=== PATIENT | female | born 1940 | race Caucasian/White ===

== ENCOUNTER → 2016-08-01 | Outpatient (CLI) | payer OTHER ==
[~2016-08-01] MED LIST: ALBINS/ INH; ALBU0.08 INH; ALBU1AER9 INH; AMOX500C3 PO; AMT10 PO; APR25 PO; APR50 PO; ASPI81TA28 PO; CALC-323 PO; CARV25TA2 PO; CINN1CAP2 PO; CRG25 PO; DOCU100C PO; DOXY100C76 PO; FLNIN/ NAE; GLGKIT PO; INSUINJ13 SC; ISOS120T5 PO; ISOS60TA25 PO; LPT40 PO; LSX20 PO; LSX40 PO; LVQ750 PO; MULT-506 PO; NRV5 PO; NTRGSL/4 UT; NVLGI7030 SC; PLV75 PO; POLY335025 PO; TRAM-10 PO; VNTHFA/IN INH
--- NOTE | 2016-08-01 16:00 | DIAGNOSTIC IMAGING REPORT ---
MRI OF THE LUMBAR SPINE WITHOUT IV CONTRAST CLINICAL HISTORY: Chronic low back pain. Lumbar radiculopathy. COMPARISON STUDY: MRI of the lumbar spine dated 01/18/2010. CT scan of the lumbar spine dated 02/07/2010. TECHNIQUE: MRI of the lumbar spine is performed utilizing various T1 and T2-weighted sequences in the axial and sagittal planes. IV contrast was not administered for this examination. FINDINGS: Lumbar spine: Vertebral body height is maintained throughout the lumbar spine. There is evidence of laminectomy and posterior fusion at L4-L5. There is minimal anterolisthesis at L4-L5. Alignment is otherwise preserved. Small anterior osteophytes are seen throughout. Chronic degenerative endplate sclerosis is noted at L2-L3. Milder chronic endplate change is seen at L1-L2, and L5-S1. The transverse processes are intact as imaged. There is no evidence of spondylolysis. Intervertebral discs: There is evidence of discectomy at L4-L5. Degenerative disc desiccation and mild loss of height is seen in the remaining lumbar levels. Loss of height is greatest at L5-S1. Spinal cord: The visualized spinal cord is normal in morphology and signal intensity. The conus medullaris terminates at the level of L1. There is clumping and tethering of the nerve roots of the cauda equina at the level of L4-L5. T12-L1: There is a small posterior disc herniation with an inferiorly extruded fragment. This measures at least 10 mm. This causes only mild acquired compromise of the central canal with a minimum AP diameter of 11 mm. L1-L2: There is a small posterior disc bulge eccentric to the left. The central canal is clear. In conjunction with facet arthropathy and lateral marginal osteophytes, this causes left-sided neural foraminal stenosis and may impinge on the exiting left L1 nerve root. The right neural foramen appears clear. L2-L3: Unremarkable. L3-L4: There is hypertrophy of the ligamentum flavum. The central canal appears clear. The neural foramina are patent. Mild facet arthropathy is of no consequence. L4-L5: Postsurgical scarring is suggested around the thecal sac. There is minimal narrowing of the central canal which measures a minimum AP diameter of 10 mm. The neural foramina are grossly clear, but not well assessed. L5-S1: There is a posterior disc bulge eccentric to the left with annular fissure. There is no significant acquired compromise of the central canal at this level. The central canal is mildly narrowed, likely on a congenital basis. This measures up to 10 mm. There is bilateral subarticular stenosis with possible impingement on the exiting bilateral L5 nerve roots. Sacrum: The visualized sacrum is normal in morphology and signal intensity. Soft tissues: There is fatty atrophy of the paraspinous musculature. A postoperative fluid collection is seen posteriorly at the L4-L5 level. This measures 4.4 x 1.1 x 2.8 cm and is similar appearance to the 01/18/2010 examination. This does not cause mass effect on the posterior thecal sac. A left adrenal nodule is only partially visualized. This was also seen in 2010. IMPRESSION: 1. There are postoperative changes at L4-L5 as above. 2. There is circumferential scarring around the thecal sac at L4-L5. The nerve roots of the cauda equina are clumped and tethered at this level, consistent with adhesions/chronic arachnoiditis. This is similar in appearance to the 2010 examination. 3. Lumbosacral spondylosis at additional levels as above. See discussion for detailed level by level analysis. 4. There is a disc herniation posteriorly at T12-L1 with an inferiorly extruded fragment. This causes only mild acquired compromise of the central canal. 5. No destructive bony lesion is seen. Degenerative endplate change as above. 6. A small postoperative fluid collection posteriorly at L4-L5 likely represents a seroma and this is unchanged from 2010. This is of doubtful significance. Dictated: 08/01/2016 3:25 PM Transcribed: 08/01/2016 4:00 PM Ej Electronically signed by: Clinton Henson M.D. 08/01/2016 4:22 PM Dictated Date/Time: 08/01/2016 3:25 PM
== END | disposition home or self-care (01) ==
LOC: C.MRIBC 13:47
PROVIDERS: ATTEND Pain Medicine Interventional Pain Medicine
DX: M47.27 Other spondylosis with radiculopathy, lumbosacral region (principal); M51.25 Other intervertebral disc displacement, thoracolumbar region; R90.89 Other abnormal findings on diagnostic imaging of central nervous system

== ENCOUNTER → 2016-09-05 | Outpatient (CLI) | payer OTHER ==
[2016-09-05 12:43] LABS: URINE APPEARANCE CLEAR (CLEAR); URINE BILIRUBIN NEG (NEG); URINE COLOR YELLOW; URINE EPITHELIAL CELL AUTO >30 /lpf (0-5); URINE NITRITE NEG (NEG); URINE SPECIFIC GRAVITY 1.014 (1.000-1.030); UROBILINOGEN NEG (NEG)
[2016-09-05 12:44] LABS: HEMATOCRIT 35.2 % (37-47); MEAN CELL VOLUME 94.4 fL (80-100); MEAN CORPUSCULAR HGB CONC 31.8 g/dl (32-36); MEAN PLATELET VOLUME 11.2 fL (7.4-10.4); PLATELET COUNT 152 K/uL (130-400); RED BLOOD COUNT 3.73 M/uL (4.2-5.4); WHITE BLOOD COUNT 6.87 K/uL (4.8-10.8)
[2016-09-05 12:55] LABS: MANUAL MICROSCOPIC REQUIRED? NO; REVIEW REQ? NO
[2016-09-05 13:05] LABS: BLOOD UREA NITROGEN 24 mg/dl (7-18); BUN/CREATININE RATIO 20.1 (10-20); CALCIUM 8.9 mg/dl (8.5-10.1); CARBON DIOXIDE 29 mmol/L (21-32); CHLORIDE 108 mmol/L (98-107); GLUCOSE 98 mg/dl (70-99); POTASSIUM 4.3 mmol/L (3.5-5.1); SODIUM 143 mmol/L (136-145)
[2016-09-05 13:17] LABS: ALKALINE PHOSPHATASE 37 U/L (45-117); ALT/SGPT 28 U/L (12-78); AST/SGOT 16 U/L (15-37); PHOSPHORUS 3.6 mg/dl (2.5-4.9)
[2016-09-05 14:12] LABS: ESTIMATED AVERAGE GLUCOSE 157 mg/dl; HA1C FLAG Normal (Normal)
[2016-09-05 14:32] LABS: URINE PROTIEN/CREAT RATIO 1.3 (0-0.2); URINE TOTAL PROTEIN 72.5 mg/dl (0-11.9)
== END | disposition home or self-care (01) ==
LOC: C.LABBFT 09:06
PROVIDERS: ATTEND Internal Medicine Nephrology
DX: I12.9 Hypertensive chronic kidney disease with stage 1 through stage 4 chronic kidney disease, or unspecified chronic kidney disease (principal); N18.3 Chronic kidney disease, stage 3 (moderate); R80.9 Proteinuria, unspecified; D64.9 Anemia, unspecified; N25.81 Secondary hyperparathyroidism of renal origin; E11.22 Type 2 diabetes mellitus with diabetic chronic kidney disease; R53.83 Other fatigue; E78.00 Pure hypercholesterolemia, unspecified

== ENCOUNTER 2017-01-12 12:43 | Emergency (ER) | payer OTHER ==
[~2017-01-12] VITALS: Ht 154.9 cm; Wt 102.4 kg
[~2017-01-12 12:43] MED LIST changes: -ALBINS/ INH; -AMOX500C3 PO; -AMT10 PO; -APR25 PO; -ASPI81TA28 PO; -CRG25 PO; -DOCU100C PO; -DOXY100C76 PO; -FLNIN/ NAE; -INSUINJ13 SC; -ISOS120T5 PO; -LPT40 PO; -LSX40 PO; -LVQ750 PO; -MULT-506 PO; -NRV5 PO; -NTRGSL/4 UT; -PLV75 PO; -POLY335025 PO; -TRAM-10 PO; -VNTHFA/IN INH
[2017-01-12 12:47] VITALS: TEMP 36.8; Ht 154.9 cm; Wt 102.4 kg
[2017-01-12] MEDS ORDERED: TRAMADOL HCL 50 MG TAB PO STA (13:26)
--- NOTE | 2017-01-12 13:26 | EMERGENCY ROOM VISIT NOTE ---
History First contact with patient: 13:04 Chief Complaint: LEG PAIN,LEG INJURY Stated Complaint: L LOWER LEG RED & SORE History of Present Illness The patient is a 76 year old female who presents to the Emergency Room with complaints of left leg pain and redness that started 2 days ago. The patient denies any injury to the leg. She has tried tramadol with minimal relief. She denies any fever or chills. She denies any history of blood clots. She does admit to mild shortness of breath particularly with exertion. She does have a history of asthma. She is also complaining of a mild productive cough with green sputum. The cough has been intermittent over the last few weeks. She denies any chest pain or pressure. Review of Systems 10 system review performed and negative unless noted in HPI or below Past Medical/Surgical History Medical Problems: (1) Cellulitis of face (2) Chest pain (3) Chronic diastolic (congestive) heart failure (4) Diabetes (5) Heart disease (6) Hypertension (7) Kidney disease (8) Parotitis not due to mumps Surgical Problems: (1) H/O heart bypass surgery (2) History of heart artery stent (3) Left femoral psuedoanerysm repair Family History Diabetes mellitus Gallbladder disease Heart disease Hypertension Kidney disease Kidney stones Social History Smoking Status: Never Smoker Alcohol Use: none Marital Status: Housing Status: lives alone Occupation Status: retired Current/Historical Medications Scheduled Amitriptyline HCl (Amitriptyline HCl), 30 MG PO HS Aspirin (Aspirin Ec), 81 MG PO QAM Atorvastatin (Atorvastatin Calcium), 80 MG PO HS Carvedilol (Coreg), 37.5 MG PO BID Cinnamon (Cinnamon), 1,000 MG PO HS Clopidogrel Bisulfate (Clopidogrel), 75 MG PO QAM Docusate Sodium (Stool Softener), 100 MG PO HS Doxycycline Monohydrate (Monodox), 100 MG PO BID Furosemide (Furosemide), 20 MG PO QAM Hydralazine HCl (Hydralazine HCl), 50 MG PO TID Insulin Aspart Protamine & Asp (Novolog Mix 70/30 Prefill), 40 UNITS SC QAM Insulin Aspart Protamine & Asp (Novolog Mix 70/30), 90 UNITS SC QPM Isosorbide Mononitrate Ext Rel (Imdur Ext Rel), 120 MG PO BID Multivitamin (Multivitamin), 1 TAB PO QAM Tramadol (Ultram), 100 MG PO BID Scheduled PRN Fluticasone Propionate (Fluticasone Propionate), 2 SPRAYS ZANE DAILY PRN for Allergies Nitroglycerin (Nitrostat), 0.4 MG UT UD PRN for Chest Pain Polyethylene Glycol 3350 (Miralax), 1 PACK PO DAILY PRN for Constipation Physical Exam Vital Signs Date Time Temp Pulse Resp B/P (MAP) Pulse Ox O2 Delivery O2 Flow Rate FiO2 01/12/17 17:15 73 18 205/78 98 01/12/17 16:55 73 221/85 01/12/17 16:45 80 18 221/88 98 Room Air 01/12/17 15:30 76 18 199/118 97 Room Air 01/12/17 14:12 71 18 215/96 98 Room Air 01/12/17 12:47 36.8 77 18 185/71 96 Room Air Physical Exam VITALS: Vitals are noted on the nurse's note and reviewed by myself. Vital signs stable. GENERAL: 76-year-old female, in no acute distress, nondiaphoretic, well- developed well-nourished. SKIN: Mild erythema noted to the anterior aspect of the left bull. There is no erythematous streaking. The skin is intact. No significant warmth appreciated. HEAD: Normocephalic atraumatic. MOUTH: Mucous membranes slightly dry . NECK: No JVD.well-healed incisional scars bilaterally HEART: Regular rate and rhythm without murmurs gallops or rubs. LUNGS: Clear to auscultation bilaterally without wheezes, rales or rhonchi. No accessory muscle use. ABDOMEN: Positive bowel sounds x 4.Soft, nontender, without organomegaly. No guarding or rebound tenderness. MUSCULOSKELETAL: Trace pitting edema in the lower extremities bilaterally. Skin as noted above. Negative Homans sign. No significant calf tenderness. Strength 5/5 throughout. NEURO: Patient was alert and oriented to person place and time. Normal sensation to touch. No focal neurological deficits. Medical Decision & Procedures ER Provider Diagnostic Interpretation: LEFT VENOUS DOPP LOWER EXT UNILAT CLINICAL HISTORY: 76 years-old Female presenting with LLE redness swelling. TECHNIQUE: Real-time grayscale and color and spectral Doppler ultrasound imaging of the veins of the left lower extremity was performed. Compression and augmentation were also utilized. COMPARISON: 05/30/2015. FINDINGS: Left: Common femoral vein: Patent. Femoral vein: Patent. Greater saphenous vein: Patent. Popliteal vein: Patent. Calf veins: Limited visualization. Other: Heterogeneously hypoechoic 1.9 x 3.3 x 1.0 cm collection in the popliteal fossa likely represents a popliteal cyst. IMPRESSION: No evidence of deep venous thrombosis. Electronically signed by: Dusty Askew M.D. 01/12/2017 2:50 PM Dictated Date/Time: 01/12/2017 2:49 PM The status of this report is Signed. Draft = Not yet reviewed or approved by Radiologist. Signed = Reviewed and approved by Radiologist. CHEST 2 VIEWS ROUTINE CLINICAL HISTORY: 76 years-old Female presenting with mild SOB and cough. TECHNIQUE: PA and lateral views of the chest were obtained. COMPARISON: 03/28/2016. FINDINGS: Median sternotomy wires and bypass graft rings noted. Atherosclerosis of aortic arch. Mild prominence of the cardiac silhouette unchanged. The main pulmonary artery may also be slightly enlarged. Increased prominence of the lateral laura, likely representing prominent vasculature. Retrocardiac opacity suggested. No large effusion or pneumothorax. Degenerative changes of the spine. Cholecystectomy clips noted. IMPRESSION: 1. Left lower lobe opacity. Infectious etiology cannot be excluded. 2. Cardiomegaly with increased prominence of pulmonary vasculature. No david pulmonary edema. Electronically signed by: Dusty Askew M.D. 01/12/2017 2:40 PM Dictated Date/Time: 01/12/2017 2:37 PM The status of this report is Signed. Draft = Not yet reviewed or approved by Radiologist. Signed = Reviewed and approved by Radiologist. Laboratory Results 01/12/17 13:55 Red Blood Count 3.78, Mean Corpuscular Volume 90.7, Mean Corpuscular Hemoglobin 29.6, Mean Corpuscular Hemoglobin Concent 32.7, Mean Platelet Volume 10.9, Neutrophils (%) (Auto) 70.4, Lymphocytes (%) (Auto) 16.8, Monocytes (%) (Auto) 9.6, Eosinophils (%) (Auto) 2.6, Basophils (%) (Auto) 0.3, Neutrophils # (Auto) 6.72, Lymphocytes # (Auto) 1.61, Monocytes # (Auto) 0.92, Eosinophils # (Auto) 0.25, Basophils # (Auto) 0.03 01/12/17 13:55 Test 01/12/17 13:55 White Blood Count 9.56 K/uL (4.8-10.8) Red Blood Count 3.78 M/uL (4.2-5.4) Hemoglobin 11.2 g/dL (12.0-16.0) Hematocrit 34.3 % (37-47) Mean Corpuscular Volume 90.7 fL (80-100) Mean Corpuscular Hemoglobin 29.6 pg (25-34) Mean Corpuscular Hemoglobin Concent 32.7 g/dl (32-36) Platelet Count 152 K/uL (130-400) Mean Platelet Volume 10.9 fL (7.4-10.4) Neutrophils (%) (Auto) 70.4 % Lymphocytes (%) (Auto) 16.8 % Monocytes (%) (Auto) 9.6 % Eosinophils (%) (Auto) 2.6 % Basophils (%) (Auto) 0.3 % Neutrophils # (Auto) 6.72 K/uL (1.4-6.5) Lymphocytes # (Auto) 1.61 K/uL (1.2-3.4) Monocytes # (Auto) 0.92 K/uL (0.11-0.59) Eosinophils # (Auto) 0.25 K/uL (0-0.5) Basophils # (Auto) 0.03 K/uL (0-0.2) RDW Standard Deviation 45.8 fL (36.4-46.3) RDW Coefficient of Variation 14.0 % (11.5-14.5) Immature Granulocyte % (Auto) 0.3 % Immature Granulocyte # (Auto) 0.03 K/uL (0.00-0.02) Anion Gap 6.0 mmol/L (3-11) Est Creatinine Clear Calc Drug Dose 41.1 ml/min Estimated GFR () 46.5 Estimated GFR (Non- 40.1 BUN/Creatinine Ratio 20.0 (10-20) Calcium Level 9.3 mg/dl (8.5-10.1) Chemistry Specimen Hemolysis Medications Administered Medications (Trade) Dose Ordered Sig/Nick Route Start Time Stop Time Status Last Admin Dose Admin Tramadol HCl (Ultram Tab) 50 mg NOW STAT PO 01/12/17 13:26 01/12/17 13:27 DC 01/12/17 13:55 50 MG Albuterol/ Ipratropium (Duoneb) 3 ml STK-MED ONCE .ROUTE 01/12/17 13:54 01/12/17 13:55 DC 01/12/17 13:57 3 ML Ceftriaxone Sodium 1 gm/ Dextrose 50 ml @ 100 mls/hr TODAY@1530 IV 01/12/17 15:30 01/12/17 17:00 DC 01/12/17 15:30 100 MLS/HR Hydralazine HCl (HydrALAZINE INJ) 10 mg NOW STAT IV. 01/12/17 15:10 01/12/17 15:11 DC 01/12/17 15:34 10 MG Metoprolol Tartrate (Lopressor Iv) 5 mg NOW STAT IV 01/12/17 16:48 01/12/17 16:49 DC 01/12/17 16:55 5 MG ED Course Patient was seen and examined Vital signs including blood pressure were reviewed medications list was verified with patient Labs were obtained, and a saline lock was established The patient was given 1 Ultram 50 mg by mouth for pain Imaging was performed and reviewed The patient was reassessed and resting comfortably. Her blood pressure was noted to still be high. She was given 1 dose of hydralazine 10 mg IV. Upon reevaluation, the patient still had an elevated blood pressure. She was given 1 dose of metoprolol 5 mg IV. We discussed at length the patient's blood pressure. She denied any symptoms. She was advised to follow-up with her primary care physician for a recheck. I reviewed discharge instructions the patient. They voiced understanding and had no further questions. Medical Decision Differential diagnosis: DVT, cellulitis, PE, asthma exacerbation, pneumonia, bronchitis, CHF exacerbation This patient is a 76-year-old female that presented to the emergency department with left lower extremity redness and pain for approximately 2 days. No known injury. My main concerns were possibly a DVT or mild cellulitis. The patient is afebrile. There is no leukocytosis. There was no DVT. Believe she likely has a mild cellulitis. She has also had a cough with a questionable opacity on the x-ray. She was put on doxycycline, which should cover both a pneumonia and cellulitis. She was not hypoxic and had good symptomatic relief with the DuoNeb. She will continue her nebulizer treatments as well at home. Of note, the patient's blood pressure was elevated in the emergency department. She did miss her dose of hydralazine at home. She denied any symptoms such as dizziness, headache, chest pain or pressure. She also informed me that she gets white coat hypertension. I advised her to follow-up with her PCP as soon as possible for this. She was educated on symptoms of hypertensive urgency, for which she agrees to return to emergency department Medication Reconcilliation Current Medication List: was personally reviewed by me Blood Pressure Screening Patient's blood pressure: Elevated blood pressure Blood pressure disposition: Elevated BP felt to be situational Impression Primary Impression: Left leg cellulitis Additional Impression: Hypertension Departure Information Dispostion Home / Self-Care Condition GOOD Prescriptions Doxycycline Monohydrate (Monodox) 100 Mg Cap 100 MG PO BID for 7 Days, #14 CAP Prov: Mariely Pinzon PA-C 01/12/17 Referrals Nicolette Marquez M.D. (PCP) Patient Instructions Cellulitis Dc, My [facility] Additional Instructions You were treated in the emergency department today for cellulitis of your left leg and a respiratory tract infection. Please finish the entire course of antibiotics Please use your nebulizer every 6 hours for the next 48 hours Please follow-up with your primary care physician within the next 2-3 days for a recheck of your leg Ibuprofen 400 mg and/or Tylenol 1000 mg every 8 hours as needed for pain or fever You may also alternate these medications for more effective pain relief: Ibuprofen --4 HRS--> Tylenol --4 HRS--> ibuprofen --4 HRS--> Tylenol .... Return to the emergency department if you have any of the following symptoms: -Fever of 102F or greater -Persistent vomiting - Persistent diarrhea -Lethargy -Chest pain -Shortness of breath -Increasing redness, swelling or pain of the leg Problem Qualifiers
[2017-01-12] MEDS ORDERED: ALBUT/IPRATROP 3MG/0.5MG NEB 3 ML VIAL INH STA (13:46)
[2017-01-12] MEDS ORDERED: ALBUT/IPRATROP 3MG/0.5MG NEB 3 ML VIAL ONE (13:54)
[2017-01-12 14:07] LABS: BASO % 0.3 %; BASO ABS # 0.03 K/uL (0-0.2); COMPLETE YES; EOS % 2.6 %; HEMATOCRIT 34.3 % (37-47); IG% 0.3 %; LYMPH % 16.8 %; LYMPH ABS # 1.61 K/uL (1.2-3.4); MEAN CELL VOLUME 90.7 fL (80-100); MEAN CORPUSCULAR HEMOGLOBIN 29.6 pg (25-34); MEAN CORPUSCULAR HGB CONC 32.7 g/dl (32-36); MEAN PLATELET VOLUME 10.9 fL (7.4-10.4); MONO % 9.6 %; NEUT % 70.4 %; PLATELET COUNT 152 K/uL (130-400); RED BLOOD COUNT 3.78 M/uL (4.2-5.4); WHITE BLOOD COUNT 9.56 K/uL (4.8-10.8)
[2017-01-12 14:31] LABS: CALCIUM 9.3 mg/dl (8.5-10.1); CREATININE 1.3 mg/dl (0.60-1.20); POTASSIUM 4.4 mmol/L (3.5-5.1)
--- NOTE | 2017-01-12 14:41 | DIAGNOSTIC IMAGING REPORT ---
CHEST 2 VIEWS ROUTINE CLINICAL HISTORY: 76 years-old Female presenting with mild SOB and cough. TECHNIQUE: PA and lateral views of the chest were obtained. COMPARISON: 03/28/2016. FINDINGS: Median sternotomy wires and bypass graft rings noted. Atherosclerosis of aortic arch. Mild prominence of the cardiac silhouette unchanged. The main pulmonary artery may also be slightly enlarged. Increased prominence of the lateral laura, likely representing prominent vasculature. Retrocardiac opacity suggested. No large effusion or pneumothorax. Degenerative changes of the spine. Cholecystectomy clips noted. IMPRESSION: 1. Left lower lobe opacity. Infectious etiology cannot be excluded. 2. Cardiomegaly with increased prominence of pulmonary vasculature. No david pulmonary edema. Electronically signed by: Dusty Askew M.D. 01/12/2017 2:40 PM Dictated Date/Time: 01/12/2017 2:37 PM
--- NOTE | 2017-01-12 14:51 | DIAGNOSTIC IMAGING REPORT ---
LEFT VENOUS DOPP LOWER EXT UNILAT CLINICAL HISTORY: 76 years-old Female presenting with LLE redness swelling. TECHNIQUE: Real-time grayscale and color and spectral Doppler ultrasound imaging of the veins of the left lower extremity was performed. Compression and augmentation were also utilized. COMPARISON: 05/30/2015. FINDINGS: Left: Common femoral vein: Patent. Femoral vein: Patent. Greater saphenous vein: Patent. Popliteal vein: Patent. Calf veins: Limited visualization. Other: Heterogeneously hypoechoic 1.9 x 3.3 x 1.0 cm collection in the popliteal fossa likely represents a popliteal cyst. IMPRESSION: No evidence of deep venous thrombosis. Electronically signed by: Dusty Askew M.D. 01/12/2017 2:50 PM Dictated Date/Time: 01/12/2017 2:49 PM
--- NOTE | 2017-01-12 15:03 | EMERGENCY ROOM VISIT NOTE ---
ED Visit Note First contact with patient: 13:04 I have seen and examined this patient with Mariely Pinzon and generally agree with the treatment plan as discussed. Problem List Medical Problems: (1) Diabetes Status: Chronic (2) Heart disease Status: Chronic (3) Hypertension Status: Chronic (4) Kidney disease Status: Chronic Surgical Problems: (1) H/O heart bypass surgery Status: Resolved (2) History of heart artery stent Status: Resolved (3) Left femoral psuedoanerysm repair Status: Resolved Current/Historical Medications Scheduled Amitriptyline HCl (Amitriptyline HCl), 30 MG PO HS Aspirin (Aspirin Ec), 81 MG PO QAM Atorvastatin (Atorvastatin Calcium), 80 MG PO HS Carvedilol (Coreg), 37.5 MG PO BID Cinnamon (Cinnamon), 1,000 MG PO HS Clopidogrel Bisulfate (Clopidogrel), 75 MG PO QAM Docusate Sodium (Stool Softener), 100 MG PO HS Furosemide (Furosemide), 20 MG PO QAM Hydralazine HCl (Hydralazine HCl), 50 MG PO TID Insulin Aspart Protamine & Asp (Novolog Mix 70/30 Prefill), 40 UNITS SC QAM Insulin Aspart Protamine & Asp (Novolog Mix 70/30), 90 UNITS SC QPM Isosorbide Mononitrate Ext Rel (Imdur Ext Rel), 120 MG PO BID Multivitamin (Multivitamin), 1 TAB PO QAM Tramadol (Ultram), 100 MG PO BID Scheduled PRN Fluticasone Propionate (Fluticasone Propionate), 2 SPRAYS ZANE DAILY PRN for Allergies Nitroglycerin (Nitrostat), 0.4 MG UT UD PRN for Chest Pain Polyethylene Glycol 3350 (Miralax), 1 PACK PO DAILY PRN for Constipation Allergies Coded Allergies: Sulfa Antibiotics (Verified Allergy, Intermediate, RASH/PRURITIS, 03/28/16) Omeprazole (Verified Adverse Reaction, Intermediate, interacts w/ clopidigrol, 03/28/16) Chlorpropamide (Verified Adverse Reaction, Mild, N/V, 03/28/16) ARI Inhibitors (Verified Adverse Reaction, Unknown, AVOIDS SECONDARY TO "OTHER MEDICATIONS" PER PT, 03/28/16) Vital Signs Date Time Temp Pulse Resp B/P (MAP) Pulse Ox O2 Delivery O2 Flow Rate FiO2 01/12/17 14:12 71 18 215/96 98 Room Air 01/12/17 12:47 36.8 77 18 185/71 96 Room Air Laboratory Results 01/12/17 13:55 Red Blood Count 3.78, Mean Corpuscular Volume 90.7, Mean Corpuscular Hemoglobin 29.6, Mean Corpuscular Hemoglobin Concent 32.7, Mean Platelet Volume 10.9, Neutrophils (%) (Auto) 70.4, Lymphocytes (%) (Auto) 16.8, Monocytes (%) (Auto) 9.6, Eosinophils (%) (Auto) 2.6, Basophils (%) (Auto) 0.3, Neutrophils # (Auto) 6.72, Lymphocytes # (Auto) 1.61, Monocytes # (Auto) 0.92, Eosinophils # (Auto) 0.25, Basophils # (Auto) 0.03 01/12/17 13:55 Test 01/12/17 13:55 White Blood Count 9.56 K/uL (4.8-10.8) Red Blood Count 3.78 M/uL (4.2-5.4) Hemoglobin 11.2 g/dL (12.0-16.0) Hematocrit 34.3 % (37-47) Mean Corpuscular Volume 90.7 fL (80-100) Mean Corpuscular Hemoglobin 29.6 pg (25-34) Mean Corpuscular Hemoglobin Concent 32.7 g/dl (32-36) Platelet Count 152 K/uL (130-400) Mean Platelet Volume 10.9 fL (7.4-10.4) Neutrophils (%) (Auto) 70.4 % Lymphocytes (%) (Auto) 16.8 % Monocytes (%) (Auto) 9.6 % Eosinophils (%) (Auto) 2.6 % Basophils (%) (Auto) 0.3 % Neutrophils # (Auto) 6.72 K/uL (1.4-6.5) Lymphocytes # (Auto) 1.61 K/uL (1.2-3.4) Monocytes # (Auto) 0.92 K/uL (0.11-0.59) Eosinophils # (Auto) 0.25 K/uL (0-0.5) Basophils # (Auto) 0.03 K/uL (0-0.2) RDW Standard Deviation 45.8 fL (36.4-46.3) RDW Coefficient of Variation 14.0 % (11.5-14.5) Immature Granulocyte % (Auto) 0.3 % Immature Granulocyte # (Auto) 0.03 K/uL (0.00-0.02) Anion Gap 6.0 mmol/L (3-11) Est Creatinine Clear Calc Drug Dose 41.1 ml/min Estimated GFR () 46.5 Estimated GFR (Non- 40.1 BUN/Creatinine Ratio 20.0 (10-20) Calcium Level 9.3 mg/dl (8.5-10.1) Chemistry Specimen Hemolysis Medications Administered Medications (Trade) Dose Ordered Sig/Nick Route Start Time Stop Time Status Last Admin Dose Admin Tramadol HCl (Ultram Tab) 50 mg NOW STAT PO 01/12/17 13:26 01/12/17 13:27 DC 01/12/17 13:55 50 MG Albuterol/ Ipratropium (Duoneb) 3 ml STK-MED ONCE .ROUTE 01/12/17 13:54 01/12/17 13:55 DC 01/12/17 13:57 3 ML Departure Information Referrals Nicolette Marquez M.D. (PCP) Patient Instructions [facility]
[2017-01-12] MEDS ORDERED: HydrALAZINE HCL 20 MG/ML VIAL IV. STA (15:10)
[2017-01-12] MEDS ORDERED: CEFTRIAXONE SOD INJ 1 GM in DEXTROSE 5% ADD-VANTAGE 50ML 50 ML IV SCH (15:30)
[2017-01-12] MEDS ORDERED: CEFTRIAXONE SOD INJ 1 GM ADDVIAL ONE (15:32)
[2017-01-12] MEDS ORDERED: DOXY100C76 PO (15:49)
[2017-01-12] MEDS ORDERED: METOPROLOL TARTRATE 1 MG/ML VIAL IV STA (16:48)
[2017-01-12 17:15] VITALS: BP 205/78; PULSE 73; O2SAT 98
[2017-02-17] MEDS ORDERED: MULT-506 PO (02:20)
[2017-02-17] MEDS ORDERED: AMT10 PO (09:55)
[2017-02-17] MEDS ORDERED: TRAM-10 PO (11:50)
[2017-02-17] MEDS ORDERED: ISOS120T5 PO (13:04)
[2017-02-17] MEDS ORDERED: INSUINJ13 SC (13:04)
[2017-02-17] MEDS ORDERED: NVLGI7030 SC (13:04)
[2017-02-17] MEDS ORDERED: POLY335025 PO (15:19)
== END 2017-01-12 17:15 | disposition home or self-care (01) ==
LOC: C.EDB 12:44
DX: L03.116 Cellulitis of left lower limb (principal); I11.0 Hypertensive heart disease with heart failure; J45.909 Unspecified asthma, uncomplicated; E11.9 Type 2 diabetes mellitus without complications; N28.9 Disorder of kidney and ureter, unspecified; Z95.1 Presence of aortocoronary bypass graft; Z83.3 Family history of diabetes mellitus; Z83.79 Family history of other diseases of the digestive system; Z82.49 Family history of ischemic heart disease and other diseases of the circulatory system; Z84.1 Family history of disorders of kidney and ureter; Z79.82 Long term (current) use of aspirin; Z79.4 Long term (current) use of insulin; Z79.899 Other long term (current) drug therapy

== ENCOUNTER 2017-02-17 20:23 | Inpatient (IN) | payer OTHER ==
[~2017-02-17] VITALS: Ht 157.5 cm; Wt 103.9 kg
[~2017-02-17 20:23] MED LIST changes: -ALBU0.08 INH; -ALBU1AER9 INH; +AMT10 PO; -CALC-323 PO; -GLGKIT PO; +INSUINJ13 SC; +ISOS120T5 PO; -ISOS60TA25 PO; +MULT-506 PO; +POLY335025 PO; +TRAM-10 PO
[2017-02-17] MEDS ORDERED: PLV75 PO (20:25)
[2017-02-17] MEDS ORDERED: LPT40 PO (20:26)
[2017-02-17] MEDS ORDERED: NTRGSL/4 UT (20:28)
[2017-02-17] MEDS ORDERED: ASPI81TA28 PO (20:28)
[2017-02-17] MEDS ORDERED: FLNIN/ NAE (20:30)
[2017-02-17] MEDS ORDERED: ASPIRIN 81 MG CHEW PO STA (20:30)
[2017-02-17] MEDS ORDERED: ONDANSETRON INJ 2 MG/ML 2 ML VIAL IV STA (20:33)
[2017-02-17] MEDS ORDERED: DOCU100C PO (20:35)
[2017-02-17] MEDS ORDERED: MoRPHine SULFATE 4 MG/ML 1 ML CARP\\VIAL IV PRN (20:45)
[2017-02-17] MEDS: NITROGLYCERIN 0.4 MG SL PER TAB CHARGE SL PRN ×2 (20:55→21:03)
[2017-02-17 21:03] LABS: BASO % 0.3 %; BASO ABS # 0.02 K/uL (0-0.2); COMPLETE YES; EOS % 1.8 %; IG% 0.4 %; LYMPH % 20.7 %; LYMPH ABS # 1.51 K/uL (1.2-3.4); MEAN CELL VOLUME 91.4 fL (80-100); MEAN CORPUSCULAR HEMOGLOBIN 29.4 pg (25-34); MEAN CORPUSCULAR HGB CONC 32.1 g/dl (32-36); MEAN PLATELET VOLUME 10.8 fL (7.4-10.4); NEUT % 69.8 %; PLATELET COUNT 165 K/uL (130-400); RED BLOOD COUNT 3.61 M/uL (4.2-5.4); WHITE BLOOD COUNT 7.28 K/uL (4.8-10.8)
[2017-02-17 21:20] LABS: BUN/CREATININE RATIO 17.1 (10-20); CALCIUM 8.9 mg/dl (8.5-10.1); CREATININE 1.6 mg/dl (0.60-1.20); POTASSIUM 4.2 mmol/L (3.5-5.1)
[2017-02-17 21:21] LABS: INR 1.1 (0.9-1.1); PROTHROMBIN TIME (PATIENT) 11.6 SECONDS (9.0-12.0)
[2017-02-17 21:25] LABS: CKMB/CK RATIO 2.2 (0-3.0)
--- NOTE | 2017-02-17 21:40 | EMERGENCY ROOM VISIT NOTE ---
History Report prepared by Linda: Loli Hoover Under the Supervision of: Dr. Mamadou Sosa D.O. First contact with patient: 20:26 Chief Complaint: CHEST PAIN Stated Complaint: SOB,FEEL LIKE BEING CHOKED,CHEST PAIN History of Present Illness The patient is a 76 year old female who presents to the Emergency Room with complaints of constant chest pain for the past hour. She reports shortness of breath and states that it feels like she is being choked. Her symptoms are worsened with exertion. Her chest pain radiates into her upper back. The patient rates her pain as a 5/10 in severity. She has a history of cardiac issues and states that these symptoms feel similar. She has been feeling short of breath for a few weeks. She was recently at her PCP office a few weeks ago and diagnosed with pneumonia. The patient denies fevers, cough, nausea, abdominal pain, and any worsening leg swelling. She takes aspirin and Plavix. She did not take any nitro today. She denies any personal history of blood clots. Source of History: patient Onset: 1 hour ago Position: chest Symptom Intensity: 5/10 Quality: other (choking) Timing: constant Modifying Factors (Worsening): exertion Associated Symptoms: + SOB, + back pain (upper), No cough, No nausea, No abdominal pain Review of Systems See HPI for pertinent positives & negatives. A total of 10 systems reviewed and were otherwise negative. Past Medical & Surgical Medical Problems: (1) Cellulitis of face (2) Chest pain (3) Chronic diastolic (congestive) heart failure (4) Diabetes (5) Heart disease (6) Hypertension (7) Kidney disease (8) Parotitis not due to mumps Surgical Problems: (1) H/O heart bypass surgery (2) History of heart artery stent (3) Left femoral psuedoanerysm repair Family History Diabetes mellitus Gallbladder disease Heart disease Hypertension Kidney disease Kidney stones Social History Smoking Status: Never Smoker Alcohol Use: none Marital Status: Housing Status: lives alone Occupation Status: retired Current/Historical Medications Scheduled Amitriptyline HCl (Amitriptyline HCl), 30 MG PO HS Amoxicillin (Amoxil), 500 MG PO TID Aspirin (Aspirin Ec), 81 MG PO QAM Atorvastatin (Atorvastatin Calcium), 80 MG PO HS Carvedilol (Carvedilol), 37.5 MG PO BID Clopidogrel Bisulfate (Clopidogrel), 75 MG PO QAM Docusate Sodium (Stool Softener), 100 MG PO HS Furosemide (Furosemide), 20 MG PO DAILY Hydralazine Hcl (Apresoline), 25 MG PO TID Insulin Aspart Protamine & Asp (Novolog Mix 70/30 Prefill), 40 UNITS SC QAM Insulin Aspart Protamine & Asp (Novolog Mix 70/30), 90 UNITS SC QPM Isosorbide Mononitrate Ext Rel (Imdur Ext Rel), 120 MG PO BID Multivitamin (Multivitamin), 1 TAB PO QAM Tramadol (Ultram), 100 MG PO BID Scheduled PRN Albuterol Hfa (Ventolin Hfa), 2 PUFF INH Q6H PRN for Shortness of Breath Albuterol Sulf (Proventil 0.083% 2.5MG/3ML), 2.5 MG INH TID PRN for Shortness of Breath Cinnamon (Cinnamon), 2 CAP PO DAILY PRN for HIGH BP Fluticasone Propionate (Fluticasone Propionate), 2 SPRAYS ZANE DAILY PRN for Allergies Nitroglycerin (Nitrostat), 0.4 MG UT UD PRN for Chest Pain Polyethylene Glycol 3350 (Miralax), 1 PACK PO DAILY PRN for Constipation Allergies Coded Allergies: Sulfa Antibiotics (Verified Allergy, Intermediate, RASH/PRURITIS, 03/28/16) Omeprazole (Verified Adverse Reaction, Intermediate, interacts w/ clopidigrol, 03/28/16) Chlorpropamide (Verified Adverse Reaction, Mild, N/V, 03/28/16) ARI Inhibitors (Verified Adverse Reaction, Unknown, AVOIDS SECONDARY TO "OTHER MEDICATIONS" PER PT, 03/28/16) Physical Exam Vital Signs Date Time Temp Pulse Resp B/P (MAP) Pulse Ox O2 Delivery O2 Flow Rate FiO2 02/17/17 22:39 70 177/76 02/17/17 22:00 77 20 214/83 97 Nasal Cannula 3.0 02/17/17 21:15 76 20 196/84 97 Nasal Cannula 3.0 02/17/17 21:00 84 22 189/80 95 Nasal Cannula 3.0 02/17/17 20:55 86 24 198/109 95 Nasal Cannula 2.0 02/17/17 20:45 90 02/17/17 20:32 Room Air 02/17/17 20:32 36.9 89 22 202/114 94 Room Air 02/17/17 20:32 Room Air Physical Exam GENERAL: Patient is awake, alert, very anxious and uncomfortable appearing, appears to be in significant pain. EYES: The conjunctivae are clear. The pupils are round and reactive. EARS, NOSE, MOUTH AND THROAT: The nose is without any evidence of any deformity. Mucous membranes are moist tongue is midline NECK: The neck is nontender and supple. RESPIRATORY: Breath sounds diminished throughout with rales at each base, mild tachypnea. CARDIOVASCULAR: Regular rate and rhythm noted there no murmurs rubs or gallops normal S1 normal S2 GASTROINTESTINAL: The abdomen is soft. Bowel sounds are present in all quadrants. Abdomen is nontender MUSCULOSKELETAL/EXTREMITIES: There is no evidence of gross deformity full range of motion is noted in the hips and shoulders SKIN: Pedal edema bilaterally. There is no obvious evidence of any rash. There are no petechiae, pallor or cyanosis noted. NEUROLOGIC: Patient is awake alert and oriented x3 Medical Decision & Procedures ER Provider Diagnostic Interpretation: A repeat ECG reveals a NSR at 80, RBBB noted, improvement of previously noted ST segment depression. Radiology results as stated below per my review and radiologist interpretation: CHEST ONE VIEW PORTABLE HISTORY: 76 years-old Female EVALUATE RESPIRATORY DISTRESS.DYSPNEA acute respiratory distress with atypical chest pain. COMPARISON: Chest radiograph 01/12/2017 TECHNIQUE: Portable erect AP view of the chest. FINDINGS: Cardiac silhouette is mildly enlarged. Prior median sternotomy. There is mild pulmonary vascular congestion with persistent patchy bibasilar opacities. No overt pulmonary edema. The bones are grossly intact. There is fusion hardware of the lower cervical spine. IMPRESSION: 1. Cardiomegaly and pulmonary vascular congestion without overt pulmonary edema. 2. Persistent patchy bibasilar opacities suggest atelectasis with pneumonia thought to be less likely. The above report was generated using voice recognition software. It may contain grammatical, syntax or spelling errors. Electronically signed by: Colby White M.D. 02/17/2017 9:56 PM Dictated Date/Time: 02/17/2017 9:54 PM Laboratory Results Test 02/17/17 20:48 Immature Granulocyte % (Auto) 0.4 % White Blood Count 7.28 K/uL (4.8-10.8) Red Blood Count 3.61 M/uL (4.2-5.4) Hemoglobin 10.6 g/dL (12.0-16.0) Hematocrit 33.0 % (37-47) Mean Corpuscular Volume 91.4 fL (80-100) Mean Corpuscular Hemoglobin 29.4 pg (25-34) Mean Corpuscular Hemoglobin Concent 32.1 g/dl (32-36) Platelet Count 165 K/uL (130-400) Mean Platelet Volume 10.8 fL (7.4-10.4) Neutrophils (%) (Auto) 69.8 % Lymphocytes (%) (Auto) 20.7 % Monocytes (%) (Auto) 7.0 % Eosinophils (%) (Auto) 1.8 % Basophils (%) (Auto) 0.3 % Neutrophils # (Auto) 5.08 K/uL (1.4-6.5) Lymphocytes # (Auto) 1.51 K/uL (1.2-3.4) Monocytes # (Auto) 0.51 K/uL (0.11-0.59) Eosinophils # (Auto) 0.13 K/uL (0-0.5) Basophils # (Auto) 0.02 K/uL (0-0.2) Immature Granulocyte # (Auto) 0.03 K/uL (0.00-0.02) Prothrombin Time 11.6 SECONDS (9.0-12.0) Prothromb Time International Ratio 1.1 (0.9-1.1) Total Bilirubin 0.4 mg/dl (0.2-1) Aspartate Amino Transf (AST/SGOT) 28 U/L (15-37) Alanine Aminotransferase (ALT/SGPT) 33 U/L (12-78) Alkaline Phosphatase 50 U/L (45-117) Pro-B-Type Natriuretic Peptide 3378 pg/ml (0-900) Total Protein 6.7 gm/dl (6.4-8.2) Albumin 3.3 gm/dl (3.4-5.0) Globulin 3.4 gm/dl (2.5-4.0) Albumin/Globulin Ratio 1.0 (0.9-2) Laboratory results per my review. Medications Administered Medications (Trade) Dose Ordered Sig/Nick Route Start Time Stop Time Status Last Admin Dose Admin Aspirin (Aspirin Chew) 324 mg NOW STAT PO 02/17/17 20:30 02/17/17 20:31 DC 02/17/17 20:47 324 MG Nitroglycerin (Nitrostat Tab) 0.4 mg Q5M PRN SL 02/17/17 20:45 02/17/17 23:20 DC 02/17/17 21:03 0.4 MG Morphine Sulfate (MoRPHine SULFATE INJ) 4 mg Q15M PRN IV 02/17/17 20:45 02/17/17 23:20 DC 02/17/17 21:00 4 MG Ondansetron HCl (Zofran Inj) 4 mg NOW STAT IV 02/17/17 20:33 02/17/17 20:35 DC 02/17/17 20:52 4 MG Metoprolol Tartrate (Lopressor Iv) 5 mg ONE STAT IV 02/17/17 22:17 02/17/17 22:19 DC 02/17/17 22:39 5 MG Nitroglycerin (Nitroglycerin 2% Oint) 0.5 inch NOW ONCE EXT 02/17/17 22:30 02/17/17 22:31 DC 02/17/17 22:40 0.5 INCH ECG Indication: chest pain Rate (beats per minute): 95 Rhythm: normal sinus Findings: RBBB, ST depression (Lateral) Comparison ECG Date: 03/28/2016 Change: ST depressions are new. ED Course 2025: The patient was evaluated in room B4B. A complete history and physical examination were performed. 2030: Aspirin 324 mg PO 2032: Zofran 4 mg IV 2044: Morphine sulfate 4 mg IV - PRN, Nitroglycerin 0.4 mg SL - PRN 2208: I reassessed the patient at this time. She is feeling better and resting comfortably. I discussed the results and treatment plan with the patient. I answered all pertaining questions that she had. She expressed understanding and verbalized agreement. 2213: I spoke with Dr. Lock. We discussed the patient's case. The patient will be evaluated by the [facility] for further management. 2216: Lopressor 5 mg IV 0: Nitroglycerin 0.5 inch EXT Medical Decision Differential diagnosis: Etiologies such as cardiac ischemia, aortic dissection, pulmonary embolism, pneumonia, pneumothorax, musculoskeletal, infections, pericarditis, myocarditis , esophageal rupture, gastrointestinal, as well as others were entertained. Medication Reconcilliation Current Medication List: was personally reviewed by me Blood Pressure Screening Patient's blood pressure: Elevated blood pressure Blood pressure disposition: Referred to PCP Consults Time Called: 2211 Consulting Physician: Dr. Lock Returned Call: [address] Lock. We discussed the patient's case. The patient will be evaluated by the [facility] for further management. Impression Primary Impression: Precordial chest pain Additional Impression: Abnormal ECG Scribe Attestation The scribe's documentation has been prepared under my direction and personally reviewed by me in its entirety. I confirm that the note above accurately reflects all work, treatment, procedures, and medical decision making performed by me. Departure Information Dispostion Being Evaluated By Hospitalist Referrals Nicolette Marquez M.D. (PCP) Patient Instructions My [facility] Problem Qualifiers
[2017-02-17] MEDS ORDERED: APR25 PO (21:47)
[2017-02-17] MEDS ORDERED: CINN1CAP2 PO (21:47)
[2017-02-17] MEDS ORDERED: LSX40 PO (21:47)
[2017-02-17] MEDS ORDERED: VNTHFA/IN INH (21:47)
[2017-02-17] MEDS ORDERED: CRG25 PO (21:47)
[2017-02-17] MEDS ORDERED: AMOX500C3 PO (21:47)
--- NOTE | 2017-02-17 21:58 | DIAGNOSTIC IMAGING REPORT ---
CHEST ONE VIEW PORTABLE HISTORY: 76 years-old Female EVALUATE RESPIRATORY DISTRESS.DYSPNEA acute respiratory distress with atypical chest pain. COMPARISON: Chest radiograph 01/12/2017 TECHNIQUE: Portable erect AP view of the chest. FINDINGS: Cardiac silhouette is mildly enlarged. Prior median sternotomy. There is mild pulmonary vascular congestion with persistent patchy bibasilar opacities. No overt pulmonary edema. The bones are grossly intact. There is fusion hardware of the lower cervical spine. IMPRESSION: 1. Cardiomegaly and pulmonary vascular congestion without overt pulmonary edema. 2. Persistent patchy bibasilar opacities suggest atelectasis with pneumonia thought to be less likely. The above report was generated using voice recognition software. It may contain grammatical, syntax or spelling errors. Electronically signed by: Colby White M.D. 02/17/2017 9:56 PM Dictated Date/Time: 02/17/2017 9:54 PM
[2017-02-17] MEDS ORDERED: METOPROLOL TARTRATE 1 MG/ML VIAL IV STA (22:17)
[2017-02-17] MEDS ORDERED: NITROGLYCERIN OINT 2% 1GM PACKET EXT ONE (22:30)
[2017-02-17] MEDS ORDERED: ALBINS/ INH (22:31)
[2017-02-17] MEDS ORDERED: MAGNESIUM HYDROXIDE SUSP 30 ML UDC PO PRN (23:00)
[2017-02-17] MEDS ORDERED: POLYETHYLENE (MIRALAX) 17 GM PACK PO PRN ×2 (23:00)
[2017-02-17] MEDS ORDERED: ALUMINUM/MAGNESIUM/SIMETH (MAALOX MAX) 30 ML UDC PO PRN (23:00)
[2017-02-17] MEDS ORDERED: FLUTICASONE PROPIONATE NA SPR 16 GM BTL NAE PRN (23:00)
[2017-02-17] MEDS ORDERED: NITROGLYCERIN 0.4 MG SL PER TAB CHARGE SL PRN (23:00)
[2017-02-17] MEDS ORDERED: NITROGLYCERIN 0.4 MG SL PER TAB CHARGE UT PRN (23:00)
[2017-02-17] MEDS ORDERED: ONDANSETRON INJ 2 MG/ML 2 ML VIAL IV PRN (23:00)
[2017-02-17] MEDS ORDERED: MoRPHine SULFATE 2 MG/ML CARP IV PRN (23:00)
--- NOTE | 2017-02-17 23:29 | History and Physical ---
History & Physical Date & Time of Service: Feb 17, 2017 at 23:06 Chief Complaint: Sob,Feel Like Being Choked,Chest Pain Primary Care Physician: Nicolette Marquez M.D. History of Present Illness Source: patient (daughter and friend), family The patient is a pleasant 76 year old female with a past medical history of CAD with CABG and stenting x 2, HTN, HLD, Type 2 Diabetes, Asthma, CKD and chronic OA, who presents with precordial chest pain. The patient states that she was out shopping with her friend. She notes that she has short of breath with any exertion for the past 2 weeks, including today when she had to walk in the mall. After they were finished shopping she was going to get in the car, when she felt a central pressure-type pain in the chest , which she rates 8/10. It did radiate the left jaw and both arms. It did not radiate to the back. She was brought to the ED as a result where she got nitro and notes that it helped her with her pain and now she is chest pain free. She denies palpitations, presyncope/syncope, orthopnea, or worsening lower extremity edema. She states her shortness of breath has been progressing for the past 2 weeks and is getting worse. She denies shortness of breath at rest. She has a cough that is occasionally productive. It was green initially but is more yellow now. She notes that she has asthma and her nebulizer has been giving her some relief. She had seen her PCP, who gave her a prescription for Amoxicillin. She has taken 5 days of this but does not feel it has helped. She has had fevers, but no chills or sweats. Her appetite has been slightly reduced. She has chronic constipation which is unchanged and denies abdominal pain, nausea, vomiting or diarrhea. She denies dysuria or urinary frequency. In the ED, initial troponin was negative but there were anterolateral ST depressions noted on her EKG compared to her EKG in 2016. Her x-ray also remarked early congestive findings, in addition to an elevated pro-BNP. As such , decision was made to admit for further cardiac evaluation. Past Medical/Surgical History Medical Problems: (1) Diabetes Status: Chronic (2) Heart disease Status: Chronic (3) Hypertension Status: Chronic HLD Asthma (4) Kidney disease Status: Chronic Surgical Problems: (1) H/O heart bypass surgery Status: Resolved (2) History of heart artery stent Status: Resolved History of bilateral carotid endarterectomy (3) Left femoral psuedoanerysm repair Status: Resolved Cholecystectomy Hysterectomy Family History Diabetes mellitus Gallbladder disease Heart disease Hypertension Kidney disease Kidney stones Social History Smoking Status: Never Smoker Smokeless Tobacco Use: No Alcohol Use: none Drug Use: none Marital Status: Housing status: lives alone Occupational Status: retired Immunizations History of Influenza Vaccine: Yes Influenza Vaccine Date: Mar 01, 2010 History of Tetanus Vaccine?: Yes Tetanus Immunization Date: Jul 02, 1996 History of Pneumococcal: Yes Pneumococcal Date: Jul 02, 2008 History of Hepatitis B Vaccine: Unknown Multi-Drug Resistant Organisms History of MDRO: No Allergies Coded Allergies: Sulfa Antibiotics (Verified Allergy, Intermediate, RASH/PRURITIS, 03/28/16) Omeprazole (Verified Adverse Reaction, Intermediate, interacts w/ clopidigrol, 03/28/16) Chlorpropamide (Verified Adverse Reaction, Mild, N/V, 03/28/16) ARI Inhibitors (Verified Adverse Reaction, Unknown, AVOIDS SECONDARY TO "OTHER MEDICATIONS" PER PT, 03/28/16) Home Medications Scheduled Amitriptyline HCl (Amitriptyline HCl), 30 MG PO HS Amoxicillin (Amoxil), 500 MG PO TID Aspirin (Aspirin Ec), 81 MG PO QAM Atorvastatin (Atorvastatin Calcium), 80 MG PO HS Carvedilol (Carvedilol), 37.5 MG PO BID Clopidogrel Bisulfate (Clopidogrel), 75 MG PO QAM Docusate Sodium (Stool Softener), 100 MG PO HS Furosemide (Furosemide), 20 MG PO DAILY Hydralazine Hcl (Apresoline), 25 MG PO TID Insulin Aspart Protamine & Asp (Novolog Mix 70/30 Prefill), 40 UNITS SC QAM Insulin Aspart Protamine & Asp (Novolog Mix 70/30), 90 UNITS SC QPM Isosorbide Mononitrate Ext Rel (Imdur Ext Rel), 120 MG PO BID Multivitamin (Multivitamin), 1 TAB PO QAM Tramadol (Ultram), 100 MG PO BID Scheduled PRN Albuterol Hfa (Ventolin Hfa), 2 PUFF INH Q6H PRN for Shortness of Breath Albuterol Sulf (Proventil 0.083% 2.5MG/3ML), 2.5 MG INH TID PRN for Shortness of Breath Cinnamon (Cinnamon), 2 CAP PO DAILY PRN for HIGH BP Fluticasone Propionate (Fluticasone Propionate), 2 SPRAYS ZANE DAILY PRN for Allergies Nitroglycerin (Nitrostat), 0.4 MG UT UD PRN for Chest Pain Polyethylene Glycol 3350 (Miralax), 1 PACK PO DAILY PRN for Constipation Review of Systems Constitutional: + chills, No fever, No sweats Eyes: No worsening of vision, No eye pain, No redness, No discharge ENT: No nasal symptoms, No sore throat, No tinnitus, No trouble swallowing Respiratory: + dyspnea on exertion, No dyspnea at rest, No hemoptysis Cardiovascular: No PND, No edema, No claudication, No palpitations Abdomen: No pain, No nausea, No vomiting, No diarrhea, No constipation Musculoskeletal: No joint pain, No muscle pain, No calf pain Genitourinary - Female: No dysuria, No urinary frequency, No urinary urgency Neurologic: No weakness, No numbness/tingling, No vertigo Psychiatric: No depression symptoms, No anxiety, No insomnia Hematologic / Lymphatic: No abnormal bleeding/bruising, No swollen lymph nodes , No night sweats Integumentary: No rash, No new/changing skin lesions, No color change Physical Exam Vital Signs Date Time Temp Pulse Resp B/P (MAP) Pulse Ox O2 Delivery O2 Flow Rate FiO2 02/17/17 22:39 70 177/76 02/17/17 22:00 77 20 214/83 97 Nasal Cannula 3.0 02/17/17 21:15 76 20 196/84 97 Nasal Cannula 3.0 02/17/17 21:00 84 22 189/80 95 Nasal Cannula 3.0 02/17/17 20:55 86 24 198/109 95 Nasal Cannula 2.0 02/17/17 20:45 90 02/17/17 20:32 Room Air 02/17/17 20:32 36.9 89 22 202/114 94 Room Air 02/17/17 20:32 Room Air General Appearance: WD/WN, no apparent distress, + obese Head: normocephalic, atraumatic Eyes: normal inspection, EOMI ENT: hearing grossly normal, pharynx normal Neck: supple, no adenopathy, no JVD, + pertinent finding (bilateral carotid endarterectomy scars) Respiratory/Chest: chest non-tender, lungs clear, no respiratory distress Cardiovascular: regular rate, rhythm, no gallop, no murmur, + pertinent finding (no obvious crackles at the bases) Abdomen/GI: normal bowel sounds, non tender, soft Back: no CVA tenderness, no muscle spasm Extremities/Musculoskelatal: no calf tenderness, + pertinent finding (1 + pitting edema) Neurologic/Psych: alert, normal mood/affect, oriented x 3 Skin: normal color, warm/dry, no rash Lymphatic: no adenopathy Diagnostics Laboratory Results Results Past 24 Hours Test 02/17/17 20:48 02/17/17 23:04 Range/Units White Blood Count 7.28 4.8-10.8 K/uL Red Blood Count 3.61 4.2-5.4 M/uL Hemoglobin 10.6 12.0-16.0 g/dL Hematocrit 33.0 37-47 % Mean Corpuscular Volume 91.4 80-100 fL Mean Corpuscular Hemoglobin 29.4 25-34 pg Mean Corpuscular Hemoglobin Concent 32.1 32-36 g/dl Platelet Count 165 130-400 K/uL Mean Platelet Volume 10.8 7.4-10.4 fL Neutrophils (%) (Auto) 69.8 % Lymphocytes (%) (Auto) 20.7 % Monocytes (%) (Auto) 7.0 % Eosinophils (%) (Auto) 1.8 % Basophils (%) (Auto) 0.3 % Neutrophils # (Auto) 5.08 1.4-6.5 K/uL Lymphocytes # (Auto) 1.51 1.2-3.4 K/uL Monocytes # (Auto) 0.51 0.11-0.59 K/uL Eosinophils # (Auto) 0.13 0-0.5 K/uL Basophils # (Auto) 0.02 0-0.2 K/uL RDW Standard Deviation 49.5 36.4-46.3 fL RDW Coefficient of Variation 14.9 11.5-14.5 % Immature Granulocyte % (Auto) 0.4 % Immature Granulocyte # (Auto) 0.03 0.00-0.02 K/uL Prothrombin Time 11.6 9.0-12.0 SECONDS Prothromb Time International Ratio 1.1 0.9-1.1 Activated Partial Thromboplast Time 25.5 21.0-31.0 SECONDS Partial Thromboplastin Ratio 1.0 Sodium Level 141 136-145 mmol/L Potassium Level 4.2 3.5-5.1 mmol/L Chloride Level 106 98-107 mmol/L Carbon Dioxide Level 27 21-32 mmol/L Anion Gap 8.0 3-11 mmol/L Blood Urea Nitrogen 27 7-18 mg/dl Creatinine 1.60 0.60-1.20 mg/dl Est Creatinine Clear Calc Drug Dose 35.2 ml/min Estimated GFR () 36.2 Estimated GFR (Non- 31.2 BUN/Creatinine Ratio 17.1 10-20 Random Glucose 238 70-99 mg/dl Calcium Level 8.9 8.5-10.1 mg/dl Total Bilirubin 0.4 0.2-1 mg/dl Aspartate Amino Transf (AST/SGOT) 28 15-37 U/L Alanine Aminotransferase (ALT/SGPT) 33 12-78 U/L Alkaline Phosphatase 50 45-117 U/L Total Creatine Kinase 168 26-192 U/L Creatine Kinase MB 3.7 0.5-3.6 ng/ml Creatine Kinase MB Ratio 2.2 0-3.0 Troponin I 0.018 0-0.045 ng/ml Pro-B-Type Natriuretic Peptide 3378 0-900 pg/ml Total Protein 6.7 6.4-8.2 gm/dl Albumin 3.3 3.4-5.0 gm/dl Globulin 3.4 2.5-4.0 gm/dl Albumin/Globulin Ratio 1.0 0.9-2 Diagnostic Radiology CHEST ONE VIEW PORTABLE HISTORY: 76 years-old Female EVALUATE RESPIRATORY DISTRESS.DYSPNEA acute respiratory distress with atypical chest pain. COMPARISON: Chest radiograph 01/12/2017 TECHNIQUE: Portable erect AP view of the chest. FINDINGS: Cardiac silhouette is mildly enlarged. Prior median sternotomy. There is mild pulmonary vascular congestion with persistent patchy bibasilar opacities. No overt pulmonary edema. The bones are grossly intact. There is fusion hardware of the lower cervical spine. IMPRESSION: 1. Cardiomegaly and pulmonary vascular congestion without overt pulmonary edema. 2. Persistent patchy bibasilar opacities suggest atelectasis with pneumonia thought to be less likely. The above report was generated using voice recognition software. It may contain grammatical, syntax or spelling errors. Electronically signed by: Colby White M.D. 02/17/2017 9:56 PM Dictated Date/Time: 02/17/2017 9:54 PM The status of this report is Signed. Draft = Not yet reviewed or approved by Radiologist. Signed = Reviewed and approved by Radiologist. EKG Anterolateral T wave inversions Impression Assessment and Plan 76 year old female with history of known coronary disease and multiple ongoing risk factors including HLD, T2DM, and HTN who presents with acute chest pain. Our plan for her is as follows: Acute Chest Pain on history of known CAD - Admit to telemetry - Initial cardiac enzymes negative; trend q6h - EKG with chest pain and q AM - Nitro patch and nitro SL PRN for chest pain - Consult cardiology recommendations in the setting of previous CABG and stenting - ASA 324 given in the ED; continue ASA 81 mg daily - Continue Plavix - Continue Carvedilol - Contine Atorvastatin - No ACEi as patient reports allergy Possible acute CHF on history of diastolic dysfunction - Most recent echo reviewed from 01/2016: Normal left ventricular size and systolic function. EF 60-65%. No regional wall motion abnormalities. Mild concentric left ventricular hypertrophy. Type 2 diastolic dysfunction. 2. The left atrium is mildly dilated. 3. There is mild mitral regurgitation. 4. Technically difficult study, enhanced with IV Definity. 5. No significant change from prior study on 06/02/2014. - Elevated Pro-BNP with congestive changes on X-ray - Clinical examination not impressive for acute CHF - Will check daily weights and intake/output measurements - Will administer 20 mg IV lasix; continue home lasix dosing and monitor clinically Acute on Chronic Kidney Disease - Baseline Cr 1.2; Cr 1.6 on arrival - Will avoid hydration in the setting of possible CHF - Monitor daily Acute Bronchitis vs CAP with failed outpatient treatment - Patient on Amoxicillin prior to arrival - Chest x-ray unremarkable for obvious consolidation - No WBC though patient has oxygen demand at 3 L NC - Will check procalcitonin for additional evidence of PNA - D/C Amoxicillin; Start Levaquin for empiric coverage Type 2 Diabetes with Hyperglycemia on admission - BSG 238 on arrival - Hold home meds - Insulin SSI - AC/HS checks Hyperlipidemia - Continue Atorvastatin Hypertension - Continue Hydralazine DVT Prophylaxis - SCD Knee, GINA Hose - Heparin 5000 U s.c. TID Code Status - Level V DNR Disposition - Telemetry - OT and PT evaluations Resident Physician Supervision Note: Pt seen/evaluated independently. I discussed the case with the resident and agree with the findings and plan as documented in the note. Any exceptions or clarifications are listed here: 76 y/o F w/Hx diffuse CAD - presenting with CP, exertional SOB - EKG changes and a negative troponin noted on admission - SBP > 180 on arrival AAO x 3 S1,2 R CTAB - no audible crackles / wheezing - had received Lasix NT, ND No CCE P: Pt had apparently been told that she is not a candidate for intervention Placed on telemetry - ASA, statin, Bblocker Pts plug assembler consulted for AM Will provide full dose anticoagulation if subsequent trop elevated Documented By: Reymundo Lock Level of Care Telemetry Resuscitation Status DO NOT RESUSCITATE VTE Prophylaxis VTE Risk Assessment Done? Y/N: Yes Risk Level: Moderate Given or contraindicated: Unfractionated heparin SQ
[2017-02-17] MEDS ORDERED: GLUCAGON FOR INJ 1 MG VIAL SQ PRN (23:30)
[2017-02-17] MEDS ORDERED: DEXTROSE 50% 50 ML SYR IV PRN (23:30)
[2017-02-17] MEDS ORDERED: GLUCOSE 10 TABS/TUBE PO PRN (23:30)
[2017-02-17] MEDS ORDERED: GLUCOSE 40% GEL 15 GM TUBE PO PRN (23:30)
[2017-02-18] VITALS (17 sets, daily range): BP systolic 167–209; BP diastolic 66–94; PULSE 70–90; TEMP 36.4–37.6; O2SAT 84–100; Ht 157.5 cm; Wt 103.9 kg
[2017-02-18] MEDS ORDERED: ISOSORBIDE MONONITRATE 60 MG TABCR PO ONE (01:15)
[2017-02-18] MEDS ORDERED: FUROSEMIDE INJ 20 MG in SYRINGE 0 ML IV ONE (01:15)
[2017-02-18] MEDS ORDERED: CARVEDILOL 25 MG TAB PO ONE (01:15)
[2017-02-18] MEDS: NITROGLYCERIN OINT 2% 1GM PACKET EXT SCH ×5 (01:15→23:44)
[2017-02-18] MEDS ORDERED: INSULIN ASPART 100 UNITS/ML 3 ML PEN SC ONE (01:15)
[2017-02-18 01:23] LABS: URINE APPEARANCE CLEAR (CLEAR); URINE BILIRUBIN NEG (NEG); URINE COLOR YELLOW; URINE EPITHELIAL CELL AUTO >30 /lpf (0-5); URINE NITRITE NEG (NEG); URINE PH 5.5 (4.5-7.5); URINE SPECIFIC GRAVITY 1.019 (1.000-1.030); UROBILINOGEN NEG (NEG)
[2017-02-18 01:26] LABS: MANUAL MICROSCOPIC REQUIRED? NO; REVIEW REQ? NO
[2017-02-18] MEDS ORDERED: LEVOFLOXACIN / D5W 750 MG in PREMIXED IN D5W 150 ML IV SCH (01:30)
[2017-02-18] MEDS ORDERED: LEVOFLOXACIN CONSULT ACTIVE PRN (02:30)
[2017-02-18 05:23] LABS: HEMATOCRIT 32.6 % (37-47); MEAN CELL VOLUME 93.7 fL (80-100); MEAN CORPUSCULAR HEMOGLOBIN 28.4 pg (25-34); MEAN CORPUSCULAR HGB CONC 30.4 g/dl (32-36); MEAN PLATELET VOLUME 10.2 fL (7.4-10.4); PLATELET COUNT 150 K/uL (130-400); RED BLOOD COUNT 3.48 M/uL (4.2-5.4)
[2017-02-18 05:55] LABS: BUN/CREATININE RATIO 23.3 (10-20); CALCIUM 8.2 mg/dl (8.5-10.1); CREATININE 1.3 mg/dl (0.60-1.20); POTASSIUM 4.3 mmol/L (3.5-5.1)
[2017-02-18] MEDS ORDERED: HEPARIN SOD 5000 UNIT/0.5 ML CARP SQ SCH (06:00)
[2017-02-18 06:07] LABS: CKMB/CK RATIO 3.3 (0-3.0)
[2017-02-18] MEDS ORDERED: HEPARIN 25,000 UNIT/500ML D5W 500 ML IV PRN (06:30)
[2017-02-18] MEDS: ALBUT/IPRATROP 3MG/0.5MG NEB 3 ML VIAL INH SCH ×4 (07:20→19:08)
[2017-02-18] MEDS: TRAMADOL HCL 50 MG TAB PO SCH ×2 (08:07→21:42)
[2017-02-18] MEDS: ASPIRIN 81 MG ECTAB PO SCH (08:07)
[2017-02-18] MEDS: MULTIVITAMIN TAB PO SCH (08:08)
[2017-02-18] MEDS: FUROSEMIDE 40 MG TAB PO SCH (08:08)
[2017-02-18] MEDS: CLOPIDOGREL BISULFATE 75 MG TAB PO SCH (08:08)
[2017-02-18] MEDS: ISOSORBIDE MONONITRATE 60 MG TABCR PO SCH ×2 (08:09→19:49)
[2017-02-18] MEDS ORDERED: CARVEDILOL 12.5 MG TAB PO SCH (09:00)
[2017-02-18] MEDS ORDERED: INSULIN GLARGINE SOLOSTAR 100 UNITS/ML 3 ML PEN SC SCH (09:00)
[2017-02-18] MEDS ORDERED: PERFLUTREN LIPID MICROSPHERE (DEFINITY) IV ONE (09:20)
[2017-02-18] MEDS: INSULIN ASPART 100 UNITS/ML 3 ML PEN SC SCH ×4 (09:56→21:00)
--- NOTE | 2017-02-18 11:37 | ECHOCARDIOGRAM REPORT ---
*NOTICE TO RECEIVING DEMOCRAT AGENCY This information is strictly Confidential and protected under [place] law. [place] law prohibits you from making any further disclosure of this information unless further disclosure is expressly permitted by the written consent of the person to whom it pertains or is authorized by law. A general authorization for the release of medical or other information is not sufficient for this purpose. Hospital accepts no responsibility if the information is made available to any other person, INCLUDING THE PATIENT. Interpretation Summary * Name: KENIA BUCIO Study Date: 02/18/2017 08:50 AM BP: 177/74 mmHg * Patient Location: C.2T\S\S238\S\2 HR: 75 * : 1940 (M/d/yyyy) Gender: Female Height: 62 in * Age: 76 yrs Ethnicity: CA Weight: 207 lb * Ordering Physician: Rohith Barlow * Referring Physician: Self, Referred * Performed By: Linda Crum RDCS * * Reason For Study: CHF, CAD * BSA: 1.9 m2 * Normal left ventricular systolic function and wall motion. * Moderate concentric left ventricular hypertrophy. * Class 2 left ventricular diastolic dysfunction. * Moderate left atrial dilatation. * [id number] mitral regurgitation. * Moderate tricuspid regurgitation. * Mildly elevated estimated right ventricular systolic pressure. * Normal estimated central venous pressure. * Compared to an echocardiogram of February 16, 2016 there has been no significant change in the left ventricular function. Tricuspid regurgitation has increased in the interim. The right ventricular size has increased and right ventricular systolic function has decreased in the interim. * -- Conclusions -- * Aortic valve sclerosis mild, without significant aortic valvular stenosis. Procedure Details * A complete two-dimensional transthoracic echocardiogram was performed (2D, M-mode, Doppler and color flow Doppler). * A contrast injection of Definity was performed to improve assessment of LV function. * Contrast was injected into an intravenous site in the left arm. * One vial of Definity ultrasound contrast was diluted in normal saline to a total volume of 10 ml. A total of '2' ml of solution was administered during imaging. * Lot # [id number] of Definity utilized for procedure. * Expiration date MAR 06. * The attending nurse who injected the contrast agent was Chen Delgado RN. Left Ventricle * The left ventricle is normal in size. * There is moderate concentric left ventricular hypertrophy. * Ejection Fraction = 55-60%. * Left ventricular systolic function is normal. * A full diastolic examination was done with clinical findings of Class II diastolic dysfunction. * The left ventricular wall motion is normal. Right Ventricle * The right ventricle is mildly dilated. * The right ventricular systolic function is mildly reduced. * The right ventricular systolic function is reduced as assessed by tricuspid annular plane systolic excursion (TAPSE) (TAPSE <1.6 cm). Atria * The left atrium is moderately dilated. * Right atrial size is normal. Mitral Valve * There is mild mitral annular calcification. * There is no mitral valve stenosis. * There is mild to moderate mitral regurgitation. Tricuspid Valve * Tricuspid leaflets are thickened. * There is no tricuspid stenosis. * There is moderate tricuspid regurgitation. * Right ventricular systolic pressure is elevated at 30-40mmHg. Aortic Valve * The aortic valve is trileaflet. * The aortic valve opens well. * Aortic valve sclerosis mild, without significant aortic valvular stenosis. * No hemodynamically significant valvular aortic stenosis. * No aortic regurgitation is present. Pulmonic Valve * The pulmonic valve is not well visualized. * The pulmonary valve is inadequately visualized, but the Doppler data is adequate for interpretation. * There is no pulmonic valvular stenosis. * There is no significant pulmonary regurgitation. Great Vessels * The aortic root is normal size. Pericardium/Pleural * There is no pericardial effusion. Great Vessels * Normal inferior vena cava diameter and respiratory variation suggests normal central venous pressure. MMode 2D Measurements and Calculations IVSd 1.6 cm LVIDd 4.5 cm LVIDs 3.1 cm LVPWd 1.6 cm IVS/LVPW 1.0 FS 30.3 % EDV(Teich) 90.5 ml ESV(Teich) 38.2 ml EF(Teich) 57.8 % EDV(cubed) 88.7 ml ESV(cubed) 30.1 ml EF(cubed) 66.1 % LV mass(C)d 293.3 grams LV mass(C)dI 151.2 grams/m\S\2 CO(Teich) 3.9 l/min CI(Teich) 2.0 l/min/m\S\2 SV(Teich) 52.3 ml SI(Teich) 27.0 ml/m\S\2 CO(cubed) 4.4 l/min CI(cubed) 2.3 l/min/m\S\2 SV(cubed) 58.6 ml SI(cubed) 30.2 ml/m\S\2 Ao root diam 2.5 cm Ao root area 4.8 cm\S\2 ACS 1.6 cm LA dimension 4.9 cm asc Aorta Diam 3.1 cm LA/Ao 2.0 LVAd ap4 40.5 cm\S\2 LVLd ap4 8.8 cm EDV(MOD-sp4) 152.0 ml LVAs ap4 23.8 cm\S\2 LVLs ap4 7.8 cm ESV(MOD-sp4) 59.5 ml EF(MOD-sp4) 60.9 % LVAd ap2 35.3 cm\S\2 LVLd ap2 8.5 cm EDV(MOD-sp2) 120.0 ml LVAs ap2 20.3 cm\S\2 LVLs ap2 7.2 cm ESV(MOD-sp2) 47.9 ml EF(MOD-sp2) 60.1 % CO(MOD-sp4) 6.9 l/min CI(MOD-sp4) 3.6 l/min/m\S\2 SV(MOD-sp4) 92.5 ml SI(MOD-sp4) 47.7 ml/m\S\2 CO(MOD-sp2) 5.4 l/min CI(MOD-sp2) 2.8 l/min/m\S\2 SV(MOD-sp2) 72.1 ml SI(MOD-sp2) 37.2 ml/m\S\2 Doppler Measurements and Calculations MV E max mina 148.9 cm/sec MV A max mina 98.0 cm/sec MV E/A 1.5 MV dec time 0.17 sec Ao V2 max 148.0 cm/sec Ao max PG 8.8 mmHg Ao max PG (full) 5.3 mmHg LV V1 max PG 3.4 mmHg LV V1 max 92.6 cm/sec PA V2 max 88.2 cm/sec PA max PG 3.1 mmHg PA acc slope 745.8 cm/sec\S\2 PA acc time 0.10 sec PI end-d mina 142.5 cm/sec TR max mina 260.6 cm/sec PA pr(Accel) 33.1 mmHg
[2017-02-18 13:01] LABS: PARTIAL THROMBOPLASTIN RATIO 1.6
--- NOTE | 2017-02-18 13:22 | CARDIOLOGY CONSULTATION ---
DATE OF CONSULTATION: 02/18/2017 PRIMARY PHYSICIAN: Nicolette Marquez M.D. ATTENDING AND REFERRING PHYSICIAN: Fabien Crawford D.O. CONSULTATION: Rohith Barlow M.D. HISTORY OF PRESENT ILLNESS: The patient is a 76-year-old white female with a longstanding history of coronary artery disease. Status post 3-vessel CABG 1999 at [facility]. Left intramammary artery, LAD, saphenous vein to RCA, radial artery graft from aorta to left circumflex. Cardiac catheterization in 2001 with occlusion of the radial and venous grafts. The left internal mammary artery graft was patent. Non-ST elevation myocardial infarction in 07/02/2010. Cardiac catheterization in [facility] with severe distal left main and ostial left circumflex marginal stenosis. Successful intervention to the left main and left circumflex stenoses with deployment of 3 x 18 mm drug-eluting stent. Post-dilated with a 3.25 mm noncompliant balloon. Total mid LAD occlusion. Mild to moderate atherosclerotic disease of the RCA. Patent left internal mammary artery graft to mid LAD. She also has a history of vascular disease. Status post bilateral iliac artery stents June 2010. Status post left SFA balloon angioplasty. Complicated by pseudoaneurysm formation in the left common femoral artery. Prior lower extremity arterial duplex scans have shown moderate stenosis in the right proximal SFA, severe stenosis in the right mid SFA, total proximal left SFA occlusion. She has cerebrovascular disease. Status post bilateral carotid endarterectomies. Status post right SFA MECH[employer]ICAL TEST ENGINEER 01/19/2015. Status post left SFA MECHANICAL TEST ENGINEER 07/13/2015. Lexiscan in 2016 revealed evidence of ischemia in the proximal and distal anterior wall, mid to distal anterolateral wall, apex, in the proximal distal inferior and inferolateral iqbal. These findings were felt to be consistent with her known coronary anatomy pathology. Medical therapy recommended. She has a history of diabetes mellitus, hypertension, and dyslipidemia. Also, history of chronic kidney disease. She is followed by Dr. Ludin Andrade for this. The patient states that since late December 2016, she has had a cough, increased dyspnea on exertion, and wheezing. She was treated for an upper respiratory infection with antibiotics therapy by her primary care provider. Her sputum has been yellow to green in color. She has not noted any recent worsening of orthopnea. She sleeps with 2 pillows. When she does get up to go to the bathroom at night, she does have dyspnea. This is frequently associated with wheezing. No definite fevers. She does have sensation of chills. She has been compliant with her medications and a low sodium diet. She does not weigh herself. She has had chronic and stable lower extremity edema. Yesterday afternoon after prolonged walking, the patient experienced dyspnea with a sensation of chest tightness. She had associated wheezing. The chest tightness radiating into her shoulders and arms. She came to the Emergency Department for evaluation. She says her subtotal nitroglycerin did help alleviate her symptoms. She was admitted to the telemetry unit. Since admission to the telemetry unit, she denies any further episodes of chest discomfort. She still has a sensation of dyspnea. She still complains of wheezing. In the Emergency Department, blood pressures of 202/114 and 198/109 were recorded. On arrival to telemetry unit, her blood pressure was 200/75 and then 209/94. Her pulse rates have been as high as 90 beats per minute. Her oxygen saturation via pulse oximetry has generally been in the low to mid 90s. There is one oxygen saturation for this morning of 84%. The patient has been treated with intravenous antibiotics, nebulizer, and topical nitrates. She has also started on intravenous heparin. The patient has been maintained on her carvedilol, hydralazine, and isosorbide mononitrate. It appears she also been maintained on her atorvastatin, aspirin, and clopidogrel. PAST MEDICAL HISTORY: 1. Coronary artery disease as above. 2. Cerebrovascular disease as above. 3. Peripheral vascular disease as above. 4. Echocardiogram in 2016 with normal LV size and systolic function. No regional wall motion abnormalities. Type 2 diastolic dysfunction. Mild LVH. Mild mitral regurgitation. 5. History of cellulitis. 6. History of chronic cystitis. 7. Chronic kidney disease. 8. Type 2 diabetes mellitus. 9. Hypertension. 10. Dyslipidemia. 11. Diabetic peripheral neuropathy. 12. GE reflux disease. 13. History of hypercalcemia and hyperkalemia. 14. Morbid obesity. 15. History of nephrolithiasis. 16. Osteoarthritis. 17. Proteinuria. 18. History of renal artery stenosis. 19. History of secondary hyperparathyroidism. 20. Vitamin D deficiency. 21. Asthma. PAST SURGICAL HISTORY: 1. Status post CABG surgery. 2. Status post back surgery. 3. Status post cataract surgery. 4. Status post cholecystectomy. 5. Status post median nerve neuroplasty decompression. 6. 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 7. Status post tonsillectomy. 8. Status post MARJ-BSO. SOCIAL HISTORY: The patient lives alone. She has never smoked cigarettes. She is a . She does not drink alcohol. MEDICATIONS: This morning were amitriptyline 30 mg at bedtime, atorvastatin 80 mg at bedtime, docusate sodium 100 mg at bedtime, carvedilol 37.5 mg b.i.d., hydralazine 25 mg t.i.d., aspirin 81 mg daily, clopidogrel 75 mg daily, furosemide 20 mg daily, isosorbide mononitrate 120 mg b.i.d., multivitamin 1 tab daily, intravenous heparin by weight base protocol, tramadol 100 mg b.i.d., Lantus insulin 10 units subQ b.i.d., DuoNeb 3 mL q.i.d., NovoLog sliding scale insulin, levofloxacin 750 mg IV q. 48 hours, nitroglycerin ointment 1 inch q. 6 hours, and several p.r.n. medications. ALLERGIES AND ADVERSE DRUG REACTIONS: SULFA DRUGS, ARI INHIBITORS, WHICH CAUSED HYPERKALEMIA; BACTRIM, OMEPRAZOLE, CHLORPROPAMIDE. REVIEW OF SYSTEMS: 1. As above. 2. No bleeding complaints. 3. No current urinary complaints. 4. No abdominal pain or nausea. No current GI complaints. 5. No focal motor weakness. 6. Chronic pain in her lower legs. 7. No skin rash complaints. 8. Dry mouth. PHYSICAL EXAMINATION: GENERAL: The patient was evaluated by me this morning at approximately 8:00 a.m. She is lying in bed. No distress. VITAL SIGNS: At 3:59 a.m. had revealed oral temperature is 36.9, pulse 74, pulse oximetry 95, blood pressure 172/76. HEAD: Normal. EYES: Pupils equal and round. Anicteric. Conjunctivae normal. MOUTH: Dry mucous membranes. NECK: No jugular venous distention. Bilateral carotid endarterectomy scars. Carotid pulses 2/2 bilaterally. Normal upstroke. No bruits heard. LUNGS: Normal respiratory effort. Decreased breath sounds at both bases. Expiratory wheezes in the mid and upper lung bagley. No rales. HEART: PMI not palpable. No lifts or heaves. Distant heart sounds. Regular rate and rhythm. No murmur, S3, or rub. ABDOMEN: Obese. Soft. Nontender. No palpable masses or organomegaly. No bruits. Normal bowel sounds. EXTREMITIES: No cyanosis or clubbing. No calf tenderness. Trace to 1+ pretibial edema bilaterally. PULSES: Radial pulses palpable bilaterally. Dorsalis pedis and posterior tibial pulses are weakly palpable. PSYCHIATRIC: Affect is normal. NEUROLOGIC: The patient is alert and oriented. She can move all extremities. DATA: Chest x-ray reviewed by me. Images appears to be underpenetrated. Pulmonary vascular congestion. Probable bibasilar atelectasis. LABORATORY DATA: At 5:14 a.m. this morning with WBC 5.80, hemoglobin 9.9, hematocrit 32.6, platelet count 150. PT last night 11.6 with INR of 1.1. PTT was 25.5. Metabolic profile this morning with sodium 143, potassium 4.3, chloride 107, carbon dioxide 28, BUN 30, creatinine 1.30, estimated creatinine clearance 39.9, random glucose 199. Troponin I's have been 0.018 and 0.872. CK totals have been 168 and 138 with respective MBs of 3.7 and 4.6. Serum albumin 3.3. Pro-B natriuretic peptide last the evening 3378. Procalcitonin was less than 0.05. AST 28, ALT 33, and total bilirubin 0.4. Electrocardiogram at 20:30, February 17 revealed sinus rhythm, right bundle branch block, left anterior fascicular block, anterolateral ST depressions suggestive of ischemia. Electrocardiogram at 21:08 on February 17 with normal sinus rhythm, left intrafascicular block, left axis deviation, nonspecific anterolateral ST abnormalities. Electrocardiogram this morning with normal sinus rhythm, normal QRS axis, right bundle branch block, T-wave inversions in V2-V6 consistent with ischemia. Shallow T inversions in leads II, III, and aVF. ASSESSMENT: 1. Longstanding history of diffuse coronary artery disease. Status post 3-vessel coronary artery bypass grafting surgery 1999. Occlusion of 2 autografts. She does have a patent left internal mammary graft to the left anterior descending artery on prior cardiac catheterization. Status post left main, left circumflex stent. 2. Most recent Lexiscan pharmacologic test performed in 2016 (February 16) revealed evidence of ischemia in the left anterior descending artery and right coronary artery territories. It was felt that the ischemia was consistent with her known coronary artery and bypass graft disease. 3. Echocardiogram last January with normal left ventricular systolic function, mild left ventricular hypertrophy, left ventricular diastolic dysfunction. 4. Admission with complaints of dyspnea, chest tightness, and wheezing. She certainly has a component of bronchospasm. She has had upper respiratory infection symptoms for the past month. She has had wheezing. The wheezing and dyspnea improved with nebulizer treatment administered in the hospital. She still has a significant expiratory wheezing on exam today. 5. Chest tightness. This could be a symptom from her bronchospasm. However, cannot exclude this is secondary to myocardial ischemia. She had a marked increase in myocardial oxygen demand yesterday. She had markedly elevated systolic blood pressures. She also had a markedly elevated diastolic pressure on arrival to the Emergency Department. This hypertension in the presence of her coronary artery disease and left ventricular hypertrophy would certainly predispose her to myocardial ischemia. She had a mild increase in her troponin I thus far. Suspect that the troponin I elevation is secondary to demand ischemia. Based on her history, do not suspect an acute coronary syndrome such as an acute coronary thrombus or ulcerative plaque. She is on chronic dual antiplatelet therapy with aspirin and clopidogrel. 6. Cannot exclude a component of acute left ventricular diastolic heart failure. She does have evidence of diastolic dysfunction on prior echocardiogram. The hypertension and myocardial ischemia could worsen her diastolic dysfunction. Her ProBNP was elevated. However, on exam she does not appear to be volume overloaded. 7. Severe hypertension. 8. Chronic kidney disease. 9. Adverse reactions to ARI inhibitors, manifested by hyperkalemia. This would contraindicate the use of an angiotensin receptor pamela also. 10. Diffuse vascular disease. She has cerebrovascular disease and peripheral vascular disease. 11. Her diabetes mellitus, chronic kidney disease, and diffuse vascular disease would increase the risk of any invasive cardiac procedures such as cardiac catheterization and percutaneous coronary intervention. 12. As the patient's troponin I was likely secondary to demand ischemia and that she has room with her blood pressure and heart rate for an increase in her medications, would recommend medical management of her underlying coronary artery disease at this time. It is felt at this time her risk from an invasive procedure would outweigh the benefits. 13. Dyslipidemia. Currently being treated with maximum dose of atorvastatin. 14. Chronic anemia. Hemoglobin now similar to that in 2016. No symptoms of bleeding. 15. Adequate platelet count. She is on dual antiplatelet therapy. RECOMMENDATIONS: 1. Increase hydralazine to 50 mg t.i.d. 2. Increase carvedilol to 50 mg b.i.d. 3. Continue isosorbide mononitrate, aspirin, clopidogrel, and maximum dose of atorvastatin. 4. Echocardiogram today to reassess left ventricular function and wall motion. 5. Continue nebulizer therapy for her bronchospasm. She is currently on intravenous antibiotics. If her bronchospasm does not resolve with current medications, may need to consider steroid therapy. 6. As stated above, at this time, I would not recommend a cardiac catheterization. If she develops clearly unstable anginal symptoms or evidence of an ST elevation myocardial infarction, then cardiac catheterization would be indicated. The risk of an invasive procedure at this time outweighs the benefits. This was thoroughly discussed with the patient by me. The risk and benefits of an invasive cardiac procedure were extensively discussed with her by me. At this time, she concurs with the decision to pursue conservative medical management of her underlying coronary artery disease. Thank you for asking me to see this patient in cardiology consultation.
[2017-02-18] MEDS ORDERED: HEPARIN IV BOLUS 3,000 UNIT in SYRINGE 0 ML IV ONE (13:45)
[2017-02-18] MEDS: ACETAMINOPHEN 325 MG TAB PO PRN (17:58)
--- NOTE | 2017-02-18 18:01 | Family Medicine Progress Note ---
Progress Note Date of Service Feb 18, 2017. Subjective Pt evaluation today including: conversation w/ patient, physical exam, chart review, lab review, review of inpatient medication list Pain: No pain reported PO Intake: Tolerating PO intake Voiding: no voiding problems Ryan Sosa reports that her chest pain is much better today, but that she is still experiencing a cough productive of phlegm. She also notes she is short of breath upon walking but not at rest. She denies PND, orthopnea, syncopal episodes, nausea, vomiting. Constitutional: No fever, No chills, No sweats Respiratory: + cough, + sputum, + dyspnea on exertion, No hemoptysis Cardiovascular: No chest pain, No orthopnea, No PND, No edema, No claudication, No palpitations Abdomen: No pain, No nausea, No vomiting, No diarrhea, No constipation All Other Systems: Reviewed and Negative Medications Current Inpatient Medications Medications (Trade) Dose Ordered Sig/Nick Route Start Time Stop Time Status Last Admin Dose Admin Heparin Sodium (Porcine) (Heparin Sq 5000 Unit/0.5ml) 5,000 unit Q8 SQ 02/18/17 06:00 03/20/17 05:59 Future Hold 02/18/17 05:38 5,000 UNIT Acetaminophen (Tylenol Tab) 650 mg Q4H PRN PO 02/17/17 23:00 03/19/17 22:59 Al Hydrox/Mg Hydrox/Simethicone (Maalox Max Susp) 15 ml Q4H PRN PO 02/17/17 23:00 03/19/17 22:59 Magnesium Hydroxide (Milk Of Magnesia Susp) 30 ml Q12H PRN PO 02/17/17 23:00 03/19/17 22:59 Ondansetron HCl (Zofran Inj) 4 mg Q6H PRN IV 02/17/17 23:00 03/19/17 22:59 Nitroglycerin (Nitrostat Tab) 0.4 mg UD PRN SL 02/17/17 23:00 03/19/17 22:59 Nitroglycerin (Nitroglycerin 2% Oint) 1 inch Q6 EXT 02/18/17 01:15 03/20/17 01:14 02/18/17 13:02 1 INCH Morphine Sulfate (MoRPHine SULFATE INJ) 2 mg Q30M PRN IV 02/17/17 23:00 03/03/17 22:59 Polyethylene (Miralax Powder Packet) 17 gm DAILY PRN PO 02/17/17 23:00 03/19/17 22:59 Amitriptyline HCl (Elavil Tab) 30 mg HS PO 02/18/17 21:00 03/20/17 20:59 Aspirin (Ecotrin Tab) 81 mg QAM PO 02/18/17 09:00 03/20/17 08:59 02/18/17 08:07 81 MG Atorvastatin Calcium (Lipitor Tab) 80 mg HS PO 02/18/17 21:00 03/20/17 20:59 Clopidogrel Bisulfate (plAVix TAB) 75 mg QAM PO 02/18/17 09:00 03/20/17 08:59 02/18/17 08:08 75 MG Docusate Sodium (coLACE CAP) 100 mg HS PO 02/18/17 21:00 03/20/17 20:59 Fluticasone Propionate (Flonase Nasal [place]) 2 sprays DAILY PRN ZANE 02/17/17 23:00 03/19/17 22:59 Furosemide (Lasix Tab) 20 mg DAILY PO 02/18/17 09:00 03/20/17 08:59 02/18/17 08:08 20 MG Isosorbide Mononitrate (Imdur Ext Rel Tab) 120 mg BID PO 02/18/17 09:00 03/20/17 08:59 02/18/17 08:09 120 MG Multivitamins (Multivitamin Tab) 1 tab QAM PO 02/18/17 09:00 03/20/17 08:59 02/18/17 08:08 1 TAB Tramadol HCl (Ultram Tab) 100 mg BID PO 02/18/17 09:00 03/20/17 08:59 02/18/17 08:07 100 MG Insulin Aspart (novoLOG ASPART) SLIDING SCALE G... ACHS SC 02/18/17 07:00 03/20/17 06:59 02/18/17 13:04 13 UNITS Albuterol/ Ipratropium (Duoneb) 3 ml QIDR INH 02/18/17 08:00 03/20/17 07:59 02/18/17 15:44 3 ML Glucose (Glucose 40% Gel) 15-30 GRAMS 15 GRAMS... UD PRN PO 02/17/17 23:30 03/19/17 23:29 Glucose (Glucose Chew Tab) 4-8 Tablets 4 Tabl... UD PRN PO 02/17/17 23:30 03/19/17 23:29 Dextrose (Dextrose 50% 50ML Syringe) 25-50ML OF 50% DW IV FOR... UD PRN IV 02/17/17 23:30 03/19/17 23:29 Glucagon (Glucagon Inj) 1 mg UD PRN SQ 02/17/17 23:30 03/19/17 23:29 Levofloxacin (Consult) 1 ea UD PRN N/A 02/18/17 02:30 03/20/17 02:29 Heparin Sodium/ Dextrose 500 ml @ 27 mls/hr [id number] PRN IV 02/18/17 06:30 03/20/17 06:29 02/18/17 06:40 24 MLS/HR Insulin Glargine (Lantus Solostar Pen) 10 units BID SC 02/18/17 09:00 03/20/17 08:59 02/18/17 09:57 10 UNITS Carvedilol (Coreg Tab) 50 mg BID PO 02/18/17 21:00 03/20/17 08:59 Hydralazine HCl (Apresoline Tab) 50 mg TID PO 02/18/17 14:00 03/20/17 08:59 02/18/17 13:02 50 MG Levofloxacin (Levaquin Tab) 750 mg Q2D@1100 PO 02/20/17 11:00 02/25/17 10:59 Objective Vital Signs Date Time Temp Pulse Resp B/P (MAP) Pulse Ox O2 Delivery O2 Flow Rate FiO2 02/18/17 16:26 36.8 78 18 167/74 (105) 95 Room Air 02/18/17 15:44 78 16 95 Nasal Cannula 3.0 02/18/17 12:00 Nasal Cannula 2.0 02/18/17 11:59 36.4 72 18 172/76 (108) 100 Nasal Cannula 02/18/17 11:37 72 16 93 Nasal Cannula 3.0 02/18/17 11:30 87 Room Air 02/18/17 08:22 93 Nasal Cannula 3.0 02/18/17 08:17 84 Room Air 02/18/17 08:15 36.4 73 18 177/74 (108) Nasal Cannula 02/18/17 07:20 70 16 93 Nasal Cannula 1.0 02/18/17 04:00 94 Nasal Cannula 2.0 02/18/17 03:59 36.9 74 18 172/76 (108) 95 Nasal Cannula 1.0 02/18/17 00:54 36.8 80 18 209/94 (132) 94 Nasal Cannula 02/18/17 00:51 75 18 200/75 (116) 94 Nasal Cannula 2.0 02/18/17 00:15 36.8 90 18 209/94 90 Room Air 02/17/17 23:23 79 20 180/73 96 Nasal Cannula 2.0 02/17/17 22:39 70 177/76 02/17/17 22:00 77 20 214/83 97 Nasal Cannula 3.0 02/17/17 21:15 76 20 196/84 97 Nasal Cannula 3.0 02/17/17 21:00 84 22 189/80 95 Nasal Cannula 3.0 02/17/17 20:55 86 24 198/109 95 Nasal Cannula 2.0 02/17/17 20:45 90 02/17/17 20:32 Room Air 02/17/17 20:32 36.9 89 22 202/114 94 Room Air 02/17/17 20:32 Room Air Physical Exam General Appearance: WD/WN, no apparent distress Respiratory/Chest: chest non-tender, no respiratory distress, no accessory muscle use, + pertinent finding (expiratory wheezes throughout lungs - disappeared after nebulizer treatment) Cardiovascular: regular rate, rhythm, no edema, no gallop, no JVD, no murmur Abdomen: normal bowel sounds, non tender, soft, no organomegaly, no pulsatile mass Laboratory Results Last 24 Hours Test 02/17/17 20:48 02/17/17 23:32 02/18/17 00:45 02/18/17 01:57 White Blood Count 7.28 K/uL Red Blood Count 3.61 M/uL Hemoglobin 10.6 g/dL Hematocrit 33.0 % Mean Corpuscular Volume 91.4 fL Mean Corpuscular Hemoglobin 29.4 pg Mean Corpuscular Hemoglobin Concent 32.1 g/dl Platelet Count 165 K/uL Mean Platelet Volume 10.8 fL Neutrophils (%) (Auto) 69.8 % Lymphocytes (%) (Auto) 20.7 % Monocytes (%) (Auto) 7.0 % Eosinophils (%) (Auto) 1.8 % Basophils (%) (Auto) 0.3 % Neutrophils # (Auto) 5.08 K/uL Lymphocytes # (Auto) 1.51 K/uL Monocytes # (Auto) 0.51 K/uL Eosinophils # (Auto) 0.13 K/uL Basophils # (Auto) 0.02 K/uL RDW Standard Deviation 49.5 fL RDW Coefficient of Variation 14.9 % Immature Granulocyte % (Auto) 0.4 % Immature Granulocyte # (Auto) 0.03 K/uL Prothrombin Time 11.6 SECONDS Prothromb Time International Ratio 1.1 Activated Partial Thromboplast Time 25.5 SECONDS Partial Thromboplastin Ratio 1.0 Sodium Level 141 mmol/L Potassium Level 4.2 mmol/L Chloride Level 106 mmol/L Carbon Dioxide Level 27 mmol/L Anion Gap 8.0 mmol/L Blood Urea Nitrogen 27 mg/dl Creatinine 1.60 mg/dl Est Creatinine Clear Calc Drug Dose 35.2 ml/min Estimated GFR () 36.2 Estimated GFR (Non- 31.2 BUN/Creatinine Ratio 17.1 Random Glucose 238 mg/dl Calcium Level 8.9 mg/dl Total Bilirubin 0.4 mg/dl Aspartate Amino Transf (AST/SGOT) 28 U/L Alanine Aminotransferase (ALT/SGPT) 33 U/L Alkaline Phosphatase 50 U/L Total Creatine Kinase 168 U/L Creatine Kinase MB 3.7 ng/ml Creatine Kinase MB Ratio 2.2 Troponin I 0.018 ng/ml Pro-B-Type Natriuretic Peptide 3378 pg/ml Total Protein 6.7 gm/dl Albumin 3.3 gm/dl Globulin 3.4 gm/dl Albumin/Globulin Ratio 1.0 Procalcitonin < 0.05 ng/ml Urine Color YELLOW Urine Appearance CLEAR Urine pH 5.5 Urine Specific Metter 1.019 Urine Protein 3+ Urine Glucose (UA) NEG Urine Ketones NEG Urine Occult Blood NEG Urine Nitrite NEG Urine Bilirubin NEG Urine Urobilinogen NEG Urine Leukocyte Esterase SMALL Urine WBC (Auto) >30 /hpf Urine RBC (Auto) 0-4 /hpf Urine Hyaline Casts (Auto) 1-5 /lpf Urine Epithelial Cells (Auto) >30 /lpf Urine Bacteria (Auto) NEG Bedside Glucose 230 mg/dl Test 02/18/17 05:14 02/18/17 06:49 02/18/17 10:43 02/18/17 11:18 White Blood Count 5.80 K/uL Red Blood Count 3.48 M/uL Hemoglobin 9.9 g/dL Hematocrit 32.6 % Mean Corpuscular Volume 93.7 fL Mean Corpuscular Hemoglobin 28.4 pg Mean Corpuscular Hemoglobin Concent 30.4 g/dl RDW Standard Deviation 51.6 fL RDW Coefficient of Variation 15.1 % Platelet Count 150 K/uL Mean Platelet Volume 10.2 fL Sodium Level 143 mmol/L Potassium Level 4.3 mmol/L Chloride Level 107 mmol/L Carbon Dioxide Level 28 mmol/L Anion Gap 8.0 mmol/L Blood Urea Nitrogen 30 mg/dl Creatinine 1.30 mg/dl Est Creatinine Clear Calc Drug Dose 39.9 ml/min Estimated GFR () 46.5 Estimated GFR (Non- 40.1 BUN/Creatinine Ratio 23.3 Random Glucose 199 mg/dl Calcium Level 8.2 mg/dl Total Creatine Kinase 138 U/L 112 U/L Creatine Kinase MB 4.6 ng/ml 3.4 ng/ml Creatine Kinase MB Ratio 3.3 3.0 Troponin I 0.872 ng/ml 0.860 ng/ml Bedside Glucose 187 mg/dl 246 mg/dl Estimated Average Glucose 154 mg/dl Hemoglobin A1c 7.0 % Test 02/18/17 12:39 02/18/17 17:06 Activated Partial Thromboplast Time 41.2 SECONDS Partial Thromboplastin Ratio 1.6 Assessment and Plan 76 year old female with history of known coronary disease and multiple ongoing risk factors including HLD, T2DM, and HTN who presents with acute chest pain on a background of 2 weeks of progressive shortness of breath on exertion and cough Acute Chest Pain on history of known CAD - Thank you to Dr. Barlow for cardiology input - likely due to supply/demand mismatch in the setting of an acute respiratory illness & hypertension - troponins slightly elevated at 0.872 and 0.86 - chest pain resolved - ASA 324 given in the ED; continue ASA 81 mg daily - Continue Plavix - Continue Atorvastatin - No ACEi as patient reports allergy Hypertension - uncontrolled with home dose of carvedilol 37.5mg BID and hydralazine 25mg TID - increased to carvedilol 50mg BID and hydralazine 50mg TID Possible acute CHF on history of diastolic dysfunction - Most recent echo reviewed from 01/2016: Normal left ventricular size and systolic function. EF 60-65%. No regional wall motion abnormalities. Mild concentric left ventricular hypertrophy. Type 2 diastolic dysfunction. 2. The left atrium is mildly dilated. 3. There is mild mitral regurgitation. 4. Technically difficult study, enhanced with IV Definity. 5. No significant change from prior study on 06/02/2014. - Elevated Pro-BNP with congestive changes on X-ray - Clinical examination does not demonstrate fluid overload - ECHO today to reassess - Will check daily weights and intake/output measurements - Continue home lasix dosing (20 mg PO) and monitor clinically Acute on Chronic Kidney Disease - Creatinine dropped from 1.6 to 1.3 (baseline is 1.2) - resolving - Will avoid excessive hydration in the setting of possible CHF - Monitor daily Acute Bronchitis vs atypical pneumonia with failed outpatient treatment - Patient on Amoxicillin prior to arrival - was discontinued and levaquin started - Chest x-ray shows possible right sided consolidation - continue nebs - procalcitonin negative Type 2 Diabetes with Hyperglycemia on admission - BSG 238 on arrival, continuing to run high - Hold home meds - Insulin SSI and lantus increased from 10 to 30 units BID - AC/HS checks Hyperlipidemia - Continue Atorvastatin DVT Prophylaxis - SCD Knee, GINA Hose - Heparin drip Code Status - Level V DNR Disposition - remains on telemetry Resident Physician Supervision Note: I interviewed and examined the patient. Discussed with Dr. Moreira and agree with findings and plan as documented in the note. Any exceptions or clarifications are listed here: None Documented By: Fabien Crawford feeling better breathing better. cardiology input appreciated vitals noted nad breathing unlabored no wheezing (i saw her at the end of getting a neb) no pallor or icterus chest tightness - bronchopneumonia > acute on chronic CHF w elements of both -treatment as above - improving elevated troponin -demand ischemia due to above creating supply-demand mismatch in the setting of known severe CAD DVT proph - heparin SQ (was on heparin gtt until clear situation w troponin) Resident Tracking Resident Involvement: Resident Care Provided Care Provided: Adult Hospital Medicine
[2017-02-18] MEDS: CARVEDILOL 25 MG TAB PO SCH (19:47)
[2017-02-18] MEDS: AMITRIPTYLINE HCL 10 MG TAB PO SCH (19:48)
[2017-02-18] MEDS: DOCUSATE SODIUM 100 MG CAP PO SCH (19:49)
[2017-02-18] MEDS: ATORVASTATIN 40 MG TAB PO SCH (19:49)
[2017-02-18] MEDS: INSULIN GLARGINE SOLOSTAR 100 UNITS/ML 3 ML PEN SC SCH (21:40)
[2017-02-18] MEDS: HEPARIN SOD 5000 UNIT/0.5 ML CARP SQ SCH (21:41)
[2017-02-18] MEDS ORDERED: LABETALOL HCL IV 5 MG/ML 20ML IV PRN (23:45)
[2017-02-19] VITALS (14 sets, daily range): BP systolic 149–200; BP diastolic 62–85; PULSE 61–82; TEMP 36.6–37.7; O2SAT 92–96
[2017-02-19] MEDS: NITROGLYCERIN OINT 2% 1GM PACKET EXT SCH ×4 (06:32→23:36)
[2017-02-19] MEDS: ALBUT/IPRATROP 3MG/0.5MG NEB 3 ML VIAL INH SCH ×4 (06:50→19:33)
[2017-02-19 07:12] LABS: HEMATOCRIT 31.7 % (37-47); MEAN CELL VOLUME 94.6 fL (80-100); MEAN CORPUSCULAR HEMOGLOBIN 27.8 pg (25-34); MEAN CORPUSCULAR HGB CONC 29.3 g/dl (32-36); MEAN PLATELET VOLUME 10.8 fL (7.4-10.4); PLATELET COUNT 159 K/uL (130-400); RED BLOOD COUNT 3.35 M/uL (4.2-5.4); WHITE BLOOD COUNT 6.97 K/uL (4.8-10.8)
[2017-02-19 07:39] LABS: BUN/CREATININE RATIO 22.6 (10-20); CALCIUM 8.5 mg/dl (8.5-10.1); CREATININE 1.4 mg/dl (0.60-1.20); POTASSIUM 4.3 mmol/L (3.5-5.1)
[2017-02-19] MEDS: ISOSORBIDE MONONITRATE 60 MG TABCR PO SCH ×2 (07:53→21:02)
[2017-02-19] MEDS: MULTIVITAMIN TAB PO SCH (07:53)
[2017-02-19] MEDS: CLOPIDOGREL BISULFATE 75 MG TAB PO SCH (07:54)
[2017-02-19] MEDS: FUROSEMIDE 40 MG TAB PO SCH (07:54)
[2017-02-19] MEDS: CARVEDILOL 25 MG TAB PO SCH ×2 (07:55→21:01)
[2017-02-19] MEDS: ASPIRIN 81 MG ECTAB PO SCH (07:55)
[2017-02-19] MEDS: TRAMADOL HCL 50 MG TAB PO SCH ×2 (07:57→20:47)
[2017-02-19] MEDS: INSULIN ASPART 100 UNITS/ML 3 ML PEN SC SCH ×4 (07:59→20:51)
[2017-02-19] MEDS: HEPARIN SOD 5000 UNIT/0.5 ML CARP SQ SCH ×2 (08:00→21:00)
[2017-02-19] MEDS: INSULIN GLARGINE SOLOSTAR 100 UNITS/ML 3 ML PEN SC SCH ×2 (08:00→21:00)
--- NOTE | 2017-02-19 09:10 | Family Medicine Progress Note ---
Progress Note Date of Service Feb 19, 2017. Subjective Pt evaluation today including: conversation w/ patient, physical exam, chart review, lab review, review of inpatient medication list Pain: No pain reported PO Intake: Tolerating PO intake Voiding: no voiding problems Ms. Sosa reports that she feels better today. She is not short of breath at rest, but reports that when she gets up to go to the washroom, she experiences some shortness of breath. She has been coughing less frequently, and her cough is nonproductive. She is eating and drinking well, denies any abdominal pain, nausea or vomiting. Medications Current Inpatient Medications Medications (Trade) Dose Ordered Sig/Nick Route Start Time Stop Time Status Last Admin Dose Admin Heparin Sodium (Porcine) (Heparin Sq 5000 Unit/0.5ml) 5,000 unit Q8 SQ 02/18/17 06:00 03/20/17 05:59 Future Hold 02/18/17 05:38 5,000 UNIT Acetaminophen (Tylenol Tab) 650 mg Q4H PRN PO 02/17/17 23:00 03/19/17 22:59 02/18/17 17:58 650 MG Al Hydrox/Mg Hydrox/Simethicone (Maalox Max Susp) 15 ml Q4H PRN PO 02/17/17 23:00 03/19/17 22:59 Magnesium Hydroxide (Milk Of Magnesia Susp) 30 ml Q12H PRN PO 02/17/17 23:00 03/19/17 22:59 Ondansetron HCl (Zofran Inj) 4 mg Q6H PRN IV 02/17/17 23:00 03/19/17 22:59 Nitroglycerin (Nitrostat Tab) 0.4 mg UD PRN SL 02/17/17 23:00 03/19/17 22:59 Nitroglycerin (Nitroglycerin 2% Oint) 1 inch Q6 EXT 02/18/17 01:15 03/20/17 01:14 02/19/17 06:32 1 INCH Morphine Sulfate (MoRPHine SULFATE INJ) 2 mg Q30M PRN IV 02/17/17 23:00 03/03/17 22:59 Polyethylene (Miralax Powder Packet) 17 gm DAILY PRN PO 02/17/17 23:00 03/19/17 22:59 Amitriptyline HCl (Elavil Tab) 30 mg HS PO 02/18/17 21:00 03/20/17 20:59 02/18/17 19:48 30 MG Aspirin (Ecotrin Tab) 81 mg QAM PO 02/18/17 09:00 03/20/17 08:59 02/19/17 07:55 81 MG Atorvastatin Calcium (Lipitor Tab) 80 mg HS PO 02/18/17 21:00 03/20/17 20:59 02/18/17 19:49 80 MG Clopidogrel Bisulfate (plAVix TAB) 75 mg QAM PO 02/18/17 09:00 03/20/17 08:59 02/19/17 07:54 75 MG Docusate Sodium (coLACE CAP) 100 mg HS PO 02/18/17 21:00 03/20/17 20:59 02/18/17 19:49 100 MG Fluticasone Propionate (Flonase Nasal [place]) 2 sprays DAILY PRN ZANE 02/17/17 23:00 03/19/17 22:59 Furosemide (Lasix Tab) 20 mg DAILY PO 02/18/17 09:00 03/20/17 08:59 02/19/17 07:54 20 MG Isosorbide Mononitrate (Imdur Ext Rel Tab) 120 mg BID PO 02/18/17 09:00 03/20/17 08:59 02/19/17 07:53 120 MG Multivitamins (Multivitamin Tab) 1 tab QAM PO 02/18/17 09:00 03/20/17 08:59 02/19/17 07:53 1 TAB Tramadol HCl (Ultram Tab) 100 mg BID PO 02/18/17 09:00 03/20/17 08:59 02/19/17 07:57 100 MG Insulin Aspart (novoLOG ASPART) SLIDING SCALE G... ACHS SC 02/18/17 07:00 03/20/17 06:59 02/19/17 07:59 8 UNITS Albuterol/ Ipratropium (Duoneb) 3 ml QIDR INH 02/18/17 08:00 03/20/17 07:59 02/19/17 11:11 3 ML Glucose (Glucose 40% Gel) 15-30 GRAMS 15 GRAMS... UD PRN PO 02/17/17 23:30 03/19/17 23:29 Glucose (Glucose Chew Tab) 4-8 Tablets 4 Tabl... UD PRN PO 02/17/17 23:30 03/19/17 23:29 Dextrose (Dextrose 50% 50ML Syringe) 25-50ML OF 50% DW IV FOR... UD PRN IV 02/17/17 23:30 03/19/17 23:29 Glucagon (Glucagon Inj) 1 mg UD PRN SQ 02/17/17 23:30 03/19/17 23:29 Levofloxacin (Consult) 1 ea UD PRN N/A 02/18/17 02:30 03/20/17 02:29 Carvedilol (Coreg Tab) 50 mg BID PO 02/18/17 21:00 03/20/17 08:59 02/19/17 07:55 50 MG Hydralazine HCl (Apresoline Tab) 50 mg TID PO 02/18/17 14:00 03/20/17 08:59 02/19/17 07:55 50 MG Levofloxacin (Levaquin Tab) 750 mg Q2D@1100 PO 02/20/17 11:00 02/25/17 10:59 Insulin Glargine (Lantus Solostar Pen) 30 units BID SC 02/18/17 21:00 03/20/17 08:59 02/19/17 08:00 30 UNITS Heparin Sodium (Porcine) (Heparin Sq 5000 Unit/0.5ml) 5,000 unit Q12 SQ 02/18/17 21:00 03/20/17 20:59 02/19/17 08:00 5,000 UNIT Labetalol HCl (Normodyne IV) 10 mg Q4H PRN IV 02/18/17 23:45 03/20/17 23:44 02/19/17 00:04 10 MG Amlodipine Besylate (Norvasc Tab) 2.5 mg QAM PO 02/20/17 08:00 03/22/17 08:59 Objective Vital Signs Date Time Temp Pulse Resp B/P (MAP) Pulse Ox O2 Delivery O2 Flow Rate FiO2 02/19/17 07:22 75 16 96 Nasal Cannula 2.0 02/19/17 04:05 37.7 77 20 179/65 (103) 94 Nasal Cannula 2.0 02/19/17 04:00 Nasal Cannula 2.0 02/19/17 00:43 Nasal Cannula 2.0 02/19/17 00:42 71 183/66 (105) 02/18/17 23:32 37.6 71 20 184/66 (105) 98 Nasal Cannula 2.0 02/18/17 20:00 Nasal Cannula 2.0 02/18/17 19:56 36.5 71 18 199/84 (122) 96 Nasal Cannula 2.0 02/18/17 19:09 73 16 94 Nasal Cannula 2.0 02/18/17 16:26 36.8 78 18 167/74 (105) 95 Room Air 02/18/17 15:44 78 16 95 Nasal Cannula 3.0 02/18/17 12:00 Nasal Cannula 2.0 02/18/17 11:59 36.4 72 18 172/76 (108) 100 Nasal Cannula 02/18/17 11:37 72 16 93 Nasal Cannula 3.0 02/18/17 11:30 87 Room Air 02/18/17 08:22 93 Nasal Cannula 3.0 02/18/17 08:17 84 Room Air 02/18/17 08:15 36.4 73 18 177/74 (108) Nasal Cannula Physical Exam General Appearance: WD/WN, no apparent distress Respiratory/Chest: chest non-tender, lungs clear, normal breath sounds, no respiratory distress, no accessory muscle use Cardiovascular: regular rate, rhythm, no edema, no gallop, no JVD, no murmur Abdomen: normal bowel sounds, non tender, soft, no organomegaly, no pulsatile mass Extremities: no pedal edema, no calf tenderness Laboratory Results Last 24 Hours Test 02/18/17 12:39 02/18/17 16:12 02/18/17 17:06 02/18/17 21:24 Activated Partial Thromboplast Time 41.2 SECONDS Partial Thromboplastin Ratio 1.6 Bedside Glucose 168 mg/dl 97 mg/dl Troponin I 0.695 ng/ml Test 02/18/17 22:26 02/19/17 06:35 02/19/17 06:49 02/19/17 11:13 Troponin I 0.453 ng/ml White Blood Count 6.97 K/uL Red Blood Count 3.35 M/uL Hemoglobin 9.3 g/dL Hematocrit 31.7 % Mean Corpuscular Volume 94.6 fL Mean Corpuscular Hemoglobin 27.8 pg Mean Corpuscular Hemoglobin Concent 29.3 g/dl RDW Standard Deviation 52.3 fL RDW Coefficient of Variation 15.1 % Platelet Count 159 K/uL Mean Platelet Volume 10.8 fL Sodium Level 141 mmol/L Potassium Level 4.3 mmol/L Chloride Level 107 mmol/L Carbon Dioxide Level 29 mmol/L Anion Gap 5.0 mmol/L Blood Urea Nitrogen 32 mg/dl Creatinine 1.40 mg/dl Est Creatinine Clear Calc Drug Dose 39.1 ml/min Estimated GFR () 42.5 Estimated GFR (Non- 36.7 BUN/Creatinine Ratio 22.6 Random Glucose 170 mg/dl Calcium Level 8.5 mg/dl Bedside Glucose 170 mg/dl 183 mg/dl Assessment and Plan 76 year old female with history of known coronary disease and multiple ongoing risk factors including HLD, T2DM, and HTN who presents with acute chest pain on a background of 2 weeks of progressive shortness of breath on exertion and cough CAD s/p CABG and stenting x2 - Thank you to Dr. Barlow for cardiology input - her previous chest pain was likely due to supply/demand mismatch in the setting of an acute respiratory illness & hypertension - chest pain resolved - continue ASA, Plavix and Atorvastatin - No ACEi as patient reports allergy Hypertension - uncontrolled with home dose of carvedilol 37.5mg BID and hydralazine 25mg TID - increased to carvedilol 50mg BID and hydralazine 50mg TID - continue nitrate 120mg BID - given 10mg labetalol last night as systolic >160 - added 2.5mg of amlodipine given BP still not well controlled with other 3 agents Possible acute CHF on history of diastolic dysfunction - ECHO yesterday - * Normal left ventricular systolic function and wall motion. * Moderate concentric left ventricular hypertrophy. * Class 2 left ventricular diastolic dysfunction. * [id number] mitral regurgitation. * Moderate tricuspid regurgitation. * Compared to an echocardiogram of February 16, 2016 there has been no significant change in the left ventricular function. - Elevated Pro-BNP with congestive changes on X-ray - Clinical examination does not demonstrate fluid overload - Will check daily weights and intake/output measurements - Continue home lasix dosing (20 mg PO) and monitor clinically Acute on Chronic Kidney Disease - Creatinine 1.4 (baseline is 1.2) - resolving - Will avoid excessive hydration in the setting of possible CHF - Monitor daily Acute Bronchitis vs atypical pneumonia with failed outpatient treatment - Continue levaquin q48h per renal dosing - Chest x-ray shows possible right sided consolidation - continue nebs - procalcitonin negative - increase activity to up and out of bed, walking around - hopefully decrease oxygen tomorrow & potential d/c tomorrow - if she can't tolerate the decrease in oxygen, may need to be discharged on short term oxygen therapy Type 2 Diabetes with Hyperglycemia on admission - BSG 238 on arrival, well controlled now - Hold home meds - Insulin SSI and lantus 30 units BID - AC/HS checks Hyperlipidemia - Continue Atorvastatin DVT Prophylaxis - SCD Knee, GINA Hose - 5,000 units heparin SQ Q12H Code Status - Level V DNR Disposition - step down to med/surg Resident Physician Supervision Note: I interviewed and examined the patient. Discussed with Dr. Moreira and agree with findings and plan as documented in the note. Any exceptions or clarifications are listed here: None Documented By: Fabien Crawford feeling better breathing better still needing O2 doesn't normally vitals noted nad breathing unlabored no pallor or icterus lungs clear demand ischemia due to pneumonia and acute on chronic diastolic CHF- all improving. continue current care, increase activity and wean O2. hopefully home tomorrow Resident Tracking Resident Involvement: Resident Care Provided Care Provided: Adult Hospital Medicine
--- NOTE | 2017-02-19 09:33 | Clinical Documentation Query ---
CLINICAL DOCUMENTATION QUERY QUERY 1 OF 3 A 76 year old female who presents to the Emergency Room with complaints of constant chest pain for the past hour. She reports shortness of breath and states that it feels like she is being choked. Her symptoms are worsened with exertion. Her chest pain radiates into her upper back. In your clinical opinion is this patient being managed for: ( ) Acute on chronic diastolic CHF ( ) Not Agree ( ) Other explanation of clinical findings (Please Explain) ( ) Unable to determine (Please Define) ( ) Need to Discuss The medical record reflects the following clinical findings, treatment, and risk factors. Clinical Indicators: Elevated Pro-BNP 3378, echo on02/17/17 EF = 55-60% and documented mild dilation of left atrium and class II diastolic dysfunction, SOB with exertion, cough Treatment: Daily wts, I&O, monitor, home lasix Risk Factors: Age, HTN, obesity CKD, Type II DM QUERY 2 OF 3 In your clinical opinion is this patient being managed for: ( ) Acute kidney failure, resolving ( ) Not Agree ( ) Other explanation of clinical findings (Please Explain) ( ) Unable to determine (Please Define) ( ) Need to Discuss The medical record reflects the following clinical findings, treatment, and risk factors. Clinical Indicators: Creatinine 1.60 (baseline 1.20), Treatment: I&O, telemetry, fluid monitoring, serial PRPs Risk Factors: CKD, HTN, obesity, age QUERY 3 OF 3 In your clinical opinion is this patient being managed for: ( ) Chronic kidney disease, stage 3 ( ) Not Agree ( ) Other explanation of clinical findings (Please Explain) ( ) Unable to determine (Please Define) ( ) Need to Discuss The medical record reflects the following clinical findings, treatment, and risk factors. Clinical Indicators: GFR ranges 31.2, 36.7, 40.1 Treatment: Telemetry, I&O, IV monitoring, serial PRPs Risk Factors: CKD, HTN, CAD, obesity, age Please clarify and document your clinical opinion in the progress notes and discharge summary. Terms such as "probable", "suspected", "likely", "questionable", "possible", or "still to be ruled out" are acceptable. IF IN AGREEMENT, YOU MUST DOCUMENT ABOVE DIAGNOSTIC STATEMENT IN DAILY PROGRESS NOTES AND DISCHARGE SUMMARY. This document is not part of the patient's record. Thank You, Jennifer Bennett RN [phone]
[2017-02-19] MEDS ORDERED: AMLODIPINE BESYLATE 5 MG TAB PO ONE (10:45)
[2017-02-19] MEDS ORDERED: HydrALAZINE HCL 20 MG/ML VIAL IV. PRN (18:45)
[2017-02-19] MEDS: AMITRIPTYLINE HCL 10 MG TAB PO SCH (20:46)
[2017-02-19] MEDS: ATORVASTATIN 40 MG TAB PO SCH (20:47)
[2017-02-19] MEDS: DOCUSATE SODIUM 100 MG CAP PO SCH (20:47)
[2017-02-19] MEDS: ACETAMINOPHEN 325 MG TAB PO PRN (21:07)
[2017-02-20] VITALS (8 sets, daily range): BP systolic 130–178; BP diastolic 62–69; PULSE 64–76; TEMP 36.6; O2SAT 92–96
[2017-02-20] MEDS: ALBUT/IPRATROP 3MG/0.5MG NEB 3 ML VIAL INH SCH ×3 (01:44→11:34)
[2017-02-20] MEDS ORDERED: SODIUM CHLORIDE 0.65% NA SOLN 45 ML (OCEAN) ONE (01:59)
[2017-02-20] MEDS ORDERED: NURSING DECISION MEDICATION ORDER SCH (02:00)
[2017-02-20] MEDS ORDERED: SODIUM CHLORIDE 0.65% NA SOLN 45 ML (OCEAN) PRN (02:15)
[2017-02-20] MEDS: NITROGLYCERIN OINT 2% 1GM PACKET EXT SCH (05:17)
[2017-02-20 06:07] LABS: HEMATOCRIT 30.1 % (37-47); MEAN CELL VOLUME 91.2 fL (80-100); MEAN CORPUSCULAR HEMOGLOBIN 29.1 pg (25-34); MEAN CORPUSCULAR HGB CONC 31.9 g/dl (32-36); MEAN PLATELET VOLUME 10.9 fL (7.4-10.4); PLATELET COUNT 154 K/uL (130-400); WHITE BLOOD COUNT 5.72 K/uL (4.8-10.8)
[2017-02-20 06:47] LABS: BUN/CREATININE RATIO 25.1 (10-20); CALCIUM 8.9 mg/dl (8.5-10.1); CREATININE 1.3 mg/dl (0.60-1.20); POTASSIUM 3.5 mmol/L (3.5-5.1)
[2017-02-20] MEDS: TRAMADOL HCL 50 MG TAB PO SCH (08:00)
[2017-02-20] MEDS ORDERED: AMLODIPINE BESYLATE 5 MG TAB PO SCH (08:00)
[2017-02-20] MEDS: FUROSEMIDE 40 MG TAB PO SCH (08:07)
[2017-02-20] MEDS: CARVEDILOL 25 MG TAB PO SCH (08:08)
[2017-02-20] MEDS: ISOSORBIDE MONONITRATE 60 MG TABCR PO SCH (08:09)
[2017-02-20] MEDS: CLOPIDOGREL BISULFATE 75 MG TAB PO SCH (08:10)
[2017-02-20] MEDS: ASPIRIN 81 MG ECTAB PO SCH (08:10)
[2017-02-20] MEDS: MULTIVITAMIN TAB PO SCH (08:10)
[2017-02-20] MEDS: HEPARIN SOD 5000 UNIT/0.5 ML CARP SQ SCH (08:13)
[2017-02-20] MEDS: INSULIN ASPART 100 UNITS/ML 3 ML PEN SC SCH (09:08)
[2017-02-20] MEDS ORDERED: INSULIN GLARGINE SOLOSTAR 100 UNITS/ML 3 ML PEN SC SCH (09:30)
[2017-02-20] MEDS ORDERED: APR50 PO (10:33)
[2017-02-20] MEDS ORDERED: LVQ750 PO (10:33)
[2017-02-20] MEDS ORDERED: CRG25 PO (10:33)
[2017-02-20] MEDS ORDERED: NRV5 PO (10:33)
--- NOTE | 2017-02-20 10:46 | Discharge Instructions ---
Discharge Instructions Date of Service Feb 20, 2017. Admission Reason for Admission: Precordial Chest Pain Discharge Discharge Diagnosis / Problem: Pneumonia Discharge Goals Goal(s): Decrease discomfort Activity Recommendations Activity Limitations: resume your previous activity . Instructions / Follow-Up Instructions / Follow-Up You were admitted to [facility] due to chest pain, difficulty breathing and a cough. Below are the medical problems that were addressed during your visit: 1) Pneumonia - there was evidence of pneumonia on your chest xray, and this was causing your trouble breathing and cough. We treated you with an antibiotic called Levaquin. You have one more dose left to take of this antibiotic on February 21 (tomorrow). After that, your antibiotic regimen will be finished 2) Chest pain - you had a small rise in your troponin levels, which measures damage to your heart. This was not a heart attack, but rather a strain on your heart because of your pneumonia. Your chest xray also showed that you were slightly overloaded with fluid, and this was treated with Lasix. 3) High blood pressure - your blood pressure was high while you were in the hospital, despite your usual home medications to lower it. We adjusted your medication regimen, and added in a small dose of a new medication to help achieve better control. Over the next few days, as you begin to get better, please take note of any fatigue, light headedness, or dizziness, particularly when going from lying down to standing. This might be a sign that your blood pressure levels are on the lower side, and your primary care physician can make adjustments. Please take all your other home medications as prescribed, and follow up with your primary care physician to ensure that your symptoms are resolving. Current Hospital Diet Patient's current hospital diet: AHA Diet (Heart Healthy), Diabetes Type 2 Diet Discharge Diet Recommended Diet: AHA Diet (Heart Healthy), Diabetes Type 2 Diet Pending Studies Studies pending at discharge: no Laboratory Results Hemoglobin A1c Test 02/18/17 10:43 Range/Units Estimated Average Glucose 154 mg/dl Hemoglobin A1c 7.0 H 4.5-5.6 % Medical Emergencies . Who to Call and When: Medical Emergencies: If at any time you feel your situation is an emergency, please call 911 immediately. . Non-Emergent Contact Non-Emergency issues call your: Primary Care Provider . . "Provider Documentation" section prepared by Krupa Moreira. . VTE Core Measure Inpt VTE Proph given/why not?: Unfractionated heparin SQ
[2017-02-20] MEDS ORDERED: LEVOFLOXACIN 750 MG TAB PO SCH (11:00)
--- NOTE | 2017-02-20 18:36 | Discharge Summary ---
Discharge Summary Date of Service Feb 20, 2017. (Krupa Moreira M.D.) Discharge Summary Admission Date: Feb 17, 2017 at 22:49 Discharge Date: Feb 20, 2017 Discharge Disposition: Home Principal Diagnosis: Pneumonia Immunizations: Have You Had Influenza Vaccine: Yes Influenza Vaccine Date: Mar 01, 2010 History of Tetanus Vaccine?: Yes Tetanus Immunization Date: Jul 02, 1996 History of Pneumococcal: Yes Pneumococcal Date: Jul 02, 2008 History of Hepatitis B Vaccine: Unknown (Krupa Moreira M.D.) Medication Reconciliation New Medications: Amlodipine Besylate (Amlodipine Besylate) 5 Mg Tab 2.5 MG PO QAM for 30 Days, #15 TAB Hydralazine HCl (Hydralazine HCl) 50 Mg Tab 50 MG PO TID for 30 Days, #90 TAB Levofloxacin (Levofloxacin) 750 Mg Tab 750 MG PO Q2D@1100 for 2 Days, #1 TAB Take ONE TABLET on 02/22/17 Changed Medications: Carvedilol (Carvedilol) 25 Mg Tab 50 MG PO BID for 30 Days, #60 TAB (Changed from: 37.5 MG) Continued Medications: Albuterol Hfa (Ventolin Hfa) 200 Puffs/76801 Mcg Aers 2 PUFF INH Q6H PRN for Shortness of Breath, #1 INHALER Albuterol Sulf (Proventil 0.083% 2.5MG/3ML) 2.5 Mg/3 Ml Nebu 2.5 MG INH TID PRN for Shortness of Breath, EA Amitriptyline HCl (Amitriptyline HCl) 10 Mg Tab 30 MG PO HS Aspirin (Aspirin Ec) 81 Mg Tab 81 MG PO QAM Atorvastatin (Atorvastatin Calcium) 40 Mg Tab 80 MG PO HS Cinnamon (Cinnamon) 500 Mg Cap 2 CAP PO DAILY PRN for HIGH BP Clopidogrel Bisulfate (Clopidogrel) 75 Mg Tab 75 MG PO QAM Docusate Sodium (Stool Softener) 100 Mg Cap 100 MG PO HS Fluticasone Propionate (Fluticasone Propionate) 120 Sprays/6000 Mcg Inha 2 SPRAYS ZANE DAILY PRN for Allergies Furosemide (Furosemide) 40 Mg Tab 20 MG PO DAILY Insulin Aspart Protamine & Asp (Novolog Mix 70/30 Prefill) 1 Inj Inj 40 UNITS SC QAM, #45 Insulin Aspart Protamine & Asp (Novolog Mix 70/30) 1 Inj Inj 90 UNITS SC QPM, BTL Isosorbide Mononitrate Ext Rel (Imdur Ext Rel) 120 Mg Ertab 120 MG PO BID, #60 Multivitamin (Multivitamin) Tab 1 TAB PO QAM, 0 Refills Nitroglycerin (Nitrostat) 0.4 Mg Tab 0.4 MG UT UD PRN for Chest Pain Polyethylene Glycol 3350 (Miralax) 1 Pow Pow 1 PACK PO DAILY PRN for Constipation Tramadol (Ultram) 50 Mg Tab 100 MG PO BID, TAB Discontinued Medications: Amoxicillin (Amoxil) 500 Mg Cap 500 MG PO TID Hydralazine Hcl (Apresoline) 25 Mg Tab 25 MG PO TID Discharge Exam Ms. Sosa appears well today. She states that her breathing is much improved, despite being off of the oxygen. She has been coughing a bit, but is less short of breath than yesterday. She denies chest pain, nausea, and vomiting. Review of Systems: Constitutional: No fever, No chills, No sweats Respiratory: + cough, No sputum, No wheezing, No shortness of breath Cardiovascular: No chest pain, No orthopnea, No PND Abdomen: No pain, No nausea, No vomiting Physical Exam: General Appearance: WD/WN, no apparent distress Respiratory/Chest: chest non-tender, lungs clear, normal breath sounds, no respiratory distress, no accessory muscle use Cardiovascular: regular rate, rhythm, no edema, no gallop, no JVD, no murmur Abdomen / GI: normal bowel sounds, non tender, soft, no organomegaly, no pulsatile mass (Krupa Moreira M.D.) Hospital Course Ms. Sosa was admitted to [facility] due to chest pain, difficulty breathing and a cough.Her symptoms were likely due to a combination of fluid overload and pneumonia. Pneumonia was treated with levaquin and she was dicharged with one more dose to take on Feb.21. Her troponins were found to be elevated on admission and this was likely due to supply/demand ischemia in the setting of her pneumonia. Her chest xray showed congestive changes and she was treated with Lasix. While she was in the hospital, her blood pressure was elevated despite her usual home medications. We increased her carvedilol and hydralazine and added in amlodipine to help achieve better control. She was counselled on following up with her PCP regarding these medication changes and reporting any fatigue, light headedness, or dizziness. Total Time Spent: Less than 30 minutes This includes examination of the patient, discharge planning, medication reconciliation, and communication with other providers. (Krupa Moreira M.D.) Resident Physician Supervision Note: I interviewed and examined the patient. Discussed with Dr. Moreira and agree with findings and plan as documented in the note. Any exceptions or clarifications are listed here: None Documented By: Fabien Crawford feeling better wants to go home. no new issues. vitals noted breathing unlabored no pallor or icterus demand ischemia from bronchopneumonia and acute on chronic diastolic CHF - improved acute hypoxia from above improved ELEAZAR on CKD3 - improved stable for home (Fabien Crawford, D.Yan.) Discharge Instructions Please refer to the electronic Patient Visit Report (Discharge Instructions) for additional information. (Krupa Moreira M.D.) Additional Copies To Nicolette Marquez M.D.
== END 2017-02-20 13:50 | disposition home or self-care (01) | DRG 291 ==
LOC: C.EDB 20:23 → C.2T 22:49 → ENRESERV 22:58 → C.MS4W 02-19 11:31
PROVIDERS: ADMIT Student in an Organized Health Care Education/Training Program; ATTEND Family Medicine
DX: I13.0 Hypertensive heart and chronic kidney disease with heart failure and stage 1 through stage 4 chronic kidney disease, or unspecified chronic kidney disease (principal); J18.0 Bronchopneumonia, unspecified organism; I50.33 Acute on chronic diastolic (congestive) heart failure; I25.810 Atherosclerosis of coronary artery bypass graft(s) without angina pectoris; I24.8 Other forms of acute ischemic heart disease; N17.9 Acute kidney failure, unspecified; E11.40 Type 2 diabetes mellitus with diabetic neuropathy, unspecified; N18.3 Chronic kidney disease, stage 3 (moderate); Z95.1 Presence of aortocoronary bypass graft; I25.82 Chronic total occlusion of coronary artery; I67.9 Cerebrovascular disease, unspecified; I73.9 Peripheral vascular disease, unspecified; K21.9 Gastro-esophageal reflux disease without esophagitis; E66.01 Morbid (severe) obesity due to excess calories; E55.9 Vitamin D deficiency, unspecified; Z95.5 Presence of coronary angioplasty implant and graft

== ENCOUNTER → 2017-03-07 | Outpatient (CLI) | payer OTHER ==
[~2017-03-07] MED LIST changes: +ALBINS/ INH; +ASPI81TA28 PO; -CARV25TA2 PO; +CRG25 PO; +DOCU100C PO; +FLNIN/ NAE; +LPT40 PO; -LSX20 PO; +LSX40 PO; +LVQ750 PO; +NRV5 PO; +NTRGSL/4 UT; +PLV75 PO; +VNTHFA/IN INH
[2017-03-07 12:30] LABS: HEMATOCRIT 30.5 % (37-47); MEAN CELL VOLUME 91.9 fL (80-100); MEAN CORPUSCULAR HEMOGLOBIN 30.1 pg (25-34); MEAN CORPUSCULAR HGB CONC 32.8 g/dl (32-36); MEAN PLATELET VOLUME 11.1 fL (7.4-10.4); PLATELET COUNT 157 K/uL (130-400); RED BLOOD COUNT 3.32 M/uL (4.2-5.4); WHITE BLOOD COUNT 6.17 K/uL (4.8-10.8)
[2017-03-07 12:32] LABS: URINE APPEARANCE CLEAR (CLEAR); URINE BILIRUBIN NEG (NEG); URINE COLOR YELLOW; URINE NITRITE NEG (NEG); URINE PH 6.5 (4.5-7.5); URINE SPECIFIC GRAVITY 1.013 (1.000-1.030); UROBILINOGEN NEG (NEG)
[2017-03-07 12:36] LABS: MANUAL MICROSCOPIC REQUIRED? NO; REVIEW REQ? NO
[2017-03-07 12:59] LABS: BLOOD UREA NITROGEN 28 mg/dl (7-18); BUN/CREATININE RATIO 24.4 (10-20); CALCIUM 8.7 mg/dl (8.5-10.1); CARBON DIOXIDE 28 mmol/L (21-32); CHLORIDE 106 mmol/L (98-107); CREATININE 1.15 mg/dl (0.60-1.20); GLUCOSE 114 mg/dl (70-99); PHOSPHORUS 3.8 mg/dl (2.5-4.9); POTASSIUM 4.3 mmol/L (3.5-5.1); SODIUM 140 mmol/L (136-145)
[2017-03-07 13:05] LABS: CREATININE, URINE 41.3 mg/dl; URINE PROTIEN/CREAT RATIO 2.3 (0-0.2)
== END | disposition home or self-care (01) ==
LOC: C.LABBFT 09:16
PROVIDERS: ATTEND Internal Medicine Nephrology
DX: I12.9 Hypertensive chronic kidney disease with stage 1 through stage 4 chronic kidney disease, or unspecified chronic kidney disease (principal); N18.3 Chronic kidney disease, stage 3 (moderate); R80.9 Proteinuria, unspecified; E55.9 Vitamin D deficiency, unspecified; D64.9 Anemia, unspecified; N25.81 Secondary hyperparathyroidism of renal origin

== ENCOUNTER 2017-04-20 19:38 | Emergency (ER) | payer OTHER ==
[~2017-04-20] VITALS: Ht 162.6 cm; Wt 100.0 kg
[2017-04-20] MEDS ORDERED: SODIUM CHLORIDE 0.9% 500ML 500 ML IV STA (19:44)
[2017-04-20 19:59] VITALS: TEMP 36.9; Ht 162.6 cm; Wt 100.0 kg
--- NOTE | 2017-04-20 20:04 | EMERGENCY ROOM VISIT NOTE ---
History Report prepared by Linda: Jayson Le Under the Supervision of: Dr. Clinton Herzog M.D. First contact with patient: 19:39 Stated Complaint: LOW SUGAR History of Present Illness The patient is a 76 year old female who presents to the Emergency Room with complaints of an episode of low blood sugar occurring today. The patient states that she felt like her blood sugar was low because she was abnormally sleepy today. She notes that she did not have dinner tonight but had lunch. She reports that she lives alone and is unsure how EMS was called, but states that she felt like she was dreaming. Per EMS, the grandson found the patient this evening, and called EMS. The patient also complains of diaphoresis. As per EMS initial blood sugar was in the 30's--this improved after IV D10. The patient had a small amount of food and also drank a soda on the way to the ER. Source of History: patient Onset: today Position: other (global) Quality: other (low blood sugar) Timing: other (an epsiode) Associated Symptoms: + diaphoresis Note: She also complains of diaphoresis Review of Systems See HPI for pertinent positives & negatives. A total of 10 systems reviewed and were otherwise negative. Past Medical & Surgical Medical Problems: (1) Cellulitis of face (2) Chest pain (3) Chronic diastolic (congestive) heart failure (4) Diabetes (5) Heart disease (6) Hypertension (7) Kidney disease (8) Parotitis not due to mumps Surgical Problems: (1) H/O heart bypass surgery (2) History of heart artery stent (3) Left femoral psuedoanerysm repair Family History Diabetes mellitus Gallbladder disease Heart disease Hypertension Kidney disease Kidney stones Social History Smoking Status: Never Smoker Alcohol Use: none Drug Use: none Marital Status: Housing Status: lives alone Occupation Status: retired Current/Historical Medications Scheduled Amitriptyline HCl (Amitriptyline HCl), 30 MG PO HS Amlodipine Besylate (Amlodipine Besylate), 2.5 MG PO QAM Aspirin (Aspirin Ec), 81 MG PO QAM Atorvastatin (Atorvastatin Calcium), 80 MG PO HS Carvedilol (Carvedilol), 50 MG PO BID Clopidogrel Bisulfate (Clopidogrel), 75 MG PO QAM Docusate Sodium (Stool Softener), 100 MG PO HS Furosemide (Furosemide), 20 MG PO DAILY Hydralazine HCl (Hydralazine HCl), 50 MG PO TID Insulin Aspart Protamine & Asp (Novolog Mix 70/30 Prefill), 30 UNITS SC QAM Insulin Aspart Protamine & Asp (Novolog Mix 70/30), 75 UNITS SC QPM Isosorbide Mononitrate Ext Rel (Imdur Ext Rel), 120 MG PO BID Multivitamin (Multivitamin), 1 TAB PO QAM Tramadol (Ultram), 100 MG PO BID Scheduled PRN Albuterol Hfa (Ventolin Hfa), 2 PUFF INH Q6H PRN for Shortness of Breath Albuterol Sulf (Proventil 0.083% 2.5MG/3ML), 2.5 MG INH TID PRN for Shortness of Breath Cinnamon (Cinnamon), 2 CAP PO DAILY PRN for HIGH BP Fluticasone Propionate (Fluticasone Propionate), 2 SPRAYS ZANE DAILY PRN for Allergies Nitroglycerin (Nitrostat), 0.4 MG UT UD PRN for Chest Pain Polyethylene Glycol 3350 (Miralax), 1 PACK PO DAILY PRN for Constipation Allergies Coded Allergies: Sulfa Antibiotics (Verified Allergy, Intermediate, RASH/PRURITIS, 04/20/17) Omeprazole (Verified Adverse Reaction, Intermediate, interacts w/ clopidigrol, 04/20/17) Chlorpropamide (Verified Adverse Reaction, Mild, N/V, 04/20/17) ARI Inhibitors (Verified Adverse Reaction, Unknown, AVOIDS SECONDARY TO "OTHER MEDICATIONS" PER PT, 04/20/17) Physical Exam Vital Signs Date Time Temp Pulse Resp B/P (MAP) Pulse Ox O2 Delivery O2 Flow Rate FiO2 04/20/17 23:09 59 16 169/74 97 04/20/17 21:38 56 16 97 04/20/17 21:01 175/70 04/20/17 20:38 64 18 04/20/17 20:08 57 17 04/20/17 20:02 214/90 04/20/17 19:59 36.9 59 20 96 Room Air 04/20/17 19:49 66 Physical Exam GENERAL: Patient is in no acute distress. HEENT: No acute trauma, normocephalic atraumatic, mucous membranes moist, no nasal congestion, no scleral icterus. NECK: No stridor, no adenopathy, no meningismus, trachea is midline. LUNGS: Clear to auscultation bilaterally, no wheeze, no rhonchi, breath sounds equal. HEART: Without murmurs gallops or rubs, regular rate and rhythm. ABDOMEN: Soft, nontender, bowel sounds positive, no hernias, no peritonitis. EXTREMITIES: No cyanosis, full range of motion of all the joints without pain or difficulty, no signs for acute trauma, mild bilateral pedal edema. NEUROLOGIC: Oriented x 3, no acute motor or sensory deficits, no focal weakness. SKIN: No jaundice, skin is cool to touch and pale. Medical Decision & Procedures ER Provider Diagnostic Interpretation: Radiology results as stated below per my review and radiologist interpretation: CHEST ONE VIEW PORTABLE FINDINGS: Cardiac silhouette is moderately enlarged, unchanged. Prior median sternotomy. The fourth sternotomy wires again seen offset to the left which is unchanged. No pneumothorax, pleural effusion, focal airspace consolidation or overt pulmonary edema. Minimal pulmonary vascular congestion persists. Linear subsegmental right perihilar opacity is unchanged suggesting scarring/atelectasis. Mild right hemidiaphragmatic elevation. Bibasilar reticular opacities are unchanged suggesting areas of scarring. Bones are grossly intact. There is fusion hardware of the lower cervical spine. Surgical clips project over the left lower neck. There is suggested rotator cuff calcific tendinosis on the left. IMPRESSION: Cardiomegaly without acute cardiopulmonary process. The above report was generated using voice recognition software. It may contain grammatical, syntax or spelling errors. Electronically signed by: Colby White M.D. 04/20/2017 8:16 PM Laboratory Results 04/20/17 19:50 Red Blood Count 4.11, Mean Corpuscular Volume 91.2, Mean Corpuscular Hemoglobin 29.2, Mean Corpuscular Hemoglobin Concent 32.0, Mean Platelet Volume 11.2, Neutrophils (%) (Auto) 76.1, Lymphocytes (%) (Auto) 15.1, Monocytes (%) (Auto) 6.5, Eosinophils (%) (Auto) 1.7, Basophils (%) (Auto) 0.3, Neutrophils # (Auto) 7.93, Lymphocytes # (Auto) 1.58, Monocytes # (Auto) 0.68, Eosinophils # (Auto) 0.18, Basophils # (Auto) 0.03 04/20/17 19:50 Test 04/20/17 19:50 04/20/17 22:10 White Blood Count 10.43 K/uL (4.8-10.8) Red Blood Count 4.11 M/uL (4.2-5.4) Hemoglobin 12.0 g/dL (12.0-16.0) Hematocrit 37.5 % (37-47) Mean Corpuscular Volume 91.2 fL (80-100) Mean Corpuscular Hemoglobin 29.2 pg (25-34) Mean Corpuscular Hemoglobin Concent 32.0 g/dl (32-36) Platelet Count 188 K/uL (130-400) Mean Platelet Volume 11.2 fL (7.4-10.4) Neutrophils (%) (Auto) 76.1 % Lymphocytes (%) (Auto) 15.1 % Monocytes (%) (Auto) 6.5 % Eosinophils (%) (Auto) 1.7 % Basophils (%) (Auto) 0.3 % Neutrophils # (Auto) 7.93 K/uL (1.4-6.5) Lymphocytes # (Auto) 1.58 K/uL (1.2-3.4) Monocytes # (Auto) 0.68 K/uL (0.11-0.59) Eosinophils # (Auto) 0.18 K/uL (0-0.5) Basophils # (Auto) 0.03 K/uL (0-0.2) RDW Standard Deviation 49.0 fL (36.4-46.3) RDW Coefficient of Variation 14.7 % (11.5-14.5) Immature Granulocyte % (Auto) 0.3 % Immature Granulocyte # (Auto) 0.03 K/uL (0.00-0.02) Anion Gap 6.0 mmol/L (3-11) Est Creatinine Clear Calc Drug Dose 49.5 ml/min Estimated GFR () 55.1 Estimated GFR (Non- 47.5 BUN/Creatinine Ratio 30.8 (10-20) Calcium Level 9.3 mg/dl (8.5-10.1) Total Bilirubin 0.3 mg/dl (0.2-1) Aspartate Amino Transf (AST/SGOT) 25 U/L (15-37) Alanine Aminotransferase (ALT/SGPT) 32 U/L (12-78) Alkaline Phosphatase 41 U/L (45-117) Total Protein 7.4 gm/dl (6.4-8.2) Albumin 3.7 gm/dl (3.4-5.0) Globulin 3.7 gm/dl (2.5-4.0) Albumin/Globulin Ratio 1.0 (0.9-2) Chemistry Specimen Hemolysis Urine Color YELLOW Urine Appearance CLEAR (CLEAR) Urine pH 5.5 (4.5-7.5) Urine Specific [place] 1.013 (1.000-1.030) Urine Protein 2+ (NEG) Urine Glucose (UA) NEG (NEG) Urine Ketones NEG (NEG) Urine Occult Blood NEG (NEG) Urine Nitrite NEG (NEG) Urine Bilirubin NEG (NEG) Urine Urobilinogen NEG (NEG) Urine Leukocyte Esterase NEG (NEG) Urine WBC (Auto) 1-5 /hpf (0-5) Urine RBC (Auto) 0-4 /hpf (0-4) Urine Hyaline Casts (Auto) 1-5 /lpf (0-5) Urine Epithelial Cells (Auto) 5-10 /lpf (0-5) Urine Bacteria (Auto) NEG (NEG) Laboratory results reviewed by me. Medications Administered Medications (Trade) Dose Ordered Sig/Nick Route Start Time Stop Time Status Last Admin Dose Admin Sodium Chloride 500 ml @ 999 mls/hr Q31M STAT IV 04/20/17 19:44 04/20/17 20:14 DC 04/20/17 20:06 999 MLS/HR ECG Indication: altered mental status Rate (beats per minute): 63 Rhythm: normal sinus Findings: RBBB, T-wave inversion (Anterior and Lateral), no acute ischemic change, no ectopy Comparison ECG Date: 02/19/2017 Change: no significant change ED Course 1938: The patient was evaluated in room B10. A complete history and physical exam was performed. 1943: Sodium Chloride 500 ml @ 999 mls/hr IV 2156: I reevaluated and updated the patient. She is doing fine and feels well. She is working on producing a urine sample. 2237: The urine dip shows trace glucose and no signs of infection. 2300: Reevaluated the patient. Discussed results and discharge instructions: She verbalized understanding and agreement. The patient is ready for discharge. Medical Decision Differential diagnoses include: hypoglycemia, electrolyte imbalance, anemia, dehydration, and infection. There is no leukocytosis or concerning anemia. No significant electrolyte abnormality, kidney failure or hepatitis. Urinalysis does not show infection. EKG shows a sinus rhythm, no acute ischemia. Chest x-ray does not show pneumonia or CHF. On exam, the patient was not febrile or toxic. She was mentating well. The patient's blood sugar had gone low at home. She had not eaten her dinner, she had fallen asleep instead. She received IV D10 in route and her sugar is now adequate. In the ED, she ate and her sugar has stayed above 100. She has no complaints, she is being discharged. Blood Pressure Screening Patient's blood pressure: Elevated blood pressure Blood pressure disposition: Referred to PCP Impression Primary Impression: Hypoglycemia Scribe Attestation The scribe's documentation has been prepared under my direction and personally reviewed by me in its entirety. I confirm that the note above accurately reflects all work, treatment, procedures, and medical decision making performed by me. Departure Information Dispostion Home / Self-Care Referrals Nicolette Marquez M.D. (PCP) Forms HOME CARE DOCUMENTATION FORM, IMPORTANT VISIT INFORMATION, WORK / SCHOOL INSTRUCTIONS Patient Instructions My [facility] [employer] Additional Instructions keep close watch on your blood sugar follow with your jean-claude md this upcoming week return if worsening lab testing today was all ok
[2017-04-20 20:06] LABS: BASO % 0.3 %; BASO ABS # 0.03 K/uL (0-0.2); COMPLETE YES; EOS % 1.7 %; HEMATOCRIT 37.5 % (37-47); IG% 0.3 %; LYMPH % 15.1 %; LYMPH ABS # 1.58 K/uL (1.2-3.4); MEAN CELL VOLUME 91.2 fL (80-100); MEAN CORPUSCULAR HEMOGLOBIN 29.2 pg (25-34); MEAN PLATELET VOLUME 11.2 fL (7.4-10.4); MONO % 6.5 %; NEUT % 76.1 %; PLATELET COUNT 188 K/uL (130-400); RED BLOOD COUNT 4.11 M/uL (4.2-5.4); WHITE BLOOD COUNT 10.43 K/uL (4.8-10.8)
--- NOTE | 2017-04-20 20:17 | DIAGNOSTIC IMAGING REPORT ---
CHEST ONE VIEW PORTABLE HISTORY: 76 years-old Female EVALUATE ALTERED MENTAL STATUS/WEAKNESS acute altered mental status COMPARISON: Chest radiograph 02/17/2017 TECHNIQUE: Portable upright AP view of the chest FINDINGS: Cardiac silhouette is moderately enlarged, unchanged. Prior median sternotomy. The fourth sternotomy wires again seen offset to the left which is unchanged. No pneumothorax, pleural effusion, focal airspace consolidation or overt pulmonary edema. Minimal pulmonary vascular congestion persists. Linear subsegmental right perihilar opacity is unchanged suggesting scarring/atelectasis. Mild right hemidiaphragmatic elevation. Bibasilar reticular opacities are unchanged suggesting areas of scarring. Bones are grossly intact. There is fusion hardware of the lower cervical spine. Surgical clips project over the left lower neck. There is suggested rotator cuff calcific tendinosis on the left. IMPRESSION: Cardiomegaly without acute cardiopulmonary process. The above report was generated using voice recognition software. It may contain grammatical, syntax or spelling errors. Electronically signed by: Colby White M.D. 04/20/2017 8:16 PM Dictated Date/Time: 04/20/2017 8:13 PM
[2017-04-20 20:31] LABS: BUN/CREATININE RATIO 30.8 (10-20); CALCIUM 9.3 mg/dl (8.5-10.1); CREATININE 1.13 mg/dl (0.60-1.20); POTASSIUM 3.8 mmol/L (3.5-5.1)
[2017-04-20 22:46] LABS: URINE APPEARANCE CLEAR (CLEAR); URINE BILIRUBIN NEG (NEG); URINE COLOR YELLOW; URINE NITRITE NEG (NEG); URINE PH 5.5 (4.5-7.5); URINE SPECIFIC GRAVITY 1.013 (1.000-1.030); UROBILINOGEN NEG (NEG); ZZUR CULT IF INDIC CLEAN CATCH NO
[2017-04-20 22:50] LABS: MANUAL MICROSCOPIC REQUIRED? NO; REVIEW REQ? NO
[2017-04-20 23:09] VITALS: BP 169/74; PULSE 59; O2SAT 97
== END 2017-04-20 23:09 | disposition home or self-care (01) ==
LOC: EDBD 19:38 → C.EDB 19:39
DX: E11.649 Type 2 diabetes mellitus with hypoglycemia without coma (principal); R61 Generalized hyperhidrosis; I50.32 Chronic diastolic (congestive) heart failure; E11.22 Type 2 diabetes mellitus with diabetic chronic kidney disease; I11.0 Hypertensive heart disease with heart failure; N18.9 Chronic kidney disease, unspecified; Z79.82 Long term (current) use of aspirin; Z79.4 Long term (current) use of insulin; Z83.3 Family history of diabetes mellitus; Z82.49 Family history of ischemic heart disease and other diseases of the circulatory system; Z84.1 Family history of disorders of kidney and ureter; Z83.79 Family history of other diseases of the digestive system

== ENCOUNTER → 2017-05-23 | Outpatient (CLI) | payer OTHER ==
[~2017-05-23] MED LIST changes: +ALBINSX INH; +AMLO5TAB2 PO; +BENZ100C7 PO; +BUME2TAB3 PO; +CARV25TA2 PO; +DILT-115 PO; +DLTCD/240 PO; +FORM1NEB INH; +GABA-112 PO; +HYDR-4717 PO; +HYDR100T12 PO; +INSDGIPEN SC; +IPRA-64 INH; +IPRA1AER2 INH; -LVQ750 PO; +METO5TAB2 PO; +NVLGI7030 SQ; +NVLGIPEN SC; +ONDA4TAB46 PO; +PANT40TA PO; +POTA10CA28 PO; +PRED10TA PO; +PRFINS INH; +SENN-61 PO; +SPIR100T PO; +SPIR25TA6 PO; +SPRN100 PO
[2017-05-23 12:35] LABS: HEMATOCRIT 33.1 % (37-47); HEMOGLOBIN 10.4 g/dL (12.0-16.0); MEAN CELL VOLUME 91.2 fL (80-100); MEAN CORPUSCULAR HEMOGLOBIN 28.7 pg (25-34); MEAN CORPUSCULAR HGB CONC 31.4 g/dl (32-36); MEAN PLATELET VOLUME 11.4 fL (7.4-10.4); PLATELET COUNT 180 K/uL (130-400); RED CELL DISTRIBUTION WIDTH CV 15.1 % (11.5-14.5); RED CELL DISTRIBUTION WIDTH SD 50.8 fL (36.4-46.3); WHITE BLOOD COUNT 8.68 K/uL (4.8-10.8)
[2017-05-23 14:41] LABS: ALBUMIN 3.1 gm/dl (3.4-5.0); BLOOD UREA NITROGEN 28 mg/dl (7-18); CALCIUM 9.2 mg/dl (8.5-10.1); CARBON DIOXIDE 31 mmol/L (21-32); CREATININE 1.17 mg/dl (0.60-1.20); GLUCOSE 95 mg/dl (70-99); POTASSIUM 4.1 mmol/L (3.5-5.1); SODIUM 140 mmol/L (136-145)
[2017-05-23 14:42] LABS: PHOSPHORUS 3.2 mg/dl (2.5-4.9)
== END | disposition home or self-care (01) ==
LOC: C.LABBFT 10:10
PROVIDERS: ATTEND Internal Medicine Nephrology
DX: I12.9 Hypertensive chronic kidney disease with stage 1 through stage 4 chronic kidney disease, or unspecified chronic kidney disease (principal); N18.3 Chronic kidney disease, stage 3 (moderate); N25.81 Secondary hyperparathyroidism of renal origin; D64.9 Anemia, unspecified; R80.9 Proteinuria, unspecified; E55.9 Vitamin D deficiency, unspecified

== ENCOUNTER → 2017-06-20 | Outpatient (CLI) | payer OTHER ==
[~2017-06-20] MED LIST changes: -ALBINSX INH; -AMLO5TAB2 PO; -BENZ100C7 PO; -BUME2TAB3 PO; -CARV25TA2 PO; -DILT-115 PO; -DLTCD/240 PO; -FORM1NEB INH; -GABA-112 PO; -HYDR-4717 PO; -HYDR100T12 PO; -INSDGIPEN SC; -IPRA-64 INH; -IPRA1AER2 INH; -METO5TAB2 PO; -NVLGI7030 SQ; -NVLGIPEN SC; -ONDA4TAB46 PO; -PANT40TA PO; -POTA10CA28 PO; -PRED10TA PO; -PRFINS INH; -SENN-61 PO; -SPIR100T PO; -SPIR25TA6 PO; -SPRN100 PO
== END | disposition home or self-care (01) ==
LOC: C.LABBFT 13:19
PROVIDERS: ATTEND Nurse Practitioner
DX: R35.0 Frequency of micturition (principal)

== ENCOUNTER → 2017-07-18 | Outpatient (CLI) | payer OTHER ==
--- NOTE | 2017-07-18 10:28 | DIAGNOSTIC IMAGING REPORT ---
CHEST 2 VIEWS ROUTINE HISTORY: 77 years-old Female J45.901 Asthma [id number] acute shortness of breath with chest congestion COMPARISON: Chest radiograph 04/20/2017 TECHNIQUE: PA and lateral views of the chest FINDINGS: Cardiac silhouette is mildly enlarged, unchanged. Prior median sternotomy. The sternotomy wires are noted in a sigmoidal distribution which is unchanged and may reflect remote partial dehiscence. Atherosclerosis of the aorta. Mild pulmonary vascular congestion without pneumothorax, pleural effusion, focal airspace consolidation or overt pulmonary edema. Mild right hemidiaphragmatic elevation. Bones of the chest appear grossly intact. Fusion hardware of the lower cervical spine is noted in addition to partially imaged fusion hardware of the lumbar spine. Cholecystectomy clips are present. IMPRESSION: Cardiomegaly with mild pulmonary vascular congestion The above report was generated using voice recognition software. It may contain grammatical, syntax or spelling errors. Electronically signed by: Colby White M.D. 07/18/2017 10:26 AM Dictated Date/Time: 07/18/2017 10:24 AM
== END | disposition home or self-care (01) ==
LOC: C.RAD1850 10:09
PROVIDERS: ATTEND Internal Medicine
DX: J45.901 Unspecified asthma with (acute) exacerbation (principal); I51.7 Cardiomegaly

== ENCOUNTER → 2017-09-09 | Outpatient (CLI) | payer OTHER ==
[2017-09-09 12:27] LABS: HEMATOCRIT 32.5 % (37-47); HEMOGLOBIN 10.5 g/dL (12.0-16.0); MEAN CELL VOLUME 94.2 fL (80-100); MEAN CORPUSCULAR HEMOGLOBIN 30.4 pg (25-34); MEAN CORPUSCULAR HGB CONC 32.3 g/dl (32-36); MEAN PLATELET VOLUME 11.4 fL (7.4-10.4); PLATELET COUNT 154 K/uL (130-400); RED CELL DISTRIBUTION WIDTH CV 15.5 % (11.5-14.5); RED CELL DISTRIBUTION WIDTH SD 52.5 fL (36.4-46.3); WHITE BLOOD COUNT 6.47 K/uL (4.8-10.8)
[2017-09-09 17:31] LABS: ALBUMIN 3.1 gm/dl (3.4-5.0); BLOOD UREA NITROGEN 32 mg/dl (7-18); CALCIUM 9.2 mg/dl (8.5-10.1); CARBON DIOXIDE 31 mmol/L (21-32); CREATININE 1.34 mg/dl (0.60-1.20); GLUCOSE 92 mg/dl (70-99); PHOSPHORUS 3.9 mg/dl (2.5-4.9); POTASSIUM 4.4 mmol/L (3.5-5.1); SODIUM 141 mmol/L (136-145)
== END ==
LOC: C.LABBFT 10:37
PROVIDERS: ATTEND Internal Medicine Nephrology
DX: I12.9 Hypertensive chronic kidney disease with stage 1 through stage 4 chronic kidney disease, or unspecified chronic kidney disease (principal); N18.3 Chronic kidney disease, stage 3 (moderate); N25.81 Secondary hyperparathyroidism of renal origin; D64.9 Anemia, unspecified; R80.9 Proteinuria, unspecified; E55.9 Vitamin D deficiency, unspecified

== ENCOUNTER → 2017-09-25 | Outpatient (CLI) | payer OTHER ==
[2017-09-25 15:23] LABS: TOTAL PROTEIN 6.1 gm/dl (6.4-8.2)
[2017-09-26 06:39] LABS: HEMOGLOBIN A1C 6.6 % (4.5-5.6)
== END | disposition home or self-care (01) ==
LOC: C.LAB1850 13:49
PROVIDERS: ATTEND Nurse Practitioner Adult Health
DX: Z00.00 Encounter for general adult medical examination without abnormal findings (principal); E66.01 Morbid (severe) obesity due to excess calories; R53.83 Other fatigue; E11.29 Type 2 diabetes mellitus with other diabetic kidney complication; E11.42 Type 2 diabetes mellitus with diabetic polyneuropathy; E78.00 Pure hypercholesterolemia, unspecified; R11.2 Nausea with vomiting, unspecified

== ENCOUNTER → 2017-12-09 | Outpatient (CLI) | payer OTHER ==
[~2017-12-09] MED LIST changes: -ALBINS/ INH; +ALBINSX INH; -AMT10 PO; -APR50 PO; +BUME2TAB3 PO; +CARV25TA2 PO; -CINN1CAP2 PO; -CRG25 PO; +DILT-115 PO; +FORM1NEB INH; +HYDR-4717 PO; -INSUINJ13 SC; -LSX40 PO; +METO5TAB2 PO; -NRV5 PO; -NVLGI7030 SC; +NVLGI7030 SQ; +ONDA4TAB46 PO; +PANT40TA PO; +POTA10CA28 PO; +SPIR100T PO
[2017-12-09 12:39] LABS: BLOOD UREA NITROGEN 57 mg/dl (7-18); CALCIUM 9.4 mg/dl (8.5-10.1); CARBON DIOXIDE 29 mmol/L (21-32); CREATININE 2.17 mg/dl (0.60-1.20); GLUCOSE 229 mg/dl (70-99); POTASSIUM 4.5 mmol/L (3.5-5.1); SODIUM 132 mmol/L (136-145)
== END | disposition home or self-care (01) ==
LOC: C.LABBFT 09:20
PROVIDERS: ATTEND Internal Medicine
DX: N18.3 Chronic kidney disease, stage 3 (moderate) (principal)

== ENCOUNTER → 2018-01-06 | Outpatient (CLI) | payer OTHER ==
[2018-01-06 17:33] LABS: HEMATOCRIT 34.7 % (37-47); HEMOGLOBIN 11.6 g/dL (12.0-16.0); MEAN CELL VOLUME 91.3 fL (80-100); MEAN CORPUSCULAR HEMOGLOBIN 30.5 pg (25-34); MEAN CORPUSCULAR HGB CONC 33.4 g/dl (32-36); MEAN PLATELET VOLUME 11.9 fL (7.4-10.4); PLATELET COUNT 175 K/uL (130-400); RED CELL DISTRIBUTION WIDTH CV 14.6 % (11.5-14.5); RED CELL DISTRIBUTION WIDTH SD 48.8 fL (36.4-46.3); WHITE BLOOD COUNT 8.79 K/uL (4.8-10.8)
[2018-01-06 17:40] LABS: ALBUMIN 3.6 gm/dl (3.4-5.0); BLOOD UREA NITROGEN 57 mg/dl (7-18); CALCIUM 9.4 mg/dl (8.5-10.1); CARBON DIOXIDE 30 mmol/L (21-32); CREATININE 1.87 mg/dl (0.60-1.20); GLUCOSE 221 mg/dl (70-99); PHOSPHORUS 3.7 mg/dl (2.5-4.9); POTASSIUM 3.9 mmol/L (3.5-5.1); SODIUM 133 mmol/L (136-145)
== END | disposition home or self-care (01) ==
LOC: C.LABBFT 13:25
PROVIDERS: ATTEND Internal Medicine Nephrology
DX: I12.9 Hypertensive chronic kidney disease with stage 1 through stage 4 chronic kidney disease, or unspecified chronic kidney disease (principal); N18.3 Chronic kidney disease, stage 3 (moderate); D64.9 Anemia, unspecified; I70.1 Atherosclerosis of renal artery; E55.9 Vitamin D deficiency, unspecified

== ENCOUNTER 2018-11-28 11:34 | Observation (INO) ==
[2018-11-28] MEDS ORDERED: SODIUM CHLORIDE 0.9% 1000ML 1,000 ML IV SCH ×2 (12:00→16:00)
[2018-11-28 12:11] LABS: Basophils # (auto) 0.02 K/uL (0-0.2); Basophils % (auto) 0.3 %; Eosinophils # (auto) 0.06 K/uL (0-0.5); Eosinophils % (auto) 0.9 %; Hematocrit (blood only) 31.5 % (37-47); Hemoglobin 10.4 g/dL (12.0-16.0); Immature Granulocytes # (auto) 0.02 K/uL (0.00-0.02); Immature Granulocytes % (auto) 0.3 %; Lymphocytes # (auto) 0.95 K/uL (1.2-3.4); Lymphocytes % (auto) 14.2 %; Mean Corpuscular Volume 95.7 fL (80-100); Mean Platelet Volume 11.6 fL (7.4-10.4); Monocytes # (auto) 0.51 K/uL (0.11-0.59); Monocytes % (auto) 7.6 %; Neutrophils # (auto) 5.14 K/uL (1.4-6.5); Neutrophils % (auto) 76.7 %; Platelet Count 154 K/uL (130-400); RDW Coefficient of Variation 13.3 % (11.5-14.5); RDW Standard Deviation 46.4 fL (36.4-46.3); Red Blood Count 3.29 M/uL (4.2-5.4)
--- NOTE | 2018-11-28 12:23 | XRay Report ---
XR chest 1V portable CLINICAL HISTORY: Chest pain and syncope. COMPARISON STUDY: Chest radiograph April 22, 2018. FINDINGS: There are median sternotomy wires. Mild cardiomegaly is noted without evidence for pulmonar y edema. There is no consolidation. No pneumothorax or pleural effusion is noted. Anterior cervical s pine fusion is incidentally noted. IMPRESSION: No acute cardiopulmonary findings. Electronically signed by: Zaheer Marquez M.D. 11/28/2018 12:21 PM
[2018-11-28 12:30] LABS: Alanine Aminotransferase 32 U/L (12-78); Albumin Globulin Ratio 1.2 (0.9-2); Albumin Level 3.4 gm/dl (3.4-5.0); Alkaline Phosphatase 43 U/L (45-117); BUN Creatinine Ratio 34.6 (10-20); Bilirubin,Total 0.4 mg/dl (0.2-1); Blood Urea Nitrogen 54 mg/dl (7-18); Calcium 9.1 mg/dl (8.5-10.1); Carbon Dioxide 28 mmol/L (21-32); Chloride 107 mmol/L (98-107); Creatinine Clr Calc Pharmacy 30.3 ml/min; Est GFR (African American) 36.5; Est GFR (Non-African American) 31.5; Globulin 2.8 gm/dl (2.5-4.0); Glucose 207 mg/dl (70-99); Sodium 139 mmol/L (136-145); Total Protein 6.2 gm/dl (6.4-8.2); Troponin I < 0.015 ng/ml (0-0.045)
--- NOTE | 2018-11-28 12:49 | CT Scan Report ---
CT OF THE HEAD WITHOUT CONTRAST CLINICAL HISTORY: syncope w [facility] COMPARISON STUDY: Head CT April 22, 2018. TECHNIQUE: Helical axial images of the head were obtained without IV contrast. Automated exposure con trol was utilized for the study. A dose lowering technique was utilized adhering to the principles o f ALARA. FINDINGS: No acute intracranial hemorrhage, midline shift or mass effect is present. The ventricular system is unremarkable. The basilar cisterns are patent. No extra-axial collections are present. Ther e are no findings to suggest acute dural sinus thrombosis or acute territorial infarct. No significan t calvarial abnormalities are present. Visualized portions of the sinuses and mastoid air cells are c lear. IMPRESSION: 1. No acute intracranial findings. 2. No calvarial fracture. Small posterior scalp contusion. Electronically signed by: Zaheer Marquez M.D. 11/28/2018 12:48 PM
--- NOTE | 2018-11-28 12:58 | CT Scan Report ---
CT cervical spine wo con CT DOSE: 1060.75 mGy.cm CLINICAL HISTORY: 78 years-old Female with syncope w [facility]. Acute sequelae with neck injury COMPARISON: CT head of same day TECHNIQUE: Multiple axial CT images of the cervical spine were obtained without contrast. A dose low ering technique was utilized adhering to the principles of ALARA. FINDINGS: Discectomy changes with anterior plate and screw fusion at C5-C6. Satisfactory alignment without evid ence of acute hardware complication. Mild multilevel intervertebral disc space narrowing. Moderate mu ltilevel spondylitic spurring with moderate facet arthrosis. 3 mm anterolisthesis C7 on T1 is likely on a degenerative basis. Partially calcified pannus posterior to the odontoid process. No acute fract ure or subluxation identified. Evaluation of the central canal and neuroforamina is better assessed b y MRI. Nonspecific sclerotic appearance of the left mastoid distribution. No pneumothorax. Calcified plaque of the carotid bulbs. IMPRESSION: No acute fracture or subluxation. The above report was generated using voice recognition software. It may contain grammatical, syntax o r spelling errors. Electronically signed by: Colby White M.D. 11/28/2018 12:56 PM
[2018-11-28 13:49] LABS: Appearance Urine Clear (Clear); Bilirubin Urine Negative (Negative); Blood Urine Negative (Negative); Color Urine Yellow; Glucose Urine UA Negative (Negative); Ketones Urine Negative (Negative); Leukocyte Esterase Urine Negative (Negative); Nitrite Urine Negative (Negative); Protein Urine Negative (Negative); Specific Gravity Urine 1.011 (1.000-1.030); Urobilinogen Urine Negative (Negative)
[2018-11-28 15:17] LABS: Potassium 4.3 mmol/L (3.5-5.1)
--- NOTE | 2018-11-28 15:43 | History & Physical Report ---
Date of Service November 28, 2018 Assessment & Plan (1) Syncope: - Admit to tele for obs - Check 2D echo - Troponin at 2200 - Takes Bumex and spironolactone for CHF, with normal dry weight 199lbs -follows with Dr. Fox as an outpatient - EKG reviewed and in NSR - Possibly that this was due to a vasovagal episode as the patient is on Bumex and spironolactone at home. Patient may be slightly dry. Patient got 1 L NSS in the ER. No more fluids with history of CHF, allow morning medications to turner. - PT/OT consults, walk with nurse - to assist with discharge, patient lives at home by herself. She will likely be able to return there tomorrow upon discharge. Patient was encouraged to use walker versus a cane. (2) CHI (closed head injury): -CT of the head is negative, no laceration -Tylenol and tramadol available for pain relief -Patient denies any headache, dizziness, blurred vision or other visual changes (3) CHF (congestive heart failure): -Chronic systolic and diastolic -Continue ASA 81 mg daily, Bumex 2 mg p.o. qam, spironolactone 25 mg QAM, carvedilol 25 mg BID, hydralazine 100 mg TID, Imdur at 120 mg p.o. BID -Check 2D echo (4) Renal artery stenosis: -Continue antihypertensives as above (5) Hyperlipidemia: -Continue atorvastatin 80 mg p.o. HS (6) Hypertension: -Continue antihypertensives as above (7) Chronic kidney disease, stage 3 (moderate): -Creatinine currently 1.57 with a baseline of 1.5-1.8 (8) CAD (coronary artery disease): -Continue medications as above -continue Plavix, aspirin and statin therapy (9) History of heart artery stent: (10) H/O heart bypass surgery: (11) Peripheral artery disease: - noted (12) Anemia: -Hemoglobin currently around 10, at baseline (13) Asthma: -Stable continue inhalers albuterol as needed (14) Diabetes: -Continue Lantus 30 units HS -ISS with Accu-Cheks ACHS (15) GERD (gastroesophageal reflux disease): -Continue Reglan ACHS, pantoprazole 40 mg nightly (16) Obesity (BMI 30-39.9): -Diet and exercise to be encouraged upon discharge -BMI 34.3 (17) Chronic knee pain: -May use tramadol for pain relief (18) DVT prophylaxis: -Teds, SCDs, Plavix and aspirin History of Present Illness Primary Care Provider: Nicolette Marquez MD This is a 78 yo F with PMHx of chronic diastolic CHF, sinus bradycardia, hx bypass surgery, anemia, renal artery stenosis, CKD stage III, asthma who presents after an episode of syncope. Patient was at home this morning and had gotten up from a sitting position to walk to a few steps to her telephone and while she was standing, she quickly got lightheaded, diaphoretic, dizzy and fell to the floor. She believes she was on the floor for about 20 minutes until her son came to get her, as her daughter had called him. She reports hitting the back of her head however has no open skin wound. She denies headache and believes LOC was only for a few seconds. She does feel sore in her back and her hips bilaterally but has chronic pain in these areas. She denies any headache. This event was unwitnessed as she lives at home alone. Patient typically uses a cane for ambulation assistance, however during this instance she was just holding onto the wall. Patient also has a walker with a seat at home. Patient reports taking all her morning medications today, ate breakfast and drank some water this morning. Allergies Allergy/AdvReac Type Severity Reaction Status Date / Time Sulfa (Sulfonamide Allergy Intermediate RASH/PRURIT Verified 11/28/18 11:58 Antibiotics) IS omeprazole AdvReac Intermediate interacts Verified 11/28/18 11:58 w/ clopidigrol chlorpropamide AdvReac Mild N/V Verified 11/28/18 11:58 ARI Inhibitors AdvReac Unknown AVOIDS Verified 11/28/18 11:58 SECONDARY TO "OTHER MEDICATIONS" PER PT Home Medications Home Medications Medication Instructions Recorded Confirmed Type Citracal Plus Magnesium 1 tab PO .Q OTHER HS 04/23/18 11/28/18 History Glucagon Emergency Kit (human) 1 dose SUBCUT UD PRN 04/23/18 11/28/18 History albuterol sulfate 2 puff INHALATION QID PRN 04/23/18 11/28/18 History albuterol sulfate 2.5 mg INHALATION TID PRN 04/23/18 11/28/18 History aspirin 81 mg PO QAM 04/23/18 11/28/18 History atorvastatin 80 mg PO HS 04/23/18 11/28/18 History cinnamon bark [Cinnamon] 1,000 mg PO DAILY PRN 04/23/18 11/28/18 History clopidogrel 75 mg PO QAM 04/23/18 11/28/18 History docusate sodium 100 mg PO HS 04/23/18 11/28/18 History fluticasone propionate [Flonase 1 spray INTRANASAL BID PRN 04/23/18 11/28/18 History Allergy Relief] gabapentin 200 mg PO HS 04/23/18 11/28/18 History hydralazine 100 mg PO TID 04/23/18 11/28/18 History isosorbide mononitrate 120 mg PO BID 04/23/18 11/28/18 History metoclopramide HCl 5 mg PO ACHS 04/23/18 11/28/18 History multivitamin [Multiple Vitamins] 1 tab PO QDL 04/23/18 11/28/18 History nitroglycerin [Nitrostat] 0.4 mg SUBLINGUAL UD PRN 04/23/18 11/28/18 History potassium chloride 10 meq PO QDL 04/23/18 11/28/18 History tramadol 50 - 100 mg PO BID PRN 04/23/18 11/28/18 History bumetanide 2 mg PO QAM 11/28/18 11/28/18 History carvedilol 25 mg PO BID 11/28/18 11/28/18 History insulin aspart U-100 [Novolog 7 unit SUBCUT TID 11/28/18 11/28/18 History Flexpen U-100 Insulin] insulin glargine [Basaglar KwikPen 30 unit SUBCUT HS 11/28/18 11/28/18 History U-100 Insulin] iron 18 mg PO QDL 11/28/18 11/28/18 History nystatin 1 applic TOPICAL BID 11/28/18 11/28/18 History pantoprazole 40 mg PO QAM 11/28/18 11/28/18 History psyllium husk [Metamucil] 1 tbsp PO HS 11/28/18 11/28/18 History spironolactone 50 mg PO QAM 11/28/18 11/28/18 History Past Med/Surg History Medical History Obesity (BMI 30-39.9) Syncope (Acute) Hyperlipidemia Peripheral artery disease Renal artery stenosis Anemia Asthma GERD (gastroesophageal reflux disease) CAD (coronary artery disease) Diabetes (Chronic) Hypertension (Chronic) CHF (congestive heart failure) Chronic kidney disease, stage 3 (moderate) Anemia Asthma CAD (coronary artery disease) CKD (chronic kidney disease) Diabetes mellitus GERD (gastroesophageal reflux disease) Hyperlipidemia Hypertension Surgical History H/O heart bypass surgery (Resolved) History of heart artery stent (Resolved) History of coronary artery bypass graft History of coronary artery stent placement Social History Communication Ability: Effective Beliefs That Will Affect Care: None Current Living Situation: Alone Feels Safe at Home: Yes Smoking Status: Never smoker Hx Alcohol Use: No Hx Substance Use: No Review of Systems Review of Systems: Constitutional: No fever, sweats or chills Eyes: No diplopia, no worsening or blurred vision ENT: normal hearing, no trouble swallowing Respiratory: No cough, sputum, dyspnea at rest or on exertion Cardiovascular: No chest pain, tightness or palpitations Abdomen: No pain, nausea, vomiting, diarrhea or constipation Musculoskeletal: + back pain and bilateraly hip pain, No other joint pain, calf pain, swelling Neurologic: No weakness, numbness/tingling, or balance problems Psychiatric: No anxiety or depression Skin: No rash or itch Physical Exam Physical Exam: General: awake, alert, no apparent distress, + obese Head: Normocephalic, atraumatic, + posterior cranial contusion, no laceration. ENT: PERRL, EOMI, no pharyngeal exudate, mucous membranes moist Chest: Clear to auscultation, on room air, no adventitious breath sounds Cardiac: Regular rate and rhythm, no murmur, no JVD, normal peripheral pulses, good capillary refill Abdominal: NABS x 4 quadrants, soft, nontender to palpation, no rebound, g uarding or tenderness Extremities: Normal inspection, no peripheral edema or erythema, calfs nontender to palpation Psych: Normal mood and affect Neuro: AAO x 3, strength intact bilaterally and related 5/5, no motor deficits, speech is clear, no peripheral sensory deficits Results & Data Vital Signs (Past 12 Hours) Vital Signs Temp Pulse Resp BP Pulse Ox 11/28/18 15:12 58 L 22 155/68 H 98 11/28/18 13:25 58 L 20 165/52 H 97 11/28/18 11:30 36.8 C 60 20 201/74 H [address] cervical spine wo con CT DOSE: 1060.75 mGy.cm CLINICAL HISTORY: 78 years-old Female with syncope w CHI. Acute sequelae with neck injury COMPARISON: CT head of same day TECHNIQUE: Multiple axial CT images of the cervical spine were obtained without contrast. A dose lowering technique was utilized adhering to the principles of ALARA. FINDINGS: Discectomy changes with anterior plate and screw fusion at C5-C6. Satisfactory alignment without evidence of acute hardware complication. Mild multilevel intervertebral disc space narrowing. Moderate multilevel spondylitic spurring with moderate facet arthrosis. 3 mm anterolisthesis C7 on T1 is likely on a degenerative basis. Partially calcified pannus posterior to the odontoid pr ocess. No acute fracture or subluxation identified. Evaluation of the central canal and neuroforamina is better assessed by MRI. Nonspecific sclerotic appearance of the left mastoid distribution. No pneumothorax. Calcified plaque of the carotid bulbs. IMPRESSION: No acute fracture or subluxation. CT OF THE HEAD WITHOUT CONTRAST CLINICAL HISTORY: syncope w CHI COMPARISON STUDY: Head CT April 22, 2018. TECHNIQUE: Helical axial images of the head were obtained without IV contrast. Automated exposure control was utilized for the study. A dose lowering technique was utilized adhering to the principles of ALARA. FINDINGS: No acute intracranial hemorrhage, midline shift or mass effect is present. The ventricular system is unremarkable. The basilar cisterns are patent. No extra-axial collections are present. There are no findings to suggest acute dural sinus thrombosis or acute territorial infarct. No significant calvarial abnormalities are present. Visualized portions of the sinuses and mastoid air cells are clear. IMPRESSION: 1. No acute intracranial findings. 2. No calvarial fracture. Small posterior scalp contusion. XR chest 1V portable CLINICAL HISTORY: Chest pain and syncope. COMPARISON STUDY: Chest radiograph April 22, 2018. FINDINGS: There are median sternotomy wires. Mild cardiomegaly is noted without evidence for pulmonary edema. There is no consolidation. No pneumothorax or pleural effusion is noted. Anterior cervical spine fusion is incidentally noted. IMPRESSION: No acute cardiopulmonary findings. ECG Additional Comments: 28-NOV-2018 11:42:03 [facility]-EDSTAT ROUTINE RETRIEVAL Poor data quality, interpretation may be adversely affected Normal sinus rhythm Right bundle branch block Abnormal ECG When compared with ECG of 22-APR-2018 22:25, NE interval has decreased Vent. rate has increased BY 22 BPM QRS duration has decreased Nonspecific T wave abnormality, improved in Anterior leads Nonspecific T wave abnormality now evident in Lateral leads 25mm/s 10mm/mV 150Hz 9.0.8 12SL 241 PRITI: 10 Unconfirmed Vent. rate 60 BPM NE interval 150 ms QRS duration 142 ms QT/QTc 492/492 ms P-R-T axes 26 -4 81 Code Status & VTE Plan Code Status DNR - discussed with pt and sons at bedside Supervising Physician Co-Signing Physician Notes I supervised Nuha Moss PA-C on this admission. I interviewed and examined the patient independently of her. The plan is as written in the PA's note except for any following changes/exceptions: 78yo M w/ hx of CAD who presents with syncopal episode. Patient reports she was on the phone with her daughter, felt chest pain, felt lightheaded, and fell to the ground. She may have lost consciousness, but she is not sure. She had another episode of chest pain that resolved with nitro in the ambulance on the way to the hospital. She had one other episode of this about 3 weeks ago that self-resolved within a few minutes. At that time, she felt somewhat short of breath and dizzy. - Will trend EKGs and troponins, get echo, and put on telemetry - Sees Dr. Barlow as outpatient. Would like to see cardiology while in the hospital which I think is appropriate. Question of stress testing (would have to be next week) and possibly arranging an event monitor. PG Care Time/CCT Total # of Minutes Spent Total Time Spent with Patient: Total time spent is greater than 50% in coordination of care (as documented) at patient's floor/unit and/or counseling patient: (1) CHI (closed head injury) Encounter type: initial encounter Qualified Code(s): S09.90XA - Unspecified injury of head, initial encounter (2) Syncope Syncope type: unspecified Qualified Code(s): R55 - Syncope and collapse
[2018-11-28] MEDS ORDERED: ONDANSETRON INJ 2 MG/ML 2 ML VIAL IV PRN (15:46)
[2018-11-28] MEDS ORDERED: ALBUTEROL HFA 8 GM INHALER INH PRN (15:51)
[2018-11-28] MEDS ORDERED: NITROGLYCERIN SL 0.4 MG/TAB TAB SL PRN (15:51)
[2018-11-28] MEDS ORDERED: TRAMADOL HCL 50 MG TABLET PO PRN (15:51)
[2018-11-28] MEDS ORDERED: ALBUTEROL 0.083% NEBU SOLN 3 ML VIAL INH PRN (15:51)
[2018-11-28] MEDS ORDERED: FLUTICASONE PROPIONATE NA SPR 16 GM BTL PRN (15:51)
[2018-11-28] MEDS ORDERED: NON-FORMULARY MEDICATION (Cinnamon Bark [Cinnamon] 1,000 MG) PO PRN (15:51)
[2018-11-28] MEDS ORDERED: GLUCOSE 10 TABS/TUBE PO PRN ×2 (16:15→18:11)
[2018-11-28] MEDS ORDERED: CARBOHYDRATES FOR HYPOGLYCEMIA PO PRN ×2 (16:15→18:11)
[2018-11-28] MEDS ORDERED: GLUCAGON FOR INJ 1 MG VIAL IM PRN (16:15)
[2018-11-28] MEDS ORDERED: DEXTROSE 50% 50 ML SYRINGE IV PRN ×2 (16:15→18:11)
[2018-11-28] MEDS ORDERED: GLUCOSE 40% GEL 15 GM TUBE PO PRN ×2 (16:15→18:11)
--- NOTE | 2018-11-28 16:39 | Emergency Department Note ---
Entered by Sunitha Tucker acting as a scribe for History of Present Illness General Chief complaint: Syncope Source: patient Mode of arrival: EMS Limitations: no limitations History of Present Illness Provider complaint: fall Onset (ago): hour(s) (this am) Location: head Pain Consistency: + other (episode) Quality: + other (fall) Associated symptoms: + chest pain and + syncope The patient is a 78 year old female who presents to the ER via EMS following a fall that occurred prior to arrival. The patient reports that this morning she woke up and was experiencing chest pain in the middle of her chest but denies it being severe. She states that shortly after she was standing talking to her daughter on her wall phone when she suddenly fell backwards and lost consciousness. She notes that she did injure her head during this episode and reports that she is currently on blood thinners. She states that she has a history of heart disease and was last evaluated in September. She notes that she did take her blood pressure medication this morning and that she did eat breakfast. She denies making any sudden movements prior to the fall. She reports that she does have a history of diabetes but denies being hyperglycemic this morning. She explains that she does have a monitor attached to keep track of her levels. Home Medications Home Medications Medication Instructions Recorded Confirmed Type Citracal Plus Magnesium 1 tab PO .Q OTHER HS 04/23/18 11/28/18 History Glucagon Emergency Kit (human) 1 dose SUBCUT UD PRN 04/23/18 11/28/18 History albuterol sulfate 2 puff INHALATION QID PRN 04/23/18 11/28/18 History albuterol sulfate 2.5 mg INHALATION TID PRN 04/23/18 11/28/18 History aspirin 81 mg PO QAM 04/23/18 11/28/18 History atorvastatin 80 mg PO HS 04/23/18 11/28/18 History cinnamon bark [Cinnamon] 1,000 mg PO DAILY PRN 04/23/18 11/28/18 History clopidogrel 75 mg PO QA 04/23/18 11/28/18 History docusate sodium 100 mg PO HS 04/23/18 11/28/18 History fluticasone propionate [Flonase 1 spray INTRANASAL BID PRN 04/23/18 11/28/18 History Allergy Relief] gabapentin 200 mg PO HS 04/23/18 11/28/18 History hydralazine 100 mg PO TID 04/23/18 11/28/18 History isosorbide mononitrate 120 mg PO BID 04/23/18 11/28/18 History metoclopramide HCl 5 mg PO ACHS 04/23/18 11/28/18 History multivitamin [Multiple Vitamins] 1 tab PO QDL 04/23/18 11/28/18 History nitroglycerin [Nitrostat] 0.4 mg SUBLINGUAL UD PRN 04/23/18 11/28/18 History potassium chloride 10 meq PO QDL 04/23/18 11/28/18 History tramadol 50 - 100 mg PO BID PRN 04/23/18 11/28/18 History Basaglar KwikPen U-100 Insulin 30 unit SUBCUT HS 11/28/18 11/28/18 History Metamucil 1 tbsp PO HS 11/28/18 11/28/18 History Novolog Flexpen U-100 Insulin 7 unit SUBCUT TID 11/28/18 11/28/18 History bumetanide 2 mg PO QAM 11/28/18 11/28/18 History carvedilol 25 mg PO BID 11/28/18 11/28/18 History iron 18 mg PO QDL 11/28/18 11/28/18 History nystatin 1 applic TOPICAL BID 11/28/18 11/28/18 History pantoprazole 40 mg PO QAM 11/28/18 11/28/18 History spironolactone 50 mg PO QAM 11/28/18 11/28/18 History Allergies Allergy/AdvReac Type Severity Reaction Status Date / Time Sulfa (Sulfonamide Allergy Intermediate RASH/PRURIT Verified 11/28/18 11:58 Antibiotics) IS omeprazole AdvReac Intermediate interacts Verified 11/28/18 11:58 w/ clopidigrol chlorpropamide AdvReac Mild N/V Verified 11/28/18 11:58 ARI Inhibitors AdvReac Unknown AVOIDS Verified 11/28/18 11:58 SECONDARY TO "OTHER MEDICATIONS" PER PT Past Med/Surg History Medical History Obesity (BMI 30-39.9) Syncope (Acute) Hyperlipidemia Peripheral artery disease Renal artery stenosis Anemia Asthma GERD (gastroesophageal reflux disease) CAD (coronary artery disease) Diabetes (Chronic) Hypertension (Chronic) CHF (congestive heart failure) Chronic kidney disease, stage 3 (moderate) Anemia Asthma CAD (coronary artery disease) CKD (chronic kidney disease) Diabetes mellitus GERD (gastroesophageal reflux disease) Hyperlipidemia Hypertension Surgical History H/O heart bypass surgery (Resolved) History of heart artery stent (Resolved) History of coronary artery bypass graft History of coronary artery stent placement Social History Communication Ability: Effective Beliefs That Will Affect Care: Rastafari Rastafari Beliefs: Yarsanism marital status: / Current Living Situation: Alone Feels Safe at Home: Yes Smoking Status: Never smoker Second Hand Exposure: No Hx Alcohol Use: No Hx Substance Use: No Review of Systems See HPI for pertinent positives & negatives. and A total of 10 systems reviewed and were otherwise negative Physical Exam Vital Signs Vital Signs - 24 hr 11/28/18 11:30 11/28/18 13:25 11/28/18 13:30 Temperature 36.8 C Temperature Source Oral Sepsis Recent Fever Within 48 Hours No Sepsis New/Unexplained Change in Mental Status No Sepsis Action Taken by Nursing No Action Required Pulse Rate - Lying 62 Pulse Rate - Sitting 63 Pulse Rate 60 58 L Pulse Rate from SpO2 Sensor 58 L Respiratory Rate 20 20 Respiratory Effort / Characteristics Non-Labored Respiratory Depth Normal Respiratory Pattern Regular Blood Pressure - Lying 168/56 H Blood Pressure - Sitting 165/52 H Blood Pressure 201/74 H 165/52 H Blood Pressure Mean 116 89 Blood Pressure Position Sitting Pulse Oximetry 97 97 Oxygen Delivery Method Room Air Room Air 11/28/18 15:12 11/28/18 16:00 Temperature Temperature Source Sepsis Recent Fever Within 48 Hours Sepsis New/Unexplained Change in Mental Status Sepsis Action Taken by Nursing Pulse Rate - Lying Pulse Rate - Sitting Pulse Rate 58 L 59 L Pulse Rate from SpO2 Sensor 59 L 58 L Respiratory Rate 22 17 Respiratory Effort / Characteristics Respiratory Depth Respiratory Pattern Blood Pressure - Lying Blood Pressure - Sitting Blood Pressure 155/68 H 179/81 H Blood Pressure Mean 97 113 Blood Pressure Position Pulse Oximetry 98 98 Oxygen Delivery Method Vital signs reviewed. General: Elderly, obese, generally well-appearing, in some distress. HEENT: No scleral icterus, PERRLA, neck supple. Atraumatic. Cardiovascular: Distant heart tones. Pulmonary: Clear to auscultation bilaterally, normal work of breathing. Abdomen: Soft, nontender, nondistended, positive bowel sounds. Musculoskeletal: Atraumatic, no peripheral edema. Tenderness along the cervical spine and to the base of the skull. Thoracic and lumbar spines are non-tender. Neurologic: Patient awake alert and oriented x 3, full strength in all 4 extremities. Cranial nerves 2 through 12 grossly intact. Skin: Warm, dry, no rash Course 1158: Past medical records reviewed. The patient was evaluated in room C6. A complete history and physical examination was performed. 1501; I updated the patient and her family. They are agreeable with the treatment plan. 1535: I discussed the patient's case with Nuha Moss PA-C - [facility] Hospitalist. She and her attending, Dr. Gonzalez, will evaluate the patient for further management. Administered Medications Discontinued Medications Acetaminophen (Tylenol) 650 mg PO Q4H PRN PRN Reason: Moderate Pain Stop: 12/28/18 15:45 Last Admin: 11/30/18 08:35 Dose: 650 mg Documented by: [id number] Admin: 11/29/18 11:40 Dose: 650 mg Documented by: [id number] Aspirin (Ecotrin Ectab) 81 mg PO QAM [facility] Stop: 12/29/18 08:59 Last Admin: 11/30/18 07:36 Dose: 81 mg Documented by: [id number] Admin: 11/29/18 08:21 Dose: 81 mg Documented by: [id number] Atorvastatin Calcium (Lipitor) 80 mg PO [facility] Stop: 12/28/18 20:59 Last Admin: 11/29/18 20:51 Dose: 80 mg Documented by: [id number] Admin: 11/28/18 19:34 Dose: 80 mg Documented by: [id number] Bumetanide (Bumex) 2 mg PO QAM [facility] Stop: 12/29/18 08:59 Last Admin: 11/30/18 07:38 Dose: 2 mg Documented by: [id number] Admin: 11/29/18 08:22 Dose: 2 mg Documented by: [id number] Calcium Citrate (Citracal) 950 mg PO Q2D@2100 [facility] Stop: 12/28/18 20:59 Last Admin: 11/28/18 19:34 Dose: 950 mg Documented by: [id number] Carvedilol (Coreg) 25 mg PO BID [facility] Stop: 12/28/18 20:59 Last Admin: 11/30/18 07:38 Dose: 25 mg Documented by: [id number] Admin: 11/29/18 20:49 Dose: 25 mg Documented by: [id number] Admin: 11/29/18 08:22 Dose: 25 mg Documented by: [id number] Admin: 11/28/18 19:35 Dose: 25 mg Documented by: [id number] Clopidogrel Bisulfate (Plavix) 75 mg PO QAM [facility] Stop: 12/29/18 08:59 Last Admin: 11/30/18 07:38 Dose: 75 mg Documented by: [id number] Admin: 11/29/18 08:22 Dose: 75 mg Documented by: [id number] Docusate Sodium (Colace) 100 mg PO [facility] Stop: 12/28/18 20:59 Last Admin: 11/29/18 20:51 Dose: 100 mg Documented by: [id number] Admin: 11/28/18 19:35 Dose: 100 mg Documented by: [id number] Ferrous Sulfate (Feosol) 325 mg PO QDL [facility] Stop: 12/29/18 11:29 Last Admin: 11/30/18 10:48 Dose: 325 mg Documented by: [id number] Admin: 11/29/18 11:35 Dose: 325 mg Documented by: [id number] Gabapentin (Neurontin) 200 mg PO [facility] Stop: 12/28/18 20:59 Last Admin: 11/29/18 20:48 Dose: 200 mg Documented by: [id number] Admin: 11/28/18 19:35 Dose: 200 mg Documented by: [id number] Hydralazine HCl (Apresoline) 100 mg PO TID [facility] Stop: 12/28/18 20:59 Last Admin: 11/30/18 07:37 Dose: 100 mg Documented by: [id number] Admin: 11/29/18 20:48 Dose: 100 mg Documented by: [id number] Admin: 11/29/18 12:55 Dose: 100 mg Documented by: [id number] Admin: 11/29/18 08:21 Dose: 100 mg Documented by: [id number] Admin: 11/28/18 19:35 Dose: 100 mg Documented by: [id number] Sodium Chloride (Nss 1000ml) 1,000 mls @ 100 mls/hr IV .Q10H [facility] Stop: 11/28/18 21:59 Last Infusion: 11/28/18 22:30 Dose: 0 mls/hr Documented by: [id number] Admin: 11/28/18 12:22 Dose: 100 mls/hr Documented by: [id number] Insulin Aspart (Novolog Flexpen) 0 units SC ACHS [facility] Stop: 12/28/18 20:59 Last Admin: 11/30/18 08:32 Dose: 4 units Documented by: [id number] Cosigned by: [id number] Admin: 11/29/18 20:47 Dose: 3 units Documented by: [id number] Cosigned by: [id number] Admin: 11/29/18 18:04 Dose: 6 units Documented by: [id number] Cosigned by: [id number] Admin: 11/29/18 12:52 Dose: 8 units Documented by: [id number] Cosigned by: [id number] Admin: 11/29/18 08:24 Dose: 6 units Documented by: [id number] Cosigned by: [id number] Admin: 11/28/18 20:46 Dose: 7 units Documented by: [id number] Cosigned by: [id number] Insulin Glargine (Lantus Solostar Pen) 30 units SQ HS [facility] Stop: 12/28/18 20:59 Last Admin: 11/29/18 20:46 Dose: 30 units Documented by: [id number] Cosigned by: [id number] Admin: 11/28/18 20:46 Dose: 30 units Documented by: [id number] Cosigned by: [id number] Isosorbide Mononitrate (Imdur Extended Rel) 120 mg PO BID [facility] Stop: 12/28/18 20:59 Last Admin: 11/30/18 07:38 Dose: 120 mg Documented by: [id number] Admin: 11/29/18 20:50 Dose: 120 mg Documented by: [id number] Admin: 11/29/18 08:20 Dose: 120 mg Documented by: [id number] Admin: 11/28/18 19:35 Dose: 120 mg Documented by: [id number] Metoclopramide HCl (Reglan) 5 mg PO ACHS [facility] Stop: 12/28/18 20:59 Last Admin: 11/30/18 10:49 Dose: 5 mg Documented by: [id number] Admin: 11/30/18 07:37 Dose: 5 mg Documented by: [id number] Admin: 11/29/18 20:47 Dose: 5 mg Documented by: [id number] Admin: 11/29/18 18:03 Dose: 5 mg Documented by: [id number] Admin: 11/29/18 12:51 Dose: 5 mg Documented by: [id number] Admin: 11/29/18 08:23 Dose: 5 mg Documented by: [id number] Admin: 11/28/18 19:35 Dose: 5 mg Documented by: [id number] Multivitamins (Multivitamin Tab) 1 tab PO QDL [facility] Stop: 12/29/18 11:29 Last Admin: 11/30/18 10:49 Dose: 1 tab Documented by: [id number] Admin: 11/29/18 11:36 Dose: 1 tab Documented by: [id number] Nystatin (Nystatin) 1 appln EXT BID [facility] Stop: 12/28/18 20:59 Last Admin: 11/30/18 07:39 Dose: Not Given Documented by: [id number] Admin: 11/29/18 20:50 Dose: 1 appln Documented by: [id number] Admin: 11/29/18 08:20 Dose: Not Given Documented by: [id number] Admin: 11/28/18 19:31 Dose: Not Given Documented by: [id number] Pantoprazole Sodium (Protonix) 40 mg PO QAM [facility] Stop: 12/29/18 08:59 Last Admin: 11/30/18 07:37 Dose: 40 mg Documented by: [id number] Admin: 11/29/18 08:22 Dose: 40 mg Documented by: [id number] Potassium Chloride (Klor-Con M10) 10 meq PO QDL [facility] Stop: 12/29/18 11:29 Last Admin: 11/30/18 10:48 Dose: 10 meq Documented by: [id number] Admin: 11/29/18 11:36 Dose: 10 meq Documented by: [id number] Psyllium Hydrophilic Mucilloid (Metamucil) 1 pkt PO HS [facility] Stop: 12/28/18 20:59 Last Admin: 11/29/18 20:48 Dose: 1 pkt Documented by: [id number] Admin: 11/28/18 19:35 Dose: 1 pkt Documented by: [id number] Spironolactone (Aldactone) 50 mg PO QAM [facility] Stop: 12/29/18 08:59 Last Admin: 11/30/18 07:37 Dose: 50 mg Documented by: [id number] Admin: 11/29/18 08:22 Dose: 50 mg Documented by: [id number] Medical Decision Making Differential Diagnosis Differential diagnosis includes: vasovagal event, infection, hypoglycemia, electrolyte abnormalities, cardiac sources, intracerebral event, toxicologic, neurologic, as well as others were entertained. Medical Records Attestation: I reviewed the patient's medical records. Home Medications Current Medication List: was personally reviewed by me Laboratory Data Attestation: I reviewed the patient's lab results. Result diagrams: 11/30/18 05:55 11/30/18 05:55 Lab Results 11/28/18 11/28/18 11/28/18 Range/Units 11:44 11:44 13:22 WBC 6.70 (4.8-10.8) K/uL RBC 3.29 L (4.2-5.4) M/uL Hgb 10.4 L (12.0-16.0) g/dL Hct 31.5 L (37-47) % MCV 95.7 (80-100) fL MCH 31.6 (25-34) pg MCHC 33.0 (32-36) g/dL RDW Std Deviation 46.4 H (36.4-46.3) fL RDW Coeff of Duy 13.3 (11.5-14.5) % Plt Count 154 (130-400) K/uL MPV 11.6 H (7.4-10.4) fL Immature Gran % (Auto) 0.3 % Neut % (Auto) 76.7 % Lymph % (Auto) 14.2 % [place] % (Auto) 7.6 % Eos % (Auto) 0.9 % Baso % (Auto) 0.3 % Immature Gran # (Auto) 0.02 (0.00-0.02) K/uL Neut # (Auto) 5.14 (1.4-6.5) K/uL Lymph # (Auto) 0.95 L (1.2-3.4) K/uL [place] # (Auto) 0.51 (0.11-0.59) K/uL Eos # (Auto) 0.06 (0-0.5) K/uL Baso # (Auto) 0.02 (0-0.2) K/uL Sodium 139 (136-145) mmol/L Potassium Cancelled (3.5-5.1) mmol/L Chloride 107 (98-107) mmol/L Carbon Dioxide 28 (21-32) mmol/L Anion Gap 4.0 (3-11) BUN 54 H (7-18) mg/dl Creatinine 1.57 H (0.6-1.2) mg/dl Est Cr Clr Drug Dosing 30.3 ml/min Est GFR ( Amer) 36.5 Est GFR (Non-Af Amer) 31.5 BUN/Creatinine Ratio 34.6 H (10-20) Glucose 207 H (70-99) mg/dl Calcium 9.1 (8.5-10.1) mg/dl Magnesium Cancelled (1.8-2.4) mg/dl Total Bilirubin 0.4 (0.2-1) mg/dl AST Cancelled (15-37) U/L ALT 32 (12-78) U/L Alkaline Phosphatase 43 L (45-117) U/L Troponin I < 0.015 (0-0.045) ng/ml Total Protein 6.2 L (6.4-8.2) gm/dl Albumin 3.4 (3.4-5.0) gm/dl Globulin 2.8 (2.5-4.0) gm/dl Albumin/Globulin Ratio 1.2 (0.9-2) TSH 0.843 (0.300-4.500) uIu/ml Urine Color Urine Appearance (Clear) Urine pH (4.5-7.5) Ur Specific [place] (1.000-1.030) Urine Protein (Negative) Urine Glucose (UA) (Negative) Urine Ketones (Negative) Urine Blood (Negative) Urine Nitrite (Negative) Urine Bilirubin (Negative) Urine Urobilinogen (Negative) Ur Leukocyte Esterase (Negative) 11/28/18 11/28/18 Range/Units 13:30 14:58 WBC (4.8-10.8) K/uL RBC (4.2-5.4) M/uL Hgb (12.0-16.0) g/dL Hct (37-47) % MCV (80-100) fL MCH (25-34) pg MCHC (32-36) g/dL RDW Std Deviation (36.4-46.3) fL RDW Coeff of Duy (11.5-14.5) % Plt Count (130-400) K/uL MPV (7.4-10.4) fL Immature Gran % (Auto) % Neut % (Auto) % Lymph % (Auto) % [place] % (Auto) % Eos % (Auto) % Baso % (Auto) % Immature Gran # (Auto) (0.00-0.02) K/uL Neut # (Auto) (1.4-6.5) K/uL Lymph # (Auto) (1.2-3.4) K/uL [place] # (Auto) (0.11-0.59) K/uL Eos # (Auto) (0-0.5) K/uL Baso # (Auto) (0-0.2) K/uL Sodium (136-145) mmol/L Potassium 4.3 (3.5-5.1) mmol/L Chloride (98-107) mmol/L Carbon Dioxide (21-32) mmol/L Anion Gap (3-11) BUN (7-18) mg/dl Creatinine (0.6-1.2) mg/dl Est Cr Clr Drug Dosing ml/min Est GFR ( Amer) Est GFR (Non-Af Amer) BUN/Creatinine Ratio (10-20) Glucose (70-99) mg/dl Calcium (8.5-10.1) mg/dl Magnesium 2.0 (1.8-2.4) mg/dl Total Bilirubin (0.2-1) mg/dl AST 19 (15-37) U/L ALT (12-78) U/L Alkaline Phosphatase (45-117) U/L Troponin I (0-0.045) ng/ml Total Protein (6.4-8.2) gm/dl Albumin (3.4-5.0) gm/dl Globulin (2.5-4.0) gm/dl Albumin/Globulin Ratio (0.9-2) TSH (0.300-4.500) uIu/ml Urine Color Yellow Urine Appearance Clear (Clear) Urine pH 7.0 (4.5-7.5) Ur Specific [place] 1.011 (1.000-1.030) Urine Protein Negative (Negative) Urine Glucose (UA) Negative (Negative) Urine Ketones Negative (Negative) Urine Blood Negative (Negative) Urine Nitrite Negative (Negative) Urine Bilirubin Negative (Negative) Urine Urobilinogen Negative (Negative) Ur Leukocyte Esterase Negative (Negative) Imaging Data Radiologist's Impression: Radiology results as stated below per my review and the radiologist's interpretation: CT cervical spine wo con CT DOSE: 1060.75 mGy.cm CLINICAL HISTORY: 78 years-old Female with syncope w [facility]. Acute sequelae with neck injury COMPARISON: CT head of same day TECHNIQUE: Multiple axial CT images of the cervical spine were obtained without contrast. A dose lowering technique was utilized adhering to the principles of ALARA. FINDINGS: Discectomy changes with anterior plate and screw fusion at C5-C6. Satisfactory alignment without evidence of acute hardware complication. Mild multilevel intervertebral disc space narrowing. Moderate multilevel spondylitic spurring with moderate facet arthrosis. 3 mm anterolisthesis C7 on T1 is likely on a degenerative basis. Partially calcified pannus posterior to the odontoid process. No acute fracture or subluxation identified. Evaluation of the central canal and neuroforamina is better assessed by MRI. Nonspecific sclerotic appearance of the left mastoid distribution. No pneumothorax. Calcified plaque of the carotid bulbs. IMPRESSION: No acute fracture or subluxation. The above report was generated using voice recognition software. It may contain grammatical, syntax or spelling errors. Electronically signed by: Colby White M.D. 11/28/2018 12:56 PM XR chest 1V portable CLINICAL HISTORY: Chest pain and syncope. COMPARISON STUDY: Chest radiograph April 22, 2018. FINDINGS: There are median sternotomy wires. Mild cardiomegaly is noted without evidence for pulmonary edema. There is no consolidation. No pneumothorax or pleural effusion is noted. Anterior cervical spine fusion is incidentally noted. IMPRESSION: No acute cardiopulmonary findings. Electronically signed by: Zaheer Marquez M.D. 11/28/2018 12:[address] OF THE HEAD WITHOUT CONTRAST CLINICAL HISTORY: syncope w [facility] COMPARISON STUDY: Head CT April 22, 2018. TECHNIQUE: Helical axial images of the head were obtained without IV contrast. Automated exposure control was utilized for the study. A dose lowering technique was utilized adhering to the principles of ALARA. FINDINGS: No acute intracranial hemorrhage, midline shift or mass effect is present. The ventricular system is unremarkable. The basilar cisterns are patent. No extra-axial collections are present. There are no findings to suggest acute dural sinus thrombosis or acute territorial infarct. No significant calvarial abnormalities are present. Visualized portions of the sinuses and mastoid air cells are clear. IMPRESSION: 1. No acute intracranial findings. 2. No calvarial fracture. Small posterior scalp contusion. Electronically signed by: Zaheer Marquez M.D. 11/28/2018 12:48 PM ECG Data Attestation: I personally reviewed and interpreted this ECG as follows: Indication: chest pain and syncope Rate (beats per minute): 60 Rhythm: normal sinus Findings: + nonspecific-ST abn (Lateral); no ectopy Comparison ECG Date: from (22-APR-2018) Change: the following changes noted (less pronounced ST abn) Blood Pressure Blood Pressure Findings: Elevated blood pressure MDM Narrative This pt was evaluated and appeared to be in no distress. IV access was obtained and lab work was drawn. Pt was placed on the engine monitor. IV access was obtained and lab work was drawn. PT was hydrated with NSS. CT head and cspine were obtained and are negative for acute process. EKG confirms a NSR with nonspecific ST abnl. Pt's lab work is reassuring. Given the nature of the unexplained syncope with CHI, pt will be evaluated by the hospitalist for further management. Impression & Plan Syncope, CHI (closed head injury) Discharge Plan Visit Data *Final* Discharge Date/Time: 11/28/18 17:30 Chief Complaint: Syncope Other Complaint: Chest Pain ED Provider: Jovita Leyva Discharge Problem: Syncope, CHI (closed head injury) Patient Disposition: Admitted As Inpatient Condition: Good Discharge Instructions Interventions: ED Discharge Assessment Last Done: 11/28/18 17:30 Discharge Problem: Syncope Qualifiers: Syncope type: unspecified Qualified Code(s): R55 - Syncope and collapse CHI (closed head injury) Qualifiers: Encounter type: initial encounter Qualified Code(s): S09.90XA - Unspecified inj ury of head, initial encounter The scribe's documentation has been prepared under my direction and personally reviewed by me in its entirety. I confirm that the note above accurately reflec ts all work, treatment, procedures, and medical decision making performed by me.
[2018-11-28] MEDS ORDERED: GLUCAGON FOR INJ 1 MG VIAL SQ PRN (18:11)
[2018-11-28] MEDS ORDERED: HydrALAZINE HCL 20 MG/ML VIAL IV PRN (18:25)
[2018-11-28] MEDS: NYSTATIN CR 15 GM TUBE EXT SCH (19:31)
[2018-11-28] MEDS: ATORVASTATIN 40 MG TAB PO SCH (19:34)
[2018-11-28] MEDS: METOCLOPRAMIDE HCL 5 MG TABLET PO SCH (19:35)
[2018-11-28] MEDS: ISOSORBIDE MONO EXTENDED REL 60 MG TABCR PO SCH (19:35)
[2018-11-28] MEDS: GABAPENTIN 100 MG CAP PO SCH (19:35)
[2018-11-28] MEDS: CARVEDILOL 25 MG TAB PO SCH (19:35)
[2018-11-28] MEDS: HydrALAZINE TAB 50 MG TAB PO SCH (19:35)
[2018-11-28] MEDS: DOCUSATE SODIUM 100 MG CAP PO SCH (19:35)
[2018-11-28] MEDS: PSYLLIUM 58.6% POWDER PACKET PO SCH (19:35)
[2018-11-28] MEDS: INSULIN GLARGINE SOLOSTAR 100 UNITS/ML 3 ML PEN SQ SCH (20:46)
[2018-11-28] MEDS: INSULIN ASPART 100 UNITS/ML 3 ML PEN SC SCH (20:46)
[2018-11-28] MEDS ORDERED: CALCIUM CITRATE 950 MG TAB PO SCH (21:00)
[2018-11-29] MEDS: ISOSORBIDE MONO EXTENDED REL 60 MG TABCR PO SCH ×2 (08:20→20:50)
[2018-11-29] MEDS: NYSTATIN CR 15 GM TUBE EXT SCH ×2 (08:20→20:50)
[2018-11-29] MEDS: HydrALAZINE TAB 50 MG TAB PO SCH ×3 (08:21→20:48)
[2018-11-29] MEDS: ASPIRIN 81 MG ECTAB PO SCH (08:21)
[2018-11-29] MEDS: SPIRONOLACTONE 25 MG TAB PO SCH (08:22)
[2018-11-29] MEDS: CLOPIDOGREL BISULFATE 75 MG TAB PO SCH (08:22)
[2018-11-29] MEDS: PANTOprazole 40 MG TAB PO SCH (08:22)
[2018-11-29] MEDS: BUMETANIDE 1 MG TAB PO SCH (08:22)
[2018-11-29] MEDS: CARVEDILOL 25 MG TAB PO SCH ×2 (08:22→20:49)
[2018-11-29] MEDS: METOCLOPRAMIDE HCL 5 MG TABLET PO SCH ×5 (08:23→20:47)
[2018-11-29] MEDS: INSULIN ASPART 100 UNITS/ML 3 ML PEN SC SCH ×4 (08:24→20:47)
[2018-11-29 08:34] LABS: Mean Corpuscular Hgb Conc 32.3 g/dL (32-36); Mean Corpuscular Volume 98.7 fL (80-100); Mean Platelet Volume 11.3 fL (7.4-10.4); Platelet Count 151 K/uL (130-400); RDW Coefficient of Variation 13.5 % (11.5-14.5); RDW Standard Deviation 48.3 fL (36.4-46.3); Red Blood Count 3.14 M/uL (4.2-5.4); White Blood Count 6.65 K/uL (4.8-10.8)
[2018-11-29 08:59] LABS: Albumin Level 3.2 gm/dl (3.4-5.0); BUN Creatinine Ratio 29.4 (10-20); Calcium 9.4 mg/dl (8.5-10.1); Creatinine Clr Calc Pharmacy 31.2 ml/min; Potassium 4.5 mmol/L (3.5-5.1)
[2018-11-29 09:02] LABS: Albumin Globulin Ratio 1.2 (0.9-2); Bilirubin,Total 0.3 mg/dl (0.2-1); Globulin 2.6 gm/dl (2.5-4.0); Total Protein 5.9 gm/dl (6.4-8.2)
[2018-11-29] MEDS: FERROUS SULFATE 325 MG TAB PO SCH (11:35)
[2018-11-29] MEDS: MULTIVITAMIN TAB PO SCH (11:36)
[2018-11-29] MEDS: POTASSIUM CHLORIDE 10 MEQ TABCR PO SCH (11:36)
[2018-11-29] MEDS: ACETAMINOPHEN 325 MG TAB PO PRN (11:40)
--- NOTE | 2018-11-29 12:29 | Cardiology Consultation ---
Date of Consultation November 29, 2018 Assessment & Plan (1) Syncope: The cause of her syncope is unknown although it does sound like an arrhythmia. It is possible it was simply hypotension from standing (such as a vagal event) but this is the first when she is ever had so that would be quite u nusual and she tells me she was not standing there a long time (a few minutes). I am concerned that this could be an arrhythmia, possibly bradycardia arrhythmia since she had bradycardia in April which was corrected by medication adjustments. I would keep her on telemetry while she is in the hospital, if she goes home in the near future without a diagnosis I would plan a 30-day event monitor as an outpatient. Since she had a similar event without syncope several weeks ago this may be fruitful. (2) Chest pain: Her chest discomfort sounds like angina to her, perhaps that is consistent with hypotension and poor myocardial perfusion. I suggested she may need a stress test, she does not want to have a stress test and perhaps we can leave that up to Dr. Barlow. History of Present Illness Attending Physician: Yonatan Gonzalez, History of Present Illness This is a 77-year-old woman who follows with Drs. Barlow in the office and has a history of coronary artery disease including bypass surgery in 1999, PCI in 2010, peripheral vascular disease including intervention in various peripheral vessels, carotid disease, diabetes mellitus, hyperlipidemia and bradycardia. She was hospitalized in April 2018 for bradycardia and her medications were adjusted. She presents now with chest discomfort and a fall. Evidently she awoke on the morning of November 28, 2018, had central chest discomfort and then while talking to her daughter on the telephone suddenly fell backwards and lost consciousness. In the emergency room but CT scan was negative, troponin is negative x3 and electrocardiogram showed no acute changes. At the time of my evaluation she describes the same sequence of events to me. She was standing by the phone, she developed substernal chest heaviness and discomfort that was not severe, she felt that she was sweaty and clammy and then she told her daughter that she was having chest discomfort who recommended she call somebody else and then the next thing she knew she was on the floor. She recalls having a similar episode several weeks ago without loss of consciousness. She does have exertional angina does not think it is changing, the chest discomfort with her angina feels similar. Allergies Allergy/AdvReac Type Severity Reaction Status Date / Time Sulfa (Sulfonamide Allergy Intermediate RASH/PRURIT Verified 11/28/18 11:58 Antibiotics) IS omeprazole AdvReac Intermediate interacts Verified 11/28/18 11:58 w/ clopidigrol chlorpropamide AdvReac Mild N/V Verified 11/28/18 11:58 ARI Inhibitors AdvReac Unknown AVOIDS Verified 11/28/18 11:58 SECONDARY TO "OTHER MEDICATIONS" PER PT Home Medications Home Medications Medication Instructions Recorded Confirmed Type Citracal Plus Magnesium 1 tab PO .Q OTHER HS 04/23/18 11/28/18 History Glucagon Emergency Kit (human) 1 dose SUBCUT UD PRN 04/23/18 11/28/18 History albuterol sulfate 2 puff INHALATION QID PRN 04/23/18 11/28/18 History albuterol sulfate 2.5 mg INHALATION TID PRN 04/23/18 11/28/18 History aspirin 81 mg PO QAM 04/23/18 11/28/18 History atorvastatin 80 mg PO HS 04/23/18 11/28/18 History cinnamon bark [Cinnamon] 1,000 mg PO DAILY PRN 04/23/18 11/28/18 History clopidogrel 75 mg PO QAM 04/23/18 11/28/18 History docusate sodium 100 mg PO HS 04/23/18 11/28/18 History fluticasone propionate [Flonase 1 spray INTRANASAL BID PRN 04/23/18 11/28/18 History Allergy Relief] gabapentin 200 mg PO HS 04/23/18 11/28/18 History hydralazine 100 mg PO TID 04/23/18 11/28/18 History isosorbide mononitrate 120 mg PO BID 04/23/18 11/28/18 History metoclopramide HCl 5 mg PO ACHS 04/23/18 11/28/18 History multivitamin [Multiple Vitamins] 1 tab PO QDL 04/23/18 11/28/18 History nitroglycerin [Nitrostat] 0.4 mg SUBLINGUAL UD PRN 04/23/18 11/28/18 History potassium chloride 10 meq PO QDL 04/23/18 11/28/18 History tramadol 50 - 100 mg PO BID PRN 04/23/18 11/28/18 History bumetanide 2 mg PO QAM 11/28/18 11/28/18 History carvedilol 25 mg PO BID 11/28/18 11/28/18 History insulin aspart U-100 [Novolog 7 unit SUBCUT TID 11/28/18 11/28/18 History Flexpen U-100 Insulin] insulin glargine [Basaglar KwikPen 30 unit SUBCUT HS 11/28/18 11/28/18 History U-100 Insulin] iron 18 mg PO QDL 11/28/18 11/28/18 History nystatin 1 applic TOPICAL BID 11/28/18 11/28/18 History pantoprazole 40 mg PO QAM 11/28/18 11/28/18 History psyllium husk [Metamucil] 1 tbsp PO HS 11/28/18 11/28/18 History spironolactone 50 mg PO QAM 11/28/18 11/28/18 History Patient History Medical History Obesity (BMI 30-39.9) Syncope (Acute) Hyperlipidemia Peripheral artery disease Renal artery stenosis Anemia Asthma GERD (gastroesophageal reflux disease) CAD (coronary artery disease) Diabetes (Chronic) Hypertension (Chronic) CHF (congestive heart failure) Chronic kidney disease, stage 3 (moderate) Anemia Asthma CAD (coronary artery disease) CKD (chronic kidney disease) Diabetes mellitus GERD (gastroesophageal reflux disease) Hyperlipidemia Hypertension Surgical History H/O heart bypass surgery (Resolved) History of heart artery stent (Resolved) History of coronary artery bypass graft History of coronary artery stent placement Social History Communication Ability: Effective Beliefs That Will Affect Care: Episcopal Episcopal Beliefs: Restorationist marital status: / Current Living Situation: Alone Feels Safe at Home: Yes Smoking Status: Never smoker Second Hand Exposure: No Hx Alcohol Use: No Hx Substance Use: No Physical Exam Physical Exam: Constitutional: Alert, cooperative and in no distress. HEENT: Unremarkable Neck: No jugular venous distention, carotid pulses are normal and equal bilaterally without bruits. Pulmonary: Clear to auscultation bilaterally. Cardiac: Regular rhythm with no murmur, gallop or rub. Abdomen: Soft, nontender with normal bowel sounds. Extremities: No edema. Distal pulses intact. Neurologic: No focal findings. Gait is steady. Skin: No rash, ecchymoses or petechiae. Results & Data Vital Signs (Past 12 Hours) Vital Signs Temp Pulse Resp BP Pulse Ox 11/29/18 10:51 36.7 C 94 H 16 121/70 94 11/29/18 07:25 36.8 C 60 16 151/64 H 97 11/29/18 04:39 36.7 C 64 22 141/61 H 96 Diagnostic Findings Electrocardiogram: Sinus rhythm, normal CO, right bundle branch block Telemetry: Normal sinus rhythm, no arrhythmia Echocardiogram: Pending (1) Syncope Syncope type: unspecified Qualified Code(s): R55 - Syncope and collapse
--- NOTE | 2018-11-29 13:58 | Hospitalist Progress Note ---
Date of Service November 29, 2018 Assessment & Plan (1) Syncope: no episodes while admitted, continue on tele, thus far is sinus rhythm, borderline sinu bradycardia in 50's follow up on echocardiogram results troponin negative x 3 sets, no evidence of ACS, no further chest pain check orthostatic vitals have patient ambulate in the martini if no syncope and no arrhythmias through tomorrow morning then will d/c home consider Holter monitor at home for 30 days to try to capture arrhythmia (2) CHI (closed head injury): -CT of the head is negative, no laceration -Tylenol and tramadol available for pain relief -Patient feels fine today, no headache (3) CHF (congestive heart failure): -Chronic systolic and diastolic -Continue ASA 81 mg daily, Bumex 2 mg p.o. qam, spironolactone 25 mg QAM, carvedilol 25 mg BID, hydralazine 100 mg TID, Imdur at 120 mg p.o. BID -Check 2D echo, results still pending examines euvolemic today (4) Renal artery stenosis: -Continue antihypertensives as above (5) Hyperlipidemia: -Continue atorvastatin 80 mg p.o. HS (6) Hypertension: -Continue antihypertensives as above (7) Chronic kidney disease, stage 3 (moderate): -Creatinine stable at 1.55 this morning (8) CAD (coronary artery disease): -Continue medications as above -continue Plavix, aspirin and statin therapy no evidence of ACS with chest pain yesterday (9) History of heart artery stent: (10) H/O heart bypass surgery: (11) Peripheral artery disease: - noted (12) Anemia: -Hemoglobin stable at 10 this morning (13) Asthma: -Stable continue inhalers albuterol as needed (14) Diabetes: -Continue Lantus 30 units HS -ISS with Accu-Cheks ACHS (15) GERD (gastroesophageal reflux disease): -Continue Reglan ACHS, pantoprazole 40 mg nightly (16) Obesity (BMI 30-39.9): -Diet and exercise to be encouraged upon discharge -BMI 34.3 (17) Chronic knee pain: -May use tramadol for pain relief (18) DVT prophylaxis: -Teds, SCDs, Plavix and aspirin Subjective patient feels well today, no issues over night, no further chest pain, no syncope reviewed labs, troponin negative, no signs of ACS discussed with Dr. Salinas, some concerns for arrhythmia causing syncope h/o bradycardia and so pauses or worsening bradycardia would be most plausible no episodes on the monitor as of now, however, no syncope or presyncope symptoms while here patient wanting to go home discussed with her that we should watch her rates and rhythm a little longer, she agrees discussed that if we find nothing then could arrange for Holter monitor reviewed labs, Cr is at baseline, electrolytes stable, Hb stable will have PT walk with her in the hallway updated family at the bedside Review of Systems Review of Systems: All systems reviewed & are unremarkable except as noted in HPI & below Constitutional: no fever and no sweats Respiratory: no cough and no dyspnea Cardiovascular: no chest pain, no syncope and no edema Gastrointestinal: no abdominal pain, no nausea, no vomiting, no constipation and no diarrhea/loose stools Physical Exam Constitutional: WD/WN, vitals as above Eyes: PERRL, conjunctivae normal, anicteric sclerae ENMT: external ear and nose normal, oropharynx normal Neck: trachea midline, no thyromegaly Respiratory: normal respiratory effort, lungs clear to auscultation Cardiovascular: RRR, no murmur, no edema Gastrointestinal (Abdomen): normal bowel sounds, soft, nontender, no hepatosplenomegaly Musculoskeletal: no cyanosis or clubbing, extremities motor strength 5/5 Skin: no rashes, warm and dry Neurologic: patellar DTR's 2+ bilat, sensation intact and PERRL, EOMI, accommodation nl, no face palsy, no dysarthria Psychiatric: A+Ox3, euthymic affect Lymphatic: no cervical or axillary lymphadenopathy Results & Data Vital Signs (Past 12 Hours) Vital Signs Temp Pulse Resp BP Pulse Ox 11/29/18 10:51 36.7 C 94 H 16 121/70 94 11/29/18 07:25 36.8 C 60 16 151/64 H 97 11/29/18 04:39 36.7 C 64 22 141/61 H 96 Laboratory Results Laboratory Results - last 24 hr 11/28/18 11/28/18 11/28/18 14:58 18:49 20:39 WBC RBC Hgb Hct MCV MCH MCHC RDW Std Deviation RDW Coeff of Duy Plt Count MPV Sodium Potassium 4.3 Chloride Carbon Dioxide Anion Gap BUN Creatinine Est Cr Clr Drug Dosing Est GFR ( Amer) Est GFR (Non-Af Amer) BUN/Creatinine Ratio Glucose POC Glucose 238 H 297 H Calcium Magnesium 2.0 Total Bilirubin AST 19 ALT Alkaline Phosphatase Troponin I Total Protein Albumin Globulin Albumin/Globulin Ratio 11/28/18 11/29/18 11/29/18 21:39 07:44 08:09 WBC 6.65 RBC 3.14 L Hgb 10.0 L Hct 31.0 L MCV 98.7 MCH 31.8 MCHC 32.3 RDW Std Deviation 48.3 H RDW Coeff of Duy 13.5 Plt Count 151 MPV 11.3 H Sodium Potassium Chloride Carbon Dioxide Anion Gap BUN Creatinine Est Cr Clr Drug Dosing Est GFR ( Amer) Est GFR (Non-Af Amer) BUN/Creatinine Ratio Glucose POC Glucose 125 H Calcium Magnesium Total Bilirubin AST ALT Alkaline Phosphatase Troponin I < 0.015 Total Protein Albumin Globulin Albumin/Globulin Ratio 11/29/18 11/29/18 11/29/18 08:09 11:18 12:59 WBC RBC Hgb Hct MCV MCH MCHC RDW Std Deviation RDW Coeff of Duy Plt Count MPV Sodium 143 Potassium 4.5 Chloride 110 H Carbon Dioxide 27 Anion Gap 6.0 BUN 46 H Creatinine 1.55 H Est Cr Clr Drug Dosing 31.2 Est GFR ( Amer) 37.0 Est GFR (Non-Af Amer) 32.0 BUN/Creatinine Ratio 29.4 H Glucose 128 H POC Glucose 270 H Calcium 9.4 Magnesium Total Bilirubin 0.3 AST 14 L ALT 27 Alkaline Phosphatase 39 L Troponin I < 0.015 Total Protein 5.9 L Albumin 3.2 L Globulin 2.6 Albumin/Globulin Ratio 1.2 Medications Administered Current Inpatient Medications Acetaminophen (Tylenol) 650 mg PO Q4H PRN PRN Reason: Moderate Pain Stop: 12/28/18 15:45 Last Admin: 11/29/18 11:40 Dose: 650 mg Documented by: Albuterol (Ventolin 0.083% 2.5mg/3ml) 2.5 mg INH TID PRN PRN Reason: Shortness Of Breath Stop: 12/28/18 15:50 Albuterol (Ventolin Hfa) 2 puffs INH QID PRN PRN Reason: Shortness Of Breath Or Wheezing Stop: 12/28/18 15:50 Aspirin ([facility]rin [facility]ab) [facility] Stop: 12/29/18 08:59 Last Admin: 11/29/18 08:21 Dose: 81 mg Documented by: Atorvastatin Calcium (Lipitor) 80 mg PO [facility] Stop: 12/28/18 20:59 Last Admin: 11/28/18 19:34 Dose: 80 mg Documented by: Bumetanide (Bumex) 2 mg PO QAM [facility] Stop: 12/29/18 08:59 Last Admin: 11/29/18 08:22 Dose: 2 mg Documented by: Calcium Citrate (Citracal) 950 mg PO Q2D@2100 [facility] Stop: 12/28/18 20:59 Last Admin: 11/28/18 19:34 Dose: 950 mg Documented by: Carvedilol (Coreg) 25 mg PO BID [facility] Stop: 12/28/18 20:59 Last Admin: 11/29/18 08:22 Dose: 25 mg Documented by: Clopidogrel Bisulfate (Plavix) [facility] Stop: 12/29/18 08:59 Last Admin: 11/29/18 08:22 Dose: 75 mg Documented by: Dextrose (Dextrose 50%) 25 - 50 ml IV UD PRN; Protocol PRN Reason: Hypoglycemia Protocol Stop: 12/28/18 18:10 Docusate Sodium (Colace) 100 mg PO [facility] Stop: 12/28/18 20:59 Last Admin: 11/28/18 19:35 Dose: 100 mg Documented by: Ferrous Sulfate (Feosol) 325 mg PO QDL [facility] Stop: 12/29/18 11:29 Last Admin: 11/29/18 11:35 Dose: 325 mg Documented by: Fluticasone Propionate (Flonase) 1 sprays NA BID PRN PRN Reason: NASAL SYMPTOMS Stop: 12/28/18 15:50 Gabapentin (Neurontin) 200 mg PO [facility] Stop: 12/28/18 20:59 Last Admin: 11/28/18 19:35 Dose: 200 mg Documented by: Glucagon (Glucagen) 1 mg SQ UD PRN; Protocol PRN Reason: Hypoglycemia Protocol Stop: 12/28/18 18:10 Glucose (Dex4 Glucose) 4 - 8 tabs PO UD PRN; Protocol PRN Reason: Hypoglycemia Protocol Stop: 12/28/18 18:10 Glucose (Glucose 40%) 15 - 30 gm PO UD PRN; Protocol PRN Reason: Hypoglycemia Protocol Stop: 12/28/18 18:10 Hydralazine HCl (Apresoline) 100 mg PO TID [facility] Stop: 12/28/18 20:59 Last Admin: 11/29/18 12:55 Dose: 100 mg Documented by: Hydralazine HCl (Hydralazine Hcl) 5 mg IV Q4H PRN PRN Reason: SBP > 180 or DBP > 110 Stop: 12/28/18 18:24 Insulin Aspart (Novolog Flexpen) 0 units SC ACHS [facility] Stop: 12/28/18 20:59 Last Admin: 11/29/18 12:52 Dose: 8 units Documented by: Insulin Glargine (Lantus Solostar Pen) 30 units SQ HS [facility] Stop: 12/28/18 20:59 Last Admin: 11/28/18 20:46 Dose: 30 units Documented by: Isosorbide Mononitrate (Imdur Extended Rel) 120 mg PO BID [facility] Stop: 12/28/18 20:59 Last Admin: 11/29/18 08:20 Dose: 120 mg Documented by: Metoclopramide HCl (Reglan) 5 mg PO ACHS [facility] Stop: 12/28/18 20:59 Last Admin: 11/29/18 12:51 Dose: 5 mg Documented by: Miscellaneous (Carbohydrates For Hypoglycemia) 15 - 30 gm PO UD PRN PRN Reason: Hypoglycemia Treatment Stop: 12/28/18 18:10 Multivitamins (Multivitamin Tab) 1 tab PO QDL [facility] Stop: 12/29/18 11:29 Last Admin: 11/29/18 11:36 Dose: 1 tab Documented by: Nitroglycerin (Nitrostat) 0.4 mg SL UD PRN PRN Reason: Chest Pain Stop: 12/28/18 15:50 Nystatin (Nystatin) 1 appln EXT BID [facility] Stop: 12/28/18 20:59 Last Admin: 11/29/18 08:20 Dose: Not Given Documented by: Ondansetron HCl (Zofran) 4 mg IV Q4H PRN PRN Reason: Nausea And Vomiting Stop: 12/28/18 15:45 Pantoprazole Sodium (Protonix) 40 mg PO QAM [facility] Stop: 12/29/18 08:59 Last Admin: 11/29/18 08:22 Dose: 40 mg Documented by: Potassium Chloride (Klor-Con M10) 10 meq PO QDL [facility] Stop: 12/29/18 11:29 Last Admin: 11/29/18 11:36 Dose: 10 meq Documented by: Psyllium Hydrophilic Mucilloid (Metamucil) 1 pkt PO HS [facility] Stop: 12/28/18 20:59 Last Admin: 11/28/18 19:35 Dose: 1 pkt Documented by: Spironolactone (Aldactone) 50 mg PO QAM [facility] Stop: 12/29/18 08:59 Last Admin: 11/29/18 08:22 Dose: 50 mg Documented by: Tramadol HCl (Ultram) 50 mg PO BID PRN PRN Reason: Pain Stop: 12/28/18 15:50 PG Care Time/CCT Total # of Minutes Spent Total Time Spent with Patient: Total time spent is greater than 50% in coordinat ion of care (as documented) at patient's floor/unit and/or counseling patient: (1) Syncope Syncope type: unspecified Qualified Code(s): R55 - Syncope and collapse (2) CHI (closed head injury) Encounter type: initial encounter Qualified Code(s): S09.90XA - Unspecified injury of head, initial encounter
[2018-11-29] MEDS: INSULIN GLARGINE SOLOSTAR 100 UNITS/ML 3 ML PEN SQ SCH (20:46)
[2018-11-29] MEDS: PSYLLIUM 58.6% POWDER PACKET PO SCH (20:48)
[2018-11-29] MEDS: GABAPENTIN 100 MG CAP PO SCH (20:48)
[2018-11-29] MEDS: DOCUSATE SODIUM 100 MG CAP PO SCH (20:51)
[2018-11-29] MEDS: ATORVASTATIN 40 MG TAB PO SCH (20:51)
[2018-11-30 06:23] LABS: Hematocrit (blood only) 30.4 % (37-47); Hemoglobin 9.8 g/dL (12.0-16.0); Mean Corpuscular Hgb Conc 32.2 g/dL (32-36); Mean Corpuscular Volume 98.1 fL (80-100); Mean Platelet Volume 11.4 fL (7.4-10.4); Platelet Count 137 K/uL (130-400); RDW Coefficient of Variation 13.4 % (11.5-14.5); RDW Standard Deviation 47.7 fL (36.4-46.3); White Blood Count 6.58 K/uL (4.8-10.8)
[2018-11-30 06:53] LABS: Albumin Level 3.2 gm/dl (3.4-5.0); BUN Creatinine Ratio 34.6 (10-20); Calcium 9.2 mg/dl (8.5-10.1); Creatinine Clr Calc Pharmacy 33.5 ml/min; Est GFR (African American) 39.5; Est GFR (Non-African American) 34.1; Potassium 4.2 mmol/L (3.5-5.1)
[2018-11-30 06:56] LABS: Albumin Globulin Ratio 1.2 (0.9-2); Bilirubin,Total 0.3 mg/dl (0.2-1); Globulin 2.7 gm/dl (2.5-4.0); Total Protein 5.9 gm/dl (6.4-8.2)
[2018-11-30] MEDS: ASPIRIN 81 MG ECTAB PO SCH (07:36)
[2018-11-30] MEDS: PANTOprazole 40 MG TAB PO SCH (07:37)
[2018-11-30] MEDS: HydrALAZINE TAB 50 MG TAB PO SCH (07:37)
[2018-11-30] MEDS: METOCLOPRAMIDE HCL 5 MG TABLET PO SCH ×2 (07:37→10:49)
[2018-11-30] MEDS: SPIRONOLACTONE 25 MG TAB PO SCH (07:37)
[2018-11-30] MEDS: BUMETANIDE 1 MG TAB PO SCH (07:38)
[2018-11-30] MEDS: ISOSORBIDE MONO EXTENDED REL 60 MG TABCR PO SCH (07:38)
[2018-11-30] MEDS: CLOPIDOGREL BISULFATE 75 MG TAB PO SCH (07:38)
[2018-11-30] MEDS: CARVEDILOL 25 MG TAB PO SCH (07:38)
[2018-11-30] MEDS: NYSTATIN CR 15 GM TUBE EXT SCH (07:39)
[2018-11-30] MEDS: INSULIN ASPART 100 UNITS/ML 3 ML PEN SC SCH (08:32)
[2018-11-30] MEDS: ACETAMINOPHEN 325 MG TAB PO PRN (08:35)
--- NOTE | 2018-11-30 09:13 | Discharge Summary ---
Date of Service November 30, 2018 Admission HPI Per Admitting Provider This is a 78 yo F with PMHx of chronic diastolic CHF, sinus bradycardia, hx bypass surgery, anemia, renal artery stenosis, CKD stage III, asthma who presents after an episode of syncope. Patient was at home this morning and had gotten up from a sitting position to walk to a few steps to her telephone and while she was standing, she quickly got lightheaded, diaphoretic, dizzy and fell to the floor. She believes she was on the floor for about 20 minutes until her son came to get her, as her daughter had called him. She reports hitting the back of her head however has no open skin wound. She denies headache and believes LOC was only for a few seconds. She does feel sore in her back and her hips bilaterally but has chronic pain in these areas. She denies any headache. This event was unwitnessed as she lives at home alone. Patient typically uses a cane for ambulation assistance, however during this instance she was just holding onto the wall. Patient also has a walker with a seat at home. Patient reports taking all her morning medications today, ate breakfast and drank some water this morning. Admission Exam Per Admitting Provider General: awake, alert, no apparent distress, + obese Head: Normocephalic, atraumatic, + posterior cranial contusion, no laceration. ENT: PERRL, EOMI, no pharyngeal exudate, mucous membranes moist Chest: Clear to auscultation, on room air, no adventitious breath sounds Cardiac: Regular rate and rhythm, no murmur, no JVD, normal peripheral pulses, good capillary refill Abdominal: NABS x 4 quadrants, soft, nontender to palpation, no rebound, guarding or tenderness Extremities: Normal inspection, no peripheral edema or erythema, calfs nontender to palpation Psych: Normal mood and affect Neuro: AAO x 3, strength intact bilaterally and related 5/5, no motor deficits, speech is clear, no peripheral sensory deficits Principal Diagnosis Syncope Discharge Exam Constitutional WD/WN, vitals as above Eyes PERRL, conjunctivae normal, anicteric sclerae ENMT external ear and nose normal, oropharynx normal Neck trachea midline, no thyromegaly Respiratory normal respiratory effort, lungs clear to auscultation Cardiovascular RRR, no murmur, no edema Gastrointestinal (Abdomen) normal bowel sounds, soft, nontender, no hepatosplenomegaly Musculoskeletal no cyanosis or clubbing, extremities motor strength 5/5 Skin no rashes, warm and dry Neurologic patellar DTR's 2+ bilat, sensation intact and PERRL, EOMI, accommodation nl, no face palsy, no dysarthria Psychiatric A+Ox3, euthymic affect Lymphatic no cervical or axillary lymphadenopathy Discharge Data Allergies Allergy/AdvReac Type Severity Reaction Status Date / Time Sulfa (Sulfonamide Allergy Intermediate RASH/PRURIT Verified 11/28/18 11:58 Antibiotics) IS omeprazole AdvReac Intermediate interacts Verified 11/28/18 11:58 w/ clopidigrol chlorpropamide AdvReac Mild N/V Verified 11/28/18 11:58 ARI Inhibitors AdvReac Unknown AVOIDS Verified 11/28/18 11:58 SECONDARY TO "OTHER MEDICATIONS" PER PT Consultations 11/28/18 15:37 ED Decision to Admit Stat 11/28/18 15:49 Consult Case Management - Discharge Planning Routine 11/28/18 18:11 Consult Cardiology Routine 11/30/18 09:07 Consult [facility]uler Routine Ordered Studies 11/28/18 11:59 CT cervical spine wo con Stat 11/28/18 12:00 CT head/brain wo con Stat Hospital Course (1) Syncope: no episodes while admitted, continue on tele, no arrhythmias while a dmitted, borderline sinus bradycardia in 50's when sleeping normal echocardiogram, no valve disease, preserved EF troponin negative x 3 sets, no evidence of ACS, no further chest pain have patient ambulate in the martini, did well with therapy plan for Holter monitor at home for 30 days to try to capture arrhythmia follow up with cardiology after a month (2) CHI (closed head injury): -CT of the head is negative, no laceration -Tylenol and tramadol available for pain relief -Patient feels fine for two days, no headache (3) CHF (congestive heart failure): -Chronic systolic and diastolic -Continue ASA 81 mg daily, Bumex 2 mg p.o. qam, spironolactone 25 mg QAM, carvedilol 25 mg BID, hydralazine 100 mg TID, Imdur at 120 mg p.o. BID - echo is same as prior examines euvolemic (4) Renal artery stenosis: -Continue antihypertensives as above (5) Hyperlipidemia: -Continue atorvastatin 80 mg p.o. HS (6) Hypertension: -Continue antihypertensives as above (7) Chronic kidney disease, stage 3 (moderate): -Creatinine stable during stay (8) CAD (coronary artery disease): -Continue medications as above -continue Plavix, aspirin and statin therapy no evidence of ACS with chest pain yesterday (9) History of heart artery stent: (10) H/O heart bypass surgery: (11) Peripheral artery disease: - noted (12) Anemia: -Hemoglobin stable at 10 (13) Asthma: -Stable continue inhalers albuterol as needed (14) Diabetes: -Continue Lantus 30 units HS -ISS with Accu-Cheks ACHS (15) GERD (gastroesophageal reflux disease): -Continue Reglan ACHS, pantoprazole 40 mg nightly (16) Obesity (BMI 30-39.9): -Diet and exercise to be encouraged upon discharge -BMI 34.3 (17) Chronic knee pain: -May use tramadol for pain relief (18) DVT prophylaxis: -Teds, SCDs, Plavix and aspirin Total Time Total Time Spent Total Time Spent (In Minutes): 31 minutes Total Time Includes: Examination of the Patient, Discharge Planning, Medication Reconciliation and Communication With Other Providers (Dr. Salinas) Discharge Plan Discharge Items Patient Disposition: Home - Self-Care Reason For Visit: SYNCOPE Discharge Diagnosis: syncope Condition: Good Discharge Goals: Diagnostic testing and Improve function Activity: Resume your previous activity Non-emergency contact: Primary Care Provider and Physiognomist Call non-emergency contact if: you have any medication questions, your symptoms worsen and you have a fever Follow-up/Referrals: Nicolette Marquez MD [Primary Care Provider] - Diet: Carb Consistent or DM2 and Heart Healthy Addtl Provider Instructions: Medications: no changes Syncope no events while here, vitals stable no arrhythmias or pauses while on the monitor still feel that most likely etiology would be an arrhythmia, will arrange for 30 day monitor at home, my nurse navigator will call you no evidence of heart attack echocardiogram showed normal ejection fraction, no valve disease go home, no restrictions, arrange for the 30 day monitor and follow up with cardiology in one month FOLLOW UP - Dr. Marquez in one week, call for appt - Dr. Barlow or cardiology PA in one month, call [phone] for appt Prescriptions: Continued carvedilol 25 mg tablet 25 mg PO BID RF: 0 bumetanide 2 mg tablet 2 mg PO QAM RF: 0 nystatin 100,000 unit/gram cream 1 applic topical BID RF: 0 spironolactone 50 mg tablet 50 mg PO QAM RF: 0 iron 18 mg Tablet 18 mg PO QDL RF: 0 Novolog Flexpen U-100 Insulin 100 unit/mL (3 mL) insulin pen 7 unit subcut TID RF: 0 Basaglar KwikPen U-100 Insulin 100 unit/mL (3 mL) insulin pen 30 unit subcut HS RF: 0 Metamucil 3.4 gram/5.4 gram Powder 1 tbsp PO HS RF: 0 pantoprazole 40 mg tablet,delayed release (DR/EC) 40 mg PO QAM RF: 0 multivitamin [Multiple Vitamins] Tablet 1 tab PO QDL RF: 0 atorvastatin 80 mg tablet 80 mg PO HS RF: 0 albuterol sulfate 2.5 mg /3 mL (0.083 %) Solution For Nebulization 2.5 mg INHALATION TID PRN (Reason: Shortness Of Breath) RF: 0 potassium chloride 10 mEq tablet extended release 10 meq PO QDL RF: 0 clopidogrel 75 mg tablet 75 mg PO QAM RF: 0 aspirin 81 mg Tablet,Delayed Release (Dr/Ec) 81 mg PO QAM RF: 0 tramadol 50 mg Tablet 50 - 100 mg PO BID PRN (Reason: Pain) RF: 0 isosorbide mononitrate 120 mg tablet extended release 24 hr 120 mg PO BID RF: 0 metoclopramide HCl 5 mg Tablet 5 mg PO ACHS RF: 0 hydralazine 100 mg tablet 100 mg PO TID RF: 0 nitroglycerin [Nitrostat] 0.4 mg Tablet, Sublingual 0.4 mg Sublingual UD PRN (Reason: Chest Pain) RF: 0 Glucagon Emergency Kit (human) 1 mg Recon Soln 1 dose subcut UD PRN (Reason: Hypoglycemia) RF: 0 docusate sodium 100 mg Capsule 100 mg PO HS RF: 0 gabapentin 100 mg capsule 200 mg PO HS RF: 0 albuterol sulfate 90 mcg/actuation HFA aerosol inhaler 2 puff Inhalation QID PRN (Reason: Shortness Of Breath Or Wheezing) RF: 0 fluticasone propionate [Flonase Allergy Relief] 50 mcg/actuation [place],Suspension 1 spray INTRANASAL BID PRN (Reason: Unknown) RF: 0 cinnamon bark [Cinnamon] 500 mg Capsule 1,000 mg PO DAILY PRN (Reason: Hyperglycemia) RF: 0 Citracal Plus Magnesium 250-40-125 mg-mg-unit Tablet 1 tab PO .Q OTHER HS RF: 0 Stand-Alone Forms: [facility] Discharge Orders: Discharge Order (Routine); Ordered 11/30/18 Ordered By: Yonatan Gonzalez Admission Data Admit Date/Time: 11/28/18 15:47 Attending Provider: Yonatan Gonzalez Admit Provider: Jett Holland Primary Care Provider: Nicolette Marquez Other Providers: Amilcar Salinas ; Yonatan Gonzalez Service: Telemetry Medical Other Interventions: Discharge Summary Assessment (RN) Last Done: 11/30/18 09:37 Pending Studies at Discharge: No DC Date/Time DO NOT enter until pt leaves facility: 11/30/18 11:56
[2018-11-30] MEDS: FERROUS SULFATE 325 MG TAB PO SCH (10:48)
[2018-11-30] MEDS: POTASSIUM CHLORIDE 10 MEQ TABCR PO SCH (10:48)
[2018-11-30] MEDS: MULTIVITAMIN TAB PO SCH (10:49)
== END 2018-11-30 11:56 | disposition home or self-care (01) ==
LOC: 2N 11:34 → ED 11:34 → SUATTDRO 15:47 → 2N 17:30

== ENCOUNTER 2020-06-13 13:28 | Inpatient (IN) ==
--- NOTE | 2020-06-13 14:03 | XRay Report ---
XR chest 1V portable HISTORY: 79 years-old Female SOB acute shortness of breath COMPARISON: Chest radiograph 11/28/2018 TECHNIQUE: Portable AP view of the chest FINDINGS: Cardiac silhouette is enlarged, unchanged. Prior median sternotomy. No pneumothorax. Blunting of the costophrenic angles. Pulmonary vascular congestion with interstitial coarsening and patchy bilateral airspace opacities. Degenerative changes of the shoulders and spine. Cervical spinal fusion hardware. IMPRESSION: 1. Cardiomegaly with pulmonary vascular congestion, interstitial coarsening and ill-defined left grea ter than right airspace opacities suggestive of pulmonary edema versus multifocal pneumonia. 2. Trace pleural effusions. ACT 112: Negative or not required by law. The above report was generated using voice recognition software. It may contain grammatical, syntax o r spelling errors. Electronically signed by: Colby White M.D. 06/13/2020 2:01 PM
[2020-06-13 14:04] LABS: Basophils # (auto) 0.02 K/uL (0-0.2); Basophils % (auto) 0.2 %; Eosinophils # (auto) 0.05 K/uL (0-0.5); Eosinophils % (auto) 0.4 %; Hematocrit (blood only) 33.9 % (37-47); Hemoglobin 10.9 g/dL (12.0-16.0); Immature Granulocytes # (auto) 0.06 K/uL (0.00-0.02); Immature Granulocytes % (auto) 0.5 %; Lymphocytes # (auto) 0.32 K/uL (1.2-3.4); Lymphocytes % (auto) 2.7 %; Mean Corpuscular Hemoglobin 30.8 pg (25-34); Mean Corpuscular Hgb Conc 32.2 g/dL (32-36); Mean Corpuscular Volume 95.8 fL (80-100); Mean Platelet Volume 11.3 fL (7.4-10.4); Monocytes # (auto) 0.64 K/uL (0.11-0.59); Monocytes % (auto) 5.4 %; Neutrophils % (auto) 90.8 %; Platelet Count 162 K/uL (130-400); RDW Coefficient of Variation 14.7 % (11.5-14.5); RDW Standard Deviation 51.9 fL (36.4-46.3); Red Blood Count 3.54 M/uL (4.2-5.4); White Blood Count 11.79 K/uL (4.8-10.8)
[2020-06-13 14:21] LABS: BUN Creatinine Ratio 30.1 (10-20); Calcium 9.3 mg/dl (8.5-10.1); Creatinine Clr Calc Pharmacy 25.3 ml/min; Est GFR (African American) 25.3; Est GFR (Non-African American) 21.9; Potassium 4.2 mmol/L (3.5-5.1)
[2020-06-13 14:25] LABS: INR 1.1 (0.9-1.1); Partial Thromboplastin Ratio 0.9; Partial Thromboplastin Time 25.4 Seconds (21.0-31.0); Prothrombin Time 11.8 Seconds (9.0-12.0)
[2020-06-13 14:26] LABS: Albumin Globulin Ratio 0.8 (0.9-2); Bilirubin,Total 0.5 mg/dl (0.2-1); Globulin 3.9 gm/dl (2.5-4.0); Total Protein 6.9 gm/dl (6.4-8.2); Troponin I 3.05 ng/ml (0-0.045)
[2020-06-13] MEDS ORDERED: FUROSEMIDE 40 MG/4 ML VIAL IV STA (14:38)
--- NOTE | 2020-06-13 14:56 | Emergency Department Note ---
History of Present Illness General Chief complaint: Shortness of Breath/Dyspnea Time Seen by Provider: 06/13/20 13:58 History of Present Illness Provider complaint: Shortness of breath Onset (ago): day(s) 1 Associated symptoms: + cough and + shortness of breath; no chest pain, no fever/chills, no headaches and no nausea/vomiting 71-year-old female presents emergency department from PCP office for shortness of breath. Patient reports shortness of breath began last night. She states she was having difficulty lying down flat when going to bed. She reports she having to use multiple pillows to prop herself up to help her with her breathing. She states she went to her doctor today who referred her to the emergency department for changes in her EKG. Patient denies any chest pain. Denies any cough. No hemoptysis. No fever. No loss of taste or smell. Home Medications Medication Instructions Recorded Confirmed Type Glucagon Emergency Kit (human) 1 dose SUBCUT UD PRN 04/23/18 06/13/20 History aspirin 81 mg PO QAM 04/23/18 06/13/20 History cinnamon bark [Cinnamon] 1,000 mg PO DAILY PRN 04/23/18 06/13/20 History docusate sodium 100 mg PO HS 04/23/18 06/13/20 History fluticasone propionate [Flonase 1 spray INTRANASAL BID PRN 04/23/18 06/13/20 History Allergy Relief] multivitamin [Multiple Vitamins] 1 tab PO QDL 04/23/18 06/13/20 History Metamucil 1 tbsp PO HS 11/28/18 06/13/20 History iron 18 mg PO QDL 11/28/18 06/13/20 History calcium 1 tab PO Q OTHER DAY tab 01/21/19 06/13/20 History sdn-awa-[id number]-flqpug-Rn-boron 250 mg-40 mg-125 unit tablet albuterol sulfate 90 mcg/actuation 2 puff INHALATION QID PRN #8.5 gm 05/22/19 06/13/20 Rx aerosol inhaler albuterol sulfate 2.5 mg INHALATION Q4H PRN #75 ml 06/03/19 06/13/20 Rx spironolactone 50 mg tablet 50 mg PO QAM #90 tab 08/03/19 06/13/20 Rx hydralazine 100 mg tablet 100 mg PO TID #270 tab 08/17/19 06/13/20 Rx atorvastatin 80 mg tablet 80 mg PO HS #90 tab 08/24/19 06/01/20 Rx pantoprazole 40 mg tablet,delayed 40 mg PO QAM #90 tab 10/28/19 06/13/20 Rx release BD Ultra-Fine Short Pen Needle 31 #400 ea NS 11/16/19 06/13/20 Rx gauge x 5/16" nitroglycerin 0.4 mg sublingual 0.4 mg SUBLINGUAL UD PRN #25 tab 11/18/19 06/13/20 Rx tablet tramadol 50 mg tablet See Rx Instructions .ROUTE 02/17/20 06/13/20 Rx .COMPLEX #120 tablet metoclopramide HCl 5 mg tablet 5 mg PO .COMPLEX #360 tab 03/01/20 06/13/20 Rx insulin aspart U-100 100 unit/mL See Rx Instructions SQ TID 90 Days 03/08/20 06/13/20 Rx (3 mL) subcutaneous pen #45 ml Basaglar KwikPen U-100 Insulin 100 30 unit SUBCUT HS 90 Days #30 ml NS 03/23/20 06/13/20 Rx unit/mL (3 mL) subcutaneous clopidogrel 75 mg tablet 75 mg PO DAILY #90 tab 03/28/20 06/13/20 Rx gabapentin 100 mg capsule 100 mg PO TID #270 cap 03/28/20 06/13/20 Rx blood-glucose meter #1 ea 04/05/20 06/13/20 History blood sugar diagnostic #100 ea 04/06/20 06/13/20 Rx lancets 33 gauge #100 ea 04/06/20 06/13/20 Rx isosorbide mononitrate 120 mg 120 mg PO BID #180 tab 05/09/20 06/13/20 Rx tablet,extended release 24 hr bumetanide 2 mg tablet 1 mg PO QAM #90 tab 05/18/20 06/13/20 Rx carvedilol 25 mg tablet 25 mg PO BID #180 tab 06/01/20 06/13/20 Rx cefuroxime axetil 250 mg tablet 250 mg PO BID 10 Days #20 tab 06/03/20 06/13/20 Rx Allergies Allergy/AdvReac Type Severity Reaction Status Date / Time Sulfa (Sulfonamide Allergy Intermediate RASH/PRURIT Verified 06/13/20 12:03 Antibiotics) IS sulfamethoxazole Allergy Unverified 06/13/20 12:03 [From Bactrim] trimethoprim [From Bactrim] Allergy Unverified 06/13/20 12:03 omeprazole AdvReac Intermediate interacts Verified 06/13/20 12:03 w/ clopidigrol chlorpropamide AdvReac Mild N/V Verified 06/13/20 12:03 ARI Inhibitors AdvReac Unknown AVOIDS Verified 06/13/20 12:03 SECONDARY TO "OTHER MEDICATIONS" PER PT Past Med/Surg History Medical History (Updated 06/13/20 @ 14:56 by Jacky Jolley) Acute asthmatic bronchitis Anemia Asthma CAD (coronary artery disease) Chronic diastolic (congestive) heart failure Diabetic neuropathy Gastroparesis GERD (gastroesophageal reflux disease) Hyperlipidemia Hypertension Lumbar canal stenosis Osteoarthritis of knee Osteopenia Peripheral artery disease Renal artery stenosis Secondary hyperparathyroidism Sinusitis Type 2 diabetes mellitus with kidney complication, 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, with long-term current use of insulin Vitamin D deficiency Surgical History History of back surgery History of cataract surgery History of cholecystectomy History of coronary artery bypass graft History of coronary artery stent placement History of hysterectomy History of tonsillectomy S/P carpal tunnel release Family History Unknown Coronary heart disease Diabetes Brain cancer Father Kidney disease Brother COPD (chronic obstructive pulmonary disease) Prostate cancer Myocardial infarction Hypertension Heart disease Sister Lung cancer Denies family history of Rheumatoid arthritis Sudden SIDS (sudden syndrome) Ovarian cancer Deep vein thrombosis Osteoporosis Dyslipidemia Cerebral aneurysm Alzheimer disease Bipolar disorder Clotting disorder Crohn's disease Dementia Depression Osteoarthritis Breast cancer Schizophrenia Congenital kidney disease Gestational diabetes Colorectal cancer Pulmonary embolism Lung disease Cancer Ulcerative colitis Colonic polyp Stroke Asthma Cystic kidney disease Social History Smoking Status: Never smoker Second Hand Exposure: No; Hx Alcohol Use: No Hx Substance Use: No Preferred Language: [place] Communication Ability: Effective Visual Impairment: No Limitations Hearing Ability: Normal Endoscopy Specialty Technician Required: No Beliefs That Will Affect Care: Faith Faith Beliefs: Jehovah'S Witness marital status: / Current Living Situation: Alone current occupational status: retired and disabled 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, 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 How many Children do You have: 3 Feels Safe at Home: Yes Childhood Exposure to Second-Hand Smoke: Yes caffeine: Yes (coffee in AM, rarely a soda) during the past year weight has: remained stable Dental Care, Regularly: No Physical Activity Frequency: 1-2 Times per Week Seatbelt Use: always Sunscreen Use: Yes Assistive Devices: Walker Review of Systems A total of 10 systems reviewed and were otherwise negative Physical Exam Vital Signs Vital Signs - 24 hr 06/13/20 13:37 06/13/20 13:50 Temperature 36.7 C Temperature Source Oral Pulse Rate 86 Pulse Rhythm Regular Pulse Strength Normal Respiratory Rate 24 Respiratory Effort / Characteristics Labored Respiratory Depth Normal Respiratory Pattern Regular Blood Pressure 193/107 H Blood Pressure Mean 135 Blood Pressure Position Sitting Pulse Oximetry 96 99 Oxygen Delivery Method Room Air Nasal Cannula Oxygen Flow Rate 2 Sepsis Recent Fever Within 48 Hours No Sepsis New/Unexplained Change in Mental Status No Sepsis Action Taken by Nursing No Action Required Physical Exam GENERAL: She is oriented to person, place, and time. She appears well-developed and well-nourished. She does not appear distressed. HENT: Exam performed. -Head: Normocephalic and atraumatic. -Right Ear: External ear normal. No mastoid tenderness. -Left Ear: External ear normal. No mastoid tenderness. -Mouth/Throat: The oropharynx is clear and moist. No trismus in the jaw. No dental abscesses or uvula swelling. No oropharyngeal exudate or tonsillar ab scesses. EYES: Conjunctivae and EOM are normal. Pupils are equal, round, and reactive to light. Right eye exhibits no discharge. Left eye exhibits no discharge. No scleral icterus. NECK: Normal range of motion. Neck supple. No JVD present. No spinous process tenderness present. No carotid bruit present. No rigidity. No tracheal deviation and normal range of motion present. No Brudzinski's sign and no Kernig's sign noted. CV: Normal rate, regular rhythm, normal heart sounds and intact distal pulses. Palpable radial pulses bue. PULM/CHEST: Rales at the bases bilaterally. -Chest Wall: She exhibits no tenderness. ABD: The abdomen is soft. Bowel sounds are normal. She has no distension. No mas s is present. There is no tenderness. There is no rebound, no guarding, no Hughes's sign and no tenderness at McBurney's point. Rovsig negative MUSC/SKEL: Normal range of motion. 1+ pitting edema of the bilateral lower extremities. NEURO: She is alert and oriented to person, place, and time. She has normal strength. No cranial nerve deficit or sensory deficit. Coordination and gait normal. GCS eye subscore is 4. GCS verbal subscore is 5. GCS motor subscore is 6. Cerebellar tests wnl. SKIN: Skin is warm and dry. She is not diaphoretic. PSYCH: She has a normal mood and affect. Behavior is normal. Judgment and thought content normal. Course Course 1358: The patient was evaluated in room C2. A complete history and physical exam was performed. Cardiac monitoring: An order was placed for continuous cardiac monitoring. The monitor shows a rate of 80 with sinus rhythm 1452: Vital signs stable on room air. Patient reports no chest pain at this time. Patient's chest x-ray shows cardiomegaly with fluid overloaded. Troponin and proBNP elevated at 3.05 and 22,424 respectively. Patient denies any chest pain at this time. Is thought that the troponin elevation could be due to the patient's congestive heart failure. Patient will be admitted to the [facility] any hospitalist team. Discussed with Sher tsai PA-C who stated to admit to Dr. Swift. [facility] any hospitalist team recommends Lasix 40 mg IVP. They will trend the troponins. Note chest pain during her entire emergency department stay, thus will hold on anticoagulation at this time. Discussed with the patient's daughter Ana Luisa [phone] and let her know the patient will be admitted. She is in agreement also. Medical Decision Making Laboratory Data Result diagrams: 06/13/20 13:51 06/13/20 13:51 Lab Results 06/13/20 06/13/20 06/13/20 Range/Units 13:51 13:51 13:51 WBC 11.79 H (4.8-10.8) K/uL RBC 3.54 L (4.2-5.4) M/uL Hgb 10.9 L (12.0-16.0) g/dL Hct 33.9 L (37-47) % MCV 95.8 (80-100) fL MCH 30.8 (25-34) pg MCHC 32.2 (32-36) g/dL RDW Std Deviation 51.9 H (36.4-46.3) fL RDW Coeff of Duy 14.7 H (11.5-14.5) % Plt Count 162 (130-400) K/uL MPV 11.3 H (7.4-10.4) fL Immature Gran % (Auto) 0.5 % Neut % (Auto) 90.8 % Lymph % (Auto) 2.7 % Harmon % (Auto) 5.4 % Eos % (Auto) 0.4 % Baso % (Auto) 0.2 % Neut # (Auto) 10.70 H (1.4-6.5) K/uL Lymph # (Auto) 0.32 L (1.2-3.4) K/uL Harmon # (Auto) 0.64 H (0.11-0.59) K/uL Eos # (Auto) 0.05 (0-0.5) K/uL Baso # (Auto) 0.02 (0-0.2) K/uL Immature Gran # (Auto) 0.06 H (0.00-0.02) K/uL PT 11.8 (9.0-12.0) Seconds INR 1.1 (0.9-1.1) APTT 25.4 (21.0-31.0) Seconds PTT Ratio 0.9 Sodium 137 (136-145) mmol/L Potassium 4.2 (3.5-5.1) mmol/L Chloride 105 (98-107) mmol/L Carbon Dioxide 27 (21-32) mmol/L Anion Gap 5.0 (3-11) BUN 64 H (7-18) mg/dl Creatinine 2.11 H (0.6-1.2) mg/dl Est Cr Clr Drug Dosing 25.3 ml/min Est GFR ( Amer) 25.3 Est GFR (Non-Af Amer) 21.9 BUN/Creatinine Ratio 30.1 H (10-20) Glucose 210 H (70-99) mg/dl Calcium 9.3 (8.5-10.1) mg/dl Total Bilirubin 0.5 (0.2-1) mg/dl AST 24 (15-37) U/L ALT 25 (12-78) U/L Alkaline Phosphatase 38 L (45-117) U/L Troponin I 3.050 H* (0-0.045) ng/ml NT-Pro-B Natriuret Pep (0-1800) pg/ml Total Protein 6.9 (6.4-8.2) gm/dl Albumin 3.0 L (3.4-5.0) gm/dl Globulin 3.9 (2.5-4.0) gm/dl Albumin/Globulin Ratio 0.8 L (0.9-2) COVID-19 Eval Order 06/13/20 06/13/20 Range/Units 13:51 14:15 WBC (4.8-10.8) K/uL RBC (4.2-5.4) M/uL Hgb (12.0-16.0) g/dL Hct (37-47) % MCV (80-100) fL MCH (25-34) pg MCHC (32-36) g/dL RDW Std Deviation (36.4-46.3) fL RDW Coeff of Duy (11.5-14.5) % Plt Count (130-400) K/uL MPV (7.4-10.4) fL Immature Gran % (Auto) % Neut % (Auto) % Lymph % (Auto) % Harmon % (Auto) % Eos % (Auto) % Baso % (Auto) % Neut # (Auto) (1.4-6.5) K/uL Lymph # (Auto) (1.2-3.4) K/uL Harmon # (Auto) (0.11-0.59) K/uL Eos # (Auto) (0-0.5) K/uL Baso # (Auto) (0-0.2) K/uL Immature Gran # (Auto) (0.00-0.02) K/uL PT (9.0-12.0) Seconds INR (0.9-1.1) APTT (21.0-31.0) Seconds PTT Ratio Sodium (136-145) mmol/L Potassium (3.5-5.1) mmol/L Chloride (98-107) mmol/L Carbon Dioxide (21-32) mmol/L Anion Gap (3-11) BUN (7-18) mg/dl Creatinine (0.6-1.2) mg/dl Est Cr Clr Drug Dosing ml/min Est GFR ( Amer) Est GFR (Non-Af Amer) BUN/Creatinine Ratio (10-20) Glucose (70-99) mg/dl Calcium (8.5-10.1) mg/dl Total Bilirubin (0.2-1) mg/dl AST (15-37) U/L ALT (12-78) U/L Alkaline Phosphatase (45-117) U/L Troponin I (0-0.045) ng/ml NT-Pro-B Natriuret Pep 38521 H (0-1800) pg/ml Total Protein (6.4-8.2) gm/dl Albumin (3.4-5.0) gm/dl Globulin (2.5-4.0) gm/dl Albumin/Globulin Ratio (0.9-2) COVID-19 Eval Order [facility]FluRsv at [facility] Imaging Data Radiologist's Impression: XR chest 1V portable HISTORY: 79 years-old Female SOB acute shortness of breath COMPARISON: Chest radiograph 11/28/2018 TECHNIQUE: Portable AP view of the chest FINDINGS: Cardiac silhouette is enlarged, unchanged. Prior median sternotomy. No pneumothorax. Blunting of the costophrenic angles. Pulmonary vascular congestion with interstitial coarsening and patchy bilateral airspace opacities. Degenerative changes of the shoulders and spine. Cervical spinal fusion hardware. IMPRESSION: 1. Cardiomegaly with pulmonary vascular congestion, interstitial coarsening and ill-defined left greater than right airspace opacities suggestive of pulmonary edema versus multifocal pneumonia. 2. Trace pleural effusions. ACT 112: Negative or not required by law. The above report was generated using voice recognition software. It may contain grammatical, syntax or spelling errors. Electronically signed by: Colby White M.D. 06/13/2020 2:01 PM Dictated: 06/13/20 1358 Transcribed: 06/13/20 1358 ECG Data Additional Comments: EKG #1 at 1342: Sinus rhythm with a rate of 85. DE 1 5 4 QRS [address] depression in leads I II V2 V3 V4 V5 V6. EKG #2 at 1433: Sinus rhythm with a rate of 82. DE 160 QRS [address] depression in leads I II V2 V3 V4 V5 V6 [facility] Narrative 1358: The patient was evaluated in room C2. A complete history and physical exam was performed. Cardiac monitoring: An order was placed for continuous cardiac monitoring. The monitor shows a rate of 80 with sinus rhythm 1452: Vital signs stable on room air. Patient reports no chest pain at this time. Patient's chest x-ray shows cardiomegaly with fluid overloaded. Troponin and proBNP elevated at 3.05 and 22,424 respectively. Patient denies any chest pain at this time. Is thought that the troponin elevation could be due to the patient's congestive heart failure. Patient will be admitted to the [facility] any hospitalist team. Discussed with Sher tsai PA-C who stated to admit to Dr. Swift. [facility] any hospitalist team recommends Lasix 40 mg IVP. They will tren d the troponins. Note chest pain during her entire emergency department stay, thus will hold on anticoagulation at this time. Discussed with the patient's daughter Ana Luisa [phone] and let her know the patient will be admitted. She is in agreement also. Impression & Plan Congestive heart failure, CKD (chronic kidney disease) stage 4, GFR 15-29 ml/min, Elevated troponin Discharge Plan Visit Data Chief Complaint: Shortness of Breath/Dyspnea ED Provider: Jacky Jolley Discharge Problem: Congestive heart failure, CKD (chronic kidney disease) stage 4, GFR 15-29 ml/min, Elevated troponin Patient Disposition: Admitted As Inpatient Forms Stand Alone Forms: [facility] Prescriptions Prescriptions: No Action albuterol sulfate 2.5 mg /3 mL (0.083 %) solution for nebulization 2.5 mg INHALATION Q4H PRN (Reason: Shortness Of Breath) Qty: 75 RF: 3 spironolactone 50 mg tablet 50 mg PO QAM Qty: 90 RF: 3 hydralazine 100 mg tablet 100 mg PO TID Qty: 270 RF: 3 atorvastatin 80 mg tablet 80 mg PO HS Qty: 90 RF: 3 Hold Instructions: Myalgias pantoprazole 40 mg tablet,delayed release (DR/EC) 40 mg PO QAM Qty: 90 RF: 3 (DME) pen needle, diabetic [BD Ultra-Fine Short Pen Needle] 31 gauge x 5/16" needle See Dose Instructions .ROUTE .MEDSUPPLY Qty: 400 RF: 1 tramadol 50 mg tablet See Rx Instructions .ROUTE .COMPLEX Qty: 120 RF: 3 metoclopramide HCl 5 mg tablet 5 mg PO .COMPLEX Qty: 360 RF: 3 insulin aspart U-100 [Novolog Flexpen U-100 Insulin] 100 unit/mL (3 mL) insulin pen See Rx Instructions SQ TID 90 Days Qty: 45 RF: 3 Basaglar KwikPen U-100 Insulin 100 unit/mL (3 mL) insulin pen 30 unit subcut HS 90 Days Qty: 30 RF: 1 clopidogrel 75 mg tablet 75 mg PO DAILY Qty: 90 RF: 3 gabapentin 100 mg capsule 100 mg PO TID Qty: 270 RF: 3 (DME) OneTouch Verio test strips Strip See Rx Instructions .ROUTE .MEDSUPPLY Qty: 100 RF: 3 (DME) lancets [BD Ultra Fine Lancets] 33 gauge misc See Rx Instructions .ROUTE .MEDSUPPLY Qty: 100 RF: 3 isosorbide mononitrate 120 mg tablet extended release 24 hr 120 mg PO BID Qty: 180 RF: 3 bumetanide 2 mg tablet 1 mg PO QAM Qty: 90 RF: 3 cefuroxime axetil 250 mg tablet 250 mg PO BID 10 Days Qty: 20 RF: 0 nitroglycerin [Nitrostat] 0.4 mg tablet, sublingual 0.4 mg Sublingual UD PRN (Reason: Chest Pain) Qty: 25 RF: 5 carvedilol 25 mg tablet 25 mg PO BID Qty: 180 RF: 3 albuterol sulfate 90 mcg/actuation HFA aerosol inhaler 2 puff Inhalation QID PRN (Reason: Shortness Of Breath Or Wheezing) Qty: 8.5 RF: 1 (DME) blood-glucose meter [OneTouch Verio Flex Start] Kit See Rx Instructions .ROUTE .MEDSUPPLY Qty: 1 RF: 0 iron 18 mg Tablet 18 mg PO QDL RF: 0 Metamucil 3.4 gram/5.4 gram Powder 1 tbsp PO HS RF: 0 multivitamin [Multiple Vitamins] Tablet 1 tab PO QDL RF: 0 aspirin 81 mg Tablet,Delayed Release (Dr/Ec) 81 mg PO QAM RF: 0 Glucagon Emergency Kit (human) 1 mg Recon Soln 1 dose subcut UD PRN (Reason: Hypoglycemia) RF: 0 docusate sodium 100 mg Capsule 100 mg PO HS RF: 0 fluticasone propionate [Flonase Allergy Relief] 50 mcg/actuation Carmichael,Suspension 1 spray INTRANASAL BID PRN (Reason: Unknown) RF: 0 cinnamon bark [Cinnamon] 500 mg Capsule 1,000 mg PO DAILY PRN (Reason: Hyperglycemia) RF: 0 Citracal-D3 Plus Magnesium 250-40-125 mg-mg-unit tablet 1 tab PO Q OTHER DAY RF: 0 Referrals Referrals: Nicolette Marquez MD [Primary Care Provider] - Discharge Problem: Congestive heart failure Qualifiers: Heart failure type: unspecified Heart failure chronicity: acute Qualified Code(s): I50.9 - Heart failure, unspecified
[2020-06-13 15:23] LABS: Influenza A virus by PCR Negative (Neg); Influenza B virus by PCR Negative (Neg); RSV by PCR Negative (Neg)
[2020-06-13 15:43] LABS: SARS CoV2 RNA(COVID-19) InHosp POSITIVE (Negative)
--- NOTE | 2020-06-13 16:46 | Electrocardiogram Report ---
Test Reason : Blood Pressure : / mmHG Vent. Rate : 085 BPM Atrial Rate : 085 BPM P-R Int : 154 ms QRS Dur : 134 ms QT Int : 362 ms P-R-T Axes : 053 -18 167 degrees QTc Int : 430 ms Poor data quality, interpretation may be adversely affected Normal sinus rhythm with sinus arrhythmia Right bundle branch block T wave abnormality, consider inferolateral ischemia Abnormal ECG When compared with ECG of 29-NOV-2018 12:57, T wave inversion now evident in Inferior leads T wave inversion now evident in Anterolateral leads QT has shortened Confirmed by Heriberto Jauregui ([id number]) on 06/13/2020 4:45:42 PM Referred By: Confirmed By:Marcus Jauregui
--- NOTE | 2020-06-13 16:47 | Electrocardiogram Report ---
Test Reason : Blood Pressure : / mmHG Vent. Rate : 082 BPM Atrial Rate : 082 BPM P-R Int : 160 ms QRS Dur : 138 ms QT Int : 426 ms P-R-T Axes : 065 -11 121 degrees QTc Int : 497 ms Sinus rhythm with Premature atrial complexes Right bundle branch block T wave abnormality, consider inferolateral ischemia Abnormal ECG When compared with ECG of 13-JUN-2020 13:42, (unconfirmed) Premature atrial complexes are now Present QT has lengthened Confirmed by Heriberto Jauregui ([id number]) on 06/13/2020 4:47:35 PM Referred By: REFERRED SELF Confirmed By:Marcus Jauregui
--- NOTE | 2020-06-13 17:35 | History & Physical Report ---
Date of Service June 13, 2020 Assessment & Plan (1) Congestive heart failure: Mrs Sosa is a 79 year old female with a history of Multivessel CAD s/p CABG x 3 Vessels 1999, s/p Intracoronary Stents (including LMCA stent), Hypertension, Insulin Requiring Type 2 Diabetes Mellitus, Dyslipidemia, Carotid Stenoses s/p Bilateral CEA's, Cerebrovascular Disease, PAD s/p Peripheral Interventions, Renal Artery Stenosis s/p Left Renal Artery Stent, Chronic Diastolic CHF, Asthma, Anemia, CKD, Secondary Hyperparathyroidism, Obesity, and Diabetic Neuropathy who presents to [facility] ER today with CHF, Elevated Troponin I Level following 10 minutes of chest pressure earlier today, and a positive SARS CoV2 PCR test. She was referred to [facility] ER from her PCP's office earlier after she presented with SOB/EASLEY over the preceding 12 hours followed by an episode of chest discomfort and changes on her EKG as described below. She states that she received her first COVID vaccine yesterday around 1:10 pm at [facility]. She says she started to not feel well around 9 or 10 pm. She spilled some water on the floor, tried to wipe it up and got short of breath. SOB persisted. She subsequently went to bed and hard a hard time lying flat because it made her shortness of breath worse. She denied any chest pain last evening or overnight. Although she admits to having some central chest pressure this morning lasting approximately 10 minutes, it did not radiate, nor did she have any associated diaphoresis or worsening of her breathing status with the chest discomfort. "It may have been a little bit like my angina". She had some nausea but did not vomit this morning. She denies diarrhea or focal abdominal pain. She denies fever or new cough. She denies sore throat, loss of taste or smell, or any recent COVID exposures. Recommend the following: -- Admit to telemetry. -- Continue IV Bumex 2mg b.i.d.. -- Begin KCl 10 mEq b.i.d.. -- Monitor daily body weights, I&O's. -- Monitor daily BMP. -- Continue Spironolactone 50 mg daily. -- Continue beta pamela, nitrate, and other usual cardiac medications. (2) Elevated troponin: -- Multivessel CAD s/p CABG x 3 Vessels 1999, s/p Intracoronary Stents (including LMCA stent). -- Suspect elevated Troponin level secondary to demand ischemia related to CHF and hypertension. -- This does not appear to be an ACS. (3) CAD (coronary artery disease): -- Continue Coreg 25 mg b.i.d.. -- Continue Aspirin 81 mg daily. -- Continue Plavix 75 mg daily. -- Continue Imdur 120 mg b.i.d.. (4) Hypertension: -- BP elevated on admission. -- Diuresing her should help. -- Continue medications as ordered. (5) Type 2 diabetes mellitus with kidney complication, with long-term current use of insulin: -- Continue long acting insulin. -- Glycemic pharmacy consult placed. (6) COVID-19: -- No typical symptoms of SARS CoV-2/infectious process except for SOB. -- CXR showed infiltrates that appear to be pulmonary edema, recommend non- contrast CT scan of the chest to further evaluate. -- Received her 1st COVID vaccine yesterday. -- Isolation, COVID precautions. -- Closely follow clinical course. History of Present Illness Chief Complaint: -- SOB/EASLEY. -- Chest pain. Primary Care Provider: Nicolette Marquez MD Mrs Sosa is a 79 year old female with a history of Multivessel CAD s/p CABG x 3 Vessels 1999, s/p Intracoronary Stents (including LMCA stent), Hypertension, Insulin Requiring Type 2 Diabetes Mellitus, Dyslipidemia, Carotid Stenoses s/p Bilateral CEA's, Cerebrovascular Disease, PAD s/p Peripheral Interventions, Renal Artery Stenosis s/p Left Renal Artery Stent, Chronic Diastolic CHF, Asthma, Anemia, CKD, Secondary Hyperparathyroidism, Obesity, and Diabetic Neuropathy who was referred to [facility] ER from her PCP's office earlier after she presented with SOB/EASLEY over the preceding 12 hours followed by an episode of chest discomfort and changes on her EKG (ST and T depressions in leads II, aVR, and V2 through V6). She states that she received her first COVID vaccine yesterday around 1:10 pm at [facility]. She says she started to not feel well around 9 or 10 pm. She spilled some water on the floor, tried to wipe it up and got short of breath. SOB persisted. She subsequently went to bed and hard a hard time lying flat because it made her shortness of breath worse. She denied any chest pain last evening or overnight. Although she admits to having some central chest pressure this morning lasting approximately 10 minutes, it did not radiate, nor did she have any associated diaphoresis or worsening of her breathing status with the chest discomfort. "It may have been a little bit like my angina". She had some nausea but did not vomit this morning. She denies diarrhea or focal abdominal pain. She denies fever or new cough. She denies sore throat, loss of taste or smell, or any recent COVID exposures. Patient states that she has gained some weight in recent days. She states that Dr. Andrade reduced her Bumex about one month ago. She tried to use her hand-held inhaler but it is out of date so she used her nebulizer. She does't think this helped much. HISTORICAL BACKGROUND: Long-standing history of CAD s/p CABG x 3 Vessels in 1999 at [facility] (ARGUETA to LAD, SVG to RCA, Radial Artery Graft to LCx). Cardiac catheterization 2001 at [facility] with occlusion of the radial and venous grafts. The left internal mammary artery graft was patent. Non-ST elevation myocardial infarction July 02, 2010. Cardiac catheterization at [facility] with severe distal left main and ostial left circumflex marginal stenoses. Successful intervention to distal left main and left circumflex with deployment of 3.0 x 18 mm drug eluting stent. Post dilated with 3.25 mm noncompliant balloon. Total mid LAD occlusion. Mild to moderate atherosclerotic disease of right coronary artery. Patent ARGUETA graft to the mid LAD. Echocardiography with mild inferior wall hypokinesis. Trace mitral and tricuspid regurgitation. LV ejection fraction 50%-60%. History of type 2 diabetes mellitus, hypertension, and dyslipidemia. Peripheral vascular disease s/p bilateral iliac artery stents June 2010 at [facility]. Status post left SFA balloon angioplasty. Complicated by pseudoaneurysm formation and left common femoral artery. Lower extremity arterial duplex scan 12/01/2014 with 50%-74% stenosis and right proximal SFA. 75%-99% stenosis right mid SFA. 100% proximal left SFA occlusion. Reconstitution of the mid and distal SFA. DOMINIQUE on right 0.94. On left 0.55. Cerebrovascular disease s/p bilateral carotid endarterectomies. Family history of premature coronary artery disease in her brothers. She does not smoke cigarettes. S/P right SFA WRITING MANAGER on 01/19/[address] Ziegler. Complicated by a left femoral artery pseudoaneurysm requiring surgical repair. Status post left SFA WRITING MANAGER 07/13/2015. Performed via right femoral artery access. Admission to [facility] February 15, 2016-February 19, 2016 for cellulitis of face and parotitis. During the admission she was seen in Cardiology consultation. She had complained of increased dyspnea and fatigue prior to admission. The symptoms subsequently resolved. Troponin I were negative for myocardial infarction. The electrocardiograms revealed no ischemic changes. Echocardiogram on February 16, 2016 with normal LV size and systolic function. No regional wall motion abnormalities. Mild concentric LVH. LV ejection fraction 60%-65%. Type 2 diastolic dysfunction. Mild mitral regurgitation. Mild left atrial dilatation. No significant change from prior study of May 2014. Lexiscan pharmacologic stress test performed during admission revealed evidence suggesting ischemia in the proximal and distal anterior wall, mid to distal anterolateral wall, apex, proximal to distal inferior and inferoseptal iqbal. These findings were compared to her known angiographic findings on cardiac catheterization in 2010. It was felt that her multivessel coronary artery disease could account for all of the findings on the pharmacologic stress test. She was not experiencing any anginal symptoms by the time of discharge. Her cardiac enzymes were negative for myocardial injury. There was no evidence of an acute coronary syndrome. It was felt best by me that continued maximal medical therapy be pursued. Admission to admission to [facility] February 17, 2017-February 20, 2017 for pneumonia, asthma exacerbation, hypertension, and mildly elevated troponin I. She presented with dyspnea and bronchospasm. Blood pressure on admission as high as 202/114 millimeters Hg. Troponin I 0.872. Electrocardiogram with anterolateral ST T-wave changes consistent with ischemia. No definite anginal type symptoms. Sensation of chest tightness with bronchospasm. Echocardiogram with normal left ventricular systolic function, moderate LVH, class 2 LV diastolic dysfunction, [id number] mitral regurgitation, moderate tricuspid regurgitation, normal estimated central venous pressure, mildly elevated estimated right ventricular systolic pressure 30-40 millimeters of mercury. Treated for pneumonia and bronchospasm. For blood pressure control hydralazine increased to 50 milligrams t.i.d., carvedilol to 50 milligrams b.i.d., and amlodipine 2.5 milligrams daily started. Carotid ultrasound February 27, 2017 with greater than 70 percent right internal carotid artery stenosis. She was referred to vascular surgery. She desired to be seen by vascular surgery at the [facility]. She underwent a CT angiogram of her carotid arteries on April 02, 2017. 75 percent bilateral subclavian artery stenoses. Segmental occlusion in the proximal left vertebral artery. Greater than 75 percent stenosis in the right internal carotid artery. Less than 50% left internal carotid artery proximal stenosis. Greater than 50% left internal carotid artery stenosis at the level of the cavernous segment. It was recommended by vascular surgery that she continued to be monitored. Was planned for her to undergo a repeat carotid ultrasound in [address] [facility] October 22, 2017-November 04, 2017 for acute respiratory failure secondary to combination of COPD exacerbation and left ventricular diastolic dysfunction. She also had hypertensive urgency, demand myocardial ischemia, acute on chronic kidney injury, and fluid overload. An echocardiogram performed October 22, 2017 revealed LV ejection fraction greater than 70 percent, grade 2 LV diastolic dysfunction, mild mitral regurgitation, mild tricuspid regurgitation, and estimated right ventricular systolic pressure 40-50 millimeters of mercury. Labs on November 04, 2017 revealed hemoglobin of 10.1, platelet count 148, WBC 16.5, BUN 63, creatinine 1.91, potassium 4.3. For her COPD exacerbation she was treated with steroids and antibiotics. She also received nebulizer treatments. For her heart failure she received intravenous diuretic therapy. Her spironolactone dose was increased. During admission her amlodipine was di scontinued and she was placed on diltiazem. This was in light of her LV diastolic dysfunction. During the admission a CT scan with angiography was performed of her abdomen. This revealed a severe stenosis at origin of left renal artery. Calcified atherosclerotic plaque. Moderate to severe stenosis at origin of right renal artery. Extensive atherosclerotic plaque of the abdominal branch vessels. Moderate stenosis at the origin of the celiac axis and superior mesenteric artery. Patent inferior mesenteric artery. She was seen by vascular surgery who felt that intervention to renal artery stenoses would not be beneficial. Her case was discussed with vascular surgery at [facility]. It was planned for her to go there a few weeks following discharge for a second opinion regarding her renal artery stenoses. This was recommended by Nephrology consultation. Following discharge she was admitted to [facility]. Prior to her admission she had undergone a gastric emptying study on October 16, 2017. This had been performed for post prandial nausea. This revealed evidence of delayed gastric emptying of solids. She was subsequently referred to [facility] where she underwent stenting of her left renal artery on January 29, 2018. This was performed via a right femoral arterial access. Complicated by a retroperitoneal bleed r esulting in hypotension and severe anemia. She was hospitalized for 5 days. Admission in April [address] [facility] for hypoglycemia which resulted in episode of loss of consciousness. Admission November 28, 2018 after episode of syncope. She has been sitting in her home. She got up to talk on the phone. Within several seconds of standing she felt lightheaded, diaphoretic, and had sensation of chest discomfort. She lost consciousness. She struck her head. She did not know how long she was unconscious. The episode was not witnessed. She did contact her son when she regained consciousness. She was brought by EMS to the emergency department. When she had awakened the chest discomfort had resolved. In the ambulance she stated she had an episode of chest discomfort relieved within a few minutes with sublingual nitroglycerin. She described the chest discomfort as a chest pressure. She was discharged November 30. Cardiac enzymes during the admission were normal. An echocardiogram revealed normal LV systolic function. Grade 1 LV diastolic dysfunction. Moderate aortic valve sclerosis. Trace mitral regurgitation. After discharge she had a cardiac event monitor from December 05- January 03, 2019. It revealed sinus rhythm, borderline first-degree AV block, IVCD, occasional PAC, occasional PVC. No inappropriate pauses. No significant AV block. No sustained or nonsustained arrhythmias. During the November admission CT scan of her head was unremarkable. No evidence of an acute process. Allergies Allergy/AdvReac Type Severity Reaction Status Date / Time Sulfa (Sulfonamide Allergy Intermediate RASH/PRURIT Verified 06/13/20 12:03 Antibiotics) IS sulfamethoxazole Allergy Unverified 06/13/20 12:03 [From Bactrim] trimethoprim [From Bactrim] Allergy Unverified 06/13/20 12:03 omeprazole AdvReac Intermediate interacts Verified 06/13/20 12:03 w/ clopidigrol chlorpropamide AdvReac Mild N/V Verified 06/13/20 12:03 ARI Inhibitors AdvReac Unknown AVOIDS Verified 06/13/20 12:03 SECONDARY TO "OTHER MEDICATIONS" PER PT Home Medications Medication Instructions Recorded Confirmed Type Glucagon Emergency Kit (human) 1 dose SUBCUT UD PRN 04/23/18 06/13/20 History aspirin 81 mg PO QAM 04/23/18 06/13/20 History cinnamon bark [Cinnamon] 1,000 mg PO DAILY PRN 04/23/18 06/13/20 History docusate sodium 100 mg PO HS 04/23/18 06/13/20 History fluticasone propionate [Flonase 1 spray INTRANASAL BID PRN 04/23/18 06/13/20 History Allergy Relief] multivitamin [Multiple Vitamins] 1 tab PO QDL 04/23/18 06/13/20 History Metamucil 1 tbsp PO HS 11/28/18 06/13/20 History iron 18 mg PO QDL 11/28/18 06/13/20 History calcium 1 tab PO Q OTHER DAY tab 01/21/19 06/13/20 History [id number]-[id number]-[id number]-[id number]-Vq-boron 250 mg-40 mg-125 unit tablet albuterol sulfate 90 mcg/actuation 2 puff INHALATION QID PRN #8.5 gm 05/22/19 06/13/20 Rx aerosol inhaler albuterol sulfate 2.5 mg INHALATION Q4H PRN #75 ml 06/03/19 06/13/20 Rx spironolactone 50 mg tablet 50 mg PO QAM #90 tab 08/03/19 06/13/20 Rx hydralazine 100 mg tablet 100 mg PO TID #270 tab 08/17/19 06/13/20 Rx pantoprazole 40 mg tablet,delayed 40 mg PO QAM #90 tab 10/28/19 06/13/20 Rx release BD Ultra-Fine Short Pen Needle 31 #400 ea NS 11/16/19 06/13/20 Rx gauge x 5/16" nitroglycerin 0.4 mg sublingual 0.4 mg SUBLINGUAL UD PRN #25 tab 11/18/19 06/13/20 Rx tablet tramadol 50 mg tablet See Rx Instructions .ROUTE 02/17/20 06/13/20 Rx .COMPLEX #120 tablet metoclopramide HCl 5 mg tablet 5 mg PO .COMPLEX #360 tab 03/01/20 06/13/20 Rx insulin aspart U-100 100 unit/mL See Rx Instructions SQ TID 90 Days 03/08/20 06/13/20 Rx (3 mL) subcutaneous pen #45 ml Ebonyaglar TerencePen U-100 Insulin 100 30 unit SUBCUT HS 90 Days #30 ml NS 03/23/20 06/13/20 Rx unit/mL (3 mL) subcutaneous clopidogrel 75 mg tablet 75 mg PO DAILY #90 tab 03/28/20 06/13/20 Rx gabapentin 100 mg capsule 100 mg PO TID #270 cap 03/28/20 06/13/20 Rx blood-glucose meter #1 ea 04/05/20 06/13/20 History blood sugar diagnostic #100 ea 04/06/20 06/13/20 Rx lancets 33 gauge #100 ea 04/06/20 06/13/20 Rx isosorbide mononitrate 120 mg 120 mg PO BID #180 tab 05/09/20 06/13/20 Rx tablet,extended release 24 hr bumetanide 2 mg tablet 1 mg PO QAM #90 tab 05/18/20 06/13/20 Rx carvedilol 25 mg tablet 25 mg PO BID #180 tab 06/01/20 06/13/20 Rx cefuroxime axetil 250 mg tablet 250 mg PO BID 10 Days #20 tab 06/03/20 06/13/20 Rx Past Med/Surg History Medical History (Updated 06/13/20 @ 17:34 by Sher Pack PA-C) Acute asthmatic bronchitis Anemia Asthma CAD (coronary artery disease) Chronic diastolic (congestive) heart failure Diabetic neuropathy Gastroparesis GERD (gastroesophageal reflux disease) Hyperlipidemia Hypertension Lumbar canal stenosis Osteoarthritis of knee Osteopenia Peripheral artery disease Renal artery stenosis Secondary hyperparathyroidism Sinusitis Type 2 diabetes mellitus with kidney complication, 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, with long-term current use of insulin Vitamin D deficiency Surgical History History of back surgery History of cataract surgery History of cholecystectomy History of coronary artery bypass graft History of coronary artery stent placement History of hysterectomy History of tonsillectomy S/P carpal tunnel release Family History Unknown Coronary heart disease Diabetes Brain cancer Father Kidney disease Brother COPD (chronic obstructive pulmonary disease) Prostate cancer Myocardial infarction Hypertension Heart disease Sister Lung cancer Denies family history of Rheumatoid arthritis Sudden SIDS (sudden infant syndrome) Ovarian cancer Deep vein thrombosis Osteoporosis Dyslipidemia Cerebral aneurysm Alzheimer disease Bipolar disorder Clotting disorder Crohn's disease Dementia Depression Osteoarthritis Breast cancer Schizophrenia Congenital kidney disease Gestational diabetes Colorectal cancer Pulmonary embolism Lung disease Cancer Ulcerative colitis Colonic polyp Stroke Asthma Cystic kidney disease Social History Smoking Status: Never smoker Second Hand Exposure: No; Hx Alcohol Use: No Hx Substance Use: No Preferred Language: Amharic Communication Ability: Effective Visual Impairment: No Limitations Hearing Ability: Normal Sales Promotion Officer Required: No Beliefs That Will Affect Care: Adventism Adventism Beliefs: Sikhism marital status: / Current Living Situation: Alone current occupational status: retired and disabled 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 HEENT: Head is atraumatic, normocephalic. EOM's intact. Facies symmetric. No perioral cyanosis. NECK: No JVD. JVP appears to be elevated. Carotids +2 bilaterally. CHEST/LUNGS: Bibasilar crackles. No wheezes. CVS: S1 and S2 are regular with a grade 2/6 basal systolic murmur, and a grade 1/6 apical holosystolic murmur. No gallops or rubs. PMI is nonpalpable. No lifts, heaves, or thrills. No abdominal aortic or renal bruits. ABDOMINAL EXAM: Bowel sounds are present. No masses, organomegaly, or tenderness. EXTREMITIES: No clubbing or cyanosis. No leg edema. Extremities appear to be well perfused. NEUROLOGIC EXAM: Patient is awake, alert, and oriented. Pleasant and cooperative. Answers questions appropriately. Speech is clear. Normal movement in all 4 extremities. 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 EKG 06/13/2020 at 13:42 shows: -- NSR at 85 bpm with an RBBB and T wave inversions in the inferolateral leads. -- When compared with ECG of 29-NOV-2018 12:57: -- T wave inversion now evident in inferior leads. -- T wave inversion now evident in Anterolateral leads. -- QT has shortened. EKG 06/13/2020 AT 14:33: -- Sinus rhythm with premature atrial complexes. -- Right bundle branch block. -- T wave abnormality, consider inferolateral ischemia. -- Abnormal EKG. -- When compared with EKG of 13-JUN-2020 13:42, premature atrial complexes are now present and QT has lengthened. Constitutional: WD/WN, vitals as above Eyes: normal visual bagley by confrontation and + anicteric sclerae Neck: normal visual inspection and trachea midline Respiratory: normal respiratory effort; no respiratory distress Auscultation: + crackles; no wheezes Cardiovascular: Rate/Rhythm: regular rate and regular rhythm Gastrointestinal (Abdomen): Inspection/Auscultation: abdomen not distended Percussion/Palpation: abdomen soft; abdomen nontender Musculoskeletal: Head/Neck/Chest: normocephalic and head atraumatic Neg for peripheral LE edema, + pedal pulses Skin: no rashes, warm and dry Neurologic: awake; not confused Speech / Cognition: normal speech Psychiatric: A+Ox3, euthymic affect Lymphatic: Exam as done by Staci Swift DO Results & Data Results & Data ([facility]) Vital Signs (Past 12 Hours) Vital Signs Temp Pulse Resp BP Pulse Ox 06/13/20 13:50 99 06/13/20 13:37 36.7 C 86 24 193/107 H 96 Laboratory Results Laboratory Results - last 24 hr 06/13/20 06/13/20 06/13/20 13:51 13:51 13:51 WBC 11.79 H RBC 3.54 L Hgb 10.9 L Hct 33.9 L MCV 95.8 MCH 30.8 MCHC 32.2 RDW Std Deviation 51.9 H RDW Coeff of Duy 14.7 H Plt Count 162 MPV 11.3 H Immature Gran % (Auto) 0.5 Neut % (Auto) 90.8 Lymph % (Auto) 2.7 Toombs % (Auto) 5.4 Eos % (Auto) 0.4 Baso % (Auto) 0.2 Neut # (Auto) 10.70 H Lymph # (Auto) 0.32 L Toombs # (Auto) 0.64 H Eos # (Auto) 0.05 Baso # (Auto) 0.02 Immature Gran # (Auto) 0.06 H PT 11.8 INR 1.1 APTT 25.4 PTT Ratio 0.9 Sodium 137 Potassium 4.2 Chloride 105 Carbon Dioxide 27 Anion Gap 5.0 BUN 64 H Creatinine 2.11 H Est Cr Clr Drug Dosing 25.3 Est GFR ( Amer) 25.3 Est GFR (Non-Af Amer) 21.9 BUN/Creatinine Ratio 30.1 H Glucose 210 H Calcium 9.3 Total Bilirubin 0.5 AST 24 ALT 25 Alkaline Phosphatase 38 L Troponin I 3.050 H* NT-Pro-B Natriuret Pep Total Protein 6.9 Albumin 3.0 L Globulin 3.9 Albumin/Globulin Ratio 0.8 L Urine Color Urine Appearance Urine pH Ur Specific Molena Urine Protein Urine Glucose (UA) Urine Ketones Urine Blood Urine Nitrite Urine Bilirubin Urine Urobilinogen Ur Leukocyte Esterase COVID-19 Eval Order SARS-CoV-2 (PCR) Influenza Type A (PCR) Influenza Type B (PCR) RSV (RT-PCR) 06/13/20 06/13/20 06/13/20 13:51 14:15 14:15 WBC RBC Hgb Hct MCV MCH MCHC RDW Std Deviation RDW Coeff of Duy Plt Count MPV Immature Gran % (Auto) Neut % (Auto) Lymph % (Auto) Toombs % (Auto) Eos % (Auto) Baso % (Auto) Neut # (Auto) Lymph # (Auto) Toombs # (Auto) Eos # (Auto) Baso # (Auto) Immature Gran # (Auto) PT INR APTT PTT Ratio Sodium Potassium Chloride Carbon Dioxide Anion Gap BUN Creatinine Est Cr Clr Drug Dosing Est GFR ( Amer) Est GFR (Non-Af Amer) BUN/Creatinine Ratio Glucose Calcium Total Bilirubin AST ALT Alkaline Phosphatase Troponin I NT-Pro-B Natriuret Pep 60819 H Total Protein Albumin Globulin Albumin/Globulin Ratio Urine Color Urine Appearance Urine pH Ur Specific Molena Urine Protein Urine Glucose (UA) Urine Ketones Urine Blood Urine Nitrite Urine Bilirubin Urine Urobilinogen Ur Leukocyte Esterase COVID-19 Eval Order CovFluRsv at [facility] SARS-CoV-2 (PCR) POSITIVE A* Influenza Type A (PCR) Negative Influenza Type B (PCR) Negative RSV (RT-PCR) Negative 06/13/20 16:46 WBC RBC Hgb Hct MCV MCH MCHC RDW Std Deviation RDW Coeff of Duy Plt Count MPV Immature Gran % (Auto) Neut % (Auto) Lymph % (Auto) [place] % (Auto) Eos % (Auto) Baso % (Auto) Neut # (Auto) Lymph # (Auto) [place] # (Auto) Eos # (Auto) Baso # (Auto) Immature Gran # (Auto) PT INR APTT PTT Ratio Sodium Potassium Chloride Carbon Dioxide Anion Gap BUN Creatinine Est Cr Clr Drug Dosing Est GFR ( Amer) Est GFR (Non-Af Amer) BUN/Creatinine Ratio Glucose Calcium Total Bilirubin AST ALT Alkaline Phosphatase Troponin I NT-Pro-B Natriuret Pep Total Protein Albumin Globulin Albumin/Globulin Ratio Urine Color Pending Urine Appearance Pending Urine pH Pending Ur Specific [place] Pending Urine Protein Pending Urine Glucose (UA) Pending Urine Ketones Pending Urine Blood Pending Urine Nitrite Pending Urine Bilirubin Pending Urine Urobilinogen Pending Ur Leukocyte Esterase Pending COVID-19 Eval Order SARS-CoV-2 (PCR) Influenza Type A (PCR) Influenza Type B (PCR) RSV (RT-PCR) Diagnostic Findings CXR 06/13/2020: FINDINGS: Cardiac silhouette is enlarged, unchanged. Prior median sternotomy. No pneumothorax. Blunting of the costophrenic angles. Pulmonary vascular congestion with interstitial coarsening and patchy bilateral airspace opacities. Degenerative changes of the shoulders and spine. Cervical spinal fusion hardware. IMPRESSION: 1. Cardiomegaly with pulmonary vascular congestion, interstitial coarsening and ill-defined left greater than right airspace opacities suggestive of pulmonary edema versus multifocal pneumonia. 2. Trace pleural effusions. Medications Administered Discontinued Medications Furosemide (Furosemide 40 Mg/4 Ml Vial) 40 mg IV NOW STA Stop: 06/13/20 14:39 Last Admin: 06/13/20 14:57 Dose: 40 mg Documented by: [id number] Code Status & VTE Plan Code Status DNR/DNI VTE Prophylaxis Plan VTE Prophylaxis will be ordered: Yes Supervising Physician Co-Signing Physician Notes Pt seen and examined by me. States she is no longer SOB at rest since being put on O2 an given lasix in the ED. Denies chest pain. Tolerating PO without issue. Agree with HPI/ROS as noted by PA See above for my exam in PE section Agree with plan as outlined above PNA vs pulmonary edema on CXR Elevated WBC, BNP COVID +, pt with 1st dose of vaccine yesterday Cr is around baseline, monitor Elevated trop, serials pending EKG with RBBB Likely demand ischemia Baseline plavix, aspirin use PG Care Time/CCT Total # of Minutes Spent Total Time Spent with Patient: Total time spent is greater than 50% in coordination of care (as documented) at patient's floor/unit and/or counseling patient:50 Coding Level of Care Code 33949 Initial Inpt Care Lvl 3 Diagnoses Congestive heart failure I50.9 Heart failure chronicity: acute Heart failure type: unspecified Elevated troponin R77.8 CAD (coronary artery disease) I25.10 Hypertension I10 Type 2 diabetes mellitus with kidney complication, with long-term current use of insulin E11.29; Z79.4 COVID-19 U07.1 Time Spent (min) 70 (1) Congestive heart failure Heart failure chronicity: acute Heart failure type: unspecified Qualified C ode(s): I50.9 - Heart failure, unspecified
[2020-06-13 17:38] LABS: Appearance Urine Clear (Clear); Bacteria Urine Automated 4+ (Negative); Bilirubin Urine Negative (Negative); Blood Urine Negative (Negative); Color Urine Yellow; Epithelial Cell Urine Auto 0-5 /lpf (0-5); Glucose Urine UA Negative (Negative); Ketones Urine Negative (Negative); Leukocyte Esterase Urine Negative (Negative); Nitrite Urine Negative (Negative); Protein Urine 2+ (Negative); RBC Urine Automated 0-4 /hpf (0-4); Specific Gravity Urine 1.012 (1.000-1.030); Urobilinogen Urine Negative (Negative); WBC Urine Automated >30 /hpf (0-5)
--- NOTE | 2020-06-13 18:07 | CT Scan Report ---
CT OF THE CHEST WITHOUT IV CONTRAST CLINICAL HISTORY: Infiltrates on CXR, +COVID COMPARISON STUDY: Chest radiograph June 13, 2020. CT DOSE: 621.55 mGycm TECHNIQUE: Axial images of the chest were obtained without IV contrast. Images were reviewed in the axial, sagittal, and coronal planes. IV contrast was not administered for this examination. Automat ed exposure control was utilized for the study. A dose lowering technique was utilized adhering to t he principles of ALARA. FINDINGS: There are median sternotomy wires. Moderate cardiomegaly is noted. There is extensive [place] artery calcification. No pericardial effusion is noted. Small left and trace right pleural effus ions are noted. There is no pneumothorax. Central airways are patent. The lungs are suboptimally asse ssed due to respiratory motion. Moderate multifocal groundglass opacities are noted within the lungs with additional small nodular irregular opacities within the lungs. There is no lobar consolidation. There is no cavitation. No thoracic lymphadenopathy is present. A small hiatal hernia is present. The gallbladder is surgically absent. Extensive vascular calcification within the upper abdomen is incid entally noted. IMPRESSION: 1. Moderate multifocal groundglass and small nodular irregular opacities within the lungs suggestive of an infectious process. Lungs suboptimally assessed given respiratory motion. A follow up chest CT in 3 months to ensure resolution is recommended. 2. Small left and trace right pleural effusions. 3. Moderate cardiomegaly. Extensive coronary artery calcification. ACT 112: Negative or not required by law. Electronically signed by: Zaheer Marquez M.D. 06/13/2020 6:06 PM
[2020-06-13] MEDS ORDERED: ONDANSETRON INJ 2 MG/ML 2 ML VIAL IV PRN (19:53)
[2020-06-13] MEDS ORDERED: ZOLPIDEM TARTRATE 5 MG TAB PO PRN (19:53)
[2020-06-13] MEDS ORDERED: ALUMINUM/MAGNESIUM SUSP 30 ML UDC PO PRN (19:53)
[2020-06-13] MEDS ORDERED: NITROGLYCERIN SL 0.4 MG/TAB TAB SL PRN ×2 (19:53)
[2020-06-13] MEDS ORDERED: MAGNESIUM HYDROXIDE SUSP 30 ML UDC PO PRN (19:53)
[2020-06-13] MEDS ORDERED: POLYETHYLENE (MIRALAX) 17 GM PACK PO PRN (19:53)
[2020-06-13] MEDS ORDERED: FLUTICASONE PROPIONATE NA SPR 16 GM BTL PRN (20:05)
[2020-06-13] MEDS ORDERED: ALBUTEROL HFA 8 GM INHALER INH PRN (20:05)
[2020-06-13] MEDS ORDERED: ALBUTEROL 0.083% NEBU SOLN 3 ML VIAL INH PRN (20:05)
[2020-06-13] MEDS ORDERED: PHARMACY GLYCEMIC MGMT CONSULT PRN (20:10)
[2020-06-13] MEDS ORDERED: GLUCOSE 10 TABS/TUBE PO PRN (20:15)
[2020-06-13] MEDS ORDERED: GLUCAGON FOR INJ 1 MG VIAL IM PRN (20:15)
[2020-06-13] MEDS ORDERED: DEXTROSE 50% 50 ML SYRINGE IV PRN (20:15)
[2020-06-13] MEDS ORDERED: GLUCOSE 40% GEL 15 GM TUBE PO PRN (20:15)
[2020-06-13] MEDS ORDERED: CARBOHYDRATES FOR HYPOGLYCEMIA PO PRN (20:15)
[2020-06-13] MEDS: ISOSORBIDE MONO EXTENDED REL 60 MG TABCR PO SCH (21:00)
[2020-06-13] MEDS: DOCUSATE SODIUM 100 MG CAP PO SCH (21:41)
[2020-06-13] MEDS: POTASSIUM CHLORIDE 10 MEQ TABCR PO SCH (21:42)
[2020-06-13] MEDS: METOCLOPRAMIDE HCL 5 MG TABLET PO SCH (21:42)
[2020-06-13] MEDS: GABAPENTIN 100 MG CAP PO SCH (21:42)
[2020-06-13] MEDS: PSYLLIUM 58.6% POWDER PACKET PO SCH (21:43)
[2020-06-13] MEDS: hydrALAZINE TAB 50 MG TAB PO SCH (21:44)
[2020-06-13] MEDS: HEPARIN SOD 5,000 UNIT/0.5 ML VIAL SQ SCH (21:45)
[2020-06-13] MEDS: carvediloL 25 MG TAB PO SCH (21:46)
[2020-06-13] MEDS: BUMETANIDE 2 MG in SYRINGE 0 ML IV SCH (21:47)
[2020-06-13] MEDS: INSULIN ASPART 100 UNITS/ML 3 ML PEN SC SCH (21:47)
[2020-06-13] MEDS: INSULIN GLARGINE SOLOSTAR 100 UNITS/ML 3 ML PEN SQ SCH (22:43)
[2020-06-14] MEDS: INSULIN ASPART 100 UNITS/ML 3 ML PEN SC SCH ×6 (00:01→20:42)
[2020-06-14] MEDS: ACETAMINOPHEN 325 MG TAB PO PRN ×3 (04:21→20:47)
[2020-06-14 06:26] LABS: Basophils # (auto) 0.03 K/uL (0-0.2); Basophils % (auto) 0.6 %; Eosinophils # (auto) 0.11 K/uL (0-0.5); Eosinophils % (auto) 2.2 %; Hematocrit (blood only) 30.7 % (37-47); Hemoglobin 9.8 g/dL (12.0-16.0); Immature Granulocytes # (auto) 0.01 K/uL (0.00-0.02); Immature Granulocytes % (auto) 0.2 %; Lymphocytes # (auto) 0.59 K/uL (1.2-3.4); Mean Corpuscular Hemoglobin 30.7 pg (25-34); Mean Corpuscular Hgb Conc 31.9 g/dL (32-36); Mean Corpuscular Volume 96.2 fL (80-100); Mean Platelet Volume 11.5 fL (7.4-10.4); Monocytes # (auto) 0.36 K/uL (0.11-0.59); Monocytes % (auto) 7.3 %; Neutrophils % (auto) 77.7 %; Platelet Count 158 K/uL (130-400); RDW Coefficient of Variation 14.9 % (11.5-14.5); Red Blood Count 3.19 M/uL (4.2-5.4)
[2020-06-14] MEDS: HEPARIN SOD 5,000 UNIT/0.5 ML VIAL SQ SCH ×2 (06:35→12:40)
[2020-06-14 06:39] LABS: BUN Creatinine Ratio 31.9 (10-20); Calcium 9.3 mg/dl (8.5-10.1); Creatinine Clr Calc Pharmacy 25.6 ml/min; Est GFR (African American) 26.4; Est GFR (Non-African American) 22.8; Potassium 3.5 mmol/L (3.5-5.1)
[2020-06-14 07:25] LABS: Estimated Average Glucose 171 mg/dl; Hemoglobin A1C 7.6 % (4.5-5.6)
[2020-06-14] MEDS: BUMETANIDE 2 MG in SYRINGE 0 ML IV SCH ×2 (07:25→18:28)
[2020-06-14] MEDS: CALCIUM 600MG + VIT D 400 IU TAB PO SCH (07:26)
[2020-06-14] MEDS: carvediloL 25 MG TAB PO SCH ×2 (07:26→20:40)
[2020-06-14] MEDS: SPIRONOLACTONE 25 MG TAB PO SCH (07:26)
[2020-06-14] MEDS: CLOPIDOGREL BISULFATE 75 MG TAB PO SCH (07:27)
[2020-06-14] MEDS: PANTOprazole 40 MG TAB PO SCH (07:27)
[2020-06-14] MEDS: ISOSORBIDE MONO EXTENDED REL 60 MG TABCR PO SCH ×2 (07:27→20:40)
[2020-06-14] MEDS: hydrALAZINE TAB 50 MG TAB PO SCH ×3 (07:27→20:39)
[2020-06-14] MEDS: METOCLOPRAMIDE HCL 5 MG TABLET PO SCH ×4 (07:28→20:42)
[2020-06-14] MEDS: ASPIRIN 81 MG ECTAB PO SCH (07:28)
[2020-06-14] MEDS: GABAPENTIN 100 MG CAP PO SCH ×3 (07:28→20:39)
[2020-06-14] MEDS: POTASSIUM CHLORIDE 10 MEQ TABCR PO SCH ×2 (07:28→20:40)
[2020-06-14] MEDS: MULTIVITAMIN TAB PO SCH (11:06)
[2020-06-14] MEDS: FERROUS SULFATE 325 MG TAB PO SCH (11:06)
--- NOTE | 2020-06-14 12:18 | Hospitalist Progress Note ---
Date of Service June 14, 2020 Assessment & Plan (1) Congestive heart failure: Acute exacerbation of diastolic heart failure. Likely due to change in home Bumex. - Monitor daily body weights, I&O's. - Continue Spironolactone 50 mg daily. - Continue beta pamela, nitrate, and other usual cardiac medications. - Continue IV Bumex 2mg b.i.d. -> Improving today. Less shortness of breath and edema. - Cardiology consulted. 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 Troponin was 3.0 on admission. - Unclear whether this is ACS vs. demand ischemia. Troponin quite high and EKG clearly shows new ST depressions and TWI in lateral leads compared to the prior I see from 2019. - Continue ASA, Plavix, Coreg, & Imdur - Cardiology consulted (3) COVID-19: Some shortness of breath, but also explained by cardiac issues. CT chest with multifocal ground-glass and small nodular irregular opacities within the lungs suggestive of an infectious process. - Get repeat CT in 3 months. - Received her 1st COVID vaccine on 06/12/2020. - Given she is comfortable on room air, will defer steroids or remdesivir at this time. (4) Hypertension: BP up to 170/70 today. - Continue Coreg, hydralazine, Imdur, spironolactone - Continue diuresis (5) Type 2 diabetes mellitus with kidney complication, with long-term current use of insulin: A1c was 7.5%. - Continue long acting insulin - Presently on glargine 30 units HS. - Sliding scale insulin - Glycemic pharmacy consult placed - Will watch sugars. Did drop slightly overnight. (6) DVT prophylaxis: Presently on heparin 7,500 units SQ Q12h -> May switch to heparin gtt if cardiology feels appropriate. Admission and Anticipated Discharge Date Admission Date: June 13, 2020 Subjective Feeling much better today. Less shortness of breath. Minimal swelling in the legs. Reports no fevers/chills, chest pain, abdominal pain, nausea, or vomiting. Physical Exam Constitutional: WD/WN, vitals as above Eyes: EOM intact bilaterally; no conjunctival abnormality ENMT: external ear and nose normal, oropharynx normal Neck: trachea midline, no thyromegaly normal visual inspection Respiratory: normal respiratory effort, lungs clear to auscultation no respiratory distress Cardiovascular: Rate/Rhythm: regular rate and regular rhythm Heart Sounds: normal S1 and normal S2 Vessels: no JVD Extremities: + edema (Trace on both legs.) Gastrointestinal (Abdomen): Inspection/Auscultation: abdomen normal to inspection; abdomen not distended Musculoskeletal: no cyanosis or clubbing, extremities motor strength 5/5 Skin: no rashes, warm and dry Neurologic: moves all extremities and awake Psychiatric: Orientation: alert, oriented to person and cooperative Results & Data Results & Data ([facility]) Vital Signs (Past 12 Hours) Vital Signs Temp Pulse Pulse Resp BP Pulse Ox 06/14/20 11:26 36.4 C L 80 19 171/72 H 94 06/14/20 09:00 78 06/14/20 07:23 36.9 C 86 18 144/72 H 99 06/14/20 04:26 37 C 89 15 143/90 H 97 PG Care Time/CCT Total # of Minutes Spent Total Time Spent with Patient: Total time spent is greater than 50% in coordination of care (as documented) at patient's floor/unit and/or counseling patient: Coding Level of Care Code 03204 Subseq Hosp Care Lvl 3 Diagnoses Congestive heart failure I50.9 Heart failure chronicity: acute Heart failure type: unspecified Elevated troponin R77.8 COVID-19 U07.1 Hypertension I10 Type 2 diabetes mellitus with kidney complication, with long-term current use of insulin E11.29; Z79.4 DVT prophylaxis Z29.9 (1) Congestive heart failure Heart failure chronicity: acute Heart failure type: unspecified Qualified Code(s): I50.9 - Heart failure, unspecified
--- NOTE | 2020-06-14 13:17 | Pharmacy Report ---
Pharmacy Glycemic Short Note 2 - Date of Service June 14, 2020 - Glycemic Short BSG Results (Last 24 hours): 06/13/20 06/13/20 06/13/20 13:51 21:39 23:57 Glucose 210 H POC Glucose 191 H 151 H 06/14/20 06/14/20 06/14/20 04:18 05:28 07:46 Glucose 72 POC Glucose 97 103 H 06/14/20 11:35 Glucose POC Glucose 210 H OUTPATIENT ANTIDIABETIC REGIMEN: * Basaglar 30 units HS + Novolog 13 units TIDM + SSI * A1c 7.6% 06/14 ASSESSMENT: * HH admitted with SOB, CHF and was also COVID+, although without typical symptoms other than SOB * BSG trended down overnight with a fasting of 103 mg/dL- will continue current 30 units of lantus in the evening (this is home dose) * Lunch BSG slightly elevated, however AM insulin was given 0900, therefore will continue current novolog parameters, dosed at weight based stress of 3. Will continue to monitor for changes PLAN FOR INPATIENT GLYCEMIC CONTROL: * Hold outpatient oral diabetes medications * Basal insulin * [id number] units HS * Bolus insulin * NovoLog per scale ACHS or Q6hrs while NPO * Goal Range: Low 110 mg/dL - High 140 mg/dL * Correction Factor: 15 mg/dL/unit * Nutritional / Prandial insulin per carb ratio of 1 unit per 5 grams CHO consumed
--- NOTE | 2020-06-14 16:00 | Cardiology Consultation ---
Date of Consultation June 14, 2020 Assessment & Plan (1) Congestive heart failure: Her breathing difficulty is likely related both to pulmonary vascular congestion and a viral pneumonia. Her significant improvement in breathing is likely secondary to diuresis suggesting that a lot of her difficulty was related to pulmonary edema. This is likely related to known diastolic heart failure although in the setting of an elevated troponin, there is the possibility of systolic heart failure as well. I will continue her diuresis with bumetanide and monitor her electrolytes and renal function closely. (2) Elevated troponin: Her biomarkers are significantly elevated. This could be related to an acute coronary syndrome, demand ischemia or even the myopathic effect of coronavirus. Most concerning etiology would be an acute coronary syndrome. She did describe some transient chest pain although the duration appeared quite brief. The sudden nature of her breathing difficulty would be concerning for an acute coronary syndrome. I think would be reasonable to provide systemic anticoagulation for least 24 hours. For most patients, we would likely advocate early invasive strategy given her known history of coronary disease and elevated biomarkers. However, she has significant renal impairment which places her at significant risk of contrast nephropathy. She also has a history of surgical revascularization and evaluation of her bypass grafts and [place] coronaries would put her at additional risk of contrast nephropathy. She is not currently in favor of an invasive strategy. I think in the absence of recurrent symptoms of chest discomfort or pulmonary congestion we can attempt to manage her conservatively. I will start her on systemic anticoagulation at this time. Continue dual anti- platelet therapy. (3) CAD (coronary artery disease): She had surgical revascularization in 1999. She had her last percutaneous intervention in 2010. This involved stenting of the distal left main and circumflex artery. She is known to have occlusion of a radial graft and 2 vein grafts. Reportedly the ARGUETA to LAD is patent. She has been maintained on dual anti-platelet therapy, beta blockade and until recently high-dose atorvastatin. (4) Hyperlipidemia: Her atorvastatin was recently discontinued over concerns of myalgias. However, given her current event and extensive history of coronary disease I would advocate Re initiating therapy. (5) Hypertension: Her blood pressure continues to be elevated. This alone could have contributed to some decompensation of known diastolic heart failure. I think she would benefit from more aggressive blood pressure control perhaps with addition of amlodipine. History of Present Illness Reason for Consultation: Elevated troponin, congestive heart failure Requesting Physician: Skyler Attending Physician: Jett Holland MD History of Present Illness The patient is a 71-year-old woman with an extensive history of cardiovascular disease including peripheral arterial disease who recently received her 1st COVID-19 vaccination. Patient states that shortly after receiving the vaccination she began to experience some symptoms of dyspnea. This became quite severe when she was performing some mild housework at home. During this activ ity she also noticed the presence of some chest discomfort. She recognizes this as her typical angina but was mild in severity. The symptoms lasted a few minutes and then resolved with discontinuation of the activity. However, her dyspnea persisted and she presented for evaluation. In the outpatient setting she was noted to be quite short of breath and had an EKG that was abnormal. She was subsequently sent to the emergency room and admitted to the hospital for treatment. The patient was treated for decompensated congestive heart failure and was also discovered to have evidence of active COVID-19 infection. She did undergo diuresis at the time of my interview her breathing is much better. She states she occasionally will have symptoms of her typical angina. These occur fairly randomly and not always associated with activity. The overall pattern is not seem to have changed recently. She has not had any severe symptoms. She is very sedentary individual who appears to be limited by lower extremity discomfort and instability. She ambulates with a walker. She does not endorse symptoms of orthopnea or paroxysmal nocturnal dyspnea. She does not weigh herself regularly at home and has not noticed any lower extremity edema. She did have some dizziness associated with the recent breathing difficulty, but generally does not have dizziness, lightheadedness, palpitations. She did suffer an episode of syncope in 2019. No recent recurrence. Allergies Allergy/AdvReac Type Severity Reaction Status Date / Time Sulfa (Sulfonamide Allergy Intermediate RASH/PRURIT Verified 06/13/20 12:03 Antibiotics) IS sulfamethoxazole Allergy Unverified 06/13/20 12:03 [From Bactrim] trimethoprim [From Bactrim] Allergy Unverified 06/13/20 12:03 omeprazole AdvReac Intermediate interacts Verified 06/13/20 12:03 w/ clopidigrol chlorpropamide AdvReac Mild N/V Verified 06/13/20 12:03 ARI Inhibitors AdvReac Unknown AVOIDS Verified 06/13/20 12:03 SECONDARY TO "OTHER MEDICATIONS" PER PT Home Medications Medication Instructions Recorded Confirmed Type Glucagon Emergency Kit (human) 1 dose SUBCUT UD PRN 04/23/18 06/13/20 History aspirin 81 mg PO QAM 04/23/18 06/13/20 History cinnamon bark [Cinnamon] 1,000 mg PO DAILY PRN 04/23/18 06/13/20 History docusate sodium 100 mg PO HS 04/23/18 06/13/20 History fluticasone propionate [Flonase 1 spray INTRANASAL BID PRN 04/23/18 06/13/20 History Allergy Relief] multivitamin [Multiple Vitamins] 1 tab PO QDL 04/23/18 06/13/20 History Metamucil 1 tbsp PO HS 11/28/18 06/13/20 History iron 18 mg PO QDL 11/28/18 06/13/20 History calcium 1 tab PO Q OTHER DAY tab 01/21/19 06/13/20 History [id number]-Wg-boron 250 mg-40 mg-125 unit tablet albuterol sulfate 90 mcg/actuation 2 puff INHALATION QID PRN #8.5 gm 05/22/19 06/13/20 Rx aerosol inhaler albuterol sulfate 2.5 mg INHALATION Q4H PRN #75 ml 06/03/19 06/13/20 Rx spironolactone 50 mg tablet 50 mg PO QAM #90 tab 08/03/19 06/13/20 Rx hydralazine 100 mg tablet 100 mg PO TID #270 tab 08/17/19 06/13/20 Rx pantoprazole 40 mg tablet,delayed 40 mg PO QAM #90 tab 10/28/19 06/13/20 Rx release BD Ultra-Fine Short Pen Needle 31 #400 ea NS 11/16/19 06/13/20 Rx gauge x 5/16" nitroglycerin 0.4 mg sublingual 0.4 mg SUBLINGUAL UD PRN #25 tab 11/18/19 06/13/20 Rx tablet tramadol 50 mg tablet See Rx Instructions .ROUTE 02/17/20 06/13/20 Rx .COMPLEX #120 tablet metoclopramide HCl 5 mg tablet 5 mg PO .COMPLEX #360 tab 03/01/20 06/13/20 Rx insulin aspart U-100 100 unit/mL See Rx Instructions SQ TID 90 Days 03/08/20 06/13/20 Rx (3 mL) subcutaneous pen #45 ml Basaglar Harpal U-100 Insulin 100 30 unit SUBCUT HS 90 Days #30 ml NS 03/23/20 06/13/20 Rx unit/mL (3 mL) subcutaneous clopidogrel 75 mg tablet 75 mg PO DAILY #90 tab 03/28/20 06/13/20 Rx gabapentin 100 mg capsule 100 mg PO TID #270 cap 03/28/20 06/13/20 Rx blood-glucose meter #1 ea 04/05/20 06/13/20 History blood sugar diagnostic #100 ea 04/06/20 06/13/20 Rx lancets 33 gauge #100 ea 04/06/20 06/13/20 Rx isosorbide mononitrate 120 mg 120 mg PO BID #180 tab 05/09/20 06/13/20 Rx tablet,extended release 24 hr bumetanide 2 mg tablet 1 mg PO QAM #90 tab 05/18/20 06/13/20 Rx carvedilol 25 mg tablet 25 mg PO BID #180 tab 06/01/20 06/13/20 Rx cefuroxime axetil 250 mg tablet 250 mg PO BID 10 Days #20 tab 06/03/20 06/13/20 Rx Patient History Medical History Acute asthmatic bronchitis Anemia Asthma CAD (coronary artery disease) Chronic diastolic (congestive) heart failure Diabetic neuropathy Gastroparesis GERD (gastroesophageal reflux disease) Hyperlipidemia Hypertension Lumbar canal stenosis Osteoarthritis of knee Osteopenia Peripheral artery disease Renal artery stenosis Secondary hyperparathyroidism Sinusitis Type 2 diabetes mellitus with kidney complication, 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, with long-term current use of insulin Vitamin D deficiency Surgical History History of back surgery History of cataract surgery History of cholecystectomy History of coronary artery bypass graft History of coronary artery stent placement History of hysterectomy History of tonsillectomy S/P carpal tunnel release Family History Unknown Coronary heart disease Diabetes Brain cancer Father Kidney disease Brother COPD (chronic obstructive pulmonary disease) Prostate cancer Myocardial infarction Hypertension Heart disease Sister Lung cancer Denies family history of Rheumatoid arthritis Sudden SIDS (sudden infant syndrome) Ovarian cancer Deep vein thrombosis Osteoporosis Dyslipidemia Cerebral aneurysm Alzheimer disease Bipolar disorder Clotting disorder Crohn's disease Dementia Depression Osteoarthritis Breast cancer Schizophrenia Congenital kidney disease Gestational diabetes Colorectal cancer Pulmonary embolism Lung disease Cancer Ulcerative colitis Colonic polyp Stroke Asthma Cystic kidney disease Social History Smoking Status: Never smoker Second Hand Exposure: No; Hx Alcohol Use: No Hx Substance Use: No Preferred Language: Swedish Communication Ability: Effective Visual Impairment: No Limitations Hearing Ability: Normal [employer] Required: No Beliefs That Will Affect Care: None marital status: / Current Living Situation: Alone current occupational status: retired and disabled 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[employer], 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 Physical Exam Physical Exam: She is alert and oriented x3. Mood affect appear normal. She answered all questions appropriately. HEENT: Sclerae are anicteric. Pupils are equal and reactive to light and accommodation. Extraocular movements were intact. Neuro: Cranial nerves intact Neck: Examination of the submandibular region did not reveal any significant lymphadenopathy. Carotids are palpable bilaterally and free of bruits on auscultation. There was no evidence of jugular venous distention. The thyroid was not enlarged. Lungs: Lungs are clear to auscultation bilaterally. There are no rales wheezes or rhonchi. She has normal respiratory effort without use of accessory muscles. There is normal pulmonary excursion. Cardiac: The rhythm was regular with occasional ectopy. S1 and S2 were normal. There are no murmurs on examination. The PMI was not markedly displaced on palpation. Abdomen: The abdomen was soft and nontender. Extremities: Patient has bilateral radial pulses that are equal in intensity. There is no evidence cyanosis or clubbing. There was no evidence of significant peripheral edema bilaterally. Skin: There are no rashes noted on examination today. Results & Data ([facility]) Vital Signs (Past 12 Hours) Vital Signs Temp Pulse Pulse Resp BP BP Pulse Ox 06/14/20 15:36 36.9 C 78 16 176/67 H 96 06/14/20 11:26 36.4 C L 80 19 171/72 H 94 06/14/20 09:00 78 06/14/20 07:23 36.9 C 86 18 144/72 H 99 06/14/20 04:26 37 C 89 15 143/90 H 97 Laboratory Results Abnormal Lab Results 06/13/20 06/13/20 06/13/20 16:46 20:12 21:39 WBC RBC Hgb Hct MCV MCH MCHC RDW Std Deviation RDW Coeff of Duy Plt Count MPV Immature Gran % (Auto) Neut % (Auto) Lymph % (Auto) [place] % (Auto) Eos % (Auto) Baso % (Auto) Neut # (Auto) Lymph # (Auto) [place] # (Auto) Eos # (Auto) Baso # (Auto) Immature Gran # (Auto) Sodium Potassium Chloride Carbon Dioxide Anion Gap BUN Creatinine Est Cr Clr Drug Dosing Est GFR ( Amer) Est GFR (Non-Af Amer) BUN/Creatinine Ratio Glucose POC Glucose 191 H Estimat Average Glucose Hemoglobin A1c Calcium Troponin I 2.760 H* Urine Color Yellow Urine Appearance Clear Urine pH 5.0 Ur Specific [place] 1.012 Urine Protein 2+ H Urine Glucose (UA) Negative Urine Ketones Negative Urine Blood Negative Urine Nitrite Negative Urine Bilirubin Negative Urine Urobilinogen Negative Ur Leukocyte Esterase Negative Urine WBC (Auto) >30 H Urine RBC (Auto) 0-4 U Hyaline Cast (Auto) 1-5 U Epithel Cells (Auto) 0-5 Urine Bacteria (Auto) 4+ H 06/13/20 06/14/20 06/14/20 23:57 04:18 05:28 WBC 4.90 D RBC 3.19 L Hgb 9.8 L Hct 30.7 L MCV 96.2 MCH 30.7 MCHC 31.9 L RDW Std Deviation 53.0 H RDW Coeff of Duy 14.9 H Plt Count 158 MPV 11.5 H Immature Gran % (Auto) 0.2 Neut % (Auto) 77.7 Lymph % (Auto) 12.0 [place] % (Auto) 7.3 Eos % (Auto) 2.2 Baso % (Auto) 0.6 Neut # (Auto) 3.80 Lymph # (Auto) 0.59 L [place] # (Auto) 0.36 Eos # (Auto) 0.11 Baso # (Auto) 0.03 Immature Gran # (Auto) 0.01 Sodium Potassium Chloride Carbon Dioxide Anion Gap BUN Creatinine Est Cr Clr Drug Dosing Est GFR ( Amer) Est GFR (Non-Af Amer) BUN/Creatinine Ratio Glucose POC Glucose 151 H 97 Estimat Average Glucose Hemoglobin A1c Calcium Troponin I Urine Color Urine Appearance Urine pH Ur Specific [place] Urine Protein Urine Glucose (UA) Urine Ketones Urine Blood Urine Nitrite Urine Bilirubin Urine Urobilinogen Ur Leukocyte Esterase Urine WBC (Auto) Urine RBC (Auto) U Hyaline Cast (Auto) U Epithel Cells (Auto) Urine Bacteria (Auto) 06/14/20 06/14/20 06/14/20 05:28 05:28 07:46 WBC RBC Hgb Hct MCV MCH MCHC RDW Std Deviation RDW Coeff of Duy Plt Count MPV Immature Gran % (Auto) Neut % (Auto) Lymph % (Auto) [place] % (Auto) Eos % (Auto) Baso % (Auto) Neut # (Auto) Lymph # (Auto) [place] # (Auto) Eos # (Auto) Baso # (Auto) Immature Gran # (Auto) Sodium 140 Potassium 3.5 D Chloride 105 Carbon Dioxide 28 Anion Gap 7.0 BUN 65 H Creatinine 2.04 H Est Cr Clr Drug Dosing 25.6 Est GFR ( Amer) 26.4 Est GFR (Non-Af Amer) 22.8 BUN/Creatinine Ratio 31.9 H Glucose 72 POC Glucose 103 H Estimat Average Glucose 171 Hemoglobin A1c 7.6 H Calcium 9.3 Troponin I Urine Color Urine Appearance Urine pH Ur Specific [place] Urine Protein Urine Glucose (UA) Urine Ketones Urine Blood Urine Nitrite Urine Bilirubin Urine Urobilinogen Ur Leukocyte Esterase Urine WBC (Auto) Urine RBC (Auto) U Hyaline Cast (Auto) U Epithel Cells (Auto) Urine Bacteria (Auto) 06/14/20 06/14/20 11:35 13:53 WBC RBC Hgb Hct MCV MCH MCHC RDW Std Deviation RDW Coeff of Duy Plt Count MPV Immature Gran % (Auto) Neut % (Auto) Lymph % (Auto) [place] % (Auto) Eos % (Auto) Baso % (Auto) Neut # (Auto) Lymph # (Auto) [place] # (Auto) Eos # (Auto) Baso # (Auto) Immature Gran # (Auto) Sodium Potassium Chloride Carbon Dioxide Anion Gap BUN Creatinine Est Cr Clr Drug Dosing Est GFR ( Amer) Est GFR (Non-Af Amer) BUN/Creatinine Ratio Glucose POC Glucose 210 H Estimat Average Glucose Hemoglobin A1c Calcium Troponin I 0.831 H* Urine Color Urine Appearance Urine pH Ur Specific [place] Urine Protein Urine Glucose (UA) Urine Ketones Urine Blood Urine Nitrite Urine Bilirubin Urine Urobilinogen Ur Leukocyte Esterase Urine WBC (Auto) Urine RBC (Auto) U Hyaline Cast (Auto) U Epithel Cells (Auto) Urine Bacteria (Auto) PG Care Time/CCT Total # of Minutes Spent Total Time Spent with Patient: Total time spent is greater than 50% in coordination of care (as documented) at patient's floor/unit and/or counseling patient: Coding Level of Care Code 07493 Initial Inpt Care Lvl 3 Diagnoses Congestive heart failure I50.9 Heart failure chronicity: acute Heart failure type: unspecified Elevated troponin R77.8 CAD (coronary artery disease) I25.10 Hyperlipidemia E78.5 Hypertension I10 (1) Congestive heart failure Heart failure chronicity: acute Heart failure type: unspecified Qualified Code(s): I50.9 - Heart failure, unspecified
[2020-06-14] MEDS ORDERED: HEPARIN IV BOLUS 6,000 UNITS in SYRINGE 0 ML IV ONE (18:00)
[2020-06-14] MEDS: amLODIPine BESYLATE 5 MG TAB PO SCH (18:27)
[2020-06-14 19:32] LABS: INR 1.1 (0.9-1.1); Partial Thromboplastin Ratio 0.9; Partial Thromboplastin Time 26.4 Seconds (21.0-31.0); Prothrombin Time 11.6 Seconds (9.0-12.0)
[2020-06-14] MEDS: HEPARIN SODIUM/DEXTROSE 25,000 UNITS/500 ML BAG IV SCH (20:35)
[2020-06-14] MEDS: PSYLLIUM 58.6% POWDER PACKET PO SCH (20:39)
[2020-06-14] MEDS: DOCUSATE SODIUM 100 MG CAP PO SCH (20:40)
[2020-06-14] MEDS: INSULIN GLARGINE SOLOSTAR 100 UNITS/ML 3 ML PEN SQ SCH (20:41)
[2020-06-14] MEDS ORDERED: HEPARIN SOD 5,000 UNIT/0.5 ML VIAL SQ SCH (21:00)
[2020-06-15 03:05] LABS: Basophils # (auto) 0.03 K/uL (0-0.2); Basophils % (auto) 0.5 %; Eosinophils # (auto) 0.19 K/uL (0-0.5); Eosinophils % (auto) 3.3 %; Hematocrit (blood only) 30.3 % (37-47); Hemoglobin 9.9 g/dL (12.0-16.0); Immature Granulocytes # (auto) 0.04 K/uL (0.00-0.02); Immature Granulocytes % (auto) 0.7 %; Lymphocytes # (auto) 1.38 K/uL (1.2-3.4); Lymphocytes % (auto) 23.9 %; Mean Corpuscular Hemoglobin 30.9 pg (25-34); Mean Corpuscular Hgb Conc 32.7 g/dL (32-36); Mean Corpuscular Volume 94.7 fL (80-100); Mean Platelet Volume 11.7 fL (7.4-10.4); Monocytes % (auto) 10.4 %; Neutrophils # (auto) 3.53 K/uL (1.4-6.5); Neutrophils % (auto) 61.2 %; Platelet Count 162 K/uL (130-400); RDW Coefficient of Variation 14.8 % (11.5-14.5); RDW Standard Deviation 51.5 fL (36.4-46.3); White Blood Count 5.77 K/uL (4.8-10.8)
[2020-06-15 03:22] LABS: Calcium 8.6 mg/dl (8.5-10.1); Creatinine Clr Calc Pharmacy 20.5 ml/min; Est GFR (African American) 20.2; Est GFR (Non-African American) 17.4; Potassium 3.8 mmol/L (3.5-5.1)
[2020-06-15 04:05] LABS: Partial Thromboplastin Ratio > 5.0
[2020-06-15 04:06] LABS: Partial Thromboplastin Time > 139.0 Seconds (21.0-31.0)
[2020-06-15 06:28] LABS: Partial Thromboplastin Ratio 4.4
[2020-06-15 06:37] LABS: Partial Thromboplastin Time 123.2 Seconds (21.0-31.0)
[2020-06-15] MEDS: METOCLOPRAMIDE HCL 5 MG TABLET PO SCH ×4 (08:14→21:21)
[2020-06-15] MEDS: BUMETANIDE 2 MG in SYRINGE 0 ML IV SCH (08:14)
[2020-06-15] MEDS: amLODIPine BESYLATE 5 MG TAB PO SCH (08:14)
[2020-06-15] MEDS: ASPIRIN 81 MG ECTAB PO SCH (08:15)
[2020-06-15] MEDS: PANTOprazole 40 MG TAB PO SCH (08:15)
[2020-06-15] MEDS: SPIRONOLACTONE 25 MG TAB PO SCH (08:15)
[2020-06-15] MEDS: GABAPENTIN 100 MG CAP PO SCH ×3 (08:16→21:22)
[2020-06-15] MEDS: CLOPIDOGREL BISULFATE 75 MG TAB PO SCH (08:16)
[2020-06-15] MEDS: POTASSIUM CHLORIDE 10 MEQ TABCR PO SCH ×2 (08:16→21:22)
[2020-06-15] MEDS: carvediloL 25 MG TAB PO SCH ×2 (08:17→21:34)
[2020-06-15] MEDS: ISOSORBIDE MONO EXTENDED REL 60 MG TABCR PO SCH ×2 (08:17→21:22)
[2020-06-15] MEDS: hydrALAZINE TAB 50 MG TAB PO SCH ×3 (08:17→21:33)
[2020-06-15] MEDS: traMADol HCL 50 MG TABLET PO PRN ×2 (08:33→15:04)
[2020-06-15] MEDS: INSULIN ASPART 100 UNITS/ML 3 ML PEN SC SCH ×4 (08:35→21:34)
[2020-06-15] MEDS: HEPARIN SODIUM/DEXTROSE 25,000 UNITS/500 ML BAG IV SCH ×2 (08:42→18:22)
--- NOTE | 2020-06-15 09:54 | Electrocardiogram Report ---
Test Reason : Blood Pressure : / mmHG Vent. Rate : 097 BPM Atrial Rate : 097 BPM P-R Int : 126 ms QRS Dur : 128 ms QT Int : 402 ms P-R-T Axes : 104 -45 113 degrees QTc Int : 510 ms Poor data quality, interpretation may be adversely affected Normal sinus rhythm Left axis deviation Right bundle branch block T wave abnormality, consider inferolateral ischemia Abnormal ECG When compared with ECG of 13-JUN-2020 14:33, Premature atrial complexes are no longer Present QRS axis Shifted left Confirmed by Heriberto Jauregui ([id number]) on 06/15/2020 9:54:28 AM Referred By: REFERRED SELF Confirmed By:Marcus Jauregui
--- NOTE | 2020-06-15 09:59 | Electrocardiogram Report ---
Test Reason : Blood Pressure : / mmHG Vent. Rate : 071 BPM Atrial Rate : 071 BPM P-R Int : 174 ms QRS Dur : 136 ms QT Int : 434 ms P-R-T Axes : 044 -08 187 degrees QTc Int : 471 ms Normal sinus rhythm Right bundle branch block T wave abnormality, consider inferolateral ischemia Abnormal ECG When compared with ECG of 14-JUN-2020 18:09, (unconfirmed) No significant change was found Confirmed by Heriberto Jauregui ([id number]) on 06/15/2020 9:58:50 AM Referred By: REFERRED SELF Confirmed By:Marcus Jauregui
[2020-06-15] MEDS: FERROUS SULFATE 325 MG TAB PO SCH (10:58)
[2020-06-15] MEDS: MULTIVITAMIN TAB PO SCH (10:58)
--- NOTE | 2020-06-15 13:20 | Pharmacy Report ---
Pharmacy Glycemic Short Note 2 - Date of Service June 15, 2020 - Glycemic Short BSG Results (Last 24 hours): 06/14/20 06/14/20 06/15/20 16:53 20:32 02:37 Glucose 126 H POC Glucose 247 H 201 H 06/15/20 06/15/20 06/15/20 08:32 12:25 12:29 Glucose POC Glucose 131 H 326 H* 329 H* OUTPATIENT ANTIDIABETIC REGIMEN: * Basaglar 30 units HS + Novolog 13 units TIDM + SSI * A1c 7.6% 06/14 ASSESSMENT: 06/15 * Patient received 67 units of insulin yesterday, 30 of basal, 37 of prandial/correctional * Prandial BSGs remained elevated yesterday throughout the day and lunch BSG elevated despite tightened carb ratio this morning, will tighten correction factor and carb ratio further today. * Fasting BSG 131 mg/dL is within goal range, will continue with current basal dosing, however, may need increased if fasting trends upward. * Patient is on a heparin infusion that is mixed in dextrose. 06/14 * HH admitted with SOB, CHF and was also COVID+, although without typical symptoms other than SOB * BSG trended down overnight with a fasting of 103 mg/dL- will continue current 30 units of lantus in the evening (this is home dose) * Lunch BSG slightly elevated, however AM insulin was given 0900, therefore will continue current novolog parameters, dosed at weight based stress of 3. Will continue to monitor for changes PLAN FOR INPATIENT GLYCEMIC CONTROL: * Hold outpatient oral diabetes medications * Basal insulin * Lantus 30 units HS * Bolus insulin * NovoLog per scale ACHS or Q6hrs while NPO * Goal Range: Low 110 mg/dL - High 140 mg/dL * Correction Factor: 12 mg/dL/unit * Nutritional / Prandial insulin per carb ratio of 1 unit per 3.5 grams CHO consumed
[2020-06-15] MEDS ORDERED: INSULIN HUMAN REGULAR PER UNIT 9 UNITS in SYRINGE 8.91 ML IV ONE (13:45)
[2020-06-15 15:25] LABS: Partial Thromboplastin Ratio 1.5
--- NOTE | 2020-06-15 15:59 | Cardiology Progress Note ---
Date of Service June 15, 2020 Assessment & Plan (1) Congestive heart failure: Her breathing difficulty is likely related both to pulmonary vascular congestion and a viral pneumonia. She appears have affected a good diuresis. In fact, she may be intravascularly depleted with notable rise in both BUN and creatinine. Diuretics currently on hold. We will need to monitor her renal function and volume status closely before resuming diuresis. (2) Elevated troponin: Her biomarkers are significantly elevated. They have trended downward. The trajectory is consistent with a coronary syndrome. She is not currently having symptoms of angina ischemia. Her EKG is notably abnormal, but do not think there is any urgent indication for angiography. In fact, after discussion with the patient we have elected to pursue a conservative management of what could be a coronary syndrome due to renal insufficiency and risk of contrast nephropathy. We will continue her heparin currently. Will continue her dual anti-platelet therapy. Continue beta blockade. Tomorrow afternoon we can consider discontinuing the heparin. If she is ambulatory and feeling well will continue with a conservative strategy. (3) CAD (coronary artery disease): She had surgical revascularization in 1999. She had her last percutaneous intervention in 2010. This involved stenting of the distal left main and circumflex artery. She is known to have occlusion of a radial graft and 2 vein grafts. Reportedly the ARGUETA to LAD is patent. She has been maintained on dual anti-platelet therapy, beta blockade and until recently high-dose atorvastatin. (4) Hyperlipidemia: Her atorvastatin was recently discontinued over concerns of myalgias. I will resume her atorvastatin. (5) Hypertension: Started on amlodipine yesterday. Admission and Anticipated Discharge Date Admission Date: June 13, 2020 Subjective This afternoon the patient claims to be feeling quite well. She had some generalized aches and pains in felt it was difficult to get comfortable in a chair, but did not report specific chest discomfort. She states that her breathing is back to baseline. She was able to ambulate with a walker around her room briefly. She does not describe dizziness or lightheadedness. Review of Systems Review of Systems: Per HPI Physical Exam Physical Exam: She is alert and oriented x3. Mood affect appear normal. She answered all questions appropriately. HEENT: Sclerae are anicteric. Pupils are equal and reactive to light and accommodation. Extraocular movements were intact. Neuro: Cranial nerves intact Neck: Examination of the submandibular region did not reveal any significant lymphadenopathy. Carotids are palpable bilaterally and free of bruits on auscultation. Lungs: Normal respiratory effort. Some expiratory wheezing. No rales. Cardiac: The rhythm was regular with occasional ectopy. S1 and S2 were normal. Holosystolic murmur The PMI was not markedly displaced on palpation. Extremities: Patient has bilateral radial pulses that are equal in intensity. There is no evidence cyanosis or clubbing. There was no evidence of significant peripheral edema bilaterally. Skin: There are no rashes noted on examination today. Results & Data ([facility]) Vital Signs (Past 12 Hours) Vital Signs Temp Pulse Resp BP Pulse Ox 06/15/20 15:22 36.6 C 82 20 148/79 H 96 06/15/20 14:04 139/79 06/15/20 10:55 36.8 C 80 20 140/72 95 06/15/20 07:20 36.9 C 80 20 110/79 94 Laboratory Results Abnormal Lab Results 06/14/20 06/14/20 06/14/20 16:53 19:05 20:32 WBC RBC Hgb Hct MCV MCH MCHC RDW Std Deviation RDW Coeff of Duy Plt Count MPV Immature Gran % (Auto) Neut % (Auto) Lymph % (Auto) [place] % (Auto) Eos % (Auto) Baso % (Auto) Neut # (Auto) Lymph # (Auto) [place] # (Auto) Eos # (Auto) Baso # (Auto) Immature Gran # (Auto) PT 11.6 INR 1.1 APTT 26.4 PTT Ratio 0.9 Sodium Potassium Chloride Carbon Dioxide Anion Gap BUN Creatinine Est Cr Clr Drug Dosing Est GFR ( Amer) Est GFR (Non-Af Amer) BUN/Creatinine Ratio Glucose POC Glucose 247 H 201 H Calcium 06/15/20 06/15/20 06/15/20 02:37 02:37 02:37 WBC 5.77 RBC 3.20 L Hgb 9.9 L Hct 30.3 L MCV 94.7 MCH 30.9 MCHC 32.7 RDW Std Deviation 51.5 H RDW Coeff of Duy 14.8 H Plt Count 162 MPV 11.7 H Immature Gran % (Auto) 0.7 Neut % (Auto) 61.2 Lymph % (Auto) 23.9 [place] % (Auto) 10.4 Eos % (Auto) 3.3 Baso % (Auto) 0.5 Neut # (Auto) 3.53 Lymph # (Auto) 1.38 [place] # (Auto) 0.60 H Eos # (Auto) 0.19 Baso # (Auto) 0.03 Immature Gran # (Auto) 0.04 H PT INR APTT > 139.0 H* PTT Ratio > 5.0 Sodium 139 Potassium 3.8 Chloride 104 Carbon Dioxide 30 Anion Gap 5.0 BUN 77 H Creatinine 2.55 H D Est Cr Clr Drug Dosing 20.5 Est GFR ( Amer) 20.2 Est GFR (Non-Af Amer) 17.4 BUN/Creatinine Ratio 30.0 H Glucose 126 H POC Glucose Calcium 8.6 06/15/20 06/15/20 06/15/20 05:34 08:32 12:25 WBC RBC Hgb Hct MCV MCH MCHC RDW Std Deviation RDW Coeff of Duy Plt Count MPV Immature Gran % (Auto) Neut % (Auto) Lymph % (Auto) [place] % (Auto) Eos % (Auto) Baso % (Auto) Neut # (Auto) Lymph # (Auto) [place] # (Auto) Eos # (Auto) Baso # (Auto) Immature Gran # (Auto) PT INR APTT 123.2 H* PTT Ratio 4.4 Sodium Potassium Chloride Carbon Dioxide Anion Gap BUN Creatinine Est Cr Clr Drug Dosing Est GFR ( Amer) Est GFR (Non-Af Amer) BUN/Creatinine Ratio Glucose POC Glucose 131 H 326 H* Calcium 06/15/20 06/15/20 06/15/20 12:29 13:21 13:23 WBC RBC Hgb Hct MCV MCH MCHC RDW Std Deviation RDW Coeff of Duy Plt Count MPV Immature Gran % (Auto) Neut % (Auto) Lymph % (Auto) [place] % (Auto) Eos % (Auto) Baso % (Auto) Neut # (Auto) Lymph # (Auto) [place] # (Auto) Eos # (Auto) Baso # (Auto) Immature Gran # (Auto) PT INR APTT PTT Ratio Sodium Potassium Chloride Carbon Dioxide Anion Gap BUN Creatinine Est Cr Clr Drug Dosing Est GFR ( Amer) Est GFR (Non-Af Amer) BUN/Creatinine Ratio Glucose POC Glucose 329 H* 397 H* 434 H* Calcium 06/15/20 15:01 WBC RBC Hgb Hct MCV MCH MCHC RDW Std Deviation RDW Coeff of Duy Plt Count MPV Immature Gran % (Auto) Neut % (Auto) Lymph % (Auto) [place] % (Auto) Eos % (Auto) Baso % (Auto) Neut # (Auto) Lymph # (Auto) [place] # (Auto) Eos # (Auto) Baso # (Auto) Immature Gran # (Auto) PT INR APTT 41.0 H PTT Ratio 1.5 Sodium Potassium Chloride Carbon Dioxide Anion Gap BUN Creatinine Est Cr Clr Drug Dosing Est GFR ( Amer) Est GFR (Non-Af Amer) BUN/Creatinine Ratio Glucose POC Glucose Calcium PG Care Time/CCT Total # of Minutes Spent Total Time Spent with Patient: Total time spent is greater than 50% in coordination of care (as documented) at patient's floor/unit and/or counseling patient: Coding Level of Care Code 20490 Subseq Hosp Care Lvl 2 Diagnoses Congestive heart failure I50.9 Heart failure chronicity: acute Heart failure type: unspecified Elevated troponin R77.8 CAD (coronary artery disease) I25.10 Hyperlipidemia E78.5 Hypertension I10 (1) Congestive heart failure Heart failure chronicity: acute Heart failure type: unspecified Qualified Code(s): I50.9 - Heart failure, unspecified
[2020-06-15] MEDS: DOCUSATE SODIUM 100 MG CAP PO SCH (21:24)
[2020-06-15] MEDS: PSYLLIUM 58.6% POWDER PACKET PO SCH (21:24)
[2020-06-15] MEDS: INSULIN GLARGINE SOLOSTAR 100 UNITS/ML 3 ML PEN SQ SCH (21:25)
[2020-06-15 22:05] LABS: Partial Thromboplastin Ratio 1.9
[2020-06-15 22:35] LABS: Partial Thromboplastin Time 53.1 Seconds (21.0-31.0)
--- NOTE | 2020-06-15 22:36 | Hospitalist Progress Note ---
Date of Service June 15, 2020 Assessment & Plan (1) Congestive heart failure: Acute exacerbation of diastolic heart failure. Likely due to change in home Bumex. - Monitor daily body weights, I&O's. - Continue Spironolactone 50 mg daily. - Continue beta pamela, nitrate, and other usual cardiac medications. - Improving today. Less shortness of breath and edema. -concern over creatinine rising, will hold diuretics today. -Patient already received AM dose of diuretic. will monitor. -Appreciate input from Cardio (2) Elevated troponin: Multivessel CAD s/p CABG x 3 Vessels 1999, s/p Intracoronary Stents (including LMCA stent). Troponin was 3.0 on admission. - Unclear whether this is ACS vs. demand ischemia. Troponin quite high and EKG clearly shows new ST depressions and TWI in lateral leads compared to the prior I see from 2019. - Continue ASA, Plavix, Coreg, & Imdur - Cardiology consulted (3) COVID-19: Some shortness of breath, but also explained by cardiac issues. CT chest with multifocal ground-glass and small nodular irregular opacities within the lungs suggestive of an infectious process. - Get repeat CT in 3 months. - Received her 1st COVID vaccine on 06/12/2020. - Given she is comfortable on room air, will defer steroids or remdesivir at this time. (4) Hypertension: BP up to 170/70 today. - Continue Coreg, hydralazine, Imdur, spironolactone - Continue diuresis (5) Type 2 diabetes mellitus with kidney complication, with long-term current use of insulin: A1c was 7.5%. - Continue long acting insulin - Presently on glargine 30 units HS. - Sliding scale insulin - Glycemic pharmacy consult placed - Will watch sugars. Did drop slightly overnight. (6) DVT prophylaxis: Presently on heparin 7,500 units SQ Q12h -> May switch to heparin gtt if cardiology feels appropriate. Admission and Anticipated Discharge Date Admission Date: June 13, 2020 Subjective 79 yo female reports feeling well. She has no new complaints. She reports she is breathing well. Review of Systems Review of Systems: All systems reviewed & are unremarkable except as noted in HPI & below Physical Exam Physical Exam: Constitutional: WD/WN, vitals as above Eyes: EOM intact bilaterally; no conjunctival abnormality ENMT: external ear and nose normal, oropharynx normal Neck: trachea midline, no thyromegaly normal visual inspection Respiratory: normal respiratory effort, lungs clear to auscultation no respiratory distress Cardiovascular: Rate/Rhythm: regular rate and regular rhythm Heart Sounds: normal S1 and normal S2 Vessels: no JVD Extremities: + edema (Trace on both legs.) Gastrointestinal (Abdomen): Inspection/Auscultation: abdomen normal to inspection; abdomen not distended Musculoskeletal: no cyanosis or clubbing, extremities motor strength 5/5 Skin: no rashes, warm and dry Neurologic: moves all extremities and awake Psychiatric: Orientation: alert, oriented to person and cooperative Results & Data Results & Data ([facility]) Vital Signs (Past 12 Hours) Vital Signs Temp Pulse Resp BP Pulse Ox 06/15/20 20:15 36.6 C 71 20 156/68 H 97 06/15/20 15:22 36.6 C 82 20 148/79 H 96 06/15/20 14:04 139/79 06/15/20 10:55 36.8 C 80 20 140/72 95 PG Care Time/CCT Total # of Minutes Spent Total Time Spent with Patient: Total time spent is greater than 50% in coordination of care (as documented) at patient's floor/unit and/or counseling patient: Coding Level of Care Code 57665 Subseq Hosp Care Lvl 3 Diagnoses Congestive heart failure I50.9 Heart failure chronicity: acute Heart failure type: unspecified Elevated troponin R77.8 COVID-19 U07.1 Hypertension I10 Type 2 diabetes mellitus with kidney complication, with long-term current use of insulin E11.29; Z79.4 DVT prophylaxis Z29.9 Time Spent (min) 35 (1) Congestive heart failure Heart failure chronicity: acute Heart failure type: unspecified Qualified Code(s): I50.9 - Heart failure, unspecified
[2020-06-16] MEDS: HEPARIN SODIUM/DEXTROSE 25,000 UNITS/500 ML BAG IV SCH (00:04)
[2020-06-16] MEDS: INSULIN ASPART 100 UNITS/ML 3 ML PEN SC SCH ×6 (00:15→21:19)
[2020-06-16] MEDS: traMADol HCL 50 MG TABLET PO PRN ×2 (02:10→22:40)
[2020-06-16 07:15] LABS: Basophils # (auto) 0.04 K/uL (0-0.2); Basophils % (auto) 0.4 %; Eosinophils # (auto) 0.28 K/uL (0-0.5); Eosinophils % (auto) 2.9 %; Hematocrit (blood only) 32.8 % (37-47); Hemoglobin 10.5 g/dL (12.0-16.0); Immature Granulocytes # (auto) 0.04 K/uL (0.00-0.02); Immature Granulocytes % (auto) 0.4 %; Lymphocytes # (auto) 1.53 K/uL (1.2-3.4); Lymphocytes % (auto) 15.8 %; Mean Corpuscular Hemoglobin 30.4 pg (25-34); Mean Corpuscular Volume 95.1 fL (80-100); Mean Platelet Volume 11.9 fL (7.4-10.4); Monocytes # (auto) 1.16 K/uL (0.11-0.59); Neutrophils # (auto) 6.64 K/uL (1.4-6.5); Neutrophils % (auto) 68.5 %; Platelet Count 177 K/uL (130-400); RDW Coefficient of Variation 14.8 % (11.5-14.5); RDW Standard Deviation 51.2 fL (36.4-46.3); Red Blood Count 3.45 M/uL (4.2-5.4); White Blood Count 9.69 K/uL (4.8-10.8)
[2020-06-16] MEDS: METOCLOPRAMIDE HCL 5 MG TABLET PO SCH ×4 (07:26→21:07)
[2020-06-16 07:43] LABS: BUN Creatinine Ratio 30.8 (10-20); Calcium 9.5 mg/dl (8.5-10.1); Creatinine Clr Calc Pharmacy 23.5 ml/min; Est GFR (Non-African American) 20.7; Potassium 4.3 mmol/L (3.5-5.1)
[2020-06-16 07:49] LABS: Partial Thromboplastin Ratio 2.4
[2020-06-16 07:53] LABS: Partial Thromboplastin Time 68.3 Seconds (21.0-31.0)
[2020-06-16] MEDS: hydrALAZINE TAB 50 MG TAB PO SCH ×3 (08:16→21:05)
[2020-06-16] MEDS: ATORVASTATIN 40 MG TAB PO SCH (08:17)
[2020-06-16] MEDS: CLOPIDOGREL BISULFATE 75 MG TAB PO SCH (08:17)
[2020-06-16] MEDS: GABAPENTIN 100 MG CAP PO SCH ×3 (08:17→21:06)
[2020-06-16] MEDS: ASPIRIN 81 MG ECTAB PO SCH (08:17)
[2020-06-16] MEDS: PANTOprazole 40 MG TAB PO SCH (08:17)
[2020-06-16] MEDS: carvediloL 25 MG TAB PO SCH ×2 (08:18→21:06)
[2020-06-16] MEDS: ISOSORBIDE MONO EXTENDED REL 60 MG TABCR PO SCH ×2 (08:18→21:06)
[2020-06-16] MEDS: SPIRONOLACTONE 25 MG TAB PO SCH (08:18)
[2020-06-16] MEDS: amLODIPine BESYLATE 5 MG TAB PO SCH (08:18)
[2020-06-16] MEDS: CALCIUM 600MG + VIT D 400 IU TAB PO SCH (08:18)
[2020-06-16] MEDS: POTASSIUM CHLORIDE 10 MEQ TABCR PO SCH ×2 (08:19→21:06)
--- NOTE | 2020-06-16 11:01 | XRay Report ---
XR chest 1V portable CLINICAL HISTORY: bilateral infiltrates COMPARISON STUDY: Chest radiograph and chest CT June 13, 2020. FINDINGS: Incidental note is made of median sternotomy wires and anterior cervical spine fusion. Lung volumes are normal. Bilateral airspace opacities have improved since prior chest radiograph and ches t CT. There is a trace left pleural effusion. No pneumothorax is present. Cardiomegaly is again noted . IMPRESSION: Interval improvement in bilateral airspace opacities since prior exam. ACT 112: Negative or not required by law. Electronically signed by: Zaheer Marquez M.D. 06/16/2020 10:59 AM
[2020-06-16] MEDS: MULTIVITAMIN TAB PO SCH (12:13)
[2020-06-16] MEDS: FERROUS SULFATE 325 MG TAB PO SCH (12:13)
--- NOTE | 2020-06-16 12:59 | Cardiology Progress Note ---
Date of Service June 16, 2020 Assessment & Plan (1) Congestive heart failure: Her breathing difficulty is likely related both to pulmonary vascular congestion and a viral pneumonia. She appears have affected a good diuresis. Renal function BUN are improving. It may be worth holding her diuretics for another day. (2) Elevated troponin: Her biomarkers are significantly elevated. They have trended downward. No current symptoms of an acute coronary syndrome. She has been on heparin for nearly 48 hours and I will discontinue this this evening. Based on her renal dysfunction and her desire to avoid additional interventions I think will defer angiography at this time. (3) CAD (coronary artery disease): She had surgical revascularization in 1999. She had her last percutaneous intervention in 2010. This involved stenting of the distal left main and circumflex artery. She is known to have occlusion of a radial graft and 2 vein grafts. Reportedly the ARGUETA to LAD is patent. She has been maintained on dual anti-platelet therapy, beta blockade and until recently high-dose atorvastatin. (4) Hyperlipidemia: Atorvastatin restarted (5) Hypertension: Amlodipine started in addition to other medications. Blood pressure improved Admission and Anticipated Discharge Date Admission Date: June 13, 2020 Subjective This 71 the patient claimed he feeling well. She stated that her breathing was back to baseline. He has been minimally ambulatory around her room but did not report symptoms of dizziness. She did have 1 episode of very fleeting chest pain that she described as sharp in nature. No other symptoms of chest discomfort. No breathing difficulty last night. No orthopnea. Review of Systems Review of Systems: Per HPI Physical Exam Physical Exam: She is alert and oriented x3. Mood affect appear normal. She answered all questions appropriately. HEENT: Sclerae are anicteric. Pupils are equal and reactive to light and accommodation. Extraocular movements were intact. Neuro: Cranial nerves intact Neck: Examination of the submandibular region did not reveal any significant lymphadenopathy. Carotids are palpable bilaterally and free of bruits on auscultation. Lungs: Normal respiratory effort. No wheezing. No rales. Cardiac: The rhythm was regular with occasional ectopy. S1 and S2 were normal. Holosystolic murmur The PMI was not markedly displaced on palpation. Extremities: Patient has bilateral radial pulses that are equal in intensity. There is no evidence cyanosis or clubbing. There was no evidence of significant peripheral edema bilaterally. Skin: There are no rashes noted on examination today. Results & Data ([facility]) Vital Signs (Past 12 Hours) Vital Signs Temp Pulse Pulse Resp BP BP Pulse Ox 06/16/20 11:15 36.9 C 68 20 136/58 L 93 06/16/20 07:23 36.7 C 81 20 174/98 H 96 06/16/20 04:00 78 24 179/80 H 96 06/16/20 01:58 71 Laboratory Results Abnormal Lab Results 06/15/20 06/15/20 06/15/20 13:21 13:23 15:01 WBC RBC Hgb Hct MCV MCH MCHC RDW Std Deviation RDW Coeff of Duy Plt Count MPV Immature Gran % (Auto) Neut % (Auto) Lymph % (Auto) [place] % (Auto) Eos % (Auto) Baso % (Auto) Neut # (Auto) Lymph # (Auto) [place] # (Auto) Eos # (Auto) Baso # (Auto) Immature Gran # (Auto) APTT 41.0 H PTT Ratio 1.5 Sodium Potassium Chloride Carbon Dioxide Anion Gap BUN Creatinine Est Cr Clr Drug Dosing Est GFR ( Amer) Est GFR (Non-Af Amer) BUN/Creatinine Ratio Glucose POC Glucose 397 H* 434 H* Calcium Procalcitonin 06/15/20 06/15/20 06/15/20 18:06 20:26 21:21 WBC RBC Hgb Hct MCV MCH MCHC RDW Std Deviation RDW Coeff of Duy Plt Count MPV Immature Gran % (Auto) Neut % (Auto) Lymph % (Auto) [place] % (Auto) Eos % (Auto) Baso % (Auto) Neut # (Auto) Lymph # (Auto) [place] # (Auto) Eos # (Auto) Baso # (Auto) Immature Gran # (Auto) APTT 53.1 H* PTT Ratio 1.9 Sodium Potassium Chloride Carbon Dioxide Anion Gap BUN Creatinine Est Cr Clr Drug Dosing Est GFR ( Amer) Est GFR (Non-Af Amer) BUN/Creatinine Ratio Glucose POC Glucose 128 H 198 H Calcium Procalcitonin 06/16/20 06/16/20 06/16/20 00:12 04:38 05:54 WBC 9.69 RBC 3.45 L Hgb 10.5 L Hct 32.8 L MCV 95.1 MCH 30.4 MCHC 32.0 RDW Std Deviation 51.2 H RDW Coeff of Duy 14.8 H Plt Count 177 MPV 11.9 H Immature Gran % (Auto) 0.4 Neut % (Auto) 68.5 Lymph % (Auto) 15.8 [place] % (Auto) 12.0 Eos % (Auto) 2.9 Baso % (Auto) 0.4 Neut # (Auto) 6.64 H Lymph # (Auto) 1.53 [place] # (Auto) 1.16 H Eos # (Auto) 0.28 Baso # (Auto) 0.04 Immature Gran # (Auto) 0.04 H APTT PTT Ratio Sodium Potassium Chloride Carbon Dioxide Anion Gap BUN Creatinine Est Cr Clr Drug Dosing Est GFR ( Amer) Est GFR (Non-Af Amer) BUN/Creatinine Ratio Glucose POC Glucose 144 H 71 Calcium Procalcitonin 06/16/20 06/16/20 06/16/20 05:54 05:54 05:54 WBC RBC Hgb Hct MCV MCH MCHC RDW Std Deviation RDW Coeff of Duy Plt Count MPV Immature Gran % (Auto) Neut % (Auto) Lymph % (Auto) [place] % (Auto) Eos % (Auto) Baso % (Auto) Neut # (Auto) Lymph # (Auto) [place] # (Auto) Eos # (Auto) Baso # (Auto) Immature Gran # (Auto) APTT 68.3 H* PTT Ratio 2.4 Sodium 137 Potassium 4.3 Chloride 102 Carbon Dioxide 29 Anion Gap 6.0 BUN 68 H Creatinine 2.21 H D Est Cr Clr Drug Dosing 23.5 Est GFR ( Amer) 24.0 Est GFR (Non-Af Amer) 20.7 BUN/Creatinine Ratio 30.8 H Glucose 77 POC Glucose Calcium 9.5 Procalcitonin 0.19 06/16/20 06/16/20 06/16/20 08:07 11:24 11:26 WBC RBC Hgb Hct MCV MCH MCHC RDW Std Deviation RDW Coeff of Duy Plt Count MPV Immature Gran % (Auto) Neut % (Auto) Lymph % (Auto) [place] % (Auto) Eos % (Auto) Baso % (Auto) Neut # (Auto) Lymph # (Auto) [place] # (Auto) Eos # (Auto) Baso # (Auto) Immature Gran # (Auto) APTT PTT Ratio Sodium Potassium Chloride Carbon Dioxide Anion Gap BUN Creatinine Est Cr Clr Drug Dosing Est GFR ( Amer) Est GFR (Non-Af Amer) BUN/Creatinine Ratio Glucose POC Glucose 97 333 H* 329 H* Calcium Procalcitonin PG Care Time/CCT Total # of Minutes Spent Total Time Spent with Patient: Total time spent is greater than 50% in coordination of care (as documented) at patient's floor/unit and/or counseling patient: Coding Level of Care Code 09927 Subseq Hosp Care Lvl 2 Diagnoses Congestive heart failure I50.9 Heart failure chronicity: acute Heart failure type: unspecified Elevated troponin R77.8 CAD (coronary artery disease) I25.10 Hyperlipidemia E78.5 Hypertension I10 (1) Congestive heart failure Heart failure chronicity: acute Heart failure type: unspecified Qualified Code(s): I50.9 - Heart failure, unspecified
[2020-06-16] MEDS: BUMETANIDE 1 MG TAB PO SCH (14:25)
[2020-06-16 15:44] LABS: Partial Thromboplastin Time 56.2 Seconds (21.0-31.0)
--- NOTE | 2020-06-16 18:53 | Hospitalist Progress Note ---
Date of Service June 16, 2020 Assessment & Plan (1) Congestive heart failure: Acute exacerbation of diastolic heart failure. Likely due to change in home Bumex. - Monitor daily body weights, I&O's. - Continue Spironolactone 50 mg daily. - Continue beta pamela, nitrate, and other usual cardiac medications. - Improving today. Less shortness of breath and edema. -creatinine improved after holding diuretics. -will resume home dose, may recommend sliding scale at home for diuretics. -Appreciate input from Cardio -If patient continues to feel well tomorrow, patient will be discharged/ (2) Elevated troponin: Type 2 Myocardial Infarction Multivessel CAD s/p CABG x 3 Vessels 1999, s/p Intracoronary Stents (including LMCA stent). Troponin was 3.0 on admission. - Unclear whether this is ACS vs. demand ischemia. Troponin quite high and EKG clearly shows new ST depressions and TWI in lateral leads compared to the prior I see from 2019. - Continue ASA, Plavix, Coreg, & Imdur - Cardiology consulted -Patient on heparin iV drio for 48 hours. -Cardio recommends conservative management at this time. (3) COVID-19: Some shortness of breath, but also explained by cardiac issues. CT chest with multifocal ground-glass and small nodular irregular opacities within the lungs suggestive of an infectious process. - Get repeat CT in 3 months. - Received her 1st COVID vaccine on 06/12/2020. - Given she is comfortable on room air, will defer steroids or remdesivir at this time. (4) Hypertension: BP up to 170/70 today. - Continue Coreg, hydralazine, Imdur, spironolactone - Continue diuresis (5) Type 2 diabetes mellitus with kidney complication, with long-term current use of insulin: A1c was 7.5%. - Continue long acting insulin - Presently on glargine 30 units HS. - Sliding scale insulin - Glycemic pharmacy consult placed - Will watch sugars. Did drop slightly overnight. (6) DVT prophylaxis: Presently on heparin 7,500 units SQ Q12h -> May switch to heparin gtt if cardiology feels appropriate. Admission and Anticipated Discharge Date Admission Date: June 13, 2020 Subjective Patient reports feeling well. She ambulated in the room with no difficulty. Updated her daughter on the phone Review of Systems Review of Systems: All systems reviewed & are unremarkable except as noted in HPI & below Physical Exam Physical Exam: Constitutional: WD/WN, vitals as above Eyes: EOM intact bilaterally; no conjunctival abnormality ENMT: external ear and nose normal, oropharynx normal Neck: trachea midline, no thyromegaly normal visual inspection Respiratory: normal respiratory effort, lungs clear to auscultation no respiratory distress Cardiovascular: Rate/Rhythm: regular rate and regular rhythm Heart Sounds: normal S1 and normal S2 Vessels: no JVD Extremities: + edema (Trace on both legs.) Gastrointestinal (Abdomen): Inspection/Auscultation: abdomen normal to inspection; abdomen not distended Musculoskeletal: no cyanosis or clubbing, extremities motor strength 5/5 Skin: no rashes, warm and dry Neurologic: moves all extremities and awake Psychiatric: Orientation: alert, oriented to person and cooperative Results & Data Results & Data ([facility]) Vital Signs (Past 12 Hours) Vital Signs Temp Pulse Resp BP BP Pulse Ox 06/16/20 15:27 36.7 C 71 18 148/70 H 97 06/16/20 11:15 36.9 C 68 20 136/58 L 93 06/16/20 07:23 36.7 C 81 20 174/98 H 96 PG Care Time/CCT Total # of Minutes Spent Total Time Spent with Patient: Total time spent is greater than 50% in coordination of care (as documented) at patient's floor/unit and/or counseling patient: Coding Level of Care Code 61769 Subseq Hosp Care Lvl 3 Diagnoses Congestive heart failure I50.9 Heart failure chronicity: acute Heart failure type: unspecified Elevated troponin R77.8 COVID-19 U07.1 Hypertension I10 Type 2 diabetes mellitus with kidney complication, with long-term current use of insulin E11.29; Z79.4 DVT prophylaxis Z29.9 Time Spent (min) 35 (1) Congestive heart failure Heart failure chronicity: acute Heart failure type: unspecified Qualified Code(s): I50.9 - Heart failure, unspecified
[2020-06-16] MEDS: DOCUSATE SODIUM 100 MG CAP PO SCH (21:06)
[2020-06-16] MEDS: PSYLLIUM 58.6% POWDER PACKET PO SCH (21:06)
[2020-06-16] MEDS: INSULIN GLARGINE SOLOSTAR 100 UNITS/ML 3 ML PEN SQ SCH (21:07)
[2020-06-17] MEDS: HEPARIN SODIUM/DEXTROSE 25,000 UNITS/500 ML BAG IV SCH (00:57)
[2020-06-17] MEDS: METOCLOPRAMIDE HCL 5 MG TABLET PO SCH ×2 (07:25→11:33)
[2020-06-17 07:51] LABS: Basophils # (auto) 0.05 K/uL (0-0.2); Basophils % (auto) 0.8 %; Eosinophils # (auto) 0.21 K/uL (0-0.5); Eosinophils % (auto) 3.3 %; Hematocrit (blood only) 33.2 % (37-47); Hemoglobin 10.7 g/dL (12.0-16.0); Immature Granulocytes # (auto) 0.05 K/uL (0.00-0.02); Immature Granulocytes % (auto) 0.8 %; Lymphocytes # (auto) 2.08 K/uL (1.2-3.4); Mean Corpuscular Hemoglobin 30.5 pg (25-34); Mean Corpuscular Hgb Conc 32.2 g/dL (32-36); Mean Corpuscular Volume 94.6 fL (80-100); Mean Platelet Volume 11.7 fL (7.4-10.4); Monocytes # (auto) 0.62 K/uL (0.11-0.59); Monocytes % (auto) 9.8 %; Neutrophils # (auto) 3.29 K/uL (1.4-6.5); Neutrophils % (auto) 52.3 %; Platelet Count 182 K/uL (130-400); RDW Coefficient of Variation 14.6 % (11.5-14.5); RDW Standard Deviation 50.1 fL (36.4-46.3); Red Blood Count 3.51 M/uL (4.2-5.4)
[2020-06-17] MEDS: ASPIRIN 81 MG ECTAB PO SCH (08:08)
[2020-06-17] MEDS: POTASSIUM CHLORIDE 10 MEQ TABCR PO SCH (08:08)
[2020-06-17] MEDS: GABAPENTIN 100 MG CAP PO SCH (08:08)
[2020-06-17] MEDS: CLOPIDOGREL BISULFATE 75 MG TAB PO SCH (08:08)
[2020-06-17] MEDS: carvediloL 25 MG TAB PO SCH (08:08)
[2020-06-17] MEDS: ISOSORBIDE MONO EXTENDED REL 60 MG TABCR PO SCH (08:08)
[2020-06-17] MEDS: PANTOprazole 40 MG TAB PO SCH (08:08)
[2020-06-17] MEDS: BUMETANIDE 1 MG TAB PO SCH (08:08)
[2020-06-17] MEDS: SPIRONOLACTONE 25 MG TAB PO SCH (08:09)
[2020-06-17] MEDS: amLODIPine BESYLATE 5 MG TAB PO SCH (08:09)
[2020-06-17] MEDS: ATORVASTATIN 40 MG TAB PO SCH (08:09)
[2020-06-17] MEDS: hydrALAZINE TAB 50 MG TAB PO SCH (08:09)
[2020-06-17] MEDS: INSULIN ASPART 100 UNITS/ML 3 ML PEN SC SCH ×2 (08:12→12:18)
[2020-06-17 08:25] LABS: Calcium 9.6 mg/dl (8.5-10.1); Creatinine Clr Calc Pharmacy 20.6 ml/min; Est GFR (African American) 20.3; Est GFR (Non-African American) 17.6
[2020-06-17 11:28] VITALS: TEMP 98.1; O2SAT 96
[2020-06-17] MEDS: FERROUS SULFATE 325 MG TAB PO SCH (11:32)
[2020-06-17] MEDS: MULTIVITAMIN TAB PO SCH (11:33)
[2020-06-17] MEDS ORDERED: INSULIN HUMAN REGULAR PER UNIT 5 UNITS in SYRINGE 4.95 ML IV ONE (11:45)
[2020-06-17 13:28] VITALS: BP 157/72; PULSE 72
--- NOTE | 2020-06-17 15:09 | Pharmacy Report ---
Pharmacy Glycemic Short Note 2 - Date of Service June 17, 2020 - Glycemic Short BSG Results (Last 24 hours): 06/16/20 06/16/20 06/17/20 16:55 20:57 01:53 Glucose POC Glucose 223 H 172 H 58 L* 06/17/20 06/17/20 06/17/20 02:14 07:29 07:37 Glucose 143 H POC Glucose 72 153 H 06/17/20 11:25 Glucose POC Glucose 371 H* OUTPATIENT ANTIDIABETIC REGIMEN: * Basaglar 30 units HS + Novolog 13 units TIDM + SSI * A1c 7.6% 06/14 ASSESSMENT: 06/17 * Patient received 137 units of insulin yesterday, 30 of basal, 107 of prandial/correctional * Fasting blood sugars remain within goal, continue 30 units of basal, patient did trend down overnight last night after discussion with nursing will work to transition to AM administration. If discharged prior to this change patient can discuss with outpatient provider. * Lunch BSGs remain elevated, continued same carb ratio this morning as heparin drip had been discontinued and a ratio of 1:3.5 had been used the previous AM. Despite this, lunch BSG still within the the 300 range. Would plan to continue to tighten carb ratio. 06/15 * Patient received 67 units of insulin yesterday, 30 of basal, 37 of prandial/c orrectional * Prandial BSGs remained elevated yesterday throughout the day and lunch BSG elevated despite tightened carb ratio this morning, will tighten correction factor and carb ratio further today. * Fasting BSG 131 mg/dL is within goal range, will continue with current basal dosing, however, may need increased if fasting trends upward. * Patient is on a heparin infusion that is mixed in dextrose. 06/14 * HH admitted with SOB, CHF and was also COVID+, although without typical symptoms other than SOB * BSG trended down overnight with a fasting of 103 mg/dL- will continue current 30 units of lantus in the evening (this is home dose) * Lunch BSG slightly elevated, however AM insulin was given 0900, therefore will continue current novolog parameters, dosed at weight based stress of 3. Will continue to monitor for changes PLAN FOR INPATIENT GLYCEMIC CONTROL: * Hold outpatient oral diabetes medications * Basal insulin * Lantus 30 units @ 1800 today * Bolus insulin * NovoLog per scale ACHS or Q6hrs while NPO * Goal Range: Low 110 mg/dL - High 140 mg/dL * Correction Factor: 12 mg/dL/unit * Nutritional / Prandial insulin per carb ratio of 1 unit per 3 grams CHO consumed * RECOMMENDATIONS FOR DISCHARGE A1c 7.8% may be an acceptable A1c given patients age. Recommend close follow up with patient's outpatient provider as patient has been experiencing lunch hyperglycemia throughout her stay, patient may consider increasing novolog administration in the morning depending on trend.
[2020-06-17] MEDS ORDERED: INSULIN GLARGINE SOLOSTAR 100 UNITS/ML 3 ML PEN SQ SCH (18:00)
--- NOTE | 2020-06-19 08:48 | Discharge Summary ---
Date of Service June 17, 2020 Admission HPI Per Admitting Provider Mrs Sosa is a 79 year old female with a history of Multivessel CAD s/p CABG x 3 Vessels 1999, s/p Intracoronary Stents (including LMCA stent), Hypertension, Insulin Requiring Type 2 Diabetes Mellitus, Dyslipidemia, Carotid Stenoses s/p Bilateral CEA's, Cerebrovascular Disease, PAD s/p Peripheral Interventions, Renal Artery Stenosis s/p Left Renal Artery Stent, Chronic Diastolic CHF, Asthma, Anemia, CKD, Secondary Hyperparathyroidism, Obesity, and Diabetic Neuropathy who was referred to [facility] ER from her PCP's office earlier after she presented with SOB/EASLEY over the preceding 12 hours followed by an episode of chest discomfort and changes on her EKG (ST and T depressions in leads II, aVR, and V2 through V6). She states that she received her first COVID vaccine yesterday around 1:10 pm at [facility]. She says she started to not feel well around 9 or 10 pm. She spilled some water on the floor, tried to wipe it up and got short of breath. SOB persisted. She subsequently went to bed and hard a hard time lying flat because it made her shortness of breath worse. She denied any chest pain last evening or overnight. Although she admits to having some central chest pressure this morning lasting approximately 10 minutes, it did not radiate, nor did she have any associated diaphoresis or worsening of her breathing status with the chest discomfort. "It may have been a little bit like my angina". She had some nausea but did not vomit this morning. She denies diarrhea or focal abdominal pain. She denies fever or new cough. She denies sore throat, loss of taste or smell, or any recent COVID exposures. Patient states that she has gained some weight in recent days. She states that Dr. Andrade reduced her Bumex about one month ago. She tried to use her hand-held inhaler but it is out of date so she used her nebulizer. She does't think this helped much. HISTORICAL BACKGROUND: Long-standing history of CAD s/p CABG x 3 Vessels in 1999 at [facility] (ARGUETA to LAD, SVG to RCA, Radial Artery Graft to LCx). Cardiac catheterization 2001 at [facility] with occlusion of the radial and venous grafts. The left internal mammary artery graft was patent. Non-ST elevation myocardial infarction July 02, 2010. Cardiac catheterization at [facility] with severe distal left main and ostial left circumflex marginal stenoses. Successful intervention to distal left main and left circumflex with deployment of 3.0 x 18 mm drug eluting stent. Post dilated with 3.25 mm noncompliant balloon. Total mid LAD occlusion. Mild to moderate atherosclerotic disease of right coronary artery. Patent ARGUETA graft to the mid LAD. Echocardiography with mild inferior wall hypokinesis. Trace mitral and tricuspid regurgitation. LV ejection fraction 50%-60%. History of type 2 diabetes mellitus, hypertension, and dyslipidemia. Peripheral vascular disease s/p bilateral iliac artery stents June 2010 at [facility]. Status post left SFA balloon angioplasty. Complicated by pseudoaneurysm formation and left common femoral artery. Lower extremity arterial duplex scan 12/01/2014 with 50%-74% stenosis and right proximal SFA. 75%-99% stenosis right mid SFA. 100% proximal left SFA occlusion. Reconstitution of the mid and distal SFA. DOMINIQUE on right 0.94. On left 0.55. Cerebrovascular disease s/p bilateral carotid endarterectomies. Family history of premature coronary artery disease in her brothers. She does not smoke cigarettes. 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 Ziegler. Complicated by a left femoral artery pseudoaneurysm requiring surgical repair. Status post left SFA OCCUPATIONAL THERAPY TECHNICIAN 07/13/2015. Performed via right femoral artery access. Admission to [facility] February 15, 2016-February 19, 2016 for cellulitis of face and parotitis. During the admission she was seen in Cardiology consultation. She had complained of increased dyspnea and fatigue prior to admission. The symptoms subsequently resolved. Troponin I were negative for myocardial infarction. The electrocardiograms revealed no ischemic changes. Echocardiogram on February 16, 2016 with normal LV size and systolic function. No regional wall motion abnormalities. Mild concentric LVH. LV ejection fraction 60%-65%. Type 2 diastolic dysfunction. Mild mitral regurgitation. Mild left atrial dilatation. No significant change from prior study of May 2014. Lexiscan pharmacologic stress test performed during admission revealed evidence suggesting ischemia in the proximal and distal anterior wall, mid to distal anterolateral wall, apex, proximal to distal inferior and inferoseptal iqbal. These findings were compared to her known angiographic findings on cardiac catheterization in 2010. It was felt that her multivessel coronary artery disease could account for all of the findings on the pharmacologic stress test. She was not experiencing any anginal symptoms by the time of discharge. Her cardiac enzymes were negative for myocardial injury. There was no evidence of an acute coronary syndrome. It was felt best by me that continued maximal medical therapy be pursued. Admission to admission to [facility] February 17, 2017-February 20, 2017 for pneumonia, asthma exacerbation, hypertension, and mildly elevated troponin I. She presented with dyspnea and bronchospasm. Blood pressure on admission as high as 202/114 millimeters Hg. Troponin I 0.872. Electrocardiogram with anterolateral ST T-wave changes consistent with ischemia. No definite anginal type symptoms. Sensation of chest tightness with bronchospasm. Echocardiogram with normal left ventricular systolic function, moderate LVH, class 2 LV diastolic dysfunction, [id number] mitral regurgitation, moderate tricuspid regurgitation, normal estimated central venous pressure, mildly elevated estimated right ventricular systolic pressure 30-40 millimeters of mercury. Treated for pneumonia and bronchospasm. For blood pressure control hydralazine increased to 50 milligrams t.i.d., carvedilol to 50 milligrams b.i.d., and amlodipine 2.5 milligrams daily started. Carotid ultrasound February 27, 2017 with greater than 70 percent right internal carotid artery stenosis. She was referred to vascular surgery. She desired to be seen by vascular surgery at the [facility]. She underwent a CT angiogram of her carotid arteries on April 02, 2017. 75 percent bilateral subclavian artery stenoses. Segmental occlusion in the proximal left vertebral artery. Greater than 75 percent stenosis in the right internal carotid artery. Less than 50% left internal carotid artery proximal stenosis. Greater than 50% left internal carotid artery stenosis at the level of the cavernous segment. It was recommended by vascular surgery that she co ntinued to be monitored. Was planned for her to undergo a repeat carotid ultrasound in 6 months. Admission to [facility] October 22, 2017-November 04, 2017 for acute respiratory failure secondary to combination of COPD exacerbation and left ventricular diastolic dysfunction. She also had hypertensive urgency, demand myocardial ischemia, acute on chronic kidney injury, and fluid overload. An echocardiogram performed October 22, 2017 revealed LV ejection fraction greater than 70 percent, grade 2 LV diastolic dysfunction, mild mitral regurgitation, mild tricuspid regurgitation, and estimated right ventricular systolic pressure 40-50 millimeters of mercury. Labs on November 04, 2017 revealed hemoglobin of 10.1, platelet count 148, WBC 16.5, BUN 63, creatinine 1.91, potassium 4.3. For her COPD exacerbation she was treated with steroids and antibiotics. She also received nebulizer treatments. For her heart failure she received intravenous diuretic therapy. Her spironolactone dose was increased. During admission her amlodipine was discontinued and she was placed on diltiazem. This was in light of her LV diastolic dysfunction. During the admission a CT scan with angiography was performed of her abdomen. This revealed a severe stenosis at origin of left renal artery. Calcified atherosclerotic plaque. Moderate to severe stenosis at origin of right renal artery. Extensive atherosclerotic plaque of the abdominal branch vessels. Moderate stenosis at the origin of the celiac axis and superior mesenteric artery. Patent inferior mesenteric artery. She was seen by vascular surgery who felt that intervention to renal artery stenoses would not be beneficial. Her case was discussed with vascular surgery at [facility]. It was planned for her to go there a few weeks following discharge for a second opinion regarding her renal artery stenoses. This was recommended by Nephrology consultation. Following discharge she was admitted to [facility]. Prior to her admission she had undergone a gastric emptying study on October 16, 2017. This had been performed for post prandial nausea. This revealed evidence of delayed gastric emptying of solids. She was subsequently referred to [facility] where she underwent stenting of her left renal artery on January 29, 2018. This was performed via a right femoral arterial access. Complicated by a retroperitoneal bleed resulting in hypotension and severe anemia. She was hospitalized for 5 days. Admission in April 2018 to [facility] for hypoglycemia which resulted in episode of loss of consciousness. Admission November 28, 2018 after episode of syncope. She has been sitting in her home. She got up to talk on the phone. Within several seconds of standing she felt lightheaded, diaphoretic, and had sensation of chest discomfort. She lost consciousness. She struck her head. She did not know how long she was unconscious. The episode was not witnessed. She did contact her son when she regained consciousness. She was brought by EMS to the emergency department. When she had awakened the chest discomfort had resolved. In the ambulance she stated she had an episode of chest discomfort relieved within a few minutes with sublingual nitroglycerin. She described the chest discomfort as a chest pressure. She was discharged November 30. Cardiac enzymes during the admission were normal. An echocardiogram revealed normal LV systolic function. Grade 1 LV diastolic dysfunction. Moderate aortic valve sclerosis. Trace mitral regurgitation. After discharge she had a cardiac event monitor from December 05- January 03, 2019. It revealed sinus rhythm, borderline first-degree AV block, IVCD, occasional PAC, occasional PVC. No inappropriate pauses. No significant AV block. No s ustained or nonsustained arrhythmias. During the November admission CT scan of her head was unremarkable. No evidence of an acute process. Principal Diagnosis acute diastolic heart failure Discharge Exam Constitutional: WD/WN, vitals as above Eyes: EOM intact bilaterally; no conjunctival abnormality ENMT: external ear and nose normal, oropharynx normal Neck: trachea midline, no thyromegaly normal visual inspection Respiratory: normal respiratory effort, lungs clear to auscultation no r espiratory distress Cardiovascular: Rate/Rhythm: regular rate and regular rhythm Heart Sounds: normal S1 and normal S2 Vessels: no JVD Extremities: + edema (Trace on both legs.) Gastrointestinal (Abdomen): Inspection/Auscultation: abdomen normal to inspection; abdomen not distended Musculoskeletal: no cyanosis or clubbing, extremities motor strength 5/5 Skin: no rashes, warm and dry Neurologic: moves all extremities and awake Psychiatric: Orientation: alert, oriented to person and cooperative Discharge Data Allergies Allergy/AdvReac Type Severity Reaction Status Date / Time Sulfa (Sulfonamide Allergy Intermediate RASH/PRURIT Verified 06/13/20 12:03 Antibiotics) IS sulfamethoxazole Allergy Unverified 06/13/20 12:03 [From Bactrim] trimethoprim [From Bactrim] Allergy Unverified 06/13/20 12:03 omeprazole AdvReac Intermediate interacts Verified 06/13/20 12:03 w/ clopidigrol chlorpropamide AdvReac Mild N/V Verified 06/13/20 12:03 ARI Inhibitors AdvReac Unknown AVOIDS Verified 06/13/20 12:03 SECONDARY TO "OTHER MEDICATIONS" PER PT Consultations 06/13/20 14:38 ED Decision to Admit Stat 06/14/20 13:21 Consult Cardiology Routine 06/17/20 11:48 [facility] CHF Program Referral Routine Ordered Studies 06/13/20 16:27 CT chest diagnostic wo con Stat Hospital Course (1) Congestive heart failure: Acute exacerbation of diastolic heart failure. Likely due to change in home Bumex. - Monitor daily body weights, I&O's. - Continue Spironolactone 50 mg daily. - Continue beta pamela, nitrate, and other usual cardiac medications. - Improving today. Less shortness of breath and edema. -creatinine improved after holding diuretics. -will resume home dose, may recommend sliding scale at home for diuretics. -Appreciate input from Cardio -will hold diuretics tomorrow. -Patient will get a dry weight tomorrow and use sliding scale for diuretic. -will f/u CHF clinic (2) Elevated troponin: Type 2 Myocardial Infarction Multivessel CAD s/p CABG x 3 Vessels 1999, s/p Intracoronary Stents (including LMCA stent). Troponin was 3.0 on admission. - Unclear whether this is ACS vs. demand ischemia. Troponin quite high and EKG clearly shows new ST depressions and TWI in lateral leads compared to the prior I see from 2019. - Continue ASA, Plavix, Coreg, & Imdur - Cardiology consulted -Patient on heparin iV drio for 48 hours. -stopped this AM -Cardio recommends conservative management at this time. (3) COVID-19: Some shortness of breath, but also explained by cardiac issues. CT chest with multifocal ground-glass and small nodular irregular opacities within the lungs suggestive of an infectious process. - Get repeat CT in 3 months. - Received her 1st COVID vaccine on 06/12/2020. - Given she is comfortable on room air, will defer steroids or remdesivir at this time. (4) Hypertension: BP up to 170/70 today. - Continue Coreg, hydralazine, Imdur, spironolactone - Continue diuresis (5) Type 2 diabetes mellitus with kidney complication, with long-term current use of insulin: A1c was 7.5%. - Continue long acting insulin - Presently on glargine 30 units HS. - Sliding scale insulin - Glycemic pharmacy consult placed - Will watch sugars. Did drop slightly overnight. (6) DVT prophylaxis: Presently on heparin 7,500 units SQ Q12h Total Time Total Time Spent Total Time Spent (In Minutes): 32 Discharge Plan Discharge Items Patient Disposition: Home - Self-Care Reason For Visit: CHF, +COVID Discharge Diagnosis: COVID +, chf Activity: Resume your previous activity Non-emergency contact: Primary Care Provider Call non-emergency contact if: you have any medication questions Follow-up/Referrals: Nicolette Marquez MD [Primary Care Provider] - Caridad Herrera PA-C [Physician Real Estate Professional] - 06/21/20 1:30 pm (THIS IS A VIRTUAL VISIT) Diet: Carb Consistent or DM2 and Low Sodium (2gm) Addtl Attending Provider Instructions: as stated below Addtl Machine Try Out Setter Provider Instructions: Recommend you weigh yourself in the morning. This will be your dry weight. You will hold your dose of bumex tomorrow and restart on Saturday. Get your next weight the following day (with the same circumstance: example: before eating and after going to the bathroom): If your weight on Saturday is 2 pounds over your dry weight, then take regular dose of bumex. If above 4 pounds, then take 2 mg of bumex. Keep a diary of your doses and weight. Call your Primary Care doctor if any of the following symptoms or problems start or get worse: * Shortness of breath or difficulty breathing * Wake up at night short of breath * Chest pain * Cough * Swelling of your hands, feet, or legs * More fatigued or tired with your normal activity * Palpitations - sudden fast heart beats WEIGHT * Weigh yourself every morning after using the bathroom. * Use the same scale. * Wear the same amount of clothing. * Write your weight down on a chart. * Call your Primary Care doctor if you gain more than 2-3 pounds in 1-2 days. MEDICATIONS * Use this discharge instruction sheet for medication instructions. * Take your medications at the time your doctor ordered. * Do not skip a dose of your medicines. * If you miss a dose of medicine, take it as soon as possible, but DO NOT DOUBLE A DOSE. * Read your medicine information when you get home. * Know all of the side effects of your medicine. If in doubt, ask your pharmacist * Call your Primary Care doctor's office if you have any side effects. * Be sure all of your doctors know what medicine and herbs you take (including cold, flu, and herbal medicine). Take the following with you to your follow-up doctor appointments: * Weight Chart * Medication List * List of questions Do not drink excessive alcohol, beer or wine. Pending Studies at Discharge: No Stand-Alone Forms: My [employer], Smoking Cessation Medications and DC Order Prescriptions: New atorvastatin 40 mg Tablet 40 mg PO QAM Qty: 30 RF: 0 amlodipine [Norvasc] 5 mg Tablet 5 mg PO QAM Qty: 30 RF: 0 Continued albuterol sulfate 2.5 mg /3 mL (0.083 %) solution for nebulization 2.5 mg INHALATION Q4H PRN (Reason: Shortness Of Breath) Qty: 75 RF: 3 hydralazine 100 mg tablet 100 mg PO TID Qty: 270 RF: 3 pantoprazole 40 mg tablet,delayed release (DR/EC) 40 mg PO QAM Qty: 90 RF: 3 (DME) pen needle, diabetic [BD Ultra-Fine Short Pen Needle] 31 gauge x 5/16" needle See Dose Instructions .ROUTE .MEDSUPPLY Qty: 400 RF: 1 tramadol 50 mg tablet See Rx Instructions .ROUTE .COMPLEX Qty: 120 RF: 3 metoclopramide HCl 5 mg tablet 5 mg PO .COMPLEX Qty: 360 RF: 3 insulin aspart U-100 [Novolog Flexpen U-100 Insulin] 100 unit/mL (3 mL) insulin pen See Rx Instructions SQ TID 90 Days Qty: 45 RF: 3 Basaglar KwikPen U-100 Insulin 100 unit/mL (3 mL) insulin pen 30 unit subcut HS 90 Days Qty: 30 RF: 1 clopidogrel 75 mg tablet 75 mg PO DAILY Qty: 90 RF: 3 gabapentin 100 mg capsule 100 mg PO TID Qty: 270 RF: 3 (DME) OneTouch Verio test strips Strip See Rx Instructions .ROUTE .MEDSUPPLY Qty: 100 RF: 3 (DME) lancets [BD Ultra Fine Lancets] 33 gauge misc See Rx Instructions .ROUTE .MEDSUPPLY Qty: 100 RF: 3 isosorbide mononitrate 120 mg tablet extended release 24 hr 120 mg PO BID Qty: 180 RF: 3 bumetanide 2 mg tablet 1 mg PO QAM Qty: 90 RF: 3 nitroglycerin [Nitrostat] 0.4 mg tablet, sublingual 0.4 mg Sublingual UD PRN (Reason: Chest Pain) Qty: 25 RF: 5 carvedilol 25 mg tablet 25 mg PO BID Qty: 180 RF: 3 albuterol sulfate 90 mcg/actuation HFA aerosol inhaler 2 puff Inhalation QID PRN (Reason: Shortness Of Breath Or Wheezing) Qty: 8.5 RF: 1 (DME) blood-glucose meter [OneTouch Verio Flex Start] Kit See Rx Instructions .ROUTE .MEDSUPPLY Qty: 1 RF: 0 iron 18 mg Tablet 18 mg PO QDL RF: 0 Metamucil 3.4 gram/5.4 gram Powder 1 tbsp PO HS RF: 0 multivitamin [Multiple Vitamins] Tablet 1 tab PO QDL RF: 0 aspirin 81 mg Tablet,Delayed Release (Dr/Ec) 81 mg PO QAM RF: 0 Glucagon Emergency Kit (human) 1 mg Recon Soln 1 dose subcut UD PRN (Reason: Hypoglycemia) RF: 0 docusate sodium 100 mg Capsule 100 mg PO HS RF: 0 fluticasone propionate [Flonase Allergy Relief] 50 mcg/actuation [place],Suspension 1 spray INTRANASAL BID PRN (Reason: Unknown) RF: 0 cinnamon bark [Cinnamon] 500 mg Capsule 1,000 mg PO DAILY PRN (Reason: Hyperglycemia) RF: 0 Citracal-D3 Plus Magnesium 250-40-125 mg-mg-unit tablet 1 tab PO Q OTHER DAY RF: 0 Discontinued spironolactone 50 mg tablet 50 mg PO QAM Qty: 90 RF: 3 cefuroxime axetil 250 mg tablet 250 mg PO BID 10 Days Qty: 20 RF: 0 Discharge Orders: Discharge Order (Routine); Ordered 06/17/20 Ordered By: Jeffrey Musa/Other Patient Handouts: Managing Type 2 Diabetes Admission Data Admit Date/Time: 06/13/20 16:52 Attending Provider: Jeffrey Lyons Admit Provider: Staci Swift Primary Care Provider: Nicolette Marquez Other Providers: Jett Holland ; César Jauregui ; Caridad Herrera Other Interventions: Discharge Summary Assessment (RN) Last Done: 06/17/20 13:28 Coding Level of Care Code D/C Day Management >30 mins Diagnoses Congestive heart failure I50.9 Heart failure chronicity: acute Heart failure type: unspecified Elevated troponin R77.8 COVID-19 U07.1 Hypertension I10 Type 2 diabetes mellitus with kidney complication, with long-term current use of insulin E11.29; Z79.4 DVT prophylaxis Z29.9 Time Spent (min) 32
== END 2020-06-17 15:00 | disposition home or self-care (01) | DRG 280 ==
LOC: ED 13:28 → SUATTDRO 16:52 → 2E 16:52

== ENCOUNTER 2020-12-30 23:53 | Inpatient (IN) ==
[2020-12-31] MEDS ORDERED: ALBUT/IPRATROP 3MG/0.5MG NEB 3 ML VIAL INH STA (00:12)
[2020-12-31 00:44] LABS: Basophils # (auto) 0.02 K/uL (0-0.2); Basophils % (auto) 0.2 %; Eosinophils # (auto) 0.06 K/uL (0-0.5); Eosinophils % (auto) 0.5 %; Hematocrit (blood only) 29.7 % (37-47); Hemoglobin 9.9 g/dL (12.0-16.0); Immature Granulocytes # (auto) 0.05 K/uL (0.00-0.02); Immature Granulocytes % (auto) 0.4 %; Lymphocytes # (auto) 0.98 K/uL (1.2-3.4); Lymphocytes % (auto) 8.1 %; Mean Corpuscular Hemoglobin 31.1 pg (25-34); Mean Corpuscular Hgb Conc 33.3 g/dL (32-36); Mean Corpuscular Volume 93.4 fL (80-100); Mean Platelet Volume 11.2 fL (7.4-10.4); Monocytes # (auto) 0.61 K/uL (0.11-0.59); Neutrophils # (auto) 10.45 K/uL (1.4-6.5); Neutrophils % (auto) 85.8 %; Platelet Count 209 K/uL (130-400); RDW Coefficient of Variation 13.5 % (11.5-14.5); RDW Standard Deviation 46.5 fL (36.4-46.3); Red Blood Count 3.18 M/uL (4.2-5.4); White Blood Count 12.17 K/uL (4.8-10.8)
[2020-12-31 00:55] LABS: INR 1.1 (0.9-1.1); Partial Thromboplastin Time 25.7 Seconds (21.0-31.0)
[2020-12-31] MEDS ORDERED: PIPERACILLIN/TAZOBACTAM 4.5 GM/120 ML BAG IV ONE (01:09)
[2020-12-31] MEDS ORDERED: PIPERACILL/TAZOBAC CONSULT ACTIVE PRN (01:09)
[2020-12-31 01:10] LABS: Appearance Urine Cloudy (Clear); Bacteria Urine Automated 3+ (Negative); Bilirubin Urine Negative (Negative); Blood Urine Negative (Negative); Color Urine Yellow; Glucose Urine UA 2+ (Negative); Ketones Urine Negative (Negative); Leukocyte Esterase Urine 1+ (Negative); Nitrite Urine Positive (Negative); Protein Urine 3+ (Negative); RBC Urine Automated 0-4 /hpf (0-4); Specific Gravity Urine 1.016 (1.000-1.030); Urobilinogen Urine Negative (Negative); WBC Urine Automated >30 /hpf (0-5); pH Urine 5.5 (4.5-7.5)
[2020-12-31 01:11] LABS: Albumin Globulin Ratio 0.8 (0.9-2); Albumin Level 2.8 gm/dl (3.4-5.0); BUN Creatinine Ratio 30.2 (10-20); Bilirubin,Total 0.5 mg/dl (0.2-1); Calcium 8.7 mg/dl (8.5-10.1); Creatinine Clr Calc Pharmacy 15.9 ml/min; Est GFR (African American) 15.4 ml/min; Est GFR (Non-African American) 13.3 ml/min; Globulin 3.7 gm/dl (2.5-4.0); Magnesium 2.4 mg/dl (1.8-2.4); Potassium 3.9 mmol/L (3.5-5.1); Total Protein 6.5 gm/dl (6.4-8.2); Troponin I 0.258 ng/ml (0-0.045)
[2020-12-31 01:27] LABS: Beta-Hydroxybutyrate 3.36 mg/dl (0.2-2.81)
[2020-12-31] MEDS ORDERED: NovoLIN-R INSULIN PER UNIT CHARGE IV STA (02:00)
[2020-12-31] MEDS ORDERED: SODIUM CHLORIDE 0.9% 1000ML 500 ML IV ONE (02:00)
--- NOTE | 2020-12-31 02:04 | Emergency Department Note ---
History of Present Illness General Chief complaint: Respiratory Problems Stated complaint: DIFFICULTY BREATHING/FATIGUE Time Seen by Provider: 12/31/20 00:02 History of Present Illness Maximum Pain Intensity: 2 This 80-year-old presents to the ER complaining of cough shortness of breath and 2 pound weight gain over the past 2 days his oxygen sats are in the high 80s Location: Generalized Quality: Weak Severity: Moderate Duration: Past 2 days Timing: Started 2 days ago Context: Breathing got worse and patient came in Modifying factors: better with rest; worse with activity Patient states she could not sleep tonight because of her breathing and came in. She follows with cardiology. She has had heart failure before. She had Covid at the beginning of the year. She has had her Covid vaccine. Patient denies chest pain, fevers, abdominal pain, vomiting, diarrhea. Patient does not normally wear oxygen. Home Medications Medication Instructions Recorded Confirmed Type aspirin 81 mg tablet,delayed 81 mg PO QAM 04/23/18 12/31/20 History release cinnamon bark 500 mg capsule 1,000 mg PO DAILY PRN 04/23/18 12/31/20 History (Cinnamon) docusate sodium 100 mg capsule 100 mg PO HS 04/23/18 12/31/20 History fluticasone propionate 50 1 spray INTRANASAL BID PRN 04/23/18 12/31/20 History mcg/actuation nasal spray,suspension (Flonase Allergy Relief) glucagon (human recombinant) 1 mg 1 dose SUBCUT UD PRN 04/23/18 12/31/20 History solution for injection (Glucagon Emergency Kit) multivitamin (Multiple Vitamins) 1 tab PO QDL 04/23/18 12/31/20 History iron 18 mg tablet 18 mg PO QDL 11/28/18 12/31/20 History psyllium husk 3.4 gram/5.4 gram 1 tbsp PO HS 11/28/18 12/31/20 History oral powder (Metamucil) calcium 1 tab PO Q OTHER DAY tab 01/21/19 12/31/20 History sip-nye-X4-Qr-pjznop-Ju-boron 250 mg-40 mg-125 unit tablet (Citracal-D3 Plus Magnesium) albuterol sulfate 90 mcg/actuation 2 puff INHALATION QID PRN #8.5 gm 05/22/19 12/31/20 Rx aerosol inhaler albuterol sulfate 2.5 mg INHALATION Q4H PRN #75 ml 06/03/19 12/31/20 Rx insulin aspart U-100 100 unit/mL See Rx Instructions SQ TID 90 Days 03/08/20 12/31/20 Rx (3 mL) subcutaneous pen (Novolog #45 ml Flexpen U-100 Insulin aspart) clopidogrel 75 mg tablet 75 mg PO DAILY #90 tab 03/28/20 12/31/20 Rx gabapentin 100 mg capsule 100 mg PO TID #270 cap 03/28/20 12/31/20 Rx blood-glucose meter (OneTouch #1 ea 04/05/20 12/14/20 History Verio Flex Start) blood sugar diagnostic (OneTouch #100 ea 04/06/20 12/14/20 Rx Verio test strips) lancets 33 gauge (BD Ultra Fine #100 ea 04/06/20 12/14/20 Rx Lancets) isosorbide mononitrate 120 mg 120 mg PO BID #180 tab 05/09/20 12/31/20 Rx tablet,extended release 24 hr carvedilol 25 mg tablet 25 mg PO BID #180 tab 06/01/20 12/31/20 Rx amlodipine 5 mg tablet (Norvasc) 5 mg PO QAM #90 tab 08/08/20 12/31/20 Rx spironolactone 50 mg tablet 50 mg PO QAM #90 tab 08/09/20 12/31/20 Rx hydralazine 100 mg tablet 100 mg PO TID #270 tab 08/29/20 12/31/20 Rx tramadol 50 mg tablet See Rx Instructions .ROUTE 08/29/20 12/31/20 Rx .COMPLEX #120 tablet BD Ultra-Fine Short Pen Needle 31 #400 ea NS 08/30/20 12/14/20 Rx gauge x 5/16" (pen needle, diabetic) bumetanide 2 mg tablet 4 mg PO DAILY tab 10/21/20 12/31/20 History Basaglar KwikPen U-100 Insulin 100 30 unit SUBCUT HS 90 Days #30 ml NS 10/24/20 12/31/20 Rx unit/mL (3 mL) subcutaneous (insulin glargine) pantoprazole 40 mg tablet,delayed 40 mg PO DAILY #90 tab 11/01/20 12/31/20 Rx release nitroglycerin 0.4 mg sublingual 0.4 mg SUBLINGUAL UD PRN #25 tab 12/12/20 12/31/20 Rx tablet (Nitrostat) metoclopramide HCl 5 mg tablet 5 mg PO ACHS 12/31/20 12/31/20 History rosuvastatin 5 mg tablet 5 mg PO 2XWK 12/31/20 12/31/20 History Allergies Allergy/AdvReac Type Severity Reaction Status Date / Time Sulfa (Sulfonamide Allergy Intermediate RASH/PRURIT Verified 12/31/20 01:06 Antibiotics) IS sulfamethoxazole Allergy Intermediate RASH/PRURIT Verified 12/31/20 01:06 [From Bactrim] IS trimethoprim [From Bactrim] Allergy Intermediate RASH/PRURIT Verified 12/31/20 01:06 IS chlorpropamide AdvReac Intermediate N/V Verified 12/31/20 01:06 omeprazole AdvReac Intermediate interacts Verified 12/31/20 01:06 w/ clopidigrol ARI Inhibitors AdvReac Unknown AVOIDS Verified 12/31/20 01:06 SECONDARY TO "OTHER MEDICATIONS" PER PT Past Med/Surg History Medical History Acute asthmatic bronchitis Anemia Asthma CAD (coronary artery disease) Chronic diastolic (congestive) heart failure COVID-19 Diabetic neuropathy Elevated troponin Gastroparesis GERD (gastroesophageal reflux disease) Hyperlipidemia Hypertension Lumbar canal stenosis Osteoarthritis of knee Osteopenia Peripheral artery disease Renal artery stenosis Secondary hyperparathyroidism Sinusitis Type 2 diabetes mellitus with kidney complication, 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, with long-term current use of insulin Vitamin D deficiency Surgical History History of back surgery History of cataract surgery History of cholecystectomy History of coronary artery bypass graft History of coronary artery stent placement History of hysterectomy History of tonsillectomy S/P carpal tunnel release Family History Unknown Coronary heart disease Diabetes Brain cancer Father Kidney disease Brother COPD (chronic obstructive pulmonary disease) Prostate cancer Myocardial infarction Hypertension Heart disease Sister Lung cancer Denies family history of Rheumatoid arthritis Sudden SIDS (sudden infant syndrome) Ovarian cancer Deep vein thrombosis Osteoporosis Dyslipidemia Cerebral aneurysm Alzheimer disease Bipolar disorder Clotting disorder Crohn's disease Dementia Depression Osteoarthritis Breast cancer Schizophrenia Congenital kidney disease Gestational diabetes Colorectal cancer Pulmonary embolism Lung disease Cancer Ulcerative colitis Colonic polyp Stroke Asthma Cystic kidney disease Social History Smoking Status: Never smoker Second Hand Exposure: No; Hx Alcohol Use: No Hx Substance Use: No Preferred Language: German Communication Ability: Effective Visual Impairment: No Limitations Hearing Ability: Normal Combustion Engineer Required: No Beliefs That Will Affect Care: None marital status: / Current Living Situation: Alone current occupational status: retired and disabled 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, 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 How many Children do You have: 3 Feels Safe at Home: Yes Childhood Exposure to Second-Hand Smoke: Yes caffeine: Yes (coffee in AM, rarely a soda) during the past year weight has: remained stable Dental Care, Regularly: No Physical Activity Frequency: 1-2 Times per Week Seatbelt Use: always Sunscreen Use: Yes Assistive Devices: Walker Review of Systems A total of 10 systems reviewed and were otherwise negative Physical Exam Vital Signs Vital Signs - 24 hr 12/31/20 00:09 12/31/20 00:11 12/31/20 00:13 Temperature 36.6 C Temperature Source Oral Pulse Rate 81 Pulse Rate [Right Apical] Pulse Rhythm [Right Apical] Pulse Strength [Right Apical] Respiratory Rate 22 Respiratory Effort / Characteristics Non-Labored Respiratory Depth Normal Respiratory Pattern Blood Pressure 176/96 H Blood Pressure [Left Arm] Blood Pressure Mean 122 Blood Pressure Mean [Left Arm] Blood Pressure Position Sitting Blood Pressure Position [Left Arm] Pulse Oximetry 99 99 Oxygen Delivery Method Nasal Cannula Nasal Cannula Oxygen Flow Rate 4 4 Sepsis Recent Fever Within 48 Hours No Sepsis New/Unexplained Change in Mental Status N/A Sepsis Action Taken by Nursing No Action Required 12/31/20 00:15 12/31/20 00:22 12/31/20 00:39 Temperature Temperature Source Pulse Rate Pulse Rate [Right Apical] 79 76 Pulse Rhythm [Right Apical] Pulse Strength [Right Apical] Respiratory Rate 22 20 Respiratory Effort / Characteristics Spontaneous Respiratory Depth Respiratory Pattern Blood Pressure Blood Pressure [Left Arm] 163/99 H Blood Pressure Mean Blood Pressure Mean [Left Arm] 120 Blood Pressure Position Blood Pressure Position [Left Arm] Lying Pulse Oximetry 99 96 97 Oxygen Delivery Method Nasal Cannula Nasal Cannula Room Air Oxygen Flow Rate 4 3 Sepsis Recent Fever Within 48 Hours Sepsis New/Unexplained Change in Mental Status Sepsis Action Taken by Nursing 12/31/20 02:23 12/31/20 03:14 Temperature Temperature Source Pulse Rate Pulse Rate [Right Apical] 74 164 H Pulse Rhythm [Right Apical] Regular Pulse Strength [Right Apical] Normal Respiratory Rate 22 24 Respiratory Effort / Characteristics Non-Labored Spontaneous Respiratory Depth Normal Respiratory Pattern Regular Blood Pressure Blood Pressure [Left Arm] 179/115 H 164/83 H Blood Pressure Mean Blood Pressure Mean [Left Arm] 136 110 Blood Pressure Position Blood Pressure Position [Left Arm] Sitting Pulse Oximetry 96 95 Oxygen Delivery Method Nasal Cannula Room Air Oxygen Flow Rate 4 Sepsis Recent Fever Within 48 Hours Sepsis New/Unexplained Change in Mental Status Sepsis Action Taken by Nursing VITALS: Vitals are noted on the nurse's note and reviewed by myself. Vital signs hypoxic on room air. GENERAL: Elderly female working to breathe who appears unwell SKIN: The skin was without rashes, erythema, edema, or bruising. There is no tenting of the skin. Capillary reflex less than 2 seconds. HEAD: Normocephalic atraumatic. EARS: External auditory canals clear, tympanic membranes pearly garcia without erythema or effusion bilaterally. EYES: Pupils equal round and reactive to light and accommodation. Conjunctivae without injection, sclerae without icterus. Extraocular movements intact. NOSE: Patent, turbinates without inflammation or discharge. No sinus tenderness. MOUTH: Mucous membranes mildly dry. Pharynx without erythema or exudate. Uvula midline. Airway patent. Tongue does not deviate. NECK: Supple without nuchal rigidity. No lymphadenopathy. No thyromegaly. Cervical spine is nontender. No JVD. HEART: Regular rate and rhythm LUNGS: Bibasilar rales, mild end expiratory wheeze ABDOMEN: Positive bowel sounds x 4. Normal tympanic percussion. Soft, nontender, without masses or organomegaly. Hughes sign negative. No guarding or rebound tenderness. No CVA tenderness MUSCULOSKELETAL: No muscle atrophy, erythema, noted. Right leg is chronically bigger than the left leg per patient. This is unchanged. NEURO: Patient was alert and oriented to person place and time. Normal sensation to light and sharp touch. No focal neurological deficits. Course Administered Medications Azithromycin 500 mg/ Dextrose 255 mls @ 127.5 mls/hr IV NOW STA Stop: 12/31/20 04:21 Last Admin: 12/31/20 03:11 Dose: 127.5 mls/hr Documented by: [id number] Discontinued Medications Albuterol (Albut/Ipratrop 3mg/0.5mg Neb 3 Ml Vial) 3 ml INH NOW STA Stop: 12/31/20 00:13 Last Admin: 12/31/20 00:19 Dose: 3 ml Documented by: [id number] Piperacillin Sod/Tazobactam Sod (Zosyn) 4.5 gm in 120 mls @ 240 mls/hr IV NOW ONE Stop: 12/31/20 01:38 Last Infusion: 12/31/20 02:58 Dose: 0 mls/hr Documented by: [id number] Admin: 12/31/20 02:12 Dose: 240 mls/hr Documented by: [id number] Sodium Chloride (Nss 1000ml) 500 mls @ 999 mls/hr IV .Q31M ONE Stop: 12/31/20 02:30 Last Infusion: 12/31/20 03:11 Dose: 0 mls/hr Documented by: [id number] Admin: 12/31/20 02:30 Dose: 999 mls/hr Documented by: [id number] Insulin Human Regular (Novolin-R Insulin Per Unit Charge) 10 units IV NOW STA Stop: 12/31/20 02:01 Last Admin: 12/31/20 02:39 Dose: 10 units Documented by: [id number] Cosigned by: [id number] Medical Decision Making Medical Records Attestation: I reviewed the patient's medical records. Home Medications Current Medication List: was personally reviewed by me Laboratory Data Attestation: I reviewed the patient's lab results. Result diagrams: 12/31/20 00:35 12/31/20 00:35 Lab Results 12/31/20 12/31/20 12/31/20 Range/Units 00:35 00:35 00:35 WBC 12.17 H (4.8-10.8) K/uL RBC 3.18 L (4.2-5.4) M/uL Hgb 9.9 L (12.0-16.0) g/dL Hct 29.7 L (37-47) % MCV 93.4 (80-100) fL MCH 31.1 (25-34) pg MCHC 33.3 (32-36) g/dL RDW Std Deviation 46.5 H (36.4-46.3) fL RDW Coeff of Duy 13.5 (11.5-14.5) % Plt Count 209 (130-400) K/uL MPV 11.2 H (7.4-10.4) fL Immature Gran % (Auto) 0.4 % Neut % (Auto) 85.8 % Lymph % (Auto) 8.1 % Liberty % (Auto) 5.0 % Eos % (Auto) 0.5 % Baso % (Auto) 0.2 % Neut # (Auto) 10.45 H (1.4-6.5) K/uL Lymph # (Auto) 0.98 L (1.2-3.4) K/uL Liberty # (Auto) 0.61 H (0.11-0.59) K/uL Eos # (Auto) 0.06 (0-0.5) K/uL Baso # (Auto) 0.02 (0-0.2) K/uL Immature Gran # (Auto) 0.05 H (0.00-0.02) K/uL PT 11.0 (9.0-12.0) Seconds INR 1.1 (0.9-1.1) APTT 25.7 (21.0-31.0) Seconds PTT Ratio 1.0 Sodium 130 L (136-145) mmol/L Potassium 3.9 (3.5-5.1) mmol/L Chloride 94 L (98-107) mmol/L Carbon Dioxide 26 (21-32) mmol/L Anion Gap 10.0 (3-11) BUN 96 H (7-18) mg/dl Creatinine 3.16 H (0.6-1.2) mg/dl Est Cr Clr Drug Dosing 15.9 ml/min Est GFR ( Amer) 15.4 ml/min Est GFR (Non-Af Amer) 13.3 ml/min BUN/Creatinine Ratio 30.2 H (10-20) Glucose 403 H* (70-99) mg/dl Lactate (0.4-2.0) mmol/L Calcium 8.7 (8.5-10.1) mg/dl Magnesium 2.4 (1.8-2.4) mg/dl Total Bilirubin 0.5 (0.2-1) mg/dl AST 24 (15-37) U/L ALT 27 (12-78) U/L Alkaline Phosphatase 36 L (45-117) U/L Troponin I 0.258 H* (0-0.045) ng/ml NT-Pro-B Natriuret Pep 45659 H (0-1800) pg/ml Total Protein 6.5 (6.4-8.2) gm/dl Albumin 2.8 L (3.4-5.0) gm/dl Globulin 3.7 (2.5-4.0) gm/dl Albumin/Globulin Ratio 0.8 L (0.9-2) Beta-Hydroxybutyric Acd 3.36 H (0.2-2.81) mg/dl Urine Color Urine Appearance (Clear) Urine pH (4.5-7.5) Ur Specific [place] (1.000-1.030) Urine Protein (Negative) Urine Glucose (UA) (Negative) Urine Ketones (Negative) Urine Blood (Negative) Urine Nitrite (Negative) Urine Bilirubin (Negative) Urine Urobilinogen (Negative) Ur Leukocyte Esterase (Negative) Urine WBC (Auto) (0-5) /hpf Urine RBC (Auto) (0-4) /hpf U Hyaline Cast (Auto) (0-5) /lpf U Epithel Cells (Auto) (0-5) /lpf Urine Bacteria (Auto) (Negative) COVID-19 Eval Order SARS-CoV-2 (PCR) (Negative) 12/31/20 12/31/20 12/31/20 Range/Units 00:35 00:35 01:00 WBC (4.8-10.8) K/uL RBC (4.2-5.4) M/uL Hgb (12.0-16.0) g/dL Hct (37-47) % MCV (80-100) fL MCH (25-34) pg MCHC (32-36) g/dL RDW Std Deviation (36.4-46.3) fL RDW Coeff of Duy (11.5-14.5) % Plt Count (130-400) K/uL MPV (7.4-10.4) fL Immature Gran % (Auto) % Neut % (Auto) % Lymph % (Auto) % Liberty % (Auto) % Eos % (Auto) % Baso % (Auto) % Neut # (Auto) (1.4-6.5) K/uL Lymph # (Auto) (1.2-3.4) K/uL Liberty # (Auto) (0.11-0.59) K/uL Eos # (Auto) (0-0.5) K/uL Baso # (Auto) (0-0.2) K/uL Immature Gran # (Auto) (0.00-0.02) K/uL PT (9.0-12.0) Seconds INR (0.9-1.1) APTT (21.0-31.0) Seconds PTT Ratio Sodium (136-145) mmol/L Potassium (3.5-5.1) mmol/L Chloride (98-107) mmol/L Carbon Dioxide (21-32) mmol/L Anion Gap (3-11) BUN (7-18) mg/dl Creatinine (0.6-1.2) mg/dl Est Cr Clr Drug Dosing ml/min Est GFR ( Amer) ml/min Est GFR (Non-Af Amer) ml/min BUN/Creatinine Ratio (10-20) Glucose (70-99) mg/dl Lactate (0.4-2.0) mmol/L Calcium (8.5-10.1) mg/dl Magnesium (1.8-2.4) mg/dl Total Bilirubin (0.2-1) mg/dl AST (15-37) U/L ALT (12-78) U/L Alkaline Phosphatase (45-117) U/L Troponin I (0-0.045) ng/ml NT-Pro-B Natriuret Pep (0-1800) pg/ml Total Protein (6.4-8.2) gm/dl Albumin (3.4-5.0) gm/dl Globulin (2.5-4.0) gm/dl Albumin/Globulin Ratio (0.9-2) Beta-Hydroxybutyric Acd (0.2-2.81) mg/dl Urine Color Yellow Urine Appearance Cloudy A (Clear) Urine pH 5.5 (4.5-7.5) Ur Specific [place] 1.016 (1.000-1.030) Urine Protein 3+ H (Negative) Urine Glucose (UA) 2+ H (Negative) Urine Ketones Negative (Negative) Urine Blood Negative (Negative) Urine Nitrite Positive A (Negative) Urine Bilirubin Negative (Negative) Urine Urobilinogen Negative (Negative) Ur Leukocyte Esterase 1+ H (Negative) Urine WBC (Auto) >30 H (0-5) /hpf Urine RBC (Auto) 0-4 (0-4) /hpf U Hyaline Cast (Auto) 1-5 (0-5) /lpf U Epithel Cells (Auto) 5-10 H (0-5) /lpf Urine Bacteria (Auto) 3+ H (Negative) COVID-19 Eval Order Covid19 at [facility] SARS-CoV-2 (PCR) NEGATIVE (Negative) 12/31/20 Range/Units 01:47 WBC (4.8-10.8) K/uL RBC (4.2-5.4) M/uL Hgb (12.0-16.0) g/dL Hct (37-47) % MCV (80-100) fL MCH (25-34) pg MCHC (32-36) g/dL RDW Std Deviation (36.4-46.3) fL RDW Coeff of Duy (11.5-14.5) % Plt Count (130-400) K/uL MPV (7.4-10.4) fL Immature Gran % (Auto) % Neut % (Auto) % Lymph % (Auto) % Liberty % (Auto) % Eos % (Auto) % Baso % (Auto) % Neut # (Auto) (1.4-6.5) K/uL Lymph # (Auto) (1.2-3.4) K/uL Liberty # (Auto) (0.11-0.59) K/uL Eos # (Auto) (0-0.5) K/uL Baso # (Auto) (0-0.2) K/uL Immature Gran # (Auto) (0.00-0.02) K/uL PT (9.0-12.0) Seconds INR (0.9-1.1) APTT (21.0-31.0) Seconds PTT Ratio Sodium (136-145) mmol/L Potassium (3.5-5.1) mmol/L Chloride (98-107) mmol/L Carbon Dioxide (21-32) mmol/L Anion Gap (3-11) BUN (7-18) mg/dl Creatinine (0.6-1.2) mg/dl Est Cr Clr Drug Dosing ml/min Est GFR ( Amer) ml/min Est GFR (Non-Af Amer) ml/min BUN/Creatinine Ratio (10-20) Glucose (70-99) mg/dl Lactate 0.9 (0.4-2.0) mmol/L Calcium (8.5-10.1) mg/dl Magnesium (1.8-2.4) mg/dl Total Bilirubin (0.2-1) mg/dl AST (15-37) U/L ALT (12-78) U/L Alkaline Phosphatase (45-117) U/L Troponin I (0-0.045) ng/ml NT-Pro-B Natriuret Pep (0-1800) pg/ml Total Protein (6.4-8.2) gm/dl Albumin (3.4-5.0) gm/dl Globulin (2.5-4.0) gm/dl Albumin/Globulin Ratio (0.9-2) Beta-Hydroxybutyric Acd (0.2-2.81) mg/dl Urine Color Urine Appearance (Clear) Urine pH (4.5-7.5) Ur Specific [place] (1.000-1.030) Urine Protein (Negative) Urine Glucose (UA) (Negative) Urine Ketones (Negative) Urine Blood (Negative) Urine Nitrite (Negative) Urine Bilirubin (Negative) Urine Urobilinogen (Negative) Ur Leukocyte Esterase (Negative) Urine WBC (Auto) (0-5) /hpf Urine RBC (Auto) (0-4) /hpf U Hyaline Cast (Auto) (0-5) /lpf U Epithel Cells (Auto) (0-5) /lpf Urine Bacteria (Auto) (Negative) COVID-19 Eval Order SARS-CoV-2 (PCR) (Negative) Imaging Data Attestation: I personally reviewed and interpreted this imaging study as follows: MDM Narrative Prior records/ancillary studies reviewed. Triage Nursing notes reviewed. Additional history obtained from the family. The patient's history was concerning for respiratory difficulties. Differential diagnosis: Etiologies such as infections, reactive airway disease, pneumonia, pneumothorax, COPD, CHF, cardiac ischemia, pulmonary embolism, musculoskeletal, gastrointestinal, as well as others were entertained. Physical examination: As above. ER treatment provided: An order was placed for continuous cardiac monitoring. The monitor shows a rate of 60-1 20 with a sinus rhythm. Nebulizer, insulin, Zosyn On reassessment the patient felt better. Diagnostic interpretation by me: The electrocardiogram was ordered for dyspnea EKG: Normal sinus, left axis deviation, right bundle branch block, rate of 80. EKG compared to prior EKG with no acute changes noted. Impression normal sinus rhythm with a right bundle branch block and the left axis deviation unchanged from prior. Interpreted by myself. The labs revealed hyperglycemia without DKA, leukocytosis., Positive troponin which is trending down from prior Elevated creatinine slightly higher from baseline Elevated BNP [facility] [address] [place] [address] / Director: Dusty Mcneill M.D. Clinical Laboratory Report Name: KENIA BUCIO Acct: [id number] Status: DIS IN : 1940 [facility] [place] Date: 06/13/20 Age: 80 Sex: F Dis Date: 06/17/20 Loc: ICU Medical [address] [place] [address]/Bed: [facility] [place] Spec: [id number] Collected: 06/13/20 Received: 06/13/[address]: Jacky Jolley MD Source: Urine,Clean Catch OV Order: Ordered: Urine Culture Procedure Result Verified Site Urine Culture Final 06/15/20 Organism 1 Citrobacter freundii [place] Count >100,000 CFU/ml Sens Sensitivities to Follow C freundii RX M.I.C. --- --------- Cefepime S <=2 Ceftriaxone R >2 Ciprofloxacin R >2 Ertapenem S <=0.5 Gentamicin S <=4 Levofloxacin R 2 Meropenem S <=1 Nitrofurantoin S <=32 Tobramycin S <=4 Trimeth/Sulfa R >2/38 Pip/Tazo S <=16 S = SENSITIVE I = INTERMEDIATE R = RESISTANT Imaging studies: Chest x-ray multifocal consolidations concerning for possible pneumonia versus CHF per my interpretation. CT CHEST Without Contrast: Mild to moderate rounded patchyinfiltrates in the mid to lower lungs bilaterally, greater on the right than the left consistent with pneumonia. Small right and trace left pleural effusions measuring up to 3 cm. Previous CABG with moderate cardiomegalyand severe coronarycalcification. Consider mild CHF as well. The aorta is calcified but nondilated. There is calcified plaque filling the origin of the left subclavian artery. No mediastinal or axillarylymph adenopathyor mass is present. Limited images of the upper abdomen are unremarkable. Moderate to severe osteophytosis throughout the thoracic spine. No acute fracture or bone lesion is seen. Radiologist: Kaleb Gaston MD Consultation: A consultation was placed with the hospitalist. The case was discussed and diagnostics were reviewed. The patient was evaluated in the ER for further treatment. This appears to be consistent with pneumonia w/ CHF and UTI. Patient start antibiotics. She was given insulin. Medicine was consulted. She will be evaluated for admission. Patient was hypoxic on room air she improved with nasal cannula. She was given a nebulizer. By the evaluation outlined above emergent etiologies such as pulmonary embolism, reactive airway disease, pneumothorax, musculoskeletal, as well as others were deemed relatively unlikely. The pt informed about the findings as listed above. All questions were answered and pleased with the treatment. The chart was completed utilizing [employer] Speech voice recognition software. Grammatical errors, random word insertions, pronoun errors, and incomplete sentences are an occassional consequence of this system due to software limitations, ambient noise, and hardware issues. Any formal questions or concerns about the content, text, or information contained within the body of this dictation should be directly addressed to the physician senior office assistant for clarification. Impression & Plan Congestive heart failure, Acute UTI, Pneumonia, Diabetes mellitus with hyperglycemia Discharge Plan Visit Data Chief Complaint: Respiratory Problems Stated Complaint: DIFFICULTY BREATHING/FATIGUE ED Provider: Aby Hicks ED Midlevel Provider: Norma Garcia Discharge Problem: Congestive heart failure, Acute UTI, Pneumonia, Diabetes mellitus with hyperglycemia Patient Disposition: Admitted As Inpatient Condition: Fair Forms Stand Alone Forms: My [employer] Prescriptions Prescriptions: No Action albuterol sulfate 2.5 mg /3 mL (0.083 %) solution for nebulization 2.5 mg INHALATION Q4H PRN (Reason: Shortness Of Breath) Qty: 75 RF: 3 insulin aspart U-100 [Novolog Flexpen U-100 Insulin] 100 unit/mL (3 mL) insulin pen See Rx Instructions SQ TID 90 Days Qty: 45 RF: 3 clopidogrel 75 mg tablet 75 mg PO DAILY Qty: 90 RF: 3 gabapentin 100 mg capsule 100 mg PO TID Qty: 270 RF: 3 (DME) OneTouch Verio test strips Strip See Rx Instructions .ROUTE .MEDSUPPLY Qty: 100 RF: 3 (DME) lancets [BD Ultra Fine Lancets] 33 gauge misc See Rx Instructions .ROUTE .MEDSUPPLY Qty: 100 RF: 3 isosorbide mononitrate 120 mg tablet extended release 24 hr 120 mg PO BID Qty: 180 RF: 3 amlodipine [Norvasc] 5 mg tablet 5 mg PO QAM Qty: 90 RF: 3 spironolactone 50 mg tablet 50 mg PO QAM Qty: 90 RF: 3 hydralazine 100 mg tablet 100 mg PO TID Qty: 270 RF: 3 tramadol 50 mg tablet See Rx Instructions .ROUTE .COMPLEX Qty: 120 RF: 3 (DME) pen needle, diabetic [BD Ultra-Fine Short Pen Needle] 31 gauge x 5/16" needle See Dose Instructions .ROUTE .MEDSUPPLY Qty: 400 RF: 1 Basaglar KwikPen U-100 Insulin 100 unit/mL (3 mL) insulin pen 30 unit subcut HS 90 Days Qty: 30 RF: 3 pantoprazole 40 mg tablet,delayed release (DR/EC) 40 mg PO DAILY Qty: 90 RF: 3 bumetanide 2 mg tablet 4 mg PO DAILY RF: 0 carvedilol 25 mg tablet 25 mg PO BID Qty: 180 RF: 3 nitroglycerin [Nitrostat] 0.4 mg tablet, sublingual 0.4 mg Sublingual UD PRN (Reason: Chest Pain) Qty: 25 RF: 5 albuterol sulfate 90 mcg/actuation HFA aerosol inhaler 2 puff Inhalation QID PRN (Reason: Shortness Of Breath Or Wheezing) Qty: 8.5 RF: 1 (DME) blood-glucose meter [OneTouch Verio Flex Start] Kit See Rx Instructions .ROUTE .MEDSUPPLY Qty: 1 RF: 0 iron 18 mg Tablet 18 mg PO QDL RF: 0 Metamucil 3.4 gram/5.4 gram Powder 1 tbsp PO HS RF: 0 multivitamin [Multiple Vitamins] Tablet 1 tab PO QDL RF: 0 aspirin 81 mg Tablet,Delayed Release (Dr/Ec) 81 mg PO QAM RF: 0 Glucagon Emergency Kit (human) 1 mg Recon Soln 1 dose subcut UD PRN (Reason: Hypoglycemia) RF: 0 docusate sodium 100 mg Capsule 100 mg PO HS RF: 0 fluticasone propionate [Flonase Allergy Relief] 50 mcg/actuation [place],Suspension 1 spray INTRANASAL BID PRN (Reason: Congestion) RF: 0 cinnamon bark [Cinnamon] 500 mg Capsule 1,000 mg PO DAILY PRN (Reason: Hyperglycemia) RF: 0 Citracal-D3 Plus Magnesium 250-40-125 mg-mg-unit tablet 1 tab PO Q OTHER DAY RF: 0 metoclopramide HCl 5 mg tablet 5 mg PO ACHS RF: 0 rosuvastatin 5 mg tablet 5 mg PO 2XWK RF: 0 Referrals Referrals: Nicolette Marquez MD [Primary Care Provider] - Discharge Problem: Congestive heart failure Qualifiers: Heart failure type: unspecified Heart failure chronicity: unspecified Qualified Code(s): I50.9 - Heart failure, unspecified
[2020-12-31] MEDS ORDERED: AZITHROMYCIN 500 MG in DEXTROSE 5% 250 ML IV STA (02:22)
--- NOTE | 2020-12-31 02:23 | History & Physical Report ---
Date of Service December 31, 2020 Assessment & Plan (1) Pneumonia: Plan: 80yo female with multiple medical comorbidities presenting with SOB as well as productive cough, orthopnea, weight gain. Elevated WBC, CT findings concerning for infectious process. Covid-19 is negative -Admit to PCU -Check procalcitonin -Follow cultures -Supplemental O2 as needed to maintain saturations >92% -IV Ceftriaxone and Azithromycin for CAP coverage -Continue Albuterol PRN (2) Congestive heart failure: Plan: Patient with history of CHF. Dry weight estimated to be 200# - patient is >218# at present. Endorses worsening edema and orhtopnea. Has elevated BNP. She follows with Dr. Barlow, last seen 12/11/20 as well as Caridad Herrera in the Heart Failure clinic -Bumex 2mg IV x 1 ordered -Continue PO Bumex -Daily weights -Monitor I/Os -Continue home medications - Carvedilol, Hydralazine, Isosorbide moninitrate and spironolactone. (3) Diabetes mellitus with hyperglycemia: Plan: Elevated blood sugar today at 403. Patient reports it has been high today, >200. She has history of severe hypoglycemia requiring hospitalization. Will target higher blood sugar goal while inpatient. Has B-HB present but no anion gap - doubt DKA. BSG elevated. Was administered 10u of IV insulin in the ER. Repeat BSG = 277 -Lantus 15u BID, ISS. -Goal blood sugar 140 - 180 while inpatient -CC diet as tolerated -Continue Reglan (4) CKD (chronic kidney disease) stage 4, GFR 15-29 ml/min: Plan: Mild elevation in BUN and Cr from baseline. -Avoid nephrotoxic agents -Renal dosing where needed -Follow BUN, Cr, electrolytes and UOP (5) CAD (coronary artery disease): Plan: Patient with longstanding history of CAD with stable angina. She follows with Dr. Barlow -Continue ASA -Plavix reportedly on hold as she is to have an injection soon in her hip. Will continue to hold this -Continue Crestor -Continue Carvedilol -Repeat troponin x 1 (6) Hypertension: Plan: Blood pressure elevated -Continue home agents -Continue to monitor (7) Hyperlipidemia: Plan: Chronic -Continue Crestor (8) GERD (gastroesophageal reflux disease): Plan: Chronic -Continue Protonix Plan: F/E/N - Diuresis with Bumex IV as above, monitor electrolytes and replete as needed, CC/Na restriction diet as toleated Ppx - Heparin Code - DNR/DNI per discussion with patient Dispo - admit to PCU History of Present Illness Chief Complaint: SOB Primary Care Provider: Nicolette Marquez MD Treva Sosa is a pleasant 80yo female with multiple medical comorbidities presenting with SOB ongoing x 4 days. She reports feeling short of breath as well as orthopnea, EASLEY, weight gain of 2# today. She has a cough productive for dark yellow sputum as well as some sweating at night. She denies fever, chills, palpitations, abdominal pain, nausea, vomiting, diarrhea, dysuria Does have some feeling of "congestion" across her chest as well as chronic constipation. No additional complaints at this time. Patient had Covid-19 infection in May and has been vaccinated as well. ER Course: Albuterol, Zosyn Allergies Allergy/AdvReac Type Severity Reaction Status Date / Time Sulfa (Sulfonamide Allergy Intermediate RASH/PRURIT Verified 12/31/20 01:06 Antibiotics) IS sulfamethoxazole Allergy Intermediate RASH/PRURIT Verified 12/31/20 01:06 [From Bactrim] IS trimethoprim [From Bactrim] Allergy Intermediate RASH/PRURIT Verified 12/31/20 01:06 IS chlorpropamide AdvReac Intermediate N/V Verified 12/31/20 01:06 omeprazole AdvReac Intermediate interacts Verified 12/31/20 01:06 w/ clopidigrol ARI Inhibitors AdvReac Unknown AVOIDS Verified 12/31/20 01:06 SECONDARY TO "OTHER MEDICATIONS" PER PT Home Medications Medication Instructions Recorded Confirmed Type aspirin 81 mg tablet,delayed 81 mg PO QAM 04/23/18 12/31/20 History release cinnamon bark 500 mg capsule 1,000 mg PO DAILY PRN 04/23/18 12/31/20 History (Cinnamon) docusate sodium 100 mg capsule 100 mg PO HS 04/23/18 12/31/20 History fluticasone propionate 50 1 spray INTRANASAL BID PRN 04/23/18 12/31/20 History mcg/actuation nasal spray,suspension (Flonase Allergy Relief) glucagon (human recombinant) 1 mg 1 dose SUBCUT UD PRN 04/23/18 12/31/20 History solution for injection (Glucagon Emergency Kit) multivitamin (Multiple Vitamins) 1 tab PO QDL 04/23/18 12/31/20 History iron 18 mg tablet 18 mg PO QDL 11/28/18 12/31/20 History psyllium husk 3.4 gram/5.4 gram 1 tbsp PO HS 11/28/18 12/31/20 History oral powder (Metamucil) calcium 1 tab PO Q OTHER DAY tab 01/21/19 12/31/20 History [id number]-Ig-boron 250 mg-40 mg-125 unit tablet (Citracal-D3 Plus Magnesium) albuterol sulfate 90 mcg/actuation 2 puff INHALATION QID PRN #8.5 gm 05/22/19 12/31/20 Rx aerosol inhaler albuterol sulfate 2.5 mg INHALATION Q4H PRN #75 ml 06/03/19 12/31/20 Rx insulin aspart U-100 100 unit/mL See Rx Instructions SQ TID 90 Days 03/08/20 12/31/20 Rx (3 mL) subcutaneous pen (Novolog #45 ml Flexpen U-100 Insulin aspart) clopidogrel 75 mg tablet 75 mg PO DAILY #90 tab 03/28/20 12/31/20 Rx gabapentin 100 mg capsule 100 mg PO TID #270 cap 03/28/20 12/31/20 Rx blood-glucose meter (OneTouch #1 ea 04/05/20 12/14/20 History Verio Flex Start) blood sugar diagnostic (OneTouch #100 ea 04/06/20 12/14/20 Rx Verio test strips) lancets 33 gauge (BD Ultra Fine #100 ea 04/06/20 12/14/20 Rx Lancets) isosorbide mononitrate 120 mg 120 mg PO BID #180 tab 05/09/20 12/31/20 Rx tablet,extended release 24 hr carvedilol 25 mg tablet 25 mg PO BID #180 tab 06/01/20 12/31/20 Rx amlodipine 5 mg tablet (Norvasc) 5 mg PO QAM #90 tab 08/08/20 12/31/20 Rx spironolactone 50 mg tablet 50 mg PO QAM #90 tab 08/09/20 12/31/20 Rx hydralazine 100 mg tablet 100 mg PO TID #270 tab 08/29/20 12/31/20 Rx tramadol 50 mg tablet See Rx Instructions .ROUTE 08/29/20 12/31/20 Rx .COMPLEX #120 tablet BD Ultra-Fine Short Pen Needle 31 #400 ea NS 08/30/20 12/14/20 Rx gauge x 5/16" (pen needle, diabetic) bumetanide 2 mg tablet 4 mg PO DAILY tab 10/21/20 12/31/20 History Basaglar KwikPen U-100 Insulin 100 30 unit SUBCUT HS 90 Days #30 ml NS 10/24/20 12/31/20 Rx unit/mL (3 mL) subcutaneous (insulin glargine) pantoprazole 40 mg tablet,delayed 40 mg PO DAILY #90 tab 11/01/20 12/31/20 Rx release nitroglycerin 0.4 mg sublingual 0.4 mg SUBLINGUAL UD PRN #25 tab 12/12/20 12/31/20 Rx tablet (Nitrostat) metoclopramide HCl 5 mg tablet 5 mg PO ACHS 12/31/20 12/31/20 History rosuvastatin 5 mg tablet 5 mg PO 2XWK 12/31/20 12/31/20 History Past Med/Surg History Medical History Acute asthmatic bronchitis Anemia Asthma CAD (coronary artery disease) Chronic diastolic (congestive) heart failure COVID-19 Diabetic neuropathy Elevated troponin Gastroparesis GERD (gastroesophageal reflux disease) Hyperlipidemia Hypertension Lumbar canal stenosis Osteoarthritis of knee Osteopenia Peripheral artery disease Renal artery stenosis Secondary hyperparathyroidism Sinusitis Type 2 diabetes mellitus with kidney complication, 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, with long-term current use of insulin Vitamin D deficiency Surgical History History of back surgery History of cataract surgery History of cholecystectomy History of coronary artery bypass graft History of coronary artery stent placement History of hysterectomy History of tonsillectomy S/P carpal tunnel release Family History Unknown Coronary heart disease Diabetes Brain cancer Father Kidney disease Brother COPD (chronic obstructive pulmonary disease) Prostate cancer Myocardial infarction Hypertension Heart disease Sister Lung cancer Denies family history of Rheumatoid arthritis Sudden SIDS (sudden syndrome) Ovarian cancer Deep vein thrombosis Osteoporosis Dyslipidemia Cerebral aneurysm Alzheimer disease Bipolar disorder Clotting disorder Crohn's disease Dementia Depression Osteoarthritis Breast cancer Schizophrenia Congenital kidney disease Gestational diabetes Colorectal cancer Pulmonary embolism Lung disease Cancer Ulcerative colitis Colonic polyp Stroke Asthma Cystic kidney disease Social History Smoking Status: Never smoker Second Hand Exposure: No; Hx Alcohol Use: No Hx Substance Use: No Preferred Language: Lao Communication Ability: Effective Visual Impairment: No Limitations Hearing Ability: Normal Wardrobe Image Consultant Required: No Beliefs That Will Affect Care: None marital status: / Current Living Situation: Alone current occupational status: retired and disabled 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[employer], 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 How many Children do You have: 3 Feels Safe at Home: Yes Safety Concerns: Feels Safe At This Time Childhood Exposure to Second-Hand Smoke: Yes caffeine: Yes (coffee in AM, rarely a soda) during the past year weight has: remained stable Dental Care, Regularly: No Physical Activity Frequency: 1-2 Times per Week Seatbelt Use: always Sunscreen Use: Yes Assistive Devices: Walker Review of Systems Review of Systems: All systems reviewed & are unremarkable except as noted in HPI & below Physical Exam Physical Exam: General: patient resting comfortably, NAD, ill in appearance, AA&O x 4 Skin: warm, moist, intact, no rashes or lesions HEENT: NC/AT, PERRL, EOMI, anicteric sclera, conjunctiva without injection, external ear normal to inspection and nontender, nares patent, moist mucus membranes, dentition intact, no oropharyngeal lesions, neck supple, trachea midline, no LAD, no thyromegaly, no JVD Heart: +S1/S2, regular, no m/r/g Lungs: equal air entry bilaterally, +Crackles in mid-lung field noted on R, no wheezing, diminished breath sounds in bilateral bases Abd: +BS, soft, NT/ND, no masses/organomegaly/ascites Ext: warm, 2+ pulses in UE/LE bilaterally, no clubbing/cyanosis, 1+ edema of bilateral LEs Neuro: nonfocal, patient AA&O x 4, speech intact, no facial droop, moving all extremities on command with equal strength 5/5 Results & Data Results & Data ([place]) Vital Signs (Past 12 Hours) Vital Signs Temp Pulse Pulse Resp BP BP Pulse Ox 12/31/20 00:39 76 20 163/99 H 97 12/31/20 00:22 79 22 96 12/31/20 00:15 99 12/31/20 00:13 99 12/31/20 00:09 36.6 C 81 22 176/96 H 99 Laboratory Results Laboratory Results WBC 12.17 K/uL (4.8-10.8) H 12/31/20 00:35 RBC 3.18 M/uL (4.2-5.4) L 12/31/20 00:35 Hgb 9.9 g/dL (12.0-16.0) L 12/31/20 00:35 Hct 29.7 % (37-47) L 12/31/20 00:35 MCV 93.4 fL (80-100) 12/31/20 00:35 MCH 31.1 pg (25-34) 12/31/20 00:35 MCHC 33.3 g/dL (32-36) 12/31/20 00:35 RDW Std Deviation 46.5 fL (36.4-46.3) H 12/31/20 00:35 RDW Coeff of Duy 13.5 % (11.5-14.5) 12/31/20 00:35 Plt Count 209 K/uL (130-400) 12/31/20 00:35 MPV 11.2 fL (7.4-10.4) H 12/31/20 00:35 Immature Gran % (Auto) 0.4 % 12/31/20 00:35 Neut % (Auto) 85.8 % 12/31/20 00:35 Lymph % (Auto) 8.1 % 12/31/20 00:35 [place] % (Auto) 5.0 % 12/31/20 00:35 Eos % (Auto) 0.5 % 12/31/20 00:35 Baso % (Auto) 0.2 % 12/31/20 00:35 Neut # (Auto) 10.45 K/uL (1.4-6.5) H 12/31/20 00:35 Lymph # (Auto) 0.98 K/uL (1.2-3.4) L 12/31/20 00:35 [place] # (Auto) 0.61 K/uL (0.11-0.59) H 12/31/20 00:35 Eos # (Auto) 0.06 K/uL (0-0.5) 12/31/20 00:35 Baso # (Auto) 0.02 K/uL (0-0.2) 12/31/20 00:35 Immature Gran # (Auto) 0.05 K/uL (0.00-0.02) H 12/31/20 00:35 PT 11.0 Seconds (9.0-12.0) 12/31/20 00:35 INR 1.1 (0.9-1.1) 12/31/20 00:35 APTT 25.7 Seconds (21.0-31.0) 12/31/20 00:35 PTT Ratio 1.0 12/31/20 00:35 Sodium 130 mmol/L (136-145) L 12/31/20 00:35 Potassium 3.9 mmol/L (3.5-5.1) 12/31/20 00:35 Chloride 94 mmol/L (98-107) L 12/31/20 00:35 Carbon Dioxide 26 mmol/L (21-32) 12/31/20 00:35 Anion Gap 10.0 (3-11) 12/31/20 00:35 BUN 96 mg/dl (7-18) H 12/31/20 00:35 Creatinine 3.16 mg/dl (0.6-1.2) H 12/31/20 00:35 Est Cr Clr Drug Dosing 15.9 ml/min 12/31/20 00:35 Est GFR ( Amer) 15.4 ml/min 12/31/20 00:35 Est GFR (Non-Af Amer) 13.3 ml/min 12/31/20 00:35 BUN/Creatinine Ratio 30.2 (10-20) H 12/31/20 00:35 Glucose 403 mg/dl (70-99) H* 12/31/20 00:35 Lactate 0.9 mmol/L (0.4-2.0) 12/31/20 01:47 Calcium 8.7 mg/dl (8.5-10.1) 12/31/20 00:35 Magnesium 2.4 mg/dl (1.8-2.4) 12/31/20 00:35 Total Bilirubin 0.5 mg/dl (0.2-1) 12/31/20 00:35 AST 24 U/L (15-37) 12/31/20 00:35 ALT 27 U/L (12-78) 12/31/20 00:35 Alkaline Phosphatase 36 U/L (45-117) L 12/31/20 00:35 Troponin I 0.258 ng/ml (0-0.045) H* 12/31/20 00:35 NT-Pro-B Natriuret Pep 53180 pg/ml (0-1800) H 12/31/20 00:35 Total Protein 6.5 gm/dl (6.4-8.2) 12/31/20 00:35 Albumin 2.8 gm/dl (3.4-5.0) L 12/31/20 00:35 Globulin 3.7 gm/dl (2.5-4.0) 12/31/20 00:35 Albumin/Globulin Ratio 0.8 (0.9-2) L 12/31/20 00:35 Beta-Hydroxybutyric Acd 3.36 mg/dl (0.2-2.81) H 12/31/20 00:35 Urine Color Yellow 12/31/20 01:00 Urine Appearance Cloudy (Clear) A 12/31/20 01:00 Urine pH 5.5 (4.5-7.5) 12/31/20 01:00 Ur Specific Starlight 1.016 (1.000-1.030) 12/31/20 01:00 Urine Protein 3+ (Negative) H 12/31/20 01:00 Urine Glucose (UA) 2+ (Negative) H 12/31/20 01:00 Urine Ketones Negative (Negative) 12/31/20 01:00 Urine Blood Negative (Negative) 12/31/20 01:00 Urine Nitrite Positive (Negative) A 12/31/20 01:00 Urine Bilirubin Negative (Negative) 12/31/20 01:00 Urine Urobilinogen Negative (Negative) 12/31/20 01:00 Ur Leukocyte Esterase 1+ (Negative) H 12/31/20 01:00 Urine WBC (Auto) >30 /hpf (0-5) H 12/31/20 01:00 Urine RBC (Auto) 0-4 /hpf (0-4) 12/31/20 01:00 U Hyaline Cast (Auto) 1-5 /lpf (0-5) 12/31/20 01:00 U Epithel Cells (Auto) 5-10 /lpf (0-5) H 12/31/20 01:00 Urine Bacteria (Auto) 3+ (Negative) H 12/31/20 01:00 COVID-19 Eval Order Covid19 at [facility] 12/31/20 00:35 SARS-CoV-2 (PCR) NEGATIVE (Negative) 12/31/20 00:[address] Chest - by STAT rad - Mild to moderate rounded patchy infilatrates in the mid to lower lungs bilaterally, greater on the right than the left consistent with PNA. Small right and trace left pleural effusions measurin gup to 3cm. Previous CABG wtih moderate cardiomegaly and severe coronary calcification. Consider mild CHF as well. The aorta is calcified but nondilated. There is calcified plaque filling the origin of the left subclavian artery. No mediastinal or axillary LAD or mass is present. Limited images of the upper abdomen are unremarkable. MOderate to severe osteophytosis throughout the thoracic spine. No acute fracuture or bone lesion is seen. ECG Additional Comments: EKG wtih NSR at 80bpm, TJ=399, JTG=558, NRn=121, RBBB present, ST changes present in anterior leads - similar to prior study from May although appear slighlty more pronounced in V3-V5 Code Status & VTE Plan VTE Prophylaxis Plan VTE Prophylaxis will be ordered: Yes PG Care Time/CCT Total # of Minutes Spent Total Time Spent with Patient: Total time spent is greater than 50% in coordination of care (as documented) at patient's floor/unit and/or counseling patient: Coding Level of Care Code 17437 Initial Inpt Care Lvl 3 Diagnoses Congestive heart failure I50.9 Heart failure chronicity: unspecified Heart failure type: unspecified Pneumonia J18.9 Diabetes mellitus with hyperglycemia E11.65 CKD (chronic kidney disease) stage 4, GFR 15-29 ml/min N18.4 CAD (coronary artery disease) I25.10 Hypertension I10 Hyperlipidemia E78.5 GERD (gastroesophageal reflux disease) K21.9 (1) Congestive heart failure Heart failure chronicity: unspecified Heart failure type: unspecified Qualified Code(s): I50.9 - Heart failure, unspecified
[2020-12-31] MEDS ORDERED: ACETAMINOPHEN 1,000 MG/100 ML VIAL IV STA (03:37)
[2020-12-31] MEDS ORDERED: GLUCOSE 10 TABS/TUBE PO PRN (04:33)
[2020-12-31] MEDS ORDERED: ONDANSETRON INJ 2 MG/ML 2 ML VIAL IV PRN (04:33)
[2020-12-31] MEDS ORDERED: GLUCOSE 40% GEL 15 GM TUBE PO PRN (04:33)
[2020-12-31] MEDS ORDERED: DEXTROSE 50% 50 ML SYRINGE IV PRN (04:33)
[2020-12-31] MEDS ORDERED: GLUCAGON FOR INJ 1 MG VIAL SQ PRN (04:33)
[2020-12-31] MEDS ORDERED: BUMETANIDE 2 MG in SYRINGE 0 ML IV ONE (05:00)
[2020-12-31] MEDS: HEPARIN SOD 5,000 UNIT/0.5 ML VIAL SQ SCH ×3 (06:11→20:58)
[2020-12-31] MEDS ORDERED: Heparin IV Adult Wt-Based Standard WITH Bolus Protocol IV SCH (08:18)
[2020-12-31] MEDS ORDERED: CLOPIDOGREL BISULFATE 75 MG TAB PO ONE (08:20)
[2020-12-31] MEDS: METOCLOPRAMIDE HCL 5 MG TABLET PO SCH ×4 (08:23→20:46)
[2020-12-31] MEDS: ISOSORBIDE MONO EXTENDED REL 60 MG TABCR PO SCH ×2 (08:24→20:45)
[2020-12-31] MEDS: SPIRONOLACTONE 25 MG TAB PO SCH (08:26)
[2020-12-31] MEDS: GABAPENTIN 100 MG CAP PO SCH ×3 (08:26→20:45)
[2020-12-31] MEDS: PANTOprazole 40 MG TAB PO SCH (08:26)
[2020-12-31] MEDS: hydrALAZINE TAB 50 MG TAB PO SCH ×3 (08:26→20:47)
[2020-12-31] MEDS ORDERED: HEPARIN SOD (PORCINE) 1000 UNIT/ML IV ONE (08:27)
[2020-12-31] MEDS: BUMETANIDE 1 MG TAB PO SCH (08:28)
[2020-12-31] MEDS: ASPIRIN 81 MG ECTAB PO SCH (08:28)
[2020-12-31] MEDS: amLODIPine BESYLATE 5 MG TAB PO SCH (08:29)
[2020-12-31] MEDS: carvediloL 25 MG TAB PO SCH ×2 (08:29→20:46)
--- NOTE | 2020-12-31 08:29 | Hospitalist Progress Note ---
Date of Service December 31, 2020 Assessment & Plan (1) Pneumonia: Plan: 80yo female with multiple medical comorbidities presenting with SOB as well as productive cough, orthopnea, weight gain. Elevated WBC, CT findings concerning for infectious process. Covid-19 is negative Cough, shortness of breath 2/2 pneumonia with underlying CHF -Admit to PCU -Procal neg -BC ngtd -Supplemental O2 as needed to maintain saturations >92% -IV Ceftriaxone and Azithromycin for CAP coverage -Continue Albuterol PRN (2) Troponin level elevated: Plan: - Pt clinically asymptomatic, no chest pain at assessment - EKG on admission with lateral ST depressions - Troponin elevated from 0.258 to 5.420 - Repeat EKG with improvement in lateral ischemic changes, appears near prior baseline. - Discussed with cardiology. Likely demand in the setting of underlying cardiac disease with superimposed PNA. Will re-start plaavix (previously on hold pending ortho hip injection) and defer heparinization at this time. If develops symptoms of ACS or EKG worsens will initiate heparinization and consult. - TTE pending (3) Congestive heart failure: Plan: - Patient with history of CHF. Dry weight estimated to be 200# - patient is >218# at present. Endorses worsening edema and orhtopnea. - BNP elevated\\ - Follows with Dr. Barlow, last seen 12/11/20 as well as Caridad Herrera in the Heart Failure clinic - Last echo with EF ~45%, moderace concentric LVH, grade II diastolic dysfunction, mild LA/RA dilation. Repeat TTE pending. - Bumex 2mg IV x 1 on admit - Continue PO Bumex -Daily weights -Monitor I/Os -Continue home medications - Carvedilol, Hydralazine, Isosorbide moninitrate and spironolactone. (4) Diabetes mellitus with hyperglycemia: Plan: - Elevated blood sugar to 403 at admit. - History of severe hypoglycemia requiring hospitalization. - On admit B-HB present but no anion gap - doubt DKA. BSG elevated. Was administered 10u of IV insulin in the ER. Repeat BSG = 277 - Lantus 15u BID, ISS. - Goal blood sugar 140 - 180 while inpatient - CC diet as tolerated - Continue Reglan (5) CKD (chronic kidney disease) stage 4, GFR 15-29 ml/min: Plan: - Mild elevation in BUN and Cr from baseline. -Avoid nephrotoxic agents -Renal dosing where needed -Follow BUN, Cr, electrolytes and UOP (6) CAD (coronary artery disease): Plan: - Patient with longstanding history of CAD with stable angina. She follows with Dr. Barlow -Continue ASA -Plavix reportedly on hold as she is to have an injection soon in her hip. Restarted 2/2 elevated troponin, see troponin. -Continue Crestor -Continue Carvedilol - Trend troponins q6h to peak (7) Hypertension: Plan: Blood pressure elevated -Continue home agents -Continue to monitor (8) Hyperlipidemia: Plan: Chronic -Continue Crestor (9) GERD (gastroesophageal reflux disease): Plan: Chronic -Continue Protonix Plan: F/E/N - Diuresis with Bumex IV as above, monitor electrolytes and replete as needed, CC/Na restriction diet as toleated Ppx - Heparin Code - DNR/DNI per discussion with patient Dispo - admit to PCU Admission and Anticipated Discharge Date Admission Date: December 31, 2020 Beth Tilley is seen at the bedside this morning. She reports that she feels fatigued, and has had a productive cough but has not had any chest pain. She reports she has intermittent chest pain at baseline and follows with Dr. Kim. She has a history of CABG and PCI with her last cardiac procedure being PCI in 2013 and has subsequently been on aspirin and Plavix, but has had the Plavix held in the last week pending a hip injection. She reports she has not had any chest pain since developed in her cough and shortness of breath, and was "oh, definitely able to feel when I was having my heart attack ". She denies fever and chills this morning. She does not use tobacco products. Review of Systems Review of Systems: Constitutional: No fever/chills this morning Eyes: Denies vision change ENT: Denies ear pain, sore throat, sinus pain Cardiovascular: Denies Chest pain, chest pressure, palpitations. Endorses some weight gain and extremity swelling over the last week. Respiratory: See HPI Gastrointestinal: Denies abdominal pain, nausea, vomiting, constipation, diarrhea Genitourinary: Denies dysuria, urinary frequency Musculoskeletal: Denies acute focal weakness, Muscle aches Integumentary:Denies acute rash, lesions, bruising Neurological: Denies headache, numbness, tingling, focal weakness Physical Exam Physical Exam: General: A&Ox3. NAD. Cooperative. HEENT: Atraumatic, normocephalic. Pulm: Bibasilar crackles, right greater than left. Scattered mild wheezes, no rhonchi. Good air movement. Symmetrical chest rise. Cardiac: RRR, -mrg. Radial pulses intact and symmetrical. Abdominal: Nontender, nondistended, soft. BS present. Extremities: Pitting edema of the lower extremities left ankle bilaterally. No overlying warmth, erythema. Moving all extremities equally, sensation to soft touch intact in hands and feet. Results & Data Results & Data ([facility]) Vital Signs (Past 12 Hours) Vital Signs Temp Pulse Pulse Resp BP BP Pulse Ox 12/31/20 07:05 36.5 C 70 19 155/77 H 94 12/31/20 03:45 36.5 C 82 24 140/72 95 12/31/20 03:14 164 H 24 164/83 H 95 12/31/20 02:23 74 22 179/115 H 96 12/31/20 00:39 76 20 163/99 H 97 12/31/20 00:22 79 22 96 12/31/20 00:15 99 12/31/20 00:13 99 12/31/20 00:09 36.6 C 81 22 176/96 H 99 PG Care Time/CCT Total # of Minutes Spent Total Time Spent with Patient: Total time spent is greater than 50% in coordination of care (as documented) at patient's floor/unit and/or counseling patient: Coding Level of Care Code None Diagnoses Pneumonia J18.9 Congestive heart failure I50.9 Heart failure chronicity: unspecified Heart failure type: unspecified Diabetes mellitus with hyperglycemia E11.65 CKD (chronic kidney disease) stage 4, GFR 15-29 ml/min N18.4 CAD (coronary artery disease) I25.10 Hypertension I10 Hyperlipidemia E78.5 GERD (gastroesophageal reflux disease) K21.9 Troponin level elevated R77.8 (1) Congestive heart failure Heart failure chronicity: unspecified Heart failure type: unspecified Qualified Code(s): I50.9 - Heart failure, unspecified
[2020-12-31] MEDS ORDERED: HEPARIN SODIUM/DEXTROSE 25,000 UNITS/500 ML BAG IV SCH (08:30)
[2020-12-31] MEDS: INSULIN ASPART 100 UNITS/ML 3 ML PEN SC SCH ×4 (08:32→20:54)
[2020-12-31] MEDS: INSULIN GLARGINE SOLOSTAR 100 UNITS/ML 3 ML PEN SC SCH ×2 (08:33→20:57)
--- NOTE | 2020-12-31 08:38 | CT Scan Report ---
CT chest diagnostic wo con CT DOSE: 742.96 mGy.cm HISTORY: Shortness of breath. TECHNIQUE: Multiaxial CT images of the chest were performed without contrast. A dose lowering techni que was utilized adhering to the principles of ALARA. COMPARISON: Chest CT 06/13/2020. FINDINGS: No pneumothorax. Small bilateral pleural effusions. Scattered multifocal airspace opacities which have progressed in the interval. This most pronounced within the mid to lower lung zones. The heart remains mildly enlarged. The central airways are patent. There are poststernotomy changes. Part ially visualized cervical spinal fusion hardware is noted. Limited views of the upper abdomen demonst rate normal liver and spleen. There is a small hiatus hernia. Normal esophagus. No mediastinal or hil ar lymphadenopathy. Normal caliber thoracic aorta. IMPRESSION: 1. Multifocal scattered patchy airspace opacities likely representing a pneumonia. This could be due to a viral process. 2. Small bilateral pleural effusions. ACT 112: Negative or not required by law. Electronically signed by: Tung Grewal M.D. 12/31/2020 8:37 AM
[2020-12-31] MEDS ORDERED: CLOPIDOGREL BISULFATE 75 MG TAB PO SCH (09:00)
--- NOTE | 2020-12-31 10:16 | XRay Report ---
XR chest 1V portable HISTORY: Dyspnea COMPARISON: Chest 06/16/2020. FINDINGS: Interval development of multifocal bilateral airspace opacities consistent with a pneumonia . There are poststernotomy changes. The heart remains enlarged. No pneumothorax. Cervical spinal fusi on hardware is noted. Trace bilateral pleural effusions. IMPRESSION: Multifocal bilateral airspace opacities likely representing a viral pneumonia. ACT 112: Negative or not required by law. Electronically signed by: Tung Grewal M.D. 12/31/2020 10:14 AM
--- NOTE | 2020-12-31 11:52 | Electrocardiogram Report ---
Test Reason : Blood Pressure : / mmHG Vent. Rate : 080 BPM Atrial Rate : 080 BPM P-R Int : 194 ms QRS Dur : 152 ms QT Int : 456 ms P-R-T Axes : 048 -32 094 degrees QTc Int : 525 ms Normal sinus rhythm Left axis deviation Right bundle branch block with repolarization abnormality ST depression in Anterolateral leads , consider ischemia Abnormal ECG When compared with ECG of 15-JUN-2020 06:42, ST depression in Anterolateral leads more pronounced Confirmed by Jeancarlos Molina ([id number]) on 12/31/2020 11:52:31 AM Referred By: REFERRED SELF Confirmed By:Jeancarlos Molina
[2020-12-31] MEDS: traMADol HCL 50 MG TABLET PO PRN (12:09)
--- NOTE | 2020-12-31 12:09 | Electrocardiogram Report ---
Test Reason : Blood Pressure : / mmHG Vent. Rate : 076 BPM Atrial Rate : 076 BPM P-R Int : 182 ms QRS Dur : 162 ms QT Int : 474 ms P-R-T Axes : 072 -20 094 degrees QTc Int : 533 ms Normal sinus rhythm Right bundle branch block ST depression in Anterolateral leads , consider ischemia Abnormal ECG When compared with ECG of 31-DEC-2020 00:01, No significant change was found Confirmed by Jeancarlos Molina ([id number]) on 12/31/2020 12:09:33 PM Referred By: REFERRED SELF Confirmed By:Jeancarlos Molina
--- NOTE | 2020-12-31 13:20 | XCELERA ---
[id number]
[2020-12-31] MEDS: cefTRIAXone SODIUM 2,000 MG in DEXTROSE 5% 50 ML IV SCH (18:38)
[2020-12-31] MEDS: DOCUSATE SODIUM 100 MG CAP PO SCH (20:45)
[2020-12-31] MEDS: AZITHROMYCIN 250 MG in DEXTROSE 5% 250 ML IV SCH (20:47)
[2020-12-31] MEDS ORDERED: INSULIN GLARGINE SOLOSTAR 100 UNITS/ML 3 ML PEN SQ SCH (21:00)
[2021-01-01] MEDS: ALBUTEROL 0.083% NEBU SOLN 3 ML VIAL INH PRN (00:17)
[2021-01-01] MEDS: traMADol HCL 50 MG TABLET PO PRN ×3 (04:26→18:04)
[2021-01-01] MEDS: HEPARIN SOD 5,000 UNIT/0.5 ML VIAL SQ SCH ×3 (04:27→21:53)
[2021-01-01 06:01] LABS: Basophils # (auto) 0.02 K/uL (0-0.2); Basophils % (auto) 0.2 %; Eosinophils # (auto) 0.14 K/uL (0-0.5); Eosinophils % (auto) 1.5 %; Hematocrit (blood only) 27.7 % (37-47); Hemoglobin 9.3 g/dL (12.0-16.0); Immature Granulocytes # (auto) 0.04 K/uL (0.00-0.02); Immature Granulocytes % (auto) 0.4 %; Lymphocytes # (auto) 0.72 K/uL (1.2-3.4); Lymphocytes % (auto) 7.7 %; Mean Corpuscular Hemoglobin 30.9 pg (25-34); Mean Corpuscular Hgb Conc 33.6 g/dL (32-36); Mean Platelet Volume 10.9 fL (7.4-10.4); Monocytes # (auto) 0.88 K/uL (0.11-0.59); Monocytes % (auto) 9.5 %; Neutrophils % (auto) 80.7 %; Platelet Count 208 K/uL (130-400); RDW Coefficient of Variation 13.5 % (11.5-14.5); RDW Standard Deviation 45.4 fL (36.4-46.3); Red Blood Count 3.01 M/uL (4.2-5.4)
[2021-01-01 06:31] LABS: BUN Creatinine Ratio 31.4 (10-20); Creatinine Clr Calc Pharmacy 15.8 ml/min; Est GFR (African American) 15.6 ml/min; Est GFR (Non-African American) 13.5 ml/min; Potassium 3.6 mmol/L (3.5-5.1)
--- NOTE | 2021-01-01 07:04 | Hospitalist Progress Note ---
Date of Service January 01, 2021 Assessment & Plan (1) Pneumonia: Plan: 80yo female with multiple medical comorbidities presenting with SOB as well as productive cough, orthopnea, weight gain. Elevated WBC, CT findings concerning for infectious process. Covid-19 is negative Cough, shortness of breath 2/2 pneumonia with underlying CHF -Admit to PCU -Procal neg -BC ngtd -Supplemental O2 as needed to maintain saturations >92% -IV Ceftriaxone and Azithromycin for CAP coverage -Continue Albuterol PRN (2) Troponin level elevated: Plan: - Pt clinically asymptomatic, no chest pain at assessment - EKG on admission with lateral ST depressions - Troponin elevated from 0.258 to 5.420, downtrending on repeat - Repeat EKG with improvement in lateral ischemic changes, appears near prior baseline. - Discussed with cardiology. Likely demand in the setting of underlying cardiac disease with superimposed PNA. Will re-start plaavix (previously on hold pending ortho hip injection) and defer heparinization at this time. If develops symptoms of ACS or EKG worsens will initiate heparinization and consult. - TTE as noted in CHF (3) Congestive heart failure: Plan: - Patient with history of CHF. Dry weight estimated to be 200# - patient is >218# at present. Endorses worsening edema and orthopnea. - BNP elevated - Follows with Dr. Barlow, last seen 12/11/20 as well as Caridad Herrera in the Heart Failure clinic - Last echo with EF ~45%, moderace concentric LVH, grade II diastolic dysfunction, mild LA/RA dilation. Repeat TTE ef 60-65%, no wall motion abnormalities, - Continue PO Bumex. Cr slightly increased in the setting of acute illness, no tachycardia, will continue bumex at this time -Daily weights -Monitor I/Os -Continue home medications - Carvedilol, Hydralazine, Isosorbide moninitrate and spironolactone. (4) Diabetes mellitus with hyperglycemia: Plan: - Elevated blood sugar to 403 at admit. - History of severe hypoglycemia requiring hospitalization. - On admit B-HB present but no anion gap - Lantus 15u BID, ISS. - Goal blood sugar 140 - 180 while inpatient - CC diet as tolerated - Continue Reglan Blood sugars remained high this afternoon, carb ratio tightened and 1 dose of insulin regular 10 units given Pharmacy glycemic consult placed given patient's history of hypoglycemia and fluctuating requirements (5) CKD (chronic kidney disease) stage 4, GFR 15-29 ml/min: Plan: - Mild elevation in BUN and Cr from baseline. -Avoid nephrotoxic agents -Renal dosing where needed -Follow BUN, Cr, electrolytes and UOP Creatinine slightly increased today, patient clinically volume overloaded, continue Bumex (6) CAD (coronary artery disease): Plan: - Patient with longstanding history of CAD with stable angina. She follows with Dr. Barlow -Continue ASA -Plavix reportedly on hold as she is to have an injection soon in her hip. Restarted 2/2 elevated troponin per discussion with cardiology, continue until troponins down trended and patient no longer ill. Can reassess injection at that time -Continue Crestor -Continue Carvedilol -Opponent peaked, down trended (7) Hypertension: Plan: Blood pressure elevated -Continue home agents -Continue to monitor (8) Hyperlipidemia: Plan: Chronic -Continue Crestor (9) GERD (gastroesophageal reflux disease): Plan: Chronic -Continue Protonix Plan: In summary Treva is a 80-year-old female with a history of insulin-dependent diabetes with history of severe hypoglycemic episodes who admitted and being treated for acute pneumonia with additional CHF exacerbation. On admission her troponin was elevated and up trended, she was clinically without chest pain. Heparinization was deferred, troponin down trended and EKG depressions normalized with antibiotics and hydration. Currently continues to appear volume overloaded, continue antibiotics and careful diuresis as may be intravascularly depleted in the setting of infection. F/E/N - Diuresis with Bumex IV as above, monitor electrolytes and replete as needed, CC/Na restriction diet as toleated Ppx - Heparin Code - DNR/DNI per discussion with patient Dispo - admit to PCU Admission and Anticipated Discharge Date Admission Date: December 31, 2020 Beth Tilley is seen at the bedside this morning. She reports that she feels well, and "much better "than when she came in. She does not have any chest pain, chest pressure, palpitations, fevers, or chills today. She continues to endorse some shortness of breath with movement, intermittent cough productive for clear sputum Review of Systems Review of Systems: Constitutional: No fever/chills this morning Eyes: Denies vision change ENT: Denies ear pain, sore throat, sinus pain Cardiovascular: Denies Chest pain, chest pressure, palpitations. Endorses some weight gain, lower extremity swelling similar to prior Respiratory: See HPI Gastrointestinal: Denies abdominal pain, nausea, vomiting, constipation, diarrhea Genitourinary: Denies dysuria, urinary frequency Musculoskeletal: Denies acute focal weakness, Muscle aches Integumentary:Denies acute rash, lesions, bruising Neurological: Denies headache, numbness, tingling, focal weakness Physical Exam Physical Exam: General: A&Ox3. NAD. Cooperative. HEENT: Atraumatic, normocephalic. Pulm: Bibasilar crackles, right greater than left. No rhonchi, no wheezes on assessment this morning. Good air movement. Symmetrical chest rise. Cardiac: RRR, -mrg. Radial pulses intact and symmetrical. Abdominal: Nontender, nondistended, soft. BS present. Extremities: Pitting edema of the lower extremities bilaterally similar to prior. No overlying warmth, erythema. Moving all extremities equally, sensation to soft touch intact in hands and feet. Results & Data Results & Data ([facility]) Vital Signs (Past 12 Hours) Vital Signs Temp Pulse Resp BP Pulse Ox 01/01/21 04:00 36.8 C 82 19 162/85 H 94 01/01/21 00:17 80 18 91 12/31/20 23:34 36.8 C 78 20 136/63 91 12/31/20 19:49 36.5 C 85 19 175/91 H 93 PG Care Time/CCT Total # of Minutes Spent Total Time Spent with Patient: Total time spent is greater than 50% in coordination of care (as documented) at patient's floor/unit and/or counseling patient: Coding Level of Care Code 90648 Subseq Hosp Care Lvl 3 Diagnoses Pneumonia J18.9 Troponin level elevated R77.8 Congestive heart failure I50.9 Heart failure chronicity: unspecified Heart failure type: unspecified Diabetes mellitus with hyperglycemia E11.65 CKD (chronic kidney disease) stage 4, GFR 15-29 ml/min N18.4 CAD (coronary artery disease) I25.10 Hypertension I10 Hyperlipidemia E78.5 GERD (gastroesophageal reflux disease) K21.9 (1) Congestive heart failure Heart failure chronicity: unspecified Heart failure type: unspecified Qualified Code(s): I50.9 - Heart failure, unspecified
[2021-01-01] MEDS: PANTOprazole 40 MG TAB PO SCH (08:12)
[2021-01-01] MEDS: hydrALAZINE TAB 50 MG TAB PO SCH ×3 (08:13→21:52)
[2021-01-01] MEDS: SPIRONOLACTONE 25 MG TAB PO SCH (08:13)
[2021-01-01] MEDS: CLOPIDOGREL BISULFATE 75 MG TAB PO SCH (08:13)
[2021-01-01] MEDS: GABAPENTIN 100 MG CAP PO SCH ×3 (08:14→20:46)
[2021-01-01] MEDS: ISOSORBIDE MONO EXTENDED REL 60 MG TABCR PO SCH ×2 (08:14→20:47)
[2021-01-01] MEDS: ASPIRIN 81 MG ECTAB PO SCH (08:14)
[2021-01-01] MEDS: carvediloL 25 MG TAB PO SCH ×2 (08:14→20:46)
[2021-01-01] MEDS: METOCLOPRAMIDE HCL 5 MG TABLET PO SCH ×4 (08:14→20:46)
[2021-01-01] MEDS: BUMETANIDE 1 MG TAB PO SCH (08:15)
[2021-01-01] MEDS: amLODIPine BESYLATE 5 MG TAB PO SCH (08:15)
[2021-01-01] MEDS: INSULIN ASPART 100 UNITS/ML 3 ML PEN SC SCH ×4 (08:16→20:56)
[2021-01-01] MEDS: INSULIN GLARGINE SOLOSTAR 100 UNITS/ML 3 ML PEN SC SCH ×2 (08:17→20:57)
[2021-01-01] MEDS: cefTRIAXone SODIUM 2,000 MG in DEXTROSE 5% 50 ML IV SCH (17:22)
[2021-01-01] MEDS ORDERED: INSULIN HUMAN REGULAR PER UNIT 10 UNITS in SYRINGE 0 ML IV STA (20:00)
[2021-01-01] MEDS ORDERED: PHARMACY GLYCEMIC MGMT CONSULT PRN (20:04)
[2021-01-01] MEDS: AZITHROMYCIN 250 MG in DEXTROSE 5% 250 ML IV SCH (20:37)
[2021-01-01] MEDS: DOCUSATE SODIUM 100 MG CAP PO SCH (20:45)
--- NOTE | 2021-01-01 21:04 | Pharmacy Report ---
Pharmacy Glycemic Short Note 2 - Date of Service January 01, 2021 - Glycemic Short BSG Results (Last 24 hours): 01/01/21 01/01/21 01/01/21 05:47 07:12 11:20 Glucose 177 H POC Glucose 160 H 215 H 01/01/21 01/01/21 01/01/21 16:16 16:17 16:18 Glucose POC Glucose 314 H* 337 H* 340 H* 01/01/21 20:30 Glucose POC Glucose 230 H OUTPATIENT ANTIDIABETIC REGIMEN: * Basaglar 30 units SC HS * Novolog 13 units TIDM ASSESSMENT: * 80 yo F w hx severe hypoglycemia admitted 12/31 for hyperglycemia. Pharmacy consulted on 01/01 * Post-prandial BSG's significantly elevated >200 mg/dL for 5 of the last 6 checks. Will tighten CHO ratio. Will also slightly tighten correction factor * AM fasting BSG slightly above goal. Will increase Lantus slightly by 20% * One overnight check PLAN FOR INPATIENT GLYCEMIC CONTROL: * Hold outpatient oral diabetes medications * Basal insulin * Lantus 18 units SQ BID * Bolus insulin * NovoLog per scale ACHS or Q6hrs while NPO * Goal Range: Low 110 mg/dL - High 140 mg/dL * Correction Factor: 15 mg/dL/unit * Nutritional / Prandial insulin per carb ratio of 1 unit per 6 grams CHO consumed PLAN FOR DISCHARGE: * tbd
[2021-01-02] MEDS ORDERED: INSULIN ASPART 100 UNITS/ML 3 ML PEN SC ONE (02:00)
[2021-01-02] MEDS: HEPARIN SOD 5,000 UNIT/0.5 ML VIAL SQ SCH ×3 (05:43→20:59)
[2021-01-02 07:33] LABS: Estimated Average Glucose 169 mg/dl; Hemoglobin A1C 7.5 % (4.5-5.6)
[2021-01-02] MEDS: traMADol HCL 50 MG TABLET PO PRN ×2 (08:05→21:35)
[2021-01-02] MEDS: CLOPIDOGREL BISULFATE 75 MG TAB PO SCH (08:06)
[2021-01-02] MEDS: PANTOprazole 40 MG TAB PO SCH (08:06)
[2021-01-02] MEDS: METOCLOPRAMIDE HCL 5 MG TABLET PO SCH ×4 (08:06→20:08)
[2021-01-02] MEDS: carvediloL 25 MG TAB PO SCH ×2 (08:06→20:06)
[2021-01-02] MEDS: hydrALAZINE TAB 50 MG TAB PO SCH ×3 (08:06→20:06)
[2021-01-02] MEDS: ISOSORBIDE MONO EXTENDED REL 60 MG TABCR PO SCH ×2 (08:06→20:08)
[2021-01-02] MEDS: GABAPENTIN 100 MG CAP PO SCH ×3 (08:06→20:07)
[2021-01-02] MEDS: ASPIRIN 81 MG ECTAB PO SCH (08:07)
[2021-01-02] MEDS: INSULIN ASPART 100 UNITS/ML 3 ML PEN SC SCH ×4 (08:07→20:27)
[2021-01-02] MEDS: ROSUVASTATIN CALCIUM 5 MG TAB PO SCH (08:07)
[2021-01-02] MEDS: amLODIPine BESYLATE 5 MG TAB PO SCH (08:07)
[2021-01-02] MEDS: BUMETANIDE 1 MG TAB PO SCH (08:07)
[2021-01-02] MEDS: SPIRONOLACTONE 25 MG TAB PO SCH (08:08)
[2021-01-02] MEDS: INSULIN GLARGINE SOLOSTAR 100 UNITS/ML 3 ML PEN SC SCH ×2 (08:08→20:27)
--- NOTE | 2021-01-02 10:20 | Hospitalist Progress Note ---
Date of Service January 02, 2021 Assessment & Plan (1) Pneumonia: Plan: 80yo female with multiple medical comorbidities presenting with SOB as well as productive cough, orthopnea, weight gain. Elevated WBC, CT findings concerning for infectious process. Covid-19 is negative suspect viral pneumonia given findings on CT chest will complete 5 days of antibiotics only -Supplemental O2 as needed to maintain saturations >92% -Continue Albuterol PRN add flutter valve and incentive spirometer to get her expanding lungs PT/OT evaluations, she lives alone at home (2) Troponin level elevated: Plan: - Pt clinically asymptomatic, no chest pain at assessment - EKG on admission with lateral ST depressions - Troponin elevated from 0.258 to 5.420, downtrending on repeat - Repeat EKG with improvement in lateral ischemic changes, appears near prior baseline. - Discussed with cardiology. Likely demand in the setting of underlying cardiac disease with superimposed PNA. continue plavix (previously on hold pending ortho hip injection) - TTE as noted in CHF (3) Congestive heart failure: Plan: - Patient with history of CHF. Dry weight initially thought to be 200 but closer to 210-214lbs - BNP elevated - Follows with Dr. Barlow, last seen 12/11/20 as well as Caridad Herrera in the Heart Failure clinic - Last echo with EF ~45%, moderate concentric LVH, grade II diastolic dysfunction, mild LA/RA dilation. Repeat TTE ef 60-65%, no wall motion abnormalities, - Continue PO Bumex 4mg daily BMP tomorrow -Daily weights -Monitor I/Os -Continue home medications - Carvedilol, Hydralazine, Isosorbide mononitrate and spironolactone. (4) Diabetes mellitus with hyperglycemia: Plan: - Elevated blood sugar to 403 at admit. - On admit B-HB present but no anion gap - Lantus 15u BID, ISS. - Goal blood sugar 140 - 180 while inpatient - CC diet as tolerated - Continue Reglan Blood sugars remained high this afternoon, carb ratio tightened and 1 dose of insulin regular 10 units given Pharmacy glycemic consult placed given patient's history of hypoglycemia and f luctuating requirements sugars: 230 last night and 107 this morning, continue to monitor closely (5) CKD (chronic kidney disease) stage 4, GFR 15-29 ml/min: Plan: - Mild elevation in BUN and Cr from baseline on admission -Avoid nephrotoxic agents -Renal dosing where needed -Follow BUN, Cr, electrolytes and UOP Bumex daily check BMP tomorrow (6) CAD (coronary artery disease): Plan: - Patient with longstanding history of CAD with stable angina. She follows with Dr. Barlow -Continue ASA -Plavix reportedly on hold as she is to have an injection soon in her hip. Restarted 2/2 elevated troponin per discussion with cardiology, continue until troponins down trended and patient no longer ill. Can reassess injection at that time -Continue Crestor -Continue Carvedilol -Opponent peaked, down trended (7) Hypertension: Plan: Blood pressure elevated -Continue home agents -Continue to monitor (8) Hyperlipidemia: Plan: Chronic -Continue Crestor (9) GERD (gastroesophageal reflux disease): Plan: Chronic -Continue Protonix Plan: 5 days of antibiotics, wean oxygen as tolerated (ISB, flutter valve), labs in AM, PT/OT evaluations Ppx - Heparin Code - DNR/DNI per discussion with patient Dispo - continue PCU Admission and Anticipated Discharge Date Admission Date: December 31, 2020 Subjective patient doing reasonably well, says she feels better compared to time of admission we discussed the CT chest results, likely viral pneumonia, typically just suppor tive care, COVID negative she says she is making a normal amount of urine with her Bumex 4mg PO daily she says her baseline weight is NOT 200lbs, closer to 210-214lbs she has some edema in legs, gets better at night when laying down no fever/chills, no sweats, no diarrhea, no rash, no vomiting she lives alone, will get PT assessment to make sure she is strong enough to return home labs tomorrow Review of Systems Review of Systems: All systems reviewed & are unremarkable except as noted in Subjective Respiratory: + dyspnea and + dyspnea on exertion Cardiovascular: + edema; no chest pain Gastrointestinal: no abdominal pain, no nausea, no vomiting, no constipation and no diarrhea/loose stools Physical Exam Constitutional: well developed, + obese and comfortable; no acute distress Neck: trachea midline, no thyromegaly Respiratory: normal respiratory effort, lungs clear to auscultation Cardiovascular: Rate/Rhythm: regular rate and regular rhythm Heart Sounds: normal S1 and normal S2; no murmur Extremities: normal capillary refill and + edema (1+ bilaterally) Gastrointestinal (Abdomen): normal bowel sounds, soft, nontender, no hepatosplenomegaly Musculoskeletal: no cyanosis or clubbing, extremities motor strength 5/5 Skin: no rashes, warm and dry Neurologic: normal touch/pain/proprioception, CN's II-XI intact bilaterally, moves all extremities and awake; no focal motor deficits and not confused Psychiatric: A+Ox3, euthymic affect Results & Data Results & Data ([facility]) Vital Signs (Past 12 Hours) Vital Signs Temp Pulse Pulse Resp BP Pulse Ox 01/02/21 08:00 75 01/02/21 07:10 37.0 C 80 20 166/70 H 94 01/02/21 03:02 36.6 C 71 18 155/72 H 96 01/01/21 23:26 36.3 C L 70 18 153/70 H 97 Laboratory Results Laboratory Results - last 24 hr 01/01/21 01/01/21 01/01/21 05:47 11:20 16:16 POC Glucose 215 H 314 H* Estimat Average Glucose 169 Hemoglobin A1c 7.5 H 01/01/21 01/01/21 01/01/21 16:17 16:18 20:30 POC Glucose 337 H* 340 H* 230 H Estimat Average Glucose Hemoglobin A1c 01/02/21 01/02/21 02:13 07:10 POC Glucose 129 H 107 H Estimat Average Glucose Hemoglobin A1c Medications Administered Current Inpatient Medications Acetaminophen (Acetaminophen 325 Mg Tab) 650 mg PO Q4H PRN PRN Reason: Pain or Fever Stop: 01/30/21 04:32 Albuterol (Albuterol 0.083% Nebu Soln 3 Ml Vial) 2.5 mg INH Q4H PRN PRN Reason: Shortness Of Breath Stop: 01/30/21 04:32 Last Admin: 01/01/21 00:17 Dose: 2.5 mg Documented by: Amlodipine Besylate (Amlodipine Besylate 5 Mg Tab) [facility] Stop: 01/30/21 08:59 Last Admin: 01/02/21 08:07 Dose: 5 mg Documented by: Aspirin (Aspirin 81 Mg Ectab) 81 [facility] Stop: 01/30/21 08:59 Last Admin: 01/02/21 08:07 Dose: 81 mg Documented by: Bumetanide (Bumetanide 1 Mg Tab) 4 mg PO DAILY [facility] Stop: 01/30/21 08:59 Last Admin: 01/02/21 08:07 Dose: 4 mg Documented by: Carvedilol (Carvedilol 25 Mg Tab) 25 mg PO BID [facility] Stop: 01/30/21 08:59 Last Admin: 01/02/21 08:06 Dose: 25 mg Documented by: Clopidogrel Bisulfate (Clopidogrel Bisulfate 75 Mg Tab) 75 mg PO QAM [facility] Stop: 01/31/21 08:59 Last Admin: 01/02/21 08:06 Dose: 75 mg Documented by: Dextrose (Dextrose 50% 50 Ml Syringe) 25 - 50 ml IV UD PRN; Protocol PRN Reason: Hypoglycemia Protocol Stop: 01/30/21 04:32 Docusate Sodium (Docusate Sodium 100 Mg Cap) 100 mg PO HS [facility] Stop: 01/30/21 20:59 Last Admin: 01/01/21 20:45 Dose: 100 mg Documented by: Gabapentin (Gabapentin 100 Mg Cap) 100 mg PO TID [facility] Stop: 01/30/21 08:59 Last Admin: 01/02/21 08:06 Dose: 100 mg Documented by: Glucagon (Glucagon For Inj 1 Mg Vial) 1 mg SQ UD PRN; Protocol PRN Reason: Hypoglycemia Protocol Stop: 01/30/21 04:32 Glucose (Glucose 10 Tabs/Tube) 4 - 8 tabs PO UD PRN; Protocol PRN Reason: Hypoglycemia Protocol Stop: 01/30/21 04:32 Glucose (Glucose 40% Gel 15 Gm Tube) 15 - 30 gm PO UD PRN; Protocol PRN Reason: Hypoglycemia Protocol Stop: 01/30/21 04:32 Heparin Sodium (Porcine) (Heparin Sod 5,000 Unit/0.5 Ml Vial) 7,500 units SQ Q8 [facility] Stop: 01/30/21 05:59 Last Admin: 01/02/21 05:43 Dose: 7,500 units Documented by: Hydralazine HCl (Hydralazine Tab 50 Mg Tab) 100 mg PO TID [facility] Stop: 01/30/21 08:59 Last Admin: 01/02/21 08:06 Dose: 100 mg Documented by: Azithromycin 250 mg/ Dextrose 252.5 mls @ 125 mls/hr IV Q24H [facility] Stop: 01/07/21 19:59 Last Infusion: 01/01/21 22:43 Dose: Infused Documented by: Ceftriaxone Sodium 2,000 mg/ (Dextrose) 70 mls @ 100 mls/hr IV Q24H [facility]; Protocol Stop: 01/07/21 17:59 Last Infusion: 01/01/21 18:08 Dose: Infused Documented by: Insulin Aspart (Insulin Aspart 100 Units/Ml 3 Ml Pen) 0 units SC [facility]; Protocol Stop: 01/30/21 07:29 Last Admin: 01/02/21 08:07 Dose: 8 units Documented by: Insulin Glargine (Insulin Glargine Solostar 100 Units/Ml 3 Ml Pen) 18 units SC BID [facility]; Protocol Stop: 01/31/21 20:59 Last Admin: 01/02/21 08:08 Dose: 18 units Documented by: Isosorbide Mononitrate (Isosorbide [place] Extended Rel 60 Mg Tabcr) 120 mg PO BID [facility] Stop: 01/30/21 08:59 Last Admin: 01/02/21 08:06 Dose: 120 mg Documented by: Metoclopramide HCl (Metoclopramide Hcl 5 Mg Tablet) 5 mg PO [facility] Stop: 01/30/21 07:29 Last Admin: 01/02/21 08:06 Dose: 5 mg Documented by: Miscellaneous (Carbohydrates For Hypoglycemia ) 15 - 30 gm PO UD PRN PRN Reason: Hypoglycemia Protocol Stop: 01/30/21 04:32 Miscellaneous Information (Pharmacy Glycemic Mgmt Consult) 1 ea N/A UD PRN PRN Reason: Consult Stop: 01/31/21 20:03 Ondansetron HCl (Ondansetron Inj 2 Mg/Ml 2 Ml Vial) 4 mg IV Q6H PRN PRN Reason: Nausea Stop: 01/30/21 04:32 Pantoprazole Sodium (Pantoprazole 40 Mg Tab) 40 mg PO DAILY [facility] Stop: 01/30/21 08:59 Last Admin: 01/02/21 08:06 Dose: 40 mg Documented by: Rosuvastatin Calcium (Rosuvastatin Calcium 5 Mg Tab) 5 mg PO MoTh@0900 [facility] Stop: 02/01/21 08:59 Last Admin: 01/02/21 08:07 Dose: 5 mg Documented by: Spironolactone (Spironolactone 25 Mg Tab) 50 mg PO QAM [facility] Stop: 01/30/21 08:59 Last Admin: 01/02/21 08:08 Dose: 50 mg Documented by: Tramadol HCl (Tramadol Hcl 50 Mg Tablet) 50 - 100 mg PO BID PRN PRN Reason: Pain Stop: 01/30/21 04:32 Last Admin: 01/02/21 08:05 Dose: 50 mg Documented by: PG Care Time/CCT Total # of Minutes Spent Total Time Spent with Patient: Total time spent is greater than 50% in coordination of care (as documented) at patient's floor/unit and/or counseling patient: Coding Level of Care Code 77270 Subseq Hosp Care Lvl 3 Diagnoses Pneumonia J18.9 Troponin level elevated R77.8 Congestive heart failure I50.9 Heart failure chronicity: unspecified Heart failure type: unspecified Diabetes mellitus with hyperglycemia E11.65 CKD (chronic kidney disease) stage 4, GFR 15-29 ml/min N18.4 CAD (coronary artery disease) I25.10 Hypertension I10 Hyperlipidemia E78.5 GERD (gastroesophageal reflux disease) K21.9 (1) Congestive heart failure Heart failure chronicity: unspecified Heart failure type: unspecified Quali fied Code(s): I50.9 - Heart failure, unspecified
--- NOTE | 2021-01-02 11:16 | Pharmacy Report ---
Pharmacy Glycemic Short Note 2 - Date of Service January 02, 2021 - Glycemic Short BSG Results (Last 24 hours): 01/01/21 01/01/21 01/01/21 11:20 16:16 16:17 POC Glucose 215 H 314 H* 337 H* 01/01/21 01/01/21 01/02/21 16:18 20:30 02:13 POC Glucose 340 H* 230 H 129 H 01/02/21 01/02/21 07:10 11:04 POC Glucose 107 H 198 H OUTPATIENT ANTIDIABETIC REGIMEN: * Basaglar 30 units SC HS * Novolog 13 units TIDM ASSESSMENT: 01/02 * Patient received total of 70 units of insulin yesterday, of which 33 units were basal insulin * Fasting BSG 107 mg/dL - plan to continue same basal insulin * Continue same CF/CR 01/01 * 80 yo F w hx severe hypoglycemia admitted 12/31 for hyperglycemia. Pharmacy consulted on 01/01 * Post-prandial BSG's significantly elevated >200 mg/dL for 5 of the last 6 checks. Will tighten CHO ratio. Will also slightly tighten correction factor * AM fasting BSG slightly above goal. Will increase Lantus slightly by 20% * One overnight check PLAN FOR INPATIENT GLYCEMIC CONTROL: * Hold outpatient oral diabetes medications * Basal insulin * Lantus 18 units SQ BID * Bolus insulin * NovoLog per scale ACHS or Q6hrs while NPO * Goal Range: Low 110 mg/dL - High 140 mg/dL * Correction Factor: 15 mg/dL/unit * Nutritional / Prandial insulin per carb ratio of 1 unit per 6 grams CHO consumed PLAN FOR DISCHARGE: * A1C 7.5% - goal <8% is reasonable for patient * Would recommend continuation of home basaglar/novolog as long as patient is not experiencing frequent hypoglycemia
[2021-01-02] MEDS: cefTRIAXone SODIUM 2,000 MG in DEXTROSE 5% 50 ML IV SCH (17:09)
[2021-01-02] MEDS ORDERED: hydrALAZINE HCL 20 MG/ML VIAL IV STA (18:55)
[2021-01-02] MEDS: hydrALAZINE HCL 20 MG/ML VIAL ONE ×2 (18:57→19:03)
[2021-01-02] MEDS: AZITHROMYCIN 250 MG in DEXTROSE 5% 250 ML IV SCH (20:06)
[2021-01-02] MEDS: DOCUSATE SODIUM 100 MG CAP PO SCH (20:07)
[2021-01-03] MEDS: HEPARIN SOD 5,000 UNIT/0.5 ML VIAL SQ SCH ×3 (06:35→21:09)
[2021-01-03 06:55] LABS: Hemoglobin 9.3 g/dL (12.0-16.0); Mean Corpuscular Hemoglobin 30.6 pg (25-34); Mean Corpuscular Hgb Conc 33.2 g/dL (32-36); Mean Corpuscular Volume 92.1 fL (80-100); Mean Platelet Volume 10.8 fL (7.4-10.4); Platelet Count 248 K/uL (130-400); RDW Coefficient of Variation 13.6 % (11.5-14.5); RDW Standard Deviation 45.7 fL (36.4-46.3); Red Blood Count 3.04 M/uL (4.2-5.4); White Blood Count 9.17 K/uL (4.8-10.8)
[2021-01-03 07:41] LABS: Albumin Level 2.6 gm/dl (3.4-5.0); BUN Creatinine Ratio 30.3 (10-20); Calcium 8.8 mg/dl (8.5-10.1); Creatinine Clr Calc Pharmacy 14.3 ml/min; Est GFR (African American) 13.8 ml/min; Est GFR (Non-African American) 11.9 ml/min; Magnesium 2.6 mg/dl (1.8-2.4); Potassium 3.7 mmol/L (3.5-5.1)
[2021-01-03 07:43] LABS: Albumin Globulin Ratio 0.7 (0.9-2); Bilirubin,Total 0.3 mg/dl (0.2-1); C Reactive Protein 6.89 mg/dl (0-0.29); Globulin 3.8 gm/dl (2.5-4.0); Total Protein 6.4 gm/dl (6.4-8.2)
[2021-01-03] MEDS: INSULIN ASPART 100 UNITS/ML 3 ML PEN SC SCH ×4 (08:39→21:11)
[2021-01-03] MEDS: ISOSORBIDE MONO EXTENDED REL 60 MG TABCR PO SCH ×2 (08:43→21:09)
[2021-01-03] MEDS: CLOPIDOGREL BISULFATE 75 MG TAB PO SCH (08:43)
[2021-01-03] MEDS: carvediloL 25 MG TAB PO SCH ×2 (08:44→21:09)
[2021-01-03] MEDS: PANTOprazole 40 MG TAB PO SCH (08:44)
[2021-01-03] MEDS: SPIRONOLACTONE 25 MG TAB PO SCH (08:44)
[2021-01-03] MEDS: hydrALAZINE TAB 50 MG TAB PO SCH ×3 (08:44→21:08)
[2021-01-03] MEDS: METOCLOPRAMIDE HCL 5 MG TABLET PO SCH ×4 (08:44→21:09)
[2021-01-03] MEDS: GABAPENTIN 100 MG CAP PO SCH ×3 (08:45→21:09)
[2021-01-03] MEDS: amLODIPine BESYLATE 5 MG TAB PO SCH (08:45)
[2021-01-03] MEDS: INSULIN GLARGINE SOLOSTAR 100 UNITS/ML 3 ML PEN SC SCH ×2 (08:46→21:10)
--- NOTE | 2021-01-03 10:53 | Hospitalist Progress Note ---
Date of Service January 03, 2021 Assessment & Plan (1) Pneumonia: Plan: 80yo female with multiple medical comorbidities presenting with SOB as well as productive cough, orthopnea, weight gain. Elevated WBC, CT findings concerning for infectious process. Covid-19 is negative suspect viral pneumonia given findings on CT chest will complete 5 days of antibiotics only, today is day 4 -Supplemental O2 as needed to maintain saturations >92%, on 3L today -Continue Albuterol PRN add flutter valve and incentive spirometer to get her expanding lungs PT/OT evaluations, she lives alone at home (2) Troponin level elevated: Plan: - Pt clinically asymptomatic, no chest pain at assessment - EKG on admission with lateral ST depressions - Troponin elevated from 0.258 to 5.420, downtrending on repeat - Repeat EKG with improvement in lateral ischemic changes, appears near prior baseline. - Discussed with cardiology. Likely demand in the setting of underlying cardiac disease with superimposed PNA. continue plavix (previously on hold pending ortho hip injection) - TTE as noted in CHF (3) Congestive heart failure: Plan: - Patient with history of CHF. Dry weight initially thought to be 200 but closer to 210-214lbs - BNP elevated - Follows with Dr. Barlow, last seen 12/11/20 as well as Caridad Herrera in the Heart Failure clinic - Last echo with EF ~45%, moderate concentric LVH, grade II diastolic dysfunction, mild LA/RA dilation. Repeat TTE ef 60-65%, no wall motion abnormalities, - HOLD PO Bumex 4mg daily as she is euvolemic and Cr up to 3.4, BUN 105 BMP daily -Daily weights -Monitor I/Os -Continue home medications - Carvedilol, Hydralazine, Isosorbide mononitrate, hold Spironolactone (4) Diabetes mellitus with hyperglycemia: Plan: - Elevated blood sugar to 403 at admit. - On admit B-HB present but no anion gap - Lantus 15u BID, ISS. - Goal blood sugar 140 - 180 while inpatient - CC diet as tolerated - Continue Reglan Pharmacy glycemic consult placed given patient's history of hypoglycemia and fluctuating requirements sugars: stable today (5) CKD (chronic kidney disease) stage 4, GFR 15-29 ml/min: Plan: Acute kidney injury on CKD stage 4 - BUN up to 105, Cr up to 3.4, hold Bumex and spironolactone -Avoid nephrotoxic agents -Renal dosing where needed check BMP tomorrow (6) CAD (coronary artery disease): Plan: - Patient with longstanding history of CAD with stable angina. She follows with Dr. Barlow -Continue ASA -Plavix reportedly on hold as she is to have an injection soon in her hip. Restarted 2/2 elevated troponin per discussion with cardiology, continue until troponins down trended and patient no longer ill. Can reassess injection at that time -Continue Crestor -Continue Carvedilol -Opponent peaked, down trended (7) Hypertension: Plan: Blood pressure elevated increase Norvasc to 10mg, continue other home meds -Continue to monitor (8) Hyperlipidemia: Plan: Chronic -Continue Crestor (9) GERD (gastroesophageal reflux disease): Plan: Chronic -Continue Protonix Plan: 5 days of antibiotics, wean oxygen as tolerated (ISB, flutter valve), labs in AM, PT/OT evaluations Ppx - Heparin Code - DNR/DNI per discussion with patient Dispo - continue PCU Admission and Anticipated Discharge Date Admission Date: December 31, 2020 Subjective patient says she feels a little more short of breath today, not quite as good as yesterday reviewed labs, Cr climbing up to 3.4, will hold Bumex today, examines euvolemic discussed that with viral pneumonia typical treatment is supportive care, oxygen she is eating okay, not great no fever/chills, no nausea/vomiting, she had a BM yesterday no chest pain, no abdominal pain Review of Systems Review of Systems: All systems reviewed & are unremarkable except as noted in Subjective Constitutional: + fatigue and + weakness; no fever Respiratory: + dyspnea and + dyspnea on exertion; no cough Cardiovascular: no chest pain and no edema Gastrointestinal: no abdominal pain, no nausea and no vomiting Physical Exam Constitutional: well developed, + obese and comfortable; no acute distress Neck: trachea midline, no thyromegaly Respiratory: normal respiratory effort, lungs clear to auscultation Cardiovascular: Rate/Rhythm: regular rate and regular rhythm Heart Sounds: normal S1 and normal S2; no murmur Extremities: normal capillary refill; no edema Gastrointestinal (Abdomen): normal bowel sounds, soft, nontender, no hepatosplenomegaly Musculoskeletal: no cyanosis or clubbing, extremities motor strength 5/5 Skin: no rashes, warm and dry Neurologic: normal touch/pain/proprioception, CN's II-XI intact bilaterally, moves all extremities and awake; no focal motor deficits and not confused Psychiatric: A+Ox3, euthymic affect Results & Data Results & Data ([facility]) Vital Signs (Past 12 Hours) Vital Signs Temp Pulse Pulse Pulse Resp BP BP 01/03/21 10:21 01/03/21 08:00 84 01/03/21 07:23 36.8 C 79 22 162/92 H 01/03/21 03:52 36.6 C 81 20 152/72 H 01/02/21 23:40 36.5 C 83 20 130/52 L Pulse Ox 01/03/21 10:21 93 01/03/21 08:00 01/03/21 07:23 93 01/03/21 03:52 95 01/02/21 23:40 92 Laboratory Results Laboratory Results - last 24 hr 01/02/21 01/02/21 01/02/21 11:04 16:44 20:20 WBC RBC Hgb Hct MCV MCH MCHC RDW Std Deviation RDW Coeff of Duy Plt Count MPV Sodium Potassium Chloride Carbon Dioxide Anion Gap BUN Creatinine Est Cr Clr Drug Dosing Est GFR ( Amer) Est GFR (Non-Af Amer) BUN/Creatinine Ratio Glucose POC Glucose 198 H 109 H 167 H Calcium Magnesium Total Bilirubin AST ALT Alkaline Phosphatase C-Reactive Protein Total Protein Albumin Globulin Albumin/Globulin Ratio 01/03/21 01/03/21 01/03/21 06:19 06:19 07:05 WBC 9.17 RBC 3.04 L Hgb 9.3 L Hct 28.0 L MCV 92.1 MCH 30.6 MCHC 33.2 RDW Std Deviation 45.7 RDW Coeff of Duy 13.6 Plt Count 248 MPV 10.8 H Sodium 133 L Potassium 3.7 Chloride 98 Carbon Dioxide 26 Anion Gap 9.0 BUN 105 H Creatinine 3.46 H Est Cr Clr Drug Dosing 14.3 Est GFR ( Amer) 13.8 Est GFR (Non-Af Amer) 11.9 BUN/Creatinine Ratio 30.3 H Glucose 112 H POC Glucose 120 H Calcium 8.8 Magnesium 2.6 H Total Bilirubin 0.3 AST 18 ALT 24 Alkaline Phosphatase 32 L C-Reactive Protein 6.89 H Total Protein 6.4 Albumin 2.6 L Globulin 3.8 Albumin/Globulin Ratio 0.7 L Medications Administered Current Inpatient Medications Acetaminophen (Acetaminophen 325 Mg Tab) 650 mg PO Q4H PRN PRN Reason: Pain or Fever Stop: 01/30/21 04:32 Albuterol (Albuterol 0.083% Nebu Soln 3 Ml Vial) 2.5 mg INH Q4H PRN PRN Reason: Shortness Of Breath Stop: 01/30/21 04:32 Last Admin: 01/01/21 00:17 Dose: 2.5 mg Documented by: Amlodipine Besylate (Amlodipine Besylate 5 Mg Tab) 10 mg PO QAM [facility] Stop: 02/03/21 08:59 Aspirin (Aspirin 81 Mg Ectab) 81 mg PO QAM [facility] Stop: 01/30/21 08:59 Last Admin: 01/02/21 08:07 Dose: 81 mg Documented by: Bumetanide (Bumetanide 1 Mg Tab) 4 mg PO DAILY [facility] Stop: 01/30/21 08:59 Last Admin: 01/02/21 08:07 Dose: 4 mg Documented by: Carvedilol (Carvedilol 25 Mg Tab) 25 mg PO BID [facility] Stop: 01/30/21 08:59 Last Admin: 01/03/21 08:44 Dose: 25 mg Documented by: Clopidogrel Bisulfate (Clopidogrel Bisulfate 75 Mg Tab) 75 mg PO QAM [facility] Stop: 01/31/21 08:59 Last Admin: 01/03/21 08:43 Dose: 75 mg Documented by: Dextrose (Dextrose 50% 50 Ml Syringe) 25 - 50 ml IV UD PRN; Protocol PRN Reason: Hypoglycemia Protocol Stop: 01/30/21 04:32 Docusate Sodium (Docusate Sodium 100 Mg Cap) 100 mg PO HS [facility] Stop: 01/30/21 20:59 Last Admin: 01/02/21 20:07 Dose: Not Given Documented by: Gabapentin (Gabapentin 100 Mg Cap) 100 mg PO TID [facility] Stop: 01/30/21 08:59 Last Admin: 01/03/21 08:45 Dose: 100 mg Documented by: Glucagon (Glucagon For Inj 1 Mg Vial) 1 mg SQ UD PRN; Protocol PRN Reason: Hypoglycemia Protocol Stop: 01/30/21 04:32 Glucose (Glucose 10 Tabs/Tube) 4 - 8 tabs PO UD PRN; Protocol PRN Reason: Hypoglycemia Protocol Stop: 01/30/21 04:32 Glucose (Glucose 40% Gel 15 Gm Tube) 15 - 30 gm PO UD PRN; Protocol PRN Reason: Hypoglycemia Protocol Stop: 01/30/21 04:32 Heparin Sodium (Porcine) (Heparin Sod 5,000 Unit/0.5 Ml Vial) 7,500 units SQ Q8 [facility] Stop: 01/30/21 05:59 Last Admin: 01/03/21 06:35 Dose: 7,500 units Documented by: Hydralazine HCl (Hydralazine Tab 50 Mg Tab) 100 mg PO TID [facility] Stop: 01/30/21 08:59 Last Admin: 01/03/21 08:44 Dose: 100 mg Documented by: Azithromycin 250 mg/ Dextrose 252.5 mls @ 125 mls/hr IV Q24H [facility] Stop: 01/07/21 19:59 Last Infusion: 01/02/21 22:47 Dose: Infused Documented by: Ceftriaxone Sodium 2,000 mg/ (Dextrose) 70 mls @ 100 mls/hr IV Q24H [facility]; Protocol Stop: 01/07/21 17:59 Last Infusion: 01/02/21 18:03 Dose: Infused Documented by: Insulin Aspart (Insulin Aspart 100 Units/Ml 3 Ml Pen) 0 units SC ACHS [facility]; Protocol Stop: 01/30/21 07:29 Last Admin: 01/03/21 08:39 Dose: 5 units Documented by: Insulin Glargine (Insulin Glargine Solostar 100 Units/Ml 3 Ml Pen) 18 units SC QAM [facility]; Protocol Stop: 02/02/21 08:59 Last Admin: 01/03/21 08:46 Dose: 18 units Documented by: Insulin Glargine (Insulin Glargine Solostar 100 Units/Ml 3 Ml Pen) 15 units SC QPM [facility]; Protocol Stop: 02/01/21 20:59 Last Admin: 01/02/21 20:27 Dose: 15 units Documented by: Isosorbide Mononitrate (Isosorbide [place] Extended Rel 60 Mg Tabcr) 120 mg PO BID [facility] Stop: 01/30/21 08:59 Last Admin: 01/03/21 08:43 Dose: 120 mg Documented by: Metoclopramide HCl (Metoclopramide Hcl 5 Mg Tablet) 5 mg PO ACHS [facility] Stop: 01/30/21 07:29 Last Admin: 01/03/21 08:44 Dose: 5 mg Documented by: Miscellaneous (Carbohydrates For Hypoglycemia ) 15 - 30 gm PO UD PRN PRN Reason: Hypoglycemia Protocol Stop: 01/30/21 04:32 Miscellaneous Information (Pharmacy Glycemic Mgmt Consult) 1 ea N/A UD PRN PRN Reason: Consult Stop: 01/31/21 20:03 Ondansetron HCl (Ondansetron Inj 2 Mg/Ml 2 Ml Vial) 4 mg IV Q6H PRN PRN Reason: Nausea Stop: 01/30/21 04:32 Pantoprazole Sodium (Pantoprazole 40 Mg Tab) 40 mg PO DAILY [facility] Stop: 01/30/21 08:59 Last Admin: 01/03/21 08:44 Dose: 40 mg Documented by: Rosuvastatin Calcium (Rosuvastatin Calcium 5 Mg Tab) 5 mg PO MoTh@0900 [facility] Stop: 02/01/21 08:59 Last Admin: 01/02/21 08:07 Dose: 5 mg Documented by: Spironolactone (Spironolactone 25 Mg Tab) 50 mg PO QAM [facility] Stop: 01/30/21 08:59 Last Admin: 01/03/21 08:44 Dose: 50 mg Documented by: Tramadol HCl (Tramadol Hcl 50 Mg Tablet) 50 - 100 mg PO BID PRN PRN Reason: Pain Stop: 01/30/21 04:32 Last Admin: 01/02/21 21:35 Dose: 50 mg Documented by: PG Care Time/CCT Total # of Minutes Spent Total Time Spent with Patient: Total time spent is greater than 50% in coordination of care (as documented) at patient's floor/unit and/or counseling patient: Coding Level of Care Code 35256 Subseq Hosp Care Lvl 3 Diagnoses Pneumonia J18.9 Troponin level elevated R77.8 Congestive heart failure I50.9 Heart failure chronicity: unspecified Heart failure type: unspecified Diabetes mellitus with hyperglycemia E11.65 CKD (chronic kidney disease) stage 4, GFR 15-29 ml/min N18.4 CAD (coronary artery disease) I25.10 Hypertension I10 Hyperlipidemia E78.5 GERD (gastroesophageal reflux disease) K21.9 (1) Congestive heart failure Heart failure chronicity: unspecified Heart failure type: unspecified Qualified Code(s): I50.9 - Heart failure, unspecified
[2021-01-03] MEDS: ASPIRIN 81 MG ECTAB PO SCH (11:45)
[2021-01-03] MEDS ORDERED: amLODIPine BESYLATE 5 MG TAB PO ONE (12:45)
[2021-01-03] MEDS: ALBUTEROL 0.083% NEBU SOLN 3 ML VIAL INH PRN ×3 (13:38→23:39)
[2021-01-03] MEDS: cefTRIAXone SODIUM 2,000 MG in DEXTROSE 5% 50 ML IV SCH (18:01)
[2021-01-03] MEDS: DOCUSATE SODIUM 100 MG CAP PO SCH (21:08)
[2021-01-03] MEDS: AZITHROMYCIN 250 MG in DEXTROSE 5% 250 ML IV SCH (21:17)
[2021-01-03] MEDS ORDERED: NYSTATIN POWDER 15GM BTL EXT PRN (21:46)
[2021-01-03] MEDS ORDERED: PIPERACILL/TAZOBAC CONSULT ACTIVE PRN (23:55)
[2021-01-04] MEDS ORDERED: methylPREDNISolone 125 MG in SYRINGE 0 ML IV ONE (00:15)
[2021-01-04] MEDS ORDERED: PIPERACILLIN/TAZOBACTAM 4.5 GM in DEXTROSE 5% 100 ML IV ONE (00:15)
[2021-01-04] MEDS: ALBUT/IPRATROP 3MG/0.5MG NEB 3 ML VIAL NEB PRN (00:35)
[2021-01-04] MEDS: ALBUTEROL 0.083% NEBU SOLN 3 ML VIAL INH SCH ×5 (00:35→15:44)
[2021-01-04] MEDS ORDERED: FUROSEMIDE 80 MG in SYRINGE 0 ML IV ONE (00:39)
--- NOTE | 2021-01-04 00:47 | Communication Note ---
Date of Service: January 04, 2021 Made aware of patient's increased oxygen requirement from 3 to 5 to 10L oxymask this evening. Repeat CXR ordered. On evaluation of CXR, worsened pneumonia now obscuring whole right side despite being on antibiotics for CAP. Concern for postobstructive process, aggressive HAP bacterial, or underlying fungal pneumonia superimposed on viral pneumonia. - Ordered 125 mg IV methylpred x1 with 60 mg Q8h to follow. - Broadened abx from ceftriaxone to zosyn and caspofungin. - repeat [employer] COVID and MRSA nares. - duonebs scheduled, with Q2H prn. - ABG ordered and placed on bipap. CBC with diff in AM. - one time dose of 80mg IV lasix Given large volume of peripheral edema + patient's bumex being held and subsequent rise in creatinine - Pulm consult in AM. consider CT Chest wo con if patient able to lay flat. Discussed case with Dr. Moreno and Truman Collins PA-C about progression of care. Appears to be doing better sitting up in chair and on bipap, which should help an underlying element of diastolic failure. Lower concern for bacteremia given afebrile/normotensive. Most likely Pseudomonas vs. Fungal pneumonia. Would benefit from bronch with washings for culture. Will continue to monitor on PCU at this time.
[2021-01-04 00:54] LABS: iSTAT Art Bld Gas pCO2 Correct 46 mmHg (35-46); iSTAT Art Bld Gas pH Corrected 7.397 (7.35-7.45); iSTAT Arterial Blood Gas HCO3 28 meg/L (19-24); iSTAT Arterial Blood Gas pCO2 46 mmHg (35-46); iSTAT Arterial Blood Gas pO2 86 mmHg (80-95); iSTAT Arterial Blood Gas pO2 C 86; iSTAT Carbon Dioxide 30 mmol/L (24-31); iSTAT FiO2 40 %; iSTAT Hematocrit 27 % (37-47); iSTAT Hemoglobin 9.2 g/dl (12.0-16.0); iSTAT Potassium 3.8 mmol/L (3.3-5.0); iSTAT Site R Brachial; iSTAT Sodium 132 mmol/L (135-144)
[2021-01-04] MEDS ORDERED: methylPREDNISolone 60 MG in SYRINGE 0 ML IV SCH (06:00)
[2021-01-04 06:29] LABS: Basophils # (auto) 0.01 K/uL (0-0.2); Basophils % (auto) 0.1 %; Eosinophils # (auto) 0.02 K/uL (0-0.5); Eosinophils % (auto) 0.2 %; Hematocrit (blood only) 29.5 % (37-47); Hemoglobin 9.5 g/dL (12.0-16.0); Immature Granulocytes # (auto) 0.03 K/uL (0.00-0.02); Immature Granulocytes % (auto) 0.3 %; Lymphocytes % (auto) 4.5 %; Mean Corpuscular Hgb Conc 32.2 g/dL (32-36); Mean Corpuscular Volume 93.1 fL (80-100); Mean Platelet Volume 10.9 fL (7.4-10.4); Monocytes # (auto) 0.11 K/uL (0.11-0.59); Monocytes % (auto) 1.2 %; Neutrophils # (auto) 8.26 K/uL (1.4-6.5); Neutrophils % (auto) 93.7 %; Platelet Count 259 K/uL (130-400); RDW Coefficient of Variation 13.7 % (11.5-14.5); RDW Standard Deviation 46.6 fL (36.4-46.3); Red Blood Count 3.17 M/uL (4.2-5.4); White Blood Count 8.83 K/uL (4.8-10.8)
[2021-01-04] MEDS ORDERED: PIPERACILLIN/TAZOBACTAM 4.5 GM in DEXTROSE 5% 100 ML IV SCH (08:00)
--- NOTE | 2021-01-04 08:01 | XRay Report ---
SINGLE VIEW CHEST CLINICAL HISTORY: Hypoxia. FINDINGS: 2 AP, portable, upright chest radiographs are compared to chest x-ray and chest CT dated . The patient is status post midline sternotomy. The heart is enlarged noting atherosclerotic calcification of the thoracic aorta. Confluent airspace consolidation throughout both lungs has incre ased as compared 12/31/2020. Small pleural effusions are noted. No pneumothorax is seen. The skeletal structures are osteopenic. The bony thorax is grossly intact. Fusion hardware is noted in the lower c ervical spine. Surgical clips are noted in the left lower neck. IMPRESSION: 1. There is increasingly confluent multifocal airspace consolidation throughout both lungs. 2. Cardiomegaly and small pleural effusions. ACT 112: Negative or not required by law. Electronically signed by: Clinton Henson M.D. 01/04/2021 7:59 AM
[2021-01-04 08:33] LABS: BUN Creatinine Ratio 31.8 (10-20); Calcium 9.6 mg/dl (8.5-10.1); Creatinine Clr Calc Pharmacy 14.2 ml/min; Est GFR (African American) 13.7 ml/min; Est GFR (Non-African American) 11.9 ml/min
[2021-01-04 08:34] LABS: C Reactive Protein 6.82 mg/dl (0-0.29)
[2021-01-04] MEDS: METOCLOPRAMIDE HCL 5 MG TABLET PO SCH ×4 (09:13→20:12)
[2021-01-04] MEDS: amLODIPine BESYLATE 5 MG TAB PO SCH (09:14)
[2021-01-04] MEDS: GABAPENTIN 100 MG CAP PO SCH ×3 (09:15→20:10)
[2021-01-04] MEDS: ASPIRIN 81 MG ECTAB PO SCH (09:15)
[2021-01-04] MEDS: CLOPIDOGREL BISULFATE 75 MG TAB PO SCH (09:16)
[2021-01-04] MEDS: PANTOprazole 40 MG TAB PO SCH (09:16)
[2021-01-04] MEDS: carvediloL 25 MG TAB PO SCH ×2 (09:17→20:10)
[2021-01-04] MEDS: ISOSORBIDE MONO EXTENDED REL 60 MG TABCR PO SCH ×2 (09:18→20:12)
[2021-01-04] MEDS: dexAMETHasone 6 MG in SYRINGE 0 ML IV SCH (09:19)
--- NOTE | 2021-01-04 09:24 | Hospitalist Progress Note ---
Date of Service January 04, 2021 Assessment & Plan (1) COVID-19: Plan: initially tested negative on admission, repeat test last night positive appearance of viral pneumonia on imaging of chest Dexamethasone 6mg IV daily, day 1 cannot get Remdesivir due to renal failure no need for further antibiotics after today, no signs of bacterial infection appears a little dry, will give 1L of normosol today, follow [facility] via [facility] acute hypoxic respiratory failure, due to pneumonia placed on BIPAP last night, responded well, down to low flow nasal canula this morning could likely use the BIPAP every night guarded prognosis given her age, renal failure, diabetes (2) Pneumonia: Plan: 80yo female with multiple medical comorbidities presenting with SOB as well as productive cough, orthopnea, weight gain. Elevated WBC, CT findings concerning for infectious process. Covid-19 was negative, now POSITIVE on 01/04 -Supplemental O2 as needed to maintain saturations >92%, on 3L today -Continue Albuterol PRN add flutter valve and incentive spirometer to get her expanding lungs PT/OT evaluations, she lives alone at home (3) Troponin level elevated: Plan: - Pt clinically asymptomatic, no chest pain at assessment - EKG on admission with lateral ST depressions - Troponin elevated from 0.258 to 5.420, downtrending on repeat - Repeat EKG with improvement in lateral ischemic changes, appears near prior baseline. - prior hospitalist discussed with cardiology. Likely demand ischemia in the setting of underlying cardiac disease with superimposed PNA, COVID 19 infection continue plavix (previously on hold pending ortho hip injection) - TTE as noted in CHF (4) Congestive heart failure: Plan: - Patient with history of CHF. Dry weight initially thought to be 200 but closer to 210-214lbs - BNP elevated - Follows with Dr. Barlow, last seen 12/11/20 as well as Caridad Herrera in the Heart Failure clinic - Last echo with EF ~45%, moderate concentric LVH, grade II diastolic dysfunction, mild LA/RA dilation. Repeat TTE ef 60-65%, no wall motion abnormalities, - HOLD PO Bumex 4mg daily, Cr remains elevated at 3.48 cautiously give 1L of Normosol today at 80cc/hr BMP daily -Daily weights -Monitor I/Os -Continue home medications - Carvedilol, Hydralazine, Isosorbide mononitrate, hold Spironolactone (5) Diabetes mellitus with hyperglycemia: Plan: - Elevated blood sugar to 403 at admit. - On admit B-HB present but no anion gap - Lantus 15u BID, ISS. - Goal blood sugar 140 - 180 while inpatient - CC diet as tolerated - Continue Reglan Pharmacy glycemic consult placed given patient's history of hypoglycemia and fluctuating requirements add NPH insulin 30 units qAM starting this morning with the addition of dexamethasone to treat COVID 19 (6) CKD (chronic kidney disease) stage 4, GFR 15-29 ml/min: Plan: Acute kidney injury on CKD stage 4 - BUN up to 110, Cr up to 3.48, hold Bumex and spironolactone give 1L of Normosol today at 80cc/hr, follow [facility] via [facility] -Avoid nephrotoxic agents -Renal dosing where needed check BMP tomorrow (7) CAD (coronary artery disease): Plan: - Patient with longstanding history of CAD with stable angina. She follows with Dr. Barlow -Continue ASA -Plavix reportedly on hold as she is to have an injection soon in her hip. Restarted 2/2 elevated troponin per discussion with cardiology, continue until troponins down trended and patient no longer ill. Can reassess injection at that time -Continue Crestor -Continue Carvedilol -Opponent peaked, down trended (8) Hypertension: Plan: Blood pressure elevated increase Norvasc to 10mg, continue other home meds -Continue to monitor (9) Hyperlipidemia: Plan: Chronic -Continue Crestor (10) GERD (gastroesophageal reflux disease): Plan: Chronic -Continue Protonix Plan: 5 days of antibiotics (last day today), treat with dexamethasone, wean oxygen as tolerated guarded prognosis daily labs Ppx - Heparin Code - DNR/DNI per discussion with patient Dispo - continue PCU, COVID unit Admission and Anticipated Discharge Date Admission Date: December 31, 2020 Subjective patient developed worsening breathing last night, repeat COVID test was POSITIVE transferred to COVID unit she was placed on BIPAP, tolerated well, this morning she is back on nasal canula reviewed labs, Cr is 3.48, BUN 111, will give her some gentle fluids, 1L total today she has an appetite, no nausea, no cough, no fever/chills CRP is 6 reviewed again with her, she had COVID 19 in May, was hospitalized, then she got the vaccine this spring, she does not understand how she got COVID 19 again Review of Systems Review of Systems: All systems reviewed & are unremarkable except as noted in Subjective Constitutional: no fever and no weakness Respiratory: + cough, + dyspnea and + dyspnea on exertion Cardiovascular: no chest pain and no edema Gastrointestinal: no abdominal pain, no nausea, no vomiting, no constipation and no diarrhea/loose stools Physical Exam Constitutional: well developed, + ill appearing, + obese and comfortable; no acute distress Neck: trachea midline, no thyromegaly Respiratory: + cough and + tachypneic; no respiratory distress and no labored breathing Auscultation: + diminished lung sounds and + crackles; no rales, no rhonchi and no wheezes Cardiovascular: Rate/Rhythm: regular rate and regular rhythm Heart Sounds: normal S1 and normal S2; no murmur Extremities: normal capillary refill; no edema Gastrointestinal (Abdomen): normal bowel sounds, soft, nontender, no hepatosplenomegaly Musculoskeletal: no cyanosis or clubbing, extremities motor strength 5/5 Skin: no rashes, warm and dry Neurologic: normal touch/pain/proprioception, CN's II-XI intact bilaterally, moves all extremities and awake; no focal motor deficits and not confused Psychiatric: A+Ox3, euthymic affect Results & Data Results & Data ([facility]) Vital Signs (Past 12 Hours) Vital Signs Temp Pulse Pulse Pulse Resp BP BP 01/04/21 07:37 77 01/04/21 07:27 75 16 01/04/21 07:26 75 16 01/04/21 07:06 36.4 C L 77 14 137/64 01/04/21 02:40 36.5 C 76 18 162/66 H 01/04/21 02:27 74 01/04/21 02:10 72 21 01/04/21 00:37 71 21 01/04/21 00:20 74 17 01/03/21 23:41 78 24 01/03/21 23:37 36.4 C L 77 22 135/78 01/03/21 22:19 87 01/03/21 21:34 95 H 177/96 H 01/03/21 21:33 24 Pulse Ox 01/04/21 07:37 01/04/21 07:27 95 01/04/21 07:26 95 01/04/21 07:06 95 01/04/21 02:40 98 01/04/21 02:27 95 01/04/21 02:10 96 01/04/21 00:37 93 01/04/21 00:20 93 01/03/21 23:41 97 01/03/21 23:37 95 01/03/21 22:19 01/03/21 21:34 01/03/21 21:33 93 Laboratory Results Laboratory Results - last 24 hr 01/03/21 01/03/21 01/03/21 11:18 16:14 19:30 WBC RBC Hgb POC Hgb Hct POC Hct MCV MCH MCHC RDW Std Deviation RDW Coeff of Duy Plt Count MPV Immature Gran % (Auto) Neut % (Auto) Lymph % (Auto) Butts % (Auto) Eos % (Auto) Baso % (Auto) Neut # (Auto) Lymph # (Auto) Butts # (Auto) Eos # (Auto) Baso # (Auto) Immature Gran # (Auto) Sample Site POC pH POC pCO2 POC pO2 POC HCO3 POC Total CO2 POC Base Excess ABG pH (Temp Correct) ABG pCO2 (Temp Corrct POC ABG pO2 at Pt Temp POC ABG O2 Sat Jonathan Test O2 Delivery Device POC O2 Rate POC FiO2 IPAP POC Sodium Sodium POC Potassium Potassium Chloride Carbon Dioxide Anion Gap BUN Creatinine Est Cr Clr Drug Dosing Est GFR ( Amer) Est GFR (Non-Af Amer) BUN/Creatinine Ratio Glucose POC Glucose 177 H 192 H 217 H Calcium Troponin I C-Reactive Protein COVID-19 Eval Order SARS-CoV-2 (PCR) 01/03/21 01/03/21 01/03/21 20:47 23:51 23:51 WBC RBC Hgb POC Hgb Hct POC Hct MCV MCH MCHC RDW Std Deviation RDW Coeff of Duy Plt Count MPV Immature Gran % (Auto) Neut % (Auto) Lymph % (Auto) Butts % (Auto) Eos % (Auto) Baso % (Auto) Neut # (Auto) Lymph # (Auto) Butts # (Auto) Eos # (Auto) Baso # (Auto) Immature Gran # (Auto) Sample Site POC pH POC pCO2 POC pO2 POC HCO3 POC Total CO2 POC Base Excess ABG pH (Temp Correct) ABG pCO2 (Temp Corrct POC ABG pO2 at Pt Temp POC ABG O2 Sat Jonathan Test O2 Delivery Device POC O2 Rate POC FiO2 IPAP POC Sodium Sodium POC Potassium Potassium Chloride Carbon Dioxide Anion Gap BUN Creatinine Est Cr Clr Drug Dosing Est GFR ( Amer) Est GFR (Non-Af Amer) BUN/Creatinine Ratio Glucose POC Glucose 218 H Calcium Troponin I C-Reactive Protein COVID-19 Eval Order Covid19 at [facility] SARS-CoV-2 (PCR) POSITIVE A* 01/04/21 01/04/21 01/04/21 00:32 01:56 05:40 WBC 8.83 RBC 3.17 L Hgb 9.5 L POC Hgb 9.2 L Hct 29.5 L POC Hct 27 L MCV 93.1 MCH 30.0 MCHC 32.2 RDW Std Deviation 46.6 H RDW Coeff of Duy 13.7 Plt Count 259 MPV 10.9 H Immature Gran % (Auto) 0.3 Neut % (Auto) 93.7 Lymph % (Auto) 4.5 Butts % (Auto) 1.2 Eos % (Auto) 0.2 Baso % (Auto) 0.1 Neut # (Auto) 8.26 H Lymph # (Auto) 0.40 L Butts # (Auto) 0.11 Eos # (Auto) 0.02 Baso # (Auto) 0.01 Immature Gran # (Auto) 0.03 H Sample Site R Brachial POC pH 7.40 POC pCO2 46 POC pO2 86 POC HCO3 28 H POC Total CO2 30 POC Base Excess 3.0 H ABG pH (Temp Correct) 7.397 ABG pCO2 (Temp Corrct 46 POC ABG pO2 at Pt Temp 86 POC ABG O2 Sat 96.0 H Jonathan Test NA O2 Delivery Device BIPAP POC O2 Rate 12 POC FiO2 40 IPAP 12 POC Sodium 132 L Sodium POC Potassium 3.8 Potassium Chloride Carbon Dioxide Anion Gap BUN Creatinine Est Cr Clr Drug Dosing Est GFR ( Amer) Est GFR (Non-Af Amer) BUN/Creatinine Ratio Glucose POC Glucose Calcium Troponin I 0.737 H* C-Reactive Protein COVID-19 Eval Order SARS-CoV-2 (PCR) 01/04/21 01/04/21 05:45 07:03 WBC RBC Hgb POC Hgb Hct POC Hct MCV MCH MCHC RDW Std Deviation RDW Coeff of Duy Plt Count MPV Immature Gran % (Auto) Neut % (Auto) Lymph % (Auto) Butts % (Auto) Eos % (Auto) Baso % (Auto) Neut # (Auto) Lymph # (Auto) Butts # (Auto) Eos # (Auto) Baso # (Auto) Immature Gran # (Auto) Sample Site POC pH POC pCO2 POC pO2 POC HCO3 POC Total CO2 POC Base Excess ABG pH (Temp Correct) ABG pCO2 (Temp Corrct POC ABG pO2 at Pt Temp POC ABG O2 Sat Jonathan Test O2 Delivery Device POC O2 Rate POC FiO2 IPAP POC Sodium Sodium 134 L POC Potassium Potassium 4.0 Chloride 98 Carbon Dioxide 27 Anion Gap 9.0 BUN 111 H Creatinine 3.48 H Est Cr Clr Drug Dosing 14.2 Est GFR ( Amer) 13.7 Est GFR (Non-Af Amer) 11.9 BUN/Creatinine Ratio 31.8 H Glucose 162 H POC Glucose 184 H Calcium 9.6 Troponin I C-Reactive Protein 6.82 H COVID-19 Eval Order SARS-CoV-2 (PCR) Medications Administered Current Inpatient Medications Acetaminophen (Acetaminophen 325 Mg Tab) 650 mg PO Q4H PRN PRN Reason: Pain or Fever Stop: 01/30/21 04:32 Albuterol (Albuterol 0.083% Nebu Soln 3 Ml Vial) 2.5 mg INH Q4R [facility] Stop: 02/02/21 23:56 Last Admin: 01/04/21 07:24 Dose: 2.5 mg Documented by: Albuterol (Albut/Ipratrop 3mg/0.5mg Neb 3 Ml Vial) 3 ml NEB Q2H PRN PRN Reason: Shortness Of Breath Stop: 02/02/21 23:44 Last Admin: 01/04/21 00:35 Dose: 3 ml Documented by: Amlodipine Besylate (Amlodipine Besylate 5 Mg Tab) 10 mg PO QAM [facility] Stop: 02/03/21 08:59 Last Admin: 01/04/21 09:14 Dose: 10 mg Documented by: Aspirin (Aspirin 81 Mg Ectab) 81 mg PO QAM [facility] Stop: 01/30/21 08:59 Last Admin: 01/04/21 09:15 Dose: 81 mg Documented by: Bumetanide (Bumetanide 1 Mg Tab) 4 mg PO DAILY [facility] Stop: 01/30/21 08:59 Last Admin: 01/02/21 08:07 Dose: 4 mg Documented by: Carvedilol (Carvedilol 25 Mg Tab) 25 mg PO BID [facility] Stop: 01/30/21 08:59 Last Admin: 01/04/21 09:17 Dose: 25 mg Documented by: Clopidogrel Bisulfate (Clopidogrel Bisulfate 75 Mg Tab) 75 mg PO QAM [facility] Stop: 01/31/21 08:59 Last Admin: 01/04/21 09:16 Dose: 75 mg Documented by: Dextrose (Dextrose 50% 50 Ml Syringe) 25 - 50 ml IV UD PRN; Protocol PRN Reason: Hypoglycemia Protocol Stop: 01/30/21 04:32 Docusate Sodium (Docusate Sodium 100 Mg Cap) 100 mg PO HS [facility] Stop: 01/30/21 20:59 Last Admin: 01/03/21 21:08 Dose: 100 mg Documented by: Gabapentin (Gabapentin 100 Mg Cap) 100 mg PO TID [facility] Stop: 01/30/21 08:59 Last Admin: 01/04/21 09:15 Dose: 100 mg Documented by: Glucagon (Glucagon For Inj 1 Mg Vial) 1 mg SQ UD PRN; Protocol PRN Reason: Hypoglycemia Protocol Stop: 01/30/21 04:32 Glucose (Glucose 10 Tabs/Tube) 4 - 8 tabs PO UD PRN; Protocol PRN Reason: Hypoglycemia Protocol Stop: 01/30/21 04:32 Glucose (Glucose 40% Gel 15 Gm Tube) 15 - 30 gm PO UD PRN; Protocol PRN Reason: Hypoglycemia Protocol Stop: 01/30/21 04:32 Hydralazine HCl (Hydralazine Tab 50 Mg Tab) 100 mg PO TID [facility] Stop: 01/30/21 08:59 Last Admin: 01/03/21 21:08 Dose: 100 mg Documented by: Azithromycin 250 mg/ Dextrose 252.5 mls @ 125 mls/hr IV Q24H [facility] Stop: 01/04/21 23:59 Last Infusion: 01/04/21 00:24 Dose: Infused Documented by: Piperacillin Sod/Tazobactam (Sod 4.5 gm/ Dextrose) 120 mls @ 30 mls/hr IV Q12H [facility]; Protocol Stop: 01/11/21 07:59 Last Admin: 01/04/21 09:14 Dose: 30 mls/hr Documented by: Dexamethasone 6 mg/ Syringe 1.5 mls @ 1 mls/min IV DAILY [facility] Stop: 01/14/21 08:59 Last Admin: 01/04/21 09:19 Dose: 1 mls/min Documented by: Insulin Aspart (Insulin Aspart 100 Units/Ml 3 Ml Pen) 0 units SC [facility]; Protocol Stop: 01/30/21 07:29 Last Admin: 01/03/21 21:11 Dose: 6 units Documented by: Insulin Glargine (Insulin Glargine Solostar 100 Units/Ml 3 Ml Pen) 18 units SC QAM [facility]; Protocol Stop: 02/02/21 08:59 Last Admin: 01/03/21 08:46 Dose: 18 units Documented by: Insulin Glargine (Insulin Glargine Solostar 100 Units/Ml 3 Ml Pen) 15 units SC QPM [facility]; Protocol Stop: 02/01/21 20:59 Last Admin: 01/03/21 21:10 Dose: 15 units Documented by: Isosorbide Mononitrate (Isosorbide Butts Extended Rel 60 Mg Tabcr) 120 mg PO BID [facility] Stop: 01/30/21 08:59 Last Admin: 01/04/21 09:18 Dose: 120 mg Documented by: Metoclopramide HCl (Metoclopramide Hcl 5 Mg Tablet) 5 mg PO [facility] Stop: 01/30/21 07:29 Last Admin: 01/04/21 09:13 Dose: 5 mg Documented by: Miscellaneous (Carbohydrates For Hypoglycemia ) 15 - 30 gm PO UD PRN PRN Reason: Hypoglycemia Protocol Stop: 01/30/21 04:32 Miscellaneous Information (Pharmacy Glycemic Mgmt Consult) 1 ea N/A UD PRN PRN Reason: Consult Stop: 01/31/21 20:03 Miscellaneous Information (Piperacill/Tazobac Consult Active) 1 ea N/A UD PRN PRN Reason: Consult Stop: 02/02/21 23:54 Nystatin (Nystatin Powder 15gm Btl) 1 appln EXT TID PRN PRN Reason: Rash Stop: 02/02/21 21:45 Ondansetron HCl (Ondansetron Inj 2 Mg/Ml 2 Ml Vial) 4 mg IV Q6H PRN PRN Reason: Nausea Stop: 01/30/21 04:32 Pantoprazole Sodium (Pantoprazole 40 Mg Tab) 40 mg PO DAILY [facility] Stop: 01/30/21 08:59 Last Admin: 01/04/21 09:16 Dose: 40 mg Documented by: Rosuvastatin Calcium (Rosuvastatin Calcium 5 Mg Tab) 5 mg PO MoTh@0900 [facility] Stop: 02/01/21 08:59 Last Admin: 01/02/21 08:07 Dose: 5 mg Documented by: Spironolactone (Spironolactone 25 Mg Tab) 50 mg PO QAM [facility] Stop: 01/30/21 08:59 Last Admin: 01/03/21 08:44 Dose: 50 mg Documented by: Tramadol HCl (Tramadol Hcl 50 Mg Tablet) 50 - 100 mg PO BID PRN PRN Reason: Pain Stop: 01/30/21 04:32 Last Admin: 01/02/21 21:35 Dose: 50 mg Documented by: PG Care Time/CCT Total # of Minutes Spent Total Time Spent with Patient: Total time spent is greater than 50% in coordination of care (as documented) at patient's floor/unit and/or counseling patient: Coding Level of Care Code 13068 Subseq Hosp Care Lvl 3 Diagnoses Pneumonia J18.9 Troponin level elevated R77.8 Congestive heart failure I50.9 Heart failure chronicity: unspecified Heart failure type: unspecified Diabetes mellitus with hyperglycemia E11.65 CKD (chronic kidney disease) stage 4, GFR 15-29 ml/min N18.4 CAD (coronary artery disease) I25.10 Hypertension I10 Hyperlipidemia E78.5 GERD (gastroesophageal reflux disease) K21.9 COVID-19 U07.1 (1) Congestive heart failure Heart failure chronicity: unspecified Heart failure type: unspecified Qualified Code(s): I50.9 - Heart failure, unspecified
[2021-01-04] MEDS: INSULIN ASPART 100 UNITS/ML 3 ML PEN SC SCH ×4 (09:30→20:28)
[2021-01-04] MEDS: INSULIN GLARGINE SOLOSTAR 100 UNITS/ML 3 ML PEN SC SCH ×2 (09:30→20:33)
[2021-01-04] MEDS ORDERED: NORMOSOL-R 1,000 ML IV SCH (09:30)
[2021-01-04] MEDS ORDERED: INSULIN HUMAN NPH SC SCH (09:45)
[2021-01-04] MEDS: hydrALAZINE TAB 50 MG TAB PO SCH ×3 (10:43→20:13)
[2021-01-04] MEDS: INSULIN HUMAN NPH SC SCH (10:50)
--- NOTE | 2021-01-04 13:13 | Pharmacy Report ---
Pharmacy Glycemic Short Note 2 - Date of Service January 04, 2021 - Glycemic Short BSG Results (Last 24 hours): 01/03/21 01/03/21 01/03/21 16:14 19:30 20:47 Glucose POC Glucose 192 H 217 H 218 H 01/04/21 01/04/21 01/04/21 05:45 07:03 11:04 Glucose 162 H POC Glucose 184 H 337 H* 01/04/21 11:50 Glucose POC Glucose 311 H* OUTPATIENT ANTIDIABETIC REGIMEN: * Basaglar 30 units SC HS * Novolog 13 units TIDM ASSESSMENT: 01/04 * Patients BSGs trending upward with addition of steroids/worsening oxygen requirements yesterday * Fasting this morning 184 mg/dL- received steroid overnight and changed to dexamethasone, patient originally NPO this morning, ordered NPH when diet started * Lunch BSG elevated into the 300s, however patient had late breakfast and NPH was not given until ~1100, therefore will monitor this evening's doses for further changes. 01/02 * Patient received total of 70 units of insulin yesterday, of which 33 units were basal insulin * Fasting BSG 107 mg/dL - plan to continue same basal insulin * Continue same CF/CR 01/01 * 80 yo F w hx severe hypoglycemia admitted 12/31 for hyperglycemia. Pharmacy consulted on 01/01 * Post-prandial BSG's significantly elevated >200 mg/dL for 5 of the last 6 checks. Will tighten CHO ratio. Will also slightly tighten correction factor * AM fasting BSG slightly above goal. Will increase Lantus slightly by 20% * One overnight check PLAN FOR INPATIENT GLYCEMIC CONTROL: * Hold outpatient oral diabetes medications * Basal insulin * Lantus 18 units SQ qAM/15 units qPM * Bolus insulin * NovoLog per scale ACHS or Q6hrs while NPO * Goal Range: Low 110 mg/dL - High 140 mg/dL * Correction Factor: 15 mg/dL/unit * Nutritional / Prandial insulin per carb ratio of 1 unit per 6 grams CHO consumed PLAN FOR DISCHARGE: * A1C 7.5% - goal <8% is reasonable for patient * Would recommend continuation of home basaglar/novolog as long as patient is not experiencing frequent hypoglycemia
[2021-01-04] MEDS ORDERED: INSULIN ASPART 100 UNITS/ML 3 ML PEN SC STA (14:28)
--- NOTE | 2021-01-04 15:55 | Pulmonary Consultation ---
Date of Consultation January 04, 2021 Assessment & Plan (1) Acute respiratory failure with hypoxia: (2) Pneumonia due to COVID-19 virus: (3) Acute diastolic CHF (congestive heart failure): (4) ELEAZAR (acute kidney injury): 80-year-old female with a history of obesity, diastolic heart failure, CKD stage IV diabetes mellitus type 2 who presented to the hospital due to shortness of breath. She was found to have COVID-19 viral pneumonia on 01/04/2021. Acute hypoxemic respiratory failure: Multifactorial related to COVID-19 viral pneumonia and acute diastolic CHF. She does appear volume overloaded. Recommend consultation with nephrology regarding management of her volume status in the context of her acute kidney injury on CKD stage IV. Agree with Decadron to help with the inflammatory response to her viral pneumonia. Not a candidate for remdesivir she is out of the window she had an injury. Tocilizumab can be considered if her respiratory status worsens. She is currently requiring less oxygen than she was this morning. Continue to wean oxygen to maintain saturations of 90 to 92%. Continue with BiPAP at night or whenever sleeping. She was encouraged to use the incentive spirometer as much as possible. Awake proning advised. Acute kidney injury: Recommend consultation with nephrology as above. Pulmonary is available if questions arise. Thank you for the consult. History of Present Illness Reason for Consultation: Worsening hypoxia and Covid viral pneumonia Attending Physician: Yonatan Gonzalez DO History of Present Illness 80-year-old female with a past medical history of systolic and diastolic heart failure (EF 45%, grade 2 diastolic dysfunction) diabetes mellitus type 2 and CKD stage IV presented to the hospital due to increasing shortness of breath on the . She was having cough productive sputum. COVID-19 testing on admission was negative. She had a CT of her chest on the which demonstrated multifocal patchy airspace opacities concerning for viral process. Due to increasing oxygen demands and increasing work of breathing a chest x-ray was completed last evening along with a repeat COVID-19 test. Chest x-ray demonstrated increasing confluent airspace opacities bilaterally. She has a worsening creatinine with a creatinine of 3.48. BUN of 111. She also has hyperglycemia with a glucose of 311. She is 1.67 L positive since admission. She is currently on azithromycin. Decadron was started today. The patient says that she feels better as compared to yesterday. She is currently on 4 L of oxygen. She was on 6 L this morning. She tolerated BiPAP well yesterday. She does have lower extremity edema which she notes has been slowly improving. She feels little short of breath sitting up in bed. She is eager to sit in a chair. She has been using her flutter valve. She is a non- smoker. She is normally ambulatory and able to complete her activities of daily living without issue. She denies any history of tobacco abuse. Allergies Allergy/AdvReac Type Severity Reaction Status Date / Time Sulfa (Sulfonamide Allergy Intermediate RASH/PRURIT Verified 12/31/20 01:06 Antibiotics) IS sulfamethoxazole Allergy Intermediate RASH/PRURIT Verified 12/31/20 01:06 [From Bactrim] IS trimethoprim [From Bactrim] Allergy Intermediate RASH/PRURIT Verified 12/31/20 01:06 IS chlorpropamide AdvReac Intermediate N/V Verified 12/31/20 01:06 omeprazole AdvReac Intermediate interacts Verified 12/31/20 01:06 w/ clopidigrol ARI Inhibitors AdvReac Unknown AVOIDS Verified 12/31/20 01:06 SECONDARY TO "OTHER MEDICATIONS" PER PT Home Medications Medication Instructions Recorded Confirmed Type aspirin 81 mg tablet,delayed 81 mg PO QAM 04/23/18 12/31/20 History release cinnamon bark 500 mg capsule 1,000 mg PO DAILY PRN 04/23/18 12/31/20 History (Cinnamon) docusate sodium 100 mg capsule 100 mg PO HS 04/23/18 12/31/20 History fluticasone propionate 50 1 spray INTRANASAL BID PRN 04/23/18 12/31/20 History mcg/actuation nasal spray,suspension (Flonase Allergy Relief) glucagon (human recombinant) 1 mg 1 dose SUBCUT UD PRN 04/23/18 12/31/20 History solution for injection (Glucagon Emergency Kit) multivitamin (Multiple Vitamins) 1 tab PO QDL 04/23/18 12/31/20 History iron 18 mg tablet 18 mg PO QDL 11/28/18 12/31/20 History psyllium husk 3.4 gram/5.4 gram 1 tbsp PO HS 11/28/18 12/31/20 History oral powder (Metamucil) calcium 1 tab PO Q OTHER DAY tab 01/21/19 12/31/20 History [id number]-Fk-boron 250 mg-40 mg-125 unit tablet (Citracal-D3 Plus Magnesium) albuterol sulfate 90 mcg/actuation 2 puff INHALATION QID PRN #8.5 gm 05/22/19 12/31/20 Rx aerosol inhaler albuterol sulfate 2.5 mg INHALATION Q4H PRN #75 ml 06/03/19 12/31/20 Rx insulin aspart U-100 100 unit/mL See Rx Instructions SQ TID 90 Days 03/08/20 12/31/20 Rx (3 mL) subcutaneous pen (Novolog #45 ml Flexpen U-100 Insulin aspart) clopidogrel 75 mg tablet 75 mg PO DAILY #90 tab 03/28/20 12/31/20 Rx gabapentin 100 mg capsule 100 mg PO TID #270 cap 03/28/20 12/31/20 Rx blood-glucose meter (OneTouch #1 ea 04/05/20 12/14/20 History Verio Flex Start) blood sugar diagnostic (OneTouch #100 ea 04/06/20 12/14/20 Rx Verio test strips) lancets 33 gauge (BD Ultra Fine #100 ea 04/06/20 12/14/20 Rx Lancets) isosorbide mononitrate 120 mg 120 mg PO BID #180 tab 05/09/20 12/31/20 Rx tablet,extended release 24 hr carvedilol 25 mg tablet 25 mg PO BID #180 tab 06/01/20 12/31/20 Rx amlodipine 5 mg tablet (Norvasc) 5 mg PO QAM #90 tab 08/08/20 12/31/20 Rx spironolactone 50 mg tablet 50 mg PO QAM #90 tab 08/09/20 12/31/20 Rx hydralazine 100 mg tablet 100 mg PO TID #270 tab 08/29/20 12/31/20 Rx tramadol 50 mg tablet See Rx Instructions .ROUTE 08/29/20 12/31/20 Rx .COMPLEX #120 tablet BD Ultra-Fine Short Pen Needle 31 #400 ea NS 08/30/20 12/14/20 Rx gauge x 5/16" (pen needle, diabetic) bumetanide 2 mg tablet 4 mg PO DAILY tab 10/21/20 12/31/20 History Sigifredo Rowan U-100 Insulin 100 30 unit SUBCUT HS 90 Days #30 ml NS 10/24/20 12/31/20 Rx unit/mL (3 mL) subcutaneous (insulin glargine) pantoprazole 40 mg tablet,delayed 40 mg PO DAILY #90 tab 11/01/20 12/31/20 Rx release nitroglycerin 0.4 mg sublingual 0.4 mg SUBLINGUAL UD PRN #25 tab 12/12/20 12/31/20 Rx tablet (Nitrostat) metoclopramide HCl 5 mg tablet 5 mg PO ACHS 12/31/20 12/31/20 History rosuvastatin 5 mg tablet 5 mg PO 2XWK 12/31/20 12/31/20 History Patient History Medical History (Updated 01/04/21 @ 16:31 by Philip Gill MD) Acute asthmatic bronchitis Acute diastolic CHF (congestive heart failure) Acute respiratory failure with hypoxia ELEAZAR (acute kidney injury) Anemia Asthma CAD (coronary artery disease) Chronic diastolic (congestive) heart failure COVID-19 Diabetic neuropathy Elevated troponin Gastroparesis GERD (gastroesophageal reflux disease) Hyperlipidemia Hypertension Lumbar canal stenosis Osteoarthritis of knee Osteopenia Peripheral artery disease Pneumonia due to COVID-19 virus Renal artery stenosis Secondary hyperparathyroidism Sinusitis Type 2 diabetes mellitus with kidney complication, 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, with long-term current use of insulin Vitamin D deficiency Surgical History History of back surgery History of cataract surgery History of cholecystectomy History of coronary artery bypass graft History of coronary artery stent placement History of hysterectomy History of tonsillectomy S/P carpal tunnel release Family History Unknown Coronary heart disease Diabetes Brain cancer Father Kidney disease Brother COPD (chronic obstructive pulmonary disease) Prostate cancer Myocardial infarction Hypertension Heart disease Sister Lung cancer Denies family history of Rheumatoid arthritis Sudden SIDS (sudden infant syndrome) Ovarian cancer Deep vein thrombosis Osteoporosis Dyslipidemia Cerebral aneurysm Alzheimer disease Bipolar disorder Clotting disorder Crohn's disease Dementia Depression Osteoarthritis Breast cancer Schizophrenia Congenital kidney disease Gestational diabetes Colorectal cancer Pulmonary embolism Lung disease Cancer Ulcerative colitis Colonic polyp Stroke Asthma Cystic kidney disease Social History (Reviewed 12/31/20 @ 04:25 by FAB Avelar Smoking Status: Never smoker Second Hand Exposure: No; Hx Alcohol Use: No Hx Substance Use: No Preferred Language: Libyan Communication Ability: Effective Visual Impairment: No Limitations Hearing Ability: Normal Public Housing Manager Required: No Beliefs That Will Affect Care: None marital status: / Current Living Situation: Alone current occupational status: retired and disabled 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 Patient is in no apparent distress. Patient is well-developed. Eyes: Pupils are equal round and reactive to light. Conjunctivae are normal. Anicteric sclera. Ears nose, mouth and throat: Normal posterior oropharynx Neck: Trachea is midline. Visual inspection is normal. Respiratory: Diminished lung sounds bilaterally. Mildly increased work of breathing. Cardiovascular: Regular rate and rhythm. No murmurs. 2+ pitting edema in the lower extremities. Gastrointestinal: Normal bowel sounds, soft, nontender and nondistended. No hepatosplenomegaly noted. Musculoskeletal: No cyanosis. Patient is able to move all extremities. Strength is 5 out of 5 in the upper and lower extremities. Skin: No rashes, warm dry and intact. Neurologic: No obvious focal neurological deficits seen. Psychiatric: Alert and oriented x3 with a euthymic affect. Results & Data Results & Data ([facility]) Vital Signs (Past 12 Hours) Vital Signs Temp Pulse Pulse Resp BP BP Pulse Ox 01/04/21 15:47 76 01/04/21 15:44 82 20 94 01/04/21 15:17 97.7 F 83 26 H 151/79 H 97 01/04/21 11:26 72 16 100 01/04/21 11:19 98.1 F 75 25 H 158/67 H 99 01/04/21 07:37 77 01/04/21 07:27 75 16 95 01/04/21 07:26 75 16 95 01/04/21 07:06 97.5 F L 77 14 137/64 95 Chest x-ray, vital signs and imaging reviewed. Echo 12/31/2020 with EF of 60 to 65%. Mild to moderate mitral regurgitation. Mild LVH. PG Care Time/CCT Total # of Minutes Spent Total Time Spent with Patient: Total time spent is greater than 50% in coordination of care (as documented) at patient's floor/unit and/or counseling patient: Coding Level of Care Code 18621 Initial Inpt Care Lvl 2 Diagnoses Acute respiratory failure with hypoxia J96.01 Pneumonia due to COVID-19 virus U07.1; J12.82 Acute diastolic CHF (congestive heart failure) I50.31 ELEAZAR (acute kidney injury) N17.9
[2021-01-04] MEDS ORDERED: INSULIN HUMAN REGULAR PER UNIT 9 UNITS in SYRINGE 8.91 ML IV ONE (16:45)
--- NOTE | 2021-01-04 17:00 | Electrocardiogram Report ---
Test Reason : Blood Pressure : / mmHG Vent. Rate : 072 BPM Atrial Rate : 072 BPM P-R Int : 188 ms QRS Dur : 154 ms QT Int : 470 ms P-R-T Axes : 057 -20 165 degrees QTc Int : 514 ms Normal sinus rhythm Right bundle branch block T wave abnormality, consider inferolateral ischemia Abnormal ECG When compared with ECG of 31-DEC-2020 08:24, No significant change was found Confirmed by Mamadou Martinez ([id number]) on 01/04/2021 4:59:59 PM Referred By: REFERRED SELF Confirmed By:Mamadou Martinez
[2021-01-04] MEDS ORDERED: LOPERAMIDE HCL 2 MG CAP PO PRN (17:09)
[2021-01-04] MEDS: ALBUTEROL HFA 8 GM INHALER INH SCH ×2 (19:14→23:30)
[2021-01-04] MEDS: AZITHROMYCIN 250 MG in DEXTROSE 5% 250 ML IV SCH (20:09)
[2021-01-04] MEDS: DOCUSATE SODIUM 100 MG CAP PO SCH (20:11)
[2021-01-05] MEDS: INSULIN ASPART 100 UNITS/ML 3 ML PEN SC SCH ×6 (00:14→20:23)
[2021-01-05] MEDS: ALBUTEROL HFA 8 GM INHALER INH SCH ×2 (02:52→07:36)
[2021-01-05 07:39] LABS: Basophils # (auto) 0.01 K/uL (0-0.2); Basophils % (auto) 0.1 %; Hematocrit (blood only) 26.7 % (37-47); Hemoglobin 8.6 g/dL (12.0-16.0); Immature Granulocytes # (auto) 0.12 K/uL (0.00-0.02); Immature Granulocytes % (auto) 0.9 %; Lymphocytes # (auto) 0.94 K/uL (1.2-3.4); Lymphocytes % (auto) 7.4 %; Mean Corpuscular Hgb Conc 32.2 g/dL (32-36); Mean Platelet Volume 10.8 fL (7.4-10.4); Monocytes # (auto) 1.24 K/uL (0.11-0.59); Monocytes % (auto) 9.7 %; Neutrophils # (auto) 10.43 K/uL (1.4-6.5); Neutrophils % (auto) 81.9 %; Nucleated RBC # (auto) 0.02 K/uL (0-0); Nucleated RBC % (auto) 0.1 %; Platelet Count 250 K/uL (130-400); RDW Coefficient of Variation 13.8 % (11.5-14.5); RDW Standard Deviation 46.7 fL (36.4-46.3); Red Blood Count 2.87 M/uL (4.2-5.4); White Blood Count 12.74 K/uL (4.8-10.8)
[2021-01-05 08:05] LABS: BUN Creatinine Ratio 34.1 (10-20); Calcium 9.5 mg/dl (8.5-10.1); Creatinine Clr Calc Pharmacy 14.4 ml/min; Est GFR (Non-African American) 12.1 ml/min; Potassium 3.9 mmol/L (3.5-5.1)
[2021-01-05] MEDS: amLODIPine BESYLATE 5 MG TAB PO SCH (08:40)
[2021-01-05] MEDS: METOCLOPRAMIDE HCL 5 MG TABLET PO SCH ×4 (08:40→20:20)
[2021-01-05] MEDS: carvediloL 25 MG TAB PO SCH ×2 (08:41→20:21)
[2021-01-05] MEDS: ASPIRIN 81 MG ECTAB PO SCH (08:41)
[2021-01-05] MEDS: GABAPENTIN 100 MG CAP PO SCH ×3 (08:42→20:21)
[2021-01-05] MEDS: dexAMETHasone 6 MG in SYRINGE 0 ML IV SCH (08:42)
[2021-01-05] MEDS: CLOPIDOGREL BISULFATE 75 MG TAB PO SCH (08:42)
[2021-01-05] MEDS: INSULIN GLARGINE SOLOSTAR 100 UNITS/ML 3 ML PEN SC SCH ×2 (08:43→20:22)
[2021-01-05] MEDS: hydrALAZINE TAB 50 MG TAB PO SCH ×3 (08:43→20:21)
[2021-01-05] MEDS: INSULIN HUMAN NPH SC SCH (08:44)
[2021-01-05] MEDS: PANTOprazole 40 MG TAB PO SCH (08:46)
[2021-01-05] MEDS: ISOSORBIDE MONO EXTENDED REL 60 MG TABCR PO SCH ×2 (08:46→20:20)
[2021-01-05] MEDS: ROSUVASTATIN CALCIUM 5 MG TAB PO SCH (08:46)
[2021-01-05] MEDS ORDERED: ALBUTEROL HFA 8 GM INHALER INH PRN (09:05)
[2021-01-05] MEDS ORDERED: BUMETANIDE 4 MG in SYRINGE 0 ML IV ONE (10:15)
[2021-01-05] MEDS ORDERED: BUMETANIDE 2 MG in SYRINGE 0 ML IV ONE (10:45)
--- NOTE | 2021-01-05 12:39 | Pharmacy Report ---
Pharmacy Glycemic Short Note 2 - Date of Service January 05, 2021 - Glycemic Short BSG Results (Last 24 hours): 01/04/21 01/04/21 01/05/21 16:03 20:26 00:08 Glucose POC Glucose 376 H* 275 H 209 H 01/05/21 01/05/21 01/05/21 04:09 06:18 07:25 Glucose 103 H POC Glucose 128 H 103 H 01/05/21 11:54 Glucose POC Glucose 188 H OUTPATIENT ANTIDIABETIC REGIMEN: * Basaglar 30 units SC HS * Novolog 13 units TIDM ASSESSMENT: 01/05 * Post-prandial BSG still significantly elevated last night so tightened CHO ratio again at breakfast * AM fasting BSG good - continue Lantus and NPH as-is 01/04 * Patients BSGs trending upward with addition of steroids/worsening oxygen requirements yesterday * Fasting this morning 184 mg/dL- received steroid overnight and changed to dexamethasone, patient originally NPO this morning, ordered NPH when diet started * Lunch BSG elevated into the 300s, however patient had late breakfast and NPH was not given until ~1100, therefore will monitor this evening's doses for further changes. 01/02 * Patient received total of 70 units of insulin yesterday, of which 33 units were basal insulin * Fasting BSG 107 mg/dL - plan to continue same basal insulin * Continue same CF/CR 01/01 * 80 yo F w hx severe hypoglycemia admitted 12/31 for hyperglycemia. Pharmacy consulted on 01/01 * Post-prandial BSG's significantly elevated >200 mg/dL for 5 of the last 6 checks. Will tighten CHO ratio. Will also slightly tighten correction factor * AM fasting BSG slightly above goal. Will increase Lantus slightly by 20% * One overnight check PLAN FOR INPATIENT GLYCEMIC CONTROL: * Hold outpatient oral diabetes medications * Basal insulin * Lantus 18 units SQ qAM/15 units qPM * NPH 25 units SC qAM (given with dexamethasone) * Bolus insulin * NovoLog per scale ACHS or Q6hrs while NPO * Goal Range: Low 110 mg/dL - High 140 mg/dL * Correction Factor: 12 mg/dL/unit * Nutritional / Prandial insulin per carb ratio of 1 unit per 4 grams CHO consumed PLAN FOR DISCHARGE: * A1C 7.5% - goal <8% is reasonable for patient * As long as patient is not discharged on steroids and as long as patient is not experiencing frequent hypoglycemia at home, would recommend continuation of home Basaglar/Novolog
--- NOTE | 2021-01-05 12:44 | Nephrology Consultation ---
Date of Consultation January 05, 2021 Assessment & Plan (1) ELEAZAR (acute kidney injury): Creatinine relatively stable in the past 24 hours. Electrolytes acceptable. Five status replete. There is no emergent indication for dialysis. Treva is nonoliguric. Urine studies demonstrated 3+ protein, no blood, greater than 30 white blood cells. No renal imaging available for review at this time. Aldactone has been held appropriately. Medications appropriately for kidney function. CK will be updated. Received a statin dosing however is appropriate. Diuretics will be provided to encourage to slightly negative fluid balance. I will repeat a metabolic profile this afternoon. (2) Pneumonia due to COVID-19 virus: Remdesivir contraindicated due to renal dysfunction. Currently being treated with Decadron. Symptoms improving. (3) Acute respiratory failure with hypoxia: Evidence of fluid retention with hypervolemia, at loop diuretics will be provided to encourage slightly negative fluid balance. Responded well to 80 mg Lasix yesterday. Taking Bumex 4 mg daily at home. 2 mg of IV Bumex was provided today. (4) CKD (chronic kidney disease) stage 4, GFR 15-29 ml/min: Follows with Dr. Andrade as an outpatient. Goals of care reviewed. Potential future indications for dialysis discussed. No emergent indication for renal placement therapy at this time. Baseline creatinine 2.5 mg/dL. History of Present Illness Reason for Consultation: CKD Requesting Physician: Yonatan Gonzalez DO Attending Physician: Yonatan Gonzalez DO History of Present Illness Mrs. Treva Sosa is a 80-year-old female with CKD. She follows in the nephrology clinic with Dr. Andrade. Treva has CKD IV A3 attributed to vascular disease. Urine sediment is benign. Urinary protein with PCR 4.1 g/g. Renal ultrasound revealed kidneys which are small for size, but without obstruction. CTA of renal arteries 03/31 revealed only mild ostial stenosis. Repeat CTA 11/04 revealed high grade stenosis of the left renal artery and moderate to severe stenosis of the right renal artery. Ms. Sosa underwent L renal artery SEASONER w/ stenting at [facility] 01/29/18. she was admitted to [facility] on December 31 with serum creatinine of 3.16 mg/dL. Creatinine is now 3.4 mg/dL. Serum albumin 2.6. Treva is nonoliguric. She has been diagnosed with multifocal pneumonia with COVID. 80 mg of IV Lasix was provided yesterday. Patient also received IV hydration. She is positive 700 mL in the past 24 hours. COVID is being treated with Decadron. Some degree of chronic anemia. Hemoglobin is 8.6 currently. Medical history is also notable for peripheral vascular disease. in 2014 she underwent LE SEASONER complicated by bleeding & required 5U PRBC. she has longstanding hypertension with a negative workup for secondary causes in the past. PMH: Kidney stones (remote), AODM (no retinopathy. Uses Dexcom monitor), ASCVD s/p CABG x3 [facility], PTCA w/ stenting 06/30, carotid stenosis s/p bilateral CEA, hypercholesterolemia, [id number] (BMI 40), OA At the time of my assessment this morning, she was resting comfortably in bed. She is slightly dyspneic. She reports some degree of fatigue. She denies any fevers or chills. Her dyspnea has improved since admission. She has trace lower extremity edema which has been chronic. She has some puffiness in her hands within the past 2 days. Denies any chest pain or palpitations. I discussed the plan of care with Dr. Gonzalez this morning. Allergies Allergy/AdvReac Type Severity Reaction Status Date / Time Sulfa (Sulfonamide Allergy Intermediate RASH/PRURIT Verified 12/31/20 01:06 Antibiotics) IS sulfamethoxazole Allergy Intermediate RASH/PRURIT Verified 12/31/20 01:06 [From Bactrim] IS trimethoprim [From Bactrim] Allergy Intermediate RASH/PRURIT Verified 12/31/20 01:06 IS chlorpropamide AdvReac Intermediate N/V Verified 12/31/20 01:06 omeprazole AdvReac Intermediate interacts Verified 12/31/20 01:06 w/ clopidigrol ARI Inhibitors AdvReac Unknown AVOIDS Verified 12/31/20 01:06 SECONDARY TO "OTHER MEDICATIONS" PER PT Home Medications Medication Instructions Recorded Confirmed Type aspirin 81 mg tablet,delayed 81 mg PO QAM 04/23/18 12/31/20 History release cinnamon bark 500 mg capsule 1,000 mg PO DAILY PRN 04/23/18 12/31/20 History (Cinnamon) docusate sodium 100 mg capsule 100 mg PO HS 04/23/18 12/31/20 History fluticasone propionate 50 1 spray INTRANASAL BID PRN 04/23/18 12/31/20 History mcg/actuation nasal spray,suspension (Flonase Allergy Relief) glucagon (human recombinant) 1 mg 1 dose SUBCUT UD PRN 04/23/18 12/31/20 History solution for injection (Glucagon Emergency Kit) multivitamin (Multiple Vitamins) 1 tab PO QDL 04/23/18 12/31/20 History iron 18 mg tablet 18 mg PO QDL 11/28/18 12/31/20 History psyllium husk 3.4 gram/5.4 gram 1 tbsp PO HS 11/28/18 12/31/20 History oral powder (Metamucil) calcium 1 tab PO Q OTHER DAY tab 01/21/19 12/31/20 History sje-hgi-[id number]-[id number]-pqxahg-Ce-boron 250 mg-40 mg-125 unit tablet (Citracal-D3 Plus Magnesium) albuterol sulfate 90 mcg/actuation 2 puff INHALATION QID PRN #8.5 gm 05/22/19 12/31/20 Rx aerosol inhaler albuterol sulfate 2.5 mg INHALATION Q4H PRN #75 ml 06/03/19 12/31/20 Rx insulin aspart U-100 100 unit/mL See Rx Instructions SQ TID 90 Days 03/08/20 12/31/20 Rx (3 mL) subcutaneous pen (Novolog #45 ml Flexpen U-100 Insulin aspart) clopidogrel 75 mg tablet 75 mg PO DAILY #90 tab 03/28/20 12/31/20 Rx gabapentin 100 mg capsule 100 mg PO TID #270 cap 03/28/20 12/31/20 Rx blood-glucose meter (OneTouch #1 ea 04/05/20 12/14/20 History Verio Flex Start) blood sugar diagnostic (OneTouch #100 ea 04/06/20 12/14/20 Rx Verio test strips) lancets 33 gauge (BD Ultra Fine #100 ea 04/06/20 12/14/20 Rx Lancets) isosorbide mononitrate 120 mg 120 mg PO BID #180 tab 05/09/20 12/31/20 Rx tablet,extended release 24 hr carvedilol 25 mg tablet 25 mg PO BID #180 tab 06/01/20 12/31/20 Rx amlodipine 5 mg tablet (Norvasc) 5 mg PO QAM #90 tab 08/08/20 12/31/20 Rx spironolactone 50 mg tablet 50 mg PO QAM #90 tab 08/09/20 12/31/20 Rx hydralazine 100 mg tablet 100 mg PO TID #270 tab 08/29/20 12/31/20 Rx tramadol 50 mg tablet See Rx Instructions .ROUTE 08/29/20 12/31/20 Rx .COMPLEX #120 tablet BD Ultra-Fine Short Pen Needle 31 #400 ea NS 08/30/20 12/14/20 Rx gauge x 5/16" (pen needle, diabetic) bumetanide 2 mg tablet 4 mg PO DAILY tab 10/21/20 12/31/20 History Basaglar KwikPen U-100 Insulin 100 30 unit SUBCUT HS 90 Days #30 ml NS 10/24/20 12/31/20 Rx unit/mL (3 mL) subcutaneous (insulin glargine) pantoprazole 40 mg tablet,delayed 40 mg PO DAILY #90 tab 11/01/20 12/31/20 Rx release nitroglycerin 0.4 mg sublingual 0.4 mg SUBLINGUAL UD PRN #25 tab 12/12/20 12/31/20 Rx tablet (Nitrostat) metoclopramide HCl 5 mg tablet 5 mg PO ACHS 12/31/20 12/31/20 History rosuvastatin 5 mg tablet 5 mg PO 2XWK 12/31/20 12/31/20 History Patient History Medical History (Updated 01/04/21 @ 16:31 by Philip Gill MD) Acute asthmatic bronchitis Acute diastolic CHF (congestive heart failure) Acute respiratory failure with hypoxia ELEAZAR (acute kidney injury) Anemia Asthma CAD (coronary artery disease) Chronic diastolic (congestive) heart failure COVID-19 Diabetic neuropathy Elevated troponin Gastroparesis GERD (gastroesophageal reflux disease) Hyperlipidemia Hypertension Lumbar canal stenosis Osteoarthritis of knee Osteopenia Peripheral artery disease Pneumonia due to COVID-19 virus Renal artery stenosis Secondary hyperparathyroidism Sinusitis Type 2 diabetes mellitus with kidney complication, 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, with long-term current use of insulin Vitamin D deficiency Surgical History History of back surgery History of cataract surgery History of cholecystectomy History of coronary artery bypass graft History of coronary artery stent placement History of hysterectomy History of tonsillectomy S/P carpal tunnel release Family History Unknown Coronary heart disease Diabetes Brain cancer Father Kidney disease Brother COPD (chronic obstructive pulmonary disease) Prostate cancer Myocardial infarction Hypertension Heart disease Sister Lung cancer Denies family history of Rheumatoid arthritis Sudden SIDS (sudden syndrome) Ovarian cancer Deep vein thrombosis Osteoporosis Dyslipidemia Cerebral aneurysm Alzheimer disease Bipolar disorder Clotting disorder Crohn's disease Dementia Depression Osteoarthritis Breast cancer Schizophrenia Congenital kidney disease Gestational diabetes Colorectal cancer Pulmonary embolism Lung disease Cancer Ulcerative colitis Colonic polyp Stroke Asthma Cystic kidney disease Social History Smoking Status: Never smoker Second Hand Exposure: No; Hx Alcohol Use: No Hx Substance Use: No Preferred Language: Chinese Communication Ability: Effective Visual Impairment: No Limitations Hearing Ability: Normal Grades 1 Thru 6 Visiting Teacher Required: No Beliefs That Will Affect Care: None marital status: / Current Living Situation: Alone current occupational status: retired and disabled 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[employer], 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 How many Children do You have: 3 Feels Safe at Home: Yes Childhood Exposure to Second-Hand Smoke: Yes caffeine: Yes (coffee in AM, rarely a soda) during the past year weight has: remained stable Dental Care, Regularly: No Physical Activity Frequency: 1-2 Times per Week Seatbelt Use: always Sunscreen Use: Yes Assistive Devices: BiPap, Oxygen - Continuous and Walker Review of Systems Review of Systems: All systems reviewed & are unremarkable except as noted in HPI & below Physical Exam Constitutional: well developed; no acute distress Eyes: no scleral abnormality and no corneal abnormality ENMT: Mouth: no oral mucosal abnormality and oral mucous membranes not dry Neck: normal visual inspection and trachea midline Respiratory: normal respiratory effort Auscultation: + rales (scattered basilar) Cardiovascular: Rate/Rhythm: regular rate Heart Sounds: normal S1 and normal S2 Vessels: + JVD Extremities: + edema Musculoskeletal: Extremities: no cyanosis and no clubbing Skin: + turgor decreased; no lesions Neurologic: Motor/Sensory: no tremor and no asterixis Psychiatric: Orientation: alert and oriented x 3 Results & Data ([facility]) Vital Signs (Past 12 Hours) Vital Signs Temp Pulse Pulse Pulse Resp BP Pulse Ox 01/05/21 11:20 36.6 C 71 22 171/72 H 94 01/05/21 11:13 75 21 94 01/05/21 09:00 80 01/05/21 07:38 79 22 96 01/05/21 07:26 36.5 C 78 20 175/76 H 97 01/05/21 03:00 36.8 C 77 18 169/73 H 94 01/05/21 02:52 72 15 96 Laboratory Results Laboratory Results - last 24 hr 01/04/21 01/04/21 01/04/21 16:00 16:03 20:26 WBC RBC Hgb Hct MCV MCH MCHC RDW Std Deviation RDW Coeff of Duy Plt Count MPV Immature Gran % (Auto) Neut % (Auto) Lymph % (Auto) [place] % (Auto) Eos % (Auto) Baso % (Auto) Neut # (Auto) Lymph # (Auto) [place] # (Auto) Eos # (Auto) Baso # (Auto) Immature Gran # (Auto) Absolute Nucleated RBC Nucleated RBC % (auto) Sodium Potassium Chloride Carbon Dioxide Anion Gap BUN Creatinine Est Cr Clr Drug Dosing Est GFR ( Amer) Est GFR (Non-Af Amer) BUN/Creatinine Ratio Glucose POC Glucose 376 H* 275 H Calcium Total Creatine Kinase Nasal Screen MRSA (PCR) Negative 01/05/21 01/05/21 01/05/21 00:08 04:09 06:18 WBC 12.74 H RBC 2.87 L Hgb 8.6 L Hct 26.7 L MCV 93.0 MCH 30.0 MCHC 32.2 RDW Std Deviation 46.7 H RDW Coeff of Duy 13.8 Plt Count 250 MPV 10.8 H Immature Gran % (Auto) 0.9 Neut % (Auto) 81.9 Lymph % (Auto) 7.4 [place] % (Auto) 9.7 Eos % (Auto) 0.0 Baso % (Auto) 0.1 Neut # (Auto) 10.43 H Lymph # (Auto) 0.94 L [place] # (Auto) 1.24 H Eos # (Auto) 0.00 Baso # (Auto) 0.01 Immature Gran # (Auto) 0.12 H Absolute Nucleated RBC 0.02 H Nucleated RBC % (auto) 0.1 Sodium Potassium Chloride Carbon Dioxide Anion Gap BUN Creatinine Est Cr Clr Drug Dosing Est GFR ( Amer) Est GFR (Non-Af Amer) BUN/Creatinine Ratio Glucose POC Glucose 209 H 128 H Calcium Total Creatine Kinase Nasal Screen MRSA (PCR) 01/05/21 01/05/21 01/05/21 06:18 06:21 07:25 WBC RBC Hgb Hct MCV MCH MCHC RDW Std Deviation RDW Coeff of Duy Plt Count MPV Immature Gran % (Auto) Neut % (Auto) Lymph % (Auto) [place] % (Auto) Eos % (Auto) Baso % (Auto) Neut # (Auto) Lymph # (Auto) [place] # (Auto) Eos # (Auto) Baso # (Auto) Immature Gran # (Auto) Absolute Nucleated RBC Nucleated RBC % (auto) Sodium 136 Potassium 3.9 Chloride 101 Carbon Dioxide 26 Anion Gap 9.0 BUN 117 H Creatinine 3.43 H Est Cr Clr Drug Dosing 14.4 Est GFR ( Amer) 14.0 Est GFR (Non-Af Amer) 12.1 BUN/Creatinine Ratio 34.1 H Glucose 103 H POC Glucose 103 H Calcium 9.5 Total Creatine Kinase 64 Nasal Screen MRSA (PCR) 01/05/21 11:54 WBC RBC Hgb Hct MCV MCH MCHC RDW Std Deviation RDW Coeff of Duy Plt Count MPV Immature Gran % (Auto) Neut % (Auto) Lymph % (Auto) [place] % (Auto) Eos % (Auto) Baso % (Auto) Neut # (Auto) Lymph # (Auto) [place] # (Auto) Eos # (Auto) Baso # (Auto) Immature Gran # (Auto) Absolute Nucleated RBC Nucleated RBC % (auto) Sodium Potassium Chloride Carbon Dioxide Anion Gap BUN Creatinine Est Cr Clr Drug Dosing Est GFR ( Amer) Est GFR (Non-Af Amer) BUN/Creatinine Ratio Glucose POC Glucose 188 H Calcium Total Creatine Kinase Nasal Screen MRSA (PCR) PG Care Time/CCT Total # of Minutes Spent Total Time Spent with Patient: Total time spent is greater than 50% in coordination of care (as documented) at patient's floor/unit and/or counseling patient: Coding Level of Care Code 51975 Inpt Consult Level 4 Diagnoses ELEAZAR (acute kidney injury) N17.9 Pneumonia due to COVID-19 virus U07.1; J12.82 Acute respiratory failure with hypoxia J96.01 CKD (chronic kidney disease) stage 4, GFR 15-29 ml/min N18.4
[2021-01-05] MEDS: ALBUT/IPRATROP 3MG/0.5MG NEB 3 ML VIAL NEB PRN (14:59)
[2021-01-05 15:30] LABS: BUN Creatinine Ratio 35.8 (10-20); Calcium 9.2 mg/dl (8.5-10.1); Creatinine Clr Calc Pharmacy 14.6 ml/min; Est GFR (African American) 14.1 ml/min; Est GFR (Non-African American) 12.2 ml/min; Magnesium 2.5 mg/dl (1.8-2.4); Potassium 4.5 mmol/L (3.5-5.1)
--- NOTE | 2021-01-05 16:06 | Hospitalist Progress Note ---
Date of Service January 05, 2021 Assessment & Plan (1) COVID-19: Plan: initially tested negative on admission, repeat test 01/04 POSITIVE appearance of viral pneumonia on imaging of chest Dexamethasone 6mg IV daily, day 2 cannot get Remdesivir due to renal failure no need for further antibiotics after today, no signs of bacterial infection acute hypoxic respiratory failure, due to pneumonia placed on BIPAP night of 01/04 responded well, down to low flow nasal canula, 4L all day today use the BIPAP every night and as needed for naps during the day guarded prognosis given her age, renal failure, diabetes but she appears stable the past few days which is a good sign (2) Pneumonia: Plan: 80yo female with multiple medical comorbidities presenting with SOB as well as productive cough, orthopnea, weight gain. Elevated WBC, CT findings concerning for infectious process. Covid-19 was negative, now POSITIVE on 01/04 -Supplemental O2 as needed to maintain saturations >92%, on 3L today -Continue Albuterol PRN add flutter valve and incentive spirometer to get her expanding lungs PT/OT evaluations, she lives alone at home (3) Troponin level elevated: Plan: - Pt clinically asymptomatic, no chest pain at assessment - EKG on admission with lateral ST depressions - Troponin elevated from 0.258 to 5.420, downtrending on repeat - Repeat EKG with improvement in lateral ischemic changes, appears near prior baseline. - prior hospitalist discussed with cardiology. Likely demand ischemia in the setting of underlying cardiac disease with superimposed PNA, COVID 19 infection continue plavix (previously on hold pending ortho hip injection) - TTE as noted in CHF (4) Congestive heart failure: Plan: - Patient with history of CHF. Dry weight initially thought to be 200 but closer to 210-214lbs - BNP elevated - Follows with Dr. Barlow, last seen 12/11/20 as well as Caridad Herrera in the Heart Failure clinic - Last echo with EF ~45%, moderate concentric LVH, grade II diastolic dysfunction, mild LA/RA dilation. Repeat TTE ef 60-65%, no wall motion abnormalities, - continue Bumex 4mg PO daily BMP daily, Cr is 3.4 -Daily weights -Monitor I/Os -Continue home medications - Carvedilol, Hydralazine, Isosorbide mononitrate, hold Spironolactone (5) Diabetes mellitus with hyperglycemia: Plan: - Elevated blood sugar to 403 at admit. - On admit B-HB present but no anion gap - Lantus 15u BID, ISS. - Goal blood sugar 140 - 180 while inpatient - CC diet as tolerated - Continue Reglan Pharmacy glycemic consult placed given patient's history of hypoglycemia and f luctuating requirements add NPH insulin 30 units qAM, sugars stable (6) CKD (chronic kidney disease) stage 4, GFR 15-29 ml/min: Plan: Acute kidney injury on CKD stage 4 - Cr is still 3.4, resume Bumex and continue to hold spironolactone -Avoid nephrotoxic agents -Renal dosing where needed appreciate nephrology consult from Dr. Nickerson (7) CAD (coronary artery disease): Plan: - Patient with longstanding history of CAD with stable angina. She follows with Dr. Barlow -Continue ASA -Plavix reportedly on hold as she is to have an injection soon in her hip. Restarted 2/2 elevated troponin per discussion with cardiology, continue until troponins down trended and patient no longer ill. Can reassess injection at that time -Continue Crestor -Continue Carvedilol -Opponent peaked, down trended (8) Hypertension: Plan: Blood pressure elevated increase Norvasc to 10mg, continue other home meds -Continue to monitor (9) Hyperlipidemia: Plan: Chronic -Continue Crestor (10) GERD (gastroesophageal reflux disease): Plan: Chronic -Continue Protonix Plan: treat with dexamethasone, wean oxygen as tolerated guarded prognosis daily labs Ppx - Heparin Code - DNR/DNI per discussion with patient Dispo - continue PCU, COVID unit Admission and Anticipated Discharge Date Admission Date: December 31, 2020 Subjective patient doing well, breathing easy on 4L, sitting up in her chair negative fluid balance with the Bumex 2mg IV appreciate Dr. Nickerson's input, discussed with him patient is eating well, vitals stable reviewed labs, Cr remains high at 3.4, electrolytes stable she says her diarrhea is resolved Review of Systems Review of Systems: All systems reviewed & are unremarkable except as noted in Subjective Respiratory: + dyspnea and + dyspnea on exertion; no cough Cardiovascular: + edema; no chest pain Gastrointestinal: no abdominal pain, no nausea, no vomiting, no constipation and no diarrhea/loose stools Physical Exam Constitutional: well developed, + obese and comfortable; no acute distress Neck: trachea midline, no thyromegaly Respiratory: normal respiratory effort, lungs clear to auscultation normal respiratory effort and + cough; no respiratory distress and no labored breathing Auscultation: + diminished lung sounds; no crackles, no rales, no rhonchi and no wheezes Cardiovascular: Rate/Rhythm: regular rate and regular rhythm Heart Sounds: normal S1 and normal S2; no murmur Extremities: normal capillary refill; no edema Gastrointestinal (Abdomen): normal bowel sounds, soft, nontender, no hepatosplenomegaly Musculoskeletal: no cyanosis or clubbing, extremities motor strength 5/5 Skin: no rashes, warm and dry Neurologic: normal touch/pain/proprioception, CN's II-XI intact bilaterally, moves all extremities and awake; no focal motor deficits and not confused Psychiatric: A+Ox3, euthymic affect Results & Data Results & Data ([facility]) Vital Signs (Past 12 Hours) Vital Signs Temp Pulse Pulse Pulse Resp BP Pulse Ox 01/05/21 15:00 36.4 C L 79 18 148/66 H 94 01/05/21 14:59 72 24 95 01/05/21 14:55 72 24 95 01/05/21 11:20 36.6 C 71 22 171/72 H 94 01/05/21 11:13 75 21 94 01/05/21 09:00 80 01/05/21 07:38 79 22 96 01/05/21 07:26 36.5 C 78 20 175/76 H 97 Laboratory Results Laboratory Results - last 24 hr 01/04/21 01/04/21 01/05/21 16:00 20:26 00:08 WBC RBC Hgb Hct MCV MCH MCHC RDW Std Deviation RDW Coeff of Duy Plt Count MPV Immature Gran % (Auto) Neut % (Auto) Lymph % (Auto) [place] % (Auto) Eos % (Auto) Baso % (Auto) Neut # (Auto) Lymph # (Auto) [place] # (Auto) Eos # (Auto) Baso # (Auto) Immature Gran # (Auto) Absolute Nucleated RBC Nucleated RBC % (auto) Sodium Potassium Chloride Carbon Dioxide Anion Gap BUN Creatinine Est Cr Clr Drug Dosing Est GFR ( Amer) Est GFR (Non-Af Amer) BUN/Creatinine Ratio Glucose POC Glucose 275 H 209 H Calcium Magnesium Total Creatine Kinase Nasal Screen MRSA (PCR) Negative 01/05/21 01/05/21 01/05/21 04:09 06:18 06:18 WBC 12.74 H RBC 2.87 L Hgb 8.6 L Hct 26.7 L MCV 93.0 MCH 30.0 MCHC 32.2 RDW Std Deviation 46.7 H RDW Coeff of Duy 13.8 Plt Count 250 MPV 10.8 H Immature Gran % (Auto) 0.9 Neut % (Auto) 81.9 Lymph % (Auto) 7.4 [place] % (Auto) 9.7 Eos % (Auto) 0.0 Baso % (Auto) 0.1 Neut # (Auto) 10.43 H Lymph # (Auto) 0.94 L [place] # (Auto) 1.24 H Eos # (Auto) 0.00 Baso # (Auto) 0.01 Immature Gran # (Auto) 0.12 H Absolute Nucleated RBC 0.02 H Nucleated RBC % (auto) 0.1 Sodium 136 Potassium 3.9 Chloride 101 Carbon Dioxide 26 Anion Gap 9.0 BUN 117 H Creatinine 3.43 H Est Cr Clr Drug Dosing 14.4 Est GFR ( Amer) 14.0 Est GFR (Non-Af Amer) 12.1 BUN/Creatinine Ratio 34.1 H Glucose 103 H POC Glucose 128 H Calcium 9.5 Magnesium Total Creatine Kinase Nasal Screen MRSA (PCR) 01/05/21 01/05/21 01/05/21 06:21 07:25 11:54 WBC RBC Hgb Hct MCV MCH MCHC RDW Std Deviation RDW Coeff of Duy Plt Count MPV Immature Gran % (Auto) Neut % (Auto) Lymph % (Auto) [place] % (Auto) Eos % (Auto) Baso % (Auto) Neut # (Auto) Lymph # (Auto) [place] # (Auto) Eos # (Auto) Baso # (Auto) Immature Gran # (Auto) Absolute Nucleated RBC Nucleated RBC % (auto) Sodium Potassium Chloride Carbon Dioxide Anion Gap BUN Creatinine Est Cr Clr Drug Dosing Est GFR ( Amer) Est GFR (Non-Af Amer) BUN/Creatinine Ratio Glucose POC Glucose 103 H 188 H Calcium Magnesium Total Creatine Kinase 64 Nasal Screen MRSA (PCR) 01/05/21 01/05/21 14:40 15:59 WBC RBC Hgb Hct MCV MCH MCHC RDW Std Deviation RDW Coeff of Duy Plt Count MPV Immature Gran % (Auto) Neut % (Auto) Lymph % (Auto) [place] % (Auto) Eos % (Auto) Baso % (Auto) Neut # (Auto) Lymph # (Auto) [place] # (Auto) Eos # (Auto) Baso # (Auto) Immature Gran # (Auto) Absolute Nucleated RBC Nucleated RBC % (auto) Sodium 133 L Potassium 4.5 D Chloride 97 L Carbon Dioxide 27 Anion Gap 9.0 BUN 122 H Creatinine 3.40 H Est Cr Clr Drug Dosing 14.6 Est GFR ( Amer) 14.1 Est GFR (Non-Af Amer) 12.2 BUN/Creatinine Ratio 35.8 H Glucose 227 H POC Glucose 187 H Calcium 9.2 Magnesium 2.5 H Total Creatine Kinase Nasal Screen MRSA (PCR) Medications Administered Current Inpatient Medications Acetaminophen (Acetaminophen 325 Mg Tab) 650 mg PO Q4H PRN PRN Reason: Pain or Fever Stop: 01/30/21 04:32 Albuterol (Albut/Ipratrop 3mg/0.5mg Neb 3 Ml Vial) 3 ml NEB Q2H PRN PRN Reason: Shortness Of Breath Stop: 02/02/21 23:44 Last Admin: 01/05/21 14:59 Dose: 3 ml Documented by: Albuterol (Albuterol Hfa 8 Gm Inhaler) 2 puffs INH Q4R PRN; Protocol PRN Reason: Shortness Of Breath Or Wheezing Stop: 02/03/21 18:59 Amlodipine Besylate (Amlodipine Besylate 5 Mg Tab) 10 mg PO QAM [facility] Stop: 02/03/21 08:59 Last Admin: 01/05/21 08:40 Dose: 10 mg Documented by: Aspirin (Aspirin 81 Mg Ectab) 81 mg PO QAM [facility] Stop: 01/30/21 08:59 Last Admin: 01/05/21 08:41 Dose: 81 mg Documented by: Bumetanide (Bumetanide 1 Mg Tab) 4 mg PO DAILY [facility] Stop: 01/30/21 08:59 Last Admin: 01/02/21 08:07 Dose: 4 mg Documented by: Carvedilol (Carvedilol 25 Mg Tab) 25 mg PO BID [facility] Stop: 01/30/21 08:59 Last Admin: 01/05/21 08:41 Dose: 25 mg Documented by: Clopidogrel Bisulfate (Clopidogrel Bisulfate 75 Mg Tab) 75 mg PO QAM [facility] Stop: 01/31/21 08:59 Last Admin: 01/05/21 08:42 Dose: 75 mg Documented by: Dextrose (Dextrose 50% 50 Ml Syringe) 25 - 50 ml IV UD PRN; Protocol PRN Reason: Hypoglycemia Protocol Stop: 01/30/21 04:32 Docusate Sodium (Docusate Sodium 100 Mg Cap) 100 mg PO HS [facility] Stop: 01/30/21 20:59 Last Admin: 01/04/21 20:11 Dose: Not Given Documented by: Gabapentin (Gabapentin 100 Mg Cap) 100 mg PO TID [facility] Stop: 01/30/21 08:59 Last Admin: 01/05/21 15:13 Dose: 100 mg Documented by: Glucagon (Glucagon For Inj 1 Mg Vial) 1 mg SQ UD PRN; Protocol PRN Reason: Hypoglycemia Protocol Stop: 01/30/21 04:32 Glucose (Glucose 10 Tabs/Tube) 4 - 8 tabs PO UD PRN; Protocol PRN Reason: Hypoglycemia Protocol Stop: 01/30/21 04:32 Glucose (Glucose 40% Gel 15 Gm Tube) 15 - 30 gm PO UD PRN; Protocol PRN Reason: Hypoglycemia Protocol Stop: 01/30/21 04:32 Hydralazine HCl (Hydralazine Tab 50 Mg Tab) 100 mg PO TID [facility] Stop: 01/30/21 08:59 Last Admin: 01/05/21 15:13 Dose: 100 mg Documented by: Dexamethasone 6 mg/ Syringe 1.5 mls @ 1 mls/min IV DAILY [facility] Stop: 01/14/21 08:59 Last Admin: 01/05/21 08:42 Dose: 1 mls/min Documented by: Insulin Aspart (Insulin Aspart 100 Units/Ml 3 Ml Pen) 0 units SC [facility]; Protocol Stop: 01/30/21 07:29 Last Admin: 01/05/21 12:20 Dose: 15 units Documented by: Insulin Glargine (Insulin Glargine Solostar 100 Units/Ml 3 Ml Pen) 18 units SC [facility]; Protocol Stop: 02/02/21 08:59 Last Admin: 01/05/21 08:43 Dose: 18 units Documented by: Insulin Glargine (Insulin Glargine Solostar 100 Units/Ml 3 Ml Pen) 15 units SC QPM [facility]; Protocol Stop: 02/01/21 20:59 Last Admin: 01/04/21 20:33 Dose: 15 units Documented by: Insulin Human NPH (Insulin Human Nph) 25 units SC QAM [facility] Stop: 02/03/21 10:14 Last Admin: 01/05/21 08:44 Dose: 25 units Documented by: Isosorbide Mononitrate (Isosorbide [place] Extended Rel 60 Mg Tabcr) 120 mg PO BID [facility] Stop: 01/30/21 08:59 Last Admin: 01/05/21 08:46 Dose: 120 mg Documented by: Loperamide HCl (Loperamide Hcl 2 Mg Cap) 2 mg PO Q4H PRN PRN Reason: Diarrhea Stop: 02/03/21 17:08 Last Admin: 01/04/21 17:17 Dose: 2 mg Documented by: Metoclopramide HCl (Metoclopramide Hcl 5 Mg Tablet) [address] [facility] Stop: 01/30/21 07:29 Last Admin: 01/05/21 12:20 Dose: 5 mg Documented by: Miscellaneous (Carbohydrates For Hypoglycemia ) 15 - 30 gm PO UD PRN PRN Reason: Hypoglycemia Protocol Stop: 01/30/21 04:32 Miscellaneous Information (Pharmacy Glycemic Mgmt Consult) 1 ea N/A UD PRN PRN Reason: Consult Stop: 01/31/21 20:03 Nystatin (Nystatin Powder 15gm Btl) 1 appln EXT TID PRN PRN Reason: Rash Stop: 02/02/21 21:45 Ondansetron HCl (Ondansetron Inj 2 Mg/Ml 2 Ml Vial) 4 mg IV Q6H PRN PRN Reason: Nausea Stop: 01/30/21 04:32 Pantoprazole Sodium (Pantoprazole 40 Mg Tab) 40 mg PO DAILY [facility] Stop: 01/30/21 08:59 Last Admin: 01/05/21 08:46 Dose: 40 mg Documented by: Rosuvastatin Calcium (Rosuvastatin Calcium 5 Mg Tab) 5 mg PO MoTh@0900 [facility] Stop: 02/01/21 08:59 Last Admin: 01/05/21 08:46 Dose: 5 mg Documented by: Spironolactone (Spironolactone 25 Mg Tab) 50 mg PO QAM [facility] Stop: 01/30/21 08:59 Last Admin: 01/03/21 08:44 Dose: 50 mg Documented by: Tramadol HCl (Tramadol Hcl 50 Mg Tablet) 50 - 100 mg PO BID PRN PRN Reason: Pain Stop: 01/30/21 04:32 Last Admin: 01/02/21 21:35 Dose: 50 mg Documented by: PG Care Time/CCT Total # of Minutes Spent Total Time Spent with Patient: Total time spent is greater than 50% in coordination of care (as documented) at patient's floor/unit and/or counseling patient: Coding Level of Care Code 33385 Subseq Hosp Care Lvl 2 Diagnoses COVID-19 U07.1 Pneumonia J18.9 Troponin level elevated R77.8 Congestive heart failure I50.9 Heart failure chronicity: unspecified Heart failure type: unspecified Diabetes mellitus with hyperglycemia E11.65 CKD (chronic kidney disease) stage 4, GFR 15-29 ml/min N18.4 CAD (coronary artery disease) I25.10 Hypertension I10 Hyperlipidemia E78.5 GERD (gastroesophageal reflux disease) K21.9 (1) Congestive heart failure Heart failure chronicity: unspecified Heart failure type: unspecified Q ualified Code(s): I50.9 - Heart failure, unspecified
[2021-01-05] MEDS: traMADol HCL 50 MG TABLET PO PRN (18:52)
[2021-01-05] MEDS: DOCUSATE SODIUM 100 MG CAP PO SCH (20:21)
[2021-01-06] MEDS: ACETAMINOPHEN 325 MG TAB PO PRN ×3 (02:19→21:21)
[2021-01-06 06:07] LABS: Basophils # (auto) 0.01 K/uL (0-0.2); Basophils % (auto) 0.1 %; Eosinophils # (auto) 0.04 K/uL (0-0.5); Eosinophils % (auto) 0.3 %; Hemoglobin 8.3 g/dL (12.0-16.0); Immature Granulocytes # (auto) 0.16 K/uL (0.00-0.02); Immature Granulocytes % (auto) 1.3 %; Lymphocytes # (auto) 1.08 K/uL (1.2-3.4); Lymphocytes % (auto) 8.5 %; Mean Corpuscular Hemoglobin 30.6 pg (25-34); Mean Corpuscular Hgb Conc 33.2 g/dL (32-36); Mean Corpuscular Volume 92.3 fL (80-100); Monocytes # (auto) 1.43 K/uL (0.11-0.59); Monocytes % (auto) 11.2 %; Neutrophils # (auto) 10.01 K/uL (1.4-6.5); Neutrophils % (auto) 78.6 %; Platelet Count 244 K/uL (130-400); RDW Standard Deviation 46.5 fL (36.4-46.3); Red Blood Count 2.71 M/uL (4.2-5.4); White Blood Count 12.73 K/uL (4.8-10.8)
[2021-01-06 06:48] LABS: Albumin Level 2.5 gm/dl (3.4-5.0); BUN Creatinine Ratio 36.9 (10-20); Calcium 9.2 mg/dl (8.5-10.1); Creatinine Clr Calc Pharmacy 14.4 ml/min; Est GFR (Non-African American) 12.1 ml/min; Ferritin 252.3 ng/ml (8-388); Phosphorus 5.7 mg/dl (2.5-4.9); Potassium 4.1 mmol/L (3.5-5.1)
[2021-01-06] MEDS: CARBOHYDRATES FOR HYPOGLYCEMIA PO PRN (06:53)
[2021-01-06] MEDS: METOCLOPRAMIDE HCL 5 MG TABLET PO SCH ×4 (07:49→20:03)
[2021-01-06] MEDS: carvediloL 25 MG TAB PO SCH ×2 (07:49→20:01)
[2021-01-06] MEDS: amLODIPine BESYLATE 5 MG TAB PO SCH (07:49)
[2021-01-06] MEDS: hydrALAZINE TAB 50 MG TAB PO SCH ×3 (07:49→20:02)
[2021-01-06] MEDS: GABAPENTIN 100 MG CAP PO SCH ×3 (07:49→20:02)
[2021-01-06] MEDS: ASPIRIN 81 MG ECTAB PO SCH (07:49)
[2021-01-06] MEDS: PANTOprazole 40 MG TAB PO SCH (07:50)
[2021-01-06] MEDS: CLOPIDOGREL BISULFATE 75 MG TAB PO SCH (07:50)
[2021-01-06] MEDS: ISOSORBIDE MONO EXTENDED REL 60 MG TABCR PO SCH ×2 (07:50→20:01)
[2021-01-06] MEDS: INSULIN ASPART 100 UNITS/ML 3 ML PEN SC SCH ×4 (08:33→20:09)
[2021-01-06] MEDS: dexAMETHasone 6 MG in SYRINGE 0 ML IV SCH (08:33)
[2021-01-06] MEDS: INSULIN HUMAN NPH SC SCH (08:34)
[2021-01-06] MEDS: BUMETANIDE 1 MG TAB PO SCH (08:39)
[2021-01-06] MEDS ORDERED: EPOETIN ALFA 10,000 UNITS/ML VIAL SQ SCH (09:00)
--- NOTE | 2021-01-06 10:32 | Nephrology Progress Note ---
Date of Service January 06, 2021 Assessment & Plan (1) ELEAZAR (acute kidney injury): Plan: Creatinine relatively stable in the past 24 hours. Electrolytes acceptable. Improvement in volume status. There is no emergent indication for dialysis. Treva is nonoliguric. Urine studies demonstrated 3+ protein, no blood, greater than 30 white blood cells. No renal imaging available for review at this time. Aldactone has been held appropriately. Medications appropriately for kidney function. Continue diuretics to encourage to slightly negative fluid balance. Repeat metabolic profile tomorrow AM. (2) Pneumonia due to COVID-19 virus: Plan: Remdesivir contraindicated due to renal dysfunction. Currently being treated with Decadron. (3) Acute respiratory failure with hypoxia: Plan: Evidence of fluid retention with hypervolemia, Bumex will be provided to encourage slightly negative fluid balance. Bumex 2 mg daily at home. 2 mg of PO Bumex was provided today. (4) CKD (chronic kidney disease) stage 4, GFR 15-29 ml/min: Plan: Follows with Dr. Andrade as an outpatient. Goals of care reviewed. Potential future indications for dialysis discussed. No emergent indication for renal placement therapy. Baseline creatinine 2.5 mg/dL. (5) Anemia: Plan: Iron profile acceptable. Epogen 41043 units SQ provided today. Admission and Anticipated Discharge Date Admission Date: December 31, 2020 Subjective No acute events overnight. Adequate response to Bumex 2 mg yesterday. Review of Systems Review of Systems: All systems reviewed & are unremarkable except as noted in HPI & below Physical Exam Constitutional: well developed; no acute distress Eyes: no scleral abnormality and no corneal abnormality ENMT: Mouth: no oral mucosal abnormality and oral mucous membranes not dry Neck: normal visual inspection and trachea midline Respiratory: normal respiratory effort Auscultation: + rales (improved basilar) Cardiovascular: Rate/Rhythm: regular rate Heart Sounds: normal S1 and normal S2 Extremities: + edema Musculoskeletal: Extremities: no cyanosis and no clubbing Skin: + turgor decreased; no lesions Neurologic: Motor/Sensory: no tremor and no asterixis Psychiatric: Orientation: alert and oriented x 3 Results & Data ([facility]) Vital Signs (Past 12 Hours) Vital Signs Temp Pulse Pulse Pulse Resp BP Pulse Ox 01/06/21 08:00 67 01/06/21 07:00 36.4 C L 69 18 166/52 H 97 01/06/21 03:00 36.8 C 76 18 149/63 H 94 01/05/21 23:00 36.7 C 73 18 160/58 H 94 Laboratory Results Laboratory Results - last 24 hr 01/05/21 01/05/21 01/05/21 11:54 14:40 15:59 WBC RBC Hgb Hct MCV MCH MCHC RDW Std Deviation RDW Coeff of Duy Plt Count MPV Immature Gran % (Auto) Neut % (Auto) Lymph % (Auto) [place] % (Auto) Eos % (Auto) Baso % (Auto) Neut # (Auto) Lymph # (Auto) [place] # (Auto) Eos # (Auto) Baso # (Auto) Immature Gran # (Auto) Sodium 133 L Potassium 4.5 D Chloride 97 L Carbon Dioxide 27 Anion Gap 9.0 BUN 122 H Creatinine 3.40 H Est Cr Clr Drug Dosing 14.6 Est GFR ( Amer) 14.1 Est GFR (Non-Af Amer) 12.2 BUN/Creatinine Ratio 35.8 H Glucose 227 H POC Glucose 188 H 187 H Calcium 9.2 Phosphorus Magnesium 2.5 H Iron Transferrin Transferrin % Sat Ferritin Albumin 01/05/21 01/06/21 01/06/21 20:19 05:41 05:41 WBC 12.73 H RBC 2.71 L Hgb 8.3 L Hct 25.0 L MCV 92.3 MCH 30.6 MCHC 33.2 RDW Std Deviation 46.5 H RDW Coeff of Duy 14.0 Plt Count 244 MPV 10.0 Immature Gran % (Auto) 1.3 Neut % (Auto) 78.6 Lymph % (Auto) 8.5 [place] % (Auto) 11.2 Eos % (Auto) 0.3 Baso % (Auto) 0.1 Neut # (Auto) 10.01 H Lymph # (Auto) 1.08 L [place] # (Auto) 1.43 H Eos # (Auto) 0.04 Baso # (Auto) 0.01 Immature Gran # (Auto) 0.16 H Sodium 136 Potassium 4.1 Chloride 101 Carbon Dioxide 28 Anion Gap 7.0 BUN 126 H Creatinine 3.42 H Est Cr Clr Drug Dosing 14.4 Est GFR ( Amer) 14.0 Est GFR (Non-Af Amer) 12.1 BUN/Creatinine Ratio 36.9 H Glucose 45 L* POC Glucose 203 H Calcium 9.2 Phosphorus 5.7 H Magnesium Iron 57 Transferrin 192 L Transferrin % Sat 21 Ferritin 252.3 Albumin 2.5 L 01/06/21 01/06/21 01/06/21 06:51 06:53 07:05 WBC RBC Hgb Hct MCV MCH MCHC RDW Std Deviation RDW Coeff of Duy Plt Count MPV Immature Gran % (Auto) Neut % (Auto) Lymph % (Auto) [place] % (Auto) Eos % (Auto) Baso % (Auto) Neut # (Auto) Lymph # (Auto) [place] # (Auto) Eos # (Auto) Baso # (Auto) Immature Gran # (Auto) Sodium Potassium Chloride Carbon Dioxide Anion Gap BUN Creatinine Est Cr Clr Drug Dosing Est GFR ( Amer) Est GFR (Non-Af Amer) BUN/Creatinine Ratio Glucose POC Glucose 48 L* 43 L* 87 Calcium Phosphorus Magnesium Iron Transferrin Transferrin % Sat Ferritin Albumin PG Care Time/CCT Total # of Minutes Spent Total Time Spent with Patient: Total time spent is greater than 50% in meal cooker rdination of care (as documented) at patient's floor/unit and/or counseling patient: Coding Level of Care Code 94519 Subseq Hosp Care Lvl 3 Diagnoses ELEAZAR (acute kidney injury) N17.9 Pneumonia due to COVID-19 virus U07.1; J12.82 Acute respiratory failure with hypoxia J96.01 CKD (chronic kidney disease) stage 4, GFR 15-29 ml/min N18.4 Anemia D64.9
--- NOTE | 2021-01-06 12:10 | Pharmacy Report ---
Pharmacy Glycemic Short Note 2 - Date of Service January 06, 2021 - Glycemic Short BSG Results (Last 24 hours): 01/05/21 01/05/21 01/05/21 14:40 15:59 20: Glucose 227 H POC Glucose 187 H 203 H 01/06/21 01/06/21 01/06/21 05:41 06:51 06:53 Glucose 45 L* POC Glucose 48 L* 43 L* 01/06/21 01/06/21 07:05 11:10 Glucose POC Glucose 87 226 H OUTPATIENT ANTIDIABETIC REGIMEN: * Basaglar 30 units SC HS * Novolog 13 units TIDM ASSESSMENT: 01/06 * Severe AM hypoglycemia noted this AM with BSG of 43 mg/dL, despite no changes to basal insulin regimen yesterday (and 6 units of correctional insulin required overnight from 01/04 to 01/05). Etiology is likely Lantus, especially when given in combination with NPH * Post-prandial BSG's all still elevated >180 mg/dL yesterday, however * Will suspend Lantus for today due to severity of hypoglycemia this AM. OK to add back a little NPH with lunch now that BSG has rebounded substantially. * Will tighten CHO ratio 01/05 * Post-prandial BSG still significantly elevated last night so tightened CHO ratio again at breakfast * AM fasting BSG good - continue Lantus and NPH as-is 01/04 * Patients BSGs trending upward with addition of steroids/worsening oxygen requirements yesterday * Fasting this morning 184 mg/dL- received steroid overnight and changed to de xamethasone, patient originally NPO this morning, ordered NPH when diet started * Lunch BSG elevated into the 300s, however patient had late breakfast and NPH was not given until ~1100, therefore will monitor this evening's doses for further changes. 01/02 * Patient received total of 70 units of insulin yesterday, of which 33 units were basal insulin * Fasting BSG 107 mg/dL - plan to continue same basal insulin * Continue same CF/CR 01/01 * 80 yo F w hx severe hypoglycemia admitted 12/31 for hyperglycemia. Pharmacy consulted on 01/01 * Post-prandial BSG's significantly elevated >200 mg/dL for 5 of the last 6 checks. Will tighten CHO ratio. Will also slightly tighten correction factor * AM fasting BSG slightly above goal. Will increase Lantus slightly by 20% * One overnight check PLAN FOR INPATIENT GLYCEMIC CONTROL: * Hold outpatient oral diabetes medications * Basal insulin * Lantus 18 units SQ qAM/15 units qPM * NPH 25 units SC qAM (given with dexamethasone) * Bolus insulin * NovoLog per scale ACHS or Q6hrs while NPO * Goal Range: Low 110 mg/dL - High 140 mg/dL * Correction Factor: 12 mg/dL/unit * Nutritional / Prandial insulin per carb ratio of 1 unit per 4 grams CHO consumed PLAN FOR DISCHARGE: * A1C 7.5% - goal <8% is reasonable for patient * As long as patient is not discharged on steroids and as long as patient is not experiencing frequent hypoglycemia at home, would recommend continuation of home Basaglar/Novolog
[2021-01-06] MEDS ORDERED: INSULIN HUMAN NPH SC ONE (12:15)
[2021-01-06] MEDS: traMADol HCL 50 MG TABLET PO PRN (12:48)
--- NOTE | 2021-01-06 13:07 | Hospitalist Progress Note ---
Date of Service January 06, 2021 Assessment & Plan (1) COVID-19: Plan: initially tested negative on admission, repeat test 01/04 POSITIVE appearance of viral pneumonia on imaging of chest Dexamethasone 6mg IV daily, day 3 cannot get Remdesivir due to renal failure no need for further antibiotics, no signs of bacterial infection acute hypoxic respiratory failure, due to pneumonia placed on BIPAP night of 01/04 responded well, down to low flow nasal canula, 4L for several days use the BIPAP every night and as needed for naps during the day guarded prognosis given her age, renal failure, diabetes but she appears stable the past few days which is a good sign, she is not requiring more oxygen (2) Pneumonia: Plan: 80yo female with multiple medical comorbidities presenting with SOB as well as productive cough, orthopnea, weight gain. Elevated WBC, CT findings concerning for infectious process. Covid-19 was negative, now POSITIVE on 01/04 -Supplemental O2 as needed to maintain saturations >92%, on 4L today -Continue Albuterol PRN add flutter valve and incentive spirometer to get her expanding lungs PT/OT evaluations, she lives alone at home (3) Troponin level elevated: Plan: - Pt clinically asymptomatic, no chest pain at assessment - EKG on admission with lateral ST depressions - Troponin elevated from 0.258 to 5.420, downtrending on repeat - Repeat EKG with improvement in lateral ischemic changes, appears near prior baseline. - prior hospitalist discussed with cardiology. Likely demand ischemia in the setting of underlying cardiac disease with superimposed PNA, COVID 19 infection continue plavix (previously on hold pending ortho hip injection) - TTE as noted in CHF (4) Congestive heart failure: Plan: - Patient with history of CHF. Dry weight initially thought to be 200 but closer to 210-214lbs - BNP elevated - Follows with Dr. Barlow, last seen 12/11/20 as well as Caridad Herrera in the Heart Failure clinic - Last echo with EF ~45%, moderate concentric LVH, grade II diastolic dysfunction, mild LA/RA dilation. Repeat TTE ef 60-65%, no wall motion abnormalities, - continue Bumex 2mg PO daily BMP daily, Cr is 3.4 -Daily weights -Monitor I/Os -Continue home medications - Carvedilol, Hydralazine, Isosorbide mononitrate, resume Spironolactone (5) Diabetes mellitus with hyperglycemia: Plan: - Elevated blood sugar to 403 at admit. - On admit B-HB present but no anion gap - Lantus 15u BID, ISS. - Goal blood sugar 140 - 180 while inpatient - CC diet as tolerated - Continue Reglan Pharmacy glycemic consult placed given patient's history of hypoglycemia and fluctuating requirements add NPH insulin 30 units qAM, sugars stable (6) CKD (chronic kidney disease) stage 4, GFR 15-29 ml/min: Plan: Acute kidney injury on CKD stage 4 - Cr is still 3.4, resume Bumex but at 2mg and resume spironolactone 50mg -Avoid nephrotoxic agents -Renal dosing where needed appreciate nephrology consult from Dr. Nickerson (7) CAD (coronary artery disease): Plan: - Patient with longstanding history of CAD with stable angina. She follows with Dr. Barlow -Continue ASA -Plavix reportedly on hold as she is to have an injection soon in her hip. Restarted 2/2 elevated troponin per discussion with cardiology, continue until troponins down trended and patient no longer ill. Can reassess injection at that time -Continue Crestor -Continue Carvedilol -Opponent peaked, down trended (8) Hypertension: Plan: Blood pressure elevated increase Norvasc to 10mg, continue other home meds -Continue to monitor (9) Hyperlipidemia: Plan: Chronic -Continue Crestor (10) GERD (gastroesophageal reflux disease): Plan: Chronic -Continue Protonix Plan: treat with dexamethasone, wean oxygen as tolerated guarded prognosis daily labs Ppx - Heparin Code - DNR/DNI per discussion with patient Dispo - continue PCU, COVID unit Admission and Anticipated Discharge Date Admission Date: December 31, 2020 Subjective patient continues to do well, stable on 4L, no major changes today eating really well, no diarrhea, no nausea, no fever no chest pain, minimal cough labs show Cr is still 3.[address] Nickerson, appreciate his assistance Review of Systems Review of Systems: All systems reviewed & are unremarkable except as noted in Subjective Physical Exam Constitutional: well developed, + obese and comfortable; no acute distress Neck: trachea midline, no thyromegaly Respiratory: normal respiratory effort, lungs clear to auscultation normal respiratory effort and + cough; no respiratory distress and no labored breathing Auscultation: + diminished lung sounds; no crackles, no rales, no rhonchi and no wheezes Cardiovascular: Rate/Rhythm: regular rate and regular rhythm Heart Sounds: normal S1 and normal S2; no murmur Extremities: normal capillary refill; no edema Gastrointestinal (Abdomen): normal bowel sounds, soft, nontender, no he patosplenomegaly Musculoskeletal: no cyanosis or clubbing, extremities motor strength 5/5 Skin: no rashes, warm and dry Neurologic: normal touch/pain/proprioception, CN's II-XI intact bilaterally, moves all extremities and awake; no focal motor deficits and not confused Psychiatric: A+Ox3, euthymic affect Results & Data Results & Data ([facility]) Vital Signs (Past 12 Hours) Vital Signs Temp Pulse Pulse Pulse Resp BP Pulse Ox 01/06/21 11:00 36.4 C L 74 16 142/70 H 94 01/06/21 08:00 67 01/06/21 07:00 36.4 C L 69 18 166/52 H 97 01/06/21 03:00 36.8 C 76 18 149/63 H 94 Laboratory Results Laboratory Results - last 24 hr 01/05/21 01/05/21 01/05/21 14:40 15:59 20:19 WBC RBC Hgb Hct MCV MCH MCHC RDW Std Deviation RDW Coeff of Duy Plt Count MPV Immature Gran % (Auto) Neut % (Auto) Lymph % (Auto) Amador % (Auto) Eos % (Auto) Baso % (Auto) Neut # (Auto) Lymph # (Auto) [place] # (Auto) Eos # (Auto) Baso # (Auto) Immature Gran # (Auto) Sodium 133 L Potassium 4.5 D Chloride 97 L Carbon Dioxide 27 Anion Gap 9.0 BUN 122 H Creatinine 3.40 H Est Cr Clr Drug Dosing 14.6 Est GFR ( Amer) 14.1 Est GFR (Non-Af Amer) 12.2 BUN/Creatinine Ratio 35.8 H Glucose 227 H POC Glucose 187 H 203 H Calcium 9.2 Phosphorus Magnesium 2.5 H Iron Transferrin Transferrin % Sat Ferritin Albumin 01/06/21 01/06/21 01/06/21 05:41 05:41 06:51 WBC 12.73 H RBC 2.71 L Hgb 8.3 L Hct 25.0 L MCV 92.3 MCH 30.6 MCHC 33.2 RDW Std Deviation 46.5 H RDW Coeff of Duy 14.0 Plt Count 244 MPV 10.0 Immature Gran % (Auto) 1.3 Neut % (Auto) 78.6 Lymph % (Auto) 8.5 Am[place] % (Auto) 11.2 Eos % (Auto) 0.3 Baso % (Auto) 0.1 Neut # (Auto) 10.01 H Lymph # (Auto) 1.08 L [place] # (Auto) 1.43 H Eos # (Auto) 0.04 Baso # (Auto) 0.01 Immature Gran # (Auto) 0.16 H Sodium 136 Potassium 4.1 Chloride 101 Carbon Dioxide 28 Anion Gap 7.0 BUN 126 H Creatinine 3.42 H Est Cr Clr Drug Dosing 14.4 Est GFR ( Amer) 14.0 Est GFR (Non-Af Amer) 12.1 BUN/Creatinine Ratio 36.9 H Glucose 45 L* POC Glucose 48 L* Calcium 9.2 Phosphorus 5.7 H Magnesium Iron 57 Transferrin 192 L Transferrin % Sat 21 Ferritin 252.3 Albumin 2.5 L 01/06/21 01/06/21 01/06/21 06:53 07:05 11:10 WBC RBC Hgb Hct MCV MCH MCHC RDW Std Deviation RDW Coeff of Duy Plt Count MPV Immature Gran % (Auto) Neut % (Auto) Lymph % (Auto) Am[place] % (Auto) Eos % (Auto) Baso % (Auto) Neut # (Auto) Lymph # (Auto) [place] # (Auto) Eos # (Auto) Baso # (Auto) Immature Gran # (Auto) Sodium Potassium Chloride Carbon Dioxide Anion Gap BUN Creatinine Est Cr Clr Drug Dosing Est GFR ( Amer) Est GFR (Non-Af Amer) BUN/Creatinine Ratio Glucose POC Glucose 43 L* 87 226 H Calcium Phosphorus Magnesium Iron Transferrin Transferrin % Sat Ferritin Albumin Medications Administered Current Inpatient Medications Acetaminophen (Acetaminophen 325 Mg Tab) 650 mg PO Q4H PRN PRN Reason: Pain or Fever Stop: 01/30/21 04:32 Last Admin: 01/06/21 02:19 Dose: 650 mg Documented by: Albuterol (Albut/Ipratrop 3mg/0.5mg Neb 3 Ml Vial) 3 ml NEB Q2H PRN PRN Reason: Shortness Of Breath Stop: 02/02/21 23:44 Last Admin: 01/05/21 14:59 Dose: 3 ml Documented by: Albuterol (Albuterol Hfa 8 Gm Inhaler) 2 puffs INH Q4R PRN; Protocol PRN Reason: Shortness Of Breath Or Wheezing Stop: 02/03/21 18:59 Amlodipine Besylate (Amlodipine Besylate 5 Mg Tab) 10 mg PO QAM [facility] Stop: 02/03/21 08:59 Last Admin: 01/06/21 07:49 Dose: 10 mg Documented by: Aspirin (Aspirin 81 Mg Ectab) 81 mg PO QAM [facility] Stop: 01/30/21 08:59 Last Admin: 01/06/21 07:49 Dose: 81 mg Documented by: Bumetanide (Bumetanide 1 Mg Tab) 2 mg PO QAM [facility] Stop: 02/05/21 08:59 Last Admin: 01/06/21 08:39 Dose: 2 mg Documented by: Carvedilol (Carvedilol 25 Mg Tab) 25 mg PO BID [facility] Stop: 01/30/21 08:59 Last Admin: 01/06/21 07:49 Dose: 25 mg Documented by: Clopidogrel Bisulfate (Clopidogrel Bisulfate 75 Mg Tab) 75 mg PO QAM [facility] Stop: 01/31/21 08:59 Last Admin: 01/06/21 07:50 Dose: 75 mg Documented by: Dextrose (Dextrose 50% 50 Ml Syringe) 25 - 50 ml IV UD PRN; Protocol PRN Reason: Hypoglycemia Protocol Stop: 01/30/21 04:32 Docusate Sodium (Docusate Sodium 100 Mg Cap) 100 mg PO HS [facility] Stop: 01/30/21 20:59 Last Admin: 01/05/21 20:21 Dose: 100 mg Documented by: Epoetin Herb (Epoetin Herb 10,000 Units/Ml Vial) 10,000 units SQ TODAY@0900 [facility] Stop: 01/06/21 18:00 Last Admin: 01/06/21 10:36 Dose: 10,000 units Documented by: Gabapentin (Gabapentin 100 Mg Cap) 100 mg PO TID [facility] Stop: 01/30/21 08:59 Last Admin: 01/06/21 07:49 Dose: 100 mg Documented by: Glucagon (Glucagon For Inj 1 Mg Vial) 1 mg SQ UD PRN; Protocol PRN Reason: Hypoglycemia Protocol Stop: 01/30/21 04:32 Glucose (Glucose 10 Tabs/Tube) 4 - 8 tabs PO UD PRN; Protocol PRN Reason: Hypoglycemia Protocol Stop: 01/30/21 04:32 Glucose (Glucose 40% Gel 15 Gm Tube) 15 - 30 gm PO UD PRN; Protocol PRN Reason: Hypoglycemia Protocol Stop: 01/30/21 04:32 Guaifenesin/Codeine Phosphate (Guaifenesin/Codeine 200mg/20mg 10ml Udc) 10 ml PO Q6H PRN PRN Reason: Cough Stop: 02/05/21 08:36 Last Admin: 01/06/21 09:20 Dose: 10 ml Documented by: Hydralazine HCl (Hydralazine Tab 50 Mg Tab) 100 mg PO TID [facility] Stop: 01/30/21 08:59 Last Admin: 01/06/21 07:49 Dose: 100 mg Documented by: Dexamethasone 6 mg/ Syringe 1.5 mls @ 1 mls/min IV DAILY [facility] Stop: 01/14/21 08:59 Last Admin: 01/06/21 08:33 Dose: 1 mls/min Documented by: Insulin Aspart (Insulin Aspart 100 Units/Ml 3 Ml Pen) 0 units [facility]; Protocol Stop: 01/30/21 07:29 Last Admin: 01/06/21 12:41 Dose: 16 units Documented by: Isosorbide Mononitrate (Isosorbide Amador Extended Rel 60 Mg Tabcr) 120 mg PO BID [facility] Stop: 01/30/21 08:59 Last Admin: 01/06/21 07:50 Dose: 120 mg Documented by: Loperamide HCl (Loperamide Hcl 2 Mg Cap) 2 mg PO Q4H PRN PRN Reason: Diarrhea Stop: 02/03/21 17:08 Last Admin: 01/04/21 17:17 Dose: 2 mg Documented by: Metoclopramide HCl (Metoclopramide Hcl 5 Mg Tablet) 5 mg PO [facility] Stop: 01/30/21 07:29 Last Admin: 01/06/21 12:43 Dose: 5 mg Documented by: Miscellaneous (Carbohydrates For Hypoglycemia ) 15 - 30 gm PO UD PRN PRN Reason: Hypoglycemia Protocol Stop: 01/30/21 04:32 Last Admin: 01/06/21 06:53 Dose: 30 gm Documented by: Miscellaneous Information (Pharmacy Glycemic Mgmt Consult) 1 ea N/A UD PRN PRN Reason: Consult Stop: 01/31/21 20:03 Nystatin (Nystatin Powder 15gm Btl) 1 appln EXT TID PRN PRN Reason: Rash Stop: 02/02/21 21:45 Ondansetron HCl (Ondansetron Inj 2 Mg/Ml 2 Ml Vial) 4 mg IV Q6H PRN PRN Reason: Nausea Stop: 01/30/21 04:32 Pantoprazole Sodium (Pantoprazole 40 Mg Tab) 40 mg PO DAILY [facility] Stop: 01/30/21 08:59 Last Admin: 01/06/21 07:50 Dose: 40 mg Documented by: Rosuvastatin Calcium (Rosuvastatin Calcium 5 Mg Tab) 5 mg PO MoTh@0900 [facility] Stop: 02/01/21 08:59 Last Admin: 01/05/21 08:46 Dose: 5 mg Documented by: Spironolactone (Spironolactone 25 Mg Tab) 50 mg PO QAM [facility] Stop: 01/30/21 08:59 Last Admin: 01/03/21 08:44 Dose: 50 mg Documented by: Tramadol HCl (Tramadol Hcl 50 Mg Tablet) 50 - 100 mg PO BID PRN PRN Reason: Pain Stop: 01/30/21 04:32 Last Admin: 01/06/21 12:48 Dose: 50 mg Documented by: PG Care Time/CCT Total # of Minutes Spent Total Time Spent with Patient: Total time spent is greater than 50% in coordination of care (as documented) at patient's floor/unit and/or counseling patient: Coding Level of Care Code 82671 Subseq Hosp Care Lvl 2 Diagnoses COVID-19 U07.1 Pneumonia J18.9 Troponin level elevated R77.8 Congestive heart failure I50.9 Heart failure chronicity: unspecified Heart failure type: unspecified Diabetes mellitus with hyperglycemia E11.65 CKD (chronic kidney disease) stage 4, GFR 15-29 ml/min N18.4 CAD (coronary artery disease) I25.10 Hypertension I10 Hyperlipidemia E78.5 GERD (gastroesophageal reflux disease) K21.9 (1) Congestive heart failure Heart failure chronicity: unspecified Heart failure type: unspecified Qualified Code(s): I50.9 - Heart failure, unspecified
[2021-01-06] MEDS: DOCUSATE SODIUM 100 MG CAP PO SCH (20:02)
[2021-01-06] MEDS: MELATONIN 3 MG TAB PO PRN (21:21)
[2021-01-07] MEDS: traMADol HCL 50 MG TABLET PO PRN ×3 (02:33→22:35)
[2021-01-07] MEDS: ACETAMINOPHEN 325 MG TAB PO PRN (07:20)
[2021-01-07] MEDS: ISOSORBIDE MONO EXTENDED REL 60 MG TABCR PO SCH ×2 (07:21→20:36)
[2021-01-07] MEDS: METOCLOPRAMIDE HCL 5 MG TABLET PO SCH ×4 (07:21→20:35)
[2021-01-07] MEDS: BUMETANIDE 1 MG TAB PO SCH (07:21)
[2021-01-07] MEDS: PANTOprazole 40 MG TAB PO SCH (07:22)
[2021-01-07] MEDS: CLOPIDOGREL BISULFATE 75 MG TAB PO SCH (07:22)
[2021-01-07] MEDS: GABAPENTIN 100 MG CAP PO SCH ×3 (07:22→20:36)
[2021-01-07] MEDS: hydrALAZINE TAB 50 MG TAB PO SCH ×3 (07:22→20:36)
[2021-01-07] MEDS: carvediloL 25 MG TAB PO SCH ×2 (07:23→20:35)
[2021-01-07] MEDS: amLODIPine BESYLATE 5 MG TAB PO SCH (07:23)
[2021-01-07] MEDS: ASPIRIN 81 MG ECTAB PO SCH (07:23)
[2021-01-07] MEDS: dexAMETHasone 6 MG in SYRINGE 0 ML IV SCH (07:47)
[2021-01-07 08:11] LABS: Hematocrit (blood only) 26.2 % (37-47); Hemoglobin 8.7 g/dL (12.0-16.0); Mean Corpuscular Hemoglobin 30.7 pg (25-34); Mean Corpuscular Hgb Conc 33.2 g/dL (32-36); Mean Corpuscular Volume 92.6 fL (80-100); Mean Platelet Volume 10.3 fL (7.4-10.4); Platelet Count 241 K/uL (130-400); RDW Coefficient of Variation 14.1 % (11.5-14.5); RDW Standard Deviation 47.1 fL (36.4-46.3); Red Blood Count 2.83 M/uL (4.2-5.4); White Blood Count 10.99 K/uL (4.8-10.8)
[2021-01-07] MEDS: INSULIN ASPART 100 UNITS/ML 3 ML PEN SC SCH ×4 (08:21→20:37)
[2021-01-07] MEDS: INSULIN HUMAN NPH SC SCH (08:25)
[2021-01-07 08:30] LABS: Albumin Level 2.7 gm/dl (3.4-5.0); BUN Creatinine Ratio 38.5 (10-20); Calcium 9.1 mg/dl (8.5-10.1); Creatinine Clr Calc Pharmacy 14.9 ml/min; Est GFR (African American) 14.7 ml/min; Est GFR (Non-African American) 12.6 ml/min; Phosphorus 5.7 mg/dl (2.5-4.9); Potassium 4.4 mmol/L (3.5-5.1)
--- NOTE | 2021-01-07 08:41 | Hospitalist Progress Note ---
Date of Service January 07, 2021 Assessment & Plan (1) COVID-19: Plan: initially tested negative on admission, repeat test 01/04 POSITIVE appearance of viral pneumonia on imaging of chest Dexamethasone 6mg IV daily, day 4 cannot get Remdesivir due to renal failure no need for further antibiotics, no signs of bacterial infection acute hypoxic respiratory failure, due to pneumonia placed on BIPAP night of 01/04 responded well now on room air - 2L intermittently use the BIPAP every night and as needed for naps during the day prognosis steadily improving, less oxygen required and Cr coming down slightly (2) Pneumonia: Plan: 80yo female with multiple medical comorbidities presenting with SOB as well as productive cough, orthopnea, weight gain. Elevated WBC, CT findings concerning for infectious process. Covid-19 was negative, now POSITIVE on 01/04 -Supplemental O2 as needed to maintain saturations >92%, on 2L right now but was stable on room air for a short while this morning which is good sign -Continue Albuterol PRN add flutter valve and incentive spirometer to get her expanding lungs PT/OT evaluations, she lives alone at home (3) Troponin level elevated: Plan: - Pt clinically asymptomatic, no chest pain at assessment - EKG on admission with lateral ST depressions - Troponin elevated from 0.258 to 5.420, downtrending on repeat - Repeat EKG with improvement in lateral ischemic changes, appears near prior baseline. - prior hospitalist discussed with cardiology. Likely demand ischemia in the setting of underlying cardiac disease with superimposed PNA, COVID 19 infection continue plavix (previously on hold pending ortho hip injection) - TTE as noted in CHF (4) Congestive heart failure: Plan: - Patient with history of CHF. Dry weight initially thought to be 200 but closer to 210-214lbs - BNP elevated - Follows with Dr. Barlow, last seen 12/11/20 as well as Caridad Herrera in the Heart Failure clinic - Last echo with EF ~45%, moderate concentric LVH, grade II diastolic dysfunction, mild LA/RA dilation. Repeat TTE ef 60-65%, no wall motion abnormalities, - continue Bumex 2mg PO daily BMP daily, Cr is 3.3, negative fluid balance yesterday -Continue home medications - Carvedilol, Hydralazine, Isosorbide mononitrate, resume Spironolactone (5) Diabetes mellitus with hyperglycemia: Plan: - Elevated blood sugar to 403 at admit. - On admit B-HB present but no anion gap - Lantus 15u BID, ISS. - Goal blood sugar 140 - 180 while inpatient - CC diet as tolerated - Continue Reglan Pharmacy glycemic consult placed given patient's history of hypoglycemia and fluctuating requirements add NPH insulin 30 units qAM, sugars stable, no hypoglycemia past 24 hours, had an episode two nights ago (6) CKD (chronic kidney disease) stage 4, GFR 15-29 ml/min: Plan: Acute kidney injury on CKD stage 4 - Cr is stable, 3.3 today, resumed Bumex but at 2mg and resumed spironolactone 50mg -Avoid nephrotoxic agents -Renal dosing where needed appreciate nephrology consult from Dr. Nickerson (7) CAD (coronary artery disease): Plan: - Patient with longstanding history of CAD with stable angina. She follows with Dr. Barlow -Continue ASA -Plavix reportedly on hold as she is to have an injection soon in her hip. Restarted 2/2 elevated troponin per discussion with cardiology, continue until troponins down trended and patient no longer ill. Can reassess injection at that time -Continue Crestor -Continue Carvedilol -Opponent peaked, down trended (8) Hypertension: Plan: Blood pressure a little better today increased Norvasc to 10mg yesterday, continue other home meds -Continue to monitor (9) Hyperlipidemia: Plan: Chronic -Continue Crestor (10) GERD (gastroesophageal reflux disease): Plan: Chronic -Continue Protonix Plan: treat with dexamethasone, wean oxygen as tolerated daily labs anticipate she may need rehab if not strong enough to go home Ppx - Heparin Code - DNR/DNI per discussion with patient Dispo - continue PCU, COVID unit Admission and Anticipated Discharge Date Admission Date: December 31, 2020 Subjective patient doing well on room air at times, now on 2L, no distress, breathing well Cr down a little at 3.3, she has a negative fluid balance, K stable eating well, no diarrhea, no fever, no chest pain, minimal cough vitals stable, sitting OOB in chair Review of Systems Review of Systems: All systems reviewed & are unremarkable except as noted in Subjective Respiratory: + dyspnea on exertion; no cough and no dyspnea Cardiovascular: + edema; no chest pain Gastrointestinal: no abdominal pain, no nausea, no vomiting, no constipation and no diarrhea/loose stools Physical Exam Constitutional: well developed, + obese and comfortable; no acute distress Neck: trachea midline, no thyromegaly Respiratory: normal respiratory effort, lungs clear to auscultation normal respiratory effort; no respiratory distress, no labored breathing and no cough Auscultation: + diminished lung sounds; no crackles, no rales, no rhonchi and no wheezes Cardiovascular: Rate/Rhythm: regular rate and regular rhythm Heart Sounds: normal S1 and normal S2; no murmur Extremities: normal capillary refill; no edema Gastrointestinal (Abdomen): normal bowel sounds, soft, nontender, no hepatosplenomegaly Musculoskeletal: no cyanosis or clubbing, extremities motor strength 5/5 Skin: no rashes, warm and dry Neurologic: normal touch/pain/proprioception, CN's II-XI intact bilaterally, moves all extremities and awake; no focal motor deficits and not confused Psychiatric: A+Ox3, euthymic affect Results & Data Results & Data ([facility]) Vital Signs (Past 12 Hours) Vital Signs Temp Pulse Pulse Pulse Resp BP Pulse Ox 01/07/21 08:02 100 01/07/21 07:01 36.3 C L 70 18 146/55 H 100 01/07/21 04:10 36.4 C L 68 18 141/96 H 100 01/07/21 01:14 79 01/06/21 23:36 78 18 165/68 H 98 Laboratory Results Laboratory Results - last 24 hr 01/06/21 01/06/21 01/06/21 11:10 16:07 20:08 WBC RBC Hgb Hct MCV MCH MCHC RDW Std Deviation RDW Coeff of Duy Plt Count MPV Sodium Potassium Chloride Carbon Dioxide Anion Gap BUN Creatinine Est Cr Clr Drug Dosing Est GFR ( Amer) Est GFR (Non-Af Amer) BUN/Creatinine Ratio Glucose POC Glucose 226 H 241 H 247 H Calcium Phosphorus Albumin 01/07/21 01/07/21 01/07/21 07:03 07:53 07:53 WBC 10.99 H RBC 2.83 L Hgb 8.7 L Hct 26.2 L MCV 92.6 MCH 30.7 MCHC 33.2 RDW Std Deviation 47.1 H RDW Coeff of Duy 14.1 Plt Count 241 MPV 10.3 Sodium 133 L Potassium 4.4 Chloride 99 Carbon Dioxide 27 Anion Gap 8.0 BUN 127 H Creatinine 3.30 H Est Cr Clr Drug Dosing 14.9 Est GFR ( Amer) 14.7 Est GFR (Non-Af Amer) 12.6 BUN/Creatinine Ratio 38.5 H Glucose 113 H POC Glucose 108 H Calcium 9.1 Phosphorus 5.7 H Albumin 2.7 L Medications Administered Current Inpatient Medications Acetaminophen (Acetaminophen 325 Mg Tab) 650 mg PO Q4H PRN PRN Reason: Pain or Fever Stop: 01/30/21 04:32 Last Admin: 01/07/21 07:20 Dose: 650 mg Documented by: Albuterol (Albut/Ipratrop 3mg/0.5mg Neb 3 Ml Vial) 3 ml NEB Q2H PRN PRN Reason: Shortness Of Breath Stop: 02/02/21 23:44 Last Admin: 01/05/21 14:59 Dose: 3 ml Documented by: Albuterol (Albuterol Hfa 8 Gm Inhaler) 2 puffs INH Q4R PRN; Protocol PRN Reason: Shortness Of Breath Or Wheezing Stop: 02/03/21 18:59 Amlodipine Besylate (Amlodipine Besylate 5 Mg Tab) 10 mg PO [facility] Stop: 02/03/21 08:59 Last Admin: 01/07/21 07:23 Dose: 10 mg Documented by: Aspirin (Aspirin 81 Mg Ectab) [facility] [place] Stop: 01/30/21 08:59 Last Admin: 01/07/21 07:23 Dose: 81 mg Documented by: Bumetanide (Bumetanide 1 Mg Tab) 2 mg [facility] [place] Stop: 02/05/21 08:59 Last Admin: 01/07/21 07:21 Dose: 2 mg Documented by: Carvedilol (Carvedilol 25 Mg Tab) 25 mg PO BID [facility] Stop: 01/30/21 08:59 Last Admin: 01/07/21 07:23 Dose: 25 mg Documented by: Clopidogrel Bisulfate (Clopidogrel Bisulfate 75 Mg Tab) 75 [facility] [place] Stop: 01/31/21 08:59 Last Admin: 01/07/21 07:22 Dose: 75 mg Documented by: Dextrose (Dextrose 50% 50 Ml Syringe) 25 - 50 ml IV UD PRN; Protocol PRN Reason: Hypoglycemia Protocol Stop: 01/30/21 04:32 Docusate Sodium (Docusate Sodium 100 Mg Cap) 100 mg PO HS [facility] Stop: 01/30/21 20:59 Last Admin: 01/06/21 20:02 Dose: Not Given Documented by: Gabapentin (Gabapentin 100 Mg Cap) 100 mg PO TID [facility] Stop: 01/30/21 08:59 Last Admin: 01/07/21 07:22 Dose: 100 mg Documented by: Glucagon (Glucagon For Inj 1 Mg Vial) 1 mg SQ UD PRN; Protocol PRN Reason: Hypoglycemia Protocol Stop: 01/30/21 04:32 Glucose (Glucose 10 Tabs/Tube) 4 - 8 tabs PO UD PRN; Protocol PRN Reason: Hypoglycemia Protocol Stop: 01/30/21 04:32 Glucose (Glucose 40% Gel 15 Gm Tube) 15 - 30 gm PO UD PRN; Protocol PRN Reason: Hypoglycemia Protocol Stop: 01/30/21 04:32 Guaifenesin/Codeine Phosphate (Guaifenesin/Codeine 200mg/20mg 10ml Udc) 10 ml PO Q6H PRN PRN Reason: Cough Stop: 02/05/21 08:36 Last Admin: 01/06/21 09:20 Dose: 10 ml Documented by: Hydralazine HCl (Hydralazine Tab 50 Mg Tab) 100 mg PO TID [facility] Stop: 01/30/21 08:59 Last Admin: 01/07/21 07:22 Dose: 100 mg Documented by: Dexamethasone 6 mg/ Syringe 1.5 mls @ 1 mls/min IV DAILY [facility] Stop: 01/14/21 08:59 Last Admin: 01/07/21 07:47 Dose: 1 mls/min Documented by: Insulin Aspart (Insulin Aspart 100 Units/Ml 3 Ml Pen) 0 units SC ACHS [facility]; Protocol Stop: 01/30/21 07:29 Last Admin: 01/07/21 08:21 Dose: 16 units Documented by: Insulin Human NPH (Insulin Human Nph) 45 units SC QAM [facility] Stop: 02/06/21 07:59 Last Admin: 01/07/21 08:25 Dose: 45 units Documented by: Isosorbide Mononitrate (Isosorbide [place] Extended Rel 60 Mg Tabcr) 120 mg PO BID [facility] Stop: 01/30/21 08:59 Last Admin: 01/07/21 07:21 Dose: 120 mg Documented by: Loperamide HCl (Loperamide Hcl 2 Mg Cap) 2 mg PO Q4H PRN PRN Reason: Diarrhea Stop: 02/03/21 17:08 Last Admin: 01/04/21 17:17 Dose: 2 mg Documented by: Melatonin (Melatonin 3 Mg Tab) 6 mg PO HS PRN PRN Reason: Sleep Stop: 02/05/21 19:34 Last Admin: 01/06/21 21:21 Dose: 6 mg Documented by: Metoclopramide HCl (Metoclopramide Hcl 5 Mg Tablet) 5 mg PO ACHS [facility] Stop: 01/30/21 07:29 Last Admin: 01/07/21 07:21 Dose: 5 mg Documented by: Miscellaneous (Carbohydrates For Hypoglycemia ) 15 - 30 gm PO UD PRN PRN Reason: Hypoglycemia Protocol Stop: 01/30/21 04:32 Last Admin: 01/06/21 06:53 Dose: 30 gm Documented by: Miscellaneous Information (Pharmacy Glycemic Mgmt Consult) 1 ea N/A UD PRN PRN Reason: Consult Stop: 01/31/21 20:03 Nystatin (Nystatin Powder 15gm Btl) 1 appln EXT TID PRN PRN Reason: Rash Stop: 02/02/21 21:45 Ondansetron HCl (Ondansetron Inj 2 Mg/Ml 2 Ml Vial) 4 mg IV Q6H PRN PRN Reason: Nausea Stop: 01/30/21 04:32 Pantoprazole Sodium (Pantoprazole 40 Mg Tab) 40 mg PO DAILY [facility] Stop: 01/30/21 08:59 Last Admin: 01/07/21 07:22 Dose: 40 mg Documented by: Rosuvastatin Calcium (Rosuvastatin Calcium 5 Mg Tab) 5 mg PO MoTh@0900 [facility] Stop: 02/01/21 08:59 Last Admin: 01/05/21 08:46 Dose: 5 mg Documented by: Spironolactone (Spironolactone 25 Mg Tab) 50 mg PO QAM [facility] Stop: 01/30/21 08:59 Last Admin: 01/03/21 08:44 Dose: 50 mg Documented by: Tramadol HCl (Tramadol Hcl 50 Mg Tablet) 50 - 100 mg PO BID PRN PRN Reason: Pain Stop: 01/30/21 04:32 Last Admin: 01/07/21 02:33 Dose: 50 mg Documented by: PG Care Time/CCT Total # of Minutes Spent Total Time Spent with Patient: Total time spent is greater than 50% in coordination of care (as documented) at patient's floor/unit and/or counseling patient: Coding Level of Care Code 98681 Subseq Hosp Care Lvl 3 Diagnoses COVID-19 U07.1 Pneumonia J18.9 Troponin level elevated R77.8 Congestive heart failure I50.9 Heart failure chronicity: unspecified Heart failure type: unspecified Diabetes mellitus with hyperglycemia E11.65 CKD (chronic kidney disease) stage 4, GFR 15-29 ml/min N18.4 CAD (coronary artery disease) I25.10 Hypertension I10 Hyperlipidemia E78.5 GERD (gastroesophageal reflux disease) K21.9 (1) Congestive heart failure Heart failure chronicity: unspecified Heart failure type: unspecified Qualified Code(s): I50.9 - Heart failure, unspecified
--- NOTE | 2021-01-07 11:30 | Nephrology Progress Note ---
Date of Service January 07, 2021 Assessment & Plan (1) ELEAZAR (acute kidney injury): Plan: Creatinine remains stable. Electrolytes acceptable. Adequate urine output in response to Bumex. There is no emergent indication for dialysis. Treva is nonoliguric. Aldactone has been held. Medications appropriately for kidney function. Continue diuretics to encourage to slightly negative fluid balance. Repeat metabolic profile tomorrow AM. Document strict I/O's and daily weight. (2) Pneumonia due to COVID-19 virus: Plan: Remdesivir contraindicated due to renal dysfunction. Currently being treated with Decadron which contributes to increasing azotemia. Symptomatic improvement noted. (3) Acute respiratory failure with hypoxia: Plan: Continue Bumex to encourage slightly negative fluid balance. Remains on 2 mg PO daily today. (4) CKD (chronic kidney disease) stage 4, GFR 15-29 ml/min: Plan: Follows with Dr. Andrade as an outpatient. No emergent indication for renal placement therapy. Baseline creatinine 2.5 mg/dL. (5) Anemia: Plan: Iron profile acceptable. Epogen 60763 units SQ provided today. Admission and Anticipated Discharge Date Admission Date: December 31, 2020 Subjective No acute events overnight. I did not physically seen Treva today due to COVID. I discussed her status with Dr. Gonzalez. Review of Systems Review of Systems: All systems reviewed & are unremarkable except as noted in HPI & below Physical Exam Physical Exam: Deferred due to COVID Results & Data ([facility]) Vital Signs (Past 12 Hours) Vital Signs Temp Pulse Pulse Pulse Resp BP Pulse Ox 01/07/21 08:44 69 01/07/21 08:02 100 01/07/21 07:01 36.3 C L 70 18 146/55 H 100 01/07/21 04:10 36.4 C L 68 18 141/96 H 100 01/07/21 01:14 79 01/06/21 23:36 78 18 165/68 H 98 Laboratory Results Laboratory Results - last 24 hr 01/06/21 01/06/21 01/07/21 16:07 20:08 07:03 WBC RBC Hgb Hct MCV MCH MCHC RDW Std Deviation RDW Coeff of Duy Plt Count MPV Sodium Potassium Chloride Carbon Dioxide Anion Gap BUN Creatinine Est Cr Clr Drug Dosing Est GFR ( Amer) Est GFR (Non-Af Amer) BUN/Creatinine Ratio Glucose POC Glucose 241 H 247 H 108 H Calcium Phosphorus Albumin 01/07/21 01/07/21 01/07/21 07:53 07:53 11:13 WBC 10.99 H RBC 2.83 L Hgb 8.7 L Hct 26.2 L MCV 92.6 MCH 30.7 MCHC 33.2 RDW Std Deviation 47.1 H RDW Coeff of Duy 14.1 Plt Count 241 MPV 10.3 Sodium 133 L Potassium 4.4 Chloride 99 Carbon Dioxide 27 Anion Gap 8.0 BUN 127 H Creatinine 3.30 H Est Cr Clr Drug Dosing 14.9 Est GFR ( Amer) 14.7 Est GFR (Non-Af Amer) 12.6 BUN/Creatinine Ratio 38.5 H Glucose 113 H POC Glucose 242 H Calcium 9.1 Phosphorus 5.7 H Albumin 2.7 L PG Care Time/CCT Total # of Minutes Spent Total Time Spent with Patient: Total time spent is greater than 50% in coordination of care (as documented) at patient's floor/unit and/or counseling patient: Coding Level of Care Code 53358 Subseq Hosp Care Lvl 3 Diagnoses ELEAZAR (acute kidney injury) N17.9 Pneumonia due to COVID-19 virus U07.1; J12.82 Acute respiratory failure with hypoxia J96.01 CKD (chronic kidney disease) stage 4, GFR 15-29 ml/min N18.4 Anemia D64.9
--- NOTE | 2021-01-07 15:05 | Pharmacy Report ---
Pharmacy Glycemic Short Note 2 - Date of Service January 07, 2021 - Glycemic Short BSG Results (Last 24 hours): 01/06/21 01/06/21 01/07/21 16:07 20:08 07:03 Glucose POC Glucose 241 H 247 H 108 H 01/07/21 01/07/21 07:53 11:13 Glucose 113 H POC Glucose 242 H OUTPATIENT ANTIDIABETIC REGIMEN: * Basaglar 30 units SC HS * Novolog 13 units TIDM ASSESSMENT: 01/07 * Pt has received 89 units of insulin over the past 24hrs * 35 units of basal with NPH * 54 units of bolus with NovoLog * BSGs 108-226 mg/dl * Fasting 108mg/dl, improved with discontinuing Lantus and only using NPH for basal insulin once daily * Blood sugars still high throughout the day, increase NPH and tighten CF/CR 01/06 * Severe AM hypoglycemia noted this AM with BSG of 43 mg/dL, despite no changes to basal insulin regimen yesterday (and 6 units of correctional insulin required overnight from 01/04 to 01/05). Etiology is likely Lantus, especially when given in combination with NPH * Post-prandial BSG's all still elevated >180 mg/dL yesterday, however * Will suspend Lantus for today due to severity of hypoglycemia this AM. OK to add back a little NPH with lunch now that BSG has rebounded substantially. * Will tighten CHO ratio 01/05 * Post-prandial BSG still significantly elevated last night so tightened CHO ratio again at breakfast * AM fasting BSG good - continue Lantus and NPH as-is 01/04 * Patients BSGs trending upward with addition of steroids/worsening oxygen requirements yesterday * Fasting this morning 184 mg/dL- received steroid overnight and changed to dexamethasone, patient originally NPO this morning, ordered NPH when diet started * Lunch BSG elevated into the 300s, however patient had late breakfast and NPH was not given until ~1100, therefore will monitor this evening's doses for further changes. 01/02 * Patient received total of 70 units of insulin yesterday, of which 33 units were basal insulin * Fasting BSG 107 mg/dL - plan to continue same basal insulin * Continue same CF/CR 01/01 * 80 yo F w hx severe hypoglycemia admitted 12/31 for hyperglycemia. Pharmacy consulted on 01/01 * Post-prandial BSG's significantly elevated >200 mg/dL for 5 of the last 6 checks. Will tighten CHO ratio. Will also slightly tighten correction factor * AM fasting BSG slightly above goal. Will increase Lantus slightly by 20% * One overnight check PLAN FOR INPATIENT GLYCEMIC CONTROL: * Basal insulin * NPH 45 units SC qAM (given with dexamethasone) * Bolus insulin * NovoLog per scale ACHS or Q6hrs while NPO * Goal Range: Low 110 mg/dL - High 140 mg/dL * Correction Factor: 10 mg/dL/unit * Nutritional / Prandial insulin per carb ratio of 1 unit per 2 grams CHO consumed PLAN FOR DISCHARGE: * A1C 7.5% - goal <8% is reasonable for patient * As long as patient is not discharged on steroids and as long as patient is not experiencing frequent hypoglycemia at home, would recommend continuation of home Basaglar/Novolog
[2021-01-07] MEDS: DOCUSATE SODIUM 100 MG CAP PO SCH (20:35)
[2021-01-07] MEDS: MELATONIN 3 MG TAB PO PRN (22:35)
[2021-01-08] MEDS: CARBOHYDRATES FOR HYPOGLYCEMIA PO PRN (07:25)
[2021-01-08] MEDS: hydrALAZINE TAB 50 MG TAB PO SCH ×3 (07:47→20:34)
[2021-01-08] MEDS: carvediloL 25 MG TAB PO SCH ×2 (07:47→20:35)
[2021-01-08] MEDS: ISOSORBIDE MONO EXTENDED REL 60 MG TABCR PO SCH ×2 (07:47→20:37)
[2021-01-08] MEDS: BUMETANIDE 1 MG TAB PO SCH (07:48)
[2021-01-08] MEDS: METOCLOPRAMIDE HCL 5 MG TABLET PO SCH ×4 (07:48→20:36)
[2021-01-08] MEDS: amLODIPine BESYLATE 5 MG TAB PO SCH (07:48)
[2021-01-08] MEDS: GABAPENTIN 100 MG CAP PO SCH ×3 (07:48→20:35)
[2021-01-08] MEDS: PANTOprazole 40 MG TAB PO SCH (07:48)
[2021-01-08] MEDS: CLOPIDOGREL BISULFATE 75 MG TAB PO SCH (07:48)
[2021-01-08] MEDS: ASPIRIN 81 MG ECTAB PO SCH (07:49)
[2021-01-08] MEDS: INSULIN HUMAN NPH SC SCH (07:50)
[2021-01-08] MEDS: dexAMETHasone 6 MG in SYRINGE 0 ML IV SCH (07:50)
[2021-01-08] MEDS: ACETAMINOPHEN 325 MG TAB PO PRN (07:57)
[2021-01-08] MEDS: INSULIN ASPART 100 UNITS/ML 3 ML PEN SC SCH ×5 (08:21→20:47)
[2021-01-08 09:17] LABS: Hematocrit (blood only) 26.9 % (37-47); Hemoglobin 8.6 g/dL (12.0-16.0); Mean Corpuscular Hemoglobin 30.2 pg (25-34); Mean Corpuscular Volume 94.4 fL (80-100); Mean Platelet Volume 10.4 fL (7.4-10.4); Nucleated RBC # (auto) 0.07 K/uL (0-0); Nucleated RBC % (auto) 0.6 %; Platelet Count 246 K/uL (130-400); RDW Coefficient of Variation 14.1 % (11.5-14.5); RDW Standard Deviation 48.1 fL (36.4-46.3); Red Blood Count 2.85 M/uL (4.2-5.4); White Blood Count 11.21 K/uL (4.8-10.8)
--- NOTE | 2021-01-08 09:29 | Hospitalist Progress Note ---
Date of Service January 08, 2021 Assessment & Plan (1) COVID-19: Plan: initially tested negative on admission, repeat test 01/04 POSITIVE appearance of viral pneumonia on imaging of chest Dexamethasone 6mg IV daily, day 5 cannot get Remdesivir due to renal failure no need for further antibiotics, no signs of bacterial infection acute hypoxic respiratory failure, due to pneumonia placed on BIPAP night of 01/04 responded well now on 2L for 48 hours, very stable, feels well use the BIPAP every night and as needed for naps during the day prognosis steadily improving, less oxygen required and Cr coming down slightly to 3.0 (2) Pneumonia: Plan: 80yo female with multiple medical comorbidities presenting with SOB as well as productive cough, orthopnea, weight gain. Elevated WBC, CT findings concerning for infectious process. Covid-19 was negative, now POSITIVE on 01/04 -Supplemental O2 as needed to maintain saturations >92%, on 2L right now but was stable on room air for a short while this morning which is good sign dexamethasone 6mg IV daily day 5 today -Continue Albuterol PRN add flutter valve and incentive spirometer to get her expanding lungs PT/OT evaluations, she lives alone at home (3) Troponin level elevated: Plan: - Pt clinically asymptomatic, no chest pain at assessment - EKG on admission with lateral ST depressions - Troponin elevated from 0.258 to 5.420, downtrending on repeat - Repeat EKG with improvement in lateral ischemic changes, appears near prior baseline. - prior hospitalist discussed with cardiology. Likely demand ischemia in the setting of underlying cardiac disease with superimposed PNA, COVID 19 infection continue plavix (previously on hold pending ortho hip injection) - TTE as noted in CHF (4) Congestive heart failure: Plan: - Patient with history of CHF. Dry weight initially thought to be 200 but closer to 210-214lbs - BNP elevated - Follows with Dr. Barlow, last seen 12/11/20 as well as Caridad Herrera in the Heart Failure clinic - Last echo with EF ~45%, moderate concentric LVH, grade II diastolic dysfun ction, mild LA/RA dilation. Repeat TTE ef 60-65%, no wall motion abnormalities, - continue Bumex 2mg PO daily BMP daily, Cr is 3.0, negative fluid balance some pitting edema in ankles still -Continue home medications - Carvedilol, Hydralazine, Isosorbide mononitrate, resume Spironolactone (5) Diabetes mellitus with hyperglycemia: Plan: - Elevated blood sugar to 403 at admit. - On admit B-HB present but no anion gap - Lantus 15u BID, ISS. - Goal blood sugar 140 - 180 while inpatient - CC diet as tolerated - Continue Reglan Pharmacy glycemic consult placed given patient's history of hypoglycemia and fluctuating requirements hypoglycemic this morning, 60's, no symptoms, defer to pharmacy who is managing (6) CKD (chronic kidney disease) stage 4, GFR 15-29 ml/min: Plan: Acute kidney injury on CKD stage 4 - Cr is stable, down to 3.0 today, resumed Bumex but at 2mg and resumed spironolactone 50mg -Avoid nephrotoxic agents -Renal dosing where needed appreciate nephrology consult from Dr. Nickerson (7) CAD (coronary artery disease): Plan: - Patient with longstanding history of CAD with stable angina. She follows with Dr. Barlow -Continue ASA -Plavix reportedly on hold as she is to have an injection soon in her hip. Restarted 2/2 elevated troponin per discussion with cardiology, continue until troponins down trended and patient no longer ill. Can reassess injection at that time -Continue Crestor -Continue Carvedilol -Opponent peaked, down trended (8) Hypertension: Plan: Blood pressure 130's systolic increased Norvasc to 10mg 01/06, continue other home meds -Continue to monitor (9) Hyperlipidemia: Plan: Chronic -Continue Crestor (10) GERD (gastroesophageal reflux disease): Plan: Chronic -Continue Protonix Plan: treat with dexamethasone, wean oxygen as tolerated daily labs anticipate she may need rehab if not strong enough to go home, likely here a few more days to monitor oxygen levels and renal function Ppx - Heparin Code - DNR/DNI per discussion with patient Dispo - continue PCU, COVID unit Admission and Anticipated Discharge Date Admission Date: December 31, 2020 Subjective patient looks great, feels great, on 2L NC, no distress at all, minimal cough eating well, had a solid BM today, caldwell catheter in place Cr is 3.7, BUN 133 glucose low this morning, 60's, no symptoms, will have pharmacy adjust discussed goals to get off of oxygen, work with therapy, might need rehab before going home Review of Systems Review of Systems: All systems reviewed & are unremarkable except as noted in Subjective Respiratory: + dyspnea on exertion; no cough and no dyspnea Cardiovascular: + edema; no chest pain Physical Exam Constitutional: well developed, + obese and comfortable; no acute distress Neck: trachea midline, no thyromegaly Respiratory: normal respiratory effort, lungs clear to auscultation normal respiratory effort; no respiratory distress, no labored breathing and no cough Auscultation: + diminished lung sounds; no crackles, no rales, no rhonchi and no wheezes Cardiovascular: Rate/Rhythm: regular rate and regular rhythm Heart Sounds: normal S1 and normal S2; no murmur Extremities: normal capillary refill and + edema (pitting, ankles bilaterally) Gastrointestinal (Abdomen): normal bowel sounds, soft, nontender, no hepatosplenomegaly Musculoskeletal: no cyanosis or clubbing, extremities motor strength 5/5 Skin: no rashes, warm and dry Neurologic: normal touch/pain/proprioception, CN's II-XI intact bilaterally, moves all extremities and awake; no focal motor deficits and not confused Psychiatric: A+Ox3, euthymic affect Results & Data Results & Data ([facility]) Vital Signs (Past 12 Hours) Vital Signs Temp Pulse Pulse Resp BP Pulse Ox 01/08/21 07:22 36.6 C 67 13 136/50 L 97 01/08/21 04:33 36.9 C 67 17 133/54 L 97 01/08/21 00:00 79 01/07/21 22:28 36.5 C 77 17 165/65 H 96 Laboratory Results Laboratory Results - last 24 hr 01/07/21 01/07/21 01/07/21 11:13 16:04 19:57 WBC RBC Hgb Hct MCV MCH MCHC RDW Std Deviation RDW Coeff of Duy Plt Count MPV Absolute Nucleated RBC Nucleated RBC % (auto) Sodium Potassium Chloride Carbon Dioxide Anion Gap BUN Creatinine Est Cr Clr Drug Dosing Est GFR ( Amer) Est GFR (Non-Af Amer) BUN/Creatinine Ratio Glucose POC Glucose 242 H 220 H 190 H Calcium Phosphorus Albumin 01/08/21 01/08/21 01/08/21 07:15 07:15 07:19 WBC 11.21 H RBC 2.85 L Hgb 8.6 L Hct 26.9 L MCV 94.4 MCH 30.2 MCHC 32.0 RDW Std Deviation 48.1 H RDW Coeff of Duy 14.1 Plt Count 246 MPV 10.4 Absolute Nucleated RBC 0.07 H Nucleated RBC % (auto) 0.6 Sodium 137 Potassium 4.5 Chloride 100 Carbon Dioxide 27 Anion Gap 10.0 BUN 133 H Creatinine 3.07 H Est Cr Clr Drug Dosing 16.2 Est GFR ( Amer) 16.0 Est GFR (Non-Af Amer) 13.8 BUN/Creatinine Ratio 43.4 H Glucose 87 POC Glucose 64 L* Calcium 9.3 Phosphorus 6.0 H Albumin 2.6 L 01/08/21 07:43 WBC RBC Hgb Hct MCV MCH MCHC RDW Std Deviation RDW Coeff of Duy Plt Count MPV Absolute Nucleated RBC Nucleated RBC % (auto) Sodium Potassium Chloride Carbon Dioxide Anion Gap BUN Creatinine Est Cr Clr Drug Dosing Est GFR ( Amer) Est GFR (Non-Af Amer) BUN/Creatinine Ratio Glucose POC Glucose 88 Calcium Phosphorus Albumin Medications Administered Current Inpatient Medications Acetaminophen (Acetaminophen 325 Mg Tab) 650 mg PO Q4H PRN PRN Reason: Pain or Fever Stop: 01/30/21 04:32 Last Admin: 01/08/21 07:57 Dose: 650 mg Documented by: Albuterol (Albut/Ipratrop 3mg/0.5mg Neb 3 Ml Vial) 3 ml NEB Q2H PRN PRN Reason: Shortness Of Breath Stop: 02/02/21 23:44 Last Admin: 01/05/21 14:59 Dose: 3 ml Documented by: Albuterol (Albuterol Hfa 8 Gm Inhaler) 2 puffs INH Q4R PRN; Protocol PRN Reason: Shortness Of Breath Or Wheezing Stop: 02/03/21 18:59 Amlodipine Besylate (Amlodipine Besylate 5 Mg Tab) [facility] [place] Stop: 02/03/21 08:59 Last Admin: 01/08/21 07:48 Dose: 10 mg Documented by: Aspirin (Aspirin 81 Mg Ectab) 81 [facility] [place] Stop: 01/30/21 08:59 Last Admin: 01/08/21 07:49 Dose: 81 mg Documented by: Bumetanide (Bumetanide 1 Mg Tab) 2 [facility] [place] Stop: 02/05/21 08:59 Last Admin: 01/08/21 07:48 Dose: 2 mg Documented by: Carvedilol (Carvedilol 25 Mg Tab) 25 mg PO BID [facility] Stop: 01/30/21 08:59 Last Admin: 01/08/21 07:47 Dose: 25 mg Documented by: Clopidogrel Bisulfate (Clopidogrel Bisulfate 75 Mg Tab) 75 mg PO QAM [facility] Stop: 01/31/21 08:59 Last Admin: 01/08/21 07:48 Dose: 75 mg Documented by: Dextrose (Dextrose 50% 50 Ml Syringe) 25 - 50 ml IV UD PRN; Protocol PRN Reason: Hypoglycemia Protocol Stop: 01/30/21 04:32 Docusate Sodium (Docusate Sodium 100 Mg Cap) 100 mg PO HS [facility] Stop: 01/30/21 20:59 Last Admin: 01/07/21 20:35 Dose: 100 mg Documented by: Gabapentin (Gabapentin 100 Mg Cap) 100 mg PO TID [facility] Stop: 01/30/21 08:59 Last Admin: 01/08/21 07:48 Dose: 100 mg Documented by: Glucagon (Glucagon For Inj 1 Mg Vial) 1 mg SQ UD PRN; Protocol PRN Reason: Hypoglycemia Protocol Stop: 01/30/21 04:32 Glucose (Glucose 10 Tabs/Tube) 4 - 8 tabs PO UD PRN; Protocol PRN Reason: Hypoglycemia Protocol Stop: 01/30/21 04:32 Glucose (Glucose 40% Gel 15 Gm Tube) 15 - 30 gm PO UD PRN; Protocol PRN Reason: Hypoglycemia Protocol Stop: 01/30/21 04:32 Guaifenesin/Codeine Phosphate (Guaifenesin/Codeine 200mg/20mg 10ml Udc) 10 ml PO Q6H PRN PRN Reason: Cough Stop: 02/05/21 08:36 Last Admin: 01/06/21 09:20 Dose: 10 ml Documented by: Hydralazine HCl (Hydralazine Tab 50 Mg Tab) 100 mg PO TID [facility] Stop: 01/30/21 08:59 Last Admin: 01/08/21 07:47 Dose: 100 mg Documented by: Dexamethasone 6 mg/ Syringe 1.5 mls @ 1 mls/min IV DAILY [facility] Stop: 01/14/21 08:59 Last Admin: 01/08/21 07:50 Dose: 1 mls/min Documented by: Insulin Aspart (Insulin Aspart 100 Units/Ml 3 Ml Pen) 0 units SC AC [facility]; Protoc ol Stop: 02/07/21 07:44 Last Admin: 01/08/21 09:26 Dose: 22 units Documented by: Insulin Aspart (Insulin Aspart 100 Units/Ml 3 Ml Pen) [address] [facility]; Protocol Stop: 02/07/21 20:59 Insulin Human NPH (Insulin Human Nph) 45 [facility] SC [facility] [place] Stop: 02/06/21 07:59 Last Admin: 01/08/21 07:50 Dose: 45 units Documented by: Isosorbide Mononitrate (Isosorbide [place] Extended Rel 60 Mg Tabcr) 120 mg PO BID [facility] Stop: 01/30/21 08:59 Last Admin: 01/08/21 07:47 Dose: 120 mg Documented by: Loperamide HCl (Loperamide Hcl 2 Mg Cap) 2 mg PO Q4H PRN PRN Reason: Diarrhea Stop: 02/03/21 17:08 Last Admin: 01/04/21 17:17 Dose: 2 mg Documented by: Melatonin (Melatonin 3 Mg Tab) 6 mg PO HS PRN PRN Reason: Sleep Stop: 02/05/21 19:34 Last Admin: 01/07/21 22:35 Dose: 6 mg Documented by: Metoclopramide HCl (Metoclopramide Hcl 5 Mg Tablet) 5 mg PO [facility] Stop: 01/30/21 07:29 Last Admin: 01/08/21 07:48 Dose: 5 mg Documented by: Miscellaneous (Carbohydrates For Hypoglycemia ) 15 - 30 gm PO UD PRN PRN Reason: Hypoglycemia Protocol Stop: 01/30/21 04:32 Last Admin: 01/08/21 07:25 Dose: 15 gm Documented by: Miscellaneous Information (Pharmacy Glycemic Mgmt Consult) 1 ea N/A UD PRN PRN Reason: Consult Stop: 01/31/21 20:03 Nystatin (Nystatin Powder 15gm Btl) 1 appln EXT TID PRN PRN Reason: Rash Stop: 02/02/21 21:45 Ondansetron HCl (Ondansetron Inj 2 Mg/Ml 2 Ml Vial) 4 mg IV Q6H PRN PRN Reason: Nausea Stop: 01/30/21 04:32 Pantoprazole Sodium (Pantoprazole 40 Mg Tab) 40 mg PO DAILY [facility] Stop: 01/30/21 08:59 Last Admin: 01/08/21 07:48 Dose: 40 mg Documented by: Rosuvastatin Calcium (Rosuvastatin Calcium 5 Mg Tab) 5 mg PO MoTh@0900 [facility] Stop: 02/01/21 08:59 Last Admin: 01/05/21 08:46 Dose: 5 mg Documented by: Spironolactone (Spironolactone 25 Mg Tab) 50 mg PO QAM [facility] Stop: 01/30/21 08:59 Last Admin: 01/03/21 08:44 Dose: 50 mg Documented by: Tramadol HCl (Tramadol Hcl 50 Mg Tablet) 50 - 100 mg PO BID PRN PRN Reason: Pain Stop: 01/30/21 04:32 Last Admin: 01/07/21 22:35 Dose: 50 mg Documented by: PG Care Time/CCT Total # of Minutes Spent Total Time Spent with Patient: Total time spent is greater than 50% in coordination of care (as documented) at patient's floor/unit and/or counseling patient: Coding Level of Care Code 41823 Subseq Hosp Care Lvl 3 Diagnoses COVID-19 U07.1 Pneumonia J18.9 Troponin level elevated R77.8 Congestive heart failure I50.9 Heart failure chronicity: unspecified Heart failure type: unspecified Diabetes mellitus with hyperglycemia E11.65 CKD (chronic kidney disease) stage 4, GFR 15-29 ml/min N18.4 CAD (coronary artery disease) I25.10 Hypertension I10 Hyperlipidemia E78.5 GERD (gastroesophageal reflux disease) K21.9 (1) Congestive heart failure Heart failure chronicity: unspecified Heart failure type: unspecified Q ualified Code(s): I50.9 - Heart failure, unspecified
[2021-01-08 09:38] LABS: Albumin Level 2.6 gm/dl (3.4-5.0); BUN Creatinine Ratio 43.4 (10-20); Calcium 9.3 mg/dl (8.5-10.1); Creatinine Clr Calc Pharmacy 16.2 ml/min; Est GFR (Non-African American) 13.8 ml/min; Potassium 4.5 mmol/L (3.5-5.1)
--- NOTE | 2021-01-08 11:26 | Pharmacy Report ---
Pharmacy Glycemic Short Note 2 - Date of Service January 08, 2021 - Glycemic Short BSG Results (Last 24 hours): 01/07/21 01/07/21 01/08/21 16:04 19:57 07:15 Glucose 87 POC Glucose 220 H 190 H 01/08/21 01/08/21 07:19 07:43 Glucose POC Glucose 64 L* 88 OUTPATIENT ANTIDIABETIC REGIMEN: * Basaglar 30 units SC HS * Novolog 13 units TIDM ASSESSMENT: 01/08 * Pt has received 141 units of insulin over the past 24hrs * 45 units of NPH for basal/steroid induced hyperglycemia from dexamethasone * 96 units of bolus with NovoLog * BSGs [phone] mg/dl * Pt with LOW BSG this AM. Likely from large dose of Novolog given at HS. HS to AM BSG tends to drop significantly- 24hr basal insulin likely not needed based on A1c. Will continue with NPH at current dosing for steroids since daytime BSGs elevated. Will loosen HS parameters of NovoLog to prevent LOW tomorrow. 01/07 * Pt has received 89 units of insulin over the past 24hrs * 35 units of basal with NPH * 54 units of bolus with NovoLog * BSGs 108-226 mg/dl * Fasting 108mg/dl, improved with discontinuing Lantus and only using NPH for basal insulin once daily * Blood sugars still high throughout the day, increase NPH and tighten CF/CR 01/06 * Severe AM hypoglycemia noted this AM with BSG of 43 mg/dL, despite no changes to basal insulin regimen yesterday (and 6 units of correctional insulin required overnight from 01/04 to 01/05). Etiology is likely Lantus, especially when given in combination with NPH * Post-prandial BSG's all still elevated >180 mg/dL yesterday, however * Will suspend Lantus for today due to severity of hypoglycemia this AM. OK to add back a little NPH with lunch now that BSG has rebounded substantially. * Will tighten CHO ratio 01/05 * Post-prandial BSG still significantly elevated last night so tightened CHO ratio again at breakfast * AM fasting BSG good - continue Lantus and NPH as-is 01/04 * Patients BSGs trending upward with addition of steroids/worsening oxygen requirements yesterday * Fasting this morning 184 mg/dL- received steroid overnight and changed to dexamethasone, patient originally NPO this morning, ordered NPH when diet started * Lunch BSG elevated into the 300s, however patient had late breakfast and NPH was not given until ~1100, therefore will monitor this evening's doses for further changes. 01/02 * Patient received total of 70 units of insulin yesterday, of which 33 units were basal insulin * Fasting BSG 107 mg/dL - plan to continue same basal insulin * Continue same CF/CR 01/01 * 80 yo F w hx severe hypoglycemia admitted 12/31 for hyperglycemia. Pharmacy consulted on 01/01 * Post-prandial BSG's significantly elevated >200 mg/dL for 5 of the last 6 checks. Will tighten CHO ratio. Will also slightly tighten correction factor * AM fasting BSG slightly above goal. Will increase Lantus slightly by 20% * One overnight check PLAN FOR INPATIENT GLYCEMIC CONTROL: * Basal insulin * NPH 45 units SC qAM (given with dexamethasone) * Bolus insulin: loosen HS parameters * NovoLog per scale ACHS or Q6hrs while NPO * Goal Range: Low 110 mg/dL - High 140 mg/dL * Correction Factor: 10 mg/dL/unit (change to 15 for HS only) * Nutritional / Prandial insulin per carb ratio of 1 unit per 2 grams CHO consumed (change to 4 at HS only) PLAN FOR DISCHARGE: * A1C 7.5% - goal <8% is reasonable for patient * As long as patient is not discharged on steroids and as long as patient is not experiencing frequent hypoglycemia at home, would recommend continuation of home Basaglar/Novolog
--- NOTE | 2021-01-08 12:19 | Nephrology Progress Note ---
Date of Service January 08, 2021 Assessment & Plan (1) ELEAZAR (acute kidney injury): Plan: Creatinine remains stable. Electrolytes acceptable. Adequate urine output in response to Bumex. There is no emergent indication for dialysis. Treva is nonoliguric. Aldactone has been held. Medications appropriately for kidney function. Maintain even to slightly negative fluid balance. Monitor metabolic profile daily while inpatient. Document strict I/O's and daily weight. No additional recommendations from nephrology at this time. We will follow peripherally. Please call with questions or concerns. Close outpatient follow up can be arranged at discharge. (2) Pneumonia due to COVID-19 virus: Plan: Clinically improving with treatment with Decadron. Noted increasing azotemia attributed to therapy. (3) Acute respiratory failure with hypoxia: Plan: Remains on Bumex 2 mg daily. Goal is to encourage even or slightly negative da keegan fluid balance. (4) CKD (chronic kidney disease) stage 4, GFR 15-29 ml/min: Plan: Follows with Dr. Andrade as an outpatient. No emergent indication for renal placement therapy. Baseline creatinine 2.5 mg/dL. (5) Anemia: Plan: Iron profile acceptable. Epogen 24466 units SQ provided 01/07. Admission and Anticipated Discharge Date Admission Date: December 31, 2020 Beth Tilley was not physically seen due to COVID. She has noted continued overall improvement. No complaints or concerns today. Review of Systems Review of Systems: All systems reviewed & are unremarkable except as noted in HPI & below Physical Exam Physical Exam: Deferred due to COVID Results & Data [facility]) Vital Signs (Past 12 Hours) Vital Signs Temp Pulse Pulse Resp BP Pulse Ox 01/08/21 11:49 36.5 C 62 22 145/52 H 100 01/08/21 07:22 36.6 C 67 13 136/50 L 97 01/08/21 07:00 66 01/08/21 04:33 36.9 C 67 17 133/54 L 97 Laboratory Results Laboratory Results - last 24 hr 01/07/21 01/07/21 01/08/21 16:04 19:57 07:15 WBC 11.21 H RBC 2.85 L Hgb 8.6 L Hct 26.9 L MCV 94.4 MCH 30.2 MCHC 32.0 RDW Std Deviation 48.1 H RDW Coeff of Duy 14.1 Plt Count 246 MPV 10.4 Absolute Nucleated RBC 0.07 H Nucleated RBC % (auto) 0.6 Sodium Potassium Chloride Carbon Dioxide Anion Gap BUN Creatinine Est Cr Clr Drug Dosing Est GFR ( Amer) Est GFR (Non-Af Amer) BUN/Creatinine Ratio Glucose POC Glucose 220 H 190 H Calcium Phosphorus Albumin 01/08/21 01/08/21 01/08/21 07:15 07:19 07:43 WBC RBC Hgb Hct MCV MCH MCHC RDW Std Deviation RDW Coeff of Duy Plt Count MPV Absolute Nucleated RBC Nucleated RBC % (auto) Sodium 137 Potassium 4.5 Chloride 100 Carbon Dioxide 27 Anion Gap 10.0 BUN 133 H Creatinine 3.07 H Est Cr Clr Drug Dosing 16.2 Est GFR ( Amer) 16.0 Est GFR (Non-Af Amer) 13.8 BUN/Creatinine Ratio 43.4 H Glucose 87 POC Glucose 64 L* 88 Calcium 9.3 Phosphorus 6.0 H Albumin 2.6 L 01/08/21 11:40 WBC RBC Hgb Hct MCV MCH MCHC RDW Std Deviation RDW Coeff of Duy Plt Count MPV Absolute Nucleated RBC Nucleated RBC % (auto) Sodium Potassium Chloride Carbon Dioxide Anion Gap BUN Creatinine Est Cr Clr Drug Dosing Est GFR ( Amer) Est GFR (Non-Af Amer) BUN/Creatinine Ratio Glucose POC Glucose 128 H Calcium Phosphorus Albumin PG Care Time/CCT Total # of Minutes Spent Total Time Spent with Patient: Total time spent is greater than 50% in coordination of care (as documented) at patient's floor/unit and/or counseling patient: Coding Level of Care Code 27050 Subseq Hosp Care Lvl 3 Diagnoses ELEAZAR (acute kidney injury) N17.9 Pneumonia due to COVID-19 virus U07.1; J12.82 Acute respiratory failure with hypoxia J96.01 CKD (chronic kidney disease) stage 4, GFR 15-29 ml/min N18.4 Anemia D64.9
[2021-01-08] MEDS: DOCUSATE SODIUM 100 MG CAP PO SCH (20:40)
[2021-01-08] MEDS: traMADol HCL 50 MG TABLET PO PRN (23:46)
[2021-01-08] MEDS: MELATONIN 3 MG TAB PO PRN (23:49)
[2021-01-09] MEDS: INSULIN ASPART 100 UNITS/ML 3 ML PEN SC SCH ×4 (00:45→17:57)
[2021-01-09] MEDS: ACETAMINOPHEN 325 MG TAB PO PRN (06:10)
[2021-01-09] MEDS: traMADol HCL 50 MG TABLET PO PRN ×2 (08:40→21:58)
[2021-01-09] MEDS: METOCLOPRAMIDE HCL 5 MG TABLET PO SCH ×4 (08:41→21:24)
[2021-01-09] MEDS: BUMETANIDE 1 MG TAB PO SCH (08:41)
[2021-01-09] MEDS: amLODIPine BESYLATE 5 MG TAB PO SCH (08:42)
[2021-01-09] MEDS: ISOSORBIDE MONO EXTENDED REL 60 MG TABCR PO SCH ×2 (08:42→21:24)
[2021-01-09] MEDS: ASPIRIN 81 MG ECTAB PO SCH (08:43)
[2021-01-09] MEDS: dexAMETHasone 6 MG in SYRINGE 0 ML IV SCH (08:43)
[2021-01-09] MEDS: GABAPENTIN 100 MG CAP PO SCH ×3 (08:43→21:25)
[2021-01-09] MEDS: PANTOprazole 40 MG TAB PO SCH (08:43)
[2021-01-09] MEDS: hydrALAZINE TAB 50 MG TAB PO SCH ×3 (08:43→21:24)
[2021-01-09] MEDS: CLOPIDOGREL BISULFATE 75 MG TAB PO SCH (08:44)
[2021-01-09] MEDS: carvediloL 25 MG TAB PO SCH ×2 (08:45→21:24)
[2021-01-09] MEDS: INSULIN HUMAN NPH SC SCH (09:22)
--- NOTE | 2021-01-09 20:56 | Hospitalist Progress Note ---
Date of Service January 09, 2021 Assessment & Plan (1) COVID-19: Plan: initially tested negative on admission, repeat test 01/04 POSITIVE appearance of viral pneumonia on imaging of chest Dexamethasone 6mg IV daily, day 6 cannot get Remdesivir due to renal failure no need for further antibiotics, no signs of bacterial infection acute hypoxic respiratory failure, due to pneumonia placed on BIPAP night of 01/04 responded well now on 2L for 48 hours, very stable, feels well Today intermittently on room air use the BIPAP every night and as needed for naps during the day prognosis steadily improving, less oxygen required and Cr coming down slightly to 3.0 (2) Pneumonia: Plan: 80yo female with multiple medical comorbidities presenting with SOB as well as productive cough, orthopnea, weight gain. Elevated WBC, CT findings concerning for infectious process. Covid-19 was negative, now POSITIVE on 01/04 -Supplemental O2 as needed to maintain saturations >92%, on 2L right now but was stable on room air for a short while this morning which is good sign dexamethasone 6mg IV daily day 5 today -Continue Albuterol PRN add flutter valve and incentive spirometer to get her expanding lungs PT/OT evaluations, she lives alone at home (3) Troponin level elevated: Plan: - Pt clinically asymptomatic, no chest pain at assessment - EKG on admission with lateral ST depressions - Troponin elevated from 0.258 to 5.420, downtrending on repeat - Repeat EKG with improvement in lateral ischemic changes, appears near prior baseline. - prior hospitalist discussed with cardiology. Likely demand ischemia in the setting of underlying cardiac disease with superimposed PNA, COVID 19 infection continue plavix (previously on hold pending ortho hip injection) - TTE as noted in CHF (4) Congestive heart failure: Plan: - Patient with history of CHF. Dry weight initially thought to be 200 but closer to 210-214lbs - BNP elevated - Follows with Dr. Barlow, last seen 12/11/20 as well as Caridad Herrera in the Heart Failure clinic - Last echo with EF ~45%, moderate concentric LVH, grade II diastolic dysfunction, mild LA/RA dilation. Repeat TTE ef 60-65%, no wall motion abnormalities, - continue Bumex 2mg PO daily BMP daily, Cr is 3.0, negative fluid balance some pitting edema in ankles still -Continue home medications - Carvedilol, Hydralazine, Isosorbide mononitrate, resume Spironolactone (5) Diabetes mellitus with hyperglycemia: Plan: - Elevated blood sugar to 403 at admit. - On admit B-HB present but no anion gap - Lantus 15u BID, ISS. - Goal blood sugar 140 - 180 while inpatient - CC diet as tolerated - Continue Reglan Pharmacy glycemic consult placed given patient's history of hypoglycemia and fluctuating requirements hypoglycemic this morning, 60's, no symptoms, defer to pharmacy who is managing (6) CKD (chronic kidney disease) stage 4, GFR 15-29 ml/min: Plan: Acute kidney injury on CKD stage 4 - Cr is stable, down to 3.0 today, resumed Bumex but at 2mg and resumed spironolactone 50mg -Avoid nephrotoxic agents -Renal dosing where needed appreciate nephrology consult from Dr. Nickerson (7) CAD (coronary artery disease): Plan: - Patient with longstanding history of CAD with stable angina. She follows with Dr. Barlow -Continue ASA -Plavix reportedly on hold as she is to have an injection soon in her hip. Restarted 2/2 elevated troponin per discussion with cardiology, continue until troponins down trended and patient no longer ill. Can reassess injection at that time -Continue Crestor -Continue Carvedilol -Opponent peaked, down trended (8) Hypertension: Plan: Blood pressure 130's systolic increased Norvasc to 10mg 01/06, continue other home meds -Continue to monitor (9) Hyperlipidemia: Plan: Chronic -Continue Crestor (10) GERD (gastroesophageal reflux disease): Plan: Chronic -Continue Protonix Plan: treat with dexamethasone, wean oxygen as tolerated daily labs anticipate she may need rehab if not strong enough to go home, likely here a few more days to monitor oxygen levels and renal function Ppx - Heparin Code - DNR/DNI per discussion with patient Dispo - continue PCU, COVID unit Admission and Anticipated Discharge Date Admission Date: December 31, 2020 Subjective 80 yo female reports breathing better. She has no new complaints. Review of Systems Review of Systems: All systems reviewed & are unremarkable except as noted in HPI & below Physical Exam Physical Exam: Constitutional: well developed, + obese and comfortable; no acute distress Neck: trachea midline, no thyromegaly Respiratory: normal respiratory effort, lungs clear to auscultation normal respiratory effort; no respiratory distress, no labored breathing and no cough Auscultation: + diminished lung sounds; no crackles, no rales, no rhonchi and no wheezes Cardiovascular: Rate/Rhythm: regular rate and regular rhythm Heart Sounds: normal S1 and normal S2; no murmur Extremities: normal capillary refill and + edema (pitting, ankles bilaterally) Gastrointestinal (Abdomen): normal bowel sounds, soft, nontender, no hepatosplenomegaly Musculoskeletal: no cyanosis or clubbing, extremities motor strength 5/5 Skin: no rashes, warm and dry Neurologic: normal touch/pain/proprioception, CN's II-XI intact bilaterally, moves all extremities and awake; no focal motor deficits and not confused Psychiatric: A+Ox3, euthymic affect Results & Data Results & Data ([facility]) Vital Signs (Past 12 Hours) Vital Signs Temp Pulse Pulse Resp BP BP Pulse Ox 01/09/21 19:47 36.7 C 70 18 146/70 H 96 01/09/21 15:53 36.7 C 68 19 150/59 H 98 01/09/21 11:59 36.5 C 65 18 147/58 H 97 PG Care Time/CCT Total # of Minutes Spent Total Time Spent with Patient: Total time spent is greater than 50% in coordination of care (as documented) at patient's floor/unit and/or counseling patient: Coding Level of Care Code 48651 Subseq Hosp Care Lvl 2 Diagnoses COVID-19 U07.1 Pneumonia J18.9 Troponin level elevated R77.8 Congestive heart failure I50.9 Heart failure chronicity: unspecified Heart failure type: unspecified Diabetes mellitus with hyperglycemia E11.65 CKD (chronic kidney disease) stage 4, GFR 15-29 ml/min N18.4 CAD (coronary artery disease) I25.10 Hypertension I10 Hyperlipidemia E78.5 GERD (gastroesophageal reflux disease) K21.9 Time Spent (min) 25 (1) Congestive heart failure Heart failure chronicity: unspecified Heart failure type: unspecified Qualified Code(s): I50.9 - Heart failure, unspecified
[2021-01-09] MEDS: DOCUSATE SODIUM 100 MG CAP PO SCH (21:59)
[2021-01-09] MEDS: MELATONIN 3 MG TAB PO PRN (23:51)
[2021-01-10] MEDS: ASPIRIN 81 MG ECTAB PO SCH (08:13)
[2021-01-10] MEDS: METOCLOPRAMIDE HCL 5 MG TABLET PO SCH ×4 (08:13→20:21)
[2021-01-10] MEDS: dexAMETHasone 6 MG in SYRINGE 0 ML IV SCH (08:13)
[2021-01-10] MEDS: hydrALAZINE TAB 50 MG TAB PO SCH ×3 (08:14→20:22)
[2021-01-10] MEDS: GABAPENTIN 100 MG CAP PO SCH ×3 (08:14→20:13)
[2021-01-10] MEDS: BUMETANIDE 1 MG TAB PO SCH (08:14)
[2021-01-10] MEDS: carvediloL 25 MG TAB PO SCH ×2 (08:14→20:12)
[2021-01-10] MEDS: ISOSORBIDE MONO EXTENDED REL 60 MG TABCR PO SCH ×2 (08:14→20:21)
[2021-01-10] MEDS: CLOPIDOGREL BISULFATE 75 MG TAB PO SCH (08:15)
[2021-01-10] MEDS: PANTOprazole 40 MG TAB PO SCH (08:15)
[2021-01-10] MEDS: amLODIPine BESYLATE 5 MG TAB PO SCH (08:15)
[2021-01-10] MEDS: traMADol HCL 50 MG TABLET PO PRN ×2 (08:20→23:41)
[2021-01-10] MEDS: INSULIN HUMAN NPH SC SCH (08:50)
[2021-01-10] MEDS: INSULIN ASPART 100 UNITS/ML 3 ML PEN SC SCH ×4 (08:50→21:21)
--- NOTE | 2021-01-10 12:52 | Pharmacy Report ---
Pharmacy Glycemic Short Note 2 - Date of Service January 10, 2021 - Glycemic Short BSG Results (Last 24 hours): 01/09/21 01/09/21 01/10/21 16:27 21:01 07:54 POC Glucose 184 H 170 H 63 L* 01/10/21 01/10/21 07:54 11:45 POC Glucose 71 205 H OUTPATIENT ANTIDIABETIC REGIMEN: * Basaglar 30 units SC HS * Novolog 13 units TIDM ASSESSMENT: 01/10: * Patient well controlled yesterday, receiving 115 units of insulin, 35 of which were NPH. * Patient was hypoglycemic this morning and only received 2 units of novolog at HS. Will reduce NPH dose (although typical duration is 12-18 hours, this could be effecting fasting BSG). Will also loosen carb ratio. * Patient continues on steroids and is tolerating a diet. 01/08 * Pt has received 141 units of insulin over the past 24hrs * 45 units of NPH for basal/steroid induced hyperglycemia from dexamethasone * 96 units of bolus with NovoLog * BSGs [phone] mg/dl * Pt with LOW BSG this AM. Likely from large dose of Novolog given at HS. HS to AM BSG tends to drop significantly- 24hr basal insulin likely not needed based on A1c. Will continue with NPH at current dosing for steroids since daytime BS Gs elevated. Will loosen HS parameters of NovoLog to prevent LOW tomorrow. 01/07 * Pt has received 89 units of insulin over the past 24hrs * 35 units of basal with NPH * 54 units of bolus with NovoLog * BSGs 108-226 mg/dl * Fasting 108mg/dl, improved with discontinuing Lantus and only using NPH for basal insulin once daily * Blood sugars still high throughout the day, increase NPH and tighten CF/CR 01/06 * Severe AM hypoglycemia noted this AM with BSG of 43 mg/dL, despite no changes to basal insulin regimen yesterday (and 6 units of correctional insulin required overnight from 01/04 to 01/05). Etiology is likely Lantus, especially when given in combination with NPH * Post-prandial BSG's all still elevated >180 mg/dL yesterday, however * Will suspend Lantus for today due to severity of hypoglycemia this AM. OK to add back a little NPH with lunch now that BSG has rebounded substantially. * Will tighten CHO ratio 01/05 * Post-prandial BSG still significantly elevated last night so tightened CHO ratio again at breakfast * AM fasting BSG good - continue Lantus and NPH as-is 01/04 * Patients BSGs trending upward with addition of steroids/worsening oxygen requirements yesterday * Fasting this morning 184 mg/dL- received steroid overnight and changed to dexamethasone, patient originally NPO this morning, ordered NPH when diet started * Lunch BSG elevated into the 300s, however patient had late breakfast and NPH was not given until ~1100, therefore will monitor this evening's doses for further changes. 01/02 * Patient received total of 70 units of insulin yesterday, of which 33 units were basal insulin * Fasting BSG 107 mg/dL - plan to continue same basal insulin * Continue same CF/CR 01/01 * 80 yo F w hx severe hypoglycemia admitted 12/31 for hyperglycemia. Pharmacy consulted on 01/01 * Post-prandial BSG's significantly elevated >200 mg/dL for 5 of the last 6 checks. Will tighten CHO ratio. Will also slightly tighten correction factor * AM fasting BSG slightly above goal. Will increase Lantus slightly by 20% * One overnight check PLAN FOR INPATIENT GLYCEMIC CONTROL: * Basal insulin * NPH 35 units SC qAM (given with dexamethasone) * Bolus insulin: loosen HS parameters * NovoLog per scale ACHS or Q6hrs while NPO * Goal Range: Low 110 mg/dL - High 140 mg/dL * Correction Factor: 10 mg/dL/unit (change to 20 for HS only) * Nutritional / Prandial insulin per carb ratio of 1 unit per 3 grams CHO consumed (change to 6 at HS only) PLAN FOR DISCHARGE: * A1C 7.5% - goal <8% is reasonable for patient * As long as patient is not discharged on steroids and as long as patient is not experiencing frequent hypoglycemia at home, would recommend continuation of home Basaglar/Novolog
[2021-01-10] MEDS: DOCUSATE SODIUM 100 MG CAP PO SCH (20:24)
--- NOTE | 2021-01-10 21:04 | Hospitalist Progress Note ---
Date of Service January 10, 2021 Assessment & Plan (1) COVID-19: Plan: initially tested negative on admission, repeat test 01/04 POSITIVE appearance of viral pneumonia on imaging of chest Dexamethasone 6mg IV daily, day 6 cannot get Remdesivir due to renal failure no need for further antibiotics, no signs of bacterial infection acute hypoxic respiratory failure, due to pneumonia placed on BIPAP night of 01/04 responded well now on 2L for 72 hours, very stable, feels well use the BIPAP every night and as needed for naps during the day prognosis steadily improving, less oxygen required and Cr coming down slightly to 3.0 Patient is agreeable to rehab. (2) Pneumonia: Plan: 80yo female with multiple medical comorbidities presenting with SOB as well as productive cough, orthopnea, weight gain. Elevated WBC, CT findings concerning for infectious process. Covid-19 was negative, now POSITIVE on 01/04 -Supplemental O2 as needed to maintain saturations >92%, on 2L right now but was stable on room air for a short while this morning which is good sign dexamethasone 6mg IV daily day 5 today -Continue Albuterol PRN add flutter valve and incentive spirometer to get her expanding lungs PT/OT evaluations, she lives alone at home (3) Troponin level elevated: Plan: - Pt clinically asymptomatic, no chest pain at assessment - EKG on admission with lateral ST depressions - Troponin elevated from 0.258 to 5.420, downtrending on repeat - Repeat EKG with improvement in lateral ischemic changes, appears near prior baseline. - prior hospitalist discussed with cardiology. Likely demand ischemia in the setting of underlying cardiac disease with superimposed PNA, COVID 19 infection continue plavix (previously on hold pending ortho hip injection) - TTE as noted in CHF (4) Congestive heart failure: Plan: - Patient with history of CHF. Dry weight initially thought to be 200 but closer to 210-214lbs - BNP elevated - Follows with Dr. Barlow, last seen 12/11/20 as well as Caridad Herrera in the Heart Failure clinic - Last echo with EF ~45%, moderate concentric LVH, grade II diastolic dysfunction, mild LA/RA dilation. Repeat TTE ef 60-65%, no wall motion abnormalities, - continue Bumex 2mg PO daily BMP daily, Cr is 3.0, negative fluid balance some pitting edema in ankles still -Continue home medications - Carvedilol, Hydralazine, Isosorbide mononitrate, resume Spironolactone (5) Diabetes mellitus with hyperglycemia: Plan: - Elevated blood sugar to 403 at admit. - On admit B-HB present but no anion gap - Lantus 15u BID, ISS. - Goal blood sugar 140 - 180 while inpatient - CC diet as tolerated - Continue Reglan Pharmacy glycemic consult placed given patient's history of hypoglycemia and fluctuating requirements hypoglycemic this morning, 60's, no symptoms, defer to pharmacy who is managing (6) CKD (chronic kidney disease) stage 4, GFR 15-29 ml/min: Plan: Acute kidney injury on CKD stage 4 - Cr is stable, down to 3.0 today, resumed Bumex but at 2mg and resumed spironolactone 50mg -Avoid nephrotoxic agents -Renal dosing where needed appreciate nephrology consult from Dr. Nickerson (7) CAD (coronary artery disease): Plan: - Patient with longstanding history of CAD with stable angina. She follows with Dr. Barlow -Continue ASA -Plavix reportedly on hold as she is to have an injection soon in her hip. Restarted 2/2 elevated troponin per discussion with cardiology, continue until troponins down trended and patient no longer ill. Can reassess injection at that time -Continue Crestor -Continue Carvedilol -Opponent peaked, down trended (8) Hypertension: Plan: Blood pressure 130's systolic increased Norvasc to 10mg 01/06, continue other home meds -Continue to monitor (9) Hyperlipidemia: Plan: Chronic -Continue Crestor (10) GERD (gastroesophageal reflux disease): Plan: Chronic -Continue Protonix Plan: treat with dexamethasone, wean oxygen as tolerated daily labs anticipate she may need rehab if not strong enough to go home, likely here a few more days to monitor oxygen levels and renal function Ppx - Heparin Code - DNR/DNI per discussion with patient Dispo - continue PCU, COVID unit Admission and Anticipated Discharge Date Admission Date: December 31, 2020 Subjective 80 yo female reports feeling better. Review of Systems Review of Systems: All systems reviewed & are unremarkable except as noted in HPI & below Physical Exam Physical Exam: Constitutional: well developed, + obese and comfortable; no acute distress Neck: trachea midline, no thyromegaly Respiratory: normal respiratory effort, lungs clear to auscultation normal respiratory effort; no respiratory distress, no labored breathing and no cough Auscultation: + diminished lung sounds; no crackles, no rales, no rhonchi and no wheezes Cardiovascular: Rate/Rhythm: regular rate and regular rhythm Heart Sounds: normal S1 and normal S2; no murmur Extremities: normal capillary refill and + edema (pitting, ankles bilaterally) Gastrointestinal (Abdomen): normal bowel sounds, soft, nontender, no hepatosplenomegaly Musculoskeletal: no cyanosis or clubbing, extremities motor strength 5/5 Skin: no rashes, warm and dry Neurologic: normal touch/pain/proprioception, CN's II-XI intact bilaterally, moves all extremities and awake; no focal motor deficits and not confused Psychiatric: A+Ox3, euthymic affect Results & Data Results & Data ([facility]) Vital Signs (Past 12 Hours) Vital Signs Temp Pulse Resp BP Pulse Ox 01/10/21 20:03 36.4 C L 65 16 161/63 H 99 01/10/21 15:41 36.4 C L 60 18 155/64 H 99 01/10/21 11:20 36.4 C L 58 L 18 145/51 H 98 PG Care Time/CCT Total # of Minutes Spent Total Time Spent with Patient: Total time spent is greater than 50% in coordination of care (as documented) at patient's floor/unit and/or counseling patient: Coding Level of Care Code 28817 Subseq Hosp Care Lvl 2 Diagnoses COVID-19 U07.1 Pneumonia J18.9 Troponin level elevated R77.8 Congestive heart failure I50.9 Heart failure chronicity: unspecified Heart failure type: unspecified Diabetes mellitus with hyperglycemia E11.65 CKD (chronic kidney disease) stage 4, GFR 15-29 ml/min N18.4 CAD (coronary artery disease) I25.10 Hypertension I10 Hyperlipidemia E78.5 GERD (gastroesophageal reflux disease) K21.9 Time Spent (min) 25 (1) Congestive heart failure Heart failure chronicity: unspecified Heart failure type: unspecified Qualified Code(s): I50.9 - Heart failure, unspecified
[2021-01-10] MEDS: MELATONIN 3 MG TAB PO PRN (23:41)
[2021-01-11 08:00] LABS: Hematocrit (blood only) 27.8 % (37-47); Mean Corpuscular Hemoglobin 30.4 pg (25-34); Mean Corpuscular Hgb Conc 32.4 g/dL (32-36); Mean Corpuscular Volume 93.9 fL (80-100); Mean Platelet Volume 10.5 fL (7.4-10.4); Nucleated RBC # (auto) 0.02 K/uL (0-0); Nucleated RBC % (auto) 0.2 %; Platelet Count 231 K/uL (130-400); RDW Coefficient of Variation 14.7 % (11.5-14.5); RDW Standard Deviation 48.3 fL (36.4-46.3); Red Blood Count 2.96 M/uL (4.2-5.4); White Blood Count 12.87 K/uL (4.8-10.8)
[2021-01-11 08:35] LABS: BUN Creatinine Ratio 43.1 (10-20); Calcium 8.9 mg/dl (8.5-10.1); Creatinine Clr Calc Pharmacy 16.3 ml/min; Est GFR (Non-African American) 13.8 ml/min; Potassium 4.2 mmol/L (3.5-5.1)
[2021-01-11] MEDS: METOCLOPRAMIDE HCL 5 MG TABLET PO SCH ×4 (08:44→20:30)
[2021-01-11] MEDS: INSULIN ASPART 100 UNITS/ML 3 ML PEN SC SCH ×4 (08:45→20:31)
[2021-01-11] MEDS: amLODIPine BESYLATE 5 MG TAB PO SCH (08:46)
[2021-01-11] MEDS: BUMETANIDE 1 MG TAB PO SCH (08:47)
[2021-01-11] MEDS: ASPIRIN 81 MG ECTAB PO SCH (08:47)
[2021-01-11] MEDS: GABAPENTIN 100 MG CAP PO SCH ×3 (08:48→20:25)
[2021-01-11] MEDS: dexAMETHasone 6 MG in SYRINGE 0 ML IV SCH (08:48)
[2021-01-11] MEDS: carvediloL 25 MG TAB PO SCH ×2 (08:48→20:27)
[2021-01-11] MEDS: CLOPIDOGREL BISULFATE 75 MG TAB PO SCH (08:48)
[2021-01-11] MEDS: INSULIN HUMAN NPH SC SCH (08:49)
[2021-01-11] MEDS: hydrALAZINE TAB 50 MG TAB PO SCH ×3 (08:49→20:29)
[2021-01-11] MEDS: PANTOprazole 40 MG TAB PO SCH (08:50)
[2021-01-11] MEDS: ISOSORBIDE MONO EXTENDED REL 60 MG TABCR PO SCH ×2 (08:50→20:27)
[2021-01-11] MEDS: ACETAMINOPHEN 325 MG TAB PO PRN ×2 (13:55→20:21)
--- NOTE | 2021-01-11 14:11 | Pharmacy Report ---
Pharmacy Glycemic Short Note 2 - Date of Service January 11, 2021 - Glycemic Short BSG Results (Last 24 hours): 01/10/21 01/10/21 01/11/21 16:35 20:17 07:33 Glucose 129 H POC Glucose 191 H 202 H 01/11/21 01/11/21 08:01 12:05 Glucose POC Glucose 122 H 153 H OUTPATIENT ANTIDIABETIC REGIMEN: * Basaglar 30 units SC HS * Novolog 13 units TIDM ASSESSMENT: 01/11: * Fasting BSG much improved today at 122 mg/dL. However, postprandial BSGs trended up a bit. Will continue same dose of NPH but tighten novolog CR back. * Patient continues on steroids and is tolerating a diet. 01/10: * Patient well controlled yesterday, receiving 115 units of insulin, 35 of which were NPH. * Patient was hypoglycemic this morning and only received 2 units of novolog at HS. Will reduce NPH dose (although typical duration is 12-18 hours, this could be effecting fasting BSG). Will also loosen carb ratio. * Patient continues on steroids and is tolerating a diet. 01/08 * Pt has received 141 units of insulin over the past 24hrs * 45 units of NPH for basal/steroid induced hyperglycemia from dexamethasone * 96 units of bolus with NovoLog * BSGs 602-501-194-190-64 mg/dl * Pt with LOW BSG this AM. Likely from large dose of Novolog given at HS. HS to AM BSG tends to drop significantly- 24hr basal insulin likely not needed based on A1c. Will continue with NPH at current dosing for steroids since daytime BSGs elevated. Will loosen HS parameters of NovoLog to prevent LOW tomorrow. 01/07 * Pt has received 89 units of insulin over the past 24hrs * 35 units of basal with NPH * 54 units of bolus with NovoLog * BSGs 108-226 mg/dl * Fasting 108mg/dl, improved with discontinuing Lantus and only using NPH for basal insulin once daily * Blood sugars still high throughout the day, increase NPH and tighten CF/CR 01/06 * Severe AM hypoglycemia noted this AM with BSG of 43 mg/dL, despite no changes to basal insulin regimen yesterday (and 6 units of correctional insulin required overnight from 01/04 to 01/05). Etiology is likely Lantus, especially when given in combination with NPH * Post-prandial BSG's all still elevated >180 mg/dL yesterday, however * Will suspend Lantus for today due to severity of hypoglycemia this AM. OK to add back a little NPH with lunch now that BSG has rebounded substantially. * Will tighten CHO ratio 01/05 * Post-prandial BSG still significantly elevated last night so tightened CHO ratio again at breakfast * AM fasting BSG good - continue Lantus and NPH as-is 01/04 * Patients BSGs trending upward with addition of steroids/worsening oxygen requirements yesterday * Fasting this morning 184 mg/dL- received steroid overnight and changed to dexamethasone, patient originally NPO this morning, ordered NPH when diet started * Lunch BSG elevated into the 300s, however patient had late breakfast and NPH was not given until ~1100, therefore will monitor this evening's doses for further changes. 01/02 * Patient received total of 70 units of insulin yesterday, of which 33 units were basal insulin * Fasting BSG 107 mg/dL - plan to continue same basal insulin * Continue same CF/CR 01/01 * 80 yo F w hx severe hypoglycemia admitted 12/31 for hyperglycemia. Pharmacy consulted on 01/01 * Post-prandial BSG's significantly elevated >200 mg/dL for 5 of the last 6 checks. Will tighten CHO ratio. Will also slightly tighten correction factor * AM fasting BSG slightly above goal. Will increase Lantus slightly by 20% * One overnight check PLAN FOR INPATIENT GLYCEMIC CONTROL: * Basal insulin * NPH 35 units SC qAM (given with dexamethasone) * Bolus insulin: loosen HS parameters * NovoLog per scale ACHS or Q6hrs while NPO * Goal Range: Low 110 mg/dL - High 140 mg/dL * Correction Factor: 10 mg/dL/unit (change to 20 for HS only) * Nutritional / Prandial insulin per carb ratio of 1 unit per 2 grams CHO c onsumed (change to 6 at HS only) PLAN FOR DISCHARGE: * A1C 7.5% - goal <8% is reasonable for patient * As long as patient is not discharged on steroids and as long as patient is not experiencing frequent hypoglycemia at home, would recommend continuation of home Basaglar/Novolog
[2021-01-11] MEDS: traMADol HCL 50 MG TABLET PO PRN ×2 (15:02→23:13)
[2021-01-11] MEDS: DOCUSATE SODIUM 100 MG CAP PO SCH (20:24)
--- NOTE | 2021-01-11 20:38 | Hospitalist Progress Note ---
Date of Service January 11, 2021 Assessment & Plan (1) COVID-19: Plan: initially tested negative on admission, repeat test 01/04 POSITIVE appearance of viral pneumonia on imaging of chest Dexamethasone 6mg IV daily, day 8 cannot get Remdesivir due to renal failure no need for further antibiotics, no signs of bacterial infection acute hypoxic respiratory failure, due to pneumonia placed on BIPAP night of 01/04 responded well now on room air, very stable, feels well Awaiting placement. use the BIPAP every night and as needed for naps during the day prognosis steadily improving, less oxygen required and Cr coming down slightly to 3.0 Patient is agreeable to rehab. awaiting placement. (2) Pneumonia: Plan: 80yo female with multiple medical comorbidities presenting with SOB as well as productive cough, orthopnea, weight gain. Elevated WBC, CT findings concerning for infectious process. Covid-19 was negative, now POSITIVE on 01/04 -Supplemental O2 as needed to maintain saturations >92%, on 2L right now but was stable on room air for a short while this morning which is good sign dexamethasone 6mg IV daily day 5 today -Continue Albuterol PRN add flutter valve and incentive spirometer to get her expanding lungs PT/OT evaluations, she lives alone at home (3) Troponin level elevated: Plan: - Pt clinically asymptomatic, no chest pain at assessment - EKG on admission with lateral ST depressions - Troponin elevated from 0.258 to 5.420, downtrending on repeat - Repeat EKG with improvement in lateral ischemic changes, appears near prior baseline. - prior hospitalist discussed with cardiology. Likely demand ischemia in the setting of underlying cardiac disease with superimposed PNA, COVID 19 infection continue plavix (previously on hold pending ortho hip injection) - TTE as noted in CHF (4) Congestive heart failure: Plan: - Patient with history of CHF. Dry weight initially thought to be 200 but closer to 210-214lbs - BNP elevated - Follows with Dr. Barlow, last seen 12/11/20 as well as Caridad Herrera in the Heart Failure clinic - Last echo with EF ~45%, moderate concentric LVH, grade II diastolic dysfunction, mild LA/RA dilation. Repeat TTE ef 60-65%, no wall motion abnormalities, - continue Bumex 2mg PO daily BMP daily, Cr is 3.0, negative fluid balance some pitting edema in ankles still -Continue home medications - Carvedilol, Hydralazine, Isosorbide mononitrate, resume Spironolactone (5) Diabetes mellitus with hyperglycemia: Plan: - Elevated blood sugar to 403 at admit. - On admit B-HB present but no anion gap - Lantus 15u BID, ISS. - Goal blood sugar 140 - 180 while inpatient - CC diet as tolerated - Continue Reglan Pharmacy glycemic consult placed given patient's history of hypoglycemia and fluctuating requirements hypoglycemic this morning, 60's, no symptoms, defer to pharmacy who is managing (6) CKD (chronic kidney disease) stage 4, GFR 15-29 ml/min: Plan: Acute kidney injury on CKD stage 4 - Cr is stable, down to 3.0 today, resumed Bumex but at 2mg and resumed spironolactone 50mg -Avoid nephrotoxic agents -Renal dosing where needed appreciate nephrology consult from Dr. Nickerson (7) CAD (coronary artery disease): Plan: - Patient with longstanding history of CAD with stable angina. She follows with Dr. Barlow -Continue ASA -Plavix reportedly on hold as she is to have an injection soon in her hip. Restarted 2/2 elevated troponin per discussion with cardiology, continue until troponins down trended and patient no longer ill. Can reassess injection at that time -Continue Crestor -Continue Carvedilol -Opponent peaked, down trended (8) Hypertension: Plan: Blood pressure 130's systolic increased Norvasc to 10mg 01/06, continue other home meds -Continue to monitor (9) Hyperlipidemia: Plan: Chronic -Continue Crestor (10) GERD (gastroesophageal reflux disease): Plan: Chronic -Continue Protonix Plan: treat with dexamethasone, wean oxygen as tolerated daily labs anticipate she may need rehab if not strong enough to go home, likely here a few more days to monitor oxygen levels and renal function Ppx - Heparin Code - DNR/DNI per discussion with patient Dispo - continue PCU, COVID unit Admission and Anticipated Discharge Date Admission Date: December 31, 2020 Subjective Patient reports feeling well. She has no new complaints. Review of Systems Review of Systems: All systems reviewed & are unremarkable except as noted in HPI & below Physical Exam Physical Exam: Constitutional: well developed, + obese and comfortable; no acute distress Neck: trachea midline, no thyromegaly Respiratory: normal respiratory effort, lungs clear to auscultation normal respiratory effort; no respiratory distress, no labored breathing and no cough Auscultation: + diminished lung sounds; no crackles, no rales, no rhonchi and no wheezes Cardiovascular: Rate/Rhythm: regular rate and regular rhythm Heart Sounds: normal S1 and normal S2; no murmur Extremities: normal capillary refill and + edema (pitting, ankles bilaterally) Gastrointestinal (Abdomen): normal bowel sounds, soft, nontender, no hepato splenomegaly Musculoskeletal: no cyanosis or clubbing, extremities motor strength 5/5 Skin: no rashes, warm and dry Neurologic: normal touch/pain/proprioception, CN's II-XI intact bilaterally, moves all extremities and awake; no focal motor deficits and not confused Psychiatric: A+Ox3, euthymic affect Results & Data Results & Data ([facility]) Vital Signs (Past 12 Hours) Vital Signs Temp Pulse Pulse Resp BP Pulse Ox 01/11/21 20:04 36.4 C L 56 L 18 133/57 L 94 01/11/21 15:45 55 L 01/11/21 15:42 36.5 C 59 L 19 114/52 L 93 01/11/21 11:51 36.5 C 56 L 20 119/46 L 91 PG Care Time/CCT Total # of Minutes Spent Total Time Spent with Patient: Total time spent is greater than 50% in coordination of care (as documented) at patient's floor/unit and/or counseling patient: Coding Level of Care Code 02069 Subseq Hosp Care Lvl 2 Diagnoses COVID-19 U07.1 Pneumonia J18.9 Troponin level elevated R77.8 Congestive heart failure I50.9 Heart failure chronicity: unspecified Heart failure type: unspecified Diabetes mellitus with hyperglycemia E11.65 CKD (chronic kidney disease) stage 4, GFR 15-29 ml/min N18.4 CAD (coronary artery disease) I25.10 Hypertension I10 Hyperlipidemia E78.5 GERD (gastroesophageal reflux disease) K21.9 Time Spent (min) 25 (1) Congestive heart failure Heart failure chronicity: unspecified Heart failure type: unspecified Qualified Code(s): I50.9 - Heart failure, unspecified
[2021-01-11] MEDS: MELATONIN 3 MG TAB PO PRN (23:13)
[2021-01-12] MEDS: ACETAMINOPHEN 325 MG TAB PO PRN (04:46)
[2021-01-12] MEDS: dexAMETHasone 6 MG in SYRINGE 0 ML IV SCH (07:53)
[2021-01-12] MEDS: ASPIRIN 81 MG ECTAB PO SCH (07:53)
[2021-01-12] MEDS: PANTOprazole 40 MG TAB PO SCH (07:54)
[2021-01-12] MEDS: CLOPIDOGREL BISULFATE 75 MG TAB PO SCH (07:54)
[2021-01-12] MEDS: carvediloL 25 MG TAB PO SCH (07:54)
[2021-01-12] MEDS: BUMETANIDE 1 MG TAB PO SCH (07:54)
[2021-01-12] MEDS: hydrALAZINE TAB 50 MG TAB PO SCH ×2 (07:54→12:44)
[2021-01-12] MEDS: amLODIPine BESYLATE 5 MG TAB PO SCH (07:55)
[2021-01-12] MEDS: GABAPENTIN 100 MG CAP PO SCH ×2 (07:55→12:44)
[2021-01-12] MEDS: ISOSORBIDE MONO EXTENDED REL 60 MG TABCR PO SCH (07:55)
[2021-01-12] MEDS: METOCLOPRAMIDE HCL 5 MG TABLET PO SCH ×3 (08:03→17:32)
[2021-01-12] MEDS: INSULIN ASPART 100 UNITS/ML 3 ML PEN SC SCH ×3 (08:50→17:31)
[2021-01-12] MEDS ORDERED: INSULIN HUMAN NPH SC SCH (09:00)
--- NOTE | 2021-01-13 07:35 | Discharge Summary ---
Date of Service January 12, 2021 Admission HPI Per Admitting Provider Treva Sosa is a pleasant 80yo female with multiple medical comorbidities presenting with SOB ongoing x 4 days. She reports feeling short of breath as well as orthopnea, EASLEY, weight gain of 2# today. She has a cough productive for dark yellow sputum as well as some sweating at night. She denies fever, chills, palpitations, abdominal pain, nausea, vomiting, diarrhea, dysuria Does have some feeling of "congestion" across her chest as well as chronic constipation. No additional complaints at this time. Patient had Covid-19 infection in May and has been vaccinated as well. ER Course: Albuterol, Zosyn Principal Diagnosis COVID 19 Discharge Exam Constitutional: well developed, + obese and comfortable; no acute distress Neck: trachea midline, no thyromegaly Respiratory: normal respiratory effort, lungs clear to auscultation normal respiratory effort; no respiratory distress, no labored breathing and no cough Auscultation: + diminished lung sounds; no crackles, no rales, no rhonchi and no wheezes Cardiovascular: Rate/Rhythm: regular rate and regular rhythm Heart Sounds: normal S1 and normal S2; no murmur Extremities: normal capillary refill and + edema (pitting, ankles bilaterally) Gastrointestinal (Abdomen): normal bowel sounds, soft, nontender, no hepatosplenomegaly Musculoskeletal: no cyanosis or clubbing, extremities motor strength 5/5 Skin: no rashes, warm and dry Neurologic: normal touch/pain/proprioception, CN's II-XI intact bilaterally, moves all extremities and awake; no focal motor deficits and not confused Psychiatric: A+Ox3, euthymic affect Discharge Data Allergies Allergy/AdvReac Type Severity Reaction Status Date / Time Sulfa (Sulfonamide Allergy Intermediate RASH/PRURIT Verified 12/31/20 01:06 Antibiotics) IS sulfamethoxazole Allergy Intermediate RASH/PRURIT Verified 12/31/20 01:06 [From Bactrim] IS trimethoprim [From Bactrim] Allergy Intermediate RASH/PRURIT Verified 12/31/20 01:06 IS chlorpropamide AdvReac Intermediate N/V Verified 12/31/20 01:06 omeprazole AdvReac Intermediate interacts Verified 12/31/20 01:06 w/ clopidigrol ARI Inhibitors AdvReac Unknown AVOIDS Verified 12/31/20 01:06 SECONDARY TO "OTHER MEDICATIONS" PER PT Consultations 12/31/20 03:37 ED Decision to Admit Stat 01/03/21 23:55 Consult Pulmonology Routine 01/04/21 18:45 Consult Nephrology Routine Ordered Studies 12/31/20 01:16 CT chest diagnostic wo con Urgent Hospital Course (1) COVID-19: initially tested negative on admission, repeat test 01/04 POSITIVE appearance of viral pneumonia on imaging of chest Dexamethasone 6mg IV daily, day 8 cannot get Remdesivir due to renal failure no need for further antibiotics, no signs of bacterial infection acute hypoxic respiratory failure, due to pneumonia placed on BIPAP night of 01/04 responded well now on room air, very stable, feels well Awaiting placement. use the BIPAP every night and as needed for naps during the day prognosis steadily improving, less oxygen required and Cr coming down slightly to 3.0 Patient is agreeable to rehab. will be discharged to inpatient rehab facility (2) Pneumonia: 80yo female with multiple medical comorbidities presenting with SOB as well as productive cough, orthopnea, weight gain. Elevated WBC, CT findings concerning for infectious process. Covid-19 was negative, now POSITIVE on 01/04 -Supplemental O2 as needed to maintain saturations >92%, on 2L right now but was stable on room air for a short while this morning which is good sign dexamethasone 6mg IV daily day 5 today -Continue Albuterol PRN add flutter valve and incentive spirometer to get her expanding lungs PT/OT evaluations, she lives alone at home (3) Troponin level elevated: - Pt clinically asymptomatic, no chest pain at assessment - EKG on admission with lateral ST depressions - Troponin elevated from 0.258 to 5.420, downtrending on repeat - Repeat EKG with improvement in lateral ischemic changes, appears near prior baseline. - prior hospitalist discussed with cardiology. Likely demand ischemia in the setting of underlying cardiac disease with superimposed PNA, COVID 19 infection continue plavix (previously on hold pending ortho hip injection) - TTE as noted in CHF (4) Congestive heart failure: - Patient with history of CHF. Dry weight initially thought to be 200 but closer to 210-214lbs - BNP elevated - Follows with Dr. Barlow, last seen 12/11/20 as well as Caridad Herrera in the Heart Failure clinic - Last echo with EF ~45%, moderate concentric LVH, grade II diastolic dysfunction, mild LA/RA dilation. Repeat TTE ef 60-65%, no wall motion abnormalities, - continue Bumex 2mg PO daily BMP daily, Cr is 3.0, negative fluid balance some pitting edema in ankles still -Continue home medications - Carvedilol, Hydralazine, Isosorbide mononitrate, resume Spironolactone (5) Diabetes mellitus with hyperglycemia: - Elevated blood sugar to 403 at admit. - On admit B-HB present but no anion gap - Lantus 15u BID, ISS. - Goal blood sugar 140 - 180 while inpatient - CC diet as tolerated - Continue Reglan Pharmacy glycemic consult placed given patient's history of hypoglycemia and fluctuating requirements hypoglycemic this morning, 60's, no symptoms, defer to pharmacy who is managing (6) CKD (chronic kidney disease) stage 4, GFR 15-29 ml/min: Acute kidney injury on CKD stage 4 - Cr is stable, down to 3.0 today, resumed Bumex but at 2mg and resumed spironolactone 50mg -Avoid nephrotoxic agents -Renal dosing where needed appreciate nephrology consult from Dr. Nickerson (7) CAD (coronary artery disease): - Patient with longstanding history of CAD with stable angina. She follows with Dr. Barlow -Continue ASA -Plavix reportedly on hold as she is to have an injection soon in her hip. Restarted 2/2 elevated troponin per discussion with cardiology, continue until troponins down trended and patient no longer ill. Can reassess injection at that time -Continue Crestor -Continue Carvedilol -Opponent peaked, down trended (8) Hypertension: Blood pressure 130's systolic increased Norvasc to 10mg 01/06, continue other home meds -Continue to monitor (9) Hyperlipidemia: Chronic -Continue Crestor (10) GERD (gastroesophageal reflux disease): Chronic -Continue Protonix treat with dexamethasone, wean oxygen as tolerated daily labs anticipate she may need rehab if not strong enough to go home, likely here a few more days to monitor oxygen levels and renal function Ppx - Heparin Code - DNR/DNI per discussion with patient Dispo - continue PCU, COVID unit Total Time Total Time Spent Total Time Spent (In Minutes): 32 Discharge Plan Discharge Items Patient Disposition: Transfer Inpatient Rehab Fac Reason For Visit: HYPERGLYCEMIA, SOB, BILATERAL INFILTRATES Discharge Diagnosis: hyperglycemia/ SOB, Bilateral infiltrates Condition on Discharge: Fair Activity: Resume your previous activity Non-emergency contact: Primary Care Provider Call non-emergency contact if: you have any medication questions Follow-up/Referrals: Nicolette Marquez MD [Primary Care Provider] - (office will call with appoinment) Diet: Carb Consistent or DM2 and Low Sodium (2gm) Addtl Attending Provider Instructions: You have been hospitalized for an acute medical problem. During your stay at [facility], we have made an effort to correct the problem that brought you to the hospital while keeping you as comfortable as possible. Medications were used to bring your condition under control and your discharge instructions will include directions for any medications you should take after leaving the hospital. Please make sure you see your Primary Care Provider as part of your follow up plan. Pending Studies at Discharge: No Stand-Alone Forms: My [facility] Skilled Items Patient informed of condition?: Yes DNR: Yes Discharge Level of Care: Acute rehab Communicable Disease: Yes Discharge Prognosis: Stable Lines: None Urinary Catheter: No Medications and DC Order Prescriptions: New amlodipine [Norvasc] 5 mg Tablet 10 mg PO QAM Qty: 30 RF: 0 Continued albuterol sulfate 2.5 mg /3 mL (0.083 %) solution for nebulization 2.5 mg INHALATION Q4H PRN (Reason: Shortness Of Breath) Qty: 75 RF: 3 insulin aspart U-100 [Novolog Flexpen U-100 Insulin] 100 unit/mL (3 mL) insulin pen See Rx Instructions SQ TID 90 Days Qty: 45 RF: 3 clopidogrel 75 mg tablet 75 mg PO DAILY Qty: 90 RF: 3 gabapentin 100 mg capsule 100 mg PO TID Qty: 270 RF: 3 (DME) OneTouch Verio test strips Strip See Rx Instructions .ROUTE .MEDSUPPLY Qty: 100 RF: 3 (DME) lancets [BD Ultra Fine Lancets] 33 gauge misc See Rx Instructions .ROUTE .MEDSUPPLY Qty: 100 RF: 3 isosorbide mononitrate 120 mg tablet extended release 24 hr 120 mg PO BID Qty: 180 RF: 3 spironolactone 50 mg tablet 50 mg PO QAM Qty: 90 RF: 3 hydralazine 100 mg tablet 100 mg PO TID Qty: 270 RF: 3 tramadol 50 mg tablet See Rx Instructions .ROUTE .COMPLEX Qty: 120 RF: 3 (DME) pen needle, diabetic [BD Ultra-Fine Short Pen Needle] 31 gauge x 5/16" needle See Dose Instructions .ROUTE .MEDSUPPLY Qty: 400 RF: 1 Basaglar NoamikPen U-100 Insulin 100 unit/mL (3 mL) insulin pen 30 unit subcut HS 90 Days Qty: 30 RF: 3 pantoprazole 40 mg tablet,delayed release (DR/EC) 40 mg PO DAILY Qty: 90 RF: 3 carvedilol 25 mg tablet 25 mg PO BID Qty: 180 RF: 3 nitroglycerin [Nitrostat] 0.4 mg tablet, sublingual 0.4 mg Sublingual UD PRN (Reason: Chest Pain) Qty: 25 RF: 5 albuterol sulfate 90 mcg/actuation HFA aerosol inhaler 2 puff Inhalation QID PRN (Reason: Shortness Of Breath Or Wheezing) Qty: 8.5 RF: 1 (DME) blood-glucose meter [MobiMagicuch Verio Flex Start] Kit See Rx Instructions .ROUTE .MEDSUPPLY Qty: 1 RF: 0 iron 18 mg Tablet 18 mg PO QDL RF: 0 Metamucil 3.4 gram/5.4 gram Powder 1 tbsp PO HS RF: 0 multivitamin [Multiple Vitamins] Tablet 1 tab PO QDL RF: 0 aspirin 81 mg Tablet,Delayed Release (Dr/Ec) 81 mg PO QAM RF: 0 Glucagon Emergency Kit (human) 1 mg Recon Soln 1 dose subcut UD PRN (Reason: Hypoglycemia) RF: 0 docusate sodium 100 mg Capsule 100 mg PO HS RF: 0 fluticasone propionate [Flonase Allergy Relief] 50 mcg/actuation [place],Suspension 1 spray INTRANASAL BID PRN (Reason: Congestion) RF: 0 cinnamon bark [Cinnamon] 500 mg Capsule 1,000 mg PO DAILY PRN (Reason: Hyperglycemia) RF: 0 Citracal-D3 Plus Magnesium 250-40-125 mg-mg-unit tablet 1 tab PO Q OTHER DAY RF: 0 metoclopramide HCl 5 mg tablet 5 mg PO ACHS RF: 0 rosuvastatin 5 mg tablet 5 mg PO 2XWK RF: 0 Changed bumetanide 2 mg tablet 2 mg PO DAILY Qty: 0 RF: 0 Discontinued amlodipine [Norvasc] 5 mg tablet 5 mg PO QAM Qty: 90 RF: 3 Discharge Orders: Discharge Order (Routine); Ordered 01/12/21 Ordered By: Jeffrey Lyons Admission Data Admit Date/Time: 12/31/20 02:22 Attending Provider: Jeffrey Lyons Admit Provider: Galina Gaston Primary Care Provider: Nicolette Marquez Other Providers: Galina Gaston ; Philip Gill ; Musa Nickerson ; [facility] Other Interventions: Discharge Summary Assessment (RN) Last Done: 01/12/21 17:54 Coding Level of Care Code D/C DAY MANAGEMENT >30 MINS Diagnoses COVID-19 U07.1 Pneumonia J18.9 Troponin level elevated R77.8 Congestive heart failure I50.9 Heart failure chronicity: unspecified Heart failure type: unspecified Diabetes mellitus with hyperglycemia E11.65 CKD (chronic kidney disease) stage 4, GFR 15-29 ml/min N18.4 CAD (coronary artery disease) I25.10 Hypertension I10 Hyperlipidemia E78.5 GERD (gastroesophageal reflux disease) K21.9
== END 2021-01-12 19:45 | DRG 177 ==
LOC: ED 23:53 → SUATTDRO 12-31 02:22 → 2S 12-31 02:22 → 2E 01-04 01:55
DX: Z68.41 Body mass index [BMI] 40.0-44.9, adult; Z66 Do not resuscitate; N39.0 Urinary tract infection, site not specified; N18.4 Chronic kidney disease, stage 4 (severe); E66.9 Obesity, unspecified; Z86.16 Personal history of COVID-19; I50.32 Chronic diastolic (congestive) heart failure; Z79.4 Long term (current) use of insulin; Z88.2 Allergy status to sulfonamides; K21.9 Gastro-esophageal reflux disease without esophagitis; E11.22 Type 2 diabetes mellitus with diabetic chronic kidney disease; N17.9 Acute kidney failure, unspecified; J96.01 Acute respiratory failure with hypoxia; J45.909 Unspecified asthma, uncomplicated; Z95.1 Presence of aortocoronary bypass graft; U07.1 COVID-19; I24.8 Other forms of acute ischemic heart disease; E78.5 Hyperlipidemia, unspecified; Z88.8 Allergy status to other drugs, medicaments and biological substances; I25.10 Atherosclerotic heart disease of native coronary artery without angina pectoris; E11.65 Type 2 diabetes mellitus with hyperglycemia; J12.82 Pneumonia due to coronavirus disease 2019; E11.40 Type 2 diabetes mellitus with diabetic neuropathy, unspecified

== ENCOUNTER 2021-01-20 19:20 | Inpatient (IN) ==
[2021-01-20] MEDS ORDERED: STAT IV Infusion **Titration per Protocol STA (19:48)
--- NOTE | 2021-01-20 19:57 | XRay Report ---
XR chest 1V portable CLINICAL HISTORY: SEPSIS COMPARISON STUDY: Chest CT December 31, 2020. Chest radiograph January 03, 2021. FINDINGS: Cardiomegaly is unchanged. There are median sternotomy wires. There is no pneumothorax or p leural effusion. Interstitial thickening and bilateral opacities are noted. These have improved since exam of January 03, 2021. IMPRESSION: 1. Interstitial thickening and bilateral opacities which have improved since exam of January 03, 2021. The findings may reflect an infectious process or pulmonary edema. 2. Cardiomegaly. ACT 112: Negative or not required by law. Electronically signed by: Zaheer Marquez M.D. 01/20/2021 7:56 PM
[2021-01-20] MEDS ORDERED: NITROGLYCERIN/D5W 100MCG/ML 250 ML IV SCH (20:00)
[2021-01-20 20:28] LABS: Basophils # (auto) 0.01 K/uL (0-0.2); Basophils % (auto) 0.2 %; Eosinophils # (auto) 0.07 K/uL (0-0.5); Eosinophils % (auto) 1.1 %; Hematocrit (blood only) 27.7 % (37-47); Hemoglobin 8.8 g/dL (12.0-16.0); Immature Granulocytes # (auto) 0.02 K/uL (0.00-0.02); Immature Granulocytes % (auto) 0.3 %; Lymphocytes # (auto) 0.43 K/uL (1.2-3.4); Lymphocytes % (auto) 6.9 %; Mean Corpuscular Hemoglobin 30.4 pg (25-34); Mean Corpuscular Hgb Conc 31.8 g/dL (32-36); Mean Corpuscular Volume 95.8 fL (80-100); Mean Platelet Volume 12.2 fL (7.4-10.4); Monocytes # (auto) 0.45 K/uL (0.11-0.59); Monocytes % (auto) 7.3 %; Neutrophils # (auto) 5.21 K/uL (1.4-6.5); Neutrophils % (auto) 84.2 %; Platelet Count 160 K/uL (130-400); RDW Coefficient of Variation 15.3 % (11.5-14.5); RDW Standard Deviation 52.7 fL (36.4-46.3); Red Blood Count 2.89 M/uL (4.2-5.4); White Blood Count 6.19 K/uL (4.8-10.8)
[2021-01-20 20:32] LABS: Base Excess VBG 0.1 mEq/L; Oxygen Saturation VBG 76.8 %; pH VBG 7.36 (7.36-7.41)
[2021-01-20 20:38] LABS: Partial Thromboplastin Time 25.5 Seconds (21.0-31.0); Prothrombin Time 10.5 Seconds (9.0-12.0)
[2021-01-20 20:45] LABS: Alanine Aminotransferase 104 U/L (12-78); Albumin Level 2.8 gm/dl (3.4-5.0); Aspartate Aminotransferase 74 U/L (15-37); BUN Creatinine Ratio 42.8 (10-20); Blood Urea Nitrogen 96 mg/dl (7-18); Calcium 8.5 mg/dl (8.5-10.1); Carbon Dioxide 27 mmol/L (21-32); Chloride 98 mmol/L (98-107); Est GFR (African American) 23.3 ml/min; Est GFR (Non-African American) 20.1 ml/min; Glucose 140 mg/dl (70-99); Magnesium 2.4 mg/dl (1.8-2.4); Potassium 4.8 mmol/L (3.5-5.1); Sodium 131 mmol/L (136-145)
[2021-01-20 20:50] LABS: Albumin Globulin Ratio 0.9 (0.9-2); Alkaline Phosphatase 36 U/L (45-117); Bilirubin,Total 0.3 mg/dl (0.2-1); Globulin 3.3 gm/dl (2.5-4.0); NT Pro B Type Natriuretic Pept 11945 pg/ml (0-1800); Total Protein 6.1 gm/dl (6.4-8.2); Troponin I < 0.015 ng/ml (0-0.045)
[2021-01-20] MEDS ORDERED: FUROSEMIDE 40 MG/4 ML VIAL IV STA (20:53)
--- NOTE | 2021-01-20 22:04 | History & Physical Report ---
Date of Service January 20, 2021 Assessment & Plan (1) Acute and chronic respiratory failure: Plan: Mrs. Sosa is a 80 yo woman with recent COVID-19 pneumonia came in from acute rehab for worsening breathing, weight gain and peripheral edema. - patient was titrated off bipap onto supplemental O2 via NC on admission with appropriate saturation. - Nitro drip discontinued on admission - As for etiology: - patient is afebrile, WBC normal, procal not elevated and CXR appears improved from previous. Infection appears unlikley. - Her Pro-BNP was elevated to 11k, however it was elevated to > 23k during previous hospital stay. Weight on discharge from previous hospital stay 98kg, 110kg on admission (although I question accuracy). She did appear to have peripheral edema, however her CXR did not show remarkable pulmonary vasc. congestion or effusions. Diastolic CHF exacerbation is plausible - although coming from a rehab setting, dietary indiscretion and medication non-compliance seem unlikley. She was given 40mg Iv lasix in the ED. - lucila leone ordered - serial exams/monitoring (2) Anemia: Plan: - Hgb 8.8; MCV 95 - normocytic anemia - etiology uncertain - although she appears to be on a home oral iron supplement - consistent with values on previous hospital stay - no signs of active bleeding - trend CBC (3) CKD (chronic kidney disease) stage 4, GFR 15-29 ml/min: Plan: - Cr at 2.25, at baseline - avoid nephrotoxins (4) Congestive heart failure: Plan: - BNP elevated to 11k as above, although down from previous admission - no evidence of pulm vasc congestion on CXR - peripheral edema may simply be due to venous insufficiency and/or low albumin rather than diastolic CHF exacerbation; continue compression stockings. - 40mg IV lasix given in ED. Continue home dose Bumex. - continue home dose beta pamela and spironolactone (5) Type 2 diabetes mellitus with kidney complication, with long-term current use of insulin: Plan: - A1c 7.5 on 01/01, at goal for age - continue home insulin regimen with novolog sliding scale - blood sugar checks ACHS - continue home dose statin - not on an ARI/ARB, likely due to kidney disease (6) CAD (coronary artery disease): Plan: - continue home dose ASA, plavix, statin, isosorbide mononitrate Diet: DM carb consistent, heart healthy, low sat DVT ppx: Heparin 5,000 units SQ q12 Dispo: Med/Surg w. tele. PT/OT ordered. COVID 19 testing neg; negative pressure room not necessary Code: Conditional. Okay with chest compressions, no intubation. History of Present Illness Primary Care Provider: Nicolette Marquez MD Mrs. Sosa is a 80 yo woman who was brought to the [facility] ED from [facility] rehab due to concern for worsening breathing. Of note, she was admitted to [facility] from 12/31/20 to 01/12/21 for trouble breathing - on admission her COVID 19 testing was negative. However COVID testing was repeated on 01/03/21 which returned positive. She was treated with 8 days of IV dexamethasone - she was not a candidate for remdesirvir due to her underlying renal disease. She required BiPAP during her last admission but fortunately never had to be intubated. She was discharged to [facility] for acute rehab. For the first several days at [facility], Mrs. Sosa says she felt quite well. It was not until today that she began to have trouble breathing. She also noticed her abdominal girth had increased and her lower legs seemed to be more swollen than usual. She did not have physical therapy today - but did have a "tough" session yesterday (01/19/21). Per discussion with ED personnel, her oxygen saturation dropped to 89% at [facility]. Staff at [facility] also told nursing she had a weight gain (unclear of how much) and worsening swelling of her legs over the past 2 days. She was placed on Bipap prior to arrival to [facility]. Her blood pressure was reportedly borderline low, so she was placed on a nitro drip. She has no underlying history of lung disease. In the ED, she was afebrile, with a HR of 47 and a BP of 143/70; RR was normal at 12 and she was satting 100% on bipap. Her WBC was normal; she was lymphopenic. Her Hgb was 8.8. MCV 95. Coags WNL. Cr was 2.25. Na was low at 131, K normal at 4.8. AST elevated to 74, ALT to 104. Lactate not elevated. Procal not elevated. VBG showed a pH of 7.36, pCO2 of 47. Trop undetectable. BNP elevated to 11,945. COVID 19 neg. Blood cultures were drawn. She was given 40mg IV lasix Allergies Allergy/AdvReac Type Severity Reaction Status Date / Time Sulfa (Sulfonamide Allergy Intermediate RASH/PRURIT Verified 01/20/21 21:18 Antibiotics) IS sulfamethoxazole Allergy Intermediate RASH/PRURIT Verified 01/20/21 21:18 [From Bactrim] IS trimethoprim [From Bactrim] Allergy Intermediate RASH/PRURIT Verified 01/20/21 21:18 IS chlorpropamide AdvReac Intermediate N/V Verified 01/20/21 21:18 omeprazole AdvReac Intermediate interacts Verified 01/20/21 21:18 w/ clopidigrol ARI Inhibitors AdvReac Unknown AVOIDS Verified 01/20/21 21:18 SECONDARY TO "OTHER MEDICATIONS" PER PT Home Medications Medication Instructions Recorded Confirmed Type aspirin 81 mg tablet,delayed 81 mg PO QAM 04/23/18 01/20/21 History release docusate sodium 100 mg capsule 100 mg PO HS 04/23/18 01/20/21 History fluticasone propionate 50 1 spray INTRANASAL BID PRN 04/23/18 01/20/21 History mcg/actuation nasal spray,suspension (Flonase Allergy Relief) multivitamin (Multiple Vitamins) 1 tab PO QDL 04/23/18 01/20/21 History iron 18 mg tablet 18 mg PO QDL 11/28/18 01/20/21 History psyllium husk 3.4 gram/5.4 gram 1 tbsp PO HS 11/28/18 01/20/21 History oral powder (Metamucil) calcium 1 tab PO Q OTHER DAY tab 01/21/19 01/20/21 History [id number]-Th-boron 250 mg-40 mg-125 unit tablet (Citracal-D3 Plus Magnesium) albuterol sulfate 90 mcg/actuation 2 puff INHALATION QID PRN #8.5 gm 05/22/19 01/20/21 Rx aerosol inhaler albuterol sulfate 2.5 mg INHALATION Q4H PRN #75 ml 06/03/19 01/20/21 Rx insulin aspart U-100 100 unit/mL See Rx Instructions SQ TID 90 Days 10/20/20 09/03/21 Rx (3 mL) subcutaneous pen (Novolog #45 ml Flexpen U-100 Insulin aspart) clopidogrel 75 mg tablet 75 mg PO DAILY #90 tab 03/28/20 01/20/21 Rx gabapentin 100 mg capsule 100 mg PO TID #270 cap 03/28/20 12/31/20 Rx blood-glucose meter (OneTouch #1 ea 04/05/20 12/14/20 History Verio Flex Start) blood sugar diagnostic (OneTouch #100 ea 04/06/20 12/14/20 Rx Verio test strips) lancets 33 gauge (BD Ultra Fine #100 ea 04/06/20 12/14/20 Rx Lancets) carvedilol 25 mg tablet 25 mg PO BID #180 tab 06/01/20 01/20/21 Rx spironolactone 50 mg tablet 50 mg PO QAM #90 tab 08/09/20 01/20/21 Rx hydralazine 100 mg tablet 100 mg PO TID #270 tab 08/29/20 01/20/21 Rx BD Ultra-Fine Short Pen Needle 31 #400 ea NS 08/30/20 12/14/20 Rx gauge x 5/16" (pen needle, diabetic) Basaglar KwikPen U-100 Insulin 100 30 unit SUBCUT HS 90 Days #30 ml NS 10/24/20 01/20/21 Rx unit/mL (3 mL) subcutaneous (insulin glargine) pantoprazole 40 mg tablet,delayed 40 mg PO DAILY #90 tab 11/01/20 01/20/21 Rx release nitroglycerin 0.4 mg sublingual 0.4 mg SUBLINGUAL UD PRN #25 tab 12/12/20 01/20/21 Rx tablet (Nitrostat) metoclopramide HCl 5 mg tablet 5 mg PO ACHS 12/31/20 01/20/21 History rosuvastatin 5 mg tablet 5 mg PO 2XWK 12/31/20 01/20/21 History bumetanide 2 mg tablet 2 mg PO DAILY #0 tab 01/12/21 01/20/21 Rx amlodipine 10 mg tablet 10 mg PO DAILY 01/20/21 01/20/21 History gabapentin 400 mg capsule 400 mg PO HS 01/20/21 01/20/21 History isosorbide mononitrate 60 mg 60 mg PO BID 01/20/21 01/20/21 History tablet,extended release 24 hr tramadol 50 mg tablet 50 - 100 mg PO BID PRN 01/20/21 01/20/21 History Past Med/Surg History Medical History Acute asthmatic bronchitis Acute diastolic CHF (congestive heart failure) Acute respiratory failure with hypoxia ELEAZAR (acute kidney injury) Anemia Asthma CAD (coronary artery disease) Chronic diastolic (congestive) heart failure COVID-19 Diabetic neuropathy Elevated troponin Gastroparesis GERD (gastroesophageal reflux disease) Hyperlipidemia Hypertension Lumbar canal stenosis Osteoarthritis of knee Osteopenia Peripheral artery disease Pneumonia due to COVID-19 virus Renal artery stenosis Secondary hyperparathyroidism Sinusitis Type 2 diabetes mellitus with kidney complication, 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, with long-term current use of insulin Vitamin D deficiency Surgical History History of back surgery History of cataract surgery History of cholecystectomy History of coronary artery bypass graft History of coronary artery stent placement History of hysterectomy History of tonsillectomy S/P carpal tunnel release Family History Unknown Coronary heart disease Diabetes Brain cancer Father Kidney disease Brother COPD (chronic obstructive pulmonary disease) Prostate cancer Myocardial infarction Hypertension Heart disease Sister Lung cancer Denies family history of Rheumatoid arthritis Sudden SIDS (sudden syndrome) Ovarian cancer Deep vein thrombosis Osteoporosis Dyslipidemia Cerebral aneurysm Alzheimer disease Bipolar disorder Clotting disorder Crohn's disease Dementia Depression Osteoarthritis Breast cancer Schizophrenia Congenital kidney disease Gestational diabetes Colorectal cancer Pulmonary embolism Lung disease Cancer Ulcerative colitis Colonic polyp Stroke Asthma Cystic kidney disease Social History Smoking Status: Never smoker Second Hand Exposure: No; Hx Alcohol Use: No Hx Substance Use: No Preferred Language: Upper Sorbian Communication Ability: Effective Visual Impairment: No Limitations Hearing Ability: Normal Observer Helper Required: No Beliefs That Will Affect Care: None marital status: / Current Living Situation: Alone current occupational status: retired and disabled 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[employer], 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 How many Children do You have: 3 Other Information That Helps Us Care for You: No Feels Safe at Home: Yes Safety Concerns: Feels Safe At This Time Childhood Exposure to Second-Hand Smoke: Yes caffeine: Yes (coffee in AM, rarely a soda) during the past year weight has: remained stable Dental Care, Regularly: No Physical Activity Frequency: 1-2 Times per Week Seatbelt Use: always Sunscreen Use: Yes Assistive Devices: Cane and Walker Review of Systems Constitutional: no fever and no chills Physical Exam Constitutional: WD/WN, vitals as above cooperative Eyes: + anicteric sclerae ENMT: external ear and nose normal, oropharynx normal Neck: normal visual inspection and trachea midline Respiratory: normal respiratory effort; no labored breathing and no cough Auscultation: + diminished lung sounds, + crackles and + wheezes bipap in place Cardiovascular: RRR, no murmur, no edema Heart Sounds: normal S1 and normal S2 Extremities: + pedal edema (+2) wearing compression stockings Gastrointestinal (Abdomen): normal bowel sounds, soft, nontender, no hepatosplenomegaly Musculoskeletal: Head/Neck/Chest: normocephalic and head atraumatic Skin: + ecchymosis (abdomen, upper extremities, secondary to heparin use) Neurologic: moves all extremities Psychiatric: A+Ox3, euthymic affect Results & Data Results & Data ([place]) Vital Signs (Past 12 Hours) Vital Signs Temp Pulse Resp BP Pulse Ox 01/20/21 20:48 47 L 12 100 01/20/21 20:45 46 L 12 143/70 H 100 01/20/21 20:30 56 L 15 149/50 H 99 01/20/21 20:20 47 L 13 100 01/20/21 20:17 67 15 100 01/20/21 20:01 53 L 11 L 143/70 H 100 01/20/21 20:00 15 100 01/20/21 19:59 59 L 12 173/70 H 100 01/20/21 19:37 16 100 01/20/21 19:35 57 L 19 157/44 H 100 01/20/21 19:27 36.5 C 60 13 157/44 H 100 Supervising Physician Co-Signing Physician Notes Attending addendum: I have physically seen this patient, have supervised the medical residents activities, and agree with the H&P unless as otherwise noted. Assessment and Plan: Acute on chronic respiratory failure/CAD/hypertension/CHF- Negative COVID-19 test in the ED this evening Discontinue nitroglycerin drip and BiPAP, taper to nasal cannula oxygen or mask Duonebs every 4 hours while awake and every 2 hours when necessary. Assess response to Lasix 40 mg IV given in the ED Continue bumetanide, carvedilol, clopidogrel and amlodipine with hold parameters Anemia- Hemoglobin stable at 8.8 Follow serially Diabetes mellitus- Continue home insulin regimen Placed in Accu-Cheks before meals and at bedtime with NovoLog coverage per scale Remaining orders and notations as noted Resident Activity Tracking Resident Involvement: Resident Care Provided Care Provided: Adult Hospital Medicine (1) Congestive heart failure Heart failure chronicity: unspecified Heart failure type: unspecified Qualified Code(s): I50.9 - Heart failure, unspecified
[2021-01-20 22:39] LABS: Appearance Urine Clear (Clear); Bacteria Urine Automated Negative (Negative); Bilirubin Urine Negative (Negative); Blood Urine Negative (Negative); Color Urine Yellow; Epithelial Cell Urine Auto 20-30 /lpf (0-5); Glucose Urine UA Negative (Negative); Ketones Urine Negative (Negative); Leukocyte Esterase Urine Negative (Negative); Nitrite Urine Negative (Negative); Protein Urine 2+ (Negative); RBC Urine Automated 0-4 /hpf (0-4); Specific Gravity Urine 1.014 (1.000-1.030); Urobilinogen Urine Negative (Negative)
[2021-01-20] MEDS ORDERED: ALBUT/IPRATROP 3MG/0.5MG NEB 3 ML VIAL NEB STA (23:48)
[2021-01-21] MEDS ORDERED: FLUTICASONE PROPIONATE NA SPR 16 GM BTL PRN (00:31)
[2021-01-21] MEDS ORDERED: ONDANSETRON INJ 2 MG/ML 2 ML VIAL IV PRN (00:31)
[2021-01-21] MEDS ORDERED: [UNRECOGNIZED DRUG - OTHER] PO SCH (00:31)
[2021-01-21] MEDS ORDERED: NITROGLYCERIN SL 0.4 MG/TAB TAB SL PRN (00:31)
[2021-01-21] MEDS ORDERED: GLUCAGON FOR INJ 1 MG VIAL SQ PRN (00:31)
[2021-01-21] MEDS ORDERED: GLUCOSE 10 TABS/TUBE PO PRN (00:31)
[2021-01-21] MEDS ORDERED: GLUCOSE 40% GEL 15 GM TUBE PO PRN (00:31)
[2021-01-21] MEDS ORDERED: DEXTROSE 50% 50 ML SYRINGE IV PRN (00:31)
[2021-01-21] MEDS ORDERED: ALBUTEROL HFA 8 GM INHALER INH PRN (00:31)
[2021-01-21] MEDS ORDERED: ALBUTEROL 0.083% NEBU SOLN 3 ML VIAL INH PRN (00:31)
[2021-01-21] MEDS ORDERED: POLYETHYLENE (MIRALAX) 17 GM PACK PO PRN (00:31)
[2021-01-21] MEDS ORDERED: CARBOHYDRATES FOR HYPOGLYCEMIA PO PRN (00:31)
--- NOTE | 2021-01-21 02:14 | Emergency Department Note ---
History of Present Illness General Chief Complaint: Shortness of Breath/Dyspnea Stated Complaint: DIFFICULTY BREATHING Time Seen by Provider: 01/20/21 19:30 History of Present Illness Provider Complaint: shortness of breath Onset (ago): week(s) (1) Severity: severe Relieved By: + oxygen and + upright position Exacerbated By: + lying flat and + exertion; not by coughing Context: + recent illness (COVID) Known history of: congestive heart failure Associated symptoms: + orthopnea; no chest pain, no pain with inspiration, no fever, no cough, no wheezing, no sputum production, no lower extremity pain, no polyuria, no polydipsia, no paresthesias, no palpitations, no carpopedal spasm, no hemoptysis, no diaphoresis, no nausea/vomiting, no syncope, no abdominal pain, no sense of impending doom, no chest congestion, no dizziness or no lightheadedness Treatment prior to arrival: NIPPV (CPAP by EMS) and nitroglycerin (nitrodrip by EMS) Home Medications Medication Instructions Recorded Confirmed Type aspirin 81 mg tablet,delayed 81 mg PO QAM 04/23/18 01/20/21 History release docusate sodium 100 mg capsule 100 mg PO HS 04/23/18 01/20/21 History fluticasone propionate 50 1 spray INTRANASAL BID PRN 04/23/18 01/20/21 History mcg/actuation nasal spray,suspension (Flonase Allergy Relief) multivitamin (Multiple Vitamins) 1 tab PO QDL 04/23/18 01/20/21 History iron 18 mg tablet 18 mg PO QDL 11/28/18 01/20/21 History psyllium husk 3.4 gram/5.4 gram 1 tbsp PO HS 11/28/18 01/20/21 History oral powder (Metamucil) calcium 1 tab PO Q OTHER DAY tab 01/21/19 01/20/21 History bvs-yza-K3-Yo-xaioss-Vv-boron 250 mg-40 mg-125 unit tablet (Citracal-D3 Plus Magnesium) albuterol sulfate 90 mcg/actuation 2 puff INHALATION QID PRN #8.5 gm 05/22/19 01/20/21 Rx aerosol inhaler albuterol sulfate 2.5 mg INHALATION Q4H PRN #75 ml 06/03/19 01/20/21 Rx insulin aspart U-100 100 unit/mL See Rx Instructions SQ TID 90 Days 03/08/20 01/20/21 Rx (3 mL) subcutaneous pen (Novolog #45 ml Flexpen U-100 Insulin aspart) clopidogrel 75 mg tablet 75 mg PO DAILY #90 tab 03/28/20 01/20/21 Rx gabapentin 100 mg capsule 100 mg PO TID #270 cap 03/28/20 12/31/20 Rx blood-glucose meter (OneTouch #1 ea 04/05/20 12/14/20 History Verio Flex Start) blood sugar diagnostic (OneTouch #100 ea 04/06/20 12/14/20 Rx Verio test strips) lancets 33 gauge (BD Ultra Fine #100 ea 04/06/20 12/14/20 Rx Lancets) carvedilol 25 mg tablet 25 mg PO BID #180 tab 06/01/20 01/20/21 Rx spironolactone 50 mg tablet 50 mg PO QAM #90 tab 08/09/20 01/20/21 Rx hydralazine 100 mg tablet 100 mg PO TID #270 tab 08/29/20 01/20/21 Rx BD Ultra-Fine Short Pen Needle 31 #400 ea NS 08/30/20 12/14/20 Rx gauge x 5/16" (pen needle, diabetic) Basaglar KwikPen U-100 Insulin 100 30 unit SUBCUT HS 90 Days #30 ml NS 10/24/20 01/20/21 Rx unit/mL (3 mL) subcutaneous (insulin glargine) pantoprazole 40 mg tablet,delayed 40 mg PO DAILY #90 tab 11/01/20 01/20/21 Rx release nitroglycerin 0.4 mg sublingual 0.4 mg SUBLINGUAL UD PRN #25 tab 12/12/20 01/20/21 Rx tablet (Nitrostat) metoclopramide HCl 5 mg tablet 5 mg PO ACHS 12/31/20 01/20/21 History rosuvastatin 5 mg tablet 5 mg PO 2XWK 12/31/20 01/20/21 History bumetanide 2 mg tablet 2 mg PO DAILY #0 tab 01/12/21 01/20/21 Rx amlodipine 10 mg tablet 10 mg PO DAILY 01/20/21 01/20/21 History gabapentin 400 mg capsule 400 mg PO HS 01/20/21 01/20/21 History isosorbide mononitrate 60 mg 60 mg PO BID 01/20/21 01/20/21 History tablet,extended release 24 hr tramadol 50 mg tablet 50 - 100 mg PO BID PRN 01/20/21 01/20/21 History Allergies Allergy/AdvReac Type Severity Reaction Status Date / Time Sulfa (Sulfonamide Allergy Intermediate RASH/PRURIT Verified 01/20/21 21:18 Antibiotics) IS sulfamethoxazole Allergy Intermediate RASH/PRURIT Verified 01/20/21 21:18 [From Bactrim] IS trimethoprim [From Bactrim] Allergy Intermediate RASH/PRURIT Verified 01/20/21 21:18 IS chlorpropamide AdvReac Intermediate N/V Verified 01/20/21 21:18 omeprazole AdvReac Intermediate interacts Verified 01/20/21 21:18 w/ clopidigrol ARI Inhibitors AdvReac Unknown AVOIDS Verified 01/20/21 21:18 SECONDARY TO "OTHER MEDICATIONS" PER PT Past Med/Surg History Medical History Acute asthmatic bronchitis Acute diastolic CHF (congestive heart failure) Acute respiratory failure with hypoxia ELEAZAR (acute kidney injury) Anemia Asthma CAD (coronary artery disease) Chronic diastolic (congestive) heart failure COVID-19 Diabetic neuropathy Elevated troponin Gastroparesis GERD (gastroesophageal reflux disease) Hyperlipidemia Hypertension Lumbar canal stenosis Osteoarthritis of knee Osteopenia Peripheral artery disease Pneumonia due to COVID-19 virus Renal artery stenosis Secondary hyperparathyroidism Sinusitis Type 2 diabetes mellitus with kidney complication, 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, with long-term current use of insulin Vitamin D deficiency Surgical History History of back surgery History of cataract surgery History of cholecystectomy History of coronary artery bypass graft History of coronary artery stent placement History of hysterectomy History of tonsillectomy S/P carpal tunnel release Family History Unknown Coronary heart disease Diabetes Brain cancer Father Kidney disease Brother COPD (chronic obstructive pulmonary disease) Prostate cancer Myocardial infarction Hypertension Heart disease Sister Lung cancer Denies family history of Rheumatoid arthritis Sudden SIDS (sudden infant syndrome) Ovarian cancer Deep vein thrombosis Osteoporosis Dyslipidemia Cerebral aneurysm Alzheimer disease Bipolar disorder Clotting disorder Crohn's disease Dementia Depression Osteoarthritis Breast cancer Schizophrenia Congenital kidney disease Gestational diabetes Colorectal cancer Pulmonary embolism Lung disease Cancer Ulcerative colitis Colonic polyp Stroke Asthma Cystic kidney disease Social History Smoking Status: Unknown if ever smoked Second Hand Exposure: No; Hx Alcohol Use: No Hx Substance Use: No Preferred Language: [place]i Communication Ability: Effective Visual Impairment: No Limitations Hearing Ability: Normal Director Of Casework Services Required: No Beliefs That Will Affect Care: None marital status: / Current Living Situation: Alone current occupational status: retired and disabled 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[employer], 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 How many Children do You have: 3 Feels Safe at Home: Yes Childhood Exposure to Second-Hand Smoke: Yes caffeine: Yes (coffee in AM, rarely a soda) during the past year weight has: remained stable Dental Care, Regularly: No Physical Activity Frequency: 1-2 Times per Week Seatbelt Use: always Sunscreen Use: Yes Assistive Devices: Denture - Upper and Denture - Lower Review of Systems Unable to obtain due to patient's respiratory distress Physical Exam Vital Signs: Vital Signs - 24 hr 01/20/21 19:27 01/20/21 19:35 01/20/21 19:37 Temperature 36.5 C Temperature Source Oral Pulse Rate 60 57 L Pulse Rate from Sp O2 Sensor 53 L Respiratory Rate 13 19 16 Respiratory Effort / Characteristics Non-Labored Sponta neous Non-Labored Sponta neous Respiratory Depth Deep Respiratory Patter n Regular Blood Pressure 157/44 H 157/44 H Blood Pressure Yamilet n 81 81 Pulse Oximetry 100 100 100 Oxygen Delivery Me thod BiPAP BiPAP BiPAP Fraction of Inspir ed Oxygen 30 30 Sepsis Recent Feve r Within 48 Hours No Sepsis New/Unexpla ined Change in Men german Status Yes Sepsis Action Take n by Nursing No Action Required 01/20/21 19:59 01/20/21 20:00 01/20/21 20:01 Temperature Temperature Source Pulse Rate 59 L 53 L Pulse Rate from Sp O2 Sensor 48 L Respiratory Rate 12 15 11 L Respiratory Effort / Characteristics Labored Respiratory Depth Respiratory Patter n Blood Pressure 173/70 H 143/70 H Blood Pressure Yamilet n 104 94 Pulse Oximetry 100 100 100 Oxygen Delivery Me thod BiPAP BiPAP BiPAP Fraction of Inspir ed Oxygen Sepsis Recent Feve r Within 48 Hours Sepsis New/Unexpla ined Change in Men german Status Sepsis Action Take n by Nursing 01/20/21 20:06 01/20/21 20:10 01/20/21 20:17 Temperature Temperature Source Pulse Rate 67 Pulse Rate from Sp O2 Sensor Respiratory Rate 15 Respiratory Effort / Characteristics Labored Respiratory Depth Normal Respiratory Patter n Regular Blood Pressure Blood Pressure Yamilet n Pulse Oximetry 100 Oxygen Delivery Me thod BiPAP BiPAP BiPAP Fraction of Inspir ed Oxygen Sepsis Recent Feve r Within 48 Hours Sepsis New/Unexpla ined Change in Men german Status Sepsis Action Take n by Nursing 01/20/21 20:20 01/20/21 20:30 01/20/21 20:45 Temperature Temperature Source Pulse Rate 47 L 56 L 46 L Pulse Rate from Sp O2 Sensor 43 L Respiratory Rate 13 15 12 Respiratory Effort / Characteristics Respiratory Depth Respiratory Patter n Blood Pressure 149/50 H 143/70 H Blood Pressure Yamilet n 83 94 Pulse Oximetry 100 99 100 Oxygen Delivery Me thod BiPAP BiPAP BiPAP Fraction of Inspir ed Oxygen Sepsis Recent Feve r Within 48 Hours Sepsis New/Unexpla ined Change in Men german Status Sepsis Action Take n by Nursing 01/20/21 20:48 01/20/21 20:53 01/20/21 21:01 Temperature Temperature Source Pulse Rate 47 L 55 L 58 L Pulse Rate from Sp O2 Sensor 49 L 45 L Respiratory Rate 12 14 13 Respiratory Effort / Characteristics Respiratory Depth Respiratory Patter n Blood Pressure 143/73 H 157/64 H Blood Pressure Yamilet n 96 95 Pulse Oximetry 100 100 100 Oxygen Delivery Me thod BiPAP BiPAP BiPAP Fraction of Inspir ed Oxygen Sepsis Recent Feve r Within 48 Hours Sepsis New/Unexpla ined Change in Men german Status Sepsis Action Take n by Nursing 01/20/21 21:30 01/20/21 21:40 Temperature Temperature Source Pulse Rate 59 L 60 Pulse Rate from Sp O2 Sensor 54 L 57 L Respiratory Rate 17 18 Respiratory Effort / Characteristics Respiratory Depth Respiratory Patter n Blood Pressure Blood Pressure Yamilet n Pulse Oximetry 100 100 Oxygen Delivery Me thod Fraction of Inspir ed Oxygen Sepsis Recent Feve r Within 48 Hours Sepsis New/Unexpla ined Change in Men german Status Sepsis Action Take n by Nursing Physical Exam: Physical Exam GENERAL: Patient in respiratory distress. HENT: Exam performed. -Head: Normocephalic and atraumatic. -Right Ear: External ear normal. No mastoid tenderness. -Left Ear: External ear normal. No mastoid tenderness. -Mouth/Throat: The oropharynx is clear and moist. No trismus in the jaw. No dental abscesses or uvula swelling. No oropharyngeal exudate or tonsillar abscesses. EYES: Conjunctivae and EOM are normal. Pupils are equal, round, and reactive to light. Right eye exhibits no discharge. Left eye exhibits no discharge. No scleral icterus. NECK: Normal range of motion. Neck supple. No JVD present. No spinous process t enderness present. No carotid bruit present. No rigidity. No tracheal deviation and normal range of motion present. No Brudzinski's sign and no Kernig's sign noted. CV: Normal rate, regular rhythm, normal heart sounds and intact distal pulses. Palpable radial pulses bue. PULM/CHEST: Patient tachypneic in respiratory distress. Rales bilaterally. -Chest Wall: She exhibits no tenderness. ABD: The abdomen is soft. Bowel sounds are normal. She has no distension. No mass is present. There is no tenderness. There is no rebound, no guarding, no Hughes's sign and no tenderness at McBurney's point. Rovsig negative MUSC/SKEL: 3+ pitting edema of the bilateral lower extremities. LYMPH: No cervical adenopathy. NEURO: Motor and sensation grossly intact. Course Course 1929: The patient was evaluated in room A9. A complete history and physical exam was performed Cardiac monitoring: An order was placed for continuous cardiac monitoring. The monitor shows a rate of 60 with sinus rhythm Patient in respiratory distress. Patient transition from CPAP started by EMS to BiPAP. Nitro drip continued. EMR reviewed.Patient was admitted to the hospital December 31, 2020 to January 13, 2021, she was discharged 1 week ago. She is not discharged home with any oxygen. Initially when the patient presented the patient tested negative for Covid however 3 days after her initial test she tested positive for COVID-19. 2224: Vital signs stable on BiPAP and nitro drip.Labs show creatinine of 2.25. proBNP is elevated 11,945. Lasix 40 mg IV push ordered for the patient. Covid swab negative. Patient will be admitted to the [facility] Hospitalist team Dr. Amtao notified. Administered Medications Discontinued Medications Albuterol (Albut/Ipratrop 3mg/0.5mg Neb 3 Ml Vial) 3 ml NEB NOW STA Stop: 01/20/21 23:49 Last Admin: 01/21/21 00:26 Dose: 3 ml Documented by: [id number] Furosemide (Furosemide 40 Mg/4 Ml Vial) 40 mg IV NOW STA Stop: 01/20/21 20:54 Last Admin: 01/20/21 21:35 Dose: 40 mg Documented by: [id number] Nitroglycerin/Dextrose (Nitroglycerin/D5w 100 Mcg/Ml) 250 mls @ 3 mls/hr IV .Q24H NAVJOT; Protocol Stop: 02/19/21 19:59 Last Titration: 01/21/21 00:41 Dose: 0 mcg/min, 0 mls/hr Documented by: [id number] Titration: 01/20/21 21:39 Dose: 0 mcg/min, 0 mls/hr Documented by: [id number] Admin: 01/20/21 19:40 Dose: 15 mcg/min, 9 mls/hr Documented by: [id number] Cosigned by: [id number] Medical Decision Making Laboratory Data Result diagrams: 01/20/21 20:19 01/20/21 20:19 Lab Results 01/20/21 01/20/21 01/20/21 Range/Units 20:04 20:04 20:19 WBC 6.19 (4.8-10.8) K/uL RBC 2.89 L (4.2-5.4) M/uL Hgb 8.8 L (12.0-16.0) g/dL Hct 27.7 L (37-47) % MCV 95.8 (80-100) fL MCH 30.4 (25-34) pg MCHC 31.8 L (32-36) g/dL RDW Std Deviation 52.7 H (36.4-46.3) fL RDW Coeff of Duy 15.3 H (11.5-14.5) % Plt Count 160 (130-400) K/uL MPV 12.2 H (7.4-10.4) fL Immature Gran % (Auto) 0.3 % Neut % (Auto) 84.2 % Lymph % (Auto) 6.9 % [place] % (Auto) 7.3 % Eos % (Auto) 1.1 % Baso % (Auto) 0.2 % Neut # (Auto) 5.21 (1.4-6.5) K/uL Lymph # (Auto) 0.43 L (1.2-3.4) K/uL [place] # (Auto) 0.45 (0.11-0.59) K/uL Eos # (Auto) 0.07 (0-0.5) K/uL Baso # (Auto) 0.01 (0-0.2) K/uL Immature Gran # (Auto) 0.02 (0.00-0.02) K/uL PT (9.0-12.0) Seconds INR (0.9-1.1) APTT (21.0-31.0) Seconds PTT Ratio VBG pH (7.36-7.41) VBG pCO2 (38-50) mmHg VBG pO2 mmHg VBG HCO3 mmol/L VBG O2 Saturation % VBG Base Excess mEq/L Barometric Pressure mm/Hg Sodium (136-145) mmol/L Potassium (3.5-5.1) mmol/L Chloride (98-107) mmol/L Carbon Dioxide (21-32) mmol/L Anion Gap (3-11) BUN (7-18) mg/dl Creatinine (0.6-1.2) mg/dl Est Cr Clr Drug Dosing Est GFR ( Amer) ml/min Est GFR (Non-Af Amer) ml/min BUN/Creatinine Ratio (10-20) Glucose (70-99) mg/dl Lactate (0.4-2.0) mmol/L Calcium (8.5-10.1) mg/dl Magnesium (1.8-2.4) mg/dl Total Bilirubin (0.2-1) mg/dl AST (15-37) U/L ALT (12-78) U/L Alkaline Phosphatase (45-117) U/L Troponin I (0-0.045) ng/ml NT-Pro-B Natriuret Pep (0-1800) pg/ml Total Protein (6.4-8.2) gm/dl Albumin (3.4-5.0) gm/dl Globulin (2.5-4.0) gm/dl Albumin/Globulin Ratio (0.9-2) Procalcitonin (0-0.5) ng/ml COVID-19 Eval Order Covid19 at [facility] [place] SARS-CoV-2 (PCR) NEGATIVE (Negative) 01/20/21 01/20/21 01/20/21 Range/Units 20:19 20:19 20:19 WBC (4.8-10.8) K/uL RBC (4.2-5.4) M/uL Hgb (12.0-16.0) g/dL Hct (37-47) % MCV (80-100) fL MCH (25-34) pg MCHC (32-36) g/dL RDW Std Deviation (36.4-46.3) fL RDW Coeff of Duy (11.5-14.5) % Plt Count (130-400) K/uL MPV (7.4-10.4) fL Immature Gran % (Auto) % Neut % (Auto) % Lymph % (Auto) % [place] % (Auto) % Eos % (Auto) % Baso % (Auto) % Neut # (Auto) (1.4-6.5) K/uL Lymph # (Auto) (1.2-3.4) K/uL [place] # (Auto) (0.11-0.59) K/uL Eos # (Auto) (0-0.5) K/uL Baso # (Auto) (0-0.2) K/uL Immature Gran # (Auto) (0.00-0.02) K/uL PT 10.5 (9.0-12.0) Seconds INR 1.0 (0.9-1.1) APTT 25.5 (21.0-31.0) Seconds PTT Ratio 1.0 VBG pH (7.36-7.41) VBG pCO2 (38-50) mmHg VBG pO2 mmHg VBG HCO3 mmol/L VBG O2 Saturation % VBG Base Excess mEq/L Barometric Pressure mm/Hg Sodium 131 L (136-145) mmol/L Potassium 4.8 (3.5-5.1) mmol/L Chloride 98 (98-107) mmol/L Carbon Dioxide 27 (21-32) mmol/L Anion Gap 6.0 (3-11) BUN 96 H (7-18) mg/dl Creatinine 2.25 H (0.6-1.2) mg/dl Est Cr Clr Drug Dosing Not Reportable Est GFR ( Amer) 23.3 ml/min Est GFR (Non-Af Amer) 20.1 ml/min BUN/Creatinine Ratio 42.8 H (10-20) Glucose 140 H (70-99) mg/dl Lactate 0.9 (0.4-2.0) mmol/L Calcium 8.5 (8.5-10.1) mg/dl Magnesium 2.4 (1.8-2.4) mg/dl Total Bilirubin 0.3 (0.2-1) mg/dl AST 74 H (15-37) U/L ALT 104 H (12-78) U/L Alkaline Phosphatase 36 L (45-117) U/L Troponin I < 0.015 (0-0.045) ng/ml NT-Pro-B Natriuret Pep 96675 H (0-1800) pg/ml Total Protein 6.1 L (6.4-8.2) gm/dl Albumin 2.8 L (3.4-5.0) gm/dl Globulin 3.3 (2.5-4.0) gm/dl Albumin/Globulin Ratio 0.9 (0.9-2) Procalcitonin (0-0.5) ng/ml COVID-19 Eval Order SARS-CoV-2 (PCR) (Negative) 01/20/21 01/20/21 Range/Units 20:19 20:19 WBC (4.8-10.8) K/uL RBC (4.2-5.4) M/uL Hgb (12.0-16.0) g/dL Hct (37-47) % MCV (80-100) fL MCH (25-34) pg MCHC (32-36) g/dL RDW Std Deviation (36.4-46.3) fL RDW Coeff of Duy (11.5-14.5) % Plt Count (130-400) K/uL MPV (7.4-10.4) fL Immature Gran % (Auto) % Neut % (Auto) % Lymph % (Auto) % [place] % (Auto) % Eos % (Auto) % Baso % (Auto) % Neut # (Auto) (1.4-6.5) K/uL Lymph # (Auto) (1.2-3.4) K/uL [place] # (Auto) (0.11-0.59) K/uL Eos # (Auto) (0-0.5) K/uL Baso # (Auto) (0-0.2) K/uL Immature Gran # (Auto) (0.00-0.02) K/uL PT (9.0-12.0) Seconds INR (0.9-1.1) APTT (21.0-31.0) Seconds PTT Ratio VBG pH 7.36 (7.36-7.41) VBG pCO2 47 (38-50) mmHg VBG pO2 45 mmHg VBG HCO3 26 mmol/L VBG O2 Saturation 76.8 % VBG Base Excess 0.1 mEq/L Barometric Pressure 734.4 mm/Hg Sodium (136-145) mmol/L Potassium (3.5-5.1) mmol/L Chloride (98-107) mmol/L Carbon Dioxide (21-32) mmol/L Anion Gap (3-11) BUN (7-18) mg/dl Creatinine (0.6-1.2) mg/dl Est Cr Clr Drug Dosing Est GFR ( Amer) ml/min Est GFR (Non-Af Amer) ml/min BUN/Creatinine Ratio (10-20) Glucose (70-99) mg/dl Lactate (0.4-2.0) mmol/L Calcium (8.5-10.1) mg/dl Magnesium (1.8-2.4) mg/dl Total Bilirubin (0.2-1) mg/dl AST (15-37) U/L ALT (12-78) U/L Alkaline Phosphatase (45-117) U/L Troponin I (0-0.045) ng/ml NT-Pro-B Natriuret Pep (0-1800) pg/ml Total Protein (6.4-8.2) gm/dl Albumin (3.4-5.0) gm/dl Globulin (2.5-4.0) gm/dl Albumin/Globulin Ratio (0.9-2) Procalcitonin 0.05 (0-0.5) ng/ml COVID-19 Eval Order SARS-CoV-2 (PCR) (Negative) Imaging Data Radiologist's Impression: Chest X-Ray 01/20/21 19:30 XR chest 1V portable CLINICAL HISTORY: SEPSIS COMPARISON STUDY: Chest CT December 31, 2020. Chest radiograph January 03, 2021. FINDINGS: Cardiomegaly is unchanged. There are median sternotomy wires. There is no pneumothorax or pleural effusion. Interstitial thickening and bilateral opacities are noted. These have improved since exam of January 03, 2021. IMPRESSION: 1. Interstitial thickening and bilateral opacities which have improved since exam of January 03, 2021. The findings may reflect an infectious process or pulmonary edema. 2. Cardiomegaly. ACT 112: Negative or not required by law. Electronically signed by: Zaheer Marquez M.D. 01/20/2021 7:56 PM ECG Data Interpretation: Sinus rhythm with a rate of 50. QRS 150. Right bundle branch block present. No ST elevation or ST depression. [facility] Narrative 1930: The patient was evaluated in room A9. A complete history and physical exam was performed Cardiac monitoring: An order was placed for continuous cardiac monitoring. The monitor shows a rate of 60 with sinus rhythm Patient in respiratory distress. Patient transition from CPAP started by EMS to BiPAP. Nitro drip continued. EMR reviewed.Patient was admitted to the hospital December 31, 2020 to January 13, 2021, she was discharged 1 week ago. She is not discharged home with any oxygen. Initially when the patient presented the patient tested negative for Covid however 3 days after her initial test she tested positive for COVID-19. 2224: Vital signs stable on BiPAP and nitro drip.Labs show creatinine of 2.25. proBNP is elevated 11,945. Lasix 40 mg IV push ordered for the patient. Covid swab negative. Patient will be admitted to the [facility] Hospitalist team Dr. Amato notified. Impression & Plan Chronic diastolic (congestive) heart failure Critical Care Time Critical Care Time: Yes Total Critical Care Time: 36 I have personally spent greater than 36 minutes of critical care time in the direct management of this patient. This includes bedside care, interpretation of diagnostic studies, and testing, discussion with consultants, patient, and family members, and other required patient management activities. This 36 minutes is in excess of all separately billable procedures. Discharge Plan Visit Data Chief Complaint: Shortness of Breath/Dyspnea Stated Complaint: DIFFICULTY BREATHING Discharge Problem: Chronic diastolic (congestive) heart failure Patient Disposition: Admitted As Inpatient Discharge Instructions Interventions: ED Discharge Assessment Last Done: 01/20/21 23:52
[2021-01-21] MEDS: PATIENT'S HEIGHT NEEDED SCH ×2 (03:44→06:23)
[2021-01-21 05:52] LABS: Eosinophils # (auto) 0.07 K/uL (0-0.5); Eosinophils % (auto) 1.3 %; Hematocrit (blood only) 26.7 % (37-47); Hemoglobin 8.7 g/dL (12.0-16.0); Immature Granulocytes # (auto) 0.02 K/uL (0.00-0.02); Immature Granulocytes % (auto) 0.4 %; Lymphocytes # (auto) 0.58 K/uL (1.2-3.4); Lymphocytes % (auto) 10.6 %; Mean Corpuscular Hemoglobin 30.7 pg (25-34); Mean Corpuscular Hgb Conc 32.6 g/dL (32-36); Mean Corpuscular Volume 94.3 fL (80-100); Mean Platelet Volume 11.5 fL (7.4-10.4); Monocytes # (auto) 0.51 K/uL (0.11-0.59); Monocytes % (auto) 9.3 %; Neutrophils # (auto) 4.31 K/uL (1.4-6.5); Neutrophils % (auto) 78.4 %; Platelet Count 142 K/uL (130-400); RDW Coefficient of Variation 15.4 % (11.5-14.5); RDW Standard Deviation 53.3 fL (36.4-46.3); Red Blood Count 2.83 M/uL (4.2-5.4); White Blood Count 5.49 K/uL (4.8-10.8)
[2021-01-21 06:22] LABS: Albumin Level 2.7 gm/dl (3.4-5.0); BUN Creatinine Ratio 42.4 (10-20); Calcium 8.5 mg/dl (8.5-10.1); Creatinine Clr Calc Pharmacy 23.2 ml/min; Est GFR (African American) 23.8 ml/min; Est GFR (Non-African American) 20.5 ml/min; Potassium 4.6 mmol/L (3.5-5.1)
[2021-01-21 06:25] LABS: Albumin Globulin Ratio 0.8 (0.9-2); Bilirubin,Total 0.5 mg/dl (0.2-1); Globulin 3.3 gm/dl (2.5-4.0)
[2021-01-21] MEDS: hydrALAZINE TAB 50 MG TAB PO SCH ×3 (08:53→20:19)
[2021-01-21] MEDS: carvediloL 25 MG TAB PO SCH ×2 (08:53→20:20)
[2021-01-21] MEDS: SPIRONOLACTONE 25 MG TAB PO SCH (08:53)
[2021-01-21] MEDS: ASPIRIN 81 MG ECTAB PO SCH (08:53)
[2021-01-21] MEDS: METOCLOPRAMIDE HCL 5 MG TABLET PO SCH ×4 (08:53→20:19)
[2021-01-21] MEDS: amLODIPine BESYLATE 5 MG TAB PO SCH (08:53)
[2021-01-21] MEDS: ISOSORBIDE MONO EXTENDED REL 60 MG TABCR PO SCH ×2 (08:53→20:20)
[2021-01-21] MEDS: PANTOprazole 40 MG TAB PO SCH (08:53)
[2021-01-21] MEDS: CLOPIDOGREL BISULFATE 75 MG TAB PO SCH (08:53)
[2021-01-21] MEDS: INSULIN ASPART 100 UNITS/ML 3 ML PEN SQ SCH ×4 (08:54→20:18)
--- NOTE | 2021-01-21 08:59 | Hospitalist Progress Note ---
Date of Service January 21, 2021 Assessment & Plan (1) Acute and chronic respiratory failure: Plan: - patient presented with A/Chronic Respiratory Failure - She clearly has a degree of Right sided CHF. Her BNP was elevated (11,000) much less than her prior (20,000) and her CXR does suggest possibly some mild pulmonary edema vs improving infiltrates (improved from 01/07-- from prior COVID) - I do believe that there is definitely a component of CHF (although R much > L) - echo (done during recent hospitalization- 01/07) reviewed showing 40-45% with Grade II DD and Right atrial enlargement (which was not seen in her prior Echo from 2019). Overall was a limited study - given her recent Covid, her CHF (with predominant Right sided symptoms) and respiratory symptoms, I am suspicious for underlying PE (although currently she is not tachycardic and her Pulse ox is stable on 2L) - As outlined above, there tends to definitely be a component of Left sided CHF (but I am not convinced that this is contributing to her degree of respiratory symptoms-- hence the concern for a PE) - At any rate, will transition PO to IV lasix with goal fluid balance of -1L - continue other rate modifying medications (Coreg, Imdur, Hydralazine) - continue aldactone (which is good for more right sided diuresis) - given concern for PE, transition heparin prophylaxis to treatment dose lovenox - I did call radiologist given underlying renal impairment (which actually seems better than baseline) and need for contrast/risk for contrast nephropathy --VQ scan of little value --suspicion of PE high --risk of contrast nephropathy there but relatively low (per radiology) --will given oral mucomyst x48 hours (which may not help but certainly will not cause harm) (2) Anemia: Plan: -H&H relatively stable (has been 8-9 since December) -Seeing as her hemoglobin has been in this range, I do not believe this is causing her shortness of breath -Exact etiology of anemia unclear. Patient is on dual antiplatelet therapy but no reports of rectal bleeding. She does have CKD -Will start work-up iron panel, erythropoietin level, haptoglobin, reticulocyte count, and stool for occult blood -Trend with follow-up labs (3) Type 2 diabetes mellitus with kidney complication, with long-term current use of insulin: Plan: -Patient has been continued on Lantus with the addition of log for sliding scale/correction dosing. Will monitor blood sugars (4) CAD (coronary artery disease): (5) Hypertension: Plan: -Chronic. No evidence of ACS -Continue dual antiplatelet therapy, Imdur, statin therapy and beta-blockade (6) Hyperlipidemia: Plan: -Continue statin therapy (7) Peripheral artery disease: Plan: -Continue dual antiplatelet therapy (Plavix/aspirin) (8) CKD (chronic kidney disease): Plan: -Appears stable and at baseline (baseline 2.5-3.0 with review of old records) -Unfortunately, degree of renal impairment needs to be excepted to keep his CHF compensated -Would have a low threshold to consult nephrology if needed -Patient's electrolytes, serum bicarb, and anion gap are all within normal limits -Avoid nephrotoxic agents and renally adjust meds when warranted Plan: -Plan of care will be discussed with Dr. Holland. Further orders as warranted. Admission and Anticipated Discharge Date Admission Date: January 20, 2021 Subjective Patient seen on daily rounds today. She is a 80 y/o WF with a PMHx of CHF (biventricular), DM, HTN, CKD, Asthma, PAD and CAD. She was hospitalized here at [facility] 12/31/20 through 01/12/21 for increasing dyspnea. Found to have Covid PNA (despite her initial negative coivd test-- tested positive on 01/03). Initially required Bipap but was able to be transitioned to supplemental O2 and was discharged to [facility] on 01/12 on RA Patient reports that while at [facility], she had a progressive weight gain with edema of the lower extremities/her abdominal girth and progressive shortness of breath I called [facility]: spoke to the nurse seed corn manager production who reported that patient did in fact have progressive edema of her lower extremities with an uptrending weight. Dry weight somewhere around 25-210 pounds. On day of discharge, weight was 219 but her CHF was clinically compensated. Per nurse seed corn manager production at [facility], weight reported as 221 on 01/16, and 225 on 01/20. Was subsequently discharged to home yesterday but upon getting into her house, she could not lift her legs into the door due to the edema and heaviness that she felt Does report some orthopnea stating that she has been sleeping in the recliner for the past several days C/O dry cough, orthopnea, PND. Denies chest pain or palpitations, fevers or chills. [facility] verifies that patient has not missed any doses of her Bumex Patient was initially placed on BiPAP while in the ED and provided 1 dose of IV Lasix. Her fluid balance since then is -720 Her chest x-ray showed some possible opacities and pulmonary edema but improved compared to prior film on 01/03 Her BNP was elevated at 11,000 (but with review of old records, patient was as high as 23,000 on 12/31) Echocardiogram reviewed from 01/07 does show a dilated right atrium. Limited study. This was a new finding compared to her echocardiogram done 2019. Review of Systems Review of Systems: All systems reviewed and are unremarkable except as noted in HPI and below + Progressive shortness of breath, dry cough, orthopnea, PND, peripheral edema. Denies fevers, chills, headache, nasal congestion, sore throat, chest pain, abdominal pain, nausea, vomiting, dysuria, hematuria, frequency, skin lesions or rashes. Physical Exam Physical Exam: General: Sitting upright in her hospital bed. Breathing comfortably at rest on supplemental oxygen. With very limited exertion opens (such as leaning forward), patient becomes dyspneic Neck: Difficult to assess for JVD due to substantial scar from old carotid endarterectomy but does appear to have JVD. Definitely has a positive hepatojugular reflex Cardiac: RRR with frequent ectopy with 2/6 to 3/6 EVESN Lungs: Breathing comfortably at rest on supplemental oxygen. With limited mov ement such as leaning forward, she becomes dyspneic. She does recover. She does have conversational dyspnea. CTA without W/R/R Abdomen: Normoactive X4. Soft and nontender in all quadrants. Extremities: 2-3+ pitting edema of the bilateral lower extremities tracking proximally up into and including the sacrum Neuro: A&O X4 cranial nerves II through XII are grossly intact no focal neuro deficits Skin: No obvious skin lesions or rashes Results & Data Results & Data ([facility]) Vital Signs (Past 12 Hours) Vital Signs Temp Pulse Pulse Resp BP BP BP 01/21/21 08:17 36.9 C 57 L 20 130/64 01/21/21 04:20 56 L 20 134/68 01/21/21 00:31 61 57 L 20 165/65 H 01/21/21 00:26 17 01/20/21 23:31 59 L 17 166/60 H 01/20/21 23:15 56 L 18 164/118 H 01/20/21 23:00 58 L 17 171/118 H 01/20/21 22:46 55 L 19 164/62 H 01/20/21 22:30 59 L 18 173/70 H 01/20/21 22:26 56 L 22 161/65 H 01/20/21 22:16 55 L 18 171/68 H 01/20/21 22:02 209/95 H 01/20/21 22:00 18 01/20/21 21:40 60 18 01/20/21 21:30 59 L 17 01/20/21 21:01 58 L 13 157/64 H 01/20/21 20:53 55 L 14 143/73 H 01/20/21 20:48 47 L 12 Pulse Ox 01/21/21 08:17 99 01/21/21 04:20 97 01/21/21 00:31 98 01/21/21 00:26 96 01/20/21 23:31 97 01/20/21 23:15 98 01/20/21 23:00 98 01/20/21 22:46 98 01/20/21 22:30 99 01/20/21 22:26 97 01/20/21 22:16 98 01/20/21 22:02 01/20/21 22:00 100 01/20/21 21:40 100 01/20/21 21:30 100 01/20/21 21:01 100 01/20/21 20:53 100 01/20/21 20:48 100 Laboratory Results 01/21/21 05:33 01/21/21 05:33 PG Care Time/CCT Total # of Minutes Spent Total Time Spent with Patient: Total time spent is greater than 50% in coordination of care (as documented) at patient's floor/unit and/or counseling patient: Coding Level of Care Code 78571 Subseq Hosp Care Lvl 3 Diagnoses Acute and chronic respiratory failure J96.20 Anemia D64.9 Type 2 diabetes mellitus with kidney complication, with long-term current use of insulin E11.29; Z79.4 CAD (coronary artery disease) I25.10 Hypertension I10 Hyperlipidemia E78.5 Peripheral artery disease I73.9 CKD (chronic kidney disease) N18.9
[2021-01-21] MEDS ORDERED: BUMETANIDE 1 MG TAB PO SCH (09:00)
[2021-01-21] MEDS ORDERED: HEPARIN SOD 5,000 UNIT/0.5 ML VIAL SQ SCH (09:00)
[2021-01-21] MEDS ORDERED: OPTIRAY 320 125ml IV ONE (09:38)
--- NOTE | 2021-01-21 10:07 | CT Scan Report ---
CT ANGIOGRAM OF THE CHEST CLINICAL HISTORY: r/o PE COMPARISON STUDY: December 31, 2020. TECHNIQUE: Following the IV administration of 120 mL of Optiray, CT angiogram of the thorax was perfo rmed from the thoracic inlet to the lung bases utilizing the pulmonary embolus protocol. Images are r eviewed in the axial, sagittal, and coronal planes. IV contrast was administered without complication . MIP imaging was performed. A dose lowering technique was utilized adhering to the principles of AL URIEL. CT DOSE: 854.64 mGy.cm FINDINGS: There is adequate opacification within main pulmonary artery. Main pulmonary artery remains dilated m easuring 3.1 cm in diameter which could be seen in pulmonary hypertension. No acute pulmonary embolus is seen. No evidence of right heart strain. Heart is normal in size without pericardial effusion. Severe coronary calcifications are seen. There is no axillary, supra clavicle or internal mammary lymphadenopathy seen. Multiple mediastinal l ymph nodes are not enlarged. There was no evidence of thoracic aortic dilatation. Tracheobronchial tree is patent. Mild septal thickening is seen within right apex and bilateral basis . Patchy centrilobular consolidative opacities with surrounding areas of groundglass attenuation are seen within bilateral upper and lower lobes, most prominent on the right. Small to moderate pleural e ffusion is seen bilaterally. Limited evaluation of upper abdominal viscera shows status post cholecystectomy and no evidence of ac krystal abnormalities. Small hiatal hernia is seen. Osseous structures: Multilevel degenerative changes of the spine and post sternotomy changes. Subcutaneous soft tissue edema is seen within right and left lateral inferior chest wall. Nodular lesion within breast tissue is seen on the right. IMPRESSION: 1. No acute pulmonary embolus. 2. Persistent dilatation of the main pulmonary artery could be seen in pulmonary hypertension. 3. Possible pulmonary edema. Patchy consolidative and groundglass opacities throughout bilateral geoff gs might represent multifocal pneumonia. Short-term follow-up with noncontrast CT of the chest in 4-6 weeks on nonemergency basis is suggested to document resolution. 4. Small to moderate bilateral pleural effusion. 5. Nodular lesion within the right breast. Please correlate this findings with results of most recen t mammography. 6. The rest of findings as above. ACT 112: Positive. There are findings on this exam that require communication between the performing entity and the patient following Patient Test Result Information Act ([place] Act 112) guidelines. The above report was generated using voice recognition software. It may contain grammatical, syntax o r spelling errors. Electronically signed by: Argelia Siddiqi DO 01/21/2021 10:06 AM
[2021-01-21] MEDS: BUMETANIDE 2 MG in SYRINGE 0 ML IV SCH ×2 (10:08→17:22)
[2021-01-21] MEDS: ACETYLCYSTEINE 600 MG CAP PO SCH ×2 (10:08→20:20)
[2021-01-21] MEDS: GABAPENTIN 100 MG CAP PO SCH (10:08)
[2021-01-21] MEDS: ENOXAPARIN 100 MG/1ML SYR SQ SCH (10:08)
[2021-01-21 10:57] LABS: Base Excess ABG -2.1 mEq/L (-9-1.8); HCO3 ABG 23 mmol/L (19-24); Oxygen Saturation ABG 96.3 % (90-95); PCO2 ABG 39 mmHg (35-46); PO2 ABG 83 mmHg (80-95); pH ABG 7.38 (7.35-7.45)
[2021-01-21 11:15] LABS: Allen Test Pos (Pos)
[2021-01-21] MEDS ORDERED: NON-FORMULARY MEDICATION (Iron 18 mg Tablet) PO SCH (11:30)
--- NOTE | 2021-01-21 12:10 | Electrocardiogram Report ---
Test Reason : Blood Pressure : / mmHG Vent. Rate : 050 BPM Atrial Rate : 050 BPM P-R Int : 222 ms QRS Dur : 152 ms QT Int : 550 ms P-R-T Axes : 025 -09 -14 degrees QTc Int : 501 ms Poor data quality, interpretation may be adversely affected Sinus bradycardia with 1st degree A-V block with occasional Premature ventricular complexes Right bundle branch block T wave abnormality, consider lateral ischemia Abnormal ECG When compared with ECG of 04-JAN-2021 01:19, Premature ventricular complexes are now Present NE interval has increased T wave inversion less evident in Lateral leads Confirmed by Heriberto Jauregui ([id number]) on 01/21/2021 12:10:30 PM Referred By: REFERRED SELF Confirmed By:Marcus Jauregui
[2021-01-21 14:22] LABS: Reticulocyte % 3.3 % (0.5-2.0); Reticulocytes # 0.09 10^6/uL (0.02-0.10)
[2021-01-21 14:42] LABS: Ferritin 363.4 ng/ml (8-388)
[2021-01-21] MEDS: INSULIN GLARGINE SOLOSTAR 100 UNITS/ML 3 ML PEN SQ SCH (20:18)
[2021-01-21] MEDS: PSYLLIUM 58.6% POWDER PACKET PO SCH (20:18)
[2021-01-21] MEDS: GABAPENTIN 400 MG CAP PO SCH (20:20)
[2021-01-21] MEDS: DOCUSATE SODIUM 100 MG CAP PO SCH (20:20)
--- NOTE | 2021-01-22 00:13 | Billing Data ---
Date of Service January 22, 2021 Coding Level of Care Code INT OBSERVATION CARE 70M LVL 3
[2021-01-22] MEDS: ACETAMINOPHEN 325 MG TAB PO PRN (06:25)
[2021-01-22 06:48] LABS: Basophils # (auto) 0.01 K/uL (0-0.2); Basophils % (auto) 0.2 %; Eosinophils # (auto) 0.13 K/uL (0-0.5); Hematocrit (blood only) 25.8 % (37-47); Hemoglobin 8.4 g/dL (12.0-16.0); Immature Granulocytes # (auto) 0.01 K/uL (0.00-0.02); Immature Granulocytes % (auto) 0.2 %; Lymphocytes # (auto) 0.48 K/uL (1.2-3.4); Lymphocytes % (auto) 7.3 %; Mean Corpuscular Hemoglobin 30.8 pg (25-34); Mean Corpuscular Hgb Conc 32.6 g/dL (32-36); Mean Corpuscular Volume 94.5 fL (80-100); Mean Platelet Volume 11.7 fL (7.4-10.4); Monocytes # (auto) 0.65 K/uL (0.11-0.59); Monocytes % (auto) 9.9 %; Neutrophils # (auto) 5.29 K/uL (1.4-6.5); Neutrophils % (auto) 80.4 %; Platelet Count 145 K/uL (130-400); RDW Coefficient of Variation 15.8 % (11.5-14.5); RDW Standard Deviation 54.4 fL (36.4-46.3); Red Blood Count 2.73 M/uL (4.2-5.4); White Blood Count 6.57 K/uL (4.8-10.8)
[2021-01-22 07:12] LABS: BUN Creatinine Ratio 41.1 (10-20); Calcium 8.8 mg/dl (8.5-10.1); Est GFR (African American) 22.2 ml/min; Est GFR (Non-African American) 19.2 ml/min; Magnesium 2.2 mg/dl (1.8-2.4); Potassium 4.5 mmol/L (3.5-5.1)
[2021-01-22] MEDS: GABAPENTIN 100 MG CAP PO SCH (08:34)
[2021-01-22] MEDS: ASPIRIN 81 MG ECTAB PO SCH (08:34)
[2021-01-22] MEDS: amLODIPine BESYLATE 5 MG TAB PO SCH (08:34)
[2021-01-22] MEDS: PANTOprazole 40 MG TAB PO SCH (08:34)
[2021-01-22] MEDS: hydrALAZINE TAB 50 MG TAB PO SCH ×3 (08:34→21:13)
[2021-01-22] MEDS: ENOXAPARIN 100 MG/1ML SYR SQ SCH (08:34)
[2021-01-22] MEDS: INSULIN ASPART 100 UNITS/ML 3 ML PEN SQ SCH ×4 (08:34→21:25)
[2021-01-22] MEDS: ACETYLCYSTEINE 600 MG CAP PO SCH ×2 (08:34→21:13)
[2021-01-22] MEDS: carvediloL 25 MG TAB PO SCH ×2 (08:34→21:14)
[2021-01-22] MEDS: METOCLOPRAMIDE HCL 5 MG TABLET PO SCH ×4 (08:34→21:11)
[2021-01-22] MEDS: SPIRONOLACTONE 25 MG TAB PO SCH (08:34)
[2021-01-22] MEDS: BUMETANIDE 2 MG in SYRINGE 0 ML IV SCH ×2 (08:34→17:23)
[2021-01-22] MEDS: CLOPIDOGREL BISULFATE 75 MG TAB PO SCH (08:34)
[2021-01-22] MEDS: ISOSORBIDE MONO EXTENDED REL 60 MG TABCR PO SCH ×2 (08:34→21:11)
[2021-01-22] MEDS: ALBUT/IPRATROP 3MG/0.5MG NEB 3 ML VIAL NEB SCH ×3 (12:21→19:36)
--- NOTE | 2021-01-22 14:08 | Hospitalist Progress Note ---
Date of Service January 22, 2021 Assessment & Plan (1) Acute and chronic respiratory failure: Plan: * this appears to be Right and Left sided (R>L) with diastolic dysfunction Echo done during last hospitalization (01/07) showing preserved EF 60-65 % with moderate MR. Grade II DD * Despite renal dysfunction, CTA done (given risk factors) and negative for PE * there is def. a component of left sided CHF which seems to be clinically improving (no longer feeling EASLEY and now denies orthopnea); however, still with crackles and wheezing. BNP upon admission was 11,000 (23,000 during last hospitalization but elevated [id number]) * Right sided symptoms likely multifactoral--> from left sided CHF, recent covid with residual infiltrates and patient likely has AMAYA (given habitus) * although she has infiltrates seen on her CTA, I believe that these are residual from recent covid. They seem to be improving and patient does not have a fever or elevated WBC thus I do not believe that abx therapy is warrented * continue IV Bumex (watching renal function closely, baseline Cr 2.5-3.0) along with oral aldactone * continue other disease modifying medications: imdur, coreg and hydralazine * continue to monitor I&O/daily weights * would be inclined to increase he usual dose of bumex from 2mg daily to bid upon D/C if renal function can tolerate. (2) Anemia: Plan: * H&H relatively stable (has been 8-9 since December) * Seeing as her hemoglobin has been in this range, I do not believe this is causing her shortness of breath * Exact etiology of anemia unclear but I suspect it is multifactorial--> Patient is on dual antiplatelet therapy but no reports of rectal bleeding and FOB negative. likely dilutional from CHF and from Anemia of Chronic Disease (CKD). erythropoetin level pending. Can consider procrit injections * Trend with follow-up labs (3) CKD (chronic kidney disease) stage 4, GFR 15-29 ml/min: Plan: * unfortunately, a degree of Worsening renal impairment likely needed to get/keep CHF compensated * baseline in remote past (2.5-3.0). Is 2.3 today * is receiving prophylactic Mucomyst given CTA done yesterday as to help protect against contrast nephropathy. May not help but certainly will cause no harm * continue to monitor * avoid nephrotoxic meds and renally adjust when warranted * Patient's electrolytes, serum bicarb, and anion gap are all within normal limits (4) Hyponatremia: Plan: * suspect hypervolumic hyponatremia * resolved with diuresis (5) Congestive heart failure: Plan: - BNP elevated to 11k as above, although down from previous admission - no evidence of pulm vasc congestion on CXR; however is noted on CT and symptoms better with diuresis. Nothing else to attribute symptoms (6) Type 2 diabetes mellitus with kidney complication, with long-term current us e of insulin: Plan: - A1c 7.5 on 01/01, at goal for age - continue home insulin regimen with novolog sliding scale - blood sugar checks ACHS - continue home dose statin - not on an ARI/ARB, likely due to kidney disease (7) CAD (coronary artery disease): Plan: * continue home dose ASA, plavix, statin, isosorbide mononitrate * no evidence of ACS (8) Breast nodule: Plan: * right breat nodule noted on CTA done yesterday * can FU with PCP/mammography Plan: to be D/W Dr. Holland. further orders as warrented Admission and Anticipated Discharge Date Admission Date: January 20, 2021 Subjective Patient seen on daily rounds today. She did have a CTA yesterday afternoon given risks for a PE (Covid in May and December) with RA dilation seen on recent echo (that was not see in prior study), her SOB with stable appearing and significant right sided CHF symptoms CTA was negative for PE. Did show stable infiltrates (from prior covid) and pulmonary edema and small pleural effusions Overall, patient is showing favorable response. Her SOB has improved as she is no longer getting dyspneic with minimal exertion (Such as eating and toileting) and she was able to lay flat to sleep. Denies F/C, CP, abd pain, N/V, GI/ symptoms Review of Systems Review of Systems: All systems reviewed and are unremarkable except as noted in HPI and below Denies fevers, chills, headache, nasal congestion, sore throat, cough, chest pain, abdominal pain, nausea, vomiting, dysuria, hematuria, frequency, skin lesions or rashes. Physical Exam Physical Exam: General: Resting comfortably in her hospital bed. NAD. Neck:scar to the right side of the neck without obvious JVD but + HJR Cardiac: RRR with 2-3/6 EVENS Lungs: breathing is overall improved compared to yesterday. She no longer has conversational dyspnea and doesn't appear winded just with leaning foward. Does still have bibasilar crackles and end expiratory wheezes throughout Abdomen: Normoactive X4. Soft and nontender in all quadrants. + HJR Extremities: Still with significant edema (3+) of the B/L LE tracking proximally to the thigh. No longer involving the sacrum Neuro: A&O X4 cranial nerves II through XII are grossly intact no focal neuro deficits Skin: No obvious skin lesions or rashes Results & Data Results & Data ([facility]) Vital Signs (Past 12 Hours) Vital Signs Temp Pulse Pulse Pulse Resp BP Pulse Ox 01/22/21 12:22 76 16 96 01/22/21 11:50 36.4 C L 59 L 16 145/65 H 98 01/22/21 09:29 61 01/22/21 07:51 36.7 C 58 L 16 157/69 H 97 01/22/21 04:27 61 Laboratory Results 01/22/21 06:17 01/22/21 06:17 Diagnostic Findings CTA of the chest: IMPRESSION: 1. No acute pulmonary embolus. 2. Persistent dilatation of the main pulmonary artery could be seen in pulmonary hypertension. 3. Possible pulmonary edema. Patchy consolidative and groundglass opacities throughout bilateral lungs might represent multifocal pneumonia. Short-term follow-up with noncontrast CT of the chest in 4-6 weeks on nonemergency basis is suggested to document resolution. 4. Small to moderate bilateral pleural effusion. 5. Nodular lesion within the right breast. Please correlate this findings with results of most recent mammography. 6. The rest of findings as above. PG Care Time/CCT Total # of Minutes Spent Total Time Spent with Patient: Total time spent is greater than 50% in coordination of care (as documented) at patient's floor/unit and/or counseling patient: C[place] [address] Subseq Hosp Care Lvl 3 Patient Type Established History Detailed Exam Detailed Medical Decision Making Moderate Complexity Diagnoses Acute and chronic respiratory failure J96.20 Anemia D64.9 CKD (chronic kidney disease) stage 4, GFR 15-29 ml/min N18.4 Congestive heart failure I50.9 Heart failure chronicity: unspecified Heart failure type: unspecified Type 2 diabetes mellitus with kidney complication, with long-term current use of insulin E11.29; Z79.4 CAD (coronary artery disease) I25.10 Hyponatremia E87.1 Breast nodule N63.0 (1) Congestive heart failure Heart failure chronicity: unspecified Heart failure type: unspecified Qualified Code(s): I50.9 - Heart failure, unspecified
[2021-01-22] MEDS ORDERED: SODIUM CHLORIDE 0.9% 10ML FLUSH IV ONE (19:29)
[2021-01-22] MEDS ORDERED: ATROPINE SULFATE 0.1 MG/ML 10ML SYR IV ONE (19:29)
[2021-01-22] MEDS: FORMOTEROL 20 MCG/2 ML VIAL NEB SCH (19:36)
[2021-01-22] MEDS: BUDESONIDE 0.5 MG/2 ML VIAL (PULMICORT) NEB SCH (19:36)
[2021-01-22] MEDS: GABAPENTIN 400 MG CAP PO SCH (21:13)
[2021-01-22] MEDS: traMADol HCL 50 MG TABLET PO PRN (21:13)
[2021-01-22] MEDS: DOCUSATE SODIUM 100 MG CAP PO SCH (21:15)
[2021-01-22] MEDS: INSULIN GLARGINE SOLOSTAR 100 UNITS/ML 3 ML PEN SQ SCH (21:25)
[2021-01-22] MEDS: PSYLLIUM 58.6% POWDER PACKET PO SCH (21:29)
[2021-01-23] MEDS ORDERED: COUGH DROP (SUGAR FREE) LOZ 24 LOZ/1 BOX BUCCAL PRN (00:48)
--- NOTE | 2021-01-23 04:32 | Communication Note ---
Date of Service: January 23, 2021 Notified by nursing at 04:28 that patient stated she had "coughed up some blood." Patient had thrown away tissues before nursing could see or quantify an amount. Has not had further coughing or hemoptysis since. -Continue to monitor for changes in respiratory status or further hemoptysis. Resident Activity Tracking Resident Involvement: Resident Care Provided and [employer] Coverage Note Care Provided: Adult Hospital Medicine
[2021-01-23 06:17] LABS: Basophils # (auto) 0.01 K/uL (0-0.2); Basophils % (auto) 0.1 %; Eosinophils # (auto) 0.12 K/uL (0-0.5); Eosinophils % (auto) 1.7 %; Hematocrit (blood only) 25.4 % (37-47); Hemoglobin 8.2 g/dL (12.0-16.0); Immature Granulocytes # (auto) 0.02 K/uL (0.00-0.02); Immature Granulocytes % (auto) 0.3 %; Lymphocytes # (auto) 0.65 K/uL (1.2-3.4); Lymphocytes % (auto) 9.3 %; Mean Corpuscular Hemoglobin 30.7 pg (25-34); Mean Corpuscular Hgb Conc 32.3 g/dL (32-36); Mean Corpuscular Volume 95.1 fL (80-100); Mean Platelet Volume 11.6 fL (7.4-10.4); Monocytes # (auto) 0.75 K/uL (0.11-0.59); Monocytes % (auto) 10.7 %; Neutrophils # (auto) 5.45 K/uL (1.4-6.5); Neutrophils % (auto) 77.9 %; Nucleated RBC # (auto) 0.02 K/uL (0-0); Nucleated RBC % (auto) 0.2 %; Platelet Count 148 K/uL (130-400); RDW Coefficient of Variation 15.9 % (11.5-14.5); RDW Standard Deviation 53.4 fL (36.4-46.3); Red Blood Count 2.67 M/uL (4.2-5.4)
[2021-01-23 07:14] LABS: Albumin Globulin Ratio 0.9 (0.9-2); Albumin Level 2.7 gm/dl (3.4-5.0); BUN Creatinine Ratio 35.7 (10-20); Bilirubin,Total 0.4 mg/dl (0.2-1); Calcium 8.7 mg/dl (8.5-10.1); Creatinine Clr Calc Pharmacy 18.4 ml/min; Est GFR (African American) 17.9 ml/min; Est GFR (Non-African American) 15.4 ml/min; Potassium 4.5 mmol/L (3.5-5.1); Total Protein 5.7 gm/dl (6.4-8.2)
[2021-01-23] MEDS: BUDESONIDE 0.5 MG/2 ML VIAL (PULMICORT) NEB SCH ×2 (07:31→19:30)
[2021-01-23] MEDS: ALBUT/IPRATROP 3MG/0.5MG NEB 3 ML VIAL NEB SCH ×4 (07:31→19:30)
[2021-01-23] MEDS: FORMOTEROL 20 MCG/2 ML VIAL NEB SCH ×2 (07:31→19:30)
--- NOTE | 2021-01-23 07:42 | Hospitalist Progress Note ---
Date of Service January 23, 2021 Assessment & Plan (1) Acute and chronic respiratory failure: Plan: * acute on chronic diastolic heart failure * seemed to present to the hospital with volume overload, was given nitro and lasix in ER Echo done during last hospitalization (01/07) showing preserved EF 60-65 % with moderate MR. Grade II DD continue IV Bumex decreased dose on 01/23/2021 due to escalation of creatinine (watching renal function closely, baseline Cr 2.5-3.0) along with oral aldactone * recent covid with residual infiltrates, but no fever or infectious symptoms * CTA negative for PE groundglass lesions could be heart failure or residual Covid other infectious markers seem to be negative for bacterial infections * continue other disease modifying medications: imdur, coreg and hydralazine * * As mentioned during last day patient has Citrobacter UTI greater than 100,000 colonies. It was resistant to ceftriaxone for which she was treated for CAP * * will not start antibiotics at this time unless febrile, recheck cath urine, am procal.crp and if still pulmonary symptoms consider biofire (2) Anemia: Plan: * H&H relatively stable (has been 8-9 since December) * Anemia of Chronic Disease (CKD). erythropoietin level pending. (3) CKD (chronic kidney disease) stage 4, GFR 15-29 ml/min: Plan: * unfortunately, a degree of Worsening renal impairment likely needed to get/keep CHF compensated * baseline in remote past (2.5-3.0). reduced bumex, seems euvolmeic * is receiving prophylactic Mucomyst given CTA done yesterday as to help protect against contrast nephropathy. (4) Hyponatremia: Plan: * suspect hypervolumic hyponatremia * resolved with diuresis (5) Congestive heart failure: Plan: - BNP elevated to 11k as above, although down from previous admission - no evidence of pulm vasc congestion on CXR; however no commital on CT chest (6) Type 2 diabetes mellitus with kidney complication, with long-term current use of insulin: Plan: - A1c 7.5 on 01/01, at goal for age - continue home insulin regimen with novolog sliding scale - blood sugar checks ACHS - continue home dose statin - not on an ARI/ARB, likely due to kidney disease (7) CAD (coronary artery disease): Plan: * continue home dose ASA, plavix, statin, isosorbide mononitrate * no evidence of ACS (8) Breast nodule: Plan: * right breast nodule noted on CTA 01/21/21 * needs to follow up with out pt mamography Admission and Anticipated Discharge Date Admission Date: January 22, 2021 Subjective Difficult patient to put together, initally not felt to be infectious unless latent Chest imaging from Covid. negative procal, treated for Diastolic HF althought pro bnp lower than usual, did have rise in Cr with increased diuresis, is with non productive cough except for the occasional blood tinged mucus, no fever no elevated WBC, but was recently hospitalized placing at some risk for HAP. Pt states she feels improved over her inital admission, during her last stay she did have a citrobacter uti resistant to ceftriaxone, which she was treated for CAP, will retest urine if fever start Cefepime Review of Systems Review of Systems: Mild distress and fatigue no headache, no visual changes no speech or swallowing issues no chest pain, pressure or palpitations no shortness of breath, scant blood-tinged productive cough no wheezes no abdominal pain, nausea or vomiting, diarrhea or constipation no dysuria, hematuria or frequency entheses initially was incontinent of urine) no focal joint pain or swelling no back pain, CVA tenderness or radicular pain no bruising, bleeding or rashes no focal signs of weakness or numbness or altered sensation no complaints of anxiety or depression.. Physical Exam Physical Exam: The patient appeared well nourished and normally developed. Vital signs as documented. Head exam is normocephalic atraumatic Neck is without JVD, thyromegaly, or carotid bruits. Lungs are few basilar rales which clear with deep inspiration patient however cannot sit up for me to listen to her back I to listen to them on the lateral side Cardiac exam, Rhythm is regular.. No murmurs, rubs or gallops. Abdominal exam reveals normal bowel sounds, soft non tender, no masses Extremities are nonedematous and both pedal pulses are present Neurologic exam is alert and oriented, no focal loss of strength or sensation Skin is without bruises or rashes Psychologically is without concerns for anxiety or depression Results & Data Results & Data ([facility]) Vital Signs (Past 12 Hours) Vital Signs Temp Pulse Pulse Resp BP BP Pulse Ox 01/23/21 06:56 97.9 F 62 18 144/72 H 95 01/23/21 04:56 67 01/23/21 03:30 98.1 F 66 18 108/56 L 95 01/23/21 01:02 67 01/22/21 23:09 97.3 F L 66 18 127/68 91 01/22/21 19:39 64 16 97 PG Care Time/CCT Total # of Minutes Spent Total Time Spent with Patient: Total time spent is greater than 50% in coordination of care (as documented) at patient's floor/unit and/or counseling patient: Coding Level of Care Code 04241 Subseq Hosp Care Lvl 3 Diagnoses Acute and chronic respiratory failure J96.20 Anemia D64.9 CKD (chronic kidney disease) stage 4, GFR 15-29 ml/min N18.4 Hyponatremia E87.1 Congestive heart failure I50.9 Heart failure chronicity: unspecified Heart failure type: unspecified Type 2 diabetes mellitus with kidney complication, with long-term current use of insulin E11.29; Z79.4 CAD (coronary artery disease) I25.10 Breast nodule N63.0 (1) Congestive heart failure Heart failure chronicity: unspecified Heart failure type: unspecified Qualified Code(s): I50.9 - Heart failure, unspecified
[2021-01-23] MEDS ORDERED: PHARMACY GLYCEMIC MGMT CONSULT PRN (07:52)
[2021-01-23] MEDS: INSULIN ASPART 100 UNITS/ML 3 ML PEN SQ SCH ×4 (08:54→20:46)
[2021-01-23] MEDS: METOCLOPRAMIDE HCL 5 MG TABLET PO SCH ×4 (08:56→20:46)
[2021-01-23] MEDS ORDERED: ROSUVASTATIN CALCIUM 5 MG TAB PO SCH (09:00)
[2021-01-23] MEDS: ASPIRIN 81 MG ECTAB PO SCH (09:00)
[2021-01-23] MEDS: ACETYLCYSTEINE 600 MG CAP PO SCH ×2 (09:00→20:45)
[2021-01-23] MEDS: amLODIPine BESYLATE 5 MG TAB PO SCH (09:00)
[2021-01-23] MEDS ORDERED: ENOXAPARIN INJ 40 MG/0.4 ML SYR SQ SCH (09:00)
[2021-01-23] MEDS: BUMETANIDE 2 MG in SYRINGE 0 ML IV SCH (09:01)
[2021-01-23] MEDS: carvediloL 25 MG TAB PO SCH ×2 (09:01→20:45)
[2021-01-23] MEDS: CLOPIDOGREL BISULFATE 75 MG TAB PO SCH (09:01)
[2021-01-23] MEDS: ISOSORBIDE MONO EXTENDED REL 60 MG TABCR PO SCH ×2 (09:02→20:45)
[2021-01-23] MEDS: hydrALAZINE TAB 50 MG TAB PO SCH ×3 (09:02→20:45)
[2021-01-23] MEDS: SPIRONOLACTONE 25 MG TAB PO SCH (09:02)
[2021-01-23] MEDS: GABAPENTIN 100 MG CAP PO SCH (09:02)
[2021-01-23] MEDS: PANTOprazole 40 MG TAB PO SCH (09:02)
--- NOTE | 2021-01-23 09:57 | Pharmacy Report ---
Pharmacy Glycemic Short Note 2 - Date of Service January 23, 2021 - Glycemic Short BSG Results (Last 24 hours): 01/22/21 01/22/21 01/22/21 11:34 16:27 19:58 Glucose POC Glucose 191 H 134 H 88 01/23/21 01/23/21 01/23/21 05:53 07:19 07:42 Glucose 39 L* POC Glucose 43 L* 151 H OUTPATIENT ANTIDIABETIC REGIMEN: * Lantus 30 units SQ qHS * Aspart 12-13 units TID with meals * A1c = 7.5% (01/01/21) ASSESSMENT: * Mrs. Sosa is a 80 yo woman with recent COVID-19 pneumonia who presented from acute rehab for worsening breathing, weight gain and peripheral edema. Recent hospital admission 12/31/20-01/12/21. During that time she required 53-70 units of insulin per day (while NOT on steroids) * Pharmacy consulted on 01/23/21. Patient with fasting hypoglycemia on home dose of basal insulin. * She received a total of 55 units of insulin yesterday (30 units of basal and 25 units bolus). * Will decrease basal insulin by ~ 25%. Carb coverage already loosened by provider. PLAN FOR INPATIENT GLYCEMIC CONTROL: * Hold outpatient oral diabetes medications * Basal insulin - decrease * Lantus 20 units SQ HS * Bolus insulin - loosen * NovoLog per scale ACHS or Q6hrs while NPO * Goal Range: Low 110 mg/dL - High 140 mg/dL * Correction Factor: 20 mg/dL/unit * Nutritional / Prandial insulin per carb ratio of 1 unit per 8 grams CHO consumed PLAN FOR DISCHARGE: * tbd
[2021-01-23] MEDS: GABAPENTIN 400 MG CAP PO SCH (20:45)
[2021-01-23] MEDS: INSULIN GLARGINE SOLOSTAR 100 UNITS/ML 3 ML PEN SQ SCH (20:46)
[2021-01-23] MEDS: PSYLLIUM 58.6% POWDER PACKET PO SCH (20:47)
[2021-01-23] MEDS: BENZONATATE 100 MG CAPSULE PO PRN (20:55)
[2021-01-23] MEDS: DOCUSATE SODIUM 100 MG CAP PO SCH (20:56)
[2021-01-23] MEDS: traMADol HCL 50 MG TABLET PO PRN (21:54)
[2021-01-23] MEDS: PATIENT'S HEIGHT NEEDED SCH ×3 (23:18→23:20)
[2021-01-24] MEDS ORDERED: guaiFENesin/DEXTROM SYRUP 100MG/10MG 5ML UDC PO ONE (00:34)
[2021-01-24] MEDS: BUDESONIDE 0.5 MG/2 ML VIAL (PULMICORT) NEB SCH ×2 (07:16→19:16)
[2021-01-24] MEDS: FORMOTEROL 20 MCG/2 ML VIAL NEB SCH ×2 (07:16→19:16)
[2021-01-24] MEDS: ALBUT/IPRATROP 3MG/0.5MG NEB 3 ML VIAL NEB SCH ×4 (07:18→19:15)
[2021-01-24 07:52] LABS: Basophils # (auto) 0.01 K/uL (0-0.2); Basophils % (auto) 0.1 %; Eosinophils # (auto) 0.09 K/uL (0-0.5); Eosinophils % (auto) 1.3 %; Hematocrit (blood only) 24.5 % (37-47); Hemoglobin 7.7 g/dL (12.0-16.0); Immature Granulocytes # (auto) 0.02 K/uL (0.00-0.02); Immature Granulocytes % (auto) 0.3 %; Lymphocytes # (auto) 0.58 K/uL (1.2-3.4); Lymphocytes % (auto) 8.4 %; Mean Corpuscular Hemoglobin 30.2 pg (25-34); Mean Corpuscular Hgb Conc 31.4 g/dL (32-36); Mean Corpuscular Volume 96.1 fL (80-100); Mean Platelet Volume 11.9 fL (7.4-10.4); Monocytes % (auto) 8.7 %; Neutrophils # (auto) 5.63 K/uL (1.4-6.5); Neutrophils % (auto) 81.2 %; Platelet Count 127 K/uL (130-400); RDW Coefficient of Variation 15.9 % (11.5-14.5); RDW Standard Deviation 54.5 fL (36.4-46.3); Red Blood Count 2.55 M/uL (4.2-5.4); White Blood Count 6.93 K/uL (4.8-10.8)
[2021-01-24] MEDS: INSULIN ASPART 100 UNITS/ML 3 ML PEN SQ SCH ×4 (08:17→20:45)
[2021-01-24] MEDS: METOCLOPRAMIDE HCL 5 MG TABLET PO SCH ×4 (08:18→20:44)
[2021-01-24] MEDS: ACETYLCYSTEINE 600 MG CAP PO SCH ×2 (08:18→20:33)
[2021-01-24] MEDS: ASPIRIN 81 MG ECTAB PO SCH (08:19)
[2021-01-24] MEDS: BUMETANIDE 2 MG in SYRINGE 0 ML IV SCH ×2 (08:19→20:34)
[2021-01-24] MEDS: amLODIPine BESYLATE 5 MG TAB PO SCH (08:19)
[2021-01-24] MEDS: carvediloL 25 MG TAB PO SCH ×2 (08:20→20:34)
[2021-01-24] MEDS: CLOPIDOGREL BISULFATE 75 MG TAB PO SCH (08:21)
[2021-01-24] MEDS: GABAPENTIN 100 MG CAP PO SCH (08:21)
[2021-01-24] MEDS: hydrALAZINE TAB 50 MG TAB PO SCH ×3 (08:21→20:41)
[2021-01-24] MEDS: SPIRONOLACTONE 25 MG TAB PO SCH (08:22)
[2021-01-24] MEDS: ISOSORBIDE MONO EXTENDED REL 60 MG TABCR PO SCH ×2 (08:22→20:43)
[2021-01-24 08:23] LABS: BUN Creatinine Ratio 32.6 (10-20); Calcium 9.1 mg/dl (8.5-10.1); Creatinine Clr Calc Pharmacy 14.8 ml/min; Est GFR (African American) 13.6 ml/min; Est GFR (Non-African American) 11.7 ml/min; Potassium 4.8 mmol/L (3.5-5.1)
[2021-01-24 08:24] LABS: C Reactive Protein 2.25 mg/dl (0-0.29); Phosphorus 5.9 mg/dl (2.5-4.9)
[2021-01-24 08:33] LABS: Basophilic Stippling 1+
[2021-01-24] MEDS ORDERED: EPOETIN ALFA 40,000 UNITS/ML VIAL SQ STA (08:42)
--- NOTE | 2021-01-24 09:36 | Pharmacy Report ---
Pharmacy Glycemic Short Note 2 - Date of Service January 24, 2021 - Glycemic Short BSG Results (Last 24 hours): 01/23/21 01/23/21 01/23/21 11:56 16:28 20:02 Glucose POC Glucose 116 H 103 H 143 H 01/24/21 01/24/21 01/24/21 05:55 07:28 07:36 Glucose 76 POC Glucose 109 H 85 OUTPATIENT ANTIDIABETIC REGIMEN: * Lantus 30 units SQ qHS * Aspart 12-13 units TID with meals * A1c = 7.5% (01/01/21) ASSESSMENT: 01/24 * Pt has received 37 units of insulin over the past 24hrs * 20 units of basal with Lantus * 17 units of bolus with NovoLog * BSGs [phone] mg/dl * All BSGs in goal range since reducing basal insulin last evening. No changes needed to regimen today 01/23 * Mrs. Sosa is a 80 yo woman with recent COVID-19 pneumonia who presented from acute rehab for worsening breathing, weight gain and peripheral edema. Recent hospital admission 12/31/20-01/12/21. During that time she required 53-70 units of insulin per day (while NOT on steroids) * Pharmacy consulted on 01/23/21. Patient with fasting hypoglycemia on home dose of basal insulin. * She received a total of 55 units of insulin yesterday (30 units of basal and 25 units bolus). * Will decrease basal insulin by ~ 25%. Carb coverage already loosened by provider. PLAN FOR INPATIENT GLYCEMIC CONTROL: * Hold outpatient oral diabetes medications * Basal insulin * Lantus 20 units SQ HS * Bolus insulin * NovoLog per scale ACHS or Q6hrs while NPO * Goal Range: Low 110 mg/dL - High 140 mg/dL * Correction Factor: 25 mg/dL/unit * Nutritional / Prandial insulin per carb ratio of 1 unit per 8 grams CHO consumed PLAN FOR DISCHARGE: * A1c = 7.5% on 01/01/21 * This is is goal range for patient based on age/co-morbidities. No changes needed to outpatient regimen unless patient is experiencing frequent hypo/hyperglycemia.
[2021-01-24] MEDS: ENOXAPARIN INJ 30 MG/0.3 ML SYR SQ SCH (09:37)
--- NOTE | 2021-01-24 10:53 | Nephrology Consultation ---
Date of Consultation January 24, 2021 Assessment & Plan (1) ELEAZAR (acute kidney injury): (2) Anemia: (3) Hyponatremia: (4) Acute and chronic respiratory failure: (5) Acute diastolic CHF (congestive heart failure): (6) Hyperphosphatemia: 80-year-old female with stage 4 CKD, baseline creatinine 2.5, secondary to renovascular disease. Admitted with respiratory distress and found to have volume overload with bilateral [id number]-[id number] pleural effusion pulmonary congestion. CT a with contrast was negative for PE. Remained persistently volume overloaded and net positive on current dose of Bumex of 2 mg IV daily. Renal function worsened over 3 days with creatinine 3.5 and BUN 114. ELEAZAR most likely hemodynamically mediated with IV contrast and diastolic dysfunction with underlying advanced CKD. Anemia with mild iron deficiency and hematoma. -- as she continues to be clinically volume overloaded and net positive with current dose of Bumex, increase Bumex to 2 mg IV twice a day. Aim for net negative. No acute indication for dialysis at this time however, if she remained net positive or renal function continues to worsen with volume overload, may need to consider dialysis in next 24-48 hours. Although with her advanced age and multiple other comorbidities, she may not tolerate dialysis very well. Discussed with Treva and her daughter Ana Luisa over telephone in detail and discussed about the pros and cons of long-term dialysis with her age and comorbidities. Treva will think about the options and discuss with her family and make decision regarding dialysis. With underlying advanced CKD, if we start her on dialysis, she will probably have to be on it as an ongoing basis. -- Start on Venofer, give 1 dose of Epogen. Monitor hemoglobin, if hemoglobin less than 5, recommend transfusing with 2 units of blood. -- Monitor intake and output closely -- will consider phosphate binder if phosphate remains high Will follow Thank you for allowing me to participate in your patient's care. It was a pleasure to see Treva History of Present Illness Reason for Consultation: Acute kidney injury, volume overload. Attending Physician: Carlos Schneider MD History of Present Illness Treva Sosa is a 80-year-old female with the past medical history significant for stage IV CKD, hypertension, diabetes, coronary artery disease, diastolic CHF admitted to the hospital with respiratory distress and volume overload. Nephrology consult was requested to manage ELEAZAR and volume overload. EMR records are reviewed in detail during patient's visit. Treva was brought to ER on 01/21/2020 with progressive shortness of breath. She was recently admitted to hospital with COVID pneumonia in December and got discharged on 01/13/2021. on admission she was found to be volume overloaded and started on Bumex 2 mg IV. there was concern for PE, had a CTA on 01/21/2021 which was negative for PE but found to have bilateral paxt-kw-xyhsobik pleural effusion and pulmonary vascular congestion. Renal function was at baseline, creatinine was around 2.3-2.4 which have worsened over last 2 days and creatinine up to 3.5 with BUN 114 this morning. Sodium 130, potassium has been normal. Overnight she was net positive with urine output of 1 L. Has stage IV CKD, baseline creatinine 2-2.5 with history of renovascular disease, hypertension, diabetes and atherosclerotic disease. Had L renal artery stenting 02/04. LE stenting 06/03 was complicated by retroperitoneal bleed requiring 5 U PRBC. Off of ARI/ARB held due to prior h/o ELEAZAR. Renal Doppler on May 2019 at [facility] reveals stenosis of R RA but no intervention was done as blood pressure was well controlled and patient did not want to have any intervention considering her frail health. During recent hospitalization with COVID pneumonia her creatinine peaked to 3.6 but improved close to baseline on discharge. Has moderate degree of proteinuria, paraproteinemia workup previously was negative. Imaging was negative for any postrenal obstruction. Nonsmoker. Her brother had ESRD and he was on dialysis. History of coronary artery disease, had CABG before. Has chronic congestive heart failure with diastolic dysfunction, has been on Bumex 2 mg daily. History of right renal artery stenosis status post stent before. She reports slight improvement in her respiratory distress. Has chronic anemia with iron deficiency however hemoglobin dropped to 7.7 today with hematoma in her abdomen related to heparin shot. Allergies Allergy/AdvReac Type Severity Reaction Status Date / Time Sulfa (Sulfonamide Allergy Intermediate RASH/PRURIT Verified 01/20/21 21:18 Antibiotics) IS sulfamethoxazole Allergy Intermediate RASH/PRURIT Verified 01/20/21 21:18 [From Bactrim] IS trimethoprim [From Bactrim] Allergy Intermediate RASH/PRURIT Verified 01/20/21 21:18 IS chlorpropamide AdvReac Intermediate N/V Verified 01/20/21 21:18 omeprazole AdvReac Intermediate interacts Verified 01/20/21 21:18 w/ clopidigrol ARI Inhibitors AdvReac Unknown AVOIDS Verified 01/20/21 21:18 SECONDARY TO "OTHER MEDICATIONS" PER PT Home Medications Medication Instructions Recorded Confirmed Type aspirin 81 mg tablet,delayed 81 mg PO QAM 04/23/18 01/20/21 History release docusate sodium 100 mg capsule 100 mg PO HS 04/23/18 01/20/21 History fluticasone propionate 50 1 spray INTRANASAL BID PRN 04/23/18 01/20/21 History mcg/actuation nasal spray,suspension (Flonase Allergy Relief) multivitamin (Multiple Vitamins) 1 tab PO QDL 04/23/18 01/20/21 History iron 18 mg tablet 18 mg PO QDL 11/28/18 01/20/21 History psyllium husk 3.4 gram/5.4 gram 1 tbsp PO HS 11/28/18 01/20/21 History oral powder (Metamucil) calcium 1 tab PO Q OTHER DAY tab 01/21/19 01/20/21 History puk-hnd-H8-Qi-mzrrkw-Lt-boron 250 mg-40 mg-125 unit tablet (Citracal-D3 Plus Magnesium) albuterol sulfate 90 mcg/actuation 2 puff INHALATION QID PRN #8.5 gm 05/22/19 01/20/21 Rx aerosol inhaler albuterol sulfate 2.5 mg INHALATION Q4H PRN #75 ml 06/03/19 01/20/21 Rx insulin aspart U-100 100 unit/mL See Rx Instructions SQ TID 90 Days 03/08/20 01/20/21 Rx (3 mL) subcutaneous pen (Novolog #45 ml Flexpen U-100 Insulin aspart) clopidogrel 75 mg tablet 75 mg PO DAILY #90 tab 03/28/20 01/20/21 Rx gabapentin 100 mg capsule 100 mg PO TID #270 cap 03/28/20 12/31/20 Rx blood-glucose meter (OneTouch #1 ea 04/05/20 12/14/20 History Verio Flex Start) blood sugar diagnostic (OneTouch #100 ea 04/06/20 12/14/20 Rx Verio test strips) lancets 33 gauge (BD Ultra Fine #100 ea 04/06/20 12/14/20 Rx Lancets) carvedilol 25 mg tablet 25 mg PO BID #180 tab 06/01/20 01/20/21 Rx spironolactone 50 mg tablet 50 mg PO QAM #90 tab 08/09/20 01/20/21 Rx hydralazine 100 mg tablet 100 mg PO TID #270 tab 08/29/20 01/20/21 Rx BD Ultra-Fine Short Pen Needle 31 #400 ea NS 08/30/20 12/14/20 Rx gauge x 5/16" (pen needle, diabetic) Ebonyaglpooja SantacruzikPen U-100 Insulin 100 30 unit SUBCUT HS 90 Days #30 ml NS 10/24/20 01/20/21 Rx unit/mL (3 mL) subcutaneous (insulin glargine) pantoprazole 40 mg tablet,delayed 40 mg PO DAILY #90 tab 11/01/20 01/20/21 Rx release nitroglycerin 0.4 mg sublingual 0.4 mg SUBLINGUAL UD PRN #25 tab 12/12/20 01/20/21 Rx tablet (Nitrostat) metoclopramide HCl 5 mg tablet 5 mg PO ACHS 12/31/20 01/20/21 History rosuvastatin 5 mg tablet 5 mg PO 2XWK 12/31/20 01/20/21 History bumetanide 2 mg tablet 2 mg PO DAILY #0 tab 01/12/21 01/20/21 Rx amlodipine 10 mg tablet 10 mg PO DAILY 01/20/21 01/20/21 History gabapentin 400 mg capsule 400 mg PO HS 01/20/21 01/20/21 History isosorbide mononitrate 60 mg 60 mg PO BID 01/20/21 01/20/21 History tablet,extended release 24 hr tramadol 50 mg tablet 50 - 100 mg PO BID PRN 01/20/21 01/20/21 History Patient History Medical History (Updated 01/24/21 @ 10:57 by Luna Contreras MD) Acute asthmatic bronchitis Acute diastolic CHF (congestive heart failure) Acute respiratory failure with hypoxia LEEAZAR (acute kidney injury) Anemia Asthma CAD (coronary artery disease) Chronic diastolic (congestive) heart failure COVID-19 Diabetic neuropathy Elevated troponin Gastroparesis GERD (gastroesophageal reflux disease) Hyperlipidemia Hyperphosphatemia Hypertension Lumbar canal stenosis Osteoarthritis of knee Osteopenia Peripheral artery disease Pneumonia due to COVID-19 virus Renal artery stenosis Secondary hyperparathyroidism Sinusitis Type 2 diabetes mellitus with kidney complication, 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, with long-term current use of insulin Vitamin D deficiency Surgical History History of back surgery History of cataract surgery History of cholecystectomy History of coronary artery bypass graft History of coronary artery stent placement History of hysterectomy History of tonsillectomy S/P carpal tunnel release Family History Unknown Coronary heart disease Diabetes Brain cancer Father Kidney disease Brother COPD (chronic obstructive pulmonary disease) Prostate cancer Myocardial infarction Hypertension Heart disease Sister Lung cancer Denies family history of Rheumatoid arthritis Sudden SIDS (sudden infant syndrome) Ovarian cancer Deep vein thrombosis Osteoporosis Dyslipidemia Cerebral aneurysm Alzheimer disease Bipolar disorder Clotting disorder Crohn's disease Dementia Depression Osteoarthritis Breast cancer Schizophrenia Congenital kidney disease Gestational diabetes Colorectal cancer Pulmonary embolism Lung disease Cancer Ulcerative colitis Colonic polyp Stroke Asthma Cystic kidney disease Social History Smoking Status: Never smoker Second Hand Exposure: No; Hx Alcohol Use: No Hx Substance Use: No Preferred Language: Slovenian Communication Ability: Effective Visual Impairment: No Limitations Hearing Ability: Normal Photographic Engineer Required: No Beliefs That Will Affect Care: None marital status: / Current Living Situation: Alone current occupational status: retired and disabled 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 Physical Exam Constitutional: WD/WN, vitals as above + ill appearing; no acute distress Eyes: PERRL, conjunctivae normal, anicteric sclerae ENMT: external ear and nose normal, oropharynx normal Ears: no hearing impairment Neck: trachea midline Respiratory: normal respiratory effort; no respiratory distress and no cough Auscultation: + crackles and + wheezes Conversational dyspnea. Cardiovascular: Rate/Rhythm: regular rate and regular rhythm Heart Sounds: normal S1 and normal S2 Extremities: + edema Gastrointestinal (Abdomen): normal bowel sounds, soft, nontender, no hepatosplenomegaly Inspection/Auscultation: + abdominal wall ecchymosis and + abdominal edema Percussion/Palpation: abdomen nontender, no guarding and abdomen not rigid Musculoskeletal: Extremities: extremities normal to inspection Skin: no rashes, warm and dry Neurologic: no focal motor deficits and not confused Psychiatric: A+Ox3, euthymic affect Results & Data ([facility]) Vital Signs (Past 12 Hours) Vital Signs Temp Pulse Pulse Resp BP Pulse Ox 01/24/21 07:33 57 L 01/24/21 07:17 57 L 19 94 01/24/21 07:04 36.4 C L 59 L 18 129/74 94 01/24/21 03:04 36.3 C L 67 18 119/48 L 90 01/23/21 23:59 71 01/23/21 23:36 72 18 117/65 90 PG Care Time/CCT Total # of Minutes Spent Total Time Spent with Patient: Total time spent is greater than 50% in coordin ation of care (as documented) at patient's floor/unit and/or counseling patient: Coding Level of Care Code 86341 Initial Inpt Care Lvl 3 Diagnoses ELEAZAR (acute kidney injury) N17.9 Anemia D64.9 Hyponatremia E87.1 Acute and chronic respiratory failure J96.20 Acute diastolic CHF (congestive heart failure) I50.31 Hyperphosphatemia E83.39
[2021-01-24] MEDS: IRON SUCROSE 200 MG in 0.9 % SODIUM CHLORIDE 100 ML IV SCH (11:02)
[2021-01-24] MEDS: PANTOprazole 40 MG TAB PO SCH ×2 (11:03→20:44)
--- NOTE | 2021-01-24 12:01 | XRay Report ---
SINGLE VIEW CHEST CLINICAL HISTORY: Pleural effusions. FINDINGS: An AP, portable, upright chest radiograph is compared to chest x-ray dated 01/20/2021 and cor related with chest CT dated 01/21/2021. The examination is degraded by portable technique and patient r otation. The patient is status post midline sternotomy. The heart is enlarged noting atherosclerotic calcification of the thoracic aorta. Confluent airspace consolidation throughout both lungs has incre ased as compared 01/20/2021. Small pleural effusions are noted. No pneumothorax is seen. The skeletal s tructures are osteopenic. The bony thorax is grossly intact. Fusion hardware is noted in the lower ce rvical spine. Surgical clips are noted in the left lower neck. IMPRESSION: 1. There is increasingly confluent multifocal airspace consolidation throughout both lungs as compare d to 01/20/2021. This could represent progressive pulmonary edema and/or multifocal pneumonia. Clinical correlation will be required. 2. Cardiomegaly and small pleural effusions. ACT 112: Negative or not required by law. ' Electronically signed by: Clinton Henson M.D. 01/24/2021 11:59 AM
--- NOTE | 2021-01-24 13:14 | Hospitalist Progress Note ---
Date of Service January 24, 2021 Assessment & Plan (1) Acute and chronic respiratory failure: Plan: * acute on chronic diastolic heart failure * seemed to present to the hospital with volume overload, was given nitro and lasix in ER Echo done during last hospitalization (01/07) showing preserved EF 60-65 % with moderate MR. Grade II DD continue IV Bumex nephrology has increased and is following for acute kidney injury on ckd 4 * recent covid with residual infiltrates, but no fever or infectious symptoms, cxr has worsened suspect is HFpef and worsening renal failure * * CTA negative for PE groundglass lesions could be heart failure or residual Covid other infectious markers (pro jodee) is negative for concern for bacterial infection * continue other disease modifying medications: imdur, coreg and hydralazine * * As mentioned during last day patient has Citrobacter UTI greater than 100,000 colonies. It was resistant to ceftriaxone for which she was treated for CAP * will not start antibiotics at this time unless febrile, recheck cath urine (2) Anemia: Plan: * anemia of chronic disease, given iron and procrit, follow levels at this time not symptomatic * Anemia of Chronic Disease (CKD). erythropoietin level pending. (3) CKD (chronic kidney disease) stage 4, GFR 15-29 ml/min: Plan: * unfortunately, a degree of Worsening renal impairment likely needed to get/keep CHF compensated * baseline in remote past (2.5-3.0). reduced bumex, seems euvolmeic * is receiving prophylactic Mucomyst given CTA done yesterday as to help protect against contrast nephropathy. (4) Hyponatremia: Plan: * suspect hypervolumic hyponatremia * resolved with diuresis (5) Congestive heart failure: Plan: - BNP elevated to 11k as above, although down from previous admission - no evidence of pulm vasc congestion on CXR; however no commital on CT chest (6) Type 2 diabetes mellitus with kidney complication, with long-term current use of insulin: Plan: - A1c 7.5 on 01/01, at goal for age - continue home insulin regimen with novolog sliding scale - blood sugar checks ACHS - continue home dose statin - not on an ARI/ARB, likely due to kidney disease (7) CAD (coronary artery disease): Plan: * continue home dose ASA, plavix, statin, isosorbide mononitrate * no evidence of ACS (8) Breast nodule: Plan: * right breast nodule noted on CTA 01/21/21 * needs to follow up with out pt mamography Admission and Anticipated Discharge Date Admission Date: January 22, 2021 Subjective pt still with cough overall feels somewhat improved, cxr looks like pulmonary edema, and renal function has declined Review of Systems Review of Systems: Mild distress and fatigue no headache, no visual changes no speech or swallowing issues no chest pain, pressure or palpitations no shortness of breath, cough occasionally productive of brown mucus or blood- tinged mucus no abdominal pain, nausea or vomiting, diarrhea or constipation no dysuria, hematuria or frequency no focal joint pain significant but improving lower extremity swelling no back pain, CVA tenderness or radicular pain no bruising, bleeding or rashes no focal signs of weakness or numbness or altered sensation no complaints of anxiety or depression.. Physical Exam Physical Exam: The patient appeared well nourished and normally developed. Vital signs as documented. Head exam is normocephalic atraumatic Neck is with 2+ JVD, thyromegaly, or carotid bruits. Lungs are bibasilar crackles with clear at the apex Cardiac exam, Rhythm is regular.. No murmurs, rubs or gallops. Abdominal exam reveals normal bowel sounds, soft non tender, no masses Extremities are 2+ edema bilaterally and both pedal pulses are present Neurologic exam is alert and oriented, no focal loss of strength or sensation Skin is without bruises or rashes Psychologically is without concerns for anxiety or depression Results & Data Results & Data ([facility]) Vital Signs (Past 12 Hours) Vital Signs Temp Pulse Pulse Resp BP BP Pulse Ox 01/24/21 11:44 97.5 F L 56 L 22 155/89 H 92 01/24/21 11:30 97.5 F L 56 L 20 149/66 H 94 01/24/21 11:00 97.5 F L 58 L 24 163/74 H 93 01/24/21 10:44 91 H 20 94 01/24/21 07:33 57 L 01/24/21 07:17 57 L 19 94 01/24/21 07:04 97.5 F L 59 L 18 129/74 94 01/24/21 03:04 97.3 F L 67 18 119/48 L 90 PG Care Time/CCT Total # of Minutes Spent Total Time Spent with Patient: Total time spent is greater than 50% in coordination of care (as documented) at patient's floor/unit and/or counseling patient: Coding Level of Care Code 71655 Subseq Hosp Care Lvl 3 Diagnoses Acute and chronic respiratory failure J96.20 Anemia D64.9 CKD (chronic kidney disease) stage 4, GFR 15-29 ml/min N18.4 Hyponatremia E87.1 Congestive heart failure I50.9 Heart failure chronicity: unspecified Heart failure type: unspecified Type 2 diabetes mellitus with kidney complication, with long-term current use of insulin E11.29; Z79.4 CAD (coronary artery disease) I25.10 Breast nodule N63.0 (1) Congestive heart failure Heart failure chronicity: unspecified Heart failure type: unspecified Qualified Code(s): I50.9 - Heart failure, unspecified
[2021-01-24] MEDS ORDERED: levoFLOXacin/D5W 750 MG/150 ML BAG IV SCH (16:15)
[2021-01-24] MEDS: guaiFENesin SUGAR FREE 200 MG/10 ML UDC PO PRN (18:22)
[2021-01-24] MEDS: GABAPENTIN 400 MG CAP PO SCH (20:33)
[2021-01-24] MEDS: DOCUSATE SODIUM 100 MG CAP PO SCH (20:41)
[2021-01-24] MEDS: INSULIN GLARGINE SOLOSTAR 100 UNITS/ML 3 ML PEN SQ SCH (20:42)
[2021-01-24] MEDS: PSYLLIUM 58.6% POWDER PACKET PO SCH (20:44)
[2021-01-25] MEDS: guaiFENesin SUGAR FREE 200 MG/10 ML UDC PO PRN ×2 (00:10→09:10)
[2021-01-25] MEDS: ACETAMINOPHEN 325 MG TAB PO PRN (05:17)
[2021-01-25 07:01] LABS: Hematocrit (blood only) 24.4 % (37-47); Hemoglobin 7.7 g/dL (12.0-16.0); Mean Corpuscular Hemoglobin 30.4 pg (25-34); Mean Corpuscular Hgb Conc 31.6 g/dL (32-36); Mean Corpuscular Volume 96.4 fL (80-100); Mean Platelet Volume 11.7 fL (7.4-10.4); Platelet Count 122 K/uL (130-400); RDW Standard Deviation 54.7 fL (36.4-46.3); Red Blood Count 2.53 M/uL (4.2-5.4); White Blood Count 8.67 K/uL (4.8-10.8)
[2021-01-25] MEDS: ALBUT/IPRATROP 3MG/0.5MG NEB 3 ML VIAL NEB SCH ×3 (07:23→15:22)
[2021-01-25] MEDS: BUDESONIDE 0.5 MG/2 ML VIAL (PULMICORT) NEB SCH (07:23)
[2021-01-25] MEDS: FORMOTEROL 20 MCG/2 ML VIAL NEB SCH (07:23)
[2021-01-25 07:34] LABS: Albumin Level 2.7 gm/dl (3.4-5.0); BUN Creatinine Ratio 33.8 (10-20); Calcium 8.8 mg/dl (8.5-10.1); Creatinine Clr Calc Pharmacy 14.4 ml/min; Est GFR (African American) 13.1 ml/min; Est GFR (Non-African American) 11.3 ml/min; Potassium 5.2 mmol/L (3.5-5.1)
[2021-01-25 07:36] LABS: Phosphorus 6.5 mg/dl (2.5-4.9)
[2021-01-25] MEDS: INSULIN ASPART 100 UNITS/ML 3 ML PEN SQ SCH ×2 (08:50→13:14)
[2021-01-25] MEDS: ENOXAPARIN INJ 30 MG/0.3 ML SYR SQ SCH (08:51)
[2021-01-25] MEDS: GABAPENTIN 100 MG CAP PO SCH (08:52)
[2021-01-25] MEDS: amLODIPine BESYLATE 5 MG TAB PO SCH (08:52)
[2021-01-25] MEDS: SPIRONOLACTONE 25 MG TAB PO SCH (08:52)
[2021-01-25] MEDS: ASPIRIN 81 MG ECTAB PO SCH (08:52)
[2021-01-25] MEDS: ACETYLCYSTEINE 600 MG CAP PO SCH (08:52)
[2021-01-25] MEDS: CLOPIDOGREL BISULFATE 75 MG TAB PO SCH (08:52)
[2021-01-25] MEDS: carvediloL 25 MG TAB PO SCH (08:52)
[2021-01-25] MEDS: METOCLOPRAMIDE HCL 5 MG TABLET PO SCH ×3 (08:53→16:35)
[2021-01-25] MEDS: hydrALAZINE TAB 50 MG TAB PO SCH ×2 (08:53→15:01)
[2021-01-25] MEDS: PANTOprazole 40 MG TAB PO SCH (08:53)
[2021-01-25] MEDS: ISOSORBIDE MONO EXTENDED REL 60 MG TABCR PO SCH (08:53)
[2021-01-25] MEDS: BUMETANIDE 2 MG in SYRINGE 0 ML IV SCH (08:53)
[2021-01-25] MEDS: IRON SUCROSE 200 MG in 0.9 % SODIUM CHLORIDE 100 ML IV SCH (09:03)
[2021-01-25] MEDS: BENZONATATE 100 MG CAPSULE PO PRN (09:42)
[2021-01-25] MEDS ORDERED: PATIROMER CALCIUM SORBITEX 8.4 GM PACK PO STA (09:54)
[2021-01-25 10:51] LABS: Erythropoietin 42.4 mIU/mL (2.6-18.5)
[2021-01-25] MEDS ORDERED: INSULIN HUMAN REGULAR PER UNIT 8 UNITS in SYRINGE 7.92 ML IV ONE (11:45)
[2021-01-25] MEDS ORDERED: BUMETANIDE 2 MG in SYRINGE 0 ML IV ONE (12:55)
--- NOTE | 2021-01-25 13:35 | Pharmacy Report ---
Pharmacy Glycemic Short Note 2 - Date of Service January 25, 2021 - Glycemic Short BSG Results (Last 24 hours): 01/24/21 01/24/21 01/25/21 16:20 19:36 06:33 Glucose 167 H POC Glucose 141 H 166 H 01/25/21 01/25/21 01/25/21 07:40 11:30 11:30 Glucose POC Glucose 203 H 321 H* 328 H* 01/25/21 13:09 Glucose POC Glucose 296 H OUTPATIENT ANTIDIABETIC REGIMEN: * Lantus 30 units SQ qHS * Aspart 12-13 units TID with meals * A1c = 7.5% (01/01/21) ASSESSMENT: 01/25 * Patient received 44 units of insulin yesterday * 20 units of basal and 24 units of bolus * BSGs elevated today, 205 and 321 mg/dL * Will increase Lantus this evening and tighten Novolog parameters + one-time IV insulin bolus * Patient is NPO after midnight for perm cath insertion - dialysis likely to be started tomorrow 01/24 * Pt has received 37 units of insulin over the past 24hrs * 20 units of basal with Lantus * 17 units of bolus with NovoLog * BSGs [phone] mg/dl * All BSGs in goal range since reducing basal insulin last evening. No changes needed to regimen today 01/23 * Mrs. Sosa is a 80 yo woman with recent COVID-19 pneumonia who presented from acute rehab for worsening breathing, weight gain and peripheral edema. Recent hospital admission 12/31/20-01/12/21. During that time she required 53-70 units of insulin per day (while NOT on steroids) * Pharmacy consulted on 01/23/21. Patient with fasting hypoglycemia on home dose of basal insulin. * She received a total of 55 units of insulin yesterday (30 units of basal and 25 units bolus). * Will decrease basal insulin by ~ 25%. Carb coverage already loosened by provider. PLAN FOR INPATIENT GLYCEMIC CONTROL: * Basal insulin * Lantus 25 units SQ daily * Bolus insulin * NovoLog per scale ACHS or Q6hrs while NPO * Goal Range: Low 110 mg/dL - High 140 mg/dL * Correction Factor: 25 mg/dL/unit * Nutritional / Prandial insulin per carb ratio of 1 unit per 6 grams CHO consumed PLAN FOR DISCHARGE: * A1c = 7.5% on 01/01/21 * This is is goal range for patient based on age/co-morbidities. No changes needed to outpatient regimen unless patient is experiencing frequent hypo/hype rglycemia.
[2021-01-25 13:38] LABS: Albumin Level 2.4 gm/dl (3.4-5.0); BUN Creatinine Ratio 32.6 (10-20); Calcium 8.7 mg/dl (8.5-10.1); Creatinine Clr Calc Pharmacy 14.1 ml/min; Est GFR (African American) 12.8 ml/min; Est GFR (Non-African American) 11.1 ml/min; Potassium 5.2 mmol/L (3.5-5.1)
[2021-01-25 13:39] LABS: Phosphorus 6.4 mg/dl (2.5-4.9)
--- NOTE | 2021-01-25 14:11 | Consultation ---
Date of Consultation January 25, 2021 Assessment & Plan (1) ELEAZAR (acute kidney injury): Pt scheduled for permcath insertion in OR [facility] by Dr Bruno. Procedure discussed with pt, she is agreeable. Patient was seen, examined, and chart reviewed. Agree with exam and treatment plan of the Vascular PA. History of Present Illness Reason for Consultation: ESRD, need permcath for HD Attending Physician: Carlos Schneider MD History of Present Illness 80 yo f with hx of CKD, CHF, gastroparesis, CAD, HTN, hyperlipidemia, DMII, renal art stenosis s/p renal stent, carotid stenosis s/p BL CEA, GERD, PAD, admitted with acute respiratory distress, pulmonary effusion, and found to have worsening renal disease, seen in consultation today for insertion of permcath for HD. Pt states no prior HD in past. Pt admits fatigue/malaise, edema, and EASLEY. Denies CONNOLLY, fever, chest pain, SOB, abd pain, N/V, rest pain, claudication, other complaints. Allergies Allergy/AdvReac Type Severity Reaction Status Date / Time Sulfa (Sulfonamide Allergy Intermediate RASH/PRURIT Verified 01/20/21 21:18 Antibiotics) IS sulfamethoxazole Allergy Intermediate RASH/PRURIT Verified 01/20/21 21:18 [From Bactrim] IS trimethoprim [From Bactrim] Allergy Intermediate RASH/PRURIT Verified 01/20/21 21:18 IS chlorpropamide AdvReac Intermediate N/V Verified 01/20/21 21:18 omeprazole AdvReac Intermediate interacts Verified 01/20/21 21:18 w/ clopidigrol ARI Inhibitors AdvReac Unknown AVOIDS Verified 01/20/21 21:18 SECONDARY TO "OTHER MEDICATIONS" PER PT Home Medications Medication Instructions Recorded Confirmed Type aspirin 81 mg tablet,delayed 81 mg PO QAM 04/23/18 01/20/21 History release docusate sodium 100 mg capsule 100 mg PO HS 04/23/18 01/20/21 History fluticasone propionate 50 1 spray INTRANASAL BID PRN 04/23/18 01/20/21 History mcg/actuation nasal spray,suspension (Flonase Allergy Relief) multivitamin (Multiple Vitamins) 1 tab PO QDL 04/23/18 01/20/21 History iron 18 mg tablet 18 mg PO QDL 11/28/18 01/20/21 History psyllium husk 3.4 gram/5.4 gram 1 tbsp PO HS 11/28/18 01/20/21 History oral powder (Metamucil) calcium 1 tab PO Q OTHER DAY tab 01/21/19 01/20/21 History xoc-kty-[id number]-Xi-lsqocu-Rf-boron 250 mg-40 mg-125 unit tablet (Citracal-D3 Plus Magnesium) albuterol sulfate 90 mcg/actuation 2 puff INHALATION QID PRN #8.5 gm 05/22/19 01/20/21 Rx aerosol inhaler albuterol sulfate 2.5 mg INHALATION Q4H PRN #75 ml 06/03/19 01/20/21 Rx insulin aspart U-100 100 unit/mL See Rx Instructions SQ TID 90 Days 03/08/20 01/20/21 Rx (3 mL) subcutaneous pen (Novolog #45 ml Flexpen U-100 Insulin aspart) clopidogrel 75 mg tablet 75 mg PO DAILY #90 tab 03/28/20 01/20/21 Rx gabapentin 100 mg capsule 100 mg PO TID #270 cap 03/28/20 12/31/20 Rx blood-glucose meter (OneTouch #1 ea 04/05/20 12/14/20 History Verio Flex Start) blood sugar diagnostic (OneTouch #100 ea 04/06/20 12/14/20 Rx Verio test strips) lancets 33 gauge (BD Ultra Fine #100 ea 04/06/20 12/14/20 Rx Lancets) carvedilol 25 mg tablet 25 mg PO BID #180 tab 06/01/20 01/20/21 Rx spironolactone 50 mg tablet 50 mg PO QAM #90 tab 08/09/20 01/20/21 Rx hydralazine 100 mg tablet 100 mg PO TID #270 tab 08/29/20 01/20/21 Rx BD Ultra-Fine Short Pen Needle 31 #400 ea NS 08/30/20 12/14/20 Rx gauge x 5/16" (pen needle, diabetic) Basaglar KwikPen U-100 Insulin 100 30 unit SUBCUT HS 90 Days #30 ml NS 10/24/20 01/20/21 Rx unit/mL (3 mL) subcutaneous (insulin glargine) pantoprazole 40 mg tablet,delayed 40 mg PO DAILY #90 tab 11/01/20 01/20/21 Rx release nitroglycerin 0.4 mg sublingual 0.4 mg SUBLINGUAL UD PRN #25 tab 12/12/20 01/20/21 Rx tablet (Nitrostat) metoclopramide HCl 5 mg tablet 5 mg PO ACHS 12/31/20 01/20/21 History rosuvastatin 5 mg tablet 5 mg PO 2XWK 12/31/20 01/20/21 History bumetanide 2 mg tablet 2 mg PO DAILY #0 tab 01/12/21 01/20/21 Rx amlodipine 10 mg tablet 10 mg PO DAILY 01/20/21 01/20/21 History gabapentin 400 mg capsule 400 mg PO HS 01/20/21 01/20/21 History isosorbide mononitrate 60 mg 60 mg PO BID 01/20/21 01/20/21 History tablet,extended release 24 hr tramadol 50 mg tablet 50 - 100 mg PO BID PRN 01/20/21 01/20/21 History Patient History Medical History Acute asthmatic bronchitis Acute diastolic CHF (congestive heart failure) Acute respiratory failure with hypoxia ELEAZAR (acute kidney injury) Anemia Asthma CAD (coronary artery disease) Chronic diastolic (congestive) heart failure COVID-19 Diabetic neuropathy Elevated troponin Gastroparesis GERD (gastroesophageal reflux disease) Hyperlipidemia Hyperphosphatemia Hypertension Lumbar canal stenosis Osteoarthritis of knee Osteopenia Peripheral artery disease Pneumonia due to COVID-19 virus Renal artery stenosis Secondary hyperparathyroidism Sinusitis Type 2 diabetes mellitus with kidney complication, 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, with long-term current use of insulin Vitamin D deficiency Surgical History History of back surgery History of cataract surgery History of cholecystectomy History of coronary artery bypass graft History of coronary artery stent placement History of hysterectomy History of tonsillectomy S/P carpal tunnel release Family History Unknown Coronary heart disease Diabetes Brain cancer Father Kidney disease Brother COPD (chronic obstructive pulmonary disease) Prostate cancer Myocardial infarction Hypertension Heart disease Sister Lung cancer Denies family history of Rheumatoid arthritis Sudden SIDS (sudden infant syndrome) Ovarian cancer Deep vein thrombosis Osteoporosis Dyslipidemia Cerebral aneurysm Alzheimer disease Bipolar disorder Clotting disorder Crohn's disease Dementia Depression Osteoarthritis Breast cancer Schizophrenia Congenital kidney disease Gestational diabetes Colorectal cancer Pulmonary embolism Lung disease Cancer Ulcerative colitis Colonic polyp Stroke Asthma Cystic kidney disease Social History Smoking Status: Never smoker Second Hand Exposure: No; Hx Alcohol Use: No Hx Substance Use: No Preferred Language: [place] Communication Ability: Effective Visual Impairment: No Limitations Hearing Ability: Normal Russian History Professor Required: No Beliefs That Will Affect Care: None marital status: / Current Living Situation: Alone current occupational status: retired and disabled 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[employer], 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 Physical Exam Constitutional: WD/WN, vitals as above + frail appearing, comfortable and + lethargic; + not healthy appearing and not in distress ENMT: Ears: no hearing impairment Neck: trachea midline (old neck surgical incisions wel healed) Respiratory: + labored breathing (mildly); no respiratory distress Auscul tation: + diminished lung sounds and + rales (basilar) Cardiovascular: Rate/Rhythm: regular rate and regular rhythm Vessels: posterior tibial pulses present, dorsalis pedis pulses present and radial pulses present; + abnormal peripheral pulses Extremities: normal capillary refill and + edema Gastrointestinal (Abdomen): Inspection/Auscultation: abdomen normal to inspection and normal bowel sounds Percussion/Palpation: abdomen nontender Musculoskeletal: no cyanosis or clubbing, extremities motor strength 5/5 Skin: no rashes, warm and dry Neurologic: moves all extremities and awake (wakens to voice, but falls asleep easily); no focal motor deficits Psychiatric: Orientation: oriented to person, oriented to place, oriented to time and cooperative Results & Data ([facility]) Vital Signs (Past 12 Hours) Vital Signs Temp Pulse Pulse Resp BP Pulse Ox 01/25/21 11:11 53 L 16 99/53 L 90 01/25/21 08:14 36.6 C 55 L 16 134/73 90 01/25/21 07:24 58 L 16 89 L 01/25/21 07:00 57 L
[2021-01-25 14:28] LABS: Hematocrit (blood only) 22.1 % (37-47); Hemoglobin 7.1 g/dL (12.0-16.0); Mean Corpuscular Hemoglobin 30.9 pg (25-34); Mean Corpuscular Hgb Conc 32.1 g/dL (32-36); Mean Corpuscular Volume 96.1 fL (80-100); Mean Platelet Volume 12.1 fL (7.4-10.4); Platelet Count 106 K/uL (130-400); Platelet Estimate Decreased (Normal); RDW Standard Deviation 54.9 fL (36.4-46.3); White Blood Count 6.75 K/uL (4.8-10.8)
[2021-01-25] MEDS ORDERED: SODIUM CHLORIDE 0.9% 250 ML IV PRN (15:03)
[2021-01-25] MEDS ORDERED: dexAMETHasone 4 MG in SYRINGE 0 ML IV ONE (15:03)
--- NOTE | 2021-01-25 15:10 | Hospitalist Progress Note ---
Date of Service January 25, 2021 Assessment & Plan (1) Acute and chronic respiratory failure: Plan: * acute on chronic diastolic heart failure * seemed to present to the hospital with volume overload, was given nitro and lasix in ER Echo done during last hospitalization (01/07) showing preserved EF 60-65 % with moderate MR. Grade II DD continue IV Bumex nephrology has increased and is following for acute kidney injury on ckd 4 * recent covid with residual infiltrates, but no fever or infectious symptoms, cxr has worsened suspect is HFpef and worsening renal failure * * CTA negative for PE groundglass lesions could be heart failure or residual Covid other infectious markers (pro jodee) is negative for concern for bacterial infection * continue other disease modifying medications: imdur, coreg and hydralazine * * As mentioned during last day patient has Citrobacter UTI greater than 100,000 colonies. It was resistant to ceftriaxone for which she was treated for CAP * will not start antibiotics at this time unless febrile, recheck cath urine (2) Urinary tract infection: (3) Hypothermia: (4) Anemia: Plan: * anemia of chronic disease, given iron and procrit, follow levels at this time not symptomatic * Anemia of Chronic Disease (CKD). erythropoietin level pending. (5) CKD (chronic kidney disease) stage 4, GFR 15-29 ml/min: Plan: * unfortunately, a degree of Worsening renal impairment likely needed to get/keep CHF compensated * baseline in remote past (2.5-3.0). reduced bumex, seems euvolmeic * is receiving prophylactic Mucomyst given CTA done yesterday as to help protect against contrast nephropathy. (6) Hyponatremia: Plan: * suspect hypervolumic hyponatremia * resolved with diuresis (7) Congestive heart failure: Plan: - BNP elevated to 11k as above, although down from previous admission - no evidence of pulm vasc congestion on CXR; however no commital on CT chest (8) Type 2 diabetes mellitus with kidney complication, with long-term current use of insulin: Plan: - A1c 7.5 on 01/01, at goal for age - continue home insulin regimen with novolog sliding scale - blood sugar checks ACHS - continue home dose statin - not on an ARI/ARB, likely due to kidney disease (9) CAD (coronary artery disease): Plan: * continue home dose ASA, plavix, statin, isosorbide mononitrate * no evidence of ACS (10) Breast nodule: Plan: * right breast nodule noted on CTA 01/21/21 * needs to follow up with out pt mamography Admission and Anticipated Discharge Date Admission Date: January 22, 2021 Subjective Patient has persistent decline in renal function scheduled for likely tunneled catheter placement on January 26 with dialysis subsequent to that. On January 25 having problems with lower body temperature. Is found to have a not Mandi fungal infection release 100,000 colonies or more. Unclear whether this was causing her hypothermia. We'll begin treatment with fluconazole at this time we'll check an a.m. cortisol. Warming blanket is applied Review of Systems Review of Systems: Mild distress and fatigue no headache, no visual changes no speech or swallowing issues no chest pain, pressure or palpitations no shortness of breath, cough occasionally productive of brown mucus or blood- tinged mucus no abdominal pain, nausea or vomiting, diarrhea or constipation no dysuria, hematuria or frequency no focal joint pain significant but improving lower extremity swelling no back pain, CVA tenderness or radicular pain no bruising, bleeding or rashes no focal signs of weakness or numbness or altered sensation no complaints of anxiety or depression.. Physical Exam Physical Exam: The patient appeared well nourished and normally developed. Vital signs as documented. Head exam is normocephalic atraumatic Neck is with 2+ JVD, thyromegaly, or carotid bruits. Lungs are bibasilar crackles with clear at the apex Cardiac exam, Rhythm is regular.. No murmurs, rubs or gallops. Abdominal exam reveals normal bowel sounds, soft non tender, no masses Extremities are 2+ edema bilaterally and both pedal pulses are present Neurologic exam is alert and oriented, no focal loss of strength or sensation Skin is without bruises or rashes Psychologically is without concerns for anxiety or depression Results & Data Results & Data ([facility]) Vital Signs (Past 12 Hours) Vital Signs Temp Pulse Pulse Resp BP Pulse Ox 01/25/21 11:11 53 L 16 99/53 L 90 01/25/21 08:14 97.9 F 55 L 16 134/73 90 01/25/21 07:24 58 L 16 89 L 01/25/21 07:00 57 L PG Care Time/CCT Total # of Minutes Spent Total Time Spent with Patient: Total time spent is greater than 50% in coordination of care (as documented) at patient's floor/unit and/or counseling patient: Coding Level of Care Code None Diagnoses Acute and chronic respiratory failure J96.20 Anemia D64.9 CKD (chronic kidney disease) stage 4, GFR 15-29 ml/min N18.4 Hyponatremia E87.1 Congestive heart failure I50.9 Heart failure chronicity: unspecified Heart failure type: unspecified Type 2 diabetes mellitus with kidney complication, with long-term current use of insulin E11.29; Z79.4 CAD (coronary artery disease) I25.10 Breast nodule N63.0 Urinary tract infection N39.0 Hypothermia T68.XXXA (1) Congestive heart failure Heart failure chronicity: unspecified Heart failure type: unspecified Qualified Code(s): I50.9 - Heart failure, unspecified
[2021-01-25] MEDS ORDERED: FLUCONAZOLE 100 MG TAB PO SCH (15:15)
[2021-01-25 17:49] LABS: Basophils # (auto) 0.01 K/uL (0-0.2); Basophils % (auto) 0.2 %; Eosinophils # (auto) 0.03 K/uL (0-0.5); Eosinophils % (auto) 0.5 %; Hemoglobin 7.6 g/dL (12.0-16.0); Immature Granulocytes # (auto) 0.05 K/uL (0.00-0.02); Immature Granulocytes % (auto) 0.8 %; Lymphocytes # (auto) 0.72 K/uL (1.2-3.4); Lymphocytes % (auto) 10.9 %; Mean Corpuscular Hemoglobin 31.5 pg (25-34); Mean Corpuscular Volume 95.4 fL (80-100); Mean Platelet Volume 11.9 fL (7.4-10.4); Monocytes # (auto) 0.46 K/uL (0.11-0.59); Neutrophils # (auto) 5.33 K/uL (1.4-6.5); Neutrophils % (auto) 80.6 %; Nucleated RBC # (auto) 0.04 K/uL (0-0); Nucleated RBC % (auto) 0.7 %; Platelet Count 122 K/uL (130-400); RDW Coefficient of Variation 16.1 % (11.5-14.5); RDW Standard Deviation 55.5 fL (36.4-46.3); Red Blood Count 2.41 M/uL (4.2-5.4)
[2021-01-25 18:11] LABS: BUN Creatinine Ratio 32.8 (10-20); Creatinine Clr Calc Pharmacy 13.5 ml/min; Est GFR (African American) 12.2 ml/min; Est GFR (Non-African American) 10.5 ml/min; Potassium 5.7 mmol/L (3.5-5.1)
[2021-01-25 18:16] LABS: Troponin I 0.03 ng/ml (0-0.045)
[2021-01-25 18:25] LABS: RBC Morphology Unremarkable
--- NOTE | 2021-01-25 20:21 | Nephrology Progress Note ---
Date of Service January 25, 2021 Assessment & Plan (1) ELEAZAR (acute kidney injury): (2) Anemia: (3) Hyponatremia: (4) Acute and chronic respiratory failure: (5) Acute diastolic CHF (congestive heart failure): (6) Hyperphosphatemia: Plan: 80-year-old female with stage 4 CKD, baseline creatinine 2.5, secondary to renovascular disease. Admitted with respiratory distress and found to have volume overload with bilateral [id number] pleural effusion pulmonary congestion. CT a with contrast was negative for PE. Remained persistently volume overloaded and net positive on current dose of Bumex of 2 mg IV daily. Renal function worsened over 3 days with creatinine 3.5 and BUN 114. ELEAZAR most likely hemodynamically mediated with IV contrast and diastolic dysfunction with underlying advanced CKD. Anemia with mild iron deficiency and hematoma. Renal function worsening, with mild hypokalemia, continues to make urine. -- Will consult vascular surgery for TDC and starting on HD as per pts wishes. --Veltassa 1 dose and repeat renal panel in afternoon -- continue on Venofer, received Epogen. Monitor hemoglobin, if hemoglobin less than 7, recommend transfusing with 2 units of blood. -- Monitor intake and output closely -- will consider phosphate binder if phosphate remains high Will follow Notes generated later, later in the afternoon, pt became hypothermic and bradycardic, Transferred to ICU Admission and Anticipated Discharge Date Admission Date: January 22, 2021 Beth Tilley was seen in he room in the morning. She looker comfortable and reported her breathing being better. Has been making urine. Kidney function worsened, K slightly elevated at 5.2, Bicarb OK. Hb low. Review of Systems Review of Systems: Detail ROS was unremarkable. Physical Exam Constitutional: + ill appearing; no acute distress Respiratory: normal respiratory effort; no respiratory distress Auscultation: + diminished lung sounds, + crackles and + wheezes Cardiovascular: Rate/Rhythm: regular rate and regular rhythm Extremities: + edema Neurologic: moves all extremities and awake; not confused Psychiatric: A+Ox3, euthymic affect Results & Data ([facility]) Vital Signs (Past 12 Hours) Vital Signs Temp Pulse Pulse Resp BP Pulse Ox 01/25/21 17:50 53 L 23 01/25/21 16:12 35.7 C L 64 16 139/62 96 01/25/21 16:06 36.3 C L 01/25/21 15:20 62 16 90 01/25/21 15:00 34.4 C L 01/25/21 13:35 34.1 C L 01/25/21 11:11 53 L 16 99/53 L 90 01/25/21 08:14 36.6 C 55 L 16 134/73 90 PG Care Time/CCT Total # of Minutes Spent Total Time Spent with Patient: Total time spent is greater than 50% in coordination of care (as documented) at patient's floor/unit and/or counseling patient: Coding Level of Care Code 25135 Subseq Hosp Care Lvl 2 Diagnoses ELEAZAR (acute kidney injury) N17.9 Anemia D64.9 Hyponatremia E87.1 Acute and chronic respiratory failure J96.20 Acute diastolic CHF (congestive heart failure) I50.31 Hyperphosphatemia E83.39
[2021-01-25] MEDS ORDERED: INSULIN GLARGINE SOLOSTAR 100 UNITS/ML 3 ML PEN SQ SCH (21:00)
[2021-01-26] MEDS ORDERED: INSULIN ASPART 100 UNITS/ML 3 ML PEN SQ SCH
[2021-01-26] MEDS ORDERED: ceFAZolin 2000MG 2,000 MG/15 ML SYR IV SCH (06:00)
--- NOTE | 2021-01-26 07:43 | Discharge Summary ---
Date of Service January 25, 2021 Admission HPI Per Admitting Provider Mrs. Sosa is a 80 yo woman who was brought to the [facility] ED from [facility] rehab due to concern for worsening breathing. Of note, she was admitted to [facility] from 12/31/20 to 01/12/21 for trouble breathing - on admission her COVID 19 testing was negative. However COVID testing was repeated on 01/03/21 which returned positive. She was treated with 8 days of IV dexamethasone - she was not a candidate for remdesirvir due to her underlying renal disease. She required BiPAP during her last admission but fortunately never had to be intubated. She was discharged to [facility] for acute rehab. For the first several days at [facility], Mrs. Sosa says she felt quite well. It was not until today that she began to have trouble breathing. She also noticed her abdominal girth had increased and her lower legs seemed to be more swollen than usual. She did not have physical therapy today - but did have a "tough" session yesterday (01/19/21). Per discussion with ED personnel, her oxygen saturation dropped to 89% at [facility]. [facility] also told nursing she had a weight gain (unclear of how much) and worsening swelling of her legs over the past 2 days. She was placed on Bipap prior to arrival to [facility]. Her blood pressure was reportedly borderline low, so she was placed on a nitro drip. She has no underlying history of lung disease. In the ED, she was afebrile, with a HR of 47 and a BP of 143/70; RR was normal at 12 and she was satting 100% on bipap. Her WBC was normal; she was lymphopenic. Her Hgb was 8.8. MCV 95. Coags WNL. Cr was 2.25. Na was low at 131, K normal at 4.8. AST elevated to 74, ALT to 104. Lactate not elevated. Procal not elevated. VBG showed a pH of 7.36, pCO2 of 47. Trop undetectable. BNP elevated to 11,945. COVID 19 neg. Blood cultures were drawn. She was given 40mg IV lasix Principal Diagnosis 01/25/21 at 1758 hours cause of apnea from acute stroke Discharge Exam after resuscitative efforts were make in accordance to her previous determined DNI status, efforts became futile as the pt did not have any respiratory drive and seemed only to be ventilating the right chest. she had repeated issues with profound bradycardia that was only rescued with atropine and epinephrine. She failed trials of bipap even with his pressures to only have her generate low TV and poor minute ventilation. She was eventually pronounced at 1758 hours Discharge Data Allergies Allergy/AdvReac Type Severity Reaction Status Date / Time Sulfa (Sulfonamide Allergy Intermediate RASH/PRURIT Verified 01/20/21 21:18 Antibiotics) IS sulfamethoxazole Allergy Intermediate RASH/PRURIT Verified 01/20/21 21:18 [From Bactrim] IS trimethoprim [From Bactrim] Allergy Intermediate RASH/PRURIT Verified 01/20/21 21:18 IS chlorpropamide AdvReac Intermediate N/V Verified 01/20/21 21:18 omeprazole AdvReac Intermediate interacts Verified 01/20/21 21:18 w/ clopidigrol ARI Inhibitors AdvReac Unknown AVOIDS Verified 01/20/21 21:18 SECONDARY TO "OTHER MEDICATIONS" PER PT Consultations 01/20/21 20:58 ED Decision to Admit Stat 01/23/21 16:13 Consult Nephrology Routine 01/25/21 09:56 Consult Vascular Surgery Routine Procedures Performed Operation Date: 01/26/21 12:30 <No data on this case meets the specified criteria> Ordered Studies 01/21/21 08:40 CT angio chest PE protocol Urgent 01/26/21 07:20 EV cvc insrt tunnel wo prt/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 Grade II DD continue IV [facility] nephrology has increased and is following for acute kidney injury on ckd 4 * recent covid with residual infiltrates, but no fever or infectious symptoms, cxr has worsened suspect is HFpef and worsening renal failure * * CTA negative for PE ground glass lesions could be heart failure or residual Covid other infectious markers (pro jodee) is negative for concern for bacterial infection * continue other disease modifying medications: imdur, coreg and hydralazine * * (3) Urinary tract infection: (4) Hypothermia: (5) Anemia: * anemia of chronic disease, given iron and procrit, (6) CKD (chronic kidney disease) stage 4, GFR 15-29 ml/min: * (7) Hyponatremia: * suspect hypervolumic hyponatremia * (8) Congestive heart failure: - BNP elevated to 11k as above, although down from previous admission , hfpef - no evidence of pulm vasc congestion on CXR; however no commital on CT chest (9) Type 2 diabetes mellitus with kidney complication, with long-term current use of insulin: - A1c 7.5 on 01/01, at goal for age (10) CAD (coronary artery disease): * continue home dose ASA, plavix, statin, isosorbide mononitrate * no evidence of ACS * h/o PAD with bilateral CEA (11) Breast nodule: * right breast nodule noted on CTA 01/21/21 * needs to follow up with out pt mamography Total Time Total Time Spent Total Time Spent (In Minutes): It required greater than 30 minutes to prepare this patient for discharge Discharge Plan Discharge Items Patient Disposition: Discharge Diagnosis: acute CVA resulting in apnea contributing factor acute renal failure PAD Addtl Attending Provider Instructions: . Coding Level of Care Code D/C DAY MANAGEMENT >30 MINS Diagnoses Acute and chronic respiratory failure J96.20 Urinary tract infection N39.0 Hypothermia T68.XXXA Anemia D64.9 CKD (chronic kidney disease) stage 4, GFR 15-29 ml/min N18.4 Hyponatremia E87.1 Congestive heart failure I50.9 Heart failure chronicity: unspecified Heart failure type: unspecified Type 2 diabetes mellitus with kidney complication, with long-term current use of insulin E11.29; Z79.4 CAD (coronary artery disease) I25.10 Breast nodule N63.0 R99
[2021-01-26] MEDS ORDERED: ceFAZolin 1000MG 1,000 MG/7.5 ML SYR IV ONE (12:00)
[2021-01-26] MEDS ORDERED: INSULIN GLARGINE SOLOSTAR 100 UNITS/ML 3 ML PEN SQ SCH (17:30)
--- NOTE | 2021-01-26 18:21 | Electrocardiogram Report ---
Test Reason : Blood Pressure : / mmHG Vent. Rate : 027 BPM Atrial Rate : 000 BPM P-R Int : 000 ms QRS Dur : 156 ms QT Int : 510 ms P-R-T Axes : 000 -33 105 degrees QTc Int : 341 ms Poor data quality, interpretation may be adversely affected Sinus rhythm with probable complete heart block and ventricular escape Left axis deviation Right bundle branch block ST segment changes consistent with ischemia Abnormal ECG Confirmed by Heriberto Jauregui ([id number]) on 01/26/2021 6:20:57 PM Referred By: REFERRED SELF Confirmed By:Marcus Jauregui
== END 2021-01-25 19:30 | disposition expired | DRG 291 ==
LOC: ED 19:20 → 2N 19:20 → SUATTDRO 21:52 → 2N 23:52 → SUATTDRO 01-22 15:59 → 2N 01-23 04:22 → 1E 01-25 17:32